=== PATIENT | male | born 1940 | race Caucasian/White ===

== ENCOUNTER 2022-11-05 11:02 | Inpatient (IN) | payer MEDICARE ==
[~2022-11-05] VITALS: Ht 170.2 cm; Wt 53.0 kg
[2022-11-05] MEDS ORDERED: LOPERAMIDE 2 MG (IMODIUM) TABLET PO PRN (11:15)
[2022-11-05] MEDS ORDERED: ONDANSETRON 4 MG (ZOFRAN) ORAL DISSOLVE TAB PO PRN (11:15)
[2022-11-05] MEDS ORDERED: ALPRAZolam 0.25 MG (XANAX) TAB PO PRN (11:15)
[2022-11-05] MEDS ORDERED: DOCUSATE SODIUM 100 MG (COLACE) CAP PO PRN (11:15)
[2022-11-05] MEDS ORDERED: diphenhydrAMINE 25 MG TAB (BENADRYL) PO PRN (11:15)
[2022-11-05] MEDS ORDERED: MELATONIN 3 MG TABLET PO PRN (11:15)
[2022-11-05] MEDS ORDERED: BISACODYL 10 MG SUPP (DULCOLAX) PR PRN (11:15)
[2022-11-05] MEDS ORDERED: FLEET ENEMA ADULT 1 EA BTL PR PRN (11:15)
[2022-11-05] MEDS ORDERED: CALCIUM CARBONATE 500 MG (TUMS) TAB.CHEW PO PRN (11:15)
[2022-11-05] MEDS ORDERED: ATOR80TA76 PO (13:34)
[2022-11-05] MEDS ORDERED: METO50TA15 PO (13:34)
[2022-11-05] MEDS ORDERED: ACET-2650 PO (13:34)
[2022-11-05] MEDS ORDERED: HYDR-3922 PO (13:34)
[2022-11-05] MEDS ORDERED: TRM50T PO (13:34)
[2022-11-05] MEDS ORDERED: METH-731 PO (13:34)
[2022-11-05] MEDS ORDERED: ASPI-1238 PO (13:34)
[2022-11-05] MEDS ORDERED: FERR324T22 PO (13:34)
[2022-11-05] MEDS ORDERED: CARV12.53 PO (13:34)
[2022-11-05] MEDS ORDERED: SENN-145 PO (13:34)
[2022-11-05] MEDS ORDERED: MULT-1136 PO (13:34)
[2022-11-05] MEDS ORDERED: VITA1TAB17 PO (13:34)
--- OUTSIDE RECORDS SUMMARY | 2022-11-05 14:57 | XMS REPORT | Encounter Summary ---
Author Author [facility] Organization [facility] Address Unknown Phone Unavailable Care Team Providers Care Human Resources Recruiter Name Role Phone Jorge Luis Cuba MD PCP Reason for Referral * Consult, Test & Treat (Discharge Pending) - New Request Diagnoses / Procedures Referred By Contact Referred To Conta ct Specialty Diagnoses Mass of right lung Procedures APPOINTMENT REQUEST: [facility] Shanelle Martinez APRN-NP [address] [facility] [address] [place] [address] [facility] Ex [address] Level [address] [place] [address] Oncology Referral ID Status Reason Start Date Expiration Visits Vi sits Date Requested Authorized [id number] New Request 11/05/2022 11/05/2023 1 1 RIBUTOR OPERATOR * Consult, Test & Treat (Discharge Pending) - Pending Review Diagnoses / Procedures Referred By Contact Referred To Conta ct Specialty Diagnoses Essential tremor Procedures APPOINTMENT REQUEST: NEUROSURGERY Madhavi Rodrigez APRN-NP [address] [facility] [address] [place] [address] [facility] 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 [place] [address] Neurosurgery Referral ID Status Reason Start Date Expiration Visits Vi sits Date Requested Authorized [id number] New Request 10/29/2022 10/29/2023 1 1 RIBUTOR OPERATOR Reason for Visit * Reason Comments Extremity Weakness All extremity weakness - tr emors - gargled speech - all symptoms x2 weeks - seen at [facility] tojules cali and told he has a subdural hematoma and possible stroke and told t o come to this ER * Auth/Cert (Routine) Diagnoses / Procedures Referred By Contact Referred To Conta ct Specialty Diagnoses SDH (subdural hematoma) Referral ID Status Reason Start Date Expiration Visits Vi sits Date Requested Authorized [id number] 1 1 Encounter Details Care Team Description Date Type Department Hunter Hernandez MD [address] [facility] [place] [address] Portillo March MD [address] [place] [address] Chioma Metzger MD [address] [facility] [place] [address] Sahil Mejia MD [address] [place], [place] [id number] Jose Manuel Montague MD [address] [place], [place] [id number] SDH (subdural hematoma) 10/24/2022 Hospital Patient Care Unit C [facility] - [facility]/05/2022 [address] [facility] 7 [place] [address] Social History Date Tobacco Use Types Packs/Day Years Used Smoking Tobacco: Every Cigarettes 0.5 Day Smokeless Tobacco: Never Comments Alcohol Use Standard Drinks/Week Not Currently 0 (1 standard drink = 0.6 o z pure alcohol) Sex Assigned at Date Recorded Not on file Date Recorded COVID-19 Exposure Response 10/24/2022 5:04 PM DISTRIBUTOR OPERATOR In the last 10 days, have you been in contact with N o / Unsure someone who was confirmed or suspected to have Coronavirus/COVID-19? documented as of this encounter Last Filed Vital Signs Reading Time Taken Comments Vital Sign 131/52 11/05/2022 7:45 AM DISTRIBUTOR OPERATOR Blood Pressure 56 11/05/2022 7:45 AM DISTRIBUTOR OPERATOR Pulse 36.8 C (98.3 F) 11/05/2022 7:45 AM DISTRIBUTOR OPERATOR Temperature - - Respiratory Rate 97% 11/05/2022 7:45 AM DISTRIBUTOR OPERATOR Oxygen Saturation - - Inhaled Oxygen Concentration 58.5 kg (129 lb) 10/25/2022 9:02 AM DISTRIBUTOR OPERATOR Weight 170.2 cm (5' 7") 10/25/2022 9:02 AM DISTRIBUTOR OPERATOR Height 20.2 10/25/2022 9:02 AM DISTRIBUTOR OPERATOR Body Mass Index documented in this encounter Functional Status Date of Assessment Functional Status Response 10/24/2022 Does the patient have a hearing impairment: No 09/27/2022 Does the patient have a visual impairment: Yes 09/27/2022 Does the patient have impaired ambulation: No 09/27/2022 Does the patient have an activity of daily living No (ADL) impairment: 09/27/2022 Does the patient have an instrumental activity of No daily living (IADL) impairment: Date of Assessment Cognitive Status Response 09/27/2022 Does the patient have a cognitive impairment: No documented as of this encounter Discharge Summaries * Amna Dent - 11/05/2022 11:32 AM CST CARBON FURNACE OPERATOR Note: Printed and placed transfer packet in the pt's wall unit per request from JAKE Alexander. Amna Dent Manager Primary For additional assistance please contact [facility] * RIBUTOR OPERATOR * Usha Arechiga LMSW - 11/05/2022 10:53 AM CST Case Management Progress Note NAME:Scot Bell :[birth year] AGE: 82 y.o. ADMISSION DATE: 10/24/2022 DAYS ADMITTED: LOS: 11 days Today's Date: 11/05/2022 PLAN: D/c to [facility] today by 12:30. Daughter to transport by POV. RN report #: Expected Discharge Date: 11/06/2022 4:00 PM Is Patient Medically Stable: Yes Are there Barriers to Discharge? no INTERVENTION/DISPOSITION: Discharge Planning [facility] has insurance auth and can accept today SW updated [facility] attending, who states that pt can d/c today Spoke with daughter who is at bedside and she states that she can transport h im today. IPR neds pt at facility before 3pm. Pt needs to leave by 12:30pm to make it o n time. SW updated [facility] admissions on plan. Tasked CARBON FURNACE OPERATOR to deliver transfer packet Transportation Will the Patient Use Family Transport?: Yes Transportation Name, Phone and Availability #1: pt's dtr Tamika [phone] Support Info or Referral Medication Needs Financial Legal Other Discharge Disposition Selected Continued Care - Admitted Since 10/24/2022 [facility] Destination Coordination complete. Service Provider Selected Services Address Phone Fax Patient Preferred [facility] Inpatient Rehabilitation [address] [place] [address] [phone] -- Usha Arechiga LMSW Available on [employer] Work RIBUTOR OPERATOR * Usha Arechiga LMSW - 10/31/2022 11:07 AM CST Case Management Progress Note NAME:Scot Bell :[birth year] AGE: 82 y.o. ADMISSION DATE: 10/24/2022 DAYS ADMITTED: LOS: 6 days Today's Date: 10/31/2022 PLAN[facility] [place] pending insurance auth and medical s tability Expected Discharge Date: 11/01/2022 12:00 PM Is Patient Medically Stable: No, Please explain: needs bronch Are there Barriers to Discharge? no INTERVENTION/DISPOSITION: Discharge Planning SW received return call from February in admissions at [facility] and they are able to accept pt for rehab. SW requests that they send to insurance for prior auth Pt still needing bronch SW called daughter and updated on approval. She remains in agreement with leonela culver Transportation Will the Patient Use Family Transport?: Yes Transportation Name, Phone and Availability #1: pt's dtr Tamika [phone] Support Info or Referral Medication Needs Financial Legal Other Discharge Disposition Selected Continued Care - Admitted Since 10/24/2022 [facility] Destination Coordination complete. Service Provider Selected Services Address Phone Fax Patient Preferred [facility] Inpatient Rehabilitation [address] [place] [phone] -- Usha Arechiga LMSW Available on [employer] Work RIBUTOR OPERATOR * Usha Arechiga LMSW - 10/30/2022 2:37 PM CST Case Management Progress Note NAME:Scot Bell :[birth year] AGE: 82 y.o. ADMISSION DATE: 10/24/2022 DAYS ADMITTED: LOS: 5 days Today's Date: 10/30/2022 PLAN: D/c to [facility] pending facility acceptance and insurance auth Expected Discharge Date: 11/01/2022 12:00 PM Is Patient Medically Stable: No, Please explain: finishing up procedures today Are there Barriers to Discharge? no INTERVENTION/DISPOSITION: Discharge Planning SW f/u with pt's daughter about dispo. Discussed differences between SNF and IPR. Dtr reports that whenever he is done at post acute facility he can live with her and she can help provide care if needed. Dtr requests referral be sent to IPR closest to [facility]. SW faxed referral to [facility] Transportation Will the Patient Use Family Transport?: Yes Transportation Name, Phone and Availability #1: pt's dtr Tamika [phone] Support Info or Referral Medication Needs Financial Legal Other Discharge Disposition Selected Continued Care - Admitted Since 10/24/2022 No services have been selected for the patient. Usha Arechiga LMSW Available on [employer] Work RIBUTOR OPERATOR * Deb Silva - 10/26/2022 10:29 AM CST CARBON FURNACE OPERATOR Note Emailed in network SNF list from pt's zip code & [place] Ricardo Per JAKE Cisneros. Ibis Silva Manager Primary For additional assistance please contact Case Management RIBUTOR OPERATOR * Chloe Pepe LMSW - 10/26/2022 9:35 AM CST .physical science technician Case Management Progress Note NAME:Scot Bell :[birth year] AGE: 82 y.o. ADMISSION DATE: 10/24/2022 DAYS ADMITTED: LOS: 1 day Today's Date: 10/26/2022 PLAN: Anticipate dc to SNF pending medical stability, facility acceptance and in surance auth. Expected Discharge Date: 10/29/2022 12:00 PM Is Patient Medically Stable: No, Please explain: ongoing medical care Are there Barriers to Discharge? no INTERVENTION/DISPOSITION: Discharge Planning JOEY asked provider to put in a rehab consult to determine appropriate level of care. SW tasked CARBON FURNACE OPERATOR for in network list of SNF list. SW talked to Tamika pt's dtr about support plan. Pt lives with his 2 sons. One works about 65 hours per week and is not home very often. the other brother has some mental health issues and can't really be depended on to assist much. She lives about 40 minutes away and works two jobs and is tongue and groove machine feeder sometimes so her i nteractions are limited as well. Sounds like pt may need SNF as he may need a lo nger time at a facility before going back home. Will bring dtr a list of facil ities to choose from to start planning. SW sent a referral to [facility] upon pt's dtr request. Case Management Admission Assessment NAME:Scot Bell : 1 AGE: 82 y.o. ADMISSION DATE: 10/24/2022 DAYS ADMITTED: LOS: 1 day Todays Date: 10/26/2022 Source of Information: Patient's dtr Tamika Plan Plan: Case Management Assessment, Psychosocial Assessment, Assist PRN with SW/NC M Services, Discharge Planning for Post-Acute Facility Plan: Case Management Assessment, Assist PRN with SW/NCM Services, Discharge Tom nning for Home with Post-Acute Care Needs ? Most recent therapy recommendations: ? PT: inpatient setting ? OT: inpatient setting ? ST: not consulted ? CM needs are not fully known, SNF NCM/SW team to continue to follow patient's plan of care via EMR and team huddle ; will assist with discharge planning needs as indicated. Assessment Notes Patient is agreeable to completing assessment at this time. ? SW provided contact information, explanation of CM roles, and general review o f Preparing for Discharge, [facility] + Preferred Provider Network ching bruner. Patient encouraged to contact case management with questions and concerns during hospitalization. ? Patient lives with his 2 adult sons The home accomodates single-level living. The home has 2 TERRELL ? Patient is typically independent in all ADLs and mobility without devices. H e has needed more help since beginning of October. He is having essential trem ors that makes eating difficult. He has a RW, w/c and shower chair for assistan ce. ? Home support is assessed to be intermittent. Pt's one son works 65+ hours a week and is not home much and other son has mental health issues that does not m mone him dependable for assistance. ? Patient's previous HH, LTACH, SNF, IPR, DME, outpatient therapy experience inc aleah: ? SNF-7 years ago, [facility] [place] ? DME RW, w/c, shower chair ? Transport plan will be pt's dtr Tamika ? Pt fills medications at [facility] in [place]. Patient Address/Phone [address] [place] [id number] (home) Emergency Contact Extended Emergency Contact Information Primary Emergency Contact: TAMIKA SAMPSON Mobile Relation: Daughter Preferred language: SYRIAC Outsole Molder needed? No Healthcare Directive Healthcare Directive: No, patient does not have a healthcare directive Would patient like to fill out a (a new) Healthcare Directive?: Yes, referral to Social Work Psych Advance Directive (Psych unit only): No, patient does not have a Psych Adv ance Directive Would like to complete a medical DPOA. Transportation Will the Patient Use Family Transport?: Yes Transportation Name, Phone and Availability #1: pt's dtr Tamika [phone] Expected Discharge Date 10/29/2022 12:00 PM Living Situation Prior to Admission Living Arrangements Type of Residence: Home, dependent on others Living Arrangements: Family members (pt lives with his two adult sons) Bathroom Shower / Tub: Tub/Shower Unit How many levels in the residence?: 1 Can patient live on one level if needed?: Yes Does residence have entry and/or side stairs?: Yes (2 TERRELL) Assistance needed prior to admit or anticipated on discharge: Yes Who provides assistance or could if needed?: pt's son works 65 hours a week and is not home much, other son has PTSD and Mental Health issues, is not able to he lp much, dtr lives 45 minutes away can provide intermittent support Are they in good health?: Yes Can support system provide 24/7 care if needed?: No Level of Function Prior level of function: Needs assist with ADLs Which ADLs require assistance?: before October was independent, but now having tremors, difficult to eat due to shaking Who assists with ADLs?: dtr preps shakes for pt to eat in a cup that won't spill ; Cognitive Abilities Cognitive Abilities: Continue to Assess (completed assessment with dtr.) Financial Resources Coverage Primary Insurance: Medicare Replacement Source of Income Source Of Income: Other senior care income Financial Assistance Needed? NA- did discuss Medicaid referral but pt owns his home and would be over assets. Psychosocial Needs Mental Health Mental Health History: No Substance Use History Substance Use History Screen: No Other NA Current/Previous Services PCP Jorge Luis Cuba, , Pharmacy [facility] [address] [facility] [address] [facility] [place], [place] - [address] [place] [address]. [address] [place] [id number] Durable Medical Equipment Durable Medical Equipment at home: Roller Walker, Wheelchair (manual), Shower Ch air Home Health Receiving home health: No Hemodialysis or Peritoneal Dialysis Undergoing hemodialysis or peritoneal dialysis: No Tube/Enteral Feeds Receive tube/enteral feeds: No Infusion Receive infusions: No Private Duty Private duty help used: No Home and Community Based Services Home and community based services: No Roberto Mejia White: N/A Hospice Hospice: No Outpatient Therapy PT: No OT: No BUILDING TRADES INSTRUCTOR: No Detention Facility/Longterm SNF: In the past When did patient receive care?: 7 years ago Name of Facility: [facility] Would patient return for future services?: Yes NH: No Inpatient Rehab IPR: No Long-Term Acute Care Hospital LTACH: No Acute Hospital Stay Acute Hospital Stay: No Chloe Pepe LMSW Social Work Case Management Available on [employer] RIBUTOR OPERATOR documented in this encounter Discharge Instructions * Attachments The following attachments cannot be sent through Care Everywhere.* IR- Arteriogram Discharge Instructions (SYRIAC) documented in this encounter Medications at Time of Discharge Start Date End Date Medication Sig Dispensed Refills acetaminophen SR Take 650 mg 0 (TYLENOL) 650 mg tablet by mouth every 8 hours as needed for Pain. 11/06/2022 aspirin EC 81 mg tablet Take one 90 tablet 0 tablet by mouth daily. Take with food. 07/29/2022 atorvastatin (LIPITOR) 80 Take 80 mg by 0 mg tablet mouth daily. 11/05/2022 carvediloL (COREG) 12.5 Take one 180 tablet 0 mg tablet tablet by mouth twice daily. Take with food. 11/07/2022 ferrous gluconate 324 mg Take one 0 (37.5 mg iron) tab tablet by mouth every 48 hours. 11/05/2022 hydrALAZINE (APRESOLINE) Take two 270 tablet 0 10 mg tablet tablets by mouth every 8 hours as needed (SBP >160). 11/05/2022 methocarbamoL (ROBAXIN) Take one 15 tablet 0 500 mg tablet tablet by mouth twice daily. 11/05/2022 senna/docusate Take one 90 tablet 0 (SENOKOT-S) 8.6/50 mg tablet by tablet mouth twice daily. 11/05/2022 traMADoL (ULTRAM) 50 mg Take one 0 tablet tablet by mouth every 6 hours as needed. vitamins, B complex tab Take 1 tablet 0 by mouth daily. vitamins, multiple cap Take 1 0 capsule by mouth daily. documented as of this encounter Ordered Prescriptions Start Date End Date Prescription Sig Dispensed Refills 11/05/2022 traMADoL (ULTRAM) 50 mg Take one 0 tablet tablet by mouth every 6 hours as needed. 11/05/2022 senna/docusate Take one 90 tablet 0 (SENOKOT-S) 8.6/50 mg tablet by tablet mouth twice daily. 11/05/2022 methocarbamoL (ROBAXIN) Take one 15 tablet 0 500 mg tablet tablet by mouth twice daily. 11/05/2022 hydrALAZINE (APRESOLINE) Take two 270 tablet 0 10 mg tablet tablets by mouth every 8 hours as needed (SBP >160). 11/07/2022 ferrous gluconate 324 mg Take one 0 (37.5 mg iron) tab tablet by mouth every 48 hours. 11/06/2022 aspirin EC 81 mg tablet Take one 90 tablet 0 tablet by mouth daily. Take with food. 11/05/2022 carvediloL (COREG) 12.5 Take one 180 tablet 0 mg tablet tablet by mouth twice daily. Take with food. documented in this encounter Discharge Disposition Code Departure Means Destination Disposition Wheelchair Home or Self Care documented in this encounter Progress Notes * Kathy Reid RN - 11/05/2022 12:18 PM CST Discharge education provided to patient and patient's daughter. All questions ad dressed and answered. Understanding verbalized. Prescriptions and handouts provi ded. Belongs identified. Peripheral IV removed. [facility] via whee lchair with belongings in hand where daughter is waiting to take him to [facility], for IPR. RIBUTOR OPERATOR * Shauna Sun, OT - 11/05/2022 10:34 AM CST OCCUPATIONAL THERAPY PROGRESS NOTE Name: Scot Bell : 1940 Age: 82 y.o. Admission Date: 10/24/2022 LOS: 11 days Date of Service: 11/05/2022 Mobility Patient Turn/Position: Chair Progressive Mobility Level: Walk in hallway Distance Walked (feet): 120 ft Level of Assistance: Assist X1 Assistive Device: Hand Held Activity Limited By: Weakness Subjective Pertinent Dx per Physician: Scot Bell is a 82 y.o. 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 Precautions: Standard;Falls Pain / Complaints: Patient agrees to participate in therapy;Patient has no c/o p ain Comments: Upon arrival, patient in bed. After session, patient in chair, alarm o n, and all needs in reach. RN notified. Objective Psychosocial Status: Willing and Cooperative to Participate Persons Present: Daughter;Family Home Living Type of Home: House Home Layout: One Level;Stairs to Enter w/o Rails Bathroom Shower / Tub: Tub/Shower Unit Bathroom Toilet: Standard Bathroom Equipment: Shower Chair Home Equipment: Cane;Walker;Wheelchair-manual Comment: 2 steps to enter Prior Function Level Of [place]: Independent with ADLs and functional transfers;Needed ass istance with homemaking Lives With: Family (two sons) Receives Help From: Family Other Function Comments: Per patient, he was ambulating independently and able t o manage ADLs. Sons help with IADLs. Patient has had tremors so typically eats f jabier food. He has tried adaptive utensils but reported they have not worked for him Vision Comments: Appears to have improved since last visit however significantly impair ed. When asked if patient can see in his central vision, patient responds "somet imes" and unable to elaborate. ADL's Where Assessed: In Bathroom Toileting Assist: Maximum Assist Toileting Deficits: Supervision/Safety;Steadying;Perineal Hygiene Comment: Requires assist with managing underwear and assist with hygiene seconda ry to BUE tremors. ADL Mobility Bed Mobility: Supine to Sit: Moderate assist Bed Mobility Comments: HOB elevated, requires assist to come to EOB secondary to tremors. Transfer Type: Sit to stand Transfer: Assistance Level: Minimal assist;From;Bed Transfer: Assistive Device: Hand hold assist Transfer: Type of Assistance: For balance;For safety considerations End of Activity Status: Up in chair;Nursing notified;Instructed patient to use c all light;Instructed patient to request assist with mobility Transfer Comments: Sit <> stands with minimal assist x1 Sitting Balance: Standby assist Standing Balance: Minimal assist;Static standing balance Gait Distance: 120 feet Gait: Assistance Level: Minimal assist Gait: Assistive Device: Hand hold assist Gait Comments: Patient ambulates with minimal assist x1 hand hold. No loss of ba gerardo, tolerates well. Activity Tolerance Endurance: 4/5 Tolerates 30+ Minutes Exercise W/O Fatigue Cognition Overall Cognitive Status: Impaired Cognition Comment: Mentation improved from last session however still impaired UE PROM R UE ROM: WFL L UE ROM: WFL R LE ROM: WFL L LE ROM: WFL ROM Comments: moderate tremors BUEs Sensory Proprioception: L UE Decreased/Impaired Assessment Assessment: Decreased ADL Status;Decreased UE ROM;Decreased UE Strength;Decrease d Safe/Judg during ADL;Decreased Cognition;Decreased Endurance;Visual Deficit;De creased Fine Motor Coordination;Decreased Self-Care Trans Prognosis: Good;w/Cont OT s/p Acute Discharge Comments: Patient presents with impaired balance, decreased motor planning, sign ificant visual deficits, cognitive deficits, and hands on assist impacting indep endence with ADLs and mobility. Will benefit from therapeutic intervention. AM-PAC 6 Clicks Daily Activity Inpatient Putting on and taking off regular lower body clothes: A Lot Bathing (Including washing, rinsing, drying): A Lot Toileting, which includes using toilet, bedpan, or urinal: A Lot Putting on and taking off regular upper body clothing: A Lot Taking care of personal grooming such as brushing teeth: A Little Eating meals: A Little Daily Activity Raw Score: 14 Standardized (T-scale) Score: 33.39 Plan OT Frequency: 5x/week OT Plan for Next Visit: Continue to assess vision/visual scanning, grooming at s ink, standing balance, endurance ADL Goals Patient Will Perform All ADL's: w/ Minimal Assist Functional Transfer Goals Pt Will Perform All Functional Transfers: Minimum Assist Vision Goals Pt Will Scan Environment: 100% of the time, w/ Minimal Cues OT Discharge Recommendations Recommendation: Inpatient setting Patient Currently Requires Physical Assist With: All mobility;All personal care ADLs;All home functioning ADLs Therapist: Shauna Sun OTR/L [id number] Date: 11/05/2022 RIBUTOR OPERATOR * Jose Manuel Montague MD - 11/04/2022 9:01 AM CST General Progress Note Name: Scot Bell Today's Date: 11/04/2022 Admission Date: 10/24/2022 LOS: 10 days Assessment/Plan: Principal Problem: SDH (subdural hematoma) Active Problems: Essential tremor PAD (peripheral artery disease) (HCC) Delirium Thrombocytopenia (HCC) Primary hypertension Coronary artery disease involving [place] coronary artery of [place] heart witho ut angina pectoris Chronic low back pain Assessment/Plan: Scot Bell is a 82 y.o. 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 Medicine consulted for management of multiple co-morbidities as well as work up of new possible lung mass Acute on chronic R subdural hemorrhage - found incidentally during outpatient evaluation for Focused US for essential t remor. Repeat CT at admission with concern for interval bleed, mixed blood produ cts on scan - S/p IR R MMA embolization on 10/28 due to anticipated need for AC > Resumed ASA and dvt ppx on 11/01 > Neurosurgery rec to keep SBP <160, per Neurosurgery's note from 10/28, they are ok with antiplatelet therapy and AC once procedures are completed. 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 US showed Atherosclerotic disease resulting in a severe, likely near occlusive luminal stenosis of the left cervi milagro vertebral origin. - stroke work up initiated by neurology - defer need for vascular intervention to neuro/neurosurgery - patient stroke actived on 10/27 for increased confusion NIHSS 6 (mainly for ac [place] confusion; inability to answer orientation questions, follow commands, unabl e to comprehend; answer appropriately, inconsistent response to visual threat. A t baseline patient has LUQ visual field deficit)-- suspect stroke mimic - 65 minute EEG abnormal >1 hour EEG is indicative of a mild to moderate encephalopathy. No epileptiform signs are seen. - ANSELMO 10/29: There was no thrombus visualized in the left atrial appendage utili zing multiple views and color flow Doppler. No interatrial shunting by color-richard w or agitated saline contrast. There was rare, late (>5 beats) agitated saline contrast seen in the left atrium which is most suggestive of a pulmonary source of shunting. Qualitatively normal LV size and systolic function, EF ~ 60-65 %. Qualitatively normal RV size and systolic function. Mildly dilated left atrium, normal size right atrium. 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 No evidence of valvular stenosis with thin leaflets with normal leaflet excursion (peak velocity = 2.6 m/s, mean gradient = 13 mmHg, AT =95 ms). There is mild to moderate paravalvular regurgitation at the 12 to 1 o'clock position. No transvalvular regurgitation. There is moderate mitral annular calcification with mild mitral stenosis (mean gradient of 4 mmHg at 63 bpm, MVA = 1.59 cm). There is mild-moderate mitral regurgitation. Mild to moderate tricuspid regurgitation. Moderate layered atheromatous plaque present in the descending aorta. No pericardial effusion. - Mental status continues to wax and wane on 10/31 > Neurology is consulted, appreciate recs. Resume ASA once able. 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 SNF on discharge. PMR rec IPR. > Delirium precautions, limit opiates and anticholinergics as able Mass-like RUL opacity, concern for primary neoplasm Mediastinal and Hilar LAD, concern for metastatic disease Tree-in-bud opacities Nicotine dependence - smokes 1/2 PPD but has 120 pack year history - Patient asymptomatic from an infectious standpoint. He has chronic cough produ ctive of clear sputum that is unchanged. He is not meeting SIRS criteria. Conc erning for underlying malignancy. He has had weight loss that was previously at tributed to his essential tremor and inability to eat but no other constitutiona l symptoms. - 10/26 CT chest with contrast 1. 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 2. Mild c ardiomegaly with interstitial thickening and groundglass opacity throughout both lungs, most likely representing CHF. 3. Moderate mediastinal and bilateral hi lar lymphadenopathy suspicious for metastatic disease. 4. Diffuse nodularity t hroughout both lungs and pleura concerning for metastatic disease. This could al so be infectious. 5. Moderate emphysema and scattered areas of scarring. 6. Trace pleural effusions. 7. Small hypodense right renal lesion is indeterminat e and may be a cyst. Ultrasound characterization is recommended. 8. Marked cor onary artery calcification. - PET Scan 10/30: Limited examination due to diffuse muscular uptake from hyperi nsulinemia and misregistration. Irregular hypermetabolic right upper lobe pulmon giovanna mass most compatible with primary neoplasm. Hypermetabolic mediastinal and b ilateral hilar lymphadenopathy suggestive of jodie metastatic disease. Consider endobronchial ultrasound and biopsy for confirmation. Innumerable tiny pulmonary nodules, opacities, and septal thickening throughout both lungs suggestive of m etastatic disease or possible superimposed infection. See recent CT chest - EBUS on 10/31, Malignant cells from station 11L. -Path pending. Prelim with concern for malignancy - CT Chest w/o 10/31 Slight decrease in size of right upper lobe pulmonary mas s again most suspicious for a primary pulmonary neoplasm. Correlate with patholo gy results. Improved peripheral predominant patchy ground glass opacities, likel y represents improving yet persistent underlying infection. Similar diffuse nodu larity throughout all 5 lobes and pleura, concerning for metastatic disease vers us diffuse infectious process. Similar mediastinal and hilar lymphadenopathy, mo st likely representing jodie metastatic disease or less likely reactive lymph no mu. Right renal lesion of indeterminate density is not well appreciated in the absence IV contrast. Correlation with ultrasound is recommended. > Pulmonary following > Oncology are consulted, appreciate recs - Will plan for medical oncology follow up at [facility]. Will follow up PET , and path results. > No antibiotics indicated at this time; afebrile, no leukocytosis, stable resp status > Continue robitussin PRN, cough drops PRN, > PRN NRT (lozenges) and encouraged smoking cessation Macrocytosis with minimal anemia Thrombocytopenia; improved Lymphopenia - mild anemia but macrocytic. Also with mild thrombocytopenia, lymphopenia. Po ssibly nutritional - Iron studies with mild iron deficiency - B12 and folate replete > Continue to monitor > PO Iron supp started Urinary retention Hematuria - noted on UA - 10/28 possible urinary retention > Bladder scan and prn straight cath > Repeat UA as an outpatient. If hematuria persists, will need urology referral Weight loss - Secondary to essential tremor versus underlying malignancy. > Balancing Machine Set Up Worker consult for nutritional assessment s/p TAVR several years ago Hx of HTN, HLD, PAD - hx of Stenting/balloon angioplasty to RLE. Has chronic claudication symptoms - CT chest with marked coronary calcifications > Continue RETIREMENT SALES CONSULTANT statin. > Change RETIREMENT SALES CONSULTANT metoprolol tartrate 50mg BID to Coreg 12.5mg BID for better BP control. May add amlodipine if BP not well controlled with change. - Has PRN Labetalol and Hydralazine PRN. > Resumed ASA as above. Chronic LBP - hx of multiple steroid injections s/p surgical intervention > Continue scheduled APAP 1000mg TID with LFT monitoring, ibuprofen 600mg Q6H PRN > Continue lidocaine patch to back > Has robaxin, tramadol as well. - daughter states oxycodone has caused confusion in the past - D/c'ed oxycodone on 10/29 > Scheduled bowel regimen is ordered, monitor for BM > Can consider interventional anesthesia if he desires intervention, but sounds as if they have not been effective for him in the past CAD with hx of PCI - Per reports had staged PCI ~ 3 years ago. Was taking full dose ASA multiple ti mes per day for pain, off since Nov due to SDH > Continue BB, statin > Resumed ASA as above Essential Tremor - plan was for focused ultrasound but work up revealed incidental SDH > Defer to outpatient neurosrugery > PT/OT consulted FEN: - No IVFs. - Replace lytes prn. - DIET REGULAR PPx: - LMWH Code: - Full Code . Dispo: - Cont inpatient admission to medicine. Will need facility placement. Jose Manuel Montague MD [facility] [id number] I spent 35 minute in patient care. > 50% of the time was spent in evaluating patient and coordinating discharge Subjective Scot Bell is a 82 y.o. male. No acute events overnight. He is alert. Able to say his name. Denied any complaint. Follows commands. No family at bedside tod ay. Ros not obtained due to patient mentation. Medications Scheduled Meds:acetaminophen (TYLENOL EXTRA STRENGTH) tablet 1,000 mg, 1,000 mg, Oral, Q8H aspirin EC tablet 81 mg, 81 mg, Oral, QDAY atorvastatin (LIPITOR) tablet 80 mg, 80 mg, Oral, QDAY carvediloL (COREG) tablet 12.5 mg, 12.5 mg, Oral, BID docusate (COLACE) capsule 100 mg, 100 mg, Oral, BID enoxaparin (LOVENOX) syringe 40 mg, 40 mg, Subcutaneous, QDAY(21) ferrous gluconate tablet 324 mg, 324 mg, Oral, Q48H* fluticasone propionate (FLONASE) nasal spray 2 spray, 2 spray, Each Nostril, QDA Y lidocaine (LIDODERM) 5 % topical patch 1 patch, 1 patch, Topical, QDAY methocarbamoL (ROBAXIN) tablet 500 mg, 500 mg, Oral, BID milk of magnesia (CONC) oral suspension 10 mL, 10 mL, Oral, QDAY polyethylene glycol 3350 (MIRALAX) packet 17 g, 1 packet, Oral, QDAY senna/docusate (SENOKOT-S) tablet 1 tablet, 1 tablet, Oral, BID Continuous Infusions: PRN and Respiratory Meds:dextromethorphan/guaiFENesin (ROBITUSSIN-DM) oral syru p Q6H PRN, eucalyptus-menthoL Q2H PRN, hydrALAZINE Q8H PRN, labetalol (NORMODYNE ; TRANDATE) injection Q15 MIN PRN, nicotine (polacrilex) Q1H PRN, ondansetron (Z OFRAN) IV Q6H PRN, sodium chloride PRN, traMADoL Q6H PRN Objective: Vital Signs: Last Filed Vital Signs: 24 [place] Range BP: 158/67 (11/04 716) Temp: 36.7 C (98 F) (11/04 716) Pulse: 65 (11/04 716) Respirations: 16 PER MINUTE (11/04 716) SpO2: 97 % (11/04 716) O2 Device: None (Room air) (11/04 716) BP: (133-158)/(47-90) Temp: [36.3 C (97.3 F)-37.1 C (98.7 F)] Pulse: [56-82] Respirations: [16 PER MINUTE-18 PER MINUTE] SpO2: [92 %-97 %] O2 Device: None (Room air) Vitals: 10/25/22901 Weight: 58.5 kg (129 lb) Intake/Output Summary: (Last 24 hours) No intake or output data in the 24 hours ending 11/04/22900 Stool Occurrence: 1 Physical Exam General: thin elderly male appears stated age, in NAD Head: Normocephalic, atraumatic Eyes: Normal conjunctiva, non-icteric sclera Neck: Trachea midline, no stridor Lungs: Clear to auscultation bilaterally, non-labored on RA Heart: Regular rate and rhythm, 2/6 ejection systolic murmur noted at the apex Ext: no peripheral edema. Abdomen: Soft, non-tender. Bowel sounds + Skin: Warm and dry Lab Review Pertinent labs reviewed. Point of Care Testing (Last 24 hours) Radiology and other Diagnostics Review: Pertinent radiology reviewed. RIBUTOR OPERATOR * Jose Manuel Montague MD - 11/03/2022 8:07 AM CST General Progress Note Name: Scot Bell Today's Date: 11/03/2022 Admission Date: 10/24/2022 LOS: 9 days Assessment/Plan: Principal Problem: SDH (subdural hematoma) Active Problems: Essential tremor PAD (peripheral artery disease) (HCC) Delirium Thrombocytopenia (HCC) Primary hypertension Coronary artery disease involving [place] coronary artery of [place] heart witho ut angina pectoris Chronic low back pain Assessment/Plan: Scot Bell is a 82 y.o. 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 Medicine consulted for management of multiple co-morbidities as well as work up of new possible lung mass Acute on chronic R subdural hemorrhage - found incidentally during outpatient evaluation for Focused US for essential t remor. Repeat CT at admission with concern for interval bleed, mixed blood produ cts on scan - S/p IR R MMA embolization on 10/28 due to anticipated need for AC > Resumed ASA and dvt ppx on 11/01 > Neurosurgery rec to keep SBP <160, per Neurosurgery's note from 10/28, they are ok with antiplatelet therapy and AC once procedures are completed. 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 US showed Atherosclerotic disease resulting in a severe, likely near occlusive luminal stenosis of the left cervi milagro vertebral origin. - stroke work up initiated by neurology - defer need for vascular intervention to neuro/neurosurgery - patient stroke actived on 10/27 for increased confusion NIHSS 6 (mainly for ac [place] confusion; inability to answer orientation questions, follow commands, unabl e to comprehend; answer appropriately, inconsistent response to visual threat. A t baseline patient has LUQ visual field deficit)-- suspect stroke mimic - 65 minute EEG abnormal >1 hour EEG is indicative of a mild to moderate encephalopathy. No epileptiform signs are seen. - ANSELMO 10/29: There was no thrombus visualized in the left atrial appendage utili zing multiple views and color flow Doppler. No interatrial shunting by color-richard w or agitated saline contrast. There was rare, late (>5 beats) agitated saline contrast seen in the left atrium which is most suggestive of a pulmonary source of shunting. Qualitatively normal LV size and systolic function, EF ~ 60-65 %. Qualitatively normal RV size and systolic function. Mildly dilated left atrium, normal size right atrium. 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 No evidence of valvular stenosis with thin leaflets with normal leaflet excursion (peak velocity = 2.6 m/s, mean gradient = 13 mmHg, AT =95 ms). There is mild to moderate paravalvular regurgitation at the 12 to 1 o'clock position. No transvalvular regurgitation. There is moderate mitral annular calcification with mild mitral stenosis (mean gradient of 4 mmHg at 63 bpm, MVA = 1.59 cm). There is mild-moderate mitral regurgitation. Mild to moderate tricuspid regurgitation. Moderate layered atheromatous plaque present in the descending aorta. No pericardial effusion. - Mental status continues to wax and wane on 10/31 > Neurology is consulted, appreciate recs. Resume ASA once able. 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 SNF on discharge. PMR rec IPR. > Delirium precautions, limit opiates and anticholinergics as able Mass-like RUL opacity, concern for primary neoplasm Mediastinal and Hilar LAD, concern for metastatic disease Tree-in-bud opacities Nicotine dependence - smokes 1/2 PPD but has 120 pack year history - Patient asymptomatic from an infectious standpoint. He has chronic cough produ ctive of clear sputum that is unchanged. He is not meeting SIRS criteria. Conc erning for underlying malignancy. He has had weight loss that was previously at tributed to his essential tremor and inability to eat but no other constitutiona l symptoms. - 10/26 CT chest with contrast 1. 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 2. Mild c ardiomegaly with interstitial thickening and groundglass opacity throughout both lungs, most likely representing CHF. 3. Moderate mediastinal and bilateral hi lar lymphadenopathy suspicious for metastatic disease. 4. Diffuse nodularity t hroughout both lungs and pleura concerning for metastatic disease. This could al so be infectious. 5. Moderate emphysema and scattered areas of scarring. 6. Trace pleural effusions. 7. Small hypodense right renal lesion is indeterminat e and may be a cyst. Ultrasound characterization is recommended. 8. Marked cor onary artery calcification. - PET Scan 10/30: Limited examination due to diffuse muscular uptake from hyperi nsulinemia and misregistration. Irregular hypermetabolic right upper lobe pulmon giovanna mass most compatible with primary neoplasm. Hypermetabolic mediastinal and b ilateral hilar lymphadenopathy suggestive of jodie metastatic disease. Consider endobronchial ultrasound and biopsy for confirmation. Innumerable tiny pulmonary nodules, opacities, and septal thickening throughout both lungs suggestive of m etastatic disease or possible superimposed infection. See recent CT chest - EBUS on 10/31, Malignant cells from station 11L. -Path pending. Prelim with concern for malignancy - CT Chest w/o 10/31 Slight decrease in size of right upper lobe pulmonary mas s again most suspicious for a primary pulmonary neoplasm. Correlate with patholo gy results. Improved peripheral predominant patchy ground glass opacities, likel y represents improving yet persistent underlying infection. Similar diffuse nodu larity throughout all 5 lobes and pleura, concerning for metastatic disease vers us diffuse infectious process. Similar mediastinal and hilar lymphadenopathy, mo st likely representing jodie metastatic disease or less likely reactive lymph no mu. Right renal lesion of indeterminate density is not well appreciated in the absence IV contrast. Correlation with ultrasound is recommended. > Pulmonary following > Oncology are consulted, appreciate recs - Will plan for medical oncology follow up at [facility]. Will follow up PET , and path results. > No antibiotics indicated at this time; afebrile, no leukocytosis, stable resp status > Continue robitussin PRN, cough drops PRN, > PRN NRT (lozenges) and encouraged smoking cessation Macrocytosis with minimal anemia Thrombocytopenia; improved Lymphopenia - mild anemia but macrocytic. Also with mild thrombocytopenia, lymphopenia. Po ssibly nutritional - Iron studies with mild iron deficiency - B12 and folate replete > Continue to monitor > PO Iron supp started Urinary retention Hematuria - noted on UA - 10/28 possible urinary retention > Bladder scan and prn straight cath > Repeat UA as an outpatient. If hematuria persists, will need urology referral Weight loss - Secondary to essential tremor versus underlying malignancy. > Balancing Machine Set Up Worker consult for nutritional assessment s/p TAVR several years ago Hx of HTN, HLD, PAD - hx of Stenting/balloon angioplasty to RLE. Has chronic claudication symptoms - CT chest with marked coronary calcifications > Continue RETIREMENT SALES CONSULTANT statin. > Change RETIREMENT SALES CONSULTANT metoprolol tartrate 50mg BID to Coreg 12.5mg BID for better BP control. May add amlodipine if BP not well controlled with change. - Has PRN Labetalol and Hydralazine PRN. > Resumed ASA as above. Chronic LBP - hx of multiple steroid injections s/p surgical intervention > Continue scheduled APAP 1000mg TID with LFT monitoring, ibuprofen 600mg Q6H PRN > Continue lidocaine patch to back > Has robaxin, tramadol as well. - daughter states oxycodone has caused confusion in the past - D/c'ed oxycodone on 10/29 > Scheduled bowel regimen is ordered, monitor for BM > Can consider interventional anesthesia if he desires intervention, but sounds as if they have not been effective for him in the past > May also consider addition of gabapentin CAD with hx of PCI - Per reports had staged PCI ~ 3 years ago. Was taking full dose ASA multiple ti mes per day for pain, off since Sep due to SDH > Continue BB, statin > Resumed ASA as above Essential Tremor - plan was for focused ultrasound but work up revealed incidental SDH > Defer to outpatient neurosrugery > PT/OT consulted FEN: - No IVFs. - Replace lytes prn. - DIET REGULAR PPx: - LMWH Code: - Full Code . Dispo: - Cont inpatient admission to medicine. Will need facility placement. Jose Manuel Montague MD [employer] [id number] Voalte is the preferred method of communication. Please use the [employer] First Call for all patient-related communications. Pe rsonal Voaltes and pagers are not answered at all hours. I spent 35 minute in patient care. > 50% of the time was spent in evaluating patient and coordinating discharge Subjective Scot Bell is a 82 y.o. male. No acute events overnight. Patient sleeping thi s am. Wakes up to voice. Per daughter he is continuing to show improvement. He w as able to have a conversation on the phone yesterday. She reports he continues to have poor appetite. He had cough this morning however otherwise doing well. Ros not obtained due to patient mentation. Medications Scheduled Meds:acetaminophen (TYLENOL EXTRA STRENGTH) tablet 1,000 mg, 1,000 mg, Oral, Q8H aspirin EC tablet 81 mg, 81 mg, Oral, QDAY atorvastatin (LIPITOR) tablet 80 mg, 80 mg, Oral, QDAY carvediloL (COREG) tablet 12.5 mg, 12.5 mg, Oral, BID docusate (COLACE) capsule 100 mg, 100 mg, Oral, BID enoxaparin (LOVENOX) syringe 40 mg, 40 mg, Subcutaneous, QDAY(21) ferrous gluconate tablet 324 mg, 324 mg, Oral, Q48H* fluticasone propionate (FLONASE) nasal spray 2 spray, 2 spray, Each Nostril, QDA Y lidocaine (LIDODERM) 5 % topical patch 1 patch, 1 patch, Topical, QDAY methocarbamoL (ROBAXIN) tablet 500 mg, 500 mg, Oral, BID milk of magnesia (CONC) oral suspension 10 mL, 10 mL, Oral, QDAY polyethylene glycol 3350 (MIRALAX) packet 17 g, 1 packet, Oral, QDAY senna/docusate (SENOKOT-S) tablet 1 tablet, 1 tablet, Oral, BID Continuous Infusions: PRN and Respiratory Meds:dextromethorphan/guaiFENesin (ROBITUSSIN-DM) oral syru p Q6H PRN, eucalyptus-menthoL Q2H PRN, hydrALAZINE Q8H PRN, labetalol (NORMODYNE ; TRANDATE) injection Q15 MIN PRN, nicotine (polacrilex) Q1H PRN, ondansetron (Z OFRAN) IV Q6H PRN, sodium chloride PRN, traMADoL Q6H PRN Objective: Vital Signs: Last Filed Vital Signs: 24 [place] Range BP: 157/91 (11/03 741) Temp: 36.6 C (97.9 F) (11/03 741) Pulse: 63 (11/03 741) Respirations: 17 PER MINUTE (11/03 741) SpO2: 94 % (11/03 741) O2 Device: None (Room air) (11/03 741) BP: (116-157)/(55-91) Temp: [36.4 C (97.5 F)-36.6 C (97.9 F)] Pulse: [55-63] Respirations: [16 PER MINUTE-17 PER MINUTE] SpO2: [94 %-99 %] O2 Device: None (Room air) Vitals: 10/25/22 0902 Weight: 58.5 kg (129 lb) Intake/Output Summary: (Last 24 hours) Intake/Output Summary (Last 24 hours) at 11/03/2022 0807 Last data filed at 11/03/2022 0555 Gross per 24 hour Intake 605 ml Output 550 ml Net 55 ml Stool Occurrence: 0 Physical Exam General: thin elderly male appears stated age, in NAD Head: Normocephalic, atraumatic Eyes: Normal conjunctiva, non-icteric sclera Neck: Trachea midline, no stridor Lungs: Clear to auscultation bilaterally, non-labored on RA Heart: Regular rate and rhythm, 2/6 ejection systolic murmur noted at the apex Ext: no peripheral edema. Abdomen: Soft, non-tender. Bowel sounds + Skin: Warm and dry Lab Review Pertinent labs reviewed. Point of Care Testing (Last 24 hours) Glucose: (!) 105 (11/03/22 0413) Radiology and other Diagnostics Review: Pertinent radiology reviewed. RIBUTOR OPERATOR * Jose Manuel Montague MD - 11/02/2022 8:55 AM CST General Progress Note Name: Scot Bell Today's Date: 11/02/2022 Admission Date: 10/24/2022 LOS: 8 days Assessment/Plan: Principal Problem: SDH (subdural hematoma) Active Problems: Essential tremor PAD (peripheral artery disease) (HCC) Delirium Thrombocytopenia (HCC) Primary hypertension Coronary artery disease involving [place] coronary artery of [place] heart witho ut angina pectoris Chronic low back pain Assessment/Plan: Scot Bell is a 82 y.o. 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 Medicine consulted for management of multiple co-morbidities as well as work up of new possible lung mass Acute on chronic R subdural hemorrhage - found incidentally during outpatient evaluation for Focused US for essential t remor. Repeat CT at admission with concern for interval bleed, mixed blood produ cts on scan - S/p IR R MMA embolization on 10/28 due to anticipated need for AC > Resumed ASA and dvt ppx on 11/01 > Neurosurgery rec to keep SBP <160, per Neurosurgery's note from 10/28, they are ok with antiplatelet therapy and AC once procedures are completed. 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 US showed Atherosclerotic disease resulting in a severe, likely near occlusive luminal stenosis of the left cervi milagro vertebral origin. - stroke work up initiated by neurology - defer need for vascular intervention to neuro/neurosurgery - patient stroke actived on 10/27 for increased confusion NIHSS 6 (mainly for ac [place] confusion; inability to answer orientation questions, follow commands, unabl e to comprehend; answer appropriately, inconsistent response to visual threat. A t baseline patient has LUQ visual field deficit)-- suspect stroke mimic - 65 minute EEG abnormal >1 hour EEG is indicative of a mild to moderate encephalopathy. No epileptiform signs are seen. - ANSELMO 10/29: There was no thrombus visualized in the left atrial appendage utili zing multiple views and color flow Doppler. No interatrial shunting by color-richard w or agitated saline contrast. There was rare, late (>5 beats) agitated saline contrast seen in the left atrium which is most suggestive of a pulmonary source of shunting. Qualitatively normal LV size and systolic function, EF ~ 60-65 %. Qualitatively normal RV size and systolic function. Mildly dilated left atrium, normal size right atrium. 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 No evidence of valvular stenosis with thin leaflets with normal leaflet excursion (peak velocity = 2.6 m/s, mean gradient = 13 mmHg, AT =95 ms). There is mild to moderate paravalvular regurgitation at the 12 to 1 o'clock position. No transvalvular regurgitation. There is moderate mitral annular calcification with mild mitral stenosis (mean gradient of 4 mmHg at 63 bpm, MVA = 1.59 cm). There is mild-moderate mitral regurgitation. Mild to moderate tricuspid regurgitation. Moderate layered atheromatous plaque present in the descending aorta. No pericardial effusion. - Mental status continues to wax and wane on 10/31 > Neurology is consulted, appreciate recs. Resume ASA once able. 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 SNF on discharge. PMR rec IPR. > Delirium precautions, limit opiates and anticholinergics as able Mass-like RUL opacity, concern for primary neoplasm Mediastinal and Hilar LAD, concern for metastatic disease Tree-in-bud opacities Nicotine dependence - smokes 1/2 PPD but has 120 pack year history - Patient asymptomatic from an infectious standpoint. He has chronic cough produ ctive of clear sputum that is unchanged. He is not meeting SIRS criteria. Conc erning for underlying malignancy. He has had weight loss that was previously at tributed to his essential tremor and inability to eat but no other constitutiona l symptoms. - 10/26 CT chest with contrast 1. 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 2. Mild c ardiomegaly with interstitial thickening and groundglass opacity throughout both lungs, most likely representing CHF. 3. Moderate mediastinal and bilateral hi lar lymphadenopathy suspicious for metastatic disease. 4. Diffuse nodularity t hroughout both lungs and pleura concerning for metastatic disease. This could al so be infectious. 5. Moderate emphysema and scattered areas of scarring. 6. Trace pleural effusions. 7. Small hypodense right renal lesion is indeterminat e and may be a cyst. Ultrasound characterization is recommended. 8. Marked cor onary artery calcification. - PET Scan 10/30: Limited examination due to diffuse muscular uptake from hyperi nsulinemia and misregistration. Irregular hypermetabolic right upper lobe pulmon giovanna mass most compatible with primary neoplasm. Hypermetabolic mediastinal and b ilateral hilar lymphadenopathy suggestive of jodie metastatic disease. Consider endobronchial ultrasound and biopsy for confirmation. Innumerable tiny pulmonary nodules, opacities, and septal thickening throughout both lungs suggestive of m etastatic disease or possible superimposed infection. See recent CT chest - EBUS on 10/31, Malignant cells from station 11L. -Path pending. Prelim with concern for malignancy - CT Chest w/o 10/31 Slight decrease in size of right upper lobe pulmonary mas s again most suspicious for a primary pulmonary neoplasm. Correlate with patholo gy results. Improved peripheral predominant patchy ground glass opacities, likel y represents improving yet persistent underlying infection. Similar diffuse nodu larity throughout all 5 lobes and pleura, concerning for metastatic disease vers us diffuse infectious process. Similar mediastinal and hilar lymphadenopathy, mo st likely representing jodie metastatic disease or less likely reactive lymph no mu. Right renal lesion of indeterminate density is not well appreciated in the absence IV contrast. Correlation with ultrasound is recommended. > Pulmonary following > Oncology are consulted, appreciate recs - Will plan for medical oncology follow up at [facility]. Will follow up PET , and path results. > No antibiotics indicated at this time; afebrile, no leukocytosis, stable resp status > Continue robitussin PRN, cough drops PRN, > PRN NRT (lozenges) and encouraged smoking cessation Macrocytosis with minimal anemia Thrombocytopenia; improved Lymphopenia - mild anemia but macrocytic. Also with mild thrombocytopenia, lymphopenia. Po ssibly nutritional - Iron studies with mild iron deficiency - B12 and folate replete > Continue to monitor > PO Iron supp started Urinary retention Hematuria - noted on UA - 10/28 possible urinary retention > Bladder scan and prn straight cath > Repeat UA as an outpatient. If hematuria persists, will need urology referral Weight loss - Secondary to essential tremor versus underlying malignancy. > Balancing Machine Set Up Worker consult for nutritional assessment s/p TAVR several years ago Hx of HTN, HLD, PAD - hx of Stenting/balloon angioplasty to RLE. Has chronic claudication symptoms - CT chest with marked coronary calcifications > Continue RETIREMENT SALES CONSULTANT statin. > Change RETIREMENT SALES CONSULTANT metoprolol tartrate 50mg BID to Coreg 12.5mg BID for better BP control. May add amlodipine if BP not well controlled with change. - Has PRN Labetalol and Hydralazine PRN. > Resumed ASA as above. Chronic LBP - hx of multiple steroid injections s/p surgical intervention > Continue scheduled APAP 1000mg TID with LFT monitoring, ibuprofen 600mg Q6H PRN > Continue lidocaine patch to back > Has robaxin, tramadol as well. - daughter states oxycodone has caused confusion in the past - D/c'ed oxycodone (has not used in >24 hours) on 10/29 > Scheduled bowel regimen is ordered, monitor for BM > Can consider interventional anesthesia if he desires intervention, but sounds as if they have not been effective for him in the past > May also consider addition of gabapentin CAD with hx of PCI - Per reports had staged PCI ~ 3 years ago. Was taking full dose ASA multiple ti mes per day for pain, off since Nov due to SDH > Continue BB, statin > Resumed ASA as above Essential Tremor - plan was for focused ultrasound but work up revealed incidental SDH > Defer to outpatient neurosrugery > PT/OT consulted FEN: - No IVFs. - Replace lytes prn. - DIET REGULAR PPx: - LMWH Code: - Full Code . Dispo: - Cont inpatient admission to medicine. Will need facility placement. Jose Manuel Montague MD [employer] [id number] Voalte is the preferred method of communication. Please use the [employer] First Call for all patient-related communications. Pe rsonal Voaltes and pagers are not answered at all hours. I spent 40 minute in patient care. > 50% of the time was spent in evaluating patient and coordinating discharge Subjective Scot Bell is a 82 y.o. male. No acute events overnight. He is alert. He is o riented to person only. Daughter at bedside and reports baseline. No major agita tion reported. 9 pt review of systems done and negative except for what is noted above. Medications Scheduled Meds:acetaminophen (TYLENOL EXTRA STRENGTH) tablet 1,000 mg, 1,000 mg, Oral, Q8H aspirin EC tablet 81 mg, 81 mg, Oral, QDAY atorvastatin (LIPITOR) tablet 80 mg, 80 mg, Oral, QDAY carvediloL (COREG) tablet 12.5 mg, 12.5 mg, Oral, BID docusate (COLACE) capsule 100 mg, 100 mg, Oral, BID enoxaparin (LOVENOX) syringe 40 mg, 40 mg, Subcutaneous, QDAY(21) ferrous gluconate tablet 324 mg, 324 mg, Oral, Q48H* fluticasone propionate (FLONASE) nasal spray 2 spray, 2 spray, Each Nostril, QDA Y lidocaine (LIDODERM) 5 % topical patch 1 patch, 1 patch, Topical, QDAY methocarbamoL (ROBAXIN) tablet 500 mg, 500 mg, Oral, BID milk of magnesia (CONC) oral suspension 10 mL, 10 mL, Oral, QDAY polyethylene glycol 3350 (MIRALAX) packet 17 g, 1 packet, Oral, QDAY senna/docusate (SENOKOT-S) tablet 1 tablet, 1 tablet, Oral, BID Continuous Infusions: lactated ringers infusion 1,000 mL (10/31/22 1500) PRN and Respiratory Meds:dextromethorphan/guaiFENesin (ROBITUSSIN-DM) oral syru p Q6H PRN, eucalyptus-menthoL Q2H PRN, hydrALAZINE Q8H PRN, ibuprofen Q6H PRN, l abetalol (NORMODYNE; TRANDATE) injection Q15 MIN PRN, nicotine (polacrilex) Q1H PRN, ondansetron (ZOFRAN) IV Q6H PRN, sodium chloride PRN, traMADoL Q6H PRN Objective: Vital Signs: Last Filed Vital Signs: 24 [place] Range BP: 116/55 (11/02 1142) Temp: 36.6 C (97.8 F) (11/02 114) Pulse: 59 (11/02 1142) Respirations: 16 PER MINUTE (11/02 114) SpO2: 97 % (11/02 1142) O2 Device: None (Room air) (11/02 1142) BP: (89-188)/(33-67) Temp: [36.5 C (97.7 F)-37.1 C (98.7 F)] Pulse: [52-101] Respirations: [16 PER MINUTE] SpO2: [92 %-98 %] O2 Device: None (Room air) Intensity Pain Scale (Self Report): 7 (11/01/22 1345) Vitals: 10/25/22 0902 Weight: 58.5 kg (129 lb) Intake/Output Summary: (Last 24 hours) Intake/Output Summary (Last 24 hours) at 11/02/2022 1155 Last data filed at 11/02/2022 0524 Gross per 24 hour Intake 625 ml Output 75 ml Net 550 ml Stool Occurrence: 1 Physical Exam General: Alert, thin elderly male appears stated age, in NAD Head: Normocephalic, atraumatic Eyes: Normal conjunctiva, non-icteric sclera Neck: Trachea midline, no stridor Lungs: Clear to auscultation bilaterally, non-labored on RA Heart: Regular rate and rhythm, 2/6 ejection systolic murmur noted at the apex Ext: no peripheral edema. Abdomen: Soft, non-tender. Bowel sounds + Skin: Warm and dry Neurologic: A&O to person, and location given multiple choice options, nonfocal. Prominent word finding difficulty, though was able to name some simple objects like shoes and pen. Following commands. Tremor worsened by action. Able to answer most questions appropriately. Exam unchanged from above Lab Review Pertinent labs reviewed. Point of Care Testing (Last 24 hours) Glucose: 93 (11/02/22 0404) Radiology and other Diagnostics Review: Pertinent radiology reviewed. RIBUTOR OPERATOR * Ramona Coates, PT - 11/01/2022 2:46 PM CST PHYSICAL THERAPY PROGRESS NOTE Name: Scot Bell : 1940 Age: 82 y.o. Admission Date: 10/24/2022 LOS: 7 days Date of Service: 11/01/2022 Mobility Patient Turn/Position: Weight shifted (Bed) Progressive Mobility Level: Walk in room Distance Walked (feet): 25 ft Level of Assistance: Assist X1 Assistive Device: Hand Held Activity Limited By: Lethargy;Mental Status Variability;Weakness Subjective Significant hospital events: 82 y.o. 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 The patient has baseline mixed tremor symptoms in the BUE. He is otherwise neurologically in tact. CT Head from OSH was reviewed which demonstrated acute on chronic R convexity SDH with 4-5 mm midline shift. S/p MMA Embo 10/28 Mental / Cognitive Status: Arousable;Lethargic;Cooperative;Follows Commands Persons Present: Daughter Pain: Patient has no complaint of pain Pain Interventions: Patient agrees to participate in therapy Ambulation Assist: Independent Mobility in Community without Device Patient Owned Equipment: Roller Walker;Manual Wheelchair;Single Point Cane Home Situation: Lives with Family (2 sons) Type of Home: House Entry Stairs: 1-2 Stairs;Rail on 1 Side (2) In-Home Stairs: Able to Live on One Level Comments: Patient reports that he was independent with mobility and most ADL, bu t has difficulty with feeding himself due to tremor Bed Mobility/Transfer Bed Mobility: Supine to Sit: Minimal Assist Bed Mobility: Sit to Supine: Moderate Assist Comments: Pt unable to sequence sit>supine, kept trying to keep performing STS. Ultimately required assist to lower onto elbow, and to lift BLEs. TotalA boost up in bed. Transfer Type: Sit to/from Stand Transfer: Assistance Level: To/From;Bed;Minimal Assist Transfer: Assistive Device: Hand Hold Assist Transfers: Type Of Assistance: For Strength Deficit;For Balance Other Transfer Type: Sit to/from Stand Other Transfer: Assistance Level: To/From;Toilet;Moderate Assist Other Transfer: Assistive Device: (grab bars) End Of Activity Status: In Bed;Nursing Notified;Instructed Patient to Request As sist with Mobility;Instructed Patient to Use Call Light (bed alarm acitvated) Gait Gait Distance: 25 feet Gait: Assistance Level: Minimal Assist Gait: Assistive Device: Hand Hold Assist Gait: Descriptors: Pace: Slow;Loss of balance;Decreased step length Education Persons Educated: Patient Patient Barriers To Learning: Decreased Alertness Interventions: Repetition of Instructions;Family Education Teaching Methods: Verbal Instruction Patient Response: Verbalized Understanding;More Instruction Required Topics: Plan/Goals of PT Interventions;Use of Assistive Device/Orthosis;Mobility Progression;Safety Awareness;Up with Assist Only;Importance of Increasing Activ ity;Recommend Continued Therapy Assessment/Progress Impaired Mobility Due To: Decreased Strength;Pain;Impaired Balance;Decreased Act ivity Tolerance;Medical Status Limitation Assessment/Progress: Should Improve w/ Continued PT Comments: Patient somewhat limited by drowsiness this date. Daughter states he h as been sleepy since his bronch yesterday. Able to arouse and simple communicati on, but not alert. Deferred farther hallway ambulation d/t decreased alertness. AM-PAC 6 Clicks Basic Mobility Inpatient Turning from your back to your side while in a flat bed without using bed rails: A Little Moving from lying on your back to sitting on the side of a flat bed without usin g bedrails : A Little Moving to and from a bed to a chair (including a wheelchair): A Little Standing up from a chair using your arms (e.g. wheelchair, or bedside chair): A Little To walk in hospital room: A Lot Climbing 3-5 steps with a railing: Total Basic Mobility Inpatient Raw Score: 15 Standardized (T-scale) Score: 36.97 Goals Goal Formulation: With Patient Time For Goal Achievement: 5 days, To, 7 days Patient Will Go Supine To/From Sit: Independently Patient Will Transfer Sit to Stand: Independently Patient Will Ambulate: Greater than 200 Feet, w/ No Device, w/ Stand By Assist Patient Will Go Up / Down Stairs: 1-2 Stairs, w/ Stand By Assist Plan Treatment Interventions: Mobility Training;Strengthening;Balance Activities;Endu marin Training;Neuromuscular Reeducation Plan Frequency: 5 Days per Week PT Plan for Next Visit: Work on safety and independence with transfers. Increase ambulation distance. PT Discharge Recommendations Recommendation: Inpatient setting;Recommend rehab medicine consult Patient Currently Requires Physical Assist With: All mobility Therapist: Ramona Coates, PT Date: 11/01/2022 RIBUTOR OPERATOR * Shauna Sun, OT - 11/01/2022 11:01 AM CST OCCUPATIONAL THERAPY PROGRESS NOTE Name: Scot Bell : 1940 Age: 82 y.o. Admission Date: 10/24/2022 LOS: 7 days Date of Service: 11/01/2022 Mobility Patient Turn/Position: Chair Progressive Mobility Level: Walk in room Distance Walked (feet): 20 ft Level of Assistance: Assist X1 Assistive Device: Hand Held Activity Limited By: Mental Status Variability;Weakness Subjective Pertinent Dx per Physician: Scot Bell is a 82 y.o. 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 Precautions: Standard;Falls Pain / Complaints: Patient agrees to participate in therapy;Patient has no c/o p ain Comments: Upon arrival, patient in bed and daughter assisting with feeding break fast. After session, patient in chair, alarm on, and all needs in reach. RN herbie owusu. Objective Psychosocial Status: Willing and Cooperative to Participate Persons Present: Daughter Home Living Type of Home: House Home Layout: One Level;Stairs to Enter w/o Rails Bathroom Shower / Tub: Tub/Shower Unit Bathroom Toilet: Standard Bathroom Equipment: Shower Chair Home Equipment: Cane;Walker;Wheelchair-manual Comment: 2 steps to enter Prior Function Level Of [place]: Independent with ADLs and functional transfers;Needed ass istance with homemaking Lives With: Family (two sons) Receives Help From: Family Other Function Comments: Per patient, he was ambulating independently and able t o manage ADLs. Sons help with IADLs. Patient has had tremors so typically eats f jabier food. He has tried adaptive utensils but reported they have not worked for him Vision Current Vision: Wears Glasses Only for Reading Ocular Range Of Motion: Restricted on the Left;Restricted Looking Up;Restricted Looking Down Tracking: Dec Smoothness of Horizontal Tracking;Dec Smoothness of Vertical Track ing Visual Concepcion: Difficulty Detecting Stimulus in Left Upper Quadrant;Difficulty D etecting Stimulus in Left Lateral Quadrant;Difficulty Detecting Stimulus in Left Lower Quadrant Comment: patient with poor scanning and ocular ROM, needing maximal cues for hea d turns. Only able to see directly in midline/in front of him, appears to have f ield cut in both right and left peripheral ADL's Where Assessed: Standing at Sink;In Bathroom Grooming Assist: Moderate Assist Grooming Deficits: Wash/Dry Hands Toileting Assist: Minimal Assist Toileting Deficits: Steadying Comment: Steadying assist for toileing; requires maximal verbal cues and hand ov er hand assist to locate soap and paper towels. ADL Mobility Bed Mobility: Supine to Sit: Minimal assist Transfer Type: Sit to stand Transfer: Assistance Level: Minimal assist;From;Bed Transfer: Assistive Device: Hand hold assist Transfer: Type of Assistance: For balance;For safety considerations End of Activity Status: Up in chair;Nursing notified;Instructed patient to use c all light;Instructed patient to request assist with mobility Sitting Balance: Standby assist Standing Balance: Minimal assist;No UE support;Static standing balance Gait Distance: 20 feet Gait: Assistance Level: Minimal assist Gait: Assistive Device: Hand hold assist Gait Comments: Patient ambulates in room with minimal assist x1 hand hold, one l oss of balance requiring moderate assist to correct. Requires cues to take large r steps; requires increased education. Tremors in UEs only, stable BLEs. Activity Tolerance Endurance: 3/5 Tolerates 25-30 Minutes Exercise w/Multiple Rests Cognition Overall Cognitive Status: Impaired Cognition Comment: Daughter reports patient just waking up this morning, thinks due to lingering anesthesia from yesterday evening procedure. Able to state name with increased time, difficulty with . UE PROM R UE ROM: WFL L UE ROM: WFL ROM Comments: moderate tremors BUEs Assessment Assessment: Decreased ADL Status;Decreased UE ROM;Decreased UE Strength;Decrease d Safe/Judg during ADL;Decreased Cognition;Decreased Endurance;Visual Deficit;De creased Fine Motor Coordination;Decreased Self-Care Trans Prognosis: w/Cont OT s/p Acute Discharge Comments: Patient presents with impaired balance, decreased motor planning, sign ificant visual deficits, cognitive deficits, and hands on assist impacting indep endence with ADLs and mobility. Will benefit from therapeutic intervention. AM-PAC 6 Clicks Daily Activity Inpatient Putting on and taking off regular lower body clothes: A Lot Bathing (Including washing, rinsing, drying): A Lot Toileting, which includes using toilet, bedpan, or urinal: A Lot Putting on and taking off regular upper body clothing: A Lot Taking care of personal grooming such as brushing teeth: A Little Eating meals: A Little Daily Activity Raw Score: 14 Standardized (T-scale) Score: 33.39 Plan OT Frequency: 5x/week OT Plan for Next Visit: L and R sided attention, visual scanning, grooming stand ing, functional mobility ADL Goals Patient Will Perform All ADL's: w/ Minimal Assist Functional Transfer Goals Pt Will Perform All Functional Transfers: Minimum Assist Vision Goals Pt Will Scan Environment: 100% of the time, w/ Minimal Cues OT Discharge Recommendations Recommendation: Inpatient setting Patient Currently Requires Physical Assist With: All mobility;All personal care ADLs;All home functioning ADLs Therapist: DEBRA Hoffmann/[place] [id number] Date: 11/01/2022 RIBUTOR OPERATOR * Ramona Urbina SRNA - 11/01/2022 8:50 AM CST Anesthesia Follow-Up Evaluation: Post-Procedure Day One Name: Scot Bell : 1940 Age: 82 y.o. Sex: male Procedure Date: 10/31/2022 Procedure: Procedure(s) with comments: ROBOT ASSISTED BRONCHOSCOPY WITH IMAGE-GUIDED NAVIGATION- FLEXIBLE - 2 HRS Physical Assessment Height: 170.2 cm (5' 7") Weight: 58.5 kg (129 lb) Vital Signs (Last Filed in 24 hours) BP: 139/52 (11/01 0750) Temp: 36.6 C (97.8 F) (11/01 0750) Pulse: 58 (11/01 0750) Respirations: 16 PER MINUTE (11/01 0750) SpO2: 96 % (11/01 0750) O2 Device: Nasal cannula (11/01 0750) O2 Liter Flow: 2 Lpm (11/01 0750) SpO2 Pulse: 55 (10/31 1730) Patient History Allergies No Known Allergies Medications Scheduled Meds:acetaminophen (TYLENOL EXTRA STRENGTH) tablet 1,000 mg, 1,000 mg, Oral, Q8H aspirin EC tablet 81 mg, 81 mg, Oral, QDAY atorvastatin (LIPITOR) tablet 80 mg, 80 mg, Oral, QDAY carvediloL (COREG) tablet 12.5 mg, 12.5 mg, Oral, BID docusate (COLACE) capsule 100 mg, 100 mg, Oral, BID enoxaparin (LOVENOX) syringe 40 mg, 40 mg, Subcutaneous, QDAY(21) ferrous gluconate tablet 324 mg, 324 mg, Oral, Q48H* fluticasone propionate (FLONASE) nasal spray 2 spray, 2 spray, Each Nostril, QDA Y lidocaine (LIDODERM) 5 % topical patch 1 patch, 1 patch, Topical, QDAY methocarbamoL (ROBAXIN) tablet 500 mg, 500 mg, Oral, BID milk of magnesia (CONC) oral suspension 10 mL, 10 mL, Oral, QDAY polyethylene glycol 3350 (MIRALAX) packet 17 g, 1 packet, Oral, QDAY senna/docusate (SENOKOT-S) tablet 1 tablet, 1 tablet, Oral, BID Continuous Infusions: lactated ringers infusion 1,000 mL (10/31/22 1500) PRN and Respiratory Meds:dextromethorphan/guaiFENesin (ROBITUSSIN-DM) oral syru p Q6H PRN, eucalyptus-menthoL Q2H PRN, hydrALAZINE Q8H PRN, ibuprofen Q6H PRN, l abetalol (NORMODYNE; TRANDATE) injection Q15 MIN PRN, nicotine (polacrilex) Q1H PRN, ondansetron (ZOFRAN) IV Q6H PRN, sodium chloride PRN, traMADoL Q6H PRN Diagnostic Tests Hematology: Lab Results Component Value Date HGB 11.8 11/01/2022 HCT 34.8 11/01/2022 PLTCT 165 11/01/2022 WBC 6.1 11/01/2022 NEUT 74 11/01/2022 ANC 4.50 11/01/2022 ALC 0.53 11/01/2022 MAGNUS 16 11/01/2022 AMC 1.00 11/01/2022 EOSA 1 11/01/2022 ABC 0.02 11/01/2022 MCV 99.2 11/01/2022 MCH 33.5 11/01/2022 MCHC 33.8 11/01/2022 MPV 8.8 11/01/2022 RDW 14.0 11/01/2022 General Chemistry: Lab Results Component Value Date NA 145 11/01/2022 K 3.6 11/01/2022 CL 109 11/01/2022 CO2 24 11/01/2022 GAP 12 11/01/2022 BUN 28 11/01/2022 CR 1.01 11/01/2022 GLU 89 11/01/2022 CA 8.7 11/01/2022 ALBUMIN 3.3 11/01/2022 MG 2.2 10/24/2022 TOTBILI 0.5 11/01/2022 Coagulation: Lab Results Component Value Date PT 13.5 10/24/2022 INR 1.2 10/24/2022 Follow-Up Assessment Patient location during evaluation: floor Anesthetic Complications: Anesthetic complications: The patient did not experience any anesthestic complic ations. Pain: Score: 0 Management:adequate Level of Consciousness: awake and alert and responsive to light touch Hydration:acceptable Airway Patency: patent Respiratory Status: acceptable and room air Cardiovascular Status:acceptable and hemodynamically stable Regional/Neuroaxial: Comments: Patient resting comfortably, awakened with touch but sleepy. Daughter states tolerating PO intake, no PONV or pain. No other anesthetic issued noted. RIBUTOR OPERATOR * Sahil Mejia MD - 11/01/2022 7:39 AM CST General Progress Note Name: Scot Bell Today's Date: 11/01/2022 Admission Date: 10/24/2022 LOS: 7 days Assessment/Plan: Principal Problem: SDH (subdural hematoma) Active Problems: Essential tremor PAD (peripheral artery disease) (HCC) Delirium Thrombocytopenia (HCC) Primary hypertension Coronary artery disease involving [place] coronary artery of [place] heart witho ut angina pectoris Chronic low back pain Assessment/Plan: Scot Bell is a 82 y.o. 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 Medicine consulted for management of multiple co-morbidities as well as work up of new possible lung mass Acute on chronic R subdural hemorrhage - found incidentally during outpatient evaluation for Focused US for essential t remor. Repeat CT at admission with concern for interval bleed, mixed blood produ cts on scan - S/p IR R MMA embolization on 10/28 due to anticipated need for AC > Resumed ASA and dvt ppx on 11/01 > Neurosurgery rec to keep SBP <160, per Neurosurgery's note from 10/28, they are ok with antiplatelet therapy and AC once procedures are completed. 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 US showed Atherosclerotic disease resulting in a severe, likely near occlusive luminal stenosis of the left cervi milagro vertebral origin. - stroke work up initiated by neurology - defer need for vascular intervention to neuro/neurosurgery - patient stroke actived on 10/27 for increased confusion NIHSS 6 (mainly for ac [place] confusion; inability to answer orientation questions, follow commands, unabl e to comprehend; answer appropriately, inconsistent response to visual threat. A t baseline patient has LUQ visual field deficit)-- suspect stroke mimic - 65 minute EEG abnormal >1 hour EEG is indicative of a mild to moderate encephalopathy. No epileptiform signs are seen. - ANSELMO 10/29: There was no thrombus visualized in the left atrial appendage utili zing multiple views and color flow Doppler. No interatrial shunting by color-richard w or agitated saline contrast. There was rare, late (>5 beats) agitated saline contrast seen in the left atrium which is most suggestive of a pulmonary source of shunting. Qualitatively normal LV size and systolic function, EF ~ 60-65 %. Qualitatively normal RV size and systolic function. Mildly dilated left atrium, normal size right atrium. 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 No evidence of valvular stenosis with thin leaflets with normal leaflet excursion (peak velocity = 2.6 m/s, mean gradient = 13 mmHg, AT =95 ms). There is mild to moderate paravalvular regurgitation at the 12 to 1 o'clock position. No transvalvular regurgitation. There is moderate mitral annular calcification with mild mitral stenosis (mean gradient of 4 mmHg at 63 bpm, MVA = 1.59 cm). There is mild-moderate mitral regurgitation. Mild to moderate tricuspid regurgitation. Moderate layered atheromatous plaque present in the descending aorta. No pericardial effusion. - Mental status continues to wax and wane on 10/31 > Neurology is consulted, appreciate recs. Resume ASA once able. 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 SNF on discharge. PMR rec IPR. > Delirium precautions, limit opiates and anticholinergics as able Mass-like RUL opacity, concern for primary neoplasm Mediastinal and Hilar LAD, concern for metastatic disease Tree-in-bud opacities Nicotine dependence - smokes 1/2 PPD but has 120 pack year history - Patient asymptomatic from an infectious standpoint. He has chronic cough produ ctive of clear sputum that is unchanged. He is not meeting SIRS criteria. Conc erning for underlying malignancy. He has had weight loss that was previously at tributed to his essential tremor and inability to eat but no other constitutiona l symptoms. - 10/26 CT chest with contrast 1. 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 2. Mild c ardiomegaly with interstitial thickening and groundglass opacity throughout both lungs, most likely representing CHF. 3. Moderate mediastinal and bilateral hi lar lymphadenopathy suspicious for metastatic disease. 4. Diffuse nodularity t hroughout both lungs and pleura concerning for metastatic disease. This could al so be infectious. 5. Moderate emphysema and scattered areas of scarring. 6. Trace pleural effusions. 7. Small hypodense right renal lesion is indeterminat e and may be a cyst. Ultrasound characterization is recommended. 8. Marked cor onary artery calcification. - PET Scan 10/30: Limited examination due to diffuse muscular uptake from hyperi nsulinemia and misregistration. Irregular hypermetabolic right upper lobe pulmon giovanna mass most compatible with primary neoplasm. Hypermetabolic mediastinal and b ilateral hilar lymphadenopathy suggestive of jodie metastatic disease. Consider endobronchial ultrasound and biopsy for confirmation. Innumerable tiny pulmonary nodules, opacities, and septal thickening throughout both lungs suggestive of m etastatic disease or possible superimposed infection. See recent CT chest - EBUS on 10/31, Malignant cells from station 11L. -Path pending - CT Chest w/o 10/31 Slight decrease in size of right upper lobe pulmonary mas s again most suspicious for a primary pulmonary neoplasm. Correlate with patholo gy results. Improved peripheral predominant patchy ground glass opacities, likel y represents improving yet persistent underlying infection. Similar diffuse nodu larity throughout all 5 lobes and pleura, concerning for metastatic disease vers us diffuse infectious process. Similar mediastinal and hilar lymphadenopathy, mo st likely representing jodie metastatic disease or less likely reactive lymph no mu. Right renal lesion of indeterminate density is not well appreciated in the absence IV contrast. Correlation with ultrasound is recommended. > Pulmonary following > Oncology are consulted, appreciate recs - Will plan for medical oncology follow up at [facility]. Will follow up PET , and path results. > No antibiotics indicated at this time; afebrile, no leukocytosis, stable resp status > Continue robitussin PRN, cough drops PRN, > PRN NRT (lozenges) and encouraged smoking cessation Macrocytosis with minimal anemia Thrombocytopenia; improved Lymphopenia - mild anemia but macrocytic. Also with mild thrombocytopenia, lymphopenia. Po ssibly nutritional - Iron studies with mild iron deficiency - B12 and folate replete > Continue to monitor > PO Iron supp started Urinary retention Hematuria - noted on UA - 10/28 possible urinary retention > Bladder scan to assess for urinary retention > Repeat UA as an outpatient. If hematuria persists, will need urology referral Weight loss - Secondary to essential tremor versus underlying malignancy. > Balancing Machine Set Up Worker consult for nutritional assessment s/p TAVR several years ago Hx of HTN, HLD, PAD - hx of Stenting/balloon angioplasty to RLE. Has chronic claudication symptoms - CT chest with marked coronary calcifications > Continue RETIREMENT SALES CONSULTANT statin. > Change RETIREMENT SALES CONSULTANT metoprolol tartrate 50mg BID to Coreg 12.5mg BID for better BP control. May add amlodipine if BP not well controlled with change. - Has PRN Labetalol and Hydralazine PRN. > Resumed ASA as above. Chronic LBP - hx of multiple steroid injections s/p surgical intervention > Continue scheduled APAP 1000mg TID with LFT monitoring, ibuprofen 600mg Q6H PRN > Continue lidocaine patch to back > Has robaxin, tramadol as well. - daughter states oxycodone has caused confusion in the past - D/c'ed oxycodone (has not used in >24 hours) on 10/29 > Scheduled bowel regimen is ordered, monitor for BM > Can consider interventional anesthesia if he desires intervention, but sounds as if they have not been effective for him in the past > May also consider addition of gabapentin CAD with hx of PCI - Per reports had staged PCI ~ 3 years ago. Was taking full dose ASA multiple ti mes per day for pain, off since Nov due to SDH > Continue BB, statin > Resumed ASA as above Essential Tremor - plan was for focused ultrasound but work up revealed incidental SDH > Defer to outpatient neurosrugery > PT/OT consulted FEN: - No IVFs. - Replace lytes prn. - DIET REGULAR PPx: - LMWH Code: - Full Code . Dispo: - Cont inpatient admission to medicine. Will need facility placement. Plan was discussed in length with the patient and his family. All questions were answered to their best satisfaction. Sahil Mejia MD Hospitalist [employer] [id number] Voalte is the preferred method of communication. Please use the [employer] First Call for all patient-related communications. Pe rsonal Voaltes and pagers are not answered at all hours. I spent a total of more than 35 minutes directly involved in pt care today with more than half of the time spent counseling and evaluating pt [id number], and on the unit/floor coordinating care (coordinating with RN, SW/CM, PT/OT, RT), a nd reviewing chart, labs/radiology, and office 365 consultant recommendations, and discussi ng with pulmonary. Subjective Scot Bell is a 82 y.o. male. Chart reviewed. Patient was seen and examined. No acute events overnight. Underwent bronchoscopy yesterday afternoon. Somewha t somnolent this morning but mental status remains at baseline. He also had tro uble sleeping overnight and was given a small dose of trazodone. Denies any acu te change in symptoms today. Discussed with his daughter at the bedside that we are still awaiting facility placement. Does not need to remain inpatient while awaiting pathology results. He will follow-up with the oncology clinic as an o utpatient. Review of Systems: No CP, SOA, cough, hemoptysis, abd pain, N/V, dysuria, hematu iain, fevers, chills or night sweats Medications Scheduled Meds:acetaminophen (TYLENOL EXTRA STRENGTH) tablet 1,000 mg, 1,000 mg, Oral, Q8H atorvastatin (LIPITOR) tablet 80 mg, 80 mg, Oral, QDAY carvediloL (COREG) tablet 12.5 mg, 12.5 mg, Oral, BID docusate (COLACE) capsule 100 mg, 100 mg, Oral, BID ferrous gluconate tablet 324 mg, 324 mg, Oral, Q48H* fluticasone propionate (FLONASE) nasal spray 2 spray, 2 spray, Each Nostril, QDA Y lidocaine (LIDODERM) 5 % topical patch 1 patch, 1 patch, Topical, QDAY methocarbamoL (ROBAXIN) tablet 500 mg, 500 mg, Oral, BID milk of magnesia (CONC) oral suspension 10 mL, 10 mL, Oral, QDAY polyethylene glycol 3350 (MIRALAX) packet 17 g, 1 packet, Oral, QDAY senna/docusate (SENOKOT-S) tablet 1 tablet, 1 tablet, Oral, BID Continuous Infusions: lactated ringers infusion 1,000 mL (10/31/22 1500) PRN and Respiratory Meds:dextromethorphan/guaiFENesin (ROBITUSSIN-DM) oral syru p Q6H PRN, eucalyptus-menthoL Q2H PRN, hydrALAZINE Q8H PRN, labetalol (NORMODYNE ; TRANDATE) injection Q15 MIN PRN, nicotine (polacrilex) Q1H PRN, ondansetron (Z OFRAN) IV Q6H PRN, sodium chloride PRN, traMADoL Q6H PRN Objective: Vital Signs: Last Filed Vital Signs: 24 [place] Range BP: 134/89 (10/31 2306) Temp: 36.8 C (98.2 F) (10/31 2306) Pulse: 60 (10/31 2306) Respirations: 17 PER MINUTE (10/31 2306) SpO2: 96 % (10/31 2306) O2 Device: Nasal cannula (10/31 2306) O2 Liter Flow: 2 Lpm (10/31 2306) SpO2 Pulse: 55 (10/31 1730) BP: (90-154)/(50-110) Temp: [36.4 C (97.5 F)-37.1 C (98.7 F)] Pulse: [55-62] Respirations: [12 PER MINUTE-22 PER MINUTE] SpO2: [94 %-100 %] O2 Device: Nasal cannula O2 Liter Flow: 2 Lpm Vitals: 10/25/22 0902 Weight: 58.5 kg (129 lb) Intake/Output Summary: (Last 24 hours) Intake/Output Summary (Last 24 hours) at 11/01/2022 0739 Last data filed at 10/31/20222101 Gross per 24 hour Intake 275 ml Output 375 ml Net -100 ml Stool Occurrence: 0 Physical Exam General: Alert, thin elderly male appears stated age, in NAD Head: Normocephalic, atraumatic Eyes: Normal conjunctiva, non-icteric sclera Neck: Trachea midline, no stridor Lungs: Clear to auscultation bilaterally, non-labored on RA Heart: Regular rate and rhythm, 2/6 ejection systolic murmur noted at the apex Ext: no peripheral edema. Abdomen: Soft, non-tender. Bowel sounds + Skin: Warm and dry Neurologic: A&O to person, and location given multiple choice options, nonfocal. Prominent word finding difficulty, though was able to name some simple objects like shoes and pen. Following commands. Tremor worsened by action. Able to answer most questions appropriately. Lab Review Pertinent labs reviewed. Point of Care Testing (Last 24 hours) Glucose: 89 (11/01/22 0402) Radiology and other Diagnostics Review: Pertinent radiology reviewed. RIBUTOR OPERATOR * Symone Shah OT - 10/31/2022 1:03 PM CST OCCUPATIONAL THERAPY PROGRESS NOTE Name: Scot Bell : 1940 Age: 82 y.o. Admission Date: 10/24/2022 LOS: 6 days Date of Service: 10/31/2022 OT completed ADL task of hair care with max A d/t tremor and AMS. OT facilitated completion donning/doffing socks with max verbal cues and mod A for completion. Daughter was present throughout session. The OT educated pt and his daughter on compensatory methods to complete ADLs when tremor increase with difficulty level of ADLs. Pt session ended due to surgery soon after end of session. Balancing Machine Set Up Worker came in upon arrival. OT/PT to continue therapy with pt at time to strengthen UE and independence with ADLs, and build endurance. Therapist: PRASHANTH Ramirez, OTR/L Date: 10/31/2022 RIBUTOR OPERATOR * Ramona Coates, PT - 10/31/2022 10:20 AM CST PHYSICAL THERAPY PROGRESS NOTE Name: Scot Bell : 1940 Age: 82 y.o. Admission Date: 10/24/2022 LOS: 6 days Date of Service: 10/31/2022 Mobility Patient Turn/Position: Weight shifted (Chair) Progressive Mobility Level: Walk in hallway Distance Walked (feet): 75 ft (x2) Level of Assistance: Assist X1 Assistive Device: Hand Held Activity Limited By: Weakness;Fatigue Subjective Significant hospital events: 82 y.o. 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 The patient has baseline mixed tremor symptoms in the BUE. He is otherwise neurologically in tact. CT Head from OSH was reviewed which demonstrated acute on chronic R convexity SDH with 4-5 mm midline shift. S/p MMA Embo 10/28 Mental / Cognitive Status: Alert;Oriented;To Person;Cooperative;Follows Commands Persons Present: Daughter Pain: Patient has no complaint of pain Pain Interventions: Patient agrees to participate in therapy Comments: L visual field cut Ambulation Assist: Independent Mobility in Community without Device Patient Owned Equipment: Roller Walker;Manual Wheelchair;Single Point Cane Home Situation: Lives with Family (2 sons) Type of Home: House Entry Stairs: 1-2 Stairs;Rail on 1 Side (2) In-Home Stairs: Able to Live on One Level Comments: Patient reports that he was independent with mobility and most ADL, bu t has difficulty with feeding himself due to tremor Bed Mobility/Transfer Transfer Type: Sit to/from Stand Transfer: Assistance Level: To/From;Bed Side Chair;Minimal Assist Transfer: Assistive Device: Hand Hold Assist Transfers: Type Of Assistance: For Balance;For Strength Deficit End Of Activity Status: Up in Chair;Nursing Notified;Instructed Patient to Reque st Assist with Mobility;Instructed Patient to Use Call Light (TABS alrm activate d) Comments: Prior to gait activity, pt performed 5 sit to stand reps from chair. C ues for hand placement. Extra assist needed during stand>sit transition, poor eccentric control. Gait Gait Distance: 75 feet (x2) Gait: Assistance Level: Moderate Assist Gait: Assistive Device: Hand Hold Assist Gait: Descriptors: Pace: Slow;Decreased step length Comments: Pt required ModA for first 75', rested in chair for 2-3 minutes. For g ait back to room, pt with improved balance, requiring close to Charity and taking l onger steps. Education Persons Educated: Patient Patient Barriers To Learning: Decreased Hearing Interventions: Repetition of Instructions;Louder Voice Required Teaching Methods: Verbal Instruction Patient Response: Verbalized Understanding;More Instruction Required Topics: Plan/Goals of PT Interventions;Use of Assistive Device/Orthosis;Mobility Progression;Safety Awareness;Up with Assist Only;Importance of Increasing Activ ity;Recommend Continued Therapy Assessment/Progress Impaired Mobility Due To: Decreased Strength;Pain;Impaired Balance;Decreased Act ivity Tolerance;Medical Status Limitation Assessment/Progress: Should Improve w/ Continued PT AM-PAC 6 Clicks Basic Mobility Inpatient Turning from your back to your side while in a flat bed without using bed rails: A Little Moving from lying on your back to sitting on the side of a flat bed without usin g bedrails : A Little Moving to and from a bed to a chair (including a wheelchair): A Little Standing up from a chair using your arms (e.g. wheelchair, or bedside chair): A Little To walk in hospital room: A Lot Climbing 3-5 steps with a railing: Total Basic Mobility Inpatient Raw Score: 15 Standardized (T-scale) Score: 36.97 Goals Goal Formulation: With Patient Time For Goal Achievement: 5 days, To, 7 days Patient Will Go Supine To/From Sit: Independently Patient Will Transfer Sit to Stand: Independently Patient Will Ambulate: Greater than 200 Feet, w/ No Device, w/ Stand By Assist Patient Will Go Up / Down Stairs: 1-2 Stairs, w/ Stand By Assist Plan Treatment Interventions: Mobility Training;Strengthening;Balance Activities;Endu marin Training;Neuromuscular Reeducation Plan Frequency: 5 Days per Week PT Plan for Next Visit: Work on safety and independence with transfers. Increase ambulation distance. PT Discharge Recommendations Recommendation: Inpatient setting;Recommend rehab medicine consult Patient Currently Requires Physical Assist With: All mobility Therapist: Ramona Coates, PT Date: 10/31/2022 RIBUTOR OPERATOR * Sahil Mejia MD - 10/31/2022 7:52 AM CST General Progress Note Name: Scot Bell Today's Date: 10/31/2022 Admission Date: 10/24/2022 LOS: 6 days Assessment/Plan: Principal Problem: SDH (subdural hematoma) Active Problems: Essential tremor PAD (peripheral artery disease) (HCC) Delirium Thrombocytopenia (HCC) Primary hypertension Coronary artery disease involving [place] coronary artery of [place] heart witho ut angina pectoris Chronic low back pain Assessment/Plan: Scot Bell is a 82 y.o. 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 Medicine consulted for management of multiple co-morbidities as well as work up of new possible lung mass Acute on chronic R subdural hemorrhage - found incidentally during outpatient evaluation for Focused US for essential t remor. Repeat CT at admission with concern for interval bleed, mixed blood produ cts on scan - S/p IR R MMA embolization on 10/28 due to anticipated need for AC > Hold AC for now with planned procedures. Will address antiplatelet therapy and DVT ppx once all procedures are complete. 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 US showed Atherosclerotic disease resulting in a severe, likely near occlusive luminal stenosis of the left cervi milagro vertebral origin. - stroke work up initiated by neurology - defer need for vascular intervention to neuro/neurosurgery - patient stroke actived on 10/27 for increased confusion NIHSS 6 (mainly for ac [place] confusion; inability to answer orientation questions, follow commands, unabl e to comprehend; answer appropriately, inconsistent response to visual threat. A t baseline patient has LUQ visual field deficit)-- suspect stroke mimic - 65 minute EEG abnormal >1 hour EEG is indicative of a mild to moderate encephalopathy. No epileptiform signs are seen. - ANSELMO 10/29: There was no thrombus visualized in the left atrial appendage utili zing multiple views and color flow Doppler. No interatrial shunting by color-richard w or agitated saline contrast. There was rare, late (>5 beats) agitated saline contrast seen in the left atrium which is most suggestive of a pulmonary source of shunting. Qualitatively normal LV size and systolic function, EF ~ 60-65 %. Qualitatively normal RV size and systolic function. Mildly dilated left atrium, normal size right atrium. 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 No evidence of valvular stenosis with thin leaflets with normal leaflet excursion (peak velocity = 2.6 m/s, mean gradient = 13 mmHg, AT =95 ms). There is mild to moderate paravalvular regurgitation at the 12 to 1 o'clock position. No transvalvular regurgitation. There is moderate mitral annular calcification with mild mitral stenosis (mean gradient of 4 mmHg at 63 bpm, MVA = 1.59 cm). There is mild-moderate mitral regurgitation. Mild to moderate tricuspid regurgitation. Moderate layered atheromatous plaque present in the descending aorta. No pericardial effusion. - Mental status continues to wax and wane on 10/31 > Neurology is consulted, appreciate recs. Resume ASA once able. > Cont RETIREMENT SALES CONSULTANT statin > Will address antiplatelet therapy and DVT ppx once all procedures are complete. - Resume daily ASA and dvt ppx following procedures. > Rehab medicine consulted, IRF vs. SNF on discharge. PMR rec IPR. > Delirium precautions, limit opiates and anticholinergics as able Mass-like RUL opacity, concern for primary neoplasm Mediastinal and Hilar LAD, concern for metastatic disease Tree-in-bud opacities Nicotine dependence - smokes 1/2 PPD but has 120 pack year history - Patient asymptomatic from an infectious standpoint. He has chronic cough produ ctive of clear sputum that is unchanged. He is not meeting SIRS criteria. Conc erning for underlying malignancy. He has had weight loss that was previously at tributed to his essential tremor and inability to eat but no other constitutiona l symptoms. - 10/26 CT chest with contrast 1. 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 2. Mild c ardiomegaly with interstitial thickening and groundglass opacity throughout both lungs, most likely representing CHF. 3. Moderate mediastinal and bilateral hi lar lymphadenopathy suspicious for metastatic disease. 4. Diffuse nodularity t hroughout both lungs and pleura concerning for metastatic disease. This could al so be infectious. 5. Moderate emphysema and scattered areas of scarring. 6. Trace pleural effusions. 7. Small hypodense right renal lesion is indeterminat e and may be a cyst. Ultrasound characterization is recommended. 8. Marked cor onary artery calcification. - PET Scan 10/30: Limited examination due to diffuse muscular uptake from hyperi nsulinemia and misregistration. Irregular hypermetabolic right upper lobe pulmon giovanna mass most compatible with primary neoplasm. Hypermetabolic mediastinal and b ilateral hilar lymphadenopathy suggestive of jodie metastatic disease. Consider endobronchial ultrasound and biopsy for confirmation. Innumerable tiny pulmonary nodules, opacities, and septal thickening throughout both lungs suggestive of m etastatic disease or possible superimposed infection. See recent CT chest > Pulmonary consulted; - EBUS and navigational bronchoscopy on 10/31. > Oncology are consulted, appreciate recs - Will plan for medical oncology follow up at [facility]. Will follow up PET , and path results. > No antibiotics indicated at this time > Continue robitussin PRN, cough drops PRN, > PRN NRT (lozenges) and encouraged smoking cessation Macrocytosis with minimal anemia Thrombocytopenia Lymphopenia - mild anemia but macrocytic. Also with mild thrombocytopenia, lymphopenia. Po ssibly nutritional - Iron studies with mild iron deficiency - B12 and folate replete > Continue to monitor > PO Iron supp started Urinary retention Hematuria - noted on UA - 10/28 possible urinary retention > Bladder scan to assess for urinary retention > Repeat UA as an outpatient. If hematuria persists, will need urology referral Weight loss - Secondary to essential tremor versus underlying malignancy. > Balancing Machine Set Up Worker consult for nutritional assessment s/p TAVR several years ago Hx of HTN, HLD, PAD - hx of Stenting/balloon angioplasty to RLE. Has chronic claudication symptoms - CT chest with marked coronary calcifications > Continue RETIREMENT SALES CONSULTANT statin. > Change RETIREMENT SALES CONSULTANT metoprolol tartrate 50mg BID to Coreg 12.5mg BID for better BP control. May add amlodipine if BP not well controlled with change. - Has PRN Labetalol and Hydralazine PRN. > Holding ASA as above. Chronic LBP - hx of multiple steroid injections s/p surgical intervention > Continue scheduled APAP 1000mg TID with LFT monitoring > Continue lidocaine patch to back > Has robaxin, tramadol, - daughter states oxycodone has caused confusion in the past - D/c'ed Ibuprofen (antiplatelet effects) and oxycodone (has not used in >24 hours) on 10/29 > Scheduled bowel regimen is ordered, monitor for BM > Can consider interventional anesthesia if he desires intervention, but sounds as if they have not been effective for him in the past > May also consider addition of gabapentin CAD with hx of PCI - Per reports had staged PCI ~ 3 years ago. Was taking full dose ASA multiple ti mes per day for pain, off since Nov due to SDH > Continue BB, statin > Holding ASA at this time Essential Tremor - plan was for focused ultrasound but work up revealed incidental SDH > Defer to outpatient neurosrugery > PT/OT consulted FEN: - No IVFs. - Replace lytes prn. - DIET NPO AT MIDNIGHT PPx: - SCDs. No chemical ppx with SDH and planned procedure. Per Neurosurgery's note from 10/28, they are ok with antiplatelet therapy and AC once procedures are com pleted.. Code: - Full Code . Dispo: - Cont inpatient admission to medicine. Will need facility placement. Plan was discussed in length with the patient and his family. All questions were answered to their best satisfaction. Sahil Mejia MD Hospitalist [employer] [id number] Voalte is the preferred method of communication. Please use the [employer] First Call for all patient-related communications. Pe rsonal Voaltes and pagers are not answered at all hours. I spent a total of more than 35 minutes directly involved in pt care today with more than half of the time spent counseling and evaluating pt [id number], and on the unit/floor coordinating care (coordinating with RN, SW/CM, PT/OT, RT), a nd reviewing chart, labs/radiology, and office 365 consultant recommendations. Subjective Scot Bell is a 82 y.o. male. Chart reviewed. Patient was seen and examined. No acute events overnight. Did not undergo bronchoscopy yesterday, it is planne d for this afternoon. He was able to eat yesterday evening. Still having some ongoing delirium and word finding difficulty. This morning he remains oriented to person, is able to state hospital when given multiple choice options regardin g location, not oriented to year or month. Is able to correctly identify a shoe when given multiple choice options. Discussed placement options inpatient rehab versus longterm, also at the mercy of his insurance for which type of p lacement they will cover. Review of Systems: No CP, SOA, cough, hemoptysis, abd pain, N/V, dysuria, hematu iain, fevers, chills or night sweats Medications Scheduled Meds:acetaminophen (TYLENOL EXTRA STRENGTH) tablet 1,000 mg, 1,000 mg, Oral, Q8H atorvastatin (LIPITOR) tablet 80 mg, 80 mg, Oral, QDAY carvediloL (COREG) tablet 12.5 mg, 12.5 mg, Oral, BID docusate (COLACE) capsule 100 mg, 100 mg, Oral, BID ferrous gluconate tablet 324 mg, 324 mg, Oral, Q48H* fluticasone propionate (FLONASE) nasal spray 2 spray, 2 spray, Each Nostril, QDA Y lidocaine (LIDODERM) 5 % topical patch 1 patch, 1 patch, Topical, QDAY methocarbamoL (ROBAXIN) tablet 500 mg, 500 mg, Oral, BID milk of magnesia (CONC) oral suspension 10 mL, 10 mL, Oral, QDAY polyethylene glycol 3350 (MIRALAX) packet 17 g, 1 packet, Oral, QDAY senna/docusate (SENOKOT-S) tablet 1 tablet, 1 tablet, Oral, BID Continuous Infusions: PRN and Respiratory Meds:dextromethorphan/guaiFENesin (ROBITUSSIN-DM) oral syru p Q6H PRN, eucalyptus-menthoL Q2H PRN, hydrALAZINE Q8H PRN, labetalol (NORMODYNE ; TRANDATE) injection Q15 MIN PRN, nicotine (polacrilex) Q1H PRN, ondansetron (Z OFRAN) IV Q6H PRN, sodium chloride PRN, traMADoL Q6H PRN Objective: Vital Signs: Last Filed Vital Signs: 24 Costa r Range BP: 157/68 (10/31 629) Temp: 36.4 C (97.5 F) (10/31 415) Pulse: 60 (10/30 2017) Respirations: 17 PER MINUTE (10/31 415) SpO2: 96 % (10/31 415) O2 Device: None (Room air) (10/31 415) BP: (125-163)/(52-86) Temp: [36.4 C (97.5 F)-36.9 C (98.4 F)] Pulse: [60-65] Respirations: [17 PER MINUTE-19 PER MINUTE] SpO2: [94 %-96 %] O2 Device: None (Room air) Intensity Pain Scale (Self Report): 0 (10/30/222147) Vitals: 10/25/22 09 Weight: 58.5 kg (129 lb) Intake/Output Summary: (Last 24 hours) Intake/Output Summary (Last 24 hours) at 10/31/2022 075 Last data filed at 10/31/2022 0416 Gross per 24 hour Intake -- Output 1150 ml Net -1150 ml Stool Occurrence: 0 Physical Exam General: Alert, thin elderly male appears stated age, in NAD Head: Normocephalic, atraumatic Eyes: Normal conjunctiva, non-icteric sclera Neck: Trachea midline, no stridor Lungs: Clear to auscultation bilaterally, non-labored on RA Heart: Regular rate and rhythm, 2/6 ejection systolic murmur noted at the apex Ext: no peripheral edema. Abdomen: Soft, non-tender. Bowel sounds + Skin: Warm and dry Neurologic: A&O to person, and location given multiple choice options, nonfocal. Prominent word finding difficulty. Following commands. Tremor worsened by action. Able to answer most questions appropriately. Lab Review Pertinent labs reviewed. Point of Care Testing (Last 24 hours) Glucose: 85 (10/31/22425) Radiology and other Diagnostics Review: Pertinent radiology reviewed. RIBUTOR OPERATOR * Case Tyler PTA - 10/30/2022 3:33 PM CST PHYSICAL THERAPY PROGRESS NOTE Name: Scot Bell : 1940 Age: 82 y.o. Admission Date: 10/24/2022 LOS: 5 days Date of Service: 10/30/2022 Mobility Progressive Mobility Level: Walk in hallway Distance Walked (feet): 180 ft Level of Assistance: Assist X2 Assistive Device: Hand Held Activity Limited By: Weakness;Fatigue;Mental Status Variability Subjective Significant hospital events: 82 y.o. 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 The patient has baseline mixed tremor symptoms in the BUE. He is otherwise neurologically in tact. CT Head from OSH was reviewed which demonstrated acute on chronic R convexity SDH with 4-5 mm midline shift. S/p MMA Embo 10/28 Mental / Cognitive Status: Alert;Oriented;Cooperative;Follows Commands (Hard of hearing) Persons Present: Family;RehabTechnician Pain: Patient has no complaint of pain Pain Interventions: Patient agrees to participate in therapy;Patient assisted in to position of comfort Comments: L visual field cut, however noted additional visual impairments on Comments: Difficulty tracking to both R and L side this date. Only able to ident leroy objects in direct midline. Ambulation Assist: Independent Mobility in Community without Device Patient Owned Equipment: Roller Walker;Manual Wheelchair;Single Point Cane Home Situation: Lives with Family (2 sons) Type of Home: House Entry Stairs: 1-2 Stairs;Rail on 1 Side (2 steps to enter) In-Home Stairs: Able to Live on One Level Comments: Patient reports that he was independent with mobility and most ADL, bu t has difficulty with feeding himself due to tremor Bed Mobility/Transfer Comments: Patient sitting up in bedside chair upon arrival and end of session. Transfer Type: Sit to/from Stand Transfer: Assistance Level: To/From;Bed Side Chair;Minimal Assist;x2 People Transfer: Assistive Device: Hand Hold Assist Transfers: Type Of Assistance: For Balance;For Strength Deficit;For Safety Consi derations End Of Activity Status: Up in Chair;Nursing Notified;Instructed Patient to Reque st Assist with Mobility;Instructed Patient to Use Call Light (alarm activated) Balance Standing Balance: Static Standing Balance;Dynamic Standing Balance;2 UE support; Minimal Assist;x2 People Gait Gait Distance: 180 feet Gait: Assistance Level: Minimal Assist;x2 People (progressed to moderate assist x1 hand held) Gait: Assistive Device: Hand Hold Assist Gait: Descriptors: Pace: Slow;No balance loss;Variable step length Comments: Patient ambulates in hallway with minimal assist x2 hand held assist i nitially. After ~50ft pt progresses to min/mod assist x1 person hand held with s tandby assist of second person. Visual scanning activity during gait. Pt able to scan to both sides with maximal cues and encouragement R>L; not consistent. Pt demonstrating improved verbalization today answering multiple questions appropriately. Activity Limited By: Complaint of Fatigue;Weakness Assessment/Progress Impaired Mobility Due To: Decreased Strength;Pain;Impaired Balance;Decreased Act ivity Tolerance;Medical Status Limitation Assessment/Progress: Should Improve w/ Continued PT AM-PAC 6 Clicks Basic Mobility Inpatient Turning from your back to your side while in a flat bed without using bed rails: A Little Moving from lying on your back to sitting on the side of a flat bed without usin g bedrails : A Little Moving to and from a bed to a chair (including a wheelchair): A Lot Standing up from a chair using your arms (e.g. wheelchair, or bedside chair): A Lot To walk in hospital room: A Lot Climbing 3-5 steps with a railing: Total Basic Mobility Inpatient Raw Score: 13 Standardized (T-scale) Score: 33.99 Goals Goal Formulation: With Patient Time For Goal Achievement: 5 days, To, 7 days Patient Will Go Supine To/From Sit: Independently Patient Will Transfer Sit to Stand: Independently Patient Will Ambulate: Greater than 200 Feet, w/ No Device, w/ Stand By Assist Patient Will Go Up / Down Stairs: 1-2 Stairs, w/ Stand By Assist Plan Treatment Interventions: Mobility Training;Strengthening;Balance Activities;Endu marin Training;Neuromuscular Reeducation Plan Frequency: 5 Days per Week PT Plan for Next Visit: Work on safety and independence with transfers. Increase ambulation distance. PT Discharge Recommendations Recommendation: Inpatient setting;Recommend rehab medicine consult Patient Currently Requires Physical Assist With: All mobility Therapist: Case Tyler, RETIREMENT SALES CONSULTANT Date: 10/30/2022 RIBUTOR OPERATOR * Cheryl Barrientos OT - 10/30/2022 1:30 PM CST OCCUPATIONAL THERAPY NOTE Name: Scot Bell : 1940 Age: 82 y.o. Admission Date: 10/24/2022 LOS: 5 days Date of Service: 10/30/2022 Transport present to take pt to PET scan at scheduled therapy time. Will continu e to attempt as able. Therapist: Cheryl Barrientos OTR/L [id number] Date: 10/30/2022 RIBUTOR OPERATOR * Sahil Mejia MD - 10/30/2022 5:37 AM CST General Progress Note Name: Scot Bell Today's Date: 10/30/2022 Admission Date: 10/24/2022 LOS: 5 days Assessment/Plan: Principal Problem: SDH (subdural hematoma) Active Problems: Essential tremor PAD (peripheral artery disease) (HCC) Delirium Thrombocytopenia (HCC) Primary hypertension Coronary artery disease involving [place] coronary artery of [place] heart witho ut angina pectoris Chronic low back pain Assessment/Plan: Scot Bell is a 82 y.o. 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 Medicine consulted for management of multiple co-morbidities as well as work up of new possible lung mass Acute on chronic R subdural hemorrhage - found incidentally during outpatient evaluation for Focused US for essential t remor. Repeat CT at admission with concern for interval bleed, mixed blood produ cts on scan - S/p IR R MMA embolization on 10/28 due to anticipated need for AC > Hold AC for now with planned procedures. Will address antiplatelet therapy and DVT ppx once all procedures are complete. 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 US showed Atherosclerotic disease resulting in a severe, likely near occlusive luminal stenosis of the left cervi milagro vertebral origin. - stroke work up initiated by neurology - defer need for vascular intervention to neuro/neurosurgery - patient stroke actived on 10/27 for increased confusion NIHSS 6 (mainly for ac [place] confusion; inability to answer orientation questions, follow commands, unabl e to comprehend; answer appropriately, inconsistent response to visual threat. A t baseline patient has LUQ visual field deficit)-- suspect stroke mimic - 65 minute EEG abnormal >1 hour EEG is indicative of a mild to moderate encephalopathy. No epileptiform signs are seen. - ANSELMO 10/29: There was no thrombus visualized in the left atrial appendage utili zing multiple views and color flow Doppler. No interatrial shunting by color-richard w or agitated saline contrast. There was rare, late (>5 beats) agitated saline contrast seen in the left atrium which is most suggestive of a pulmonary source of shunting. Qualitatively normal LV size and systolic function, EF ~ 60-65 %. Qualitatively normal RV size and systolic function. Mildly dilated left atrium, normal size right atrium. 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 No evidence of valvular stenosis with thin leaflets with normal leaflet excursion (peak velocity = 2.6 m/s, mean gradient = 13 mmHg, AT =95 ms). There is mild to moderate paravalvular regurgitation at the 12 to 1 o'clock position. No transvalvular regurgitation. There is moderate mitral annular calcification with mild mitral stenosis (mean gradient of 4 mmHg at 63 bpm, MVA = 1.59 cm). There is mild-moderate mitral regurgitation. Mild to moderate tricuspid regurgitation. Moderate layered atheromatous plaque present in the descending aorta. No pericardial effusion. > Neurology is consulted, appreciate recs. Resume ASA once able. > Cont RETIREMENT SALES CONSULTANT statin > Will address antiplatelet therapy and DVT ppx once all procedures are complete. - Resume daily ASA and dvt ppx following procedures. > Rehab medicine consulted, IRF vs. SNF on discharge. PMR rec IPR. > Delirium precautions, limit opiates and anticholinergics as able Mass-like RUL opacity, concern for primary neoplasm Mediastinal and Hilar LAD, concern for metastatic disease Tree-in-bud opacities Nicotine dependence - smokes 1/2 PPD but has 120 pack year history - Patient asymptomatic from an infectious standpoint. He has chronic cough produ ctive of clear sputum that is unchanged. He is not meeting SIRS criteria. Conc erning for underlying malignancy. He has had weight loss that was previously at tributed to his essential tremor and inability to eat but no other constitutiona l symptoms. - 10/26 CT chest with contrast 1. 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 2. Mild c ardiomegaly with interstitial thickening and groundglass opacity throughout both lungs, most likely representing CHF. 3. Moderate mediastinal and bilateral hi lar lymphadenopathy suspicious for metastatic disease. 4. Diffuse nodularity t hroughout both lungs and pleura concerning for metastatic disease. This could al so be infectious. 5. Moderate emphysema and scattered areas of scarring. 6. Trace pleural effusions. 7. Small hypodense right renal lesion is indeterminat e and may be a cyst. Ultrasound characterization is recommended. 8. Marked cor onary artery calcification. - Pulmonary and Oncology are consulted, appreciate recs > EBUS and navigational bronchoscopy tentatively 10/30. > PET scan ordered and pending. Scheduled for 10/30 > No antibiotics indicated at this time > Continue robitussin PRN, cough drops PRN, > PRN NRT (lozenges) and encouraged smoking cessation Macrocytosis with minimal anemia Thrombocytopenia Lymphopenia - mild anemia but macrocytic. Also with mild thrombocytopenia, lymphopenia. Po ssibly nutritional - Iron studies with mild iron deficiency - B12 and folate replete > Continue to monitor > PO Iron supp started Urinary retention Hematuria - noted on UA - 10/28 possible urinary retention > Bladder scan to assess for urinary retention > Repeat UA as an outpatient. If hematuria persists, will need urology referral Weight loss - Secondary to essential tremor versus underlying malignancy. > Balancing Machine Set Up Worker consult for nutritional assessment s/p TAVR several years ago Hx of HTN, HLD, PAD - hx of Stenting/balloon angioplasty to RLE. Has chronic claudication symptoms - CT chest with marked coronary calcifications > Continue RETIREMENT SALES CONSULTANT statin and BB. Has PRN Labetalol and Hydralazine PRN. > Holding ASA as above. Chronic LBP - hx of multiple steroid injections s/p surgical intervention > Continue scheduled APAP 1000mg TID with LFT monitoring > Continue lidocaine patch to back > Has robaxin, tramadol, - daughter states oxycodone has caused confusion in the past - D/c'ed Ibuprofen (antiplatelet effects) and oxycodone (has not used in >24 hours) on 10/29 > Scheduled bowel regimen is ordered, monitor for BM > Can consider interventional anesthesia if he desires intervention, but sounds as if they have not been effective for him in the past > May also consider addition of gabapentin CAD with hx of PCI - Per reports had staged PCI ~ 3 years ago. Was taking full dose ASA multiple ti mes per day for pain, off since Nov due to SDH > Continue BB, statin > Holding ASA at this time Essential Tremor - plan was for focused ultrasound but work up revealed incidental SDH > Defer to outpatient neurosrugery > PT/OT consulted FEN: - No IVFs. - Replace lytes prn. - DIET NPO AT MIDNIGHT PPx: - SCDs. No chemical ppx with SDH and planned procedure. Per Neurosurgery's note from 10/28, they are ok with antiplatelet therapy and AC once procedures are com pleted.. Code: - Full Code . Dispo: - Cont inpatient admission to medicine. Will need facility placement. Plan was discussed in length with the patient and his family. All questions were answered to their best satisfaction. Sahil Mejia MD Hospitalist [employer] [id number] Voalte is the preferred method of communication. Please use the [employer] First Call for all patient-related communications. Pe rsonal Voaltes and pagers are not answered at all hours. I spent a total of more than 35 minutes directly involved in pt care today with more than half of the time spent counseling and evaluating pt [id number], and on the unit/floor coordinating care (coordinating with RN, SW/CM, PT/OT, RT), a nd reviewing chart, labs/radiology, and office 365 consultant recommendations. Subjective Scot Bell is a 82 y.o. male. Chart reviewed. Patient was seen and examined. No acute events overnight. Doing well today. Family at the bedside. Oriented to person only today, but answers review of system questions. Denies chest pain, sh ortness of breath. Reviewed plan to proceed with bronchoscopy today. He will nee d placement on d/c. Review of Systems: No CP, SOA, cough, hemoptysis, abd pain, N/V, dysuria, hematu iain, fevers, chills or night sweats Medications Scheduled Meds:acetaminophen (TYLENOL) tablet 650 mg, 650 mg, Oral, Q6H while aw mone atorvastatin (LIPITOR) tablet 80 mg, 80 mg, Oral, QDAY docusate (COLACE) capsule 100 mg, 100 mg, Oral, BID fluticasone propionate (FLONASE) nasal spray 2 spray, 2 spray, Each Nostril, QDA Y lidocaine (LIDODERM) 5 % topical patch 1 patch, 1 patch, Topical, QDAY methocarbamoL (ROBAXIN) tablet 500 mg, 500 mg, Oral, BID metoprolol tartrate (LOPRESSOR) tablet 50 mg, 50 mg, Oral, BID milk of magnesia (CONC) oral suspension 10 mL, 10 mL, Oral, QDAY polyethylene glycol 3350 (MIRALAX) packet 17 g, 1 packet, Oral, QDAY senna/docusate (SENOKOT-S) tablet 1 tablet, 1 tablet, Oral, BID Continuous Infusions: PRN and Respiratory Meds:dextromethorphan/guaiFENesin (ROBITUSSIN-DM) oral syru p Q6H PRN, eucalyptus-menthoL Q2H PRN, hydrALAZINE Q6H PRN, ibuprofen Q6H PRN, l abetalol (NORMODYNE; TRANDATE) injection Q15 MIN PRN, nicotine (polacrilex) Q1H PRN, ondansetron (ZOFRAN) IV Q6H PRN, oxyCODONE Q4H PRN, sodium chloride PRN, tr aMADoL Q6H PRN Objective: Vital Signs: Last Filed Vital Signs: 24 Costa r Range BP: 166/68 (10/30 53) Temp: 36.3 C (97.4 F) (10/30 53) Pulse: 58 (10/30 53) Respirations: 16 PER MINUTE (10/30 53) SpO2: 93 % (10/30 53) O2 Device: None (Room air) (10/30 53) O2 Liter Flow: 2 Lpm (10/29 1530) Height: 170.2 cm (5' 7.01") (10/29 1540) BP: (128-167)/(42-75) Temp: [36.3 C (97.3 F)-36.7 C (98 F)] Pulse: [49-69] Respirations: [16 PER MINUTE-18 PER MINUTE] SpO2: [93 %-100 %] O2 Device: None (Room air) O2 Liter Flow: 2 Lpm Intensity Pain Scale (Self Report): 5 (10/29/22 1607) Vitals: 10/25/22 0902 Weight: 58.5 kg (129 lb) Intake/Output Summary: (Last 24 hours) Intake/Output Summary (Last 24 hours) at 10/30/2022 0537 Last data filed at 10/29/2022 1800 Gross per 24 hour Intake 300 ml Output 150 ml Net 150 ml Stool Occurrence: 0 Physical Exam General: Alert, thin elderly male appears stated age, in NAD Head: Normocephalic, atraumatic Eyes: Normal conjunctiva, non-icteric sclera Neck: No JVD Lungs: Clear to auscultation bilaterally, non-labored on RA Heart: Regular rate and rhythm, 2/6 ejection systolic murmur noted at the apex Ext: no peripheral edema. Abdomen: Soft, non-tender. Bowel sounds + Skin: Warm and dry Neurologic: A&O to person only on 10/30. Following commands. Speech somewhat slurred. Tremor worsened by action. Able to answer most questions appropriately. Lab Review Pertinent labs reviewed. Point of Care Testing (Last 24 hours) Radiology and other Diagnostics Review: Pertinent radiology reviewed. RIBUTOR OPERATOR * Dottie Montes RD - 10/29/2022 3:31 PM CST CLINICAL NUTRITION Clinical Nutrition Initial Assessment Name: Scot Bell : 1940 Age: 82 y.o. Admission Date: 10/24/2022 LOS: 4 days Date of Service: 10/29/2022 Recommendation: Once medically appropriate; advance diet as tolerated to Regular Encourage intake of 3 meals daily; including a protein with each meal Encourage high protein, high calorie full liquids to promote appetite and eas e work of eating: whole milk, yogurt, cream soups, oral nutrition supplements, b aked custard, etc. --Can fortify full liquids with 1-2 packets Beneprotein, sweet clear liquids (ju ice, Crystal Light) with Prosource. Comments: Scot Bell is a 82 y.o. male with PMH of HLD, HTN, PAD status post stenting, C AD status post PCI, chronic low back pain, and essential tremors. Admitted with acute on chronic right subdural hemorrhage with subacute CVA.Also noted to hav e new lung mass. Patient lethargic and oriented x2 this morning, in procedure th is afternoon. Screened to clinical nutrition for weight loss; noted 129 lbs on a dmit and 125 lbs 1 month ago. Short re-evaluation set to establish subjective hi story and to clinical mental health counselor on way to optimize nutrient intake to meet metabolic demand s. Nutrition Assessment of Patient: Admit Weight: 58.5 kg; ; BMI (Calculated): 20.2; BMI Categories Adult: Acceptable: 18.5-24.9; Pertinent Allergies/Intolerances: none to note Pertinent Labs: reviewed; nutritionally unremarkable; Pertinent Meds: lipitor, c olace, miralax, senokot; Oral Diet Order: NPO at midnight (PET Scan); Current Oral Intake: Marginally Adequate Estimated Calorie Needs: 0146-0083 (27-30 kcal/kg current weight) Estimated Protein Needs: 70-85 (1.2-1.4 g/kg current weight) Malnutrition Assessment: Does not meet criteria Nutrition Focused Physical Assessment: Edema: No; ; Pressure Injury: none to note Comment: +BM 10/28, abdomen WDL per RN Nutrition Diagnosis: Increased nutrient needs, specify: (kcal, protein) Etiology: increased metabolic demands Signs & Symptoms: SDH + new lung mass Intervention / Plan: Assessment of nutritional status, needs Reviewed ways to increased nutrient intake to meet demands Monitor intake, weight, GI function, labs, medications. Goals: Patient to consume >75% of meals Time Frame: Throughout stay Maintain present weight +/- 5% Time Frame: Throughout stay Dottie Montes, MS, RD, LD, [facility] Office: [phone] [facility] Connect RIBUTOR OPERATOR * Case Tyler PTA - 10/29/2022 1:40 PM CST PHYSICAL THERAPY NOTE Name: Scot Bell : 1940 Age: 82 y.o. Admission Date: 10/24/2022 LOS: 4 days Date of Service: 10/29/2022 Attempted to work with patient at scheduled time with director of cardiac rehabilitation. Patient was un available for physical therapy, off unit for procedure. Physical therapy will co ntinue to follow and provide intervention as indicated. Therapist: Case Tyler PTA Date: 10/29/2022 RIBUTOR OPERATOR * Chioma Metzger MD - 10/29/2022 11:49 AM CST General Progress Note Name: Scot Bell Today's Date: 10/29/2022 Admission Date: 10/24/2022 LOS: 4 days Assessment/Plan: Principal Problem: SDH (subdural hematoma) Assessment/Plan: Scot Bell is a 82 y.o. 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 Medicine consulted for management of multiple co-morbidities as well as work up of new possible lung mass Acute on chronic R subdural hemorrhage - found incidentally during outpatient evaluation for Focused US for essential t remor. Repeat CT at admission with concern for interval bleed, mixed blood produ cts on scan - S/p IR R MMA embolization on 10/28 due to anticipated need for AC > Hold AC for now with planned procedures. Will address antiplatelet therapy and DVT ppx once all procedures are complete. 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 US showed Atherosclerotic disease resulting in a severe, likely near occlusive luminal stenosis of the left cervi milagro vertebral origin. - stroke work up initiated by neurology - defer need for vascular intervention to neuro/neurosurgery - patient stroke actived on 10/27 for increased confusion NIHSS 6 (mainly for ac [place] confusion; inability to answer orientation questions, follow commands, unabl e to comprehend; answer appropriately, inconsistent response to visual threat. A t baseline patient has LUQ visual field deficit)-- suspect stroke mimic - 65 minute EEG abnormal >1 hour EEG is indicative of a mild to moderate encephalopathy. No epileptiform signs are seen. - Neurology is consulted, appreciate recs > Plan for ANSELMO today to rule out PFO, closure if PFO detected > Cont RETIREMENT SALES CONSULTANT statin > Will address antiplatelet therapy and DVT ppx once all procedures are complete. > Rehab medicine consulted, IRF vs. SNF on discharge > Delirium precautions, limit opiates and anticholinergics as able Mass-like RUL opacity, concern for primary neoplasm Mediastinal and Hilar LAD, concern for metastatic disease Tree-in-bud opacities Nicotine dependence - smokes 1/2 PPD but has 120 pack year history - Patient asymptomatic from an infectious standpoint. He has chronic cough produ ctive of clear sputum that is unchanged. He is not meeting SIRS criteria. Conc erning for underlying malignancy. He has had weight loss that was previously at tributed to his essential tremor and inability to eat but no other constitutiona l symptoms. - 10/26 CT chest with contrast 1. 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 2. Mild c ardiomegaly with interstitial thickening and groundglass opacity throughout both lungs, most likely representing CHF. 3. Moderate mediastinal and bilateral hi lar lymphadenopathy suspicious for metastatic disease. 4. Diffuse nodularity t hroughout both lungs and pleura concerning for metastatic disease. This could al so be infectious. 5. Moderate emphysema and scattered areas of scarring. 6. Trace pleural effusions. 7. Small hypodense right renal lesion is indeterminat e and may be a cyst. Ultrasound characterization is recommended. 8. Marked cor onary artery calcification. - Pulmonary and Oncology are consulted, appreciate recs > EBUS and navigational bronchoscopy tentatively tomorrow. > PET scan ordered and pending. > No antibiotics indicated at this time > Continue robitussin PRN, cough drops PRN, > PRN NRT (lozenges) and encouraged smoking cessation Macrocytosis with minimal anemia Thrombocytopenia Lymphopenia - mild anemia but macrocytic. Also with mild thrombocytopenia, lymphopenia. Po ssibly nutritional - Iron studies with mild iron deficiency - B12 and folate replete > Continue to monitor Urinary retention Hematuria - noted on UA - 10/28 possible urinary retention > Bladder scan to assess for urinary retention > Repeat UA as an outpatient. If hematuria persists, will need urology referral Weight loss - Secondary to essential tremor versus underlying malignancy. > Balancing Machine Set Up Worker consult for nutritional assessment s/p TAVR several years ago Hx of HTN, HLD, PAD - hx of Stenting/balloon angioplasty to RLE. Has chronic claudication symptoms - CT chest with marked coronary calcifications > Continue RETIREMENT SALES CONSULTANT statin and BB. Has PRN Labetalol and Hydralazine PRN. > Holding ASA as above. Chronic LBP - hx of multiple steroid injections s/p surgical intervention > Continue scheduled APAP 1000mg TID with LFT monitoring > Continue lidocaine patch to back > Has robaxin, tramadol, ibuprofen and oxycodone-- daughter states oxycodone has caused confusion in the past > Scheduled bowel regimen is ordered, monitor for BM > Can consider interventional anesthesia if he desires intervention, but sounds as if they have not been effective for him in the past > Delirium precautions CAD with hx of PCI - Per reports had staged PCI ~ 3 years ago. Was taking full dose ASA multiple ti mes per day for pain, off since Nov due to SDH > Continue BB, statin > Holding ASA at this time Essential Tremor - plan was for focused ultrasound but work up revealed incidental SDH > Defer to outpatient neurosrugery > PT/OT consulted FEN: - No IVFs. - Replace lytes prn. - DIET NPO AT MIDNIGHT DIET NPO AT MIDNIGHT PPx: - SCDs. No chemical ppx with SDH and planned procedure. Per Neurosurgery's note from 10/28, they are ok with antiplatelet therapy and AC once procedures are com pleted.. Code: - Full Code . Dispo: - Cont inpatient admission to medicine. Plan was discussed in length with the patient and his family. All questions were answered to their best satisfaction. The patient has complex medical problems requiring inpatient interventions, repr esented by the above problems. I spent more than 35 minutes evaluating the patie nt, formulating plan, reviewing medical chart, directing medication management, reviewing vitals, labs and radiology results. More than 50% of the time was spen t in [id number] contact with the patient at bedside. Chioma Metzger MD Clinical Bar [facility]ward - Internal Medicine [facility] [id number] Subjective Scot Bell is a 82 y.o. male. Patient was seen and examined. No acute events overnight. Doing well today. Family at the bedside. Had no complains. Denies any headache. No new neurologic deficits. I reviewed the care plan above with him a nd his family. Review of Systems: No CP, SOA, cough, hemoptysis, abd pain, N/V, dysuria, hematu iain, fevers, chills or night sweats Medications Scheduled Meds:acetaminophen (TYLENOL) tablet 650 mg, 650 mg, Oral, Q6H while aw mone atorvastatin (LIPITOR) tablet 80 mg, 80 mg, Oral, QDAY docusate (COLACE) capsule 100 mg, 100 mg, Oral, BID fluticasone propionate (FLONASE) nasal spray 2 spray, 2 spray, Each Nostril, QDA Y lidocaine (LIDODERM) 5 % topical patch 1 patch, 1 patch, Topical, QDAY methocarbamoL (ROBAXIN) tablet 500 mg, 500 mg, Oral, BID metoprolol tartrate (LOPRESSOR) tablet 50 mg, 50 mg, Oral, BID milk of magnesia (CONC) oral suspension 10 mL, 10 mL, Oral, QDAY polyethylene glycol 3350 (MIRALAX) packet 17 g, 1 packet, Oral, QDAY senna/docusate (SENOKOT-S) tablet 1 tablet, 1 tablet, Oral, BID Continuous Infusions: PRN and Respiratory Meds:dextromethorphan/guaiFENesin (ROBITUSSIN-DM) oral syru p Q6H PRN, eucalyptus-menthoL Q2H PRN, hydrALAZINE Q6H PRN, ibuprofen Q6H PRN, l abetalol (NORMODYNE; TRANDATE) injection Q15 MIN PRN, nicotine (polacrilex) Q1H PRN, ondansetron (ZOFRAN) IV Q6H PRN, oxyCODONE Q4H PRN, sodium chloride PRN, tr aMADoL Q6H PRN Objective: Vital Signs: Last Filed Vital Signs: 24 [place] Range BP: 128/68 (10/29 1100) Temp: 36.5 C (97.7 F) (10/29 1100) Pulse: 49 (10/29 1100) Respirations: 18 PER MINUTE (10/29 1100) SpO2: 95 % (10/29 1100) O2 Device: None (Room air) (10/29 1100) BP: (110-167)/(48-68) Temp: [36.3 C (97.3 F)-36.6 C (97.8 F)] Pulse: [49-66] Respirations: [18 PER MINUTE-19 PER MINUTE] SpO2: [93 %-97 %] O2 Device: None (Room air) Intensity Pain Scale (Self Report): 5 (10/29/22 0715) Vitals: 10/25/22 0902 Weight: 58.5 kg (129 lb) Intake/Output Summary: (Last 24 hours) Intake/Output Summary (Last 24 hours) at 10/29/2022 1149 Last data filed at 10/28/2022 2300 Gross per 24 hour Intake -- Output 700 ml Net -700 ml Stool Occurrence: 0 Physical Exam General: Alert, thin elderly male appears stated age, in NAD Head: Normocephalic, atraumatic Eyes: Normal conjunctiva, non-icteric sclera Neck: No JVD Lungs: Clear to auscultation bilaterally, non-labored on RA Heart: Regular rate and rhythm, 2/6 ejection systolic murmur noted at the apex Ext: no peripheral edema. R radial access site dressing c/d/i Abdomen: Soft, non-tender. Bowel sounds hyperactive Skin: No visible rashes or lesions Neurologic: A&O. Following commanded. Speech somewhat slurred. Facial features symmetric, Moves all extremities without difficulty. Tremor worsened by action. Follows commands and answer questions appropriately. Lab Review 24-hour labs: Results for orders placed or performed during the hospital encounter of 10/24/22 (from the past 24 hour(s)) CBC AND DIFF Collection Time: 10/29/22 3:57 AM Result Value Ref Range White Blood Cells 4.5 4.5 - 11.0 K/UL RBC 3.31 (L) 4.4 - 5.5 M/UL Hemoglobin 11.3 (L) 13.5 - 16.5 GM/DL Hematocrit 33.2 (L) 40 - 50 % MCV 100.3 (H) 80 - 100 FL MCH 34.1 (H) 26 - 34 PG MCHC 34.0 32.0 - 36.0 G/DL RDW 14.4 11 - 15 % Platelet Count 107 (L) 150 - 400 K/UL MPV 9.5 7 - 11 FL Neutrophils 71 41 - 77 % Lymphocytes 12 (L) 24 - 44 % Monocytes 16 (H) 4 - 12 % Eosinophils 0 0 - 5 % Basophils 1 0 - 2 % Absolute Neutrophil Count 3.17 1.8 - 7.0 K/UL Absolute Lymph Count 0.56 (L) 1.0 - 4.8 K/UL Absolute Monocyte Count 0.74 0 - 0.80 K/UL Absolute Eosinophil Count 0.02 0 - 0.45 K/UL Absolute Basophil Count 0.02 0 - 0.20 K/UL BASIC METABOLIC PANEL Collection Time: 10/29/22 3:57 AM Result Value Ref Range Sodium 141 137 - 147 MMOL/L Potassium 3.9 3.5 - 5.1 MMOL/L Chloride 106 98 - 110 MMOL/L CO2 24 21 - 30 MMOL/L Anion Gap 11 3 - 12 Glucose 90 70 - 100 MG/DL Blood Urea Nitrogen 26 (H) 7 - 25 MG/DL Creatinine 1.04 0.4 - 1.24 MG/DL Calcium 8.7 8.5 - 10.6 MG/DL eGFR >60 >60 mL/min Point of Care Testing (Last 24 hours) Glucose: 90 (10/29/22 0357) Radiology and other Diagnostics Review: Pertinent radiology reviewed. Chioma Metzger MD [facility] [id number] RIBUTOR OPERATOR * Elaine Monterroso, OT - 10/29/2022 11:27 AM CST OCCUPATIONAL THERAPY PROGRESS NOTE Name: Scot Bell : 1940 Age: 82 y.o. Admission Date: 10/24/2022 LOS: 4 days Date of Service: 10/29/2022 Mobility Patient Turn/Position: Chair Progressive Mobility Level: Walk in hallway Distance Walked (feet): 120 ft (60 + 60) Level of Assistance: Assist X2 Assistive Device: Hand Held Activity Limited By: Mental Status Variability;Weakness;Fatigue Subjective Pertinent Dx per Physician: Scot Bell is a 82 y.o. 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 Precautions: Standard;Falls Comments: Difficulty tracking to both R and L side this date. Only able to ident leroy objects in direct midline. Pain / Complaints: Patient agrees to participate in therapy;Patient demonstrates nonverbal signs of pain Comments: Ok to see per RN. Patient in the chair and agreeable to therapy. Sessi on ended with patient in chair with alarm on and all needs in reach. Objective Psychosocial Status: Willing and Cooperative to Participate Persons Present: Family;RehabTechnician Home Living Type of Home: House Home Layout: One Level;Stairs to Enter w/o Rails (2 TERRELL) Bathroom Shower / Tub: Tub/Shower Unit Bathroom Toilet: Standard Bathroom Equipment: Shower Chair Home Equipment: Cane;Walker;Wheelchair-manual Prior Function Level Of [place]: Independent with ADLs and functional transfers;Needed ass istance with homemaking Lives With: Family (two sons) Receives Help From: Family Other Function Comments: Per patient, he was ambulating independently and able t o manage ADLs. Sons help with IADLs. Patient has had tremors so typically eats f jabier food. He has tried adaptive utensils but reported they have not worked for him Vision Current Vision: Wears Glasses Only for Reading Ocular Range Of Motion: Restricted on the Left;Restricted Looking Up;Restricted Looking Down Tracking: Dec Smoothness of Horizontal Tracking;Dec Smoothness of Vertical Track ing Visual Concepcion: Difficulty Detecting Stimulus in Left Upper Quadrant;Difficulty D etecting Stimulus in Left Lateral Quadrant;Difficulty Detecting Stimulus in Left Lower Quadrant Comment: patient with poor scanning and ocular ROM, needing maximal cues for hea d turns. Only able to see directly in midline/in front of him, appears to have f ield cut in both right and left peripheral ADL's Comment: declined the need for ADLs this session ADL Mobility Transfer Type: Sit to stand Transfer: Assistance Level: Moderate assist;From;Bedside chair Transfer: Assistive Device: Hand hold assist Transfer: Type of Assistance: For balance;Requires extra time;For safety conside rations (vision and initiation) Other Transfer Type: Stand pivot Other Transfer: Assistance Level: From;Bedside chair;To;Wheelchair;Minimal tim t;x2 people Other Transfer: Assistive Device: Hand hold assist Other Transfer: Type of Assistance: For balance;For safety considerations;For st rength deficit End of Activity Status: Instructed patient to request assist with mobility;Instr ucted patient to use call light;Nursing notified;Up in chair Standing Balance: Static standing balance;2 UE support;Moderate assist;Minimal a ssist Gait Distance: 120 feet (60 + 60) Gait: Assistance Level: Moderate assist;of 1st person;Standby assist;of 2nd pers on;Safety considerations Gait: Assistive Device: Hand hold assist;Roller walker Gait Comments: Patient ambulated with bilateral hand held and moderate assist x 1 person and 2nd person for chair follow for safety. 2nd bout of ambulation, att empted use of RW and chair follow. Patient was able to hold onto walker but mode rate assist for balance and management of RW as he would veer towards his right side and difficulty motor planning stand pivots. Shuffled gait with/without AD. When cued to take big steps, he was able to to but unable to maintain as well as walked with narrow NADIR. Discussed with nursing to continue Hand held assist x 2 transfers Activity Tolerance Endurance: 2/5 Tolerates 10-20 Minutes Exercise w/Multiple Rests Cognition Overall Cognitive Status: Impaired Cognition Comment: patient demonstrates YUHAAVIATAM and word finding difficulties. Per darlene prather, this started on Friday and medical team aware. RN also aware and states h e has been waxing/waning with his speech. UE ROM ROM Comments: moderate tremors BUE Sensory Proprioception: L UE Decreased/Impaired UE Strength / Tone Strength Position Assessed: Seated R UE Strength: WFL (4/5) L UE Strength: WFL (4/5) R LE Strength: WFL (4/5) L LE Strength: WFL (4-/5) Strength Comments: both R and L shoulder strength the same but poor awarness and proprioception of L wrist and hand. L wrist/hand weaker than R side Education Persons Educated: Patient/Family Topics: Role of OT, Goals for Therapy;Home safety Goal Formulation: With Patient Assessment Assessment: Decreased ADL Status;Decreased UE ROM;Decreased UE Strength;Decrease d Safe/Judg during ADL;Decreased Cognition;Decreased Endurance;Visual Deficit;De creased Fine Motor Coordination;Decreased Self-Care Trans Prognosis: w/Cont OT s/p Acute Discharge Comments: Patient presents with impaired balance, decreased motor planning, sign ificant visual deficits, cognitive deficits, and hands on assist impacting indep endence with ADLs and mobility. Will benefit from therapeutic intervention. AM-PAC 6 Clicks Daily Activity Inpatient Putting on and taking off regular lower body clothes: A Lot Bathing (Including washing, rinsing, drying): A Lot Toileting, which includes using toilet, bedpan, or urinal: A Lot Putting on and taking off regular upper body clothing: A Lot Taking care of personal grooming such as brushing teeth: A Little Eating meals: A Little Daily Activity Raw Score: 14 Standardized (T-scale) Score: 33.39 Plan Progress: Progressing Toward Goals;Improving as Expected OT Frequency: 5x/week OT Plan for Next Visit: LUE strength, L and R sided attention, visual scanning, grooming standing, functional transfers, Ax1 to chair, Ax2 to progress ambulatio n ADL Goals Patient Will Perform All ADL's: w/ Minimal Assist Functional Transfer Goals Pt Will Perform All Functional Transfers: Minimum Assist Vision Goals Pt Will Scan Environment: 100% of the time, w/ Minimal Cues OT Discharge Recommendations Recommendation: Inpatient setting Patient Currently Requires Physical Assist With: All mobility;All personal care ADLs;All home functioning ADLs Therapist: DEBRA Petersen/[place] [id number] Date: 10/29/2022 RIBUTOR OPERATOR * Madhavi Rodrigez APRN-MERRICK - 10/29/2022 9:55 AM CST Neurosurgery Progress Note Admission Date: 10/24/2022 LOS: 4 days S: Seen earlier this AM, his daughter Tamika is at bedside. Reports okay night, go t some sleep. O: Vital Signs: 24 Hour Range BP: (96-167)/(48-93) Temp: [36.2 C (97.1 F)-36.6 C (97.8 F)] Pulse: [57-70] Respirations: [16 PER MINUTE-23 PER MINUTE] SpO2: [92 %-97 %] O2 Device: None (Room air) O2 Liter Flow: 1 Lpm Physical Exam: Resting in bed- awakens for conversation PERRL Engaged, but difficulty with word finding/expression; answers yes/no questions b riskly States name, able to choose last name and place with choices; unsure on year wit h choices Follows commands x 4; AROM all extremities, strength appears symmetric Dressing on right wrist intact A/P: 82 y.o. male Principal Problem: SDH (subdural hematoma) 10/28/22 embolization of the right middle meningeal artery Patient discussed with Dr. March Transferring care to Internal medicine, appreciate management and oversight Right MMA embolization completed, from our standpoint he may resume antiplatelet , and/or anticoagulation and DVT ppx once procedures are completed. Pain control PRN RETIREMENT SALES CONSULTANT ASA 81 mg held Neurology stroke completing stroke work up -requesting ANSELMO, ordered Bowel program + Void PT/OT to eval-rehab following, anticipate placement need at discharge CT chest with primary lung mass likely metastatic disease, onc consulted -EBUS/bronchoscopy changed to 10/29. -PET pending Neurosurgery will sign off at this time, please call with questions. Neurosurgery follow up requested Please page [phone] with any questions. GABRIELLA Clifford Voalte me RIBUTOR OPERATOR * Dottie Aldridge APRN-NP - 10/29/2022 9:53 AM CST Oncology Consult Progress Note Name: Scot Bell Today's Date: 10/29/2022 Admission Date: 10/24/2022 LOS: 4 days Assessment/Plan: Principal Problem: SDH (subdural hematoma) Right Subdural Hematoma - acute on chronic, CT on admission concern for interval bleed but initially fou nd incidentally on CT during work up for essential tremor - presented with increased weakness and confusion - 10/25 CT Hrad: re demonstration of a small moderately sized subacute right GENERATOR ASSEMBLER territory infarct, stable size of right subdural hematoma - 10/25 MRI head with no evidence of intracranial metastatic disease - 10/28 IR Right MMA embolization with neurosurgery Lung Mass - long standing smoking history, 120 pack year - 10/26 CT chest: small right upper lobe mass 3.1 x 2.3 cm with moderate mediast inal and bilateral hilar LAD, nodularity within the lungs and pleura - plan for bronchoscopy/EBUS on 10/30 Plan - Noted plans for possible robotic bronchoscopy on 10/30 - we will follow any pa thology - Follow up results of PET Scan - scheduled for 10/30 - Will plan for medical oncology follow up at [facility] Patient discussed with Dr. Lemus. Subjective Scot Bell is a 82 y.o. male. Patient sitting up in chair. He has no acute co mplaints. He is alert and oriented but with some expressive aphasia. Anserwing y es or no questions appropriately. Daughter and son at the bedside. Discussed tom n of care to follow pathology and results of PET Scan. Review of Systems Constitutional: Positive for malaise/fatigue. Negative for fever. Cardiovascular: Negative for chest pain, irregular heartbeat and leg swelling. Respiratory: Negative for cough, shortness of breath and sputum production. Gastrointestinal: Negative for abdominal pain and change in bowel habit. Genitourinary: Negative for dysuria and hematuria. Neurological: Positive for weakness. Negative for headaches. Psychiatric/Behavioral: Negative for altered mental status. The patient is not n ervous/anxious. Medications Scheduled Meds:acetaminophen (TYLENOL) tablet 650 mg, 650 mg, Oral, Q6H while aw mone atorvastatin (LIPITOR) tablet 80 mg, 80 mg, Oral, QDAY docusate (COLACE) capsule 100 mg, 100 mg, Oral, BID fluticasone propionate (FLONASE) nasal spray 2 spray, 2 spray, Each Nostril, QDA Y lidocaine (LIDODERM) 5 % topical patch 1 patch, 1 patch, Topical, QDAY methocarbamoL (ROBAXIN) tablet 500 mg, 500 mg, Oral, BID metoprolol tartrate (LOPRESSOR) tablet 50 mg, 50 mg, Oral, BID milk of magnesia (CONC) oral suspension 10 mL, 10 mL, Oral, QDAY polyethylene glycol 3350 (MIRALAX) packet 17 g, 1 packet, Oral, QDAY senna/docusate (SENOKOT-S) tablet 1 tablet, 1 tablet, Oral, BID Continuous Infusions: PRN and Respiratory Meds:dextromethorphan/guaiFENesin (ROBITUSSIN-DM) oral syru p Q6H PRN, eucalyptus-menthoL Q2H PRN, hydrALAZINE Q6H PRN, ibuprofen Q6H PRN, l abetalol (NORMODYNE; TRANDATE) injection Q15 MIN PRN, nicotine (polacrilex) Q1H PRN, ondansetron (ZOFRAN) IV Q6H PRN, oxyCODONE Q4H PRN, sodium chloride PRN, tr aMADoL Q6H PRN Objective Vital Signs: Last Filed Vital Signs: 24 [place] r Range BP: 167/48 (10/29 730) Temp: 36.3 C (97.3 F) (10/29 730) Pulse: 57 (10/29 730) Respirations: 18 PER MINUTE (10/29 730) SpO2: 95 % (10/29 730) O2 Device: None (Room air) (10/29 730) O2 Liter Flow: 1 Lpm (10/28 1100) SpO2 Pulse: 64 (10/28 1115) BP: (96-167)/(48-93) Temp: [36.2 C (97.1 F)-36.6 C (97.8 F)] Pulse: [57-70] Respirations: [16 PER MINUTE-23 PER MINUTE] SpO2: [92 %-97 %] O2 Device: None (Room air) O2 Liter Flow: 1 Lpm Intensity Pain Scale (Self Report): 5 (10/29/22 0715) Vitals: 10/25/22 0902 Weight: 58.5 kg (129 lb) Intake/Output Summary: (Last 24 hours) Intake/Output Summary (Last 24 hours) at 10/29/2022 0953 Last data filed at 10/28/2022 2300 Gross per 24 hour Intake 800 ml Output 700 ml Net 100 ml Stool Occurrence: 0 Physical Exam General appearance: alert, cooperative and no distress Head: Normocephalic, atraumatic Lungs: non labored on RA Chest wall: symmetrical chest rise Heart: S1S2, normal rate Abdomen: soft non tender Extremities: extremities normal, atraumatic, no cyanosis or edema Neurologic: follows commands, slightly weaker on L side Pulses: radial and pedal 2+ and symmetric Skin: no rash Psych: appropriate mood and affect Drains/Lines: PIV Lab Review Hematology: Lab Results Component Value Date HGB 11.3 10/29/2022 HCT 33.2 10/29/2022 PLTCT 107 10/29/2022 WBC 4.5 10/29/2022 NEUT 71 10/29/2022 ANC 3.17 10/29/2022 ALC 0.56 10/29/2022 MAGNUS 16 10/29/2022 AMC 0.74 10/29/2022 ABC 0.02 10/29/2022 MCV 100.3 10/29/2022 MCHC 34.0 10/29/2022 MPV 9.5 10/29/2022 RDW 14.4 10/29/2022 , General Chemistry: Lab Results Component Value Date NA 141 10/29/2022 K 3.9 10/29/2022 CL 106 10/29/2022 GAP 11 10/29/2022 BUN 26 10/29/2022 CR 1.04 10/29/2022 GLU 90 10/29/2022 CA 8.7 10/29/2022 ALBUMIN 4.0 10/24/2022 MG 2.2 10/24/2022 TOTBILI 0.4 10/24/2022 and Enzymes: Lab Results Component Value Date AST 65 10/24/2022 ALT 63 10/24/2022 ALKPHOS 105 10/24/2022 Point of Care Testing (Last 24 hours) Glucose: 90 (10/29/22 0357) Radiology and other Diagnostics Review: Pertinent radiology reviewed. CT Chest 10/26: IMPRESSION 1. 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 2. Mild cardiomegaly with interstitial thickening and groundglass opacity throughout both lungs, most likely representing CHF. 3. Moderate mediastinal and bilateral hilar lymphadenopathy suspicious for metastatic disease. 4. Diffuse nodularity throughout both lungs and pleura concerning for metastatic disease. This could also be infectious. 5. Moderate emphysema and scattered areas of scarring. 6. Trace pleural effusions. 7. Small hypodense right renal lesion is indeterminate and may be a cyst. Ultrasound characterization is recommended. 8. Marked coronary artery calcification. CTA Head and Neck 10/25: IMPRESSION CTA head: 1. Redemonstration of a small-moderately sized subacute right GENERATOR ASSEMBLER territory infarct without evidence of hemorrhagic conversion. Associated localized right cerebral mass effect with stable asymmetric enlargement of the right lateral ventricular temporal horn. 2. Additional likely recent tiny right posterolateral cerebellar and small medial right frontal-cingulate infarcts. 3. Stable size of the right cerebral convexity mixed density subdural hematoma and associated intracranial mass effect with up to 0.5 cm of leftward midline shift. 4. Stable mild patchy cerebral white matter hypodensities, consistent with nonspecific white matter disease, with tiny chronic left cerebellar infarcts. 5. Intracranial atherosclerotic vascular disease resulting in multifocal luminal stenoses, most pronounced and of severe degree at the right supraclinoid ICA and distal left intracranial vertebral artery. Additional less pronounced stenoses are described above. No evidence of large vessel occlusion. CTA neck: 1. Atherosclerotic vascular disease resulting in a severe, likely near occlusive luminal stenosis of the left cervical vertebral origin. Additional scattered, mild and moderate atherosclerotic luminal stenoses involving the great vessels are described in detail above. No hemodynamically significant ICA stenosis by NASCET criteria. 2. Emphysema with an irregular, masslike right upper lobe opacity and patchy underlying setnxgexzxb-zlsw-ci-bud opacities throughout the visualized lungs. There is also relatively diffuse pulmonary septal thickening throughout the visualized lungs. Infectious-inflammatory pneumonia and potentially a component of underlying pulmonary edema could contribute to the more diffuse pulmonary findings, though, aforementioned dominant masslike right upper lobe opacity is suspect for neoplasm. CT chest is recommended to more completely evaluate pulmonary findings. 3. Multistation mediastinal and hilar lymphadenopathy. MRI Head 10/25: IMPRESSION 1. Redemonstration of multiple scattered recent subacute appearing supratentorial and infratentorial infarcts (presumed embolic etiology) with a dominant small to moderate-sized right GENERATOR ASSEMBLER territory infarct. Unchanged associated right occipitotemporal mass effect. No evidence of hemorrhagic conversion of infarct. 2. Stable mixed signal intensity right cerebral convexity subdural hematoma measuring up to 1.2 cm in depth. 3. Persistent associated intracranial mass effect with mild leftward midline shift measuring up to 0.5 cm. 4. Mild underlying cerebral volume loss and patchy cerebral white matter FLAIR hyperintensities, likely due to chronic microvascular ischemic changes, with tiny chronic bilateral cerebellar infarcts and a small chronic area of left posterolateral temporal encephalomalacia gliosis. 5. Small geographic T1 hypointense marrow lesion involving the lower clivus, which is indeterminate though in the setting of pulmonary findings on same-day CTA head-neck could reflect an osseous metastasis. GABRIELLA Patel On Voalte Pager # [phone] Total Time Today was 25 minutes in the following activities: Preparing to see th e patient, Obtaining and/or reviewing separately obtained history, Performing a medically appropriate examination and/or evaluation, Counseling and educating th e patient/family/caregiver, Documenting clinical information in the electronic o r other health record and Care coordination (not separately reported) RIBUTOR OPERATOR * Hema Ashford MD - 10/28/2022 5:11 PM CST Pulmonary Progress Note Name: Scot Bell Admission Date: 10/24/2022 Impression: Scot Bell is a 82 y.o. male with a history of HLD, HTN, PAD status post terrell nting, CAD status post PCI, chronic low back pain, essential tremor, and tobacco misuse who was admitted with acute on chronic right subdural hemorrhage with griffin bacute CVA. As part of his neurologic work-up, a right upper lobe mass with med iastinal and hilar lymphadenopathy was discovered. Pulmonary consult for bronch oscopy. He is [id number] smoker; currently smoking 1/2 pack/day. On Imaging has Righ t upper lobe mass and mediastinal/hilar lymphadenopathy concerning for malignanc y, with emphysematous changes, and diffuse small nodules noticed on CT chest. Patient will need tissue biopsy to rule out underlying malignancy, or parenchyma l lung disease. PET scan is ordered and will be done on Friday Recommendation: Oncology consulted, appreciate recommendations Follow-up PET scan results Discussed with IP team, we will schedule patient for an EBUS with robotic assist ed bronchoscopy with biops first available. Tentatively on Friday. Check platelets, and INR daily Encouraged to stop smoking; offer nicotine replacement therapy if needed Patient seen and discussed with Dr. Garvey. Please see their attestation for an y updates to the plan. Hema Ashford MD Pulmonary & Critical Care Medicine Fellow, PGY-4 Available on Voalte _ Subjective Patient is resting in bed today after IR embolization. No new symptoms. Review of Systems: 5 point ROS negative unless otherwise mentioned in HPI. Medications Scheduled Meds:acetaminophen (TYLENOL) tablet 650 mg, 650 mg, Oral, Q6H while aw mone atorvastatin (LIPITOR) tablet 80 mg, 80 mg, Oral, QDAY docusate (COLACE) capsule 100 mg, 100 mg, Oral, BID fluticasone propionate (FLONASE) nasal spray 2 spray, 2 spray, Each Nostril, QDA Y lidocaine (LIDODERM) 5 % topical patch 1 patch, 1 patch, Topical, QDAY methocarbamoL (ROBAXIN) tablet 500 mg, 500 mg, Oral, BID metoprolol tartrate (LOPRESSOR) tablet 50 mg, 50 mg, Oral, BID milk of magnesia (CONC) oral suspension 10 mL, 10 mL, Oral, QDAY polyethylene glycol 3350 (MIRALAX) packet 17 g, 1 packet, Oral, QDAY senna/docusate (SENOKOT-S) tablet 1 tablet, 1 tablet, Oral, BID Continuous Infusions: PRN and Respiratory Meds:dextromethorphan/guaiFENesin (ROBITUSSIN-DM) oral syru p Q6H PRN, eucalyptus-menthoL Q2H PRN, hydrALAZINE Q6H PRN, ibuprofen Q6H PRN, l abetalol (NORMODYNE; TRANDATE) injection Q15 MIN PRN, nicotine (polacrilex) Q1H PRN, ondansetron (ZOFRAN) IV Q6H PRN, oxyCODONE Q4H PRN, sodium chloride PRN, tr aMADoL Q6H PRN Objective: Vital Signs: Last Filed Vital Signs: 24 [place] Range BP: 130/56 (10/28 1600) Temp: 36.6 C (97.8 F) (10/28 1600) Pulse: 59 (10/28 1600) Respirations: 18 PER MINUTE (10/28 1600) SpO2: 97 % (10/28 1600) O2 Device: None (Room air) (10/28 1600) O2 Liter Flow: 1 Lpm (10/28 1100) SpO2 Pulse: 64 (10/28 1115) BP: (96-130)/(49-93) Temp: [36.2 C (97.1 F)-36.6 C (97.9 F)] Pulse: [56-70] Respirations: [16 PER MINUTE-23 PER MINUTE] SpO2: [92 %-97 %] O2 Device: None (Room air) O2 Liter Flow: 1 Lpm Intensity Pain Scale (Self Report): 3 (10/27/22 2238) Vitals: 10/25/22 0902 Weight: 58.5 kg (129 lb) Physical Exam GENERAL: Well-developed, Alert and oriented. In no apparent distress. HEENT: Normocephalic and atraumatic. No scleral icterus. Posterior pharynx clear of any exudate or lesions. LUNGS: CTAB, no accessory muscle use, normal WOB HEART: Regular rate. Regular rhythm. No murmur. ABDOMEN: Soft. Non-tender. Non-distended. EXTREMITIES: No edema. No clubbing. No cyanosis. NEUROLOGIC: Cranial nerves II-XII are grossly intact. PSYCHIATRIC: Normal mood and affect. SKIN: No rashes observed. Lab Review Pertinent labs reviewed. Radiology and other Diagnostics Review: Pertinent radiology reviewed. RIBUTOR OPERATOR Associated attestation - Poncho Garvey MD - 10/28/2022 9:10 PM DISTRIBUTOR OPERATOR ATTESTATION I personally performed the torres portions of the E/M visit, discussed case with re sident and concur with resident documentation of history, physical exam, assessm ent, and treatment plan unless otherwise noted. Would like to attempt bronchosco pic diagnosis tomorrow, but it will require the robotic bronchoscope, and the sc hedule is full tomorrow. Will schedule for 10/30. Staff name: Poncho Garvey MD Date: 10/28/2022 * Chris Wallis MD - 10/28/2022 3:40 PM CST Neurology Brief Update Note Admission Date: 10/24/2022 LOS: 3 days Assessment/Plan: Principal Problem: SDH (subdural hematoma) Scot Bell is a 82 y.o. male with pertinent PMHx of chronic subdural hematoma , essential tremor, HTN, PAD, that presented on 10/24/[address] find ings concerning for possible stroke. Imaging/Diagnostic Studies: CT Head from outside facility (radiology report available in Media tab): "There is a right subdural hemorrhage that may be a combination of acute and chr onic bleeding. There is some associated midline shift. Areas of low density in the brain are probably regions of his recent ischemic injury. Attempts to acqu don a prior comparison study were unsuccessful. The patient reportedly has chris el to a different facility for evaluation where he has been treated previously." CT Head 10/24/22: 1. Development of a moderate-sized hypodensity within the posterior medial occipitotemporal lobe likely representing a evolving late subacute right GENERATOR ASSEMBLER infarct. 2. New hypodensities within the mixed density subdural hematoma along the right cerebral convexity, likely represent interval bleeding. The subdural hematoma is stable in size producing stable mass effect resulting in 6 mm of leftward midline shift. No descending herniation or hydrocephalus. 3. Stable mild patchy supratentorial white matter hypodensities, likely sequelae of chronic microvascular ischemic change. 4. Tiny low-density is now present along the lateral right cerebellum likely interval small lacunar type infarct. CTA head and neck 10/25/22: CTA head: 1. Redemonstration of a small-moderately sized subacute right GENERATOR ASSEMBLER territory infarct without evidence of hemorrhagic conversion. Associated localized right cerebral mass effect with stable asymmetric enlargement of the right lateral ventricular temporal horn. 2. Additional likely recent tiny right posterolateral cerebellar and small medial right frontal-cingulate infarcts. 3. Stable size of the right cerebral convexity mixed density subdural hematoma and associated intracranial mass effect with up to 0.5 cm of leftward midline shift. 4. Stable mild patchy cerebral white matter hypodensities, consistent with nonspecific white matter disease, with tiny chronic left cerebellar infarcts. 5. Intracranial atherosclerotic vascular disease resulting in multifocal luminal stenoses, most pronounced and of severe degree at the right supraclinoid ICA and distal left intracranial vertebral artery. Additional less pronounced stenoses are described above. No evidence of large vessel occlusion. CTA neck: 1. Atherosclerotic vascular disease resulting in a severe, likely near occlusive luminal stenosis of the left cervical vertebral origin. Additional scattered, mild and moderate atherosclerotic luminal stenoses involving the great vessels are described in detail above. No hemodynamically significant ICA stenosis by NASCET criteria. 2. Emphysema with an irregular, masslike right upper lobe opacity and patchy underlying wgktbndunzd-gdgh-xn-bud opacities throughout the visualized lungs. There is also relatively diffuse pulmonary septal thickening throughout the visualized lungs. Infectious-inflammatory pneumonia and potentially a component of underlying pulmonary edema could contribute to the more diffuse pulmonary findings, though, aforementioned dominant masslike right upper lobe opacity is suspect for neoplasm. CT chest is recommended to more completely evaluate pulmonary findings. 3. Multistation mediastinal and hilar lymphadenopathy. MRI head without contrast: 1. Redemonstration of multiple scattered recent subacute appearing supratentorial and infratentorial infarcts (presumed embolic etiology) with a dominant small to moderate-sized right GENERATOR ASSEMBLER territory infarct. Unchanged associated right occipitotemporal mass effect. No evidence of hemorrhagic conversion of infarct. 2. Stable mixed signal intensity right cerebral convexity subdural hematoma measuring up to 1.2 cm in depth. 3. Persistent associated intracranial mass effect with mild leftward midline shift measuring up to 0.5 cm. 4. Mild underlying cerebral volume loss and patchy cerebral white matter FLAIR hyperintensities, likely due to chronic microvascular ischemic changes, with tiny chronic bilateral cerebellar infarcts and a small chronic area of left posterolateral temporal encephalomalacia gliosis. 5. Small geographic T1 hypointense marrow lesion involving the lower clivus, which is indeterminate though in the setting of pulmonary findings on same-day CTA head-neck could reflect an osseous metastasis. TTE : EF 82%. Bioprosthetic arctic valve. Does not mention shunting or PFO EEG: This abnormal >1 hour EEG is indicative of a moderate encephalopathy. No epileptiform signs are seen. Repeat EEG on 10/27: indicative of a mild to moderate encephalopathy. No epilept iform signs are seen. Compared to EEG from 10/26/22 - no significant changes. LABS: TC 115, TG 190, HDL 25, LDL 62, A1c 5.7% Problem List: 1) Acute on chronic right subdural hemorrhage 2) Subacute Right GENERATOR ASSEMBLER/RODOLFO stroke 3) Essential tremor 4) 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 5) Mass-like RUL Opacity 6) Tree-in-bud opacities 7) Mediastinal and Hilar LAD 8)Acute encephalopathy- toxic metabolic DDx: Etiology of stroke most likely embolic of undetermined source. Probably mal ignancy related due to RUL mass, B hilar/mediastinal LAD vs cardioembolic Overnight on 10/27, patient was stroke activated for worsening confusion. Though t by night resident to be toxic metabolic due to opiates. Agree with this impres chapincito. Additionally, patient had embolization of R MMA this morning. RECOMMENDATIONS: > Recommend ANSELMO to rule out PFO. Given the history of subdural hematoma it would be difficult to weigh when AC could be resumed. If PFO is detected, would recommend closure to lower risk of further strokes. > Not a stroke intervention candidate given age indeterminate onset of symptoms (at least 2 to 3 weeks) and presence of chronic subdural hemorrhage > Telemetry to monitor for arrhythmia > Antiplatelet therapy: hold ASA for now in setting of subdural hematoma, but will recommend starting when safe from Neurosurgery standpoint > PT/OT/BUILDING TRADES INSTRUCTOR consult eval and treat > Rehab consult for assessment of post stroke care > Recommend limiting narcotics for pain relief as much as tolerable for patient. > Consider changing methocarbamol to baclofen/cyclobenzaprine Patient seen and discussed with Dr. Hayes, who will attest the acute stroke response note from overnight. Chris Wallis MD PGY-2 Neurology Resident Available on Voalte RIBUTOR OPERATOR Associated attestation - Juan J Hayes MD - 10/29/2022 11:07 PM DISTRIBUTOR OPERATOR ATTESTATION: I performed a history and physical examination of the patient and d iscussed the patient management. I reviewed Dr. Wallis's note and agree with the documented findings and plan unless otherwise noted below. * Meena Davies OT - 10/28/2022 2:08 PM CST OCCUPATIONAL THERAPY PROGRESS NOTE Name: Scot Bell : 1940 Age: 82 y.o. Admission Date: 10/24/2022 LOS: 3 days Date of Service: 10/28/2022 Mobility Patient Turn/Position: Chair;Self Progressive Mobility Level: Walk in room Distance Walked (feet): 20 ft Level of Assistance: Assist X2 Assistive Device: Hand Held Activity Limited By: Weakness Subjective Pertinent Dx per Physician: Scot Bell is a 82 y.o. 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 Precautions: Standard;Falls Pain / Complaints: Patient agrees to participate in therapy;Patient demonstrates nonverbal signs of pain Objective Psychosocial Status: Willing and Cooperative to Participate Persons Present: Physical Therapist;Son Home Living Type of Home: House Home Layout: One Level;Stairs to Enter w/o Rails (2 TERRELL) Bathroom Shower / Tub: Tub/Shower Unit Bathroom Toilet: Standard Bathroom Equipment: Shower Chair Home Equipment: Cane;Walker;Wheelchair-manual Prior Function Level Of [place]: Independent with ADLs and functional transfers;Needed ass istance with homemaking Lives With: Family (two sons) Receives Help From: Family Other Function Comments: Per patient, he was ambulating independently and able t o manage ADLs. Sons help with IADLs. Patient has had tremors so typically eats f jabier food. He has tried adaptive utensils but reported they have not worked for him Vision Current Vision: Wears Glasses Only for Reading Tracking: Dec Smoothness of Horizontal Tracking;Dec Smoothness of Vertical Track ing Comment: Poor scanning in all planes, unable to track objects ADL Toileting" Pt sat on the toilet and was able to pee: ADL Mobility Bed Mobility: Supine to Sit: Minimal assist Transfer: Assistance Level: Minimal assist;x2 people Transfer: Assistive Device: Hand hold assist Transfer: Type of Assistance: For balance;Requires extra time (vision and initia tion) Gait Distance: 20 feet Gait: Assistance Level: Minimal assist;x2 people Gait: Assistive Device: Hand hold assist Activity Tolerance Endurance: 2/5 Tolerates 10-20 Minutes Exercise w/Multiple Rests Cognition Overall Cognitive Status: Impaired Cognition Comment: answered questions and conversational, patient was fatigued a nd did some decreased awareness of his deficits UE PROM ROM Comments: Moderate tremor in both hands Sensory Proprioception: L UE Decreased/Impaired UE Strength / Tone Strength Position Assessed: Seated R UE Strength: WFL L UE Strength: WFL R LE Strength: WFL (4/5) L LE Strength: WFL (4-/5) Strength Comments: both R and L shoulder strength the same but poor awarness and proprioception of L wrist and hands. L wrist/hand weaker than R side Assessment Assessment: Decreased ADL Status;Decreased UE ROM;Decreased UE Strength;Decrease d Safe/Judg during ADL;Decreased Cognition;Decreased Endurance;Visual Deficit;De creased Fine Motor Coordination;Decreased Self-Care Trans Prognosis: w/Cont OT s/p Acute Discharge AM-PAC 6 Clicks Daily Activity Inpatient Putting on and taking off regular lower body clothes: A Lot Bathing (Including washing, rinsing, drying): A Lot Toileting, which includes using toilet, bedpan, or urinal: A Lot Putting on and taking off regular upper body clothing: A Little Taking care of personal grooming such as brushing teeth: A Little Eating meals: A Little Daily Activity Raw Score: 15 Standardized (T-scale) Score: 34.69 Plan Progress: Progressing Toward Goals;Improving as Expected OT Frequency: 5x/week OT Plan for Next Visit: LUE strength, L sided attention, grooming standing, func tional transfers, Ax1 to chair, Ax2 to progress ambulation ADL Goals Patient Will Perform All ADL's: w/ Minimal Assist Functional Transfer Goals Pt Will Perform All Functional Transfers: Minimum Assist Vision Goals Pt Will Scan Environment: 100% of the time, w/ Minimal Cues OT Discharge Recommendations Recommendation: Inpatient setting Patient Currently Requires Physical Assist With: All mobility;All personal care ADLs;All home functioning ADLs Therapist: Meena Davies OT Date: 10/28/2022 RIBUTOR OPERATOR * Shelly Ceja, PT - 10/28/2022 1:20 PM CST PHYSICAL THERAPY RE-ASSESSMENT Name: Scot Bell : 1940 Age: 82 y.o. Admission Date: 10/24/2022 LOS: 3 days Date of Service: 10/28/2022 Mobility Patient Turn/Position: Chair;Self Progressive Mobility Level: Walk in room Distance Walked (feet): 20 ft Level of Assistance: Assist X2 Assistive Device: Hand Held Activity Limited By: Weakness;Fatigue Subjective Significant hospital events: 82 y.o. 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 The patient has baseline mixed tremor symptoms in the BUE. He is otherwise neurologically in tact. CT Head from OSH was reviewed which demonstrated acute on chronic R convexity SDH with 4-5 mm midline shift. S/p MMA Embo 10/28 Mental / Cognitive Status: Alert;Oriented;Cooperative;Follows Commands (Hard of hearing) Persons Present: Occupational Therapist;Family Pain: Patient complains of pain;Patient does not rate pain Pain Location: Headache Pain Description: Aching Pain Interventions: Patient agrees to participate in therapy;Patient assisted in to position of comfort Comments: L visual field cut, however noted additional visual impairments on Comments: Difficulty tracking to both R and L side this date. Only able to ident leroy objects in direct midline. Ambulation Assist: Independent Mobility in Community without Device Patient Owned Equipment: Roller Walker;Manual Wheelchair;Single Point Cane Home Situation: Lives with Family (2 sons) Type of Home: House Entry Stairs: 1-2 Stairs;Rail on 1 Side (2 steps to enter) In-Home Stairs: Able to Live on One Level Comments: Patient reports that he was independent with mobility and most ADL, bu t has difficulty with feeding himself due to tremor ROM R LE ROM: WFL L LE ROM: WFL ROM Comments: Moderate tremor in both hands Strength Strength Position Assessed: Seated R LE Strength: WFL (4/5) L LE Strength: WFL (4-/5) R UE Strength: WFL L UE Strength: WFL Strength Comments: both R and L shoulder strength the same but poor awarness and proprioception of L wrist and hands. L wrist/hand weaker than R side Posture/Neurological Head Control: Independent Posture: Forward head;Rounded shoulders Bed Mobility/Transfer Bed Mobility: Supine to Sit: Minimal Assist;Assist with Trunk;Assist with B LE Comments: Tolerated sitting edge of bed with minimal assist, L trunk bernadette improv ed this date Transfer Type: Sit to Stand Transfer: Assistance Level: To/From;Bed;Minimal Assist;x2 People Transfer: Assistive Device: Hand Hold Assist Transfers: Type Of Assistance: Knees(s) Blocked;For Balance;For Strength Deficit ;For Safety Considerations End Of Activity Status: Up in Chair;Nursing Notified;Instructed Patient to Reque st Assist with Mobility;Instructed Patient to Use Call Light (chair alarm activa toby) Balance Sitting Balance: Static Sitting Balance;Dynamic Sitting Balance;No UE Support;Mi nimal Assist;Moderate Assist Standing Balance: Static Standing Balance;Dynamic Standing Balance;2 UE support; Minimal Assist;x2 People Gait Gait Distance: 20 feet Gait: Assistance Level: Minimal Assist;x2 People Gait: Assistive Device: Hand Hold Assist Gait: Descriptors: Pace: Slow;Variable step length;Loss of balance Comments: Patient ambulated 20 feet with minimal assist x 2. Noted occasional hy perextension of L LE. Imporved midline posture, but unable to scan to R or L jerald e during gait. Activity Limited By: Complaint of Fatigue;Weakness Activity/Exercise Sit Edge Of Bed: 5 minutes Sit Edge Of Bed Assist: Minimal Assist Stand At Bedside : 2 minutes Stand At Bedside Assist: Minimal Assist;x2 People Education Persons Educated: Patient Patient Barriers To Learning: Decreased Hearing Interventions: Repetition of Instructions;Louder Voice Required Teaching Methods: Verbal Instruction Patient Response: Verbalized Understanding;More Instruction Required Topics: Plan/Goals of PT Interventions;Use of Assistive Device/Orthosis;Mobility Progression;Safety Awareness;Up with Assist Only;Importance of Increasing Activ ity;Recommend Continued Therapy Assessment/Progress Impaired Mobility Due To: Decreased Strength;Pain;Impaired Balance;Decreased Act ivity Tolerance;Medical Status Limitation Assessment/Progress: Should Improve w/ Continued PT Comments: Noted increased word finding difficulty and both L and R visual defici ts. Rn and primary team notified. AM-PAC 6 Clicks Basic Mobility Inpatient Turning from your back to your side while in a flat bed without using bed rails: A Little Moving from lying on your back to sitting on the side of a flat bed without usin g bedrails : A Little Moving to and from a bed to a chair (including a wheelchair): A Lot Standing up from a chair using your arms (e.g. wheelchair, or bedside chair): A Lot To walk in hospital room: A Lot Climbing 3-5 steps with a railing: Total Basic Mobility Inpatient Raw Score: 13 Standardized (T-scale) Score: 33.99 Goals Goal Formulation: With Patient Time For Goal Achievement: 5 days, To, 7 days Patient Will Go Supine To/From Sit: Independently Patient Will Transfer Sit to Stand: Independently Patient Will Ambulate: Greater than 200 Feet, w/ No Device, w/ Stand By Assist Patient Will Go Up / Down Stairs: 1-2 Stairs, w/ Stand By Assist Plan Treatment Interventions: Mobility Training;Strengthening;Balance Activities;Endu marin Training;Neuromuscular Reeducation Plan Frequency: 5 Days per Week PT Plan for Next Visit: Work on safety and independence with transfers. Increase ambulation distance. PT Discharge Recommendations Recommendation: Inpatient setting;Recommend rehab medicine consult Patient Currently Requires Physical Assist With: All mobility Therapist Shelly Ceja, PT Date 10/28/2022 RIBUTOR OPERATOR * Isamar Newell, ANGELITA-MERRICK - 10/28/2022 12:26 PM CST Neurosurgery Progress Note Admission Date: 10/24/2022 LOS: 3 days S: Back from MMA embolization, went well. Experiencing some urinary retention fo llowing procedure. Family at bedside, updated that Neurosurgery is done with int ervention at this time and that the focus needs to be on his newly found lung ma ss. Family reports no bowel movement since prior to admission O: Vital Signs: 24 Hour Range BP: (96-135)/(49-93) Temp: [36.2 C (97.1 F)-37.1 C (98.7 F)] Pulse: [56-70] Respirations: [16 PER MINUTE-23 PER MINUTE] SpO2: [92 %-97 %] O2 Device: None (Room air) O2 Liter Flow: 1 Lpm Physical Exam: Sitting up Engaged in exam Follows commands Oriented to self and type of place Dressing on right wrist A/P: 82 y.o. male Principal Problem: SDH (subdural hematoma) Transferring care to Internal medicine, appreciate management and oversight Right MMA embolization completed, from our standpoint he may resume antiplatelet , and/or anticoagulation and DVT ppx once procedures are completed. NPO for procedures Regular diet resumed Oxy, Tylenol and Robaxin for back discomfort, aqua k-pad, lidoderm patches. 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 -PET pending We will follow and see again tomorrow morning to eval after MMA and check access sight. Prophylaxis: A) GI: no PPI B) Lines: No C) Urinary Catheter: No D) Antibiotic Usage: No E) VTE: Mechanical prophylaxis; Sequential compression device DVT ppx being hel d for procedures. F) Restraints: Patient assessed for need for restraints. Please page [phone] with any questions. GABRIELLA Hernandes Voalte me RIBUTOR OPERATOR * Shelly Ceja, PT - 10/28/2022 11:30 AM CST PHYSICAL THERAPY NOTE Name: Scot Bell : 1940 Age: 82 y.o. Admission Date: 10/24/2022 LOS: 3 days Date of Service: 10/28/2022 Patient was unavailable for physical and occupational therapy this AM, off unit for MMA Embo. Therapies will continue to follow and provide intervention as ind icated. Therapist: Shelly Ceja, PT Date: 10/28/2022 RIBUTOR OPERATOR * Nina Sigala RN - 10/28/2022 10:18 AM CST has signed the patient out of anesthesia. RIBUTOR OPERATOR * Chary Smith MD - 10/28/2022 10:14 AM CST General Progress Note Name: Scot Bell Today's Date: 10/28/2022 Admission Date: 10/24/2022 LOS: 3 days Assessment/Plan: Principal Problem: SDH (subdural hematoma) Recommendations: - Limit opiate pain relief as able, consider holding robaxin or changing to PRN - Serial bladder scan to rule out urinary retention follow MMA - Continue bowel regimen, close monitoring for BM - AC/DVT ppx when acceptable per NSGY, okay to resume following procedure comple tion - Accepted to medicine laura as primary Assessment/Plan: Scot Bell is a 82 y.o. 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 Medicine consulted for management of multiple co-morbidities as well as work up of new possible lung mass Acute on chronic R subdural hemorrhage - found incidentally during outpatient evaluation for Focused US for essential t remor. Repeat CT at admission with concern for interval bleed, mixed blood produ cts on scan > Neurosurgery managing, no acute surgical intervention > IR performing R MMA embolization on 10/28 due to anticipated need for AC Subacute R GENERATOR ASSEMBLER/RODOLFO stroke additional tiny infarcts in BL cerebral and cerebellar regions (likely embolic) 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 Acute toxic metabolic encephalopathy - CT head w/ late subacute right medial occipitotemporal stroke and small lacuna r type stroke in the lateral right cerebellum. US showed Atherosclerotic disease resulting in a severe, likely near occlusive luminal stenosis of the left cervi milagro vertebral origin. - stroke work up initiated by neurology - defer need for vascular intervention to neuro/neurosurgery - patient stroke actived on 10/27 for increased confusion NIHSS 6 (mainly for ac [place] confusion; inability to answer orientation questions, follow commands, unabl e to comprehend; answer appropriately, inconsistent response to visual threat. A t baseline patient has LUQ visual field deficit)-- suspect stroke mimic - 65 minute EEG abnormal >1 hour EEG is indicative of a mild to moderate encephalopathy. No epileptiform signs are seen. > Neurology is consulted, appreciate recs - ANSELMO to rule out PFO, closure if PFO detected > RETIREMENT SALES CONSULTANT statin > ASA once able from a SDH standpoint > Rehab medicine consulted, IRF vs. SNF on discharge > Delirium precautions, limit opiates and anticholinergics as able Mass-like RUL opacity, concern for primary neoplasm Mediastinal and Hilar LAD, concern for metastatic disease Tree-in-bud opacities Nicotine dependence - smokes 1/2 PPD but has 120 pack year history - Patient asymptomatic from an infectious standpoint. He has chronic cough produ ctive of clear sputum that is unchanged. He is not meeting SIRS criteria. Conc erning for underlying malignancy. He has had weight loss that was previously at tributed to his essential tremor and inability to eat but no other constitutiona l symptoms. - 10/26 CT chest with contrast 1. 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 2. Mild c ardiomegaly with interstitial thickening and groundglass opacity throughout both lungs, most likely representing CHF. 3. Moderate mediastinal and bilateral hi lar lymphadenopathy suspicious for metastatic disease. 4. Diffuse nodularity t hroughout both lungs and pleura concerning for metastatic disease. This could al so be infectious. 5. Moderate emphysema and scattered areas of scarring. 6. Trace pleural effusions. 7. Small hypodense right renal lesion is indeterminat e and may be a cyst. Ultrasound characterization is recommended. 8. Marked cor onary artery calcification. > Pulmonary consulted and following, EBUS and navigational bronchoscopy today > Oncology consulted, appreciate recs - PET scan pending > No antibiotics indicated at this time > Continue robitussin PRN, cough drops PRN, > PRN NRT (lozenges) and encouraged smoking cessation Macrocytosis with minimal anemia Thrombocytopenia Lymphopenia - mild anemia but macrocytic. Also with mild thrombocytopenia, lymphopenia. Po ssibly nutritional - Iron studies with mild iron deficiency - B12 and folate replete > Continue to monitor Urinary retention Hematuria - noted on UA - 10/28 possible urinary retention > Bladder scan to assess for urinary retention > Repeat UA as an outpatient. If hematuria persists, will need urology referral Weight loss - Secondary to essential tremor versus underlying malignancy. > Balancing Machine Set Up Worker consult for nutritional assessment s/p TAVR several years ago Hx of HTN, HLD, PAD - hx of Stenting/balloon angioplasty to RLE. Has chronic claudication symptoms - CT chest with marked coronary calcifications > Continue RETIREMENT SALES CONSULTANT statin and BB > Holding ASA at this time Chronic LBP - hx of multiple steroid injections s/p surgical intervention > Continue scheduled APAP 1000mg TID with LFT monitoring > Continue lidocaine patch to back > Has robaxin, tramadol, ibuprofen and oxycodone per primary-- daughter states oxycodone has caused confusion in the past > Scheduled bowel regimen is ordered, monitor for BM > Can consider interventional anesthesia if he desires intervention, but sounds as if they have not been effective for him in the past > Delirium precautions CAD with hx of PCI - Per reports had staged PCI ~ 3 years ago. Was taking full dose ASA multiple ti mes per day for pain, off since Nov due to SDH > Continue BB, statin > Holding ASA at this time Essential Tremor - plan was for focused ultrasound but work up revealed incidental SDH > Defer to outpatient neurosrugery > PT/OT consulted Chary Smith MD Thank you for the consult, we will continue to follow. Please direct initial questions to primary team Medicine Consult team can be reached at pager [phone] Subjective Scot Bell is a 82 y.o. male. Patient seen at bedside following MMA embolizat ion with daughter in post op. He is having back pain. tesha states mental sta tus has not recovered since decompensation last night. He struggles to name her, gives his name instead when asked who she is. She states he had had this trouble with oxycodone in the past. He had been having so much back pain. He received several doses yesterday and last dose at 639 am. He reports the sensation of nee ding to urinate but was not able to given command and urinal in post op. He has been coughing a little. No BM charted to date. Daughter does not think he's had one. Review of Systems: Unable to obtain full ROS due to patient condition + needs to urinate, was unable to when given urinal Medications Scheduled Meds:[JAN Hold] acetaminophen (TYLENOL) tablet 650 mg, 650 mg, Oral, Q 6H while awake [JAN Hold] atorvastatin (LIPITOR) tablet 80 mg, 80 mg, Oral, QDAY [MAR Hold] docusate (COLACE) capsule 100 mg, 100 mg, Oral, BID [JAN Hold] fluticasone propionate (FLONASE) nasal spray 2 spray, 2 spray, Each N ostril, QDAY lidocaine (LIDODERM) 5 % topical patch 1 patch, 1 patch, Topical, ONCE [JAN Hold] lidocaine (LIDODERM) 5 % topical patch 1 patch, 1 patch, Topical, QDA Y [JAN Hold] methocarbamoL (ROBAXIN) tablet 500 mg, 500 mg, Oral, BID metoprolol tartrate (LOPRESSOR) tablet 50 mg, 50 mg, Oral, BID [MAR Hold] milk of magnesia (CONC) oral suspension 10 mL, 10 mL, Oral, QDAY [MAR Hold] senna/docusate (SENOKOT-S) tablet 1 tablet, 1 tablet, Oral, BID Continuous Infusions: PRN and Respiratory Meds:[JAN Hold] dextromethorphan/guaiFENesin (ROBITUSSIN-DM ) oral syrup Q6H PRN, [JAN Hold] eucalyptus-menthoL Q2H PRN, hydrALAZINE Q6H PRN , [JAN Hold] ibuprofen Q6H PRN, labetalol (NORMODYNE; TRANDATE) injection Q15 PR N PRN, [JAN Hold] nicotine (polacrilex) Q1H PRN, [JAN Hold] ondansetron (ZOFRAN) IV Q6H PRN, [MAR Hold] oxyCODONE Q4H PRN, [JAN Hold] sodium chloride PRN, [JAN Hold] traMADoL Q6H PRN Objective: Vital Signs: Last Filed Vital Signs: 24 [place] Range BP: 101/77 (10/28 1000) Temp: 36.2 C (97.1 F) (10/28 1000) Pulse: 70 (10/28 1000) Respirations: 20 PER MINUTE (10/28 1000) SpO2: 97 % (10/28 1000) O2 Device: None (Room air) (10/28 1000) O2 Liter Flow: 6 Lpm (10/28 0958) SpO2 Pulse: 71 (10/28 1000) BP: (100-135)/(50-81) Temp: [36.2 C (97.1 F)-37.1 C (98.7 F)] Pulse: [56-70] Respirations: [16 PER MINUTE-21 PER MINUTE] SpO2: [93 %-97 %] O2 Device: None (Room air) O2 Liter Flow: 6 Lpm Intensity Pain Scale (Self Report): 3 (10/27/22 2238) Vitals: 10/25/22 0902 Weight: 58.5 kg (129 lb) Intake/Output Summary: (Last 24 hours) Intake/Output Summary (Last 24 hours) at 10/28/2022 1014 Last data filed at 10/28/2022 0954 Gross per 24 hour Intake 1140 ml Output 440 ml Net 700 ml Stool Occurrence: 0 Physical Exam General: Alert, thin elderly male appears stated age, in NAD; daughter at bedsid e. Head: Normocephalic, without obvious abnormality, atraumatic Eyes: Does not follow commands for EOM testing, pupils are equal. Normal conjunc tiva, non-icteric sclera Oral mucosa is very dry Neck: No JVD Lungs: Clear to auscultation bilaterally, non-labored on RA Heart: Regular rate and rhythm, no murmur, no peripheral edema. R radial access site dressing c/d/i Abdomen: Soft, non-tender. Bowel sounds hyperactive Skin: No visible rashes or lesions Neurologic: A&Ox self, daughter with prompting. Cannot name pen or stethoscope. Squeezes hands on command, moves feet on command. Cannot repeat no ifs/ands/buts. Underproductive of speech. Facial features symmetric, facial sensation intact. Hearing intact. Moves all extremities without difficulty. Tremor worsened by action. Psych: Unable to assess Lab Review 24-hour labs: Results for orders placed or performed during the hospital encounter of 10/24/22 (from the past 24 hour(s)) CBC Collection Time: 10/27/22 7:58 PM Result Value Ref Range White Blood Cells 5.8 4.5 - 11.0 K/UL RBC 3.81 (L) 4.4 - 5.5 M/UL Hemoglobin 12.8 (L) 13.5 - 16.5 GM/DL Hematocrit 38.1 (L) 40 - 50 % MCV 100.0 80 - 100 FL MCH 33.7 26 - 34 PG MCHC 33.7 32.0 - 36.0 G/DL RDW 14.3 11 - 15 % Platelet Count 97 (L) 150 - 400 K/UL MPV 9.3 7 - 11 FL BASIC METABOLIC PANEL Collection Time: 10/27/22 8:55 PM Result Value Ref Range Sodium 139 137 - 147 MMOL/L Potassium 3.9 3.5 - 5.1 MMOL/L Chloride 102 98 - 110 MMOL/L CO2 26 21 - 30 MMOL/L Anion Gap 11 3 - 12 Glucose 115 (H) 70 - 100 MG/DL Blood Urea Nitrogen 26 (H) 7 - 25 MG/DL Creatinine 1.11 0.4 - 1.24 MG/DL Calcium 8.7 8.5 - 10.6 MG/DL eGFR >60 >60 mL/min CBC Collection Time: 10/27/22 8:55 PM Result Value Ref Range White Blood Cells 5.9 4.5 - 11.0 K/UL RBC 3.76 (L) 4.4 - 5.5 M/UL Hemoglobin 12.7 (L) 13.5 - 16.5 GM/DL Hematocrit 37.0 (L) 40 - 50 % MCV 98.5 80 - 100 FL MCH 33.8 26 - 34 PG MCHC 34.3 32.0 - 36.0 G/DL RDW 14.4 11 - 15 % Platelet Count 100 (L) 150 - 400 K/UL MPV 9.1 7 - 11 FL Point of Care Testing (Last 24 hours) Glucose: (!) 115 (10/27/222054) Radiology and other Diagnostics Review: Pertinent radiology reviewed. Chary Smith MD RIBUTOR OPERATOR * Cheryl Douglass, ARMANDO - 10/28/2022 8:06 AM CST Anesthesia staff present to monitor patient airway, vital signs, and medications . See anesthesia docflow. This RN will assist as needed. RIBUTOR OPERATOR * Eliceo Rivera - 10/27/2022 11:28 PM CST EEG completed without complications. RIBUTOR OPERATOR * Nehemias Blanchard MD - 10/27/2022 7:48 PM CST Brief Neurosurgery update note: Neurosurgery notified that the patient appeared more confused. He was stroke act ivated. Neurology and Neurosurgery evaluated the patient. On my examination, patient is following x4 with symmetric greater than antigravity strength without drift. He is oriented to person and year, place with prompting. CT Head and labs obtained. CT Head stable without new hemorrhage or worsening ma ss effect. Continue to monitor at this time. Nehemias Blanchard MD RIBUTOR OPERATOR * Anna Abbott MD - 10/27/2022 7:46 AM CST Neurosurgery Progress Note Admission Date: 10/24/2022 LOS: 2 days S: Some persistent back pain still. Family aware of plans for bronchoscopy and M Stuart tomorrow. O: Vital Signs: 24 Hour Range BP: (92-155)/(41-73) Temp: [36.7 C (98 F)-38.1 C (100.6 F)] Pulse: [58-94] Respirations: [16 PER MINUTE-18 PER MINUTE] SpO2: [93 %-98 %] O2 Device: None (Room air) Physical Exam: Awake laying in bed, oriented x3 STUART, follows commands grossly symmetrically A/P: 82 y.o. male Principal Problem: SDH (subdural hematoma) Regular diet added Oxy, Tylenol and Robaxin for back discomfort, aqua k-pad. Will try lidocaine pat ch. ASA 81 mg held Neurology stroke completing stroke work up -requesting ANSELMO, ordered PT/OT to nhan Dickson stopped in light of grossly stable CT head Plan for R MMAe 10/28 CT chest with primary lung mass likely metastatic disease, onc consulted -bronchoscopy 10/28 -PET IM consult placed for medical oversight of his chronic conditions, may need opti mization of medications, await input. Prophylaxis: A) GI: no PPI B) Lines: No C) Urinary Catheter: No D) Antibiotic Usage: No E) VTE: Mechanical prophylaxis; Sequential compression device F) Restraints: Patient assessed for need for restraints. Please page [phone] with any questions. Anna Abbott MD Voalte me RIBUTOR OPERATOR Associated attestation - Jose Gallo MD - 10/27/2022 10:22 AM DISTRIBUTOR OPERATOR Attending Note Patient and imaging reviewed with resident/ REAL ESTATE SUBAGENT. Patient seen and examined. I ag ree with the history, examination findings and assessment/ plan unless otherwise noted below. * Jo Christy MD - 10/26/2022 7:56 PM CST Neurology Progress Note Admission Date: 10/24/2022 LOS: 1 day Assessment/Plan: Principal Problem: SDH (subdural hematoma) Scot Bell is a 82 y.o. male with pertinent PMHx of chronic subdural hematoma , essential tremor, HTN, PAD, that presented on 10/24/[address] find ings concerning for possible stroke. Neuro exam reveals LUQ visual field deficit, poor balance on standing and with g ait, bilateral postural and kinetic tremor, otherwise intact cranial nerves, no focal motor deficits, and only mild vibration sensory decrease in bilateral feet Imaging/Diagnostic Studies: CT Head from outside facility (radiology report available in Media tab): "There is a right subdural hemorrhage that may be a combination of acute and chr onic bleeding. There is some associated midline shift. Areas of low density in the brain are probably regions of his recent ischemic injury. Attempts to acqu don a prior comparison study were unsuccessful. The patient reportedly has chris el to a different facility for evaluation where he has been treated previously." CT Head 10/24/22: 1. Development of a moderate-sized hypodensity within the posterior medial occipitotemporal lobe likely representing a evolving late subacute right GENERATOR ASSEMBLER infarct. 2. New hypodensities within the mixed density subdural hematoma along the right cerebral convexity, likely represent interval bleeding. The subdural hematoma is stable in size producing stable mass effect resulting in 6 mm of leftward midline shift. No descending herniation or hydrocephalus. 3. Stable mild patchy supratentorial white matter hypodensities, likely sequelae of chronic microvascular ischemic change. 4. Tiny low-density is now present along the lateral right cerebellum likely interval small lacunar type infarct. CTA head and neck 10/25/22: CTA head: 1. Redemonstration of a small-moderately sized subacute right GENERATOR ASSEMBLER territory infarct without evidence of hemorrhagic conversion. Associated localized right cerebral mass effect with stable asymmetric enlargement of the right lateral ventricular temporal horn. 2. Additional likely recent tiny right posterolateral cerebellar and small medial right frontal-cingulate infarcts. 3. Stable size of the right cerebral convexity mixed density subdural hematoma and associated intracranial mass effect with up to 0.5 cm of leftward midline shift. 4. Stable mild patchy cerebral white matter hypodensities, consistent with nonspecific white matter disease, with tiny chronic left cerebellar infarcts. 5. Intracranial atherosclerotic vascular disease resulting in multifocal luminal stenoses, most pronounced and of severe degree at the right supraclinoid ICA and distal left intracranial vertebral artery. Additional less pronounced stenoses are described above. No evidence of large vessel occlusion. CTA neck: 1. Atherosclerotic vascular disease resulting in a severe, likely near occlusive luminal stenosis of the left cervical vertebral origin. Additional scattered, mild and moderate atherosclerotic luminal stenoses involving the great vessels are described in detail above. No hemodynamically significant ICA stenosis by NASCET criteria. 2. Emphysema with an irregular, masslike right upper lobe opacity and patchy underlying [id number]-fy-bud opacities throughout the visualized lungs. There is also relatively diffuse pulmonary septal thickening throughout the visualized lungs. Infectious-inflammatory pneumonia and potentially a component of underlying pulmonary edema could contribute to the more diffuse pulmonary findings, though, aforementioned dominant masslike right upper lobe opacity is suspect for neoplasm. CT chest is recommended to more completely evaluate pulmonary findings. 3. Multistation mediastinal and hilar lymphadenopathy. TTE : EF 82%. Bioprosthetic arctic valve. Does not mention shunting or PFO EEG: This abnormal >1 hour EEG is indicative of a moderate encephalopathy. No epileptiform signs are seen. LABS: TC 115, TG 190, HDL 25, LDL 62, A1c 5.7% Problem List: 1) Acute on chronic right subdural hemorrhage 2) Subacute Right GENERATOR ASSEMBLER/RODOLFO stroke 3) Essential tremor 4) 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 5) Mass-like RUL Opacity 6) Tree-in-bud opacities 7) Mediastinal and Hilar LAD DDx: Etiology of stroke most likely embolic of undetermined source. Probably mal ignancy related due to RUL mass, B hilar/mediastinal LAD vs cardioembolic RECOMMENDATIONS: > Recommend ANSELMO to rule out PFO. Given the history of subdural hematoma it would be difficult to weigh when AC could be resumed. If PFO is detected, would recommend closure to lower risk of further strokes. > Not a stroke intervention candidate given age indeterminate onset of symptoms (at least 2 to 3 weeks) and presence of chronic subdural hemorrhage >Telemetry to monitor for arrhythmia > Antiplatelet therapy: hold ASA for now in setting of subdural hematoma, but will recommend starting when safe from Neurosurgery standpoint > PT/OT/BUILDING TRADES INSTRUCTOR consult eval and treat > Rehab consult for assessment of post stroke care Patient seen and discussed with Dr. Dean, who will attest the original c onsult note Jo Waddell MD Neurology PGY-4 Subjective patient is accompanied by daughter. No abnormal movements noted in l eft leg. Some fasciculations are seen during assessment. Patient has been rest less.. Medications Scheduled Meds:acetaminophen (TYLENOL) tablet 650 mg, 650 mg, Oral, Q6H while aw mone atorvastatin (LIPITOR) tablet 80 mg, 80 mg, Oral, QDAY docusate (COLACE) capsule 100 mg, 100 mg, Oral, BID fluticasone propionate (FLONASE) nasal spray 2 spray, 2 spray, Each Nostril, QDA Y lidocaine (LIDODERM) 5 % topical patch 1 patch, 1 patch, Topical, QDAY methocarbamoL (ROBAXIN) tablet 500 mg, 500 mg, Oral, BID metoprolol tartrate (LOPRESSOR) tablet 50 mg, 50 mg, Oral, BID milk of magnesia (CONC) oral suspension 10 mL, 10 mL, Oral, QDAY senna/docusate (SENOKOT-S) tablet 1 tablet, 1 tablet, Oral, BID Continuous Infusions: PRN and Respiratory Meds:dextromethorphan/guaiFENesin (ROBITUSSIN-DM) oral syru p Q6H PRN, eucalyptus-menthoL Q2H PRN, hydrALAZINE Q6H PRN, labetalol (NORMODYNE ; TRANDATE) injection Q15 MIN PRN, nicotine (polacrilex) Q1H PRN, ondansetron (Z OFRAN) IV Q6H PRN, oxyCODONE Q4H PRN, sodium chloride PRN Objective Vital Signs: Last Filed Vital Signs: 24 [place] r Range BP: 102/42 (10/26 1758) Temp: 37.3 C (99.2 F) (10/26 1758) Pulse: 71 (10/26 1758) Respirations: 18 PER MINUTE (10/26 1758) SpO2: 93 % (10/26 1758) O2 Device: None (Room air) (10/26 1758) SpO2 Pulse: 84 (10/26 08) BP: (92-143)/(41-73) Temp: [36.7 C (98 F)-37.9 C (100.2 F)] Pulse: [64-94] Respirations: [18 PER MINUTE] SpO2: [93 %-98 %] O2 Device: None (Room air) Intensity Pain Scale (Self Report): 5 (10/26/22 0940) Vitals: 10/25/22 0902 Weight: 58.5 kg (129 lb) Intake/Output Summary: (Last 24 hours) Intake/Output Summary (Last 24 hours) at 10/26/20221955 Last data filed at 10/26/2022 0900 Gross per 24 hour Intake 150 ml Output 525 ml Net -375 ml Stool Occurrence: 0 Physical Exam Physical Exam: General: Resting comfortably Respiratory: No respiratory distress Neuro Exam: Mental status: Alert and oriented to person Speech: Fluent, intact comprehension and articulation CN: EOMIB, PERRL, facial sensation intact, facial movement symmetric, hearing gr ossly intact, tongue protrudes midline Motor: Generalized weakness,4/5 through, no obvious focality seen Sensation: intact to light touch throughout Gait: Not assessed Lab Review CBC w/Diff Lab Results Component Value Date/Time WBC 7.4 10/26/2022 09:59 AM RBC 3.50 (L) 10/26/2022 09:59 AM HGB 11.7 (L) 10/26/2022 09:59 AM HCT 34.9 (L) 10/26/2022 09:59 AM MCV 99.7 10/26/2022 09:59 AM MCH 33.5 10/26/2022 09:59 AM MCHC 33.6 10/26/2022 09:59 AM RDW 13.8 10/26/2022 09:59 AM PLTCT 98 (L) 10/26/2022 09:59 AM MPV 9.1 10/26/2022 09:59 AM Lab Results Component Value Date/Time NEUT 81 (H) 10/26/2022 09:59 AM ANC 6.06 10/26/2022 09:59 AM LYMA 4 (L) 10/26/2022 09:59 AM ALC 0.28 (L) 10/26/2022 09:59 AM MAGNUS 13 (H) 10/26/2022 09:59 AM AMC 0.97 (H) 10/26/2022 09:59 AM EOSA 1 10/26/2022 09:59 AM AEC 0.06 10/26/2022 09:59 AM BASA 1 10/26/2022 09:59 AM ABC 0.05 10/26/2022 09:59 AM Comprehensive Metabolic Profile Lab Results Component Value Date/Time NA 138 10/26/2022 09:59 AM K 3.6 10/26/2022 09:59 AM CL 106 10/26/2022 09:59 AM CO2 21 10/26/2022 09:59 AM GAP 11 10/26/2022 09:59 AM BUN 19 10/26/2022 09:59 AM CR 1.01 10/26/2022 09:59 AM GLU 136 (H) 10/26/2022 09:59 AM Lab Results Component Value Date/Time CA 9.0 10/26/2022 09:59 AM ALBUMIN 4.0 10/24/2022 09:38 PM TOTPROT 7.1 10/24/2022 09:38 PM ALKPHOS 105 10/24/2022 09:38 PM AST 65 (H) 10/24/2022 09:38 PM ALT 63 (H) 10/24/2022 09:38 PM TOTBILI 0.4 10/24/2022 09:38 PM Point of Care Testing (Last 24 hours) Glucose: (!) 136 POC Glucose (Download): 98 Jo Whittaker MD RIBUTOR OPERATOR Associated attestation - Judith Dean MD - 10/29/2022 9:57 PM DISTRIBUTOR OPERATOR ATTESTATION (LATE ENTRY) I personally performed the torres portions of the E/M visit, discussed case with re sident and concur with resident documentation of history, physical exam, assessm ent, and treatment plan unless otherwise noted. I saw and examined the patient today on rounds with Dr. Waddell. The richelle ent's daughter was present at the bedside with the patient's encouragement and p ermission. All questions were answered. The patient's daughter voiced appreciati on for his care. Laboratory results were reviewed. WBC 7.4. RBC 3.50. Hgb 11.7. MCV 99.7. RDW 13. 8. Platelets 98k. 81% neutrophils. 4% lymphocytes. 13% monocytes. ANC 6,060. ALC 280. AMC 970. Serum folate > 22.3. Vitamin B12 1,331. Iron 28. 8% saturation. TIBC 359. Ferritin 38. Sodium 138. Potassium 3.6. Chloride 106. CO2 21. Anion gap 11. BUN 19. Cr 1.01. eGFR > 60. Glucose 136. Calcium 9.0. Independent review of his 12-lead electrocardiogram (ECG) tracing from October 24, 2022 shows evidence of sinus rhythm, minimal voltage criteria for left ventr icular hypertrophy (LVH), which might be a normal variant and an age-indetermina te anterior infarction. Review of his chest CT with contrast from today, October 26, 2022 describes: Ax illa, Mediastinum and Dahlia: There is no axillary lymphadenopathy. There is moder ate mediastinal and bilateral hilar lymphadenopathy. A farm loan representative left lower paratracheal conglomerate measures 3.7 x 2.8 cm. Heart and Great Vessels: The h eart size is mildly enlarged There is no pericardial effusion. Marked coronary a rtery calcification. 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 Lungs and Pleura: Moderate emphysema and scattered areas of scarring. Right up per lobe mass is stable in size and configuration measuring 3.1 x 2.3 cm. Tiny n odules are seen throughout both lungs and bilateral pleural surfaces. Interstiti al thickening is seen bilaterally with mild groundglass opacity in both lungs. T race pleural effusions. Chest Wall and Osseous Structures: No destructive osseou s lesions. Upper Abdomen: A small indeterminate hypodense lesion is seen in the lower lateral right kidney. Hypodensity is seen throughout the anterior upper sp peewee consistent with [infarction]. Vascular calcifications are noted. I reviewed Dr. Waddell's impression and summarize my own impression as fo llows: - Multiple vascular territory arterial ischemic strokes, subacute. His serial head CT scans confirmed interval development of cerebral ischemic str sherrell between October 12, 2022 and October 24, 2022 and this was also supported b y evidence of subacute restricted diffusion patterns on his brain MRI. The most conspicuous stroke is of at least moderate size in the right posterior cerebral arterial (GENERATOR ASSEMBLER) territory. The tiny right lateral cerebellar stroke is likely also within the vertebrobasil ar (posterior circulation) distribution. The small medial right frontal-cingulate stroke is likely supplied by pericallos al arteries branching from the right anterior cerebral artery (RODOLFO). The involvement of bilateral as well as anterior and posterior circulations is m ost suggestive of a cardioembolic source. This would also include al the atherom atous aortic plaque described on his CT angiography. Given the presence of extensive lymphadenopathy, I am concerned about a hypercoa gulable state. The presence of mild left atrial enlargement could also be associated with a gre ater risk of paroxysmal atrial fibrillation but so far he has been in sinus rhyt hm. Because of his chronic subdural hematoma, use of even a single antiplatelet agen t let alone dual antiplatelet therapy (DAPT) or anticoagulation would be problem atic and fraught with severe risk of worsening hemorrhage. - Chronic subdural hematoma. This was incidentally noted as mixed density (implying different times of hemorr romario) on head CT. He had a history of falling back in August 2015 where there was a concern about fractured ribs. He denied falling recently when he was seen on September 10, 2022 . But more recently, there was a neurosurgery nursing note from October 09 with several questions including mention of a recent fall but it was not known whether he had hit his head and he had been on aspirin 81 mg daily. Even if he did not fall, spontaneous bleeding can certainly occur but is much le ss likely in the setting of only mild thrombocytopenia. Small cortical arteries that bleed can rarely result in what appears to be a spontaneous subdural hemato ma [Noe Castillo et al. J Neurosurg Sci (2009);53(4):157-159. PMID: 13611141]. - Chronic cerebral ischemia, moderate. This was reported as mild but the presence of clusters of (rather than scattered ) white matter disease is more consistent with a moderate degree both on his hea d CTs and brain MRI. - Intracranial arterial stenosis. He has known peripheral arterial disease (PAD) and now has identified narrowing of intracranial portions of both the anterior and posterior circulations. He also has cervical carotid and vertebral stenosis due to extensive atheroscler otic disease. - Vertebrobasilar dolichoectasia. This arteriopathy can cause cerebral ischemia through multiple mechanisms includ ing potentially abnormal thrombus/embolism formation or by stretching and/or oc clusion of arising small penetrating arteries [SHAHNAZ Israelo et al. Stroke (2020 );52(7):5482-2805. PMID: 19030956]. - Familial essential tremor. The patient was seen about six weeks ago in our [facility] and was planning for focused ultrasound thalamotomy when the subdural hematoma was i ncidentally noted. Both his father and sister developed tremor confirming an autosomal dominant pat tern of inheritance. - Decreased vibratory sense. This is certainly more common with increasing age. He does not have diabetes mellitus, excessive alcohol use (although he reportedl y described some improvement in his tremor with alcohol), vitamin B12 deficiency , or a globulin gap (to suggest an M paraproteinemia). If he did fall, he could have easily compressed some of his lumbosacral nerve ro ots and there was mention in the neurosurgery nursing note about "worsening neur opathy" in the last several weeks including worsening mobility. - Gait disturbance. I agree with Dr. Waddell's recommendations. Neurology will continue to be available but please call with any questions. Judith Dean MD Date: October 26, 2022 Neurology/Movement Disorders Attending Pager [phone] or Voalte * Chris Robesron RN - 10/26/2022 6:43 PM CST 10/26/22 0758 10/26/22 0833 10/26/22 1123 Vitals Temp 36.7 C (98 F) 37.9 C (100.2 F) 37.3 C (99.2 F) Temperature Source Oral Oral -- Pulse 94 -- -- Respirations 18 PER MINUTE -- -- SpO2 Pulse -- 84 -- SpO2 96 % 97 % -- SpO2 Location -- Left;Finger, Second (Index) -- O2 Device None (Room air) None (Room air) -- BP 123/73 122/58 -- Mean NBP (Calculated) 90 MM HG 79 MM HG -- BP Source Arm, Right Upper Arm, Left Upper -- BP Method -- Automatic -- BP Patient Position Head of bed (Comment degree) Head of bed (Comment degree) - - 10/26/22 1607 10/26/22 1758 Vitals Temp 37.9 C (100.2 F) 37.3 C (99.2 F) Temperature Source Oral Oral Pulse 81 71 Respirations 18 PER MINUTE 18 PER MINUTE SpO2 Pulse -- -- SpO2 98 % 93 % SpO2 Location -- -- O2 Device None (Room air) None (Room air) BP 92/41 102/42 Mean NBP (Calculated) 58 MM HG 62 MM HG BP Source Arm, Right Upper Arm, Right Upper BP Method -- -- BP Patient Position Lying, left side Lying, left side Approx. 1630: RN notified Anna Abbott MD, of concerning trends in patient vitals signs, with blood pressure trending down, pulse trending up, persistent t emperature in the 37.3 to 37.9 range, and increase in deterioration index of 6 p oints within one hour. Vital signs remain within limits. Patient is alert and or iented with pupils equal and reactive. Patient has sufficient oral intake. in structed RN to continue to monitor and notify if temperature exceeds 38 C or if blood pressure continues to drop. 1758: Pt. Vital signs remain within ranges. Continue to monitor. RIBUTOR OPERATOR * Cayden Sewell - 10/26/2022 1:01 PM CST Extended 65 minute EEG completed at bedside. Impedances below 5,000 Ohms. Photic stimulation, QA, and eye open/close performed. Patient highly restive, though o riented. RIBUTOR OPERATOR * Anna Abbott MD - 10/26/2022 6:48 AM CST Neurosurgery Progress Note Admission Date: 10/24/2022 LOS: 1 day S: Family at bedside, updated. Coughing overnight that was persistent. Some mild confusion overnight but remained oriented, possible mild delirium. O: Vital Signs: 24 Hour Range BP: (114-143)/(51-74) Temp: [36.4 C (97.5 F)-37.2 C (99 F)] Pulse: [56-79] Respirations: [18 PER MINUTE-20 PER MINUTE] SpO2: [93 %-100 %] O2 Device: None (Room air) Physical Exam: Awake laying in bed, oriented x3 STUART, follows commands grossly symmetrically A/P: 82 y.o. male Principal Problem: SDH (subdural hematoma) Regular diet added Oxy, Tylenol and Robaxin for back discomfort, aqua k-pad ASA 81 mg held Neurology stroke completing stroke work up PT/OT to nhan Dickson stopped in light of grossly stable CT head Plan for R MMAe 10/28 CT chest pending for newly found lung mass, potential involvement of onc/rad onc after imaging IM consult placed for medical oversight of his chronic conditions, may need opti mization of medications, await input. Prophylaxis: A) GI: no PPI B) Lines: No C) Urinary Catheter: No D) Antibiotic Usage: No E) VTE: Mechanical prophylaxis; Sequential compression device F) Restraints: Patient assessed for need for restraints. Please page [phone] with any questions. Anna Abbott MD Voalte me RIBUTOR OPERATOR Associated attestation - Jose Gallo MD - 10/27/2022 10:12 AM DISTRIBUTOR OPERATOR Attending Note Patient and imaging reviewed with resident/ REAL ESTATE SUBAGENT. Patient seen and examined. I ag ree with the history, examination findings and assessment/ plan unless otherwise noted below. * Elaine Monterroso, OT - 10/25/2022 2:34 PM CST OCCUPATIONAL THERAPY ASSESSMENT NOTE Name: Scot Bell : 1940 Age: 82 y.o. Admission Date: 10/24/2022 LOS: 0 days Date of Service: 10/25/2022 Mobility Patient Turn/Position: Chair Progressive Mobility Level: Walk in room Distance Walked (feet): 15 ft Level of Assistance: Assist X2 Assistive Device: Hand Held Activity Limited By: Weakness;Fatigue Subjective Pertinent Dx per Physician: Scot Bell is a 82 y.o. 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 Precautions: Standard;Falls Pain / Complaints: Patient agrees to participate in therapy;Patient demonstrates nonverbal signs of pain Comments: Ok to see per RN. Patient in bed and agreeable to therapy. Session end ed with patient in chair with alarm on and all needs in reach. Objective Psychosocial Status: Willing and Cooperative to Participate Persons Present: Physical Therapist;Daughter Home Living Type of Home: House Home Layout: One Level;Stairs to Enter w/o Rails (2 TERRELL) Bathroom Shower / Tub: Tub/Shower Unit Bathroom Toilet: Standard Bathroom Equipment: Shower Chair Home Equipment: Cane;Walker;Wheelchair-manual Prior Function Level Of [place]: Independent with ADLs and functional transfers;Needed ass istance with homemaking Lives With: Family (two sons) Receives Help From: Family Other Function Comments: Per patient, he was ambulating independently and able t o manage ADLs. Sons help with IADLs. Patient has had tremors so typically eats f jabier food. He has tried adaptive utensils but reported they have not worked for him Vision Current Vision: Wears Glasses Only for Reading Ocular Range Of Motion: Restricted on the Left;Restricted Looking Up;Restricted Looking Down Visual Concepcion: Difficulty Detecting Stimulus in Left Upper Quadrant;Difficulty D etecting Stimulus in Left Lateral Quadrant;Difficulty Detecting Stimulus in Left Lower Quadrant Comment: Patient with left neglect and left sided field cut ADL's Comment: declined the need for ADLs this session ADL Mobility Bed Mobility: Supine to Sit: Minimal assist Bed Mobility Comments: HOB elevated Transfer Type: Sit to stand Transfer: Assistance Level: Minimal assist;x2 people;From;Bed Transfer: Assistive Device: Hand hold assist Transfer: Type of Assistance: For balance;For safety considerations;For strength deficit Other Transfer Type: Stand pivot Other Transfer: Assistance Level: From;Bed;To;Bedside chair;Moderate assist;x2 p eople Other Transfer: Assistive Device: Hand hold assist Other Transfer: Type of Assistance: For balance;For safety considerations;For st rength deficit End of Activity Status: Instructed patient to request assist with mobility;Instr ucted patient to use call light;Nursing notified;Up in chair Sitting Balance: Static sitting balance;Dynamic sitting balance;Minimal assist;M oderate assist Gait Distance: 15 feet Gait: Assistance Level: Moderate assist;x2 people Gait: Assistive Device: Hand hold assist Gait Comments: Left neglect and leaning towards the left side. Short, shuffled s teps Activity Tolerance Endurance: 2/5 Tolerates 10-20 Minutes Exercise w/Multiple Rests Cognition Overall Cognitive Status: Impaired Cognition Comment: answered questions and conversational, patient was fatigued a nd did some decreased awareness of his deficits UE ROM R UE ROM: WFL L UE ROM: WFL R LE ROM: WFL L LE ROM: WFL Coordination: Severe Delay ROM Comments: tremors in bilateral hands UE Strength / Tone Strength Position Assessed: Seated R UE Strength: WFL L UE Strength: WFL R LE Strength: WFL (4/5) L LE Strength: WFL (4-/5) Strength Comments: both R and L shoulder strength the same but poor awarness and proprioception of L wrist and hand. L wrist/hand weaker than R side Education Persons Educated: Patient/Family Topics: Role of OT, Goals for Therapy;Home safety Goal Formulation: With Patient Assessment Assessment: Decreased ADL Status;Decreased UE ROM;Decreased UE Strength;Decrease d Safe/Judg during ADL;Decreased Cognition;Decreased Endurance;Visual Deficit;De creased Fine Motor Coordination;Decreased Self-Care Trans Prognosis: w/Cont OT s/p Acute Discharge AM-PAC 6 Clicks Daily Activity Inpatient Putting on and taking off regular lower body clothes: A Lot Bathing (Including washing, rinsing, drying): A Lot Toileting, which includes using toilet, bedpan, or urinal: A Lot Putting on and taking off regular upper body clothing: A Little Taking care of personal grooming such as brushing teeth: A Little Eating meals: A Little Daily Activity Raw Score: 15 Standardized (T-scale) Score: 34.69 Plan OT Frequency: 5x/week OT Plan for Next Visit: LUE strength, L sided attention, grooming standing, func tional transfers ADL Goals Patient Will Perform All ADL's: w/ Minimal Assist Functional Transfer Goals Pt Will Perform All Functional Transfers: Minimum Assist Vision Goals Pt Will Scan Environment: 100% of the time, w/ Minimal Cues OT Discharge Recommendations Recommendation: Inpatient setting;Recommend rehab medicine consult Patient Currently Requires Physical Assist With: All mobility;All personal care ADLs;All home functioning ADLs Therapist: DEBRA Petersen/[place] [id number] Date: 10/25/2022 RIBUTOR OPERATOR * Shelly Ceja, PT - 10/25/2022 2:04 PM CST PHYSICAL THERAPY ASSESSMENT Name: Scot Bell : 1940 Age: 82 y.o. Admission Date: 10/24/2022 LOS: 0 days Date of Service: 10/25/2022 Mobility Patient Turn/Position: Chair Progressive Mobility Level: Walk in room Distance Walked (feet): 15 ft Level of Assistance: Assist X2 Assistive Device: Hand Held Activity Limited By: Weakness;Fatigue Subjective Significant hospital events: 82 y.o. 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 The patient has baseline mixed tremor symptoms in the BUE. He is otherwise neurologically in tact. CT Head from OSH was reviewed which demonstrated acute on chronic R convexity SDH with 4-5 mm midline shift. Mental / Cognitive Status: Alert;Oriented;Cooperative;Follows Commands (Hard of hearing) Persons Present: Physical Therapist;Daughter Pain: Patient complains of pain;Patient does not rate pain Pain Location: Headache Pain Description: Aching Pain Interventions: Patient agrees to participate in therapy;Patient assisted in to position of comfort Comments: L visual field cut Ambulation Assist: Independent Mobility in Community without Device Patient Owned Equipment: Roller Walker;Manual Wheelchair;Single Point Cane Home Situation: Lives with Family (2 sons) Type of Home: House Entry Stairs: 1-2 Stairs;Rail on 1 Side (2 steps to enter) In-Home Stairs: Able to Live on One Level Comments: Patient reports that he was independent with mobility and most ADL, bu t has difficulty with feeding himself due to tremor ROM R UE ROM: WFL L UE ROM: WFL R LE ROM: WFL L LE ROM: WFL ROM Comments: tremors in bilateral hands Strength Strength Position Assessed: Seated R LE Strength: WFL (4/5) L LE Strength: WFL (4-/5) R UE Strength: WFL L UE Strength: WFL Strength Comments: both R and L shoulder strength the same but poor awarness and proprioception of L wrist and hands. L wrist/hand weaker than R side Posture/Neurological Head Control: Independent Posture: Forward head;Rounded shoulders Bed Mobility/Transfer Bed Mobility: Supine to Sit: Minimal Assist;Assist with Trunk;Assist with B LE Comments: Tolerated sitting edge of bed with minimal assist. Heavy L lateral jonny nk lean noted. Transfer Type: Sit to Stand Transfer: Assistance Level: To/From;Bed;Minimal Assist;x2 People Transfer: Assistive Device: Hand Hold Assist Transfers: Type Of Assistance: Knees(s) Blocked;For Balance;For Strength Deficit ;For Safety Considerations End Of Activity Status: Up in Chair;Nursing Notified;Instructed Patient to Reque st Assist with Mobility;Instructed Patient to Use Call Light (chair alarm activa toby) Balance Sitting Balance: Static Sitting Balance;Dynamic Sitting Balance;No UE Support;Mi nimal Assist;Moderate Assist Standing Balance: Static Standing Balance;Dynamic Standing Balance;2 UE support; Minimal Assist;x2 People Gait Gait Distance: 15 feet Gait: Assistance Level: Moderate Assist;x2 People Gait: Assistive Device: Hand Hold Assist Gait: Descriptors: Pace: Slow;Variable step length;Loss of balance Comments: Verbal and tactile cues to L to left to accommodate for visual field c ut. L lateral trunk lean and required cues for upright posture. Activity Limited By: Complaint of Fatigue;Weakness Activity/Exercise Sit Edge Of Bed: 8 minutes Sit Edge Of Bed Assist: Minimal Assist;Moderate Assist Stand At Bedside : 2 minutes Stand At Bedside Assist: Minimal Assist;x2 People Education Persons Educated: Patient Patient Barriers To Learning: Decreased Hearing Interventions: Repetition of Instructions;Louder Voice Required Teaching Methods: Verbal Instruction Patient Response: Verbalized Understanding;More Instruction Required Topics: Plan/Goals of PT Interventions;Use of Assistive Device/Orthosis;Mobility Progression;Safety Awareness;Up with Assist Only;Importance of Increasing Activ ity;Recommend Continued Therapy Assessment/Progress Impaired Mobility Due To: Decreased Strength;Pain;Impaired Balance;Decreased Act ivity Tolerance;Medical Status Limitation Assessment/Progress: Should Improve w/ Continued PT AM-PAC 6 Clicks Basic Mobility Inpatient Turning from your back to your side while in a flat bed without using bed rails: A Little Moving from lying on your back to sitting on the side of a flat bed without usin g bedrails : A Little Moving to and from a bed to a chair (including a wheelchair): A Lot Standing up from a chair using your arms (e.g. wheelchair, or bedside chair): A Lot To walk in hospital room: A Lot Climbing 3-5 steps with a railing: Total Basic Mobility Inpatient Raw Score: 13 Standardized (T-scale) Score: 33.99 Goals Goal Formulation: With Patient Time For Goal Achievement: 5 days, To, 7 days Patient Will Go Supine To/From Sit: Independently Patient Will Transfer Sit to Stand: Independently Patient Will Ambulate: Greater than 200 Feet, w/ No Device, w/ Stand By Assist Patient Will Go Up / Down Stairs: 1-2 Stairs, w/ Stand By Assist Plan Treatment Interventions: Mobility Training;Strengthening;Balance Activities;Endu marin Training;Neuromuscular Reeducation Plan Frequency: 5-7 Days per Week PT Plan for Next Visit: Work on attention to left with gait and transfers. Sitti ng balance. Increase ambulation distance. PT Discharge Recommendations Recommendation: Inpatient setting;Recommend rehab medicine consult Patient Currently Requires Physical Assist With: All mobility Therapist Shelly Ceja, PT Date 10/25/2022 RIBUTOR OPERATOR * Chris Wallis MD - 10/25/2022 10:03 AM CST Neurology Brief Update Note Name: Scot Bell Today's Date: 10/25/2022 Admission Date: 10/24/2022 LOS: 0 days ASSESSMENT: Principal Problem: SDH (subdural hematoma) Scot Bell is a 82 y.o. male with pertinent PMHx of chronic subdural hematoma , essential tremor, HTN, PAD, that presented on 10/24/[address] find ings concerning for possible stroke. Neuro exam reveals LUQ visual field deficit, poor balance on standing and with g ait, bilateral postural and kinetic tremor, otherwise intact cranial nerves, no focal motor deficits, and only mild vibration sensory decrease in bilateral feet Imaging/Diagnostic Studies: CT Head from outside facility (radiology report available in Media tab): "There is a right subdural hemorrhage that may be a combination of acute and chr onic bleeding. There is some associated midline shift. Areas of low density in the brain are probably regions of his recent ischemic injury. Attempts to acqu don a prior comparison study were unsuccessful. The patient reportedly has chris el to a different facility for evaluation where he has been treated previously." CT Head 10/24/22: 1. Development of a moderate-sized hypodensity within the posterior medial occipitotemporal lobe likely representing a evolving late subacute right GENERATOR ASSEMBLER infarct. 2. New hypodensities within the mixed density subdural hematoma along the right cerebral convexity, likely represent interval bleeding. The subdural hematoma is stable in size producing stable mass effect resulting in 6 mm of leftward midline shift. No descending herniation or hydrocephalus. 3. Stable mild patchy supratentorial white matter hypodensities, likely sequelae of chronic microvascular ischemic change. 4. Tiny low-density is now present along the lateral right cerebellum likely interval small lacunar type infarct. CTA head and neck 10/25/22: CTA head: 1. Redemonstration of a small-moderately sized subacute right GENERATOR ASSEMBLER territory infarct without evidence of hemorrhagic conversion. Associated localized right cerebral mass effect with stable asymmetric enlargement of the right lateral ventricular temporal horn. 2. Additional likely recent tiny right posterolateral cerebellar and small medial right frontal-cingulate infarcts. 3. Stable size of the right cerebral convexity mixed density subdural hematoma and associated intracranial mass effect with up to 0.5 cm of leftward midline shift. 4. Stable mild patchy cerebral white matter hypodensities, consistent with nonspecific white matter disease, with tiny chronic left cerebellar infarcts. 5. Intracranial atherosclerotic vascular disease resulting in multifocal luminal stenoses, most pronounced and of severe degree at the right supraclinoid ICA and distal left intracranial vertebral artery. Additional less pronounced stenoses are described above. No evidence of large vessel occlusion. CTA neck: 1. Atherosclerotic vascular disease resulting in a severe, likely near occlusive luminal stenosis of the left cervical vertebral origin. Additional scattered, mild and moderate atherosclerotic luminal stenoses involving the great vessels are described in detail above. No hemodynamically significant ICA stenosis by NASCET criteria. 2. Emphysema with an irregular, masslike right upper lobe opacity and patchy underlying ojvwbwodron-cwae-fy-bud opacities throughout the visualized lungs. There is also relatively diffuse pulmonary septal thickening throughout the visualized lungs. Infectious-inflammatory pneumonia and potentially a component of underlying pulmonary edema could contribute to the more diffuse pulmonary findings, though, aforementioned dominant masslike right upper lobe opacity is suspect for neoplasm. CT chest is recommended to more completely evaluate pulmonary findings. 3. Multistation mediastinal and hilar lymphadenopathy. LABS: TC 115, TG 190, HDL 25, LDL 62, A1c 5.7% Problem List: 1) Acute on chronic right subdural hemorrhage 2) Subacute Right GENERATOR ASSEMBLER stroke 3) Essential tremor Impression: Patient presents with increasing bilateral L> R weakness and sensation of numbness over the last 2-[address] head obtained showed late subacute right medial occipitotemporal stroke, along with a small lacunar type stroke in the lateral right cerebellum. His chronic subdural hematoma was relatively stable in size but now with mixed interval bleeding. Patient's daughter was also concerned for jerking movements of the LLE, however none were witnessed during interview or exam today, but could possibly represent focal m otor seizure in setting of his chronic subdural hematoma. Patient's exam did no t reveal any focal left-sided weakness or sensory deficit (mild decrease bilater al vibratory sensation). As patient's symptoms have been on clear onset, howeve r at least 2 to 3 weeks ago, and presence of subdural hemorrhage, he is not a ca ndidate for acute stroke intervention at this time. However, would still recomm end pursuing additional stroke risk factor work-up as detailed below. RECOMMENDATIONS: > 65 min EEG > Not a stroke intervention candidate given age indeterminate onset of symptoms (at least 2 to 3 weeks) and presence of chronic subdural hemorrhage > MRI head WO (pending) > Stroke risk factor assessment: Echocardiogram (pending) Telemetry to monitor for arrhythmia Antiplatelet therapy: hold ASA for now in setting of subdural hematoma, but will recommend starting when safe from Neurosurgery standpoint > PT/OT/BUILDING TRADES INSTRUCTOR consult eval and treat > Rehab consult for assessment of post stroke care > Order NUR55 "RN Stroke Dysphagia screening (swallow eval)" > Please call NEP chief unit forester [phone] for non-ICU patient and NEI chief unit forester [phone]) to perform the NIHSS and dysphagia screen. > Strict NPO until swallow evaluation completed > SCDs for DVT prevention Patient seen and discussed with Dr. Dean, who will attest the original c onsult note Chris Wallis MD PGY-2 Neurology Resident Available on Voalte RIBUTOR OPERATOR Associated attestation - Judith Dean MD - 10/29/2022 8:37 PM DISTRIBUTOR OPERATOR ATTESTATION (LATE ENTRY) I saw and examined this patient on rounds with Dr. Wallis. I discussed this richelle ent's care with Dr. Almonte overnight and with Dr. Wallis during team rounds toda y and I concur with the content written. Please see my full attestation in the i nitial consultation note written by Dr. Almonte. Judith Dean MD Date: October 25, 2022 Neurology/Movement Disorders Attending Pager [phone] * Isamar Newell, [employer] - 10/25/2022 7:35 AM CST Neurosurgery Progress Note Admission Date: 10/24/2022 LOS: 0 days S: Family at bedside, updated to imaging planned today. Patient reports he is law ving back pain, baseline arthritis pain and can't get comfortable in the bed. Di scussed adding robaxin and aqua heat pad. O: Vital Signs: 24 Hour Range BP: (145-154)/(59-76) Temp: [36.6 C (97.9 F)-37.2 C (99 F)] Pulse: [61-62] Respirations: [18 PER MINUTE] SpO2: [96 %-98 %] O2 Device: None (Room air) Physical Exam: Brightly awake, engaged in exam and conversation YUHAAVIATAM Oriented x 3 STUART, follows commands A/P: 82 y.o. male Principal Problem: SDH (subdural hematoma) Regular diet added Oxy, Tylenol and Robaxin for back discomfort, aqua k-pad ASA 81 mg held Neurology stroke completing stroke work up, awaiting CTA head/neck, MRI head, an d ECHO PT/OT to nhan Dickson stopped in light of grossly stable CT head Patient with R SDH we have been working on best intervention, CT head 12/15 with some mixed density otherwise stable, awaiting final recs from Neurology Stroke in terms of anti-platelet, etc. Anticipate may be more of a candidate for [facility] th an sherley holes. Addendum: Right upper lobe lung mass seen on CTA neck, patient and dtr updated will plan f or CT chest 10/26. CTA head and neck reviewed, significant intracranial and neck atherosclerotic va scular disease. Intracranially this is resulting in multifocal luminal stenoses- severe degree at right supraclinoid ICA and distal left intracranial vert artery . MRI head pending. IM consult placed for medical oversight of his chronic conditions, may need opti mization of medications, await input. Back discomfort with some improvement upon second visit this AM after med change s and aqua K pad. Prophylaxis: A) GI: no PPI B) Lines: No C) Urinary Catheter: No D) Antibiotic Usage: No E) VTE: Mechanical prophylaxis; Sequential compression device F) Restraints: Patient assessed for need for restraints. Please page [phone] with any questions. GABRIELLA Hernandes Voalte me RIBUTOR OPERATOR documented in this encounter H&P Notes * Carlos Hernandez MD - 10/31/2022 3:16 PM CST History and Physical Update Note No changes to HPI from 10/27/22 and progress note from 10/28/[address] [facility] pulmonary service. PET CT performed since that time was limited but demonstra toby hypermetabolic activity of the dominant R lesion and hilar/mediastinal lymph nodes. Discussed with patient and daughter, will proceed with robotic guided T BBx of R lesion with EBUS lymph node station biopsies for staging. Carlos Hernandez MD Pager : Voalte RIBUTOR OPERATOR Source Note - Esequiel Suarez III, MD - 10/27/2022 11:38 AM DISTRIBUTOR OPERATOR Pulmonary and Critical Care Medicine Consult Admission Date: 10/24/2022 LOS: 2 days Reason for Pulmonary Consult: "bronchsocopy" Principal Problem: SDH (subdural hematoma) Impression: Scot Bell is a 82 y.o. male with a history of HLD, HTN, PAD status post terrell nting, CAD status post PCI, chronic low back pain, essential tremor, and tobacco misuse who was admitted with acute on chronic right subdural hemorrhage with griffin bacute CVA. As part of his neurologic work-up, a right upper lobe mass with med iastinal and hilar lymphadenopathy was discovered. Pulmonary consult for bronch oscopy. 1. [id number] smoker; currently smoking 1/2 pack/day 2. Right upper lobe mass and mediastinal/hilar lymphadenopathy concerning for m alignancy 3. Emphysematous changes noticed on CT chest 4. Platelets 92K, INR 1.2 Recommendation: Oncology consulted regarding new lung mass; PET scan has been ordered. We will follow-up when results available Please make n.p.o. after midnight We will try to arrange for EBUS and navigational bronchoscopy for Sunday 10/28. If this cannot be accomplished on Friday, will reschedule for later in the week and alert the patient that he can eat. Needs to stop smoking; offer nicotine replacement therapy if needed Discussed with patient and family present at the bedside. All questions answere d. History of Present Illness: Scot Bell is a 82 y.o. 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 As part of his neurologic work-up, a CTA neck wa s obtained. This demonstrated a right upper lobe mass. This prompted a CTA of the chest which demonstrated a right upper lobe mass concerning for malignancy, bilateral mediastinal and hilar lymphadenopathy, and emphysematous changes. Pul monary consulted for bronchoscopy. He is unaware of any prior pulmonary issues. He has never been hospitalized for any respiratory issues. It sounds as though he has had pulmonary function test ing in the past, results unknown. He does not use inhalers. He has a [id number]-ayst smoking history; currently smoking 1/2 pack/day. Review of Systems: Constitutional: No fever or chills, No weight loss HEENT: No sinus tenderness or drainage. No headaches CV: no chest pain, palpitations, or LE swelling RESP: Chronic cough. No purulence. No hemoptysis. ABD: No diarrhea, constipation or pain Skin: no rash/sores MSK: no joint arthralgias or joint swelling Heme: no bleeding or unilateral leg or arm swelling : no dysuria or hematuria Neuro: Chronic tremor Lymph: No Lymphadenopathy Psych: Mood is stable Past Medical History: Medical History: Diagnosis Date Arthritis Bleeding disorder (HCC) Hypertension PAD (peripheral artery disease) (HCC) Tremor Past Surgical History: Surgical History: Procedure Laterality Date BACK SURGERY 2016 SURGERY 2017 Iliac stents HEART VALVE SURGERY 2018 HERNIA REPAIR Double Social History: Social History Socioeconomic History Marital status: Single Tobacco Use Smoking status: Every Day Packs/day: 0.50 Types: Cigarettes Smokeless tobacco: Never Vaping Use Vaping Use: Never used Substance and Sexual Activity Alcohol use: Not Currently Drug use: Not Currently Family History: Family History Problem Relation Age of Onset Tremor Father Cancer Brother Cancer Son Allergies: Patient has no known allergies. Medications Prior to Admission Medication Sig Dispense Refill Last Dose aspirin EC 81 mg tablet Take 81 mg by mouth daily. Plus one extra prn atorvastatin (LIPITOR) 80 mg tablet Take 80 mg by mouth daily. metoprolol tartrate (LOPRESSOR) 50 mg tablet Take 50 mg by mouth twice daily . MULTIVITAMIN PO Take 1 capsule by mouth daily. Medications: Scheduled Meds:acetaminophen (TYLENOL) tablet 650 mg, 650 mg, Oral, Q6H while aw mone atorvastatin (LIPITOR) tablet 80 mg, 80 mg, Oral, QDAY docusate (COLACE) capsule 100 mg, 100 mg, Oral, BID fluticasone propionate (FLONASE) nasal spray 2 spray, 2 spray, Each Nostril, QDA Y lidocaine (LIDODERM) 5 % topical patch 1 patch, 1 patch, Topical, QDAY methocarbamoL (ROBAXIN) tablet 500 mg, 500 mg, Oral, BID metoprolol tartrate (LOPRESSOR) tablet 50 mg, 50 mg, Oral, BID milk of magnesia (CONC) oral suspension 10 mL, 10 mL, Oral, QDAY senna/docusate (SENOKOT-S) tablet 1 tablet, 1 tablet, Oral, BID Continuous Infusions: PRN and Respiratory Meds:dextromethorphan/guaiFENesin (ROBITUSSIN-DM) oral syru p Q6H PRN, eucalyptus-menthoL Q2H PRN, hydrALAZINE Q6H PRN, labetalol (NORMODYNE ; TRANDATE) injection Q15 MIN PRN, nicotine (polacrilex) Q1H PRN, ondansetron (Z OFRAN) IV Q6H PRN, oxyCODONE Q4H PRN, sodium chloride PRN Vital Signs: Last Filed in 24 hours Vital Signs: 24 hour Range BP: 145/54 (10/27 806) Temp: 37.6 C (99.7 F) (10/27 806) Pulse: 73 (10/27 0353) Respirations: 16 PER MINUTE (10/27 806) SpO2: 95 % (10/27 806) O2 Device: None (Room air) (10/27 806) SpO2 Pulse: 72 (10/27 806) BP: (92-155)/(41-72) Temp: [36.8 C (98.2 F)-38.1 C (100.6 F)] Pulse: [58-93] Respirations: [16 PER MINUTE-18 PER MINUTE] SpO2: [93 %-98 %] O2 Device: None (Room air) Physical Exam: Gen: AAOx3, NAD HEENT: NCAT, EOMI, PERRL, No oral lesions RESP: CTAB, equal expansion BL, No use of accessory muscles, normal wob CVS: RRR, No RGM, No JVD, ABD: Soft, NT, ND, BS+, no HSM Ext: No Rashes, No Edema, no clubbing Neuro: No gross defecits, strength 5/5, non-focal Psych: Mood stable Skin: no rashes on exposed skin Lab: Recent Labs 10/24/22213710/26/2259 10/27/226 NA 141 138 140 K 3.9 3.6 3.8 CL 105 106 106 CO2 26 21 24 BUN 27* 19 18 CR 1.01 1.01 0.97 GLU 95 136* 96 GAP 10 11 10 MG 2.2 -- -- CA 9.3 9.0 8.7 Recent Labs 10/24/222137 ALKPHOS 105 AST 65* ALT 63* TOTPROT 7.1 TOTBILI 0.4 ALBUMIN 4.0 Recent Labs 10/24/22213710/26/2259 10/27/226 HGB 12.5* 11.7* 11.9* HCT 37.4* 34.9* 35.1* WBC 7.5 7.4 6.3 PLTCT 116* 98* 92* INR 1.2 -- -- No results for input(s): PHART, PCO2A, PO2ART, HCO3A, [id number] in the last 72 h ours. Radiology and other diagnostic tests: CT Chest 10/26/22: no prior imaging for comparison 1. 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 2. Mild cardiomegaly with interstitial thickening and groundglass opacity throughout both lungs, most likely representing CHF. 3. Moderate mediastinal and bilateral hilar lymphadenopathy suspicious for metastatic disease. 4. Diffuse nodularity throughout both lungs and pleura concerning for metastatic disease. This could also be infectious. 5. Moderate emphysema and scattered areas of scarring. 6. Trace pleural effusions. 7. Small hypodense right renal lesion is indeterminate and may be a cyst. Ultrasound characterization is recommended. 8. Marked coronary artery calcification. Esequiel Suarez III, MD Pager [phone] RIBUTOR OPERATOR documented in this encounter Procedure Notes * Portillo March MD - 10/28/2022 9:57 AM CST Immediate Post Procedure Note 10/28/22 Attending Physician: Portillo March MD Management Associate(s): none Procedure(s): diagnostic cerebral angiogram - particle embolization of the right middle meningeal artery Indications: Right subdural hematoma with hypercoagulable state related to recen t stroke and lung mass likely requiring future anticoagulation. Findings: successful embolization of the right middle meningeal artery Anesthesia: GETA Sedation/Medication Plan: per anesthesia Time out performed: Consent obtained, correct patient verified, correct procedur e verified, correct site verified, patient marked as necessary. Estimated Blood Loss: None/Negligible Specimen(s) Removed/Disposition: None Complications: None Comments: TR band removal, Continue work-up and care per neurology and oncology team - ok for coagulation as needed. Portillo March MD [id number] - US access rt Ulnar [id number] - Embosphere embolization of right middle meningeal artery 21583 - right internal carotid artery selection 25064 - right middle meningeal artery selection 57343 - embolization 24031 - post embo angiogram RIBUTOR OPERATOR * Hermann Shah MD - 10/27/2022 11:45 PM CST Images from the original note were not included. INPATIENT >1 HOUR EEG REPORT Scot Bell [id number] Date of service: 10/27/22 History: This is a 82 y.o. male presenting with R. SDH, R GENERATOR ASSEMBLER stroke, and enceph alopathy Pertinent medications: Scheduled Meds:acetaminophen (TYLENOL) tablet 650 mg, 650 mg, Oral, Q6H while awake atorvastatin (LIPITOR) tablet 80 mg, 80 mg, Oral, QDAY docusate (COLACE) capsule 100 mg, 100 mg, Oral, BID fluticasone propionate (FLONASE) nasal spray 2 spray, 2 spray, Each Nostril, QDA Y lidocaine (LIDODERM) 5 % topical patch 1 patch, 1 patch, Topical, ONCE lidocaine (LIDODERM) 5 % topical patch 1 patch, 1 patch, Topical, QDAY methocarbamoL (ROBAXIN) tablet 500 mg, 500 mg, Oral, BID metoprolol tartrate (LOPRESSOR) tablet 50 mg, 50 mg, Oral, BID milk of magnesia (CONC) oral suspension 10 mL, 10 mL, Oral, QDAY senna/docusate (SENOKOT-S) tablet 1 tablet, 1 tablet, Oral, BID Continuous Infusions: PRN and Respiratory Meds:dextromethorphan/guaiFENesin (ROBITUSSIN-DM) oral syru p Q6H PRN, eucalyptus-menthoL Q2H PRN, hydrALAZINE Q6H PRN, ibuprofen Q6H PRN, l abetalol (NORMODYNE; TRANDATE) injection Q15 MIN PRN, nicotine (polacrilex) Q1H PRN, ondansetron (ZOFRAN) IV Q6H PRN, oxyCODONE Q4H PRN, sodium chloride PRN, tr aMADoL Q6H PRN Introduction: This study was performed using digital electroencephalographic recording equipme nt. International 10-20 electrode placement was used along with FT9 and FT10 ashtyn ctrodes. The record was obtained with the patient in the awake and drowsy states . Photic stimulation is performed. Hyperventilation is not performed. The shiva dy is performed from 2202 to 230 on 10/27/22 . Description: In the most stimulated or awake state the background consists of continuous gene ralized polymorphic arrhythmic delta > theta activity. Posterior dominant rhythm is not visualized. Movement related artifacts are noticed during the recording. Stage II of sleep is not seen. Technical interpretation: This EEG is abnormal due to continuous generalized delta > theta slowing Clinical correlation: This abnormal >1 hour EEG is indicative of a mild to moderate encephalopathy. No epileptiform signs are seen. Compared to EEG from 10/26/22 - no significant changes. Hermann Shah MD RIBUTOR OPERATOR * Hermann Shah MD - 10/26/2022 6:21 PM CST Images from the original note were not included. INPATIENT >1 HOUR EEG REPORT Scot Bell 1940 [id number] Date of service: 10/26/22 History: This is a 82 y.o. male presenting with R. SDH, R GENERATOR ASSEMBLER stroke, and enceph alopathy Pertinent medications: Scheduled Meds:acetaminophen (TYLENOL) tablet 650 mg, 650 mg, Oral, Q6H while awake atorvastatin (LIPITOR) tablet 80 mg, 80 mg, Oral, QDAY docusate (COLACE) capsule 100 mg, 100 mg, Oral, BID fluticasone propionate (FLONASE) nasal spray 2 spray, 2 spray, Each Nostril, QDA Y lidocaine (LIDODERM) 5 % topical patch 1 patch, 1 patch, Topical, QDAY methocarbamoL (ROBAXIN) tablet 500 mg, 500 mg, Oral, BID metoprolol tartrate (LOPRESSOR) tablet 50 mg, 50 mg, Oral, BID milk of magnesia (CONC) oral suspension 10 mL, 10 mL, Oral, QDAY senna/docusate (SENOKOT-S) tablet 1 tablet, 1 tablet, Oral, BID Continuous Infusions: PRN and Respiratory Meds:dextromethorphan/guaiFENesin (ROBITUSSIN-DM) oral syru p Q6H PRN, eucalyptus-menthoL Q2H PRN, hydrALAZINE Q6H PRN, labetalol (NORMODYNE ; TRANDATE) injection Q15 MIN PRN, nicotine (polacrilex) Q1H PRN, ondansetron (Z OFRAN) IV Q6H PRN, oxyCODONE Q4H PRN, sodium chloride PRN Introduction: This study was performed using digital electroencephalographic recording equipme nt. International 10-20 electrode placement was used along with FT9 and FT10 ashtyn ctrodes. The record was obtained with the patient in the awake and drowsy states . Photic stimulation is performed. Hyperventilation is not performed. The shiva dy is performed from 1100 to 1206 on 10/26/22 . Description: In the most stimulated or awake state the background consists of continuous gene ralized polymorphic arrhythmic delta > theta activity. Drowsiness results in attenuation of the background and increased delta activity . Stage II of sleep is not seen. Technical interpretation: This EEG is abnormal due to continuous generalized delta > theta slowing Clinical correlation: This abnormal >1 hour EEG is indicative of a mild to moderate encephalopathy. No epileptiform signs are seen. Dora Mcnally MD Clinical Epilepsy Fellow I personally reviewed this study and the fellow's report and formulated the abov e mentioned opinions and interpretations in this study. Hermann Shah MD RIBUTOR OPERATOR documented in this encounter Consult Notes * Esequiel Suarez III, MD - 10/27/2022 11:38 AM CSTAssociated Order(s): CONSULT PULMONARY/CRITICAL CARE PHYSICIAN Pulmonary and Critical Care Medicine Consult Admission Date: 10/24/2022 LOS: 2 days Reason for Pulmonary Consult: "bronchsocopy" Principal Problem: SDH (subdural hematoma) Impression: Scot Bell is a 82 y.o. male with a history of HLD, HTN, PAD status post terrell nting, CAD status post PCI, chronic low back pain, essential tremor, and tobacco misuse who was admitted with acute on chronic right subdural hemorrhage with griffin bacute CVA. As part of his neurologic work-up, a right upper lobe mass with med iastinal and hilar lymphadenopathy was discovered. Pulmonary consult for bronch oscopy. 1. [id number] smoker; currently smoking 1/2 pack/day 2. Right upper lobe mass and mediastinal/hilar lymphadenopathy concerning for m alignancy 3. Emphysematous changes noticed on CT chest 4. Platelets 92K, INR 1.2 Recommendation: Oncology consulted regarding new lung mass; PET scan has been ordered. We will follow-up when results available Please make n.p.o. after midnight We will try to arrange for EBUS and navigational bronchoscopy for Sunday 10/28. If this cannot be accomplished on Friday, will reschedule for later in the week and alert the patient that he can eat. Needs to stop smoking; offer nicotine replacement therapy if needed Discussed with patient and family present at the bedside. All questions answere d. History of Present Illness: Scot Bell is a 82 y.o. 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 As part of his neurologic work-up, a CTA neck wa s obtained. This demonstrated a right upper lobe mass. This prompted a CTA of the chest which demonstrated a right upper lobe mass concerning for malignancy, bilateral mediastinal and hilar lymphadenopathy, and emphysematous changes. Pul monary consulted for bronchoscopy. He is unaware of any prior pulmonary issues. He has never been hospitalized for any respiratory issues. It sounds as though he has had pulmonary function test ing in the past, results unknown. He does not use inhalers. He has a [id number] smoking history; currently smoking 1/2 pack/day. Review of Systems: Constitutional: No fever or chills, No weight loss HEENT: No sinus tenderness or drainage. No headaches CV: no chest pain, palpitations, or LE swelling RESP: Chronic cough. No purulence. No hemoptysis. ABD: No diarrhea, constipation or pain Skin: no rash/sores MSK: no joint arthralgias or joint swelling Heme: no bleeding or unilateral leg or arm swelling : no dysuria or hematuria Neuro: Chronic tremor Lymph: No Lymphadenopathy Psych: Mood is stable Past Medical History: Medical History: Diagnosis Date Arthritis Bleeding disorder (HCC) Hypertension PAD (peripheral artery disease) (HCC) Tremor Past Surgical History: Surgical History: Procedure Laterality Date BACK SURGERY 2016 SURGERY 2017 Iliac stents HEART VALVE SURGERY 2018 HERNIA REPAIR Double Social History: Social History Socioeconomic History Marital status: Single Tobacco Use Smoking status: Every Day Packs/day: 0.50 Types: Cigarettes Smokeless tobacco: Never Vaping Use Vaping Use: Never used Substance and Sexual Activity Alcohol use: Not Currently Drug use: Not Currently Family History: Family History Problem Relation Age of Onset Tremor Father Cancer Brother Cancer Son Allergies: Patient has no known allergies. Medications Prior to Admission Medication Sig Dispense Refill Last Dose aspirin EC 81 mg tablet Take 81 mg by mouth daily. Plus one extra prn atorvastatin (LIPITOR) 80 mg tablet Take 80 mg by mouth daily. metoprolol tartrate (LOPRESSOR) 50 mg tablet Take 50 mg by mouth twice daily . MULTIVITAMIN PO Take 1 capsule by mouth daily. Medications: Scheduled Meds:acetaminophen (TYLENOL) tablet 650 mg, 650 mg, Oral, Q6H while aw mone atorvastatin (LIPITOR) tablet 80 mg, 80 mg, Oral, QDAY docusate (COLACE) capsule 100 mg, 100 mg, Oral, BID fluticasone propionate (FLONASE) nasal spray 2 spray, 2 spray, Each Nostril, QDA Y lidocaine (LIDODERM) 5 % topical patch 1 patch, 1 patch, Topical, QDAY methocarbamoL (ROBAXIN) tablet 500 mg, 500 mg, Oral, BID metoprolol tartrate (LOPRESSOR) tablet 50 mg, 50 mg, Oral, BID milk of magnesia (CONC) oral suspension 10 mL, 10 mL, Oral, QDAY senna/docusate (SENOKOT-S) tablet 1 tablet, 1 tablet, Oral, BID Continuous Infusions: PRN and Respiratory Meds:dextromethorphan/guaiFENesin (ROBITUSSIN-DM) oral syru p Q6H PRN, eucalyptus-menthoL Q2H PRN, hydrALAZINE Q6H PRN, labetalol (NORMODYNE ; TRANDATE) injection Q15 MIN PRN, nicotine (polacrilex) Q1H PRN, ondansetron (Z OFRAN) IV Q6H PRN, oxyCODONE Q4H PRN, sodium chloride PRN Vital Signs: Last Filed in 24 hours Vital Signs: 24 hour Range BP: 145/54 (10/27 806) Temp: 37.6 C (99.7 F) (10/27 806) Pulse: 73 (10/27 0353) Respirations: 16 PER MINUTE (10/27 806) SpO2: 95 % (10/27 806) O2 Device: None (Room air) (10/27 806) SpO2 Pulse: 72 (10/27 806) BP: (92-155)/(41-72) Temp: [36.8 C (98.2 F)-38.1 C (100.6 F)] Pulse: [58-93] Respirations: [16 PER MINUTE-18 PER MINUTE] SpO2: [93 %-98 %] O2 Device: None (Room air) Physical Exam: Gen: AAOx3, NAD HEENT: NCAT, EOMI, PERRL, No oral lesions RESP: CTAB, equal expansion BL, No use of accessory muscles, normal wob CVS: RRR, No RGM, No JVD, ABD: Soft, NT, ND, BS+, no HSM Ext: No Rashes, No Edema, no clubbing Neuro: No gross defecits, strength 5/5, non-focal Psych: Mood stable Skin: no rashes on exposed skin Lab: Recent Labs 10/24/22213710/26/22 0959 10/27/22 0416 NA 141 138 140 K 3.9 3.6 3.8 CL 105 106 106 CO2 26 21 24 BUN 27* 19 18 CR 1.01 1.01 0.97 GLU 95 136* 96 GAP 10 11 10 MG 2.2 -- -- CA 9.3 9.0 8.7 Recent Labs 10/24/222137 ALKPHOS 105 AST 65* ALT 63* TOTPROT 7.1 TOTBILI 0.4 ALBUMIN 4.0 Recent Labs 10/24/22213710/26/22 0959 10/27/22 0416 HGB 12.5* 11.7* 11.9* HCT 37.4* 34.9* 35.1* WBC 7.5 7.4 6.3 PLTCT 116* 98* 92* INR 1.2 -- -- No results for input(s): PHART, PCO2A, PO2ART, HCO3A, I7OTIVNEV in the last 72 h ours. Radiology and other diagnostic tests: CT Chest 10/26/22: no prior imaging for comparison 1. 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 2. Mild cardiomegaly with interstitial thickening and groundglass opacity throughout both lungs, most likely representing CHF. 3. Moderate mediastinal and bilateral hilar lymphadenopathy suspicious for metastatic disease. 4. Diffuse nodularity throughout both lungs and pleura concerning for metastatic disease. This could also be infectious. 5. Moderate emphysema and scattered areas of scarring. 6. Trace pleural effusions. 7. Small hypodense right renal lesion is indeterminate and may be a cyst. Ultrasound characterization is recommended. 8. Marked coronary artery calcification. Esequiel Suarez III, MD Pager [phone] RIBUTOR OPERATOR * Linda Johnson APRN-NP - 10/27/2022 11:29 AM CSTAssociated Order(s): CONSULT INTERVENTIONAL RADIOLOGY PHYSICIAN Interventional Radiology Consult Note with Pre-procedural History and Physical Admission Date: 10/24/2022 LOS: 2 days Principal Problem: SDH (subdural hematoma) Reason for consult: Eval for MMA embolization Assessment: - Admitted with acute on chronic SDH and subacute stroke -CT head 10/28 significant for stable mixed signal intensity right cerebral conv exity subdural hematoma measuring up to 1.2 cm in depth. Persistent associated i ntracranial mass effect with mild leftward midline shift measuring up to 0.5 cm. - Labs, medications, and allergies meet procedural protocol. - Pt is not on a therapeutic blood thinner currently - Platelet Count Date Value Ref Range Status 10/27/2022 92 (L) 150 - 400 K/UL Final ; INR Date Value Ref Range Status 10/24/2022 1.2 0.8 - 1.2 Final Plan: - This case has been reviewed and added onto the IR schedule for 10/28. - For sedation purposes, please keep NPO prior to procedure. May take PO medicat ions with sips of water. We appreciate being able to participate in this patient's care. Please page with any questions or concerns. GABRIELLA Raymond Pgr [phone] IR Team Pager [phone] (After-hours and Weekends) Procedure: R MMA embolization IR Pre Procedure Notes: Consent signed from patient and daughter tubed to IR pr e Chief Complaint: SDH Previous Anesthetic/Sedation History: Reviewed. Code Status: Full Code History of present illness: Scot Bell is a 82 y.o. male patient with hx of HTN, tremor, current smoker 25 pk-yr, CAD and stenting IR consulted for MMA embolization. See ROS below for cu rrent symptoms Review of Systems Constitutional: negative Respiratory: negative Gastrointestinal: negative Medications Scheduled Meds:acetaminophen (TYLENOL) tablet 650 mg, 650 mg, Oral, Q6H while aw mone atorvastatin (LIPITOR) tablet 80 mg, 80 mg, Oral, QDAY docusate (COLACE) capsule 100 mg, 100 mg, Oral, BID fluticasone propionate (FLONASE) nasal spray 2 spray, 2 spray, Each Nostril, QDA Y lidocaine (LIDODERM) 5 % topical patch 1 patch, 1 patch, Topical, QDAY methocarbamoL (ROBAXIN) tablet 500 mg, 500 mg, Oral, BID metoprolol tartrate (LOPRESSOR) tablet 50 mg, 50 mg, Oral, BID milk of magnesia (CONC) oral suspension 10 mL, 10 mL, Oral, QDAY senna/docusate (SENOKOT-S) tablet 1 tablet, 1 tablet, Oral, BID Continuous Infusions: PRN and Respiratory Meds:dextromethorphan/guaiFENesin (ROBITUSSIN-DM) oral syru p Q6H PRN, eucalyptus-menthoL Q2H PRN, hydrALAZINE Q6H PRN, labetalol (NORMODYNE ; TRANDATE) injection Q15 MIN PRN, nicotine (polacrilex) Q1H PRN, ondansetron (Z OFRAN) IV Q6H PRN, oxyCODONE Q4H PRN, sodium chloride PRN Objective Vital Signs: Last Filed Vital Signs: 24 [place] r Range BP: 145/54 (10/27 806) Temp: 37.6 C (99.7 F) (10/27 806) Pulse: 73 (10/27 0353) Respirations: 16 PER MINUTE (10/27 806) SpO2: 95 % (10/27 806) O2 Device: None (Room air) (10/27 806) SpO2 Pulse: 72 (10/27 806) BP: (92-155)/(41-72) Temp: [36.8 C (98.2 F)-38.1 C (100.6 F)] Pulse: [58-93] Respirations: [16 PER MINUTE-18 PER MINUTE] SpO2: [93 %-98 %] O2 Device: None (Room air) Intensity Pain Scale (Self Report): 5 (10/27/22 0923) Vitals: 10/25/22 0902 Weight: 58.5 kg (129 lb) Intake/Output Summary: (Last 24 hours) Intake/Output Summary (Last 24 hours) at 10/27/2022 1129 Last data filed at 10/27/2022 0354 Gross per 24 hour Intake 0 ml Output -- Net 0 ml Stool Occurrence: 0 Physical Exam General appearance: alert and no distress, sitting up in chair Neurologic: A/ox4, tremors with movement in b/l UEs, LE, delayed responses Lungs: Nonlabored with normal effort Abdomen: soft, non-tender. Extremities: extremities normal, atraumatic, no cyanosis or edema Pre-procedure anxiolysis plan: Per Anesthesia Sedation/Medication Plan: Per Anesthesia Personal history of sedation complications: Per Anesthesia Family history of sedation complications: Per Anesthesia Medications for Reversal: Per Anesthesia Discussion/Reviews: Physician has discussed risks and alternatives of this type of sedation and above planned procedures with patient and daughter/DPOA NPO Status: Acceptable Airway: Per Anesthesia Head and Neck: Per Anesthesia Mouth: Per Anesthesia Anesthesia Classification: Per Anesthesia Status: N/A Lab/Radiology/Other Diagnostic Tests: Labs: 24-hour labs: Results for orders placed or performed during the hospital encounter of 10/24/22 (from the past 24 hour(s)) BASIC METABOLIC PANEL Collection Time: 10/27/22 4:16 AM Result Value Ref Range Sodium 140 137 - 147 MMOL/L Potassium 3.8 3.5 - 5.1 MMOL/L Chloride 106 98 - 110 MMOL/L CO2 24 21 - 30 MMOL/L Anion Gap 10 3 - 12 Glucose 96 70 - 100 MG/DL Blood Urea Nitrogen 18 7 - 25 MG/DL Creatinine 0.97 0.4 - 1.24 MG/DL Calcium 8.7 8.5 - 10.6 MG/DL eGFR >60 >60 mL/min CBC AND DIFF Collection Time: 10/27/22 4:16 AM Result Value Ref Range White Blood Cells 6.3 4.5 - 11.0 K/UL RBC 3.52 (L) 4.4 - 5.5 M/UL Hemoglobin 11.9 (L) 13.5 - 16.5 GM/DL Hematocrit 35.1 (L) 40 - 50 % MCV 99.7 80 - 100 FL MCH 33.8 26 - 34 PG MCHC 33.9 32.0 - 36.0 G/DL RDW 14.2 11 - 15 % Platelet Count 92 (L) 150 - 400 K/UL MPV 9.0 7 - 11 FL Neutrophils 77 41 - 77 % Lymphocytes 6 (L) 24 - 44 % Monocytes 15 (H) 4 - 12 % Eosinophils 1 0 - 5 % Basophils 1 0 - 2 % Absolute Neutrophil Count 4.87 1.8 - 7.0 K/UL Absolute Lymph Count 0.39 (L) 1.0 - 4.8 K/UL Absolute Monocyte Count 0.97 (H) 0 - 0.80 K/UL Absolute Eosinophil Count 0.05 0 - 0.45 K/UL Absolute Basophil Count 0.04 0 - 0.20 K/UL Radiology: Reviewed. RIBUTOR OPERATOR * Case Wood MD - 10/27/2022 7:16 AM CSTAssociated Order(s): CONSULT REHABILITATION MEDICINE PHYSICIAN ATTESTATION I personally performed the torres portions of the E/M visit, discussed case with re sident and concur with resident documentation of history, physical exam, assessm ent, and treatment plan unless otherwise noted. Staff name: Case Wood MD Date: 10/27/2022 Physical Medicine & Rehabilitation Consult Service Name: Scot Bell : 1940 Age: 82 y. o. Admission Date: 10/24/2022 LOS: 2 Date of Service: 10/27/22 Financial Class: Payor: Payor: [employer] MEDICARE / Plan: [employer] MEDICARE PPO / Produ ct Type: Medicare / Referring Physician: Portillo March MD Reason for Consult: evaluate for Post-Acute Rehab/Placement Precautions: Fall, Weight Bearing Precautions: WBAT Active Problems Patient Active Problem List Diagnosis Date Noted SDH (subdural hematoma) 10/25/2022 Essential tremor 09/10/2022 Cognitive change 09/10/2022 Gait abnormality 10/27/22 Impaired mobility/ADLs 10/27/22 Impaired transfers 10/27/22 Cognitive deficits 10/27/22 Assessment & Plan Scot Bell is a 82 y.o. male admitted to [facility] on 10/24/2022 with the following issues: subdural hemorrhage Recommendations: Post-acute care rehabilitation needs: acute inpatient rehabilitation Patient s medical complexity warrants daily physician oversight and functional goals con sistent with intensive rehabilitation in acute inpatient rehabilitation. Patien t and family voicing interest in some form of inpatient rehab following discharg e from acute hospital. Daughter at bedside today and wondering about placement closer to home ([facility]). Education provided on options of both IRF and SNF. Discussed that patient is potentially a very good IRF candidate but that, should he and family feel like he needs to work at a slower pace and needs more time to work with therapies, SNF could also be a good option for him. Prior to the inpatient rehabilitation admission complete the following: *Endurance The patient will need to be clearly able to or reasonably expected to be able to endure 3 hours of constructive therapy per day. This will need to be determined prior to considering admission to acute inpatient rehabilitation. *IV Meds: The patient will need to be transitioned off any/all IV medications an d have good pain, nausea and BP control with oral agents prior to transfer to [facility] inpatient rehabilitation. Thank you for this consultation. Rehabilitation Medicine will continue to karri prince Impairments: cognitive impairments, loss of coordination, neurogenic bladder, ne urogenic bowel, pain, poor activity tolerance and weakness Activity Limitations: grooming, bathing, dressing - upper, dressing - lower, to ileting, transfers, ambulation, stairs and memory Participation Restrictions: unable to return home safely Family / Patient Dispositional Goals: return home with family assistance Overall Functional Goals Gait and mobility SBA Transfers SBA ADLs SBA Cognition / Communication Speech therapy will evaluate and treat cognition and c ommunication deficits and assess for safe swallow Barriers/Facilitators: Barriers: Caregiver apprehension, Equipment availibilty, High burden of care, Me dical complexity and Poor strength/endurance Facilitators: good family / social support and patient motivation Rehabilitation Prognosis: Fair to good Tolerance for three hours of therapy a day: Fair The patient and plan was discussed with attending physician, Dr. Wood. Marguerite Aparicio MD PM&R Resident, PGY-4 Voalte Me History of Present Illness Chief complaint: weakness Hospital Course: Scot Bell is a 82 y.o. male who has a past medical history of Arthritis, Ble eding disorder (HCC), Hypertension, PAD (peripheral artery disease) ([facility]), and T remor. Admitted to [facility] on 10/24/2022 as a transfer from OSH with CT head findi ngs including right subdural hemorrhage (acute and chronic) with some associated midline shift as well as areas of low density in the brain concerning for recent ischemic injury. Patient admitted to neurosurgery service with neurology foll owing for stroke work-up (ANSELMO pending at this time). Additionally, CT chest fou nd new lung mass and oncology was additionally consulted; planned work-up at [facility] includes bronc, PET. EEG on 10/26/2022 without epileptiform signs but w ith findings indicative of mild to moderate encephalopathy. Acute hospital stay has been complicated by impaired cognition, fatigue, weakness, and impaired ADLs and mobility. Pt is working with PT and OT to address functional and mobility deficits, and re hab medicine is now consulted for post-acute rehab/placement recommendations. Prior to admission, he lived with his 2 sons and was independent with ADLs and m obility; sons helped with IADLs. Patient states that he would have help from raciel cantor on discharge. Daughter present at bedside today and provides additional info rmation and history. Patient may have had a previous stay at IRF vs. SNF follow ing back surgery (?). While she felt that this was beneficial to him she though t he needed more days at the facility than he was given. Medical History: Diagnosis Date Arthritis Bleeding disorder (HCC) Hypertension PAD (peripheral artery disease) (HCC) Tremor Surgical History: Procedure Laterality Date BACK SURGERY 2016 SURGERY 2017 Iliac stents HEART VALVE SURGERY 2018 HERNIA REPAIR Double Social History Socioeconomic History Marital status: Single Tobacco Use Smoking status: Every Day Packs/day: 0.50 Types: Cigarettes Smokeless tobacco: Never Vaping Use Vaping Use: Never used Substance and Sexual Activity Alcohol use: Not Currently Drug use: Not Currently Family History Problem Relation Age of Onset Tremor Father Cancer Brother Cancer Son Family history: reviewed and noncontributory to current condition Scheduled Meds:acetaminophen (TYLENOL) tablet 650 mg, 650 mg, Oral, Q6H while aw mone atorvastatin (LIPITOR) tablet 80 mg, 80 mg, Oral, QDAY docusate (COLACE) capsule 100 mg, 100 mg, Oral, BID fluticasone propionate (FLONASE) nasal spray 2 spray, 2 spray, Each Nostril, QDA Y lidocaine (LIDODERM) 5 % topical patch 1 patch, 1 patch, Topical, QDAY methocarbamoL (ROBAXIN) tablet 500 mg, 500 mg, Oral, BID metoprolol tartrate (LOPRESSOR) tablet 50 mg, 50 mg, Oral, BID milk of magnesia (CONC) oral suspension 10 mL, 10 mL, Oral, QDAY senna/docusate (SENOKOT-S) tablet 1 tablet, 1 tablet, Oral, BID Continuous Infusions: PRN and Respiratory Meds:dextromethorphan/guaiFENesin (ROBITUSSIN-DM) oral syru p Q6H PRN, eucalyptus-menthoL Q2H PRN, hydrALAZINE Q6H PRN, labetalol (NORMODYNE ; TRANDATE) injection Q15 MIN PRN, nicotine (polacrilex) Q1H PRN, ondansetron (Z OFRAN) IV Q6H PRN, oxyCODONE Q4H PRN, sodium chloride PRN No Known Allergies Prior Level of Function Self-Care/ADLs: Independent Mobility: independent at community level without assistive device Home Environment: Home Situation: Lives with Family (2 sons) (10/25/2022 2:00 PM) Patient Owned Equipment: Roller Walker; Manual Wheelchair; Single Point Cane ( 2:00 PM) Type of Home: House (10/25/2022 2:35 PM) Entry Stairs: 1-2 Stairs; Rail on 1 Side (2 steps to enter) (10/25/2022 2:00 PM ) In-Home Stairs: Able to Live on One Level (10/25/2022 2:00 PM) Comments: Patient reports that he was independent with mobility and most ADL, bu t has difficulty with feeding himself due to tremor (10/25/2022 2:00 PM) Bathroom Equipment: Shower Chair (10/25/2022 2:35 PM) Current Level Of Function: PT Gait Distance: 15 feet Gait: Assistance Level: Moderate Assist, x2 People Gai t: Assistive Device: Hand Hold Assist Bed Mobility/Transfers Bed Mobility: Supine to Sit: Minimal Assist, Assist with Trunk, Assist with B LE Comments: Tolerated sitting edge of bed with minimal assist. Heavy L lateral jonny nk lean noted. Transfer Type: Sit to Stand Transfer: Assistance Level: To/From, Bed, Minimal Assist, x2 People Transfer: Assistive Device: Hand Hold Assist Transfers: Type Of Assistance: Knees(s) Blocked, For Balance, For Strength Defic it, For Safety Considerations End Of Activity Status: Up in Chair, Nursing Notified, Instructed Patient to Req uest Assist with Mobility, Instructed Patient to Use Call Light (chair alarm act ivated) OT ADL's Comment: declined the need for ADLs this session BUILDING TRADES INSTRUCTOR COGNITIVE EVALUATION SUMMARY PRAGMATICS: BEHAVIOR: AUDITORY COMPREHENSION: ORIENTATION: AUDITORY ATTENTION/WORKING MEMORY: AUDITORY MEMORY/SUSTAINED ATTENTION: NEW LEARNING: SEQUENCING/ORGANIZATION: PROBLEM SOLVING: REASONING: MATH/MONEY SKILLS: VISUAL PERCEPTUAL: SWALLOW EVALUATION SUMMARY Review of Systems A 14 point review of systems was negative except for: that noted in the HPI Physical Exam BP: 140/63 (10/27 0353) Temp: 36.8 C (98.2 F) (10/27 353) Pulse: 73 (10/27 0353) Respirations: 16 PER MINUTE (10/27 0353) SpO2: 95 % (10/27 0353) O2 Device: None (Room air) (10/27 353) SpO2 Pulse: 84 (10/26 0833) Body mass index is 20.2 kg/m. Gen: awake, alert, NAD, thin HEENT: NCAT, EOMI, MMM Neck: Supple and symmetric Heart: Extremities are well perfused Lungs: mild dyspnea with ambulation from bathroom to bed Abdomen: Soft, non-distended Psych: appropriate affect Ext: No c/c/e appreciated MS: at least antigravity strength in all exremities Neuro: Cranial Nerves Cranial Nerves 2-12 are grossly intact Diego Negative bilaterally Finger to Nose Pronounced tremor bilaterally; tremor not present at rest Upper Extremity Sensation Intact to light touch bilaterally Lower Extremity Sensation Intact to light touch bilaterally Memory/Concentration Oriented x4, tracking in conversation Intake/Output Summary (Last 24 hours) at 10/27/2022 0716 Last data filed at 10/27/2022 0354 Gross per 24 hour Intake 0 ml Output 100 ml Net -100 ml Hematology: Lab Results Component Value Date HGB 11.9 10/27/2022 HCT 35.1 10/27/2022 PLTCT 92 10/27/2022 WBC 6.3 10/27/2022 NEUT 77 10/27/2022 ANC 4.87 10/27/2022 ALC 0.39 10/27/2022 MAGNUS 15 10/27/2022 AMC 0.97 10/27/2022 ABC 0.04 10/27/2022 MCV 99.7 10/27/2022 MCHC 33.9 10/27/2022 MPV 9.0 10/27/2022 RDW 14.2 10/27/2022 , Coagulation: Lab Results Component Value Date PT 13.5 10/24/2022 INR 1.2 10/24/2022 General Chemistry: Lab Results Component Value Date NA 140 10/27/2022 K 3.8 10/27/2022 CL 106 10/27/2022 GAP 10 10/27/2022 BUN 18 10/27/2022 CR 0.97 10/27/2022 GLU 96 10/27/2022 CA 8.7 10/27/2022 ALBUMIN 4.0 10/24/2022 MG 2.2 10/24/2022 TOTBILI 0.4 10/24/2022 Radiology: CT CHEST W CONTRAST Final Result Abnormal 1. 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 2. Mild cardiomegaly with interstitial thickening and groundglass opacity throu ghout both lungs, most likely representing CHF. 3. Moderate mediastinal and bilateral hilar lymphadenopathy suspicious for meta static disease. 4. Diffuse nodularity throughout both lungs and pleura concerning for metastati c disease. This could also be infectious. 5. Moderate emphysema and scattered areas of scarring. 6. Trace pleural effusions. 7. Small hypodense right renal lesion is indeterminate and may be a cyst. Ultra sound characterization is recommended. 8. Marked coronary artery calcification. #FOLLOW Finalized by Johnny Gillespie M.D. on 10/26/2022 8:35 AM. Dictated by Narda Tucker on 10/26/2022 8:23 AM. MRI HEAD WO CONTRAST Final Result 1. Redemonstration of multiple scattered recent subacute appearing supratentori al and infratentorial infarcts (presumed embolic etiology) with a dominant small to moderate-sized right GENERATOR ASSEMBLER territory infarct. Unchanged associated right occip itotemporal mass effect. No evidence of hemorrhagic conversion of infarct. 2. Stable mixed signal intensity right cerebral convexity subdural hematoma otilia suring up to 1.2 cm in depth. 3. Persistent associated intracranial mass effect with mild leftward midline sh ift measuring up to 0.5 cm. 4. Mild underlying cerebral volume loss and patchy cerebral white matter FLAIR hyperintensities, likely due to chronic microvascular ischemic changes, with tin y chronic bilateral cerebellar infarcts and a small chronic area of left postero lateral temporal encephalomalacia gliosis. 5. Small geographic T1 hypointense marrow lesion involving the lower clivus, wh ich is indeterminate though in the setting of pulmonary findings on same-day CTA head-neck could reflect an osseous metastasis. Finalized by Hunter Martinez DO on 10/25/2022 1:00 PM. Dictated by Hunter Martinez DO on 10/25/2022 12:46 PM. 2D + DOPPLER ECHO Final Result CTA HEAD WO/W CONT Final Result CTA head: 1. Redemonstration of a small-moderately sized subacute right GENERATOR ASSEMBLER territory inf arct without evidence of hemorrhagic conversion. Associated localized right cere bral mass effect with stable asymmetric enlargement of the right lateral ventric ular temporal horn. 2. Additional likely recent tiny right posterolateral cerebellar and small medi al right frontal-cingulate infarcts. 3. Stable size of the right cerebral convexity mixed density subdural hematoma and associated intracranial mass effect with up to 0.5 cm of leftward midline sh ift. 4. Stable mild patchy cerebral white matter hypodensities, consistent with nons pecific white matter disease, with tiny chronic left cerebellar infarcts. 5. Intracranial atherosclerotic vascular disease resulting in multifocal lumina l stenoses, most pronounced and of severe degree at the right supraclinoid ICA a nd distal left intracranial vertebral artery. Additional less pronounced stenose s are described above. No evidence of large vessel occlusion. CTA neck: 1. Atherosclerotic vascular disease resulting in a severe, likely near occlusiv e luminal stenosis of the left cervical vertebral origin. Additional scattered, mild and moderate atherosclerotic luminal stenoses involving the great vessels a re described in detail above. No hemodynamically significant ICA stenosis by LISA CET criteria. 2. Emphysema with an irregular, masslike right upper lobe opacity and patchy un derlying fkrlecrlhsf-gquk-yg-bud opacities throughout the visualized lungs. Ther e is also relatively diffuse pulmonary septal thickening throughout the visualiz ed lungs. Infectious-inflammatory pneumonia and potentially a component of under lying pulmonary edema could contribute to the more diffuse pulmonary findings, t rebecca, aforementioned dominant masslike right upper lobe opacity is suspect for neoplasm. CT chest is recommended to more completely evaluate pulmonary findings . 3. Multistation mediastinal and hilar lymphadenopathy. Discussed with Isamar Newell APRN by myself via telephone at 9:49 AM on 2021 Finalized by Hunter Martinez DO on 10/25/2022 9:49 AM. Dictated by Hunter Martinez DO on 10/25/2022 9:05 AM. CTA NECK WO/W CONT Final Result CTA head: 1. Redemonstration of a small-moderately sized subacute right GENERATOR ASSEMBLER territory inf arct without evidence of hemorrhagic conversion. Associated localized right cere bral mass effect with stable asymmetric enlargement of the right lateral ventric ular temporal horn. 2. Additional likely recent tiny right posterolateral cerebellar and small medi al right frontal-cingulate infarcts. 3. Stable size of the right cerebral convexity mixed density subdural hematoma and associated intracranial mass effect with up to 0.5 cm of leftward midline sh ift. 4. Stable mild patchy cerebral white matter hypodensities, consistent with nons pecific white matter disease, with tiny chronic left cerebellar infarcts. 5. Intracranial atherosclerotic vascular disease resulting in multifocal lumina l stenoses, most pronounced and of severe degree at the right supraclinoid ICA a nd distal left intracranial vertebral artery. Additional less pronounced stenose s are described above. No evidence of large vessel occlusion. CTA neck: 1. Atherosclerotic vascular disease resulting in a severe, likely near occlusiv e luminal stenosis of the left cervical vertebral origin. Additional scattered, mild and moderate atherosclerotic luminal stenoses involving the great vessels a re described in detail above. No hemodynamically significant ICA stenosis by LISA CET criteria. 2. Emphysema with an irregular, masslike right upper lobe opacity and patchy un derlying pwmydcfbbyt-dabb-cy-bud opacities throughout the visualized lungs. Ther e is also relatively diffuse pulmonary septal thickening throughout the visualiz ed lungs. Infectious-inflammatory pneumonia and potentially a component of under lying pulmonary edema could contribute to the more diffuse pulmonary findings, t rebecca, aforementioned dominant masslike right upper lobe opacity is suspect for neoplasm. CT chest is recommended to more completely evaluate pulmonary findings . 3. Multistation mediastinal and hilar lymphadenopathy. Discussed with Isamar Newell APRN by myself via telephone at 9:49 AM on 2021 Finalized by Hunter Martinez DO on 10/25/2022 9:49 AM. Dictated by Hunter Martinez DO on 10/25/2022 9:[address] HEAD WO CONTRAST Final Result Addendum (preliminary) Finalized by Gee Page MD, PhD on 10/24/2022 11:16 PM. Dictated by Cayden Cardona MD on 10/24/2022 11:02 PM.Addendum: Dr. Cardona discussed these findings with Dr. Rocha by telephone at 11:18 PM on 10/24/2022. Approved by Cayden Cardona MD on 10/24/2022 11:18 PM By my electronic signature, I attest that I have personally reviewed the images for this examination and formulated the interpretations and opinions expressed in this report Finalized by Gee Page MD, PhD on 10/24/2022 11:18 PM. Dictated by Cayden aCrdona MD on 10/24/2022 11:17 PM. Final 1. Development of a moderate-sized hypodensity within the posterior medial occi pitotemporal lobe likely representing a evolving late subacute right GENERATOR ASSEMBLER infarct . 2. New hypodensities within the mixed density subdural hematoma along the right cerebral convexity, likely represent interval bleeding. The subdural hematoma is stable in size producing stable mass effect resulting in 6 mm of leftward midl ine shift. No descending herniation or hydrocephalus. 3. Stable mild patchy supratentorial white matter hypodensities, likely sequela e of chronic microvascular ischemic change. 4. Tiny low-density is now present along the lateral right cerebellum likely in terval small lacunar type infarct. By my electronic signature, I attest that I have personally reviewed the images for this examination and formulated the interpretations and opinions expressed i n this report CHEST SINGLE VIEW Final Result Patchy groundglass opacity scattered throughout both lungs concerning for diffus e infectious etiology versus pulmonary edema. Finalized by Gee Page MD, PhD on 10/24/2022 10:18 PM. Dictated by Yaron Page MD, PhD on 10/24/2022 10:16 PM. IR CEREBRAL ANEURYSM EMBOLIZATION (Results Pending) NM PET SCAN TORSO (SKULL-THIGHS) (Results Pending) Marguerite Aparicio MD RIBUTOR OPERATOR * Rafal Amaya MD - 10/26/2022 1:51 PM CSTAssociated Order(s): CONSULT ONCOLOGY PHYSICIAN Hematology/Oncology History and Physical Name: Scot Bell [address]: [address] [place] [id number] Date seen: 10/26/22 Setting: Inpt Admit date: 10/24/2022 CC: concerning lung mass HPI: 82 y.o. year old male with concerning RUL lung mass, B hilar nodes and even a questionable clival met, in a longtime smoker. Imaging done because he has be en hospitalized with acute on chronic subdural hematoma but also strokes, so won dering why he may be hypercoagulable. Medical History: Diagnosis Date Arthritis Bleeding disorder (HCC) Hypertension PAD (peripheral artery disease) (HCC) Tremor Surgical History: Procedure Laterality Date BACK SURGERY 2016 SURGERY 2017 Iliac stents HEART VALVE SURGERY 2018 HERNIA REPAIR Double No Known Allergies Current Facility-Administered Medications: acetaminophen (TYLENOL) tablet 650 mg, 650 mg, Oral, Q6H while awake, Connie Baltazar MD, 650 mg at 10/26/22 0939 atorvastatin (LIPITOR) tablet 80 mg, 80 mg, Oral, QDAY, Nehemias Blanchard MD , 80 mg at 10/26/22 0939 dextromethorphan/guaiFENesin (ROBITUSSIN-DM) oral syrup 10 mL, 10 mL, Oral, Q6H PRN, Anna Abbott MD docusate (COLACE) capsule 100 mg, 100 mg, Oral, BID, Nehemias Blanchard MD, 1 00 mg at 10/26/22 0939 eucalyptus-menthoL (HALLS) lozenge 1 lozenge, 1 lozenge, Oral, Q2H PRN, Leoncio Lawson MD, 1 lozenge at 10/26/22 0214 fluticasone propionate (FLONASE) nasal spray 2 spray, 2 spray, Each Nostril , QDAY, Isamar Newell, WINDOW ASSEMBLER-REAL ESTATE SUBAGENT, 2 spray at 10/26/22 0941 hydrALAZINE (APRESOLINE) injection 10 mg, 10 mg, Intravenous, Q6H PRN, Nehemias Pryor MD, 10 mg at 10/25/22 0554 labetaloL (NORMODYNE) injection 10 mg, 10 mg, Intravenous, Q15 MIN PRN, Nehemias Ernandez MD lidocaine (LIDODERM) 5 % topical patch 1 patch, 1 patch, Topical, QDAY, Connie Sterling MD, 1 patch at 10/26/22 0940 methocarbamoL (ROBAXIN) tablet 500 mg, 500 mg, Oral, BID, Isamar Newell APRN-REAL ESTATE SUBAGENT, 500 mg at 10/26/22 0940 metoprolol tartrate (LOPRESSOR) tablet 50 mg, 50 mg, Oral, BID, Alem Blanchard nd, MD, 50 mg at 10/26/22 0940 milk of magnesia (CONC) oral suspension 10 mL, 10 mL, Oral, QDAY, Alannah Blanchard MD, 10 mL at 10/26/22 0940 nicotine (polacrilex) (COMMIT) lozenge 2 mg, 2 mg, Oral, Q1H PRN, Patricia Dahl MD ondansetron (ZOFRAN) injection 4 mg, 4 mg, Intravenous, Q6H PRN, Sang Blanchard MD oxyCODONE (ROXICODONE) tablet 2.5-5 mg, 2.5-5 mg, Oral, Q4H PRN, Anna Abbott MD, 2.5 mg at 10/26/22 1238 senna/docusate (SENOKOT-S) tablet 1 tablet, 1 tablet, Oral, BID, Sang Blanchard MD, 1 tablet at 10/26/22 0939 sodium chloride (SEA MIST) 0.65 % nasal spray 2 spray, 2 spray, Each Nostri SHANTEL bowen, Leoncio Grimm MD, 2 spray at 10/25/22 7780 Social History Tobacco Use Smoking status: Every Day Packs/day: 0.50 Types: Cigarettes Smokeless tobacco: Never Vaping Use Vaping Use: Never used Substance Use Topics Alcohol use: Not Currently Drug use: Not Currently Lives with two sons in [facility] Family History Problem Relation Age of Onset Tremor Father Cancer Brother Cancer Son On review of systems, GEN: no fevers, chills or night sweats, no change in weight, no fatigue, longtim e smoker HEENT: + sinus congestion, + headaches, no visual deficit, EOMI, no dysphagia or odynophagia. Pulmonary: persistent nagging cough, no mucus production, no dyspnea , no pleuri tic chest pain. CV: no palpitation, no angina symptom, no orthopnea. GI: no nausea or vomiting, normal appetite and normal bowel habits. No melena or diarrhea. : no change in frequency, no change in color. Extremities: no weakness, no edema, no numbness. Neurologic: no numbness or tingling, Endocrine: no cold or heat intolerance Hematologic: no bleeding problems, easy bruising, or history of clots Physical Exam: Blood pressure 122/58, pulse 94, temperature 37.3 C (99.2 F), height 170.2 c m (5' 7"), weight 58.5 kg (129 lb), SpO2 97 %. Pain Ratin Pain Addressed: Current regimen working to control pain. ECOG performance status is 3, Capable of only limited selfcare, confined to bed or chair more than 50% of waking hours. Gen: nad, comfortable, conversant, nagging dry cough HEENT: anicteric, perrl, eomi, conjunctiva without pallor Neck: no lad, no bruits, no thyromegaly or nodules palpated Lungs: CTA B CV: rrr, no m/r/g Ab: normoactive BS, no hepatomegaly, no splenomegaly, no masses or bruits, no TT P Ext: no c/c/e Neuro: essential tremor noted Lymph: no axillary, supraclavicular, periumbilical or inguinal nodes appreciated Psych: appropriate Upon reviewing the labwork.pertinent results include: CBC w diff Lab Results Component Value Date/Time WBC 7.4 10/26/2022 09:59 AM RBC 3.50 (L) 10/26/2022 09:59 AM HGB 11.7 (L) 10/26/2022 09:59 AM HCT 34.9 (L) 10/26/2022 09:59 AM MCV 99.7 10/26/2022 09:59 AM MCH 33.5 10/26/2022 09:59 AM MCHC 33.6 10/26/2022 09:59 AM RDW 13.8 10/26/2022 09:59 AM PLTCT 98 (L) 10/26/2022 09:59 AM MPV 9.1 10/26/2022 09:59 AM Lab Results Component Value Date/Time NEUT 81 (H) 10/26/2022 09:59 AM ANC 6.06 10/26/2022 09:59 AM LYMA 4 (L) 10/26/2022 09:59 AM ALC 0.28 (L) 10/26/2022 09:59 AM MAGNUS 13 (H) 10/26/2022 09:59 AM AMC 0.97 (H) 10/26/2022 09:59 AM EOSA 1 10/26/2022 09:59 AM AEC 0.06 10/26/2022 09:59 AM BASA 1 10/26/2022 09:59 AM ABC 0.05 10/26/2022 09:59 AM Comprehensive Metabolic Profile Lab Results Component Value Date/Time NA 138 10/26/2022 09:59 AM K 3.6 10/26/2022 09:59 AM CL 106 10/26/2022 09:59 AM CO2 21 10/26/2022 09:59 AM GAP 11 10/26/2022 09:59 AM BUN 19 10/26/2022 09:59 AM CR 1.01 10/26/2022 09:59 AM GLU 136 (H) 10/26/2022 09:59 AM Lab Results Component Value Date/Time CA 9.0 10/26/2022 09:59 AM ALBUMIN 4.0 10/24/2022 09:38 PM TOTPROT 7.1 10/24/2022 09:38 PM ALKPHOS 105 10/24/2022 09:38 PM AST 65 (H) 10/24/2022 09:38 PM ALT 63 (H) 10/24/2022 09:38 PM TOTBILI 0.4 10/24/2022 09:38 PM Upon reviewing the pathology reports, pertinent results include: No diagnosis of cancer yet Upon reviewing imaging, pertinent results include: MRI head 10/25/22: 1. Redemonstration of multiple scattered recent subacute appearing supratentorial and infratentorial infarcts (presumed embolic etiology) with a dominant small to moderate-sized right GENERATOR ASSEMBLER territory infarct. Unchanged associated right occipitotemporal mass effect. No evidence of hemorrhagic conversion of infarct. 2. Stable mixed signal intensity right cerebral convexity subdural hematoma measuring up to 1.2 cm in depth. 3. Persistent associated intracranial mass effect with mild leftward midline shift measuring up to 0.5 cm. 4. Mild underlying cerebral volume loss and patchy cerebral white matter FLAIR hyperintensities, likely due to chronic microvascular ischemic changes, with tiny chronic bilateral cerebellar infarcts and a small chronic area of left posterolateral temporal encephalomalacia gliosis. 5. Small geographic T1 hypointense marrow lesion involving the lower clivus, which is indeterminate though in the setting of pulmonary findings on same-day CTA head-neck could reflect an osseous metastasis. CT chest 10/26/22 1. 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 2. Mild cardiomegaly with interstitial thickening and groundglass opacity throughout both lungs, most likely representing CHF. 3. Moderate mediastinal and bilateral hilar lymphadenopathy suspicious for metastatic disease. 4. Diffuse nodularity throughout both lungs and pleura concerning for metastatic disease. This could also be infectious. 5. Moderate emphysema and scattered areas of scarring. 6. Trace pleural effusions. 7. Small hypodense right renal lesion is indeterminate and may be a cyst. Ultrasound characterization is recommended. 8. Marked coronary artery calcification. Assessment/Plan: 82 y.o. y.o. male with RUL mass, B hilar/mediastinal LAD, ronen rning clival bone mass, in face of bleeding and clotting issues in brain. Longti me active smoker. Advanced lung cancer until proven otherwise? He needs bronch for lymph node eval and diagnosis. PET skull-thighs for staging. NPO at midnight on early Friday morning for potential bronch on Friday Time spent on consult: 75 mins reviewing records, discussing case, and examining him and discussing things with him and his daughter at bedside Thank you for including us in the care of Scot Bell Rafal Amaya MD Division of Hematology/Oncology [facility] RIBUTOR OPERATOR * Connie Dahl MD - 10/25/2022 10:43 AM CSTAssociated Order(s): CONSULT INTERNAL MEDICINE PHYSICIAN Consult History and Physical Name: Scot Bell Admission Date: 10/24/2022 Recommendations: -Scheduled APAP, lidocine patch for back pain (ordered) -prn nicotine lozenges for NRT (ordered) -Iron, folate, B12, peripheral smear for work-up of cytopenias (ordered) -We will follow CT chest results -If concern for mass on CT chest would recommend CT-guided lung biopsy with IR o n Friday, n.p.o. Friday night Medicine will follow peripherally over the weekend. We will chart check for rev iew of CT chest. We will plan to see the patient again 10/28. Please do not he sitate to call with any questions arise over the weekend. Assessment/Plan: Scot Bell is a 82 y.o. 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 Medicine consulted for management of multiple co-morbidities as well as work up of new possible lung mass #Acute on Chronic R subdural Hemorrhage - found incidentally during outpatient e valuation for Focused US for essential tremor. Repeat CT at admission with ronen rn for interval bleed, mixed blood products on Scan - neurosurgery managing - no acute surgical intervention #Subacute R GENERATOR ASSEMBLER stroke #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 - CT head w/ late subac [place] right medial occipitotemporal stroke and small lacunar type stroke in the la teral right cerebellum. US showed Atherosclerotic disease resulting in a severe, likely near occlusive luminal stenosis of the left cervical vertebral origin. - stroke work up initiated by neurology - defer need for vascular intervention to neuro/neurosurgery - RETIREMENT SALES CONSULTANT statin - ASA once able from a SDH standpoint #Mass-like RUL Opacity #Tree-in-bud opacities #Mediastinal and Hilar LAD - pt asymptomatic from an infectious standpoint. He h as chronic cough productive of clear sputum that is unchanged. He is not meetin g SIRS criteria. Concerning for underlying malignancy. He has had weight loss that was previously attributed to his essential tremor and inability to eat but no other constitutional symptoms. -Dedicated CT chest with contrast -If concern for malignancy persists based on imaging would recommend IR for CT-g uided lung biopsy on Friday -No antibiotics indicated at this time #Macrocytic anemia #Thrombocytopenia #Lymphopenia -mild anemia but macrocytic. Also with mild thrombocytopenia, lymp hopenia. Possible that it saw nutrition based -Please check iron, B12, folate -Peripheral smear #Mild elevation in Transaminases - very mild. -repeat LFTs in am #Hematuria - noted on UA. -repeat as an outpatient. If persistent, will need urology referral #Emphysema - as seen on CTs. -outpatient PFTs -prn albuterol for any dyspnea #Weight loss-secondary to essential tremor versus underlying malignancy. -Would recommend nutrition consult #HTN - RETIREMENT SALES CONSULTANT metoprolol #HLD - RETIREMENT SALES CONSULTANT statin #PAD - hx of Stenting/balloon angioplasty to RLE. Has chronic claudication sympt oms. -RETIREMENT SALES CONSULTANT statin, holding ASA # - s/p TAVR several years ago. #Chronic LBP - hx of multiple steroid injections s/p surgical intervention - scheduled APAP 1000mg TID - lidocaine patch to back - can consider interventional anesthesia if he desires intervention, but sounds as if they have not been effective for him in the past. #CAD with hx of PCI - per reports had staged PCI ~ 3 years ago. Was taking full dose ASA multiple times per day for pain, off since Nov due to SDH - BB, statin -holding ASA #Essential Tremor - plan was for focused ultrasound but work up revealed inciden margoth SDH. - defer to outpatient neurosrugery #Nicotine Dependence - smokes 1/2 PPD. He has no cravings at this time. - offer prn NRT (lozenges) Connie Dahl MD Thank you for the consult, we will continue to follow. Please direct initial questions to primary team Medicine Consult team can be reached at pager [phone] Total floor/unit time (reviewing and writing notes, examining the patient, revie wing test results etc) spent was 70 minutes of which > 50% was spent in care coordination and bedside counseling. __ Primary Care Physician: Jorge Luis Cuba Chief Complaint: Nasal congestion History of Present Illness: Scot Bell is a 82 y.o. male here with multiple ac [place] medical problems with a chief complaint of nasal congestion. He tells me th at his nose has been congested since last night and this is the most bothersome symptom at this time. Otherwise his symptoms are stable and unchanged. He tell s me he has a chronic cough that is productive of clear sputum that is unchanged . Most of the history is obtained from his daughter who is bedside. She tells me that they have been concerned because he has had approximately 10 pound weigh t loss down about 125 pounds since the spring. She feels that he is unable to e at and care for himself because of the essential tremor for which she was going outpatient work-up. He currently lives with 2 sons. 1 is away most of the day and the other tries to help him at home. He has chronic back pain. He previously had intervention that supplied signific ant relief but he notes over the past couple of months his back pain has been wo rse. He previously had multiple interventions including epidural steroid inject ions that he did not feel were beneficial for him. He had been taking aspirin m ultiple times per day at home prior to the SDH being found. He has been off asp irin since September. He has a history of CAD and underwent staged PCI. He is also status post TAVR a nd peripheral vascular intervention with stents and balloon angioplasty to the r ight leg per report. He has chronic claudication symptoms. Medical History: Diagnosis Date Arthritis Bleeding disorder (HCC) Hypertension PAD (peripheral artery disease) (HCC) Tremor Surgical History: Procedure Laterality Date BACK SURGERY 2016 SURGERY 2017 Iliac stents HEART VALVE SURGERY 2018 HERNIA REPAIR Double Family History Problem Relation Age of Onset Tremor Father Cancer Brother Cancer Son Social History Social History Tobacco Use Smoking status: Every Day Packs/day: 0.50 Types: Cigarettes Smokeless tobacco: Never Substance Use Topics Alcohol use: Not Currently Drug use: Not Currently Allergies: Patient has no known allergies. Medications: Medications Prior to Admission Medication Sig aspirin EC 81 mg tablet Take 81 mg by mouth daily. Plus one extra prn atorvastatin (LIPITOR) 80 mg tablet Take 80 mg by mouth daily. metoprolol tartrate (LOPRESSOR) 50 mg tablet Take 50 mg by mouth twice daily . MULTIVITAMIN PO Take 1 capsule by mouth daily. Review of Systems: A comprehensive 14-point ROS was performed and was negative except for noted in HPI Physical Exam: Vital Signs: Last Filed In 24 Hours Vital Signs: 24 Hour Range BP: 114/60 (10/25 902) Temp: 36.6 C (97.9 F) (10/25 902) Pulse: 60 (10/25 902) Respirations: 18 PER MINUTE (10/25 902) SpO2: 100 % (10/25 902) O2 Device: None (Room air) (10/25 902) SpO2 Pulse: 74 (10/25 0050) BP: (114-154)/(59-76) Temp: [36.6 C (97.9 F)-37.2 C (99 F)] Pulse: [60-62] Respirations: [18 PER MINUTE] SpO2: [96 %-100 %] O2 Device: None (Room air) General appearance: alert, poor nutritional state and cooperative. thin Eyes: PERRL EOMI Lungs: clear to auscultation bilaterally Heart: regular rate and rhythm, S1, S2 normal, holosystolic murmur heard through out Abdomen: soft, non-tender. Bowel sounds normal. Extremities: extremities normal, atraumatic, no cyanosis or edema Musculoskeletal: Moves all extremities equally Neurologic: Grossly normal, Alert and oriented, normal strength and tone. Normal coordination Skin: warm, dry, no wounds Lab/Radiology/Other Diagnostic Tests: 24-hour labs: Results for orders placed or performed during the hospital encounter of 10/24/22 (from the past 24 hour(s)) CBC AND DIFF Collection Time: 10/24/22 9:38 PM Result Value Ref Range White Blood Cells 7.5 4.5 - 11.0 K/UL RBC 3.71 (L) 4.4 - 5.5 M/UL Hemoglobin 12.5 (L) 13.5 - 16.5 GM/DL Hematocrit 37.4 (L) 40 - 50 % MCV 101.0 (H) 80 - 100 FL MCH 33.6 26 - 34 PG MCHC 33.3 32.0 - 36.0 G/DL RDW 14.4 11 - 15 % Platelet Count 116 (L) 150 - 400 K/UL MPV 9.2 7 - 11 FL Neutrophils 73 41 - 77 % Lymphocytes 12 (L) 24 - 44 % Monocytes 11 4 - 12 % Eosinophils 3 0 - 5 % Basophils 1 0 - 2 % Absolute Neutrophil Count 5.48 1.8 - 7.0 K/UL Absolute Lymph Count 0.89 (L) 1.0 - 4.8 K/UL Absolute Monocyte Count 0.85 (H) 0 - 0.80 K/UL Absolute Eosinophil Count 0.24 0 - 0.45 K/UL Absolute Basophil Count 0.06 0 - 0.20 K/UL MDW (Monocyte Distribution Width) 20.2 <20.7 COMPREHENSIVE METABOLIC PANEL Collection Time: 10/24/22 9:38 PM Result Value Ref Range Sodium 141 137 - 147 MMOL/L Potassium 3.9 3.5 - 5.1 MMOL/L Chloride 105 98 - 110 MMOL/L Glucose 95 70 - 100 MG/DL Blood Urea Nitrogen 27 (H) 7 - 25 MG/DL Creatinine 1.01 0.4 - 1.24 MG/DL Calcium 9.3 8.5 - 10.6 MG/DL Total Protein 7.1 6.0 - 8.0 G/DL Total Bilirubin 0.4 0.3 - 1.2 MG/DL Albumin 4.0 3.5 - 5.0 G/DL Alk Phosphatase 105 25 - 110 U/L AST (SGOT) 65 (H) 7 - 40 U/L CO2 26 21 - 30 MMOL/L ALT (SGPT) 63 (H) 7 - 56 U/L Anion Gap 10 3 - 12 eGFR >60 >60 mL/min PROTIME INR (PT) Collection Time: 10/24/22 9:38 PM Result Value Ref Range Protime 13.5 9.5 - 14.2 SEC INR 1.2 0.8 - 1.2 MAGNESIUM Collection Time: 10/24/22 9:38 PM Result Value Ref Range Magnesium 2.2 1.6 - 2.6 mg/dL URINALYSIS DIPSTICK REFLEX TO CULTURE Collection Time: 10/24/22 9:38 PM Specimen: Urine Result Value Ref Range Color,UA YELLOW Turbidity,UA CLEAR CLEAR-CLEAR Specific [place]-Urine 1.028 1.005 - 1.030 pH,UA 5.0 5.0 - 8.0 Protein,UA 2+ (A) NEG-NEG Glucose,UA NEG NEG-NEG Ketones,UA NEG NEG-NEG Bilirubin,UA NEG NEG-NEG Blood,UA 3+ (A) NEG-NEG Urobilinogen,UA NORMAL NORM-NORMAL Nitrite,UA NEG NEG-NEG Leukocytes,UA NEG NEG-NEG Urine Ascorbic Acid, UA NEG NEG-NEG URINALYSIS MICROSCOPIC REFLEX TO CULTURE Collection Time: 10/24/22 9:38 PM Specimen: Urine Result Value Ref Range WBCs,UA 0-2 0 - 2 /HPF RBCs,UA PACKED 0 - 3 /HPF Comment,UA Criteria for reflex to culture are WBC>10, Positive Nitrite, and/or >=+1 leukocytes. If quantity is not sufficient, an addendum will follow. Squamous Epithelial Cells 0-2 0 - 5 TSH WITH FREE T4 REFLEX Collection Time: 10/24/22 9:38 PM Result Value Ref Range TSH 1.43 0.35 - 5.00 MCU/ML POC GLUCOSE Collection Time: 10/24/22 9:40 PM Result Value Ref Range Glucose, POC 98 70 - 100 MG/DL LIPID PROFILE Collection Time: 10/25/22 7:12 AM Result Value Ref Range Cholesterol 115 <200 MG/DL Triglycerides 190 (H) <150 MG/DL HDL 25 (L) >40 MG/DL LDL 62 <100 mg/dL VLDL 38 MG/DL Non HDL Cholesterol 90 MG/DL Glucose: 95 (10/24/222137) POC Glucose (Download): 98 (10/24/222139) Reviewed the following pertinent radiology image(s): CT head, CTA head/neck I have reviewed chart. Connie Dahl MD Pager: [phone] Voalte: Connie Dahl RIBUTOR OPERATOR * Nehemias Blanchard MD - 10/24/2022 10:57 PM CSTAssociated Order(s): CONSULT NEUROSURGERY PHYSICIAN Neurosurgery Consult History and Physical Examination Scot Bell Admission Date: 10/24/2022 Assessment/Plan: Scot Bell is a 82 y.o. male with PMH of HTN, tremor, current smoker 25 pk-yr, CAD and stenting, on RETIREMENT SALES CONSULTANT ASA81, who neurosurgery was consulted for right acute on chronic SDH. The patient has baseline mixed tremor symptoms in the BUE. He is otherwise neuro logically in tact. CT Head from OSH was reviewed which demonstrated acute on chr onic R convexity SDH with 4-5 mm midline shift. - No acute neurosurgical intervention - recommend neurology consultation for stroke workup - Hold all anticoagulation - SBP < 140 - CT head on admission for stability scan - INR goal < 1.6 and Plt goal > 80 - Keppra 500 BID x 7 days - Q4h and tele status - HOB 30 degrees - Please call with any change in neuro exam - Patient and plan discussed with neurosurgery neurosurgery attending Dr. Cheema on - Please call [phone] with any changes in neurologic exam, questions, or concerns. Nehemias Blanchard MD Voalte Sd Chief Complaint: R SDH History of Present Illness: Scot Bell is a 82 y.o. male with PMH of HTN, tremor, current smoker 25 pk-yr, CAD and stenting, on RETIREMENT SALES CONSULTANT ASA81, who neurosurgery was consulted for right acute on chronic SDH. The patient is followed by Dr. Rogers and Dr. March. The patient was to under go focused ultrasound thalmatomy with Dr. Rogers, however the patient was noted to have a R SDH on workup imaging. He was referred to Dr. March for MMA embol ization. He was discussed to be entered in a clinical trial looking at medical m anagement and observation vs. MMA embolization for treatment. Last clinic evalua tion was 10/15/2022 with plans for return appointment after evaluation of placeme nt into the trial. The patient's daughter, Tamika, called the clinic phone today from [facility] the patient had been confused today and has had intermittent confusion w ith intermittent numbness/weakness in the lower extremities. He was reporting he adache. CT was obtained at [facility] which was reviewed by Dr. March. He was advised to present to [facility] for stroke workup. On bedside evaluation, the patient reports mild headaches and trouble with his w alking. He otherwise denies vision changes, nausea, vomiting, motor or sensory c hanges, bowel or bladder incontinence. Past Medical History: Medical History: Diagnosis Date Arthritis Bleeding disorder (HCC) Hypertension PAD (peripheral artery disease) (HCC) Tremor Past Surgical History: Surgical History: Procedure Laterality Date BACK SURGERY 2016 SURGERY 2017 Iliac stents HEART VALVE SURGERY 2018 HERNIA REPAIR Double Social History: Social History Tobacco Use Smoking status: Every Day Packs/day: 0.50 Types: Cigarettes Smokeless tobacco: Never Substance Use Topics Alcohol use: Not Currently Drug use: Not Currently Family History: Family History Problem Relation Age of Onset Tremor Father Cancer Brother Cancer Son Allergies: Patient has no known allergies. Medications: Not on RETIREMENT SALES CONSULTANT AC per patient, ASA81 noted in chart Review of Systems: Full 10 point review of systems negative except for HPI Physical Exam: Vital Signs: Last Filed In 24 Hours Vital Signs: 24 Hour Range BP: 150/75 (10/24 2138) Temp: 37.2 C (99 F) (10/24 1704) Pulse: 61 (10/24 1704) Respirations: 18 PER MINUTE (10/24 170) SpO2: 97 % (10/248) O2 Device: None (Room air) (10/24 1704) SpO2 Pulse: 60 (10/24 2138) BP: (145-150)/(75-76) Temp: [37.2 C (99 F)] Pulse: [61] Respirations: [18 PER MINUTE] SpO2: [97 %-98 %] O2 Device: None (Room air) General appearance: No acute distress Lungs: symmetric chest rise, non labored breathing Heart: Regular rate and rhythm Gastrointestinal: Soft, non-distended Musculoskeletal: Atraumatic, no significant edema Skin: No obvious skin lesion or rash Psychiatric: Normal affect Neurologic Exam: Mental Status: Awake, alert and oriented x 4, fluent speech, normal cognition Pupils: Pupils equal round and reactive to light Cranial Nerves: CN II-XII individually tested and found to be intact, gag not te sted Vision: within normal to confrontation Motor: Mixed tremor AA EF EE WF WE FF FE FA G HF KF KE DF PF EHL Left 5 5 5 5 5 5 5 5 5 5 5 5 5 5 5 Right 5 5 5 5 5 5 5 5 5 5 5 5 5 5 5 Normal muscle bulk and tone No pronator drift Sensation: Sensation intact to light touch throughout Plantar responses toes downgoing bilaterally No clonus bilaterally No diego bilaterally Gait: deferred Cerebellar: bilateral intention tremor Lab Tests: Hematology: Lab Results Component Value Date HGB 12.5 10/24/2022 HCT 37.4 10/24/2022 PLTCT 116 10/24/2022 WBC 7.5 10/24/2022 NEUT 73 10/24/2022 ANC 5.48 10/24/2022 ALC 0.89 10/24/2022 MAGNUS 11 10/24/2022 AMC 0.85 10/24/2022 ABC 0.06 10/24/2022 MCV 101.0 10/24/2022 MCHC 33.3 10/24/2022 MPV 9.2 10/24/2022 RDW 14.4 10/24/2022 General Chemistry: Lab Results Component Value Date NA 141 10/24/2022 K 3.9 10/24/2022 CL 105 10/24/2022 CO2 26 10/24/2022 BUN 27 10/24/2022 CR 1.01 10/24/2022 GLU 95 10/24/2022 CA 9.3 10/24/2022 MG 2.2 10/24/2022 General Chemistry: Lab Results Component Value Date GAP 10 10/24/2022 ALBUMIN 4.0 10/24/2022 TOTBILI 0.4 10/24/2022 TOTPROT 7.1 10/24/2022 AST 65 10/24/2022 ALT 63 10/24/2022 ALKPHOS 105 10/24/2022 Radiology and other Diagnostics Review: Pertinent imaging reviewed. CT from OSH reviewed which shows 8 mm right acute on chronic SDH with minimal 3-4 mm midline shift. RIBUTOR OPERATOR Associated attestation - Portillo March MD - 10/31/2022 6:42 AM DISTRIBUTOR OPERATOR ATTESTATION I personally performed the torres portions of the E/M visit, discussed case with re sident and concur with resident documentation of history, physical exam, assessm ent, and treatment plan unless otherwise noted. Patient was evaluated on 10/25/2022. At this point we will continue evaluation for his right chronic subdural hematom a and discussion about potential for embolization. However, would like stroke n eurology to perform a significant evaluation for any hypercoagulable state given that he has presented with a subacute right posterior cerebral artery stroke. Staff name: Portillo March MD Date: 10/31/2022 * Petr Almonte, - 10/24/2022 10:27 PM CSTAssociated Order(s): CONSULT NEUROLOGY PHYSICIAN Neurology Consultation Name: Scot Bell Admission Date: 10/24/2022 LOS: 0 days ED31/31 ASSESSMENT: Active Problems: * No active hospital problems. * Consult type: Opinion with orders Reason for consult: Subacute stroke seen on imaging Scot Bell is a 82 y.o. male with pertinent PMHx of chronic subdural hematoma , essential tremor, HTN, PAD, that presented on 10/24/[address] find ings concerning for possible stroke. Neuro exam reveals LUQ visual field deficit, poor balance on standing and with g ait, bilateral postural and kinetic tremor, otherwise intact cranial nerves, no focal motor deficits, and only mild vibration sensory decrease in bilateral feet Imaging/Diagnostic Studies: CT Head from outside facility (radiology report available in Media tab): "There is a right subdural hemorrhage that may be a combination of acute and chr onic bleeding. There is some associated midline shift. Areas of low density in the brain are probably regions of his recent ischemic injury. Attempts to acqu don a prior comparison study were unsuccessful. The patient reportedly has chris el to a different facility for evaluation where he has been treated previously." CT Head 10/24/22: 1. Development of a moderate-sized hypodensity within the posterior medial occipitotemporal lobe likely representing a evolving late subacute right GENERATOR ASSEMBLER infarct. 2. New hypodensities within the mixed density subdural hematoma along the right cerebral convexity, likely represent interval bleeding. The subdural hematoma is stable in size producing stable mass effect resulting in 6 mm of leftward midline shift. No descending herniation or hydrocephalus. 3. Stable mild patchy supratentorial white matter hypodensities, likely sequelae of chronic microvascular ischemic change. 4. Tiny low-density is now present along the lateral right cerebellum likely interval small lacunar type infarct. Problem List: 1) Acute on chronic right subdural hemorrhage 2) Subacute Right GENERATOR ASSEMBLER stroke 3) Essential tremor Impression: Patient presents with increasing bilateral L> R weakness and sensation of numbness over the last 2-[address] head obtained showed late subacute right medial occipitotemporal stroke, along with a small lacunar type stroke in the lateral right cerebellum. His chronic subdural hematoma was relatively stable in size but now with mixed interval bleeding. Patient's daughter was also concerned for jerking movements of the LLE, however none were witnessed during interview or exam today, but could possibly represent focal m otor seizure in setting of his chronic subdural hematoma. Patient's exam did no t reveal any focal left-sided weakness or sensory deficit (mild decrease bilater al vibratory sensation). As patient's symptoms have been on clear onset, howeve r at least 2 to 3 weeks ago, and presence of subdural hemorrhage, he is not a ca ndidate for acute stroke intervention at this time. However, would still recomm end pursuing additional stroke risk factor work-up as detailed below. RECOMMENDATIONS: > Not a stroke intervention candidate given age indeterminate onset of symptoms (at least 2 to 3 weeks) and presence of chronic subdural hemorrhage > MRI head WO > Stroke risk factor assessment: Labs to include FLP, A1c Echocardiogram Vascular Imaging: CTA Head/Neck Telemetry to monitor for arrhythmia Evaluation of smoking history and smoking cessation consult if tobaccoism prese nt Antiplatelet therapy: hold ASA for now in setting of subdural hematoma, but tian l recommend starting when safe from Neurosurgery standpoint > CBC, BMP routine > PT/OT/BUILDING TRADES INSTRUCTOR consult eval and treat > Rehab consult for assessment of post stroke care > Order [id number] "RN Stroke Dysphagia screening (swallow eval)" > Please call NEP chief unit forester ([phone]) for non-ICU patient and NEI chief unit forester [phone]) to perform the NIHSS and dysphagia screen. > Strict NPO until swallow evaluation completed > SCDs for DVT prevention > If concern remains for focal motor seizures of LLE, consider starting Keppra Thank you for allowing us to participate in the care of this patient. Please pag e neurology tongue and groove machine feeder with any further questions or concerns. Patient plan of care discussed with Dr. Dean and communicated to primary team. Petr Almonte, DO Neurology, PGY-2 Available on Voalte Consult pager [phone] __ History of Present Illness: Scot Bell is a 82 y.o. male with PMHx of chronic subdural hemorrhage, essential tremor, HTN, PAD s/p stent and ballooning, CAD s /p stent, heart valve replacements, arthritis of the low back, that presented on 10/24/[address] findings concerning for possible stroke. Patient also recently presented to hospital with brief episodes of bilateral LE "numbness". He describes brief episodes of loss of sensation and feeling like h is legs were giving out. History obtained from patient and his daughter. They report that the patient has had 2-3 weeks of intermittent bilateral L> R LE numbness and weakness, causing difficulty walking. Previously had been occurring multiple times daily, with normal periods in between. However today, the symptoms have been constant. He reported that his legs felt heavy and could not lift them up as much. His daughter also notes that with his gait he was leaning a little to the left and keeping his left arm dangling as well. He was having difficulty getting his left leg to move forward. He denies any of the same heaviness or numbness in his arms. His daughter also notes that he has been having some muscle spasms uncontrollable in his left leg, and even occurred while sitting in the hospital room. She describes it is an arhythmic jerk-ing like movment with his left leg that looked like it was coming from below the knee. His daughter also notes a couple of instances today where he had very brief situ ational episodes of confusion like turning down the wrong hallway, or forgetting why he walked into a room. Due to these concerns, the patient called Neurosurgery clinic who recommended CT Head at outside hospital which showed his right subdural hemorrhage and areas of possible recent ischemic injury, and came to [facility] for further workup/management. He denies any visual disturbances, slurred speech, difficulty word finding, faci al droop, difficulty swallowing. He reports a dull headache all day, but no complaints of fever, chills, chest pa in, dyspnea, nausea, vomiting. Of note, patient has a history of essential tremor, and has recently been seen i n movement disorder clinic in September 2022. He also has a history of chronic s ubdural hematoma for which she follows with neurosurgery. Medical History: Diagnosis Date Arthritis Bleeding disorder (HCC) Hypertension PAD (peripheral artery disease) (HCC) Tremor Surgical History: Procedure Laterality Date BACK SURGERY 2016 SURGERY 2017 Iliac stents HEART VALVE SURGERY 2018 HERNIA REPAIR Double Social History Socioeconomic History Marital status: Single Tobacco Use Smoking status: Every Day Packs/day: 0.50 Types: Cigarettes Smokeless tobacco: Never Substance and Sexual Activity Alcohol use: Not Currently Drug use: Not Currently Family History Problem Relation Age of Onset Tremor Father Cancer Brother Cancer Son Immunizations (includes history and patient reported): There is no immunization history on file for this patient. Allergies: Patient has no known allergies. Medications: Current Facility-Administered Medications Medication acetaminophen (TYLENOL) tablet 650 mg atorvastatin (LIPITOR) tablet 80 mg docusate (COLACE) capsule 100 mg hydrALAZINE (APRESOLINE) injection 10 mg labetaloL (NORMODYNE) injection 10 mg levETIRAcetam (KEPPRA) tablet 500 mg metoprolol tartrate (LOPRESSOR) tablet 50 mg milk of magnesia (CONC) oral suspension 10 mL ondansetron (ZOFRAN) injection 4 mg oxyCODONE (ROXICODONE) tablet 5-10 mg senna/docusate (SENOKOT-S) tablet 1 tablet Current Outpatient Medications Medication Sig aspirin EC 81 mg tablet Take 81 mg by mouth daily. Plus one extra prn atorvastatin (LIPITOR) 80 mg tablet Take 80 mg by mouth daily. metoprolol tartrate (LOPRESSOR) 50 mg tablet Take 50 mg by mouth twice daily . MULTIVITAMIN PO Take 1 capsule by mouth daily. No current facility-administered medications on file prior to encounter. Current Outpatient Medications on File Prior to Encounter Medication Sig Dispense Refill aspirin EC 81 mg tablet Take 81 mg by mouth daily. Plus one extra prn atorvastatin (LIPITOR) 80 mg tablet Take 80 mg by mouth daily. metoprolol tartrate (LOPRESSOR) 50 mg tablet Take 50 mg by mouth twice daily . MULTIVITAMIN PO Take 1 capsule by mouth daily. Review of Systems: All other systems were negative except as noted above in the HPI. Physical Exam: Vital Signs: Last Filed In 24 Hours Vital Signs: 24 Hour Range BP: 150/75 (10/24 2138) Temp: 37.2 C (99 F) (10/24 1704) Pulse: 61 (10/24 1704) Respirations: 18 PER MINUTE (10/24 1704) SpO2: 97 % (10/24 2138) O2 Device: None (Room air) (10/24 1704) SpO2 Pulse: 60 (10/24 2138) BP: (145-150)/(75-76) Temp: [37.2 C (99 F)] Pulse: [61] Respirations: [18 PER MINUTE] SpO2: [97 %-98 %] O2 Device: None (Room air) HEENT: normocephalic, eyes open with no discharge Chest: normal configuration, non labored breathing, chest rise equal b/l Skin: no rashes or lesions Psych: normal Neuro: Mental status: Oriented to person/place/time/situation Memory: Recent and remote memory intact Attention: Good span, follows conversation. Fund of knowledge: Appropriate Level of consciousness: Alert Speech: Fluency: Normal Comprehension: Normal Articulation: Normal Repetition: Normal Naming: Normal CN II-XII: LUQ visual field deficit , PERRL, EOMI, facial sensation intact. Symm etrical facial movement. 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 Strong cough, elevates palate b/l, uvula midline. Strong shoulder shrug. Tongue midline. Motor: Normal tone and bulk. No resting tremor, positive bilateral postural and kinetic tremor. R L R L Neck flexors Hip flexors 5 5 Neck extensors Hip abductors Shoulder Abductors 5 5 Hip extensors Elbow flexors 5 5 Hip adductors Elbow extensors 5 5 Knee flexors 5 5 Wrist flexors 5 5 Knee extensors 5 5 Wrist extensors 5 5 Ankle dorsiflexors 5 5 Finger flexors 5 5 Ankle plantar flexors 5 5 Finger abductors Ankle inversion Ankle eversion Toe flexors Toe extensors Sensory: Light touch: intact, without sensory level Pin prick: intact Vibration (tuning fork 128 Hz): dec 5s bilateral big toes Romberg sign: absent Reflexes: No clonus, rinku, cross adductor. Babinski absent. Right Left Triceps 2 2 Biceps 2 2 Brachioradialis 2 2 Patella 2 2 Ankle 2 2 Cerebellar Function/fine movement: FTN with difficulty due to patient's kinetic tremor (baseline per patient and family), heel to wesley normal Gait: Difficult rise from seated position; decreased stride length and difficult y with balance, very unsteady with tandem stance, unable to toe walk, heel walk or tandem walk Lab/Radiology/Other Diagnostic Tests: 24-hour labs: Results for orders placed or performed during the hospital encounter of 10/24/22 (from the past 24 hour(s)) CBC AND DIFF Collection Time: 10/24/22 9:38 PM Result Value Ref Range White Blood Cells 7.5 4.5 - 11.0 K/UL RBC 3.71 (L) 4.4 - 5.5 M/UL Hemoglobin 12.5 (L) 13.5 - 16.5 GM/DL Hematocrit 37.4 (L) 40 - 50 % MCV 101.0 (H) 80 - 100 FL MCH 33.6 26 - 34 PG MCHC 33.3 32.0 - 36.0 G/DL RDW 14.4 11 - 15 % Platelet Count 116 (L) 150 - 400 K/UL MPV 9.2 7 - 11 FL Neutrophils 73 41 - 77 % Lymphocytes 12 (L) 24 - 44 % Monocytes 11 4 - 12 % Eosinophils 3 0 - 5 % Basophils 1 0 - 2 % Absolute Neutrophil Count 5.48 1.8 - 7.0 K/UL Absolute Lymph Count 0.89 (L) 1.0 - 4.8 K/UL Absolute Monocyte Count 0.85 (H) 0 - 0.80 K/UL Absolute Eosinophil Count 0.24 0 - 0.45 K/UL Absolute Basophil Count 0.06 0 - 0.20 K/UL MDW (Monocyte Distribution Width) 20.2 <20.7 COMPREHENSIVE METABOLIC PANEL Collection Time: 10/24/22 9:38 PM Result Value Ref Range Sodium 141 137 - 147 MMOL/L Potassium 3.9 3.5 - 5.1 MMOL/L Chloride 105 98 - 110 MMOL/L Glucose 95 70 - 100 MG/DL Blood Urea Nitrogen 27 (H) 7 - 25 MG/DL Creatinine 1.01 0.4 - 1.24 MG/DL Calcium 9.3 8.5 - 10.6 MG/DL Total Protein 7.1 6.0 - 8.0 G/DL Total Bilirubin 0.4 0.3 - 1.2 MG/DL Albumin 4.0 3.5 - 5.0 G/DL Alk Phosphatase 105 25 - 110 U/L AST (SGOT) 65 (H) 7 - 40 U/L CO2 26 21 - 30 MMOL/L ALT (SGPT) 63 (H) 7 - 56 U/L Anion Gap 10 3 - 12 eGFR >60 >60 mL/min PROTIME INR (PT) Collection Time: 10/24/22 9:38 PM Result Value Ref Range Protime 13.5 9.5 - 14.2 SEC INR 1.2 0.8 - 1.2 MAGNESIUM Collection Time: 10/24/22 9:38 PM Result Value Ref Range Magnesium 2.2 1.6 - 2.6 mg/dL URINALYSIS DIPSTICK REFLEX TO CULTURE Collection Time: 10/24/22 9:38 PM Specimen: Urine Result Value Ref Range Color,UA YELLOW Turbidity,UA CLEAR CLEAR-CLEAR Specific [place]-Urine 1.028 1.005 - 1.030 pH,UA 5.0 5.0 - 8.0 Protein,UA 2+ (A) NEG-NEG Glucose,UA NEG NEG-NEG Ketones,UA NEG NEG-NEG Bilirubin,UA NEG NEG-NEG Blood,UA 3+ (A) NEG-NEG Urobilinogen,UA NORMAL NORM-NORMAL Nitrite,UA NEG NEG-NEG Leukocytes,UA NEG NEG-NEG Urine Ascorbic Acid, UA NEG NEG-NEG URINALYSIS MICROSCOPIC REFLEX TO CULTURE Collection Time: 10/24/22 9:38 PM Specimen: Urine Result Value Ref Range WBCs,UA 0-2 0 - 2 /HPF RBCs,UA PACKED 0 - 3 /HPF Comment,UA Criteria for reflex to culture are WBC>10, Positive Nitrite, and/or >=+1 leukocytes. If quantity is not sufficient, an addendum will follow. Squamous Epithelial Cells 0-2 0 - 5 TSH WITH FREE T4 REFLEX Collection Time: 10/24/22 9:38 PM Result Value Ref Range TSH 1.43 0.35 - 5.00 MCU/ML POC GLUCOSE Collection Time: 10/24/22 9:40 PM Result Value Ref Range Glucose, POC 98 70 - 100 MG/DL Glucose: 95 (10/24/222137) POC Glucose (Download): 98 (10/24/222139) Pertinent radiology reviewed. Petr Almonte DO Neurology Resident Consult pager [phone] RIBUTOR OPERATOR Associated attestation - Judith Dean MD - 10/29/2022 8:36 PM DISTRIBUTOR OPERATOR ATTESTATION (LATE ENTRY) I personally performed the torres portions of the E/M visit, discussed case with re sident and concur with resident documentation of history, physical exam, assessm ent, and treatment plan unless otherwise noted. I saw and examined the patient today on rounds with Dr. Wallis. The patient was undergoing an echocardiogram when I came by to see him so we did not get to disc uss his situation at length. Laboratory results were reviewed. WBC 7.5. RBC 3.71. Hgb 12.5. MCV 101.0. RDW 14 .4. Platelets 116k. 12% lymphocytes. 11% monocytes. ALC 890. AMC 850. Protime 13 .5. INR 1.2. Sodium 141. Potassium 3.9. Chloride 105. CO2 26. Anion gap 10. BUN 27. Cr 1.01. eGFR > 60. Glucose 95. Calcium 9.3. Albumin 4.0. Total protein 7.1. Total bilirubin 0.4. Magnesium 2.2. AST 65. ALT 63. Alk phos 105. TSH 1.43. UA: yellow, clear, specific gravity 1.028, pH 5.0, negative glucose, negative ketones, negative bilirubin, 2+ protein, normal urobilinogen, 3+ heme, negative nitrite, negative leukocyte esterase, negative urine ascorbic acid, 0-2 WBCs, and packed RBCs. Independent review of his head CT without contrast from yesterday, October 24, 2022 shows evidence of: Right cerebral convex to the mixed density subdural vanessa mihaela with increase in conspicuity of hyperdense components. Subdural hematoma is similar in size measuring 0.9 cm, previously 0.9 cm when measured similarly. Th ere is similar mass effect on the right cerebral hemisphere producing 6 mm of le ftward midline shift. The right lateral ventricle remains partially effaced. The left lateral ventricle is nondilated. No descending herniation. Development of a moderate-sized area of hypodensity within the posteromedial occipitotemporal l obe. Tiny low-density is now present along the right lateral cerebellum. The singh tricles and subarachnoid spaces are otherwise normal in size and configuration. Stable mild patchy supratentorial white matter hypodensities. Dilated perivascul ar spaces along the inferior lentiform nuclei. The estrada-white matter interfaces are otherwise maintained. The basal cisterns are patent. The mastoid air cells a nd visualized paranasal sinuses are well-aerated. Bilateral lens replacements. Review of his head CT angiogram with and without contrast from today, October 102021 by report describes: Redemonstration of a small to moderately sized suba cute right basal and mesial occipitotemporal [posterior cerebral arterial] GENERATOR ASSEMBLER t erritory [ischemic stroke] and a tiny recent right posterolateral cerebellar [is chemic stroke]. Retrospectively stable additional small cortical [ischemic strok e] along the right mid cingulate sulcus, new since CT head 10/12/2022. There is p ersistent associated right occipitotemporal mass effect with effacement of the r ight lateral ventricular temporal horn and likely associated minor entrapment an teriorly, given asymmetric enlargement and increased in size since head CT 2021. There is no evidence of hemorrhagic conversion of [ischemic stroke]. There has been no significant interval change in size of the lateral right cerebral c onvexity mixed attenuating subdural hematoma, currently measuring up to 1.2 cm i n depth. There is persistent associated intracranial mass effect with up to 0.5 cm of leftward midline shift. No descending herniation. Prominent perivascular s paces are present within the inferior basal ganglia. There are mild underlying p atchy cerebral white matter hypodensities, consistent with nonspecific white mat ter disease. Tiny chronic left cerebellar [ischemic stroke]. Densely calcified a therosclerotic plaque throughout the carotid siphons resulting in multifocal ath erosclerotic luminal stenoses, most pronounced and of mild to moderate degree in volving the right cavernous segment. Hypoplastic-atretic right A1 segment. The r ight anterior cerebral artery (RODOLFO) is supplied via a patent left A1 segment and anterior communicating artery. Calcified atherosclerotic plaque involving the s upracallosal left RODOLFO likely with at least moderate associated luminal narrowing . The distal anterior cerebral arteries remain patent. Multifocal luminal irregu larity of the bilateral middle cerebral arteries with a short segment of severe right supraclinoid ICA luminal stenosis. The distal cervical vertebral arteries are patent, including the [non-dominant] left vertebral artery which terminates predominantly in [posterior inferior cerebellar arterial] (PICA). There is multi focal calcified atherosclerotic plaque involving the intracranial vertebral mar bhavin, more pronounced in the left, resulting in multifocal left vertebral lumina l stenoses, of severe degree just beyond the PICA origin. Diminutive caliber of the left distal V4 segment. The basilar artery is tortuous and widely patent. Th e bilateral posterior cerebral arteries are patent. No aneurysm or arteriovenous malformation (AVM) is identified. Review of his neck CT angiogram with and without contrast from today, October 102021 describes: There is mixed density, calcified and noncalcified atheroscle rotic plaque involving the aortic arch and great vessel origins. Multifocal mild to moderate atherosclerotic luminal stenoses involving the visualized subclavian arteries, most notable involving the proximal left subclavian artery and origin. Mixed density, though, predominantly noncalcified plaque at the vertebral artery origins resulting in a severe left vertebral origin stenosis. Additional mul tifocal luminal irregularity and at least moderate luminal stenosis throughout t he course of the small caliber left cervical vertebral artery. Scattered atheros clerotic plaque and mild spondylitic narrowing along the course of the right cer vical vertebral artery. Mixed density atherosclerotic plaque involving the bilat eral common carotid arteries resulting in up to moderate stenosis of the left mi d common carotid artery. Mixed density, though, predominantly calcified atherosc lerotic plaque at the left carotid bifurcation and proximal cervical ICA resulti ng in less than 40% luminal stenosis of the left ICA origin. Mixed density ather osclerotic plaque involving the proximal left cervical internal carotid artery w ithout hemodynamically significant associated luminal stenosis by NASCET criteri a. No aneurysm, AVM, or dissection is identified. The cervical soft tissues are unremarkable. Scattered calcified parotid sialoliths. The paranasal sinus and ma stoid air cells are clear. Mild cervical spondylosis. There is centrilobular emp hysema and mild diffuse pulmonary septal thickening. There is an irregular, foca l [mass-like] opacity in the right upper lobe with additional underlying patchy areas of tree-in-bud and groundglass pulmonary opacities throughout the visualiz ed upper lungs. Multi-station mediastinal and hilar lymphadenopathy, with a few scattered calcified mediastinal and hilar granulomas. I reviewed Dr. Almonte's impression and summarize my own impression as follows: - Multiple vascular territory arterial ischemic strokes, subacute. Due to serial head CT scans (September 27, 2022 then October 10, 2022 then [facility] 2021 and now October 24, 2022), it is clear that the development of these new hypodensities has occurred over the past 13 days (between October 12 and ), which is consistent with a subacute timeline. Otherwise, age determi nation purely from a head CT can be challenging and variable. The most conspicuous stroke is of at least moderate size in the right posterior cerebral arterial (GENERATOR ASSEMBLER) territory. The tiny right lateral cerebellar stroke is likely also within the vertebrobasil ar (posterior circulation) distribution. The small medial right frontal mid-cingulate stroke (not described on initial he ad CT 10/24 10:51 p.m. but noted on head CT angiogram 10/25 9:49 a.m.) is likely supplied by pericallosal arteries branching from the right anterior cerebral ar choco (RODOLFO). So now with the new right frontal stroke, the involvement of bilateral cerebrova scular territories as well as both the anterior and posterior circulations is mo st suggestive of a cardioembolic source. Because of his chronic subdural hematoma, use of even a single antiplatelet agen t let alone dual antiplatelet therapy (DAPT) or anticoagulation would be problem atic and fraught with severe risk of worsening hemorrhage. - Chronic subdural hematoma. This was incidentally noted as mixed density (implying different times of hemorr romario) on head CT and there have been no reports of falls. Spontaneous bleeding can certainly occur but is much less likely in the setting of only mild thrombocytopenia. - Chronic cerebral ischemia, moderate. This was reported as mild but the presence of clusters of (rather than scattered ) white matter disease is more consistent with a moderate degree. - Intracranial arterial stenosis. He has known peripheral arterial disease (PAD) and now has identified narrowing of intracranial portions of both the anterior and posterior circulations. He also has cervical carotid and vertebral stenosis due to extensive atheroscler otic disease. - Vertebrobasilar dolichoectasia. This arteriopathy can cause cerebral ischemia through multiple mechanisms includ ing potentially abnormal thrombus/embolism formation or by stretching and/or oc clusion of arising small penetrating arteries [SHAHNAZ Villatoro et al. Stroke (2020 );52(7):3198-8787. PMID: [id number]]. - Familial essential tremor. The patient was seen about six weeks ago in our [facility] and was planning for focused ultrasound thalamotomy when the subdural hematoma was i ncidentally noted. Both his father and sister developed tremor confirming an autosomal dominant pat tern of inheritance. - Decreased vibratory sense. This is certainly more common with increasing age. He does not have diabetes mellitus, excessive alcohol use (although he reportedl y described some improvement in his tremor with alcohol), vitamin B12 deficiency , or a globulin gap (to suggest an M paraproteinemia). I agree with Dr. Almonte's recommendations from overnight. Please also see the pr ogress note written by Dr. Wallis today, October 25, 2022 after rounds for jennifer tional details. Thank you for requesting a neurology consultation. Neurology will continue to fo llow closely but please call with any questions. Judith Dean MD Date: October 25, 2022 Neurology/Movement Disorders Attending Pager [phone] or Voalte documented in this encounter Nursing Notes * Hermann Shah MD - 10/27/2022 11:25 PM CST Reviewed 1 hr stat EEG - Continuous generalized delta theta slowing with reactivity. No epileptiform activity or seizures. Full report to follow. Hermann Shah MD RIBUTOR OPERATOR documented in this encounter ED Notes * Hunter Hernandez MD - 10/25/2022 10:03 AM CST Images from the original note were not included. Scot Bell is a 82 y.o. male. Chief Complaint: Chief Complaint Patient presents with Extremity Weakness All extremity weakness - tremors - gargled speech - all symptoms x2 weeks - se en at [facility] today and told he has a subdural hematoma and possible stroke and told to come to this ER History of Present Illness: Patient is an 82-year-old male with history of hypertension, type PAD, chronic s ubdural hematoma, tremors who presents to the emergency department for worsening bilateral lower extremity weakness. He is accompanied by his daughter who prov ides additional history. She noticed acutely today his worsening leg weakness, leaning to the left side with ambulating, new left lower extremity tremor and wo rsened confusion. Patient also endorses a generalized headache and intermittent bilateral foot numbness that is chronic. He is currently alert and oriented x4, states these symptoms have likely been present intermittently since yesterday however is unsure. Patient follows with neurology and neurosurgery, his daug hter contacted Dr. March with neurosurgery today who ordered a head CT at a [facility] facility in [place], [place] head done around noon today - was reportedly abnorm al and was prompted by Dr. March to report to ED for stroke work-up however d etails are unknown. Is not on blood thinners. Denies recent falls. Patient miguel es with another family member. Denies vision changes, chest pain, shortness of breath, nausea/vomiting, diarrhea, abdominal pain, dysuria, fevers or chills, li ghtheadedness or dizziness. Review of Systems: Review of Systems Constitutional: Negative. Negative for activity change, chills, diaphoresis and fever. HENT: Negative. Negative for congestion, ear pain and sore throat. Eyes: Negative. Negative for pain and visual disturbance. Respiratory: Negative. Negative for cough and shortness of breath. Cardiovascular: Negative. Negative for chest pain. Gastrointestinal: Negative. Negative for abdominal pain, diarrhea, nausea and v omiting. Endocrine: Negative. Genitourinary: Negative. Negative for dysuria and flank pain. Musculoskeletal: Positive for gait problem. Negative for back pain, myalgias and neck pain. Skin: Negative. Negative for rash and wound. Neurological: Positive for weakness, numbness and headaches. Negative for dizzin ess, speech difficulty and light-headedness. Hematological: Negative. Does not bruise/bleed easily. Psychiatric/Behavioral: Positive for confusion. All other systems reviewed and are negative. Allergies: Patient has no known allergies. Past Medical History: Medical History: Diagnosis Date Arthritis Bleeding disorder (HCC) Hypertension PAD (peripheral artery disease) (HCC) Tremor Past Surgical History: Surgical History: Procedure Laterality Date BACK SURGERY 2016 SURGERY 2017 Iliac stents HEART VALVE SURGERY 2018 HERNIA REPAIR Double Medical History: Diagnosis Date Arthritis Bleeding disorder (HCC) Hypertension PAD (peripheral artery disease) (HCC) Tremor Surgical History: Procedure Laterality Date BACK SURGERY 2016 SURGERY 2017 Iliac stents HEART VALVE SURGERY 2018 HERNIA REPAIR Double Social History: Social History Tobacco Use Smoking status: Every Day Packs/day: 0.50 Types: Cigarettes Smokeless tobacco: Never Vaping Use Vaping Use: Never used Substance Use Topics Alcohol use: Not Currently Drug use: Not Currently Social History Substance and Sexual Activity Drug Use Not Currently Family History: Family History Problem Relation Age of Onset Tremor Father Cancer Brother Cancer Son Vitals: ED Vitals Date and Time T BP P RR SPO2P SPO2 User 10/25/22 0050 -- -- -- -- 74 97 % 10/25/22 0049 -- -- -- -- 85 96 % 10/25/22 0000 -- 145/59 -- -- 62 -- 10/24/22 2138 -- 150/75 -- -- 60 97 % SF 10/24/22 1704 37.2 C (99 F) 145/76 61 18 PER MINUTE 61 98 % YOMI Physical Exam: Physical Exam Vitals and nursing note reviewed. Constitutional: General: He is not in acute distress. Appearance: Normal appearance. He is well-developed and normal weight. He is not diaphoretic. HENT: Head: Normocephalic and atraumatic. Right Ear: External ear normal. Left Ear: External ear normal. Nose: Nose normal. Mouth/Throat: Mouth: Mucous membranes are moist. Pharynx: Oropharynx is clear. Eyes: General: Right eye: No discharge. Left eye: No discharge. Extraocular Movements: Extraocular movements intact. Conjunctiva/sclera: Conjunctivae normal. Pupils: Pupils are equal, round, and reactive to light. Neck: Trachea: No tracheal deviation. Cardiovascular: Rate and Rhythm: Normal rate and regular rhythm. Heart sounds: Normal heart sounds. No murmur heard. No friction rub. No gallop. Pulmonary: Effort: Pulmonary effort is normal. Breath sounds: Normal breath sounds. No wheezing or rales. Abdominal: General: There is no distension. Palpations: Abdomen is soft. Tenderness: There is no abdominal tenderness. There is no right CVA tendernes s, left CVA tenderness or guarding. Musculoskeletal: General: Normal range of motion. Cervical back: Normal range of motion and neck supple. No rigidity or tendern ess. Right lower leg: No edema. Left lower leg: No edema. Skin: General: Skin is warm and dry. Neurological: General: No focal deficit present. Mental Status: He is alert and oriented to person, place, and time. Mental st atus is at baseline. Cranial Nerves: No cranial nerve deficit. Sensory: No sensory deficit. Motor: No weakness. Coordination: Coordination normal. Comments: Gait not assessed due to concern of fall risk Psychiatric: Mood and Affect: Mood normal. Behavior: Behavior normal. Thought Content: Thought content normal. Laboratory Results: Labs Reviewed CBC AND DIFF - Abnormal Result Value Ref Range Status White Blood Cells 7.5 4.5 - 11.0 K/UL Final RBC 3.71 (*) 4.4 - 5.5 M/UL Final Hemoglobin 12.5 (*) 13.5 - 16.5 GM/DL Final Hematocrit 37.4 (*) 40 - 50 % Final MCV 101.0 (*) 80 - 100 FL Final MCH 33.6 26 - 34 PG Final MCHC 33.3 32.0 - 36.0 G/DL Final RDW 14.4 11 - 15 % Final Platelet Count 116 (*) 150 - 400 K/UL Final MPV 9.2 7 - 11 FL Final Neutrophils 73 41 - 77 % Final Lymphocytes 12 (*) 24 - 44 % Final Monocytes 11 4 - 12 % Final Eosinophils 3 0 - 5 % Final Basophils 1 0 - 2 % Final Absolute Neutrophil Count 5.48 1.8 - 7.0 K/UL Final Absolute Lymph Count 0.89 (*) 1.0 - 4.8 K/UL Final Absolute Monocyte Count 0.85 (*) 0 - 0.80 K/UL Final Absolute Eosinophil Count 0.24 0 - 0.45 K/UL Final Absolute Basophil Count 0.06 0 - 0.20 K/UL Final MDW (Monocyte Distribution Width) 20.2 <20.7 Final COMPREHENSIVE METABOLIC PANEL - Abnormal Sodium 141 137 - 147 MMOL/L Final Potassium 3.9 3.5 - 5.1 MMOL/L Final Chloride 105 98 - 110 MMOL/L Final Glucose 95 70 - 100 MG/DL Final Blood Urea Nitrogen 27 (*) 7 - 25 MG/DL Final Creatinine 1.01 0.4 - 1.24 MG/DL Final Calcium 9.3 8.5 - 10.6 MG/DL Final Total Protein 7.1 6.0 - 8.0 G/DL Final Total Bilirubin 0.4 0.3 - 1.2 MG/DL Final Albumin 4.0 3.5 - 5.0 G/DL Final Alk Phosphatase 105 25 - 110 U/L Final AST (SGOT) 65 (*) 7 - 40 U/L Final CO2 26 21 - 30 MMOL/L Final ALT (SGPT) 63 (*) 7 - 56 U/L Final Anion Gap 10 3 - 12 Final eGFR >60 >60 mL/min Final URINALYSIS DIPSTICK REFLEX TO CULTURE - Abnormal Color,UA YELLOW Final Turbidity,UA CLEAR CLEAR-CLEAR Final Specific [place]-Urine 1.028 1.005 - 1.030 Final pH,UA 5.0 5.0 - 8.0 Final Protein,UA 2+ (*) NEG-NEG Final Glucose,UA NEG NEG-NEG Final Ketones,UA NEG NEG-NEG Final Bilirubin,UA NEG NEG-NEG Final Blood,UA 3+ (*) NEG-NEG Final Urobilinogen,UA NORMAL NORM-NORMAL Final Nitrite,UA NEG NEG-NEG Final Leukocytes,UA NEG NEG-NEG Final Urine Ascorbic Acid, UA NEG NEG-NEG Final PROTIME INR (PT) Protime 13.5 9.5 - 14.2 SEC Final INR 1.2 0.8 - 1.2 Final MAGNESIUM Magnesium 2.2 1.6 - 2.6 mg/dL Final URINALYSIS MICROSCOPIC REFLEX TO CULTURE WBCs,UA 0-2 0 - 2 /HPF Final RBCs,UA PACKED 0 - 3 /HPF Final Comment,UA Final Value: Criteria for reflex to culture are WBC>10, Positive Nitrite, and/or >=+1 leukocytes. If quantity is not sufficient, an addendum will follow. Squamous Epithelial Cells 0-2 0 - 5 Final TSH WITH FREE T4 REFLEX TSH 1.43 0.35 - 5.00 MCU/ML Final POC GLUCOSE Glucose, POC 98 70 - 100 MG/DL Final BASIC METABOLIC PANEL CBC AND DIFF POC GLUCOSE POC Glucose (Download): 98 Radiology Interpretation: CT HEAD WO CONTRAST Final Result 1. No acute intracranial hemorrhage. 2. Redemonstration of a moderate sized subacute right GENERATOR ASSEMBLER territory infarct wit hout evidence of significant hemorrhagic conversion. Associated localized right cerebral mass effect with stable asymmetric enlargement of the right lateral singh tricular temporal horn. 3. Unchanged additional likely recent tiny right posterolateral cerebellar and small medial right frontal-cingulate infarcts. Several additional small recent b ilateral cerebral and cerebellar infarcts are better seen on recent MRI from 2 d ays earlier. 4. Stable size of the right cerebral convexity mixed density subdural hematoma and associated intracranial mass effect with up to to 0.6 cm of leftward midline shift. 5. Stable mild patchy cerebral white matter hypodensities, consistent with nons pecific white matter disease, with tiny chronic mild cerebellar infarcts. 6. 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 Dr. Luong discussed these findings with Dr. Rob by telephone at 7:48 PM on 10/27/2022. By my electronic signature, I attest that I have personally reviewed the images for this examination and formulated the interpretations and opinions expressed i n this report Finalized by Eric Nava M.D. on 10/27/2022 8:05 PM. Dictated by Fernando Luong M.D. on 10/27/2022 7:[address] CHEST W CONTRAST Final Result Abnormal 1. 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 2. Mild cardiomegaly with interstitial thickening and groundglass opacity throu ghout both lungs, most likely representing CHF. 3. Moderate mediastinal and bilateral hilar lymphadenopathy suspicious for meta static disease. 4. Diffuse nodularity throughout both lungs and pleura concerning for metastati c disease. This could also be infectious. 5. Moderate emphysema and scattered areas of scarring. 6. Trace pleural effusions. 7. Small hypodense right renal lesion is indeterminate and may be a cyst. Ultra sound characterization is recommended. 8. Marked coronary artery calcification. #FOLLOW Finalized by Johnny Gillespie M.D. on 10/26/2022 8:35 AM. Dictated by Narda Tucker on 10/26/2022 8:23 AM. MRI HEAD WO CONTRAST Final Result 1. Redemonstration of multiple scattered recent subacute appearing supratentori al and infratentorial infarcts (presumed embolic etiology) with a dominant small to moderate-sized right GENERATOR ASSEMBLER territory infarct. Unchanged associated right occip itotemporal mass effect. No evidence of hemorrhagic conversion of infarct. 2. Stable mixed signal intensity right cerebral convexity subdural hematoma otilia suring up to 1.2 cm in depth. 3. Persistent associated intracranial mass effect with mild leftward midline sh ift measuring up to 0.5 cm. 4. Mild underlying cerebral volume loss and patchy cerebral white matter FLAIR hyperintensities, likely due to chronic microvascular ischemic changes, with tin y chronic bilateral cerebellar infarcts and a small chronic area of left postero lateral temporal encephalomalacia gliosis. 5. Small geographic T1 hypointense marrow lesion involving the lower clivus, wh ich is indeterminate though in the setting of pulmonary findings on same-day CTA head-neck could reflect an osseous metastasis. Finalized by Hunter Martinez DO on 10/25/2022 1:00 PM. Dictated by Hunter Martinez DO on 10/25/2022 12:46 PM. 2D + DOPPLER ECHO Final Result CTA HEAD WO/W CONT Final Result CTA head: 1. Redemonstration of a small-moderately sized subacute right GENERATOR ASSEMBLER territory inf arct without evidence of hemorrhagic conversion. Associated localized right cere bral mass effect with stable asymmetric enlargement of the right lateral ventric ular temporal horn. 2. Additional likely recent tiny right posterolateral cerebellar and small medi al right frontal-cingulate infarcts. 3. Stable size of the right cerebral convexity mixed density subdural hematoma and associated intracranial mass effect with up to 0.5 cm of leftward midline sh ift. 4. Stable mild patchy cerebral white matter hypodensities, consistent with nons pecific white matter disease, with tiny chronic left cerebellar infarcts. 5. Intracranial atherosclerotic vascular disease resulting in multifocal lumina l stenoses, most pronounced and of severe degree at the right supraclinoid ICA a nd distal left intracranial vertebral artery. Additional less pronounced stenose s are described above. No evidence of large vessel occlusion. CTA neck: 1. Atherosclerotic vascular disease resulting in a severe, likely near occlusiv e luminal stenosis of the left cervical vertebral origin. Additional scattered, mild and moderate atherosclerotic luminal stenoses involving the great vessels a re described in detail above. No hemodynamically significant ICA stenosis by LISA CET criteria. 2. Emphysema with an irregular, masslike right upper lobe opacity and patchy un derlying hvfhkstlmpe-khho-cb-bud opacities throughout the visualized lungs. Ther e is also relatively diffuse pulmonary septal thickening throughout the visualiz ed lungs. Infectious-inflammatory pneumonia and potentially a component of under lying pulmonary edema could contribute to the more diffuse pulmonary findings, t rebecca, aforementioned dominant masslike right upper lobe opacity is suspect for neoplasm. CT chest is recommended to more completely evaluate pulmonary findings . 3. Multistation mediastinal and hilar lymphadenopathy. Discussed with Isamar Newell APRN by myself via telephone at 9:49 AM on 2021 Finalized by Hunter Martinez DO on 10/25/2022 9:49 AM. Dictated by Hunter Martinez DO on 10/25/2022 9:05 AM. CTA NECK WO/W CONT Final Result CTA head: 1. Redemonstration of a small-moderately sized subacute right GENERATOR ASSEMBLER territory inf arct without evidence of hemorrhagic conversion. Associated localized right cere bral mass effect with stable asymmetric enlargement of the right lateral ventric ular temporal horn. 2. Additional likely recent tiny right posterolateral cerebellar and small medi al right frontal-cingulate infarcts. 3. Stable size of the right cerebral convexity mixed density subdural hematoma and associated intracranial mass effect with up to 0.5 cm of leftward midline sh ift. 4. Stable mild patchy cerebral white matter hypodensities, consistent with nons pecific white matter disease, with tiny chronic left cerebellar infarcts. 5. Intracranial atherosclerotic vascular disease resulting in multifocal lumina l stenoses, most pronounced and of severe degree at the right supraclinoid ICA a nd distal left intracranial vertebral artery. Additional less pronounced stenose s are described above. No evidence of large vessel occlusion. CTA neck: 1. Atherosclerotic vascular disease resulting in a severe, likely near occlusiv e luminal stenosis of the left cervical vertebral origin. Additional scattered, mild and moderate atherosclerotic luminal stenoses involving the great vessels a re described in detail above. No hemodynamically significant ICA stenosis by LISA CET criteria. 2. Emphysema with an irregular, masslike right upper lobe opacity and patchy un derlying xgguzbsqctr-sfag-at-bud opacities throughout the visualized lungs. Ther e is also relatively diffuse pulmonary septal thickening throughout the visualiz ed lungs. Infectious-inflammatory pneumonia and potentially a component of under lying pulmonary edema could contribute to the more diffuse pulmonary findings, t rebecca, aforementioned dominant masslike right upper lobe opacity is suspect for neoplasm. CT chest is recommended to more completely evaluate pulmonary findings . 3. Multistation mediastinal and hilar lymphadenopathy. Discussed with Isamar Newell APRN by myself via telephone at 9:49 AM on 2021 Finalized by Hunter Martinez DO on 10/25/2022 9:49 AM. Dictated by Hunter Martinez DO on 10/25/2022 9:[address] HEAD WO CONTRAST Final Result Addendum (preliminary) 1 of Finalized by Gee Page MD, PhD on 10/24/2022 11:16 PM. Dictated by Cayden Cardona MD on 10/24/2022 11:02 PM.Addendum: Dr. Cardona discussed these findings with Dr. Rocha by telephone at 11:18 PM on 10/24/2022. Approved by Cayden Cardona MD on 10/24/2022 11:18 PM By my electronic signature, I attest that I have personally reviewed the images for this examination and formulated the interpretations and opinions expressed in this report Finalized by Gee Page MD, PhD on 10/24/2022 11:18 PM. Dictated by Cayden Cardona MD on 10/24/2022 11:17 PM. Final 1. Development of a moderate-sized hypodensity within the posterior medial occi pitotemporal lobe likely representing a evolving late subacute right GENERATOR [employer]ER infarct . 2. New hypodensities within the mixed density subdural hematoma along the right cerebral convexity, likely represent interval bleeding. The subdural hematoma is stable in size producing stable mass effect resulting in 6 mm of leftward midl ine shift. No descending herniation or hydrocephalus. 3. Stable mild patchy supratentorial white matter hypodensities, likely sequela e of chronic microvascular ischemic change. 4. Tiny low-density is now present along the lateral right cerebellum likely in terval small lacunar type infarct. By my electronic signature, I attest that I have personally reviewed the images for this examination and formulated the interpretations and opinions expressed i n this report CHEST SINGLE VIEW Final Result Patchy groundglass opacity scattered throughout both lungs concerning for diffus e infectious etiology versus pulmonary edema. Finalized by Gee Page MD, PhD on 10/24/2022 10:18 PM. Dictated by Yaron Page MD, PhD on 10/24/2022 10:[address] HEAD EXTERNAL IMAGING Final Result IR CEREBRAL ANEURYSM EMBOLIZATION (Results Pending) NM PET SCAN TORSO (SKULL-THIGHS) (Results Pending) TRANSESOPHAGEAL ECHO (Results Pending) EKG: ECG Results ECG 12-LEAD (Final result) Collection Time Result Time VT RATE P-R Interval QRS DURATION Q-T Interval QTC Calc Bazett 10/24/22 22:25:58 10/27/22 19:25:58 67 182 104 434 458 Collection Time Result Time P Marshall R Marshall T Marshall 10/24/22 22:25:58 10/27/22 19:25:58 72 -21 78 Final result Impression: Normal sinus rhythm Minimal voltage criteria for LVH, may be normal variant ( [place] product ) Anterior infarct , age undetermined Abnormal ECG When compared with ECG of 12-OCT-2022 18:47, Anterior infarct is now present ST no longer depressed in Lateral leads Confirmed by Ricardo Sparrow ([id number]) on 10/27/2022 7:25:55 PM Medical Decision Making: Scot Bell is a 82 y.o. male who presents with chief complaint as listed above . Based on the history and presentation, the following differential was consider ed: Acute on chronic subdural hematoma, stroke, electrolyte derangement, dehydra tion. ED Course 82 y.o. male presented to the ED for lower extremity weakness. - Patient was evaluated by resident and attending physicians. - Vitals revealed initial BP 145/76. Afebrile. - Initial concern was for acute on chronic subdural hematoma, stroke, electrolyt e derangement, dehydration. -Neurology contacted as today's documentation stated Dr. March had received i rose and requested ED evaluation, however no imaging or report are readily deborah ilable for ED review. Neurosurgery reviewed images available to them and found a report concerning for acute on chronic subdural hematoma and new ischemic flores ges. Agreed to a neurosurgery consult, recommended new head CT without contrast and recommended neurology evaluation for stroke work-up. - Labs and imaging obtained and reviewed, as noted above, pertinent findings inc lude -mild anemia. Mild transaminitis. UA demonstrated 2+ protein and 3+ blood with packed RBCs, suspicious for catheterization however UA retrieval method un known at this time, otherwise noninfectious. -CT head without contrast demonstrated development of moderate exhibited tempora l stroke likely representing evolving late subacute right [employer]ER infarct and concer ns of internal bleeding in subdural hematoma and right cerebral convexity with s table mass-effect and stable leftward midline shift. -Neurology did not recommend admission to their team at this time and recommend normal inpatient stroke work-up. Did not have recommendations when prompted for BP parameters. -Neurosurgery agreed to admit to their team. Loaded with 1 g of Keppra for seiz ure prophylaxis. 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 Additional data reviewed: History was obtained from an independent historian: Family Prior non-ED notes reviewed: Outside ED record Independent interpretation of diagnostic tests was performed by me: No Patient presentation/management was discussed with the following qualified [facility] care associate and/or other relevant professionals: None Risk evaluation: Diagnosis or treatment of patient condition impacted by social determinant o f health: None Tests Considered but not performed due to clinical scoring (if not mentioned in ED course, aside from what is implied by clinical scores listed): n/a Rationale regarding whether admission or escalation of care considered if no t performed (if not mentioned in ED course, aside from what is implied by clinic al scores listed): n/a ED Scoring: Total Stroke Scale Score: 4 Total Score [facility] Reviewed: nursing note and vitals Interpretation: labs, ECG, x-ray and CT scan Consults: Admitting Provider Facility Administered Meds: Medications atorvastatin (LIPITOR) tablet 80 mg (has no administration in time range) metoprolol tartrate (LOPRESSOR) tablet 50 mg (has no administration in time rang e) docusate (COLACE) capsule 100 mg (has no administration in time range) senna/docusate (SENOKOT-S) tablet 1 tablet (has no administration in time range) milk of magnesia (CONC) oral suspension 10 mL (has no administration in time ran ge) hydrALAZINE (APRESOLINE) injection 10 mg (has no administration in time range) labetaloL (NORMODYNE) injection 10 mg (has no administration in time range) ondansetron (ZOFRAN) injection 4 mg (has no administration in time range) levETIRAcetam (KEPPRA) IV push 1,000 mg (1,000 mg Intravenous Given 10/25/22 005 2) Clinical Impression: Clinical Impression 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 Medications: Current Discharge Medication List Procedure Notes: Procedures Siomara Rocha, DO Siomara Rocha, Emergency Medicine, PGY-3 Pager #[phone], also available on Voalte [phone] Attestation / Supervision Note concerning Scot Bell: I personally performed t he torres portions of the E/M visit, discussed case with resident and concur with r esident documentation of history, physical exam, assessment, and treatment plan unless otherwise noted. Hunter Hernandez MD FACEP Attestation / Supervision Note concerning Scot Bell: I personally performed t he torres portions of the E/M visit, discussed case with resident and concur with r esident documentation of history, physical exam, assessment, and treatment plan unless otherwise noted. Hunter Hernandez MD FACEP RIBUTOR OPERATOR * Lexie Ch RN - 10/25/2022 1:41 AM CST Report from ARMANDO Jha RIBUTOR OPERATOR * Yudelka Cheng RN - 10/24/2022 8:08 PM CST Patient came into the ED today due to extremity weakness and change in CT result s. Patients daughter reports 'he got a CT done last week and today he started to have a lot of weakness, confusion and trouble with his speech so they told us to get another CT done. While we were there they told us he had some changes on his scan and a possible stroke that happened so they told us to come here'. Patient is A/Ox4, even unlabored breathing. Patient states 'I am just really tired'. Patient denies chest pain, SOB. Patient reports LAW that is constant and rates hi s pain 5 out of 10. Bed is in lowest locked position, call light and belongings are within reach. ;hx Medical History: Diagnosis Date Arthritis Bleeding disorder (HCC) Hypertension PAD (peripheral artery disease) (HCC) Tremor \\ RIBUTOR OPERATOR documented in this encounter Miscellaneous Notes * Care Plan - Kathy Reid RN - 11/05/2022 11:47 AM CST Problem: Discharge Planning Goal: Participation in plan of care Outcome: Goal Achieved Goal: Knowledge regarding plan of care Outcome: Goal Achieved Goal: Prepared for discharge Outcome: Goal Achieved Problem: High Fall Risk Goal: High Fall Risk Outcome: Goal Achieved Problem: Tobacco Use Goal: Knowledge of tobacco-use cessation methods Outcome: Goal Achieved Problem: Pain Goal: Management of pain 11/05/2022 1147 by Kathy Reid RN Outcome: Goal Achieved 11/05/2022 1147 by Kathy Reid RN Outcome: Goal Ongoing Goal: Knowledge of pain management 11/05/2022 1147 by Kathy Reid RN Outcome: Goal Achieved 11/05/2022 1147 by Kathy Reid RN Outcome: Goal Ongoing Goal: Progress Toward Pain Management Goals 11/05/2022 1147 by Kathy Reid RN Outcome: Goal Achieved 11/05/2022 1147 by Kathy Reid RN Outcome: Goal Ongoing Problem: VTE, Risk of Goal: Absence of venous thrombosis 11/05/2022 1147 by Kathy Reid RN Outcome: Goal Achieved 11/05/2022 1147 by Kathy Reid RN Outcome: Goal Ongoing Goal: Knowledge of warfarin regimen 11/05/2022 1147 by Kathy Reid RN Outcome: Goal Achieved 11/05/2022 1147 by Kathy Reid RN Outcome: Goal Ongoing Problem: Mobility/Activity Intolerance Goal: Maximize functional ADL's and mobility outcomes 11/05/2022 1147 by Kahty Reid RN Outcome: Goal Achieved 11/05/2022 1147 by Kathy Reid RN Outcome: Goal Ongoing Problem: Self-Care Deficit Goal: Maximize ADL functioning 11/05/2022 1147 by Kathy Reid RN Outcome: Goal Achieved 11/05/2022 1147 by Kathy Reid RN Outcome: Goal Ongoing Problem: Nutrition Deficit Goal: Adequate nutritional intake 11/05/2022 1147 by Kathy Reid RN Outcome: Goal Achieved 11/05/2022 1147 by Kathy Reid RN Outcome: Goal Ongoing Problem: Neurological Status, Impaired/Altered Goal: Progress toward maximizing functional outcomes 11/05/2022 1147 by Kathy Reid RN Outcome: Goal Achieved 11/05/2022 1147 by Kathy Reid RN Outcome: Goal Ongoing Goal: Cognitive status restored to baseline 11/05/2022 1147 by Kathy Reid RN Outcome: Goal Achieved 11/05/2022 1147 by Kathy Reid RN Outcome: Goal Ongoing Problem: Communication, Impaired Goal: Maximize functional communication 11/05/2022 1147 by Kathy Reid RN Outcome: Goal Achieved 11/05/2022 1147 by Kathy Reid RN Outcome: Goal Ongoing RIBUTOR OPERATOR * Care Plan - Chris Roberson RN - 11/04/2022 10:30 AM CST Problem: Discharge Planning Goal: Participation in plan of care Outcome: Goal Ongoing Goal: Knowledge regarding plan of care Outcome: Goal Ongoing Goal: Prepared for discharge Outcome: Goal Ongoing Problem: High Fall Risk Goal: High Fall Risk Outcome: Goal Ongoing Problem: Tobacco Use Goal: Knowledge of tobacco-use cessation methods Outcome: Goal Ongoing Problem: Pain Goal: Management of pain Outcome: Goal Ongoing Goal: Knowledge of pain management Outcome: Goal Ongoing Goal: Progress Toward Pain Management Goals Outcome: Goal Ongoing Problem: VTE, Risk of Goal: Absence of venous thrombosis Outcome: Goal Ongoing Goal: Knowledge of warfarin regimen Outcome: Goal Ongoing Problem: Mobility/Activity Intolerance Goal: Maximize functional ADL's and mobility outcomes Outcome: Goal Ongoing Problem: Self-Care Deficit Goal: Maximize ADL functioning Outcome: Goal Ongoing Problem: Nutrition Deficit Goal: Adequate nutritional intake Outcome: Goal Ongoing Problem: Neurological Status, Impaired/Altered Goal: Progress toward maximizing functional outcomes Outcome: Goal Ongoing Goal: Cognitive status restored to baseline Outcome: Goal Ongoing Problem: Communication, Impaired Goal: Maximize functional communication Outcome: Goal Ongoing RIBUTOR OPERATOR * Care Plan - Chris Roberson RN - 11/03/2022 4:24 PM CST Problem: Discharge Planning Goal: Participation in plan of care Outcome: Goal Ongoing Goal: Knowledge regarding plan of care Outcome: Goal Ongoing Goal: Prepared for discharge Outcome: Goal Ongoing Problem: High Fall Risk Goal: High Fall Risk Outcome: Goal Ongoing Problem: Tobacco Use Goal: Knowledge of tobacco-use cessation methods Outcome: Goal Ongoing Problem: Pain Goal: Management of pain Outcome: Goal Ongoing Goal: Knowledge of pain management Outcome: Goal Ongoing Goal: Progress Toward Pain Management Goals Outcome: Goal Ongoing Problem: VTE, Risk of Goal: Absence of venous thrombosis Outcome: Goal Ongoing Goal: Knowledge of warfarin regimen Outcome: Goal Ongoing Problem: Mobility/Activity Intolerance Goal: Maximize functional ADL's and mobility outcomes Outcome: Goal Ongoing Problem: Self-Care Deficit Goal: Maximize ADL functioning Outcome: Goal Ongoing Problem: Nutrition Deficit Goal: Adequate nutritional intake Outcome: Goal Ongoing Problem: Neurological Status, Impaired/Altered Goal: Progress toward maximizing functional outcomes Outcome: Goal Ongoing Goal: Cognitive status restored to baseline Outcome: Goal Ongoing Problem: Communication, Impaired Goal: Maximize functional communication Outcome: Goal Ongoing RIBUTOR OPERATOR * Care Plan - Chris Roberson RN - 11/02/2022 4:14 PM CST Problem: Discharge Planning Goal: Participation in plan of care Outcome: Goal Ongoing Goal: Knowledge regarding plan of care Outcome: Goal Ongoing Goal: Prepared for discharge Outcome: Goal Ongoing Problem: High Fall Risk Goal: High Fall Risk Outcome: Goal Ongoing Problem: Tobacco Use Goal: Knowledge of tobacco-use cessation methods Outcome: Goal Ongoing Problem: Pain Goal: Management of pain Outcome: Goal Ongoing Goal: Knowledge of pain management Outcome: Goal Ongoing Goal: Progress Toward Pain Management Goals Outcome: Goal Ongoing Problem: VTE, Risk of Goal: Absence of venous thrombosis Outcome: Goal Ongoing Goal: Knowledge of warfarin regimen Outcome: Goal Ongoing Problem: Mobility/Activity Intolerance Goal: Maximize functional ADL's and mobility outcomes Outcome: Goal Ongoing Problem: Self-Care Deficit Goal: Maximize ADL functioning Outcome: Goal Ongoing Problem: Nutrition Deficit Goal: Adequate nutritional intake Outcome: Goal Ongoing Problem: Neurological Status, Impaired/Altered Goal: Progress toward maximizing functional outcomes Outcome: Goal Ongoing Goal: Cognitive status restored to baseline Outcome: Goal Ongoing Problem: Communication, Impaired Goal: Maximize functional communication Outcome: Goal Ongoing RIBUTOR OPERATOR * Care Plan - Chris Roberson RN - 10/31/2022 6:26 PM CST Problem: Discharge Planning Goal: Participation in plan of care Outcome: Goal Ongoing Goal: Knowledge regarding plan of care Outcome: Goal Ongoing Goal: Prepared for discharge Outcome: Goal Ongoing Problem: High Fall Risk Goal: High Fall Risk Outcome: Goal Ongoing Problem: Tobacco Use Goal: Knowledge of tobacco-use cessation methods Outcome: Goal Ongoing Problem: Pain Goal: Management of pain Outcome: Goal Ongoing Goal: Knowledge of pain management Outcome: Goal Ongoing Goal: Progress Toward Pain Management Goals Outcome: Goal Ongoing Problem: VTE, Risk of Goal: Absence of venous thrombosis Outcome: Goal Ongoing Goal: Knowledge of warfarin regimen Outcome: Goal Ongoing Problem: Mobility/Activity Intolerance Goal: Maximize functional ADL's and mobility outcomes Outcome: Goal Ongoing Problem: Self-Care Deficit Goal: Maximize ADL functioning Outcome: Goal Ongoing Problem: Nutrition Deficit Goal: Adequate nutritional intake Outcome: Goal Ongoing Problem: Neurological Status, Impaired/Altered Goal: Progress toward maximizing functional outcomes Outcome: Goal Ongoing Goal: Cognitive status restored to baseline Outcome: Goal Ongoing Problem: Communication, Impaired Goal: Maximize functional communication Outcome: Goal Ongoing RIBUTOR OPERATOR * Care Plan - Dottie Montes RD - 10/31/2022 3:45 PM CST Problem: Nutrition Deficit Goal: Adequate nutritional intake Outcome: Goal Ongoing Flowsheets (Taken 10/31/2022 1545) Adequate nutritional intake: Promote oral intake Assess nutritional status Clinical Nutrition is following for increased metabolic demands. JASMIN met with pat osiris and family at bedside this afternoon. NPO for bronchoscopy this afternoon. He has been NPO for procedures intermittently during admission. Of note, prior t o admission, patient had good appetite and ate consistent meals. For example; bu rritos (handheld foods are easier with tremors), dry cereal as a snack, Equate n utrition shakes, casseroles. He has good family support to help prepare items. D iscussed ways to increase calorie intake to help meet demands; choosing "Plus" v arieties of nutrition supplements over the original versions, adding 1 tbsp of h eavy whipping cream to nutrition shakes, adding guacamole to burritos, etc. Richelle ent was open to this. Body habitus is thin with +temporal/intercostal wasting. Estimated Calorie Needs: 6703-7849 (27-30 kcal/kg current weight) Estimated Protein Needs: 70-85 (1.2-1.4 g/kg current weight) Recommendation: Once medically appropriate; advance diet as tolerated to Regular Encourage intake of 3 meals daily; including a protein with each meal Boost Plus, PRN To optimize nutrient intake to meet metabolic demands; encourage adding high milagro orie ingredients meals/snacks: guacamole, half and half, sour cream, butter, oil , peanut butter, etc. Dottie Montes MS, RD, LD, [facility] Office: [phone] [facility] RIBUTOR OPERATOR * Care Plan - Chris Roberson RN - 10/30/2022 5:25 PM CST Problem: Discharge Planning Goal: Participation in plan of care Outcome: Goal Ongoing Goal: Knowledge regarding plan of care Outcome: Goal Ongoing Goal: Prepared for discharge Outcome: Goal Ongoing Problem: High Fall Risk Goal: High Fall Risk Outcome: Goal Ongoing Problem: Tobacco Use Goal: Knowledge of tobacco-use cessation methods Outcome: Goal Ongoing Problem: Pain Goal: Management of pain Outcome: Goal Ongoing Goal: Knowledge of pain management Outcome: Goal Ongoing Goal: Progress Toward Pain Management Goals Outcome: Goal Ongoing Problem: VTE, Risk of Goal: Absence of venous thrombosis Outcome: Goal Ongoing Goal: Knowledge of warfarin regimen Outcome: Goal Ongoing Problem: Mobility/Activity Intolerance Goal: Maximize functional ADL's and mobility outcomes Outcome: Goal Ongoing Problem: Self-Care Deficit Goal: Maximize ADL functioning Outcome: Goal Ongoing Problem: Nutrition Deficit Goal: Adequate nutritional intake Outcome: Goal Ongoing Problem: Neurological Status, Impaired/Altered Goal: Progress toward maximizing functional outcomes Outcome: Goal Ongoing Goal: Cognitive status restored to baseline Outcome: Goal Ongoing Problem: Communication, Impaired Goal: Maximize functional communication Outcome: Goal Ongoing RIBUTOR OPERATOR * Acute Stroke Response - Shanelle Dudley RN - 10/27/2022 7:19 PM DISTRIBUTOR OPERATOR RN Stroke Activation Summary Date of Service: 10/27/2022 Scot Bell is a 82 y.o. male. : [id number] Allergies: Patient has no known allergies. Patient Arrival: (Pt already inpatient on ca7) ASRT Arrival: 1918 Location of Response : [facility] 7101 Page Received: 1915 Clinical Presentation: Visual changes, Decreased LOC Total Stroke Scale Score: 9 Signs & Symptoms: Onset of Symptoms Onset of Symptoms - Date: 10/27/22 Onset of Symptoms - Time: 1899 Dysphagia screen: Patient intubated?: No Did Patient Pass The Swallow Screen Part I?: Yes Did Patient Pass The Swallow Screen Part II: Yes Did Patient Pass The Swallow Screen: Yes Plan: Summary: Patient not a candidate for acute stroke intervention at this time. Cait harris see Acute Stroke Response Provider Note for further information. Radiology/Interventional Delay Decision to IR: No Delays: No N/A IV Thrombolytic in the Scanner: No Plan: Neurosurgery notified and will review imaging. RN handoff: ARMANDO Schmidt RN RIBUTOR OPERATOR * Care Plan - Chris Roberson RN - 10/26/2022 4:20 PM CST Problem: Discharge Planning Goal: Participation in plan of care Outcome: Goal Ongoing Goal: Knowledge regarding plan of care Outcome: Goal Ongoing Goal: Prepared for discharge Outcome: Goal Ongoing Problem: High Fall Risk Goal: High Fall Risk Outcome: Goal Ongoing Problem: Tobacco Use Goal: Knowledge of tobacco-use cessation methods Outcome: Goal Ongoing Problem: Pain Goal: Management of pain Outcome: Goal Ongoing Goal: Knowledge of pain management Outcome: Goal Ongoing Goal: Progress Toward Pain Management Goals Outcome: Goal Ongoing Problem: VTE, Risk of Goal: Absence of venous thrombosis Outcome: Goal Ongoing Goal: Knowledge of warfarin regimen Outcome: Goal Ongoing Problem: Mobility/Activity Intolerance Goal: Maximize functional ADL's and mobility outcomes Outcome: Goal Ongoing Problem: Self-Care Deficit Goal: Maximize ADL functioning Outcome: Goal Ongoing RIBUTOR OPERATOR documented in this encounter Plan of Treatment Date/Time Name Type Priority Associated Diag noses 10/31/2022 4:15 PM DISTRIBUTOR OPERATOR CYTOLOGY FNA LYMPH NODE Pathology Routine Order Schedule Name Type Priority Associated Diag noses ONE TIME for 1 Occurrences starting 10/11 until 10/31/2022 CYTOLOGY FNA LYMPH NODE Pathology Routine documented as of this encounter Goals Goal Patient Associated Recent Progress Patient-Stat Aut hor Goal Type Problems ed? Recover from illness Hospital On track (10/25/2022 Yes Pina Flores, 4:08 PM DISTRIBUTOR OPERATOR) RN Note: "To get better and go home" documented as of this encounter Procedures Comments Procedure Name Priority Date/Time Associated Diag nosis CBC Routine 11/05/2022 4:04 AM DISTRIBUTOR OPERATOR COMPREHENSIVE METABOLIC Routine 11/05/2022 PANEL 4:04 AM DISTRIBUTOR OPERATOR CONSULT VASCULAR ACCESS Routine 11/04/2022 TEAM 1:05 AM DISTRIBUTOR OPERATOR HC CBC W/ AUTOMATED DIFF Routine 11/03/2022 4:13 AM DISTRIBUTOR OPERATOR HC COMPREHENSIVE Routine 11/03/2022 METABOLIC PANEL 4:13 AM DISTRIBUTOR OPERATOR CONSULT VASCULAR ACCESS Routine 11/02/2022 TEAM 5:48 PM DISTRIBUTOR OPERATOR HC CBC W/ AUTOMATED DIFF Routine 11/02/2022 4:04 AM DISTRIBUTOR OPERATOR HC COMPREHENSIVE Routine 11/02/2022 METABOLIC PANEL 4:04 AM DISTRIBUTOR OPERATOR HC CBC W/ AUTOMATED DIFF Routine 11/01/2022 4:02 AM DISTRIBUTOR OPERATOR HC COMPREHENSIVE Routine 11/01/2022 METABOLIC PANEL 4:02 AM DISTRIBUTOR OPERATOR ROBOT ASSISTED 10/31/2022 Lung mass BRONCHOSCOPY WITH 3:29 PM DISTRIBUTOR OPERATOR IMAGE-GUIDED NAVIGATION- FLEXIBLE CT CHEST WO CONTRAST STAT 10/31/2022 2:41 PM DISTRIBUTOR OPERATOR BRONCHOSCOPY 10/31/2022 2:34 PM DISTRIBUTOR OPERATOR HC CBC W/ AUTOMATED DIFF Routine 10/31/2022 4:26 AM DISTRIBUTOR OPERATOR HC COMPREHENSIVE Routine 10/31/2022 METABOLIC PANEL 4:26 AM DISTRIBUTOR OPERATOR NM PET SCAN TORSO BLAYNE 10/30/2022 (SKULL-THIGHS) 2:16 PM DISTRIBUTOR OPERATOR HC CBC W/ AUTOMATED DIFF Routine 10/30/2022 4:21 AM DISTRIBUTOR OPERATOR HC BASIC METABOLIC PANEL Routine 10/30/2022 4:21 AM DISTRIBUTOR OPERATOR ANSELMO W/O CONTRAST Routine 10/29/2022 3:47 PM DISTRIBUTOR OPERATOR HC CBC W/ AUTOMATED DIFF Routine 10/29/2022 3:57 AM DISTRIBUTOR OPERATOR HC BASIC METABOLIC PANEL Routine 10/29/2022 3:57 AM DISTRIBUTOR OPERATOR IR CEREBRAL ANEURYSM Routine 10/28/2022 EMBOLIZATION 9:46 AM DISTRIBUTOR OPERATOR TELEMETRY STRIPS-SCAN 10/28/2022 12:00 AM DISTRIBUTOR OPERATOR TELEMETRY STRIPS-SCAN 10/28/2022 12:00 AM DISTRIBUTOR OPERATOR TELEMETRY STRIPS-SCAN 10/28/2022 12:00 AM DISTRIBUTOR OPERATOR TELEMETRY STRIPS-SCAN 10/28/2022 12:00 AM DISTRIBUTOR OPERATOR TELEMETRY STRIPS-SCAN 10/28/2022 12:00 AM DISTRIBUTOR OPERATOR TELEMETRY STRIPS-SCAN 10/28/2022 12:00 AM DISTRIBUTOR OPERATOR TELEMETRY STRIPS-SCAN 10/28/2022 12:00 AM DISTRIBUTOR OPERATOR TELEMETRY STRIPS-SCAN 10/28/2022 12:00 AM DISTRIBUTOR OPERATOR TELEMETRY STRIPS-SCAN 10/28/2022 12:00 AM DISTRIBUTOR OPERATOR TELEMETRY STRIPS-SCAN 10/28/2022 12:00 AM DISTRIBUTOR OPERATOR TELEMETRY STRIPS-SCAN 10/28/2022 12:00 AM DISTRIBUTOR OPERATOR TELEMETRY STRIPS-SCAN 10/28/2022 12:00 AM DISTRIBUTOR OPERATOR TELEMETRY STRIPS-SCAN 10/28/2022 12:00 AM DISTRIBUTOR OPERATOR TELEMETRY STRIPS-SCAN 10/28/2022 12:00 AM DISTRIBUTOR OPERATOR TELEMETRY STRIPS-SCAN 10/28/2022 12:00 AM DISTRIBUTOR OPERATOR TELEMETRY STRIPS-SCAN 10/28/2022 12:00 AM DISTRIBUTOR OPERATOR TELEMETRY STRIPS-SCAN 10/28/2022 12:00 AM DISTRIBUTOR OPERATOR TELEMETRY STRIPS-SCAN 10/28/2022 12:00 AM DISTRIBUTOR OPERATOR TELEMETRY STRIPS-SCAN 10/28/2022 12:00 AM DISTRIBUTOR OPERATOR TELEMETRY STRIPS-SCAN 10/28/2022 12:00 AM DISTRIBUTOR OPERATOR TELEMETRY STRIPS-SCAN 10/28/2022 12:00 AM DISTRIBUTOR OPERATOR TELEMETRY STRIPS-SCAN 10/28/2022 12:00 AM DISTRIBUTOR OPERATOR TELEMETRY STRIPS-SCAN 10/28/2022 12:00 AM DISTRIBUTOR OPERATOR TELEMETRY STRIPS-SCAN 10/28/2022 12:00 AM DISTRIBUTOR OPERATOR EEG DEPARTMENT ORDER STAT 10/27/2022 9:21 PM DISTRIBUTOR OPERATOR CBC 10/27/2022 8:55 PM DISTRIBUTOR OPERATOR BASIC METABOLIC PANEL 10/27/2022 8:55 PM DISTRIBUTOR OPERATOR CONSULT VASCULAR ACCESS Routine 10/27/2022 TEAM 8:22 PM DISTRIBUTOR OPERATOR HC CBC,AUTOMATED 91 STAT 10/27/2022 7:[address] HEAD WO CONTRAST STAT 10/27/2022 7:46 PM DISTRIBUTOR OPERATOR HC CBC W/ AUTOMATED DIFF Routine 10/27/2022 4:16 AM DISTRIBUTOR OPERATOR HC BASIC METABOLIC PANEL Routine 10/27/2022 4:16 AM DISTRIBUTOR OPERATOR HC IRON BINDING CAPACITY Routine 10/26/2022 + %SAT 9:59 AM DISTRIBUTOR OPERATOR UT BLOOD SMEAR PERIPHERAL Routine 10/26/2022 INTERP PHYS W/WRIT REPORT 9:59 AM DISTRIBUTOR OPERATOR HC CBC W/ AUTOMATED DIFF Routine 10/26/2022 9:59 AM DISTRIBUTOR OPERATOR HC FOLATE, SERUM Routine 10/26/2022 9:59 AM DISTRIBUTOR OPERATOR HC VITAMIN B12 Routine 10/26/2022 9:59 AM DISTRIBUTOR OPERATOR HC BASIC METABOLIC PANEL Routine 10/26/2022 9:59 AM DISTRIBUTOR OPERATOR EEG DEPARTMENT ORDER Routine 10/26/2022 8:[address] CHEST W CONTRAST Routine 10/26/2022 4:20 AM DISTRIBUTOR OPERATOR MRI HEAD WO CONTRAST Routine 10/25/2022 12:30 PM DISTRIBUTOR OPERATOR 2D + DOPPLER ECHO W/ Routine 10/25/2022 CONTRAST 12:04 PM DISTRIBUTOR OPERATOR CTA NECK WO/W CONT Routine 10/25/2022 8:45 AM DISTRIBUTOR OPERATOR CTA HEAD WO/W CONT Routine 10/25/2022 8:45 AM DISTRIBUTOR OPERATOR HC HEMOGLOBIN A1C Routine 10/25/2022 7:12 AM DISTRIBUTOR OPERATOR HC Routine 10/25/2022 LIPID-5:CHOL/TRG/HDL/LDL+ 7:12 AM DISTRIBUTOR OPERATOR VLDL CT HEAD WO CONTRAST STAT 10/24/2022 10:57 PM DISTRIBUTOR OPERATOR ECG 12-LEAD STAT 10/24/2022 10:25 PM DISTRIBUTOR OPERATOR CHEST SINGLE VIEW STAT 10/24/2022 9:50 PM DISTRIBUTOR OPERATOR POC GLUCOSE 10/24/2022 9:40 PM DISTRIBUTOR OPERATOR CLEAR TOP EXTRA URINE STAT 10/24/2022 TUBE 9:38 PM DISTRIBUTOR OPERATOR UA LEOS TOP TUBE STAT 10/24/2022 9:38 PM DISTRIBUTOR OPERATOR URINALYSIS MICROSCOPIC STAT 10/24/2022 REFLEX TO CULTURE 9:38 PM DISTRIBUTOR OPERATOR HC URINALYSIS UAR STAT 10/24/2022 9:38 PM DISTRIBUTOR OPERATOR HC TSH SCREEN STAT 10/24/2022 9:38 PM DISTRIBUTOR OPERATOR HC PT(INR) STAT 10/24/2022 9:38 PM DISTRIBUTOR OPERATOR HC CBC W/ AUTOMATED DIFF STAT 10/24/2022 9:38 PM DISTRIBUTOR OPERATOR HC MAGNESIUM STAT 10/24/2022 9:38 PM DISTRIBUTOR OPERATOR HC COMPREHENSIVE STAT 10/24/2022 METABOLIC PANEL 9:[address] HEAD EXTERNAL IMAGING Routine 10/24/2022 12:00 AM DISTRIBUTOR OPERATOR TELEMETRY STRIPS-SCAN 10/24/2022 12:00 AM DISTRIBUTOR OPERATOR TELEMETRY STRIPS-SCAN 10/24/2022 12:00 AM DISTRIBUTOR OPERATOR TELEMETRY STRIPS-SCAN 10/24/2022 12:00 AM DISTRIBUTOR OPERATOR TELEMETRY STRIPS-SCAN 10/24/2022 12:00 AM DISTRIBUTOR OPERATOR TELEMETRY STRIPS-SCAN 10/24/2022 12:00 AM DISTRIBUTOR OPERATOR TELEMETRY STRIPS-SCAN 10/24/2022 12:00 AM DISTRIBUTOR OPERATOR TELEMETRY STRIPS-SCAN 10/24/2022 12:00 AM DISTRIBUTOR OPERATOR TELEMETRY STRIPS-SCAN 10/24/2022 12:00 AM DISTRIBUTOR OPERATOR TELEMETRY STRIPS-SCAN 10/24/2022 12:00 AM DISTRIBUTOR OPERATOR TELEMETRY STRIPS-SCAN 10/24/2022 12:00 AM DISTRIBUTOR OPERATOR TELEMETRY STRIPS-SCAN 10/24/2022 12:00 AM DISTRIBUTOR OPERATOR documented in this encounter Results * (ABNORMAL) COMPREHENSIVE METABOLIC PANEL (11/05/2022 4:04 AM DISTRIBUTOR OPERATOR) Pathologist Signature Component Value Ref Test Method Analysis Performed A t Range Time Sodium 141 137 - 11/05/2022 [facility] DEPT PAT H AND 147 5:19 AM LAB MEDICINE MMOL/L DISTRIBUTOR OPERATOR Potassium 3.5 3.5 - 11/05/2022 [facility] DEPT PAT H AND 5.1 5:19 AM LAB MEDICINE MMOL/L DISTRIBUTOR OPERATOR Chloride 105 98 - 110 11/05/2022 [facility] DEPT PAT H AND MMOL/L 5:19 AM LAB MEDICINE DISTRIBUTOR OPERATOR Glucose 95 70 - 100 11/05/2022 [facility] DEPT PAT H AND MG/DL 5:19 AM LAB MEDICINE DISTRIBUTOR OPERATOR Blood Urea Nitrogen 21 7 - 25 11/05/2022 [facility] DEPT PATH AND MG/DL 5:19 AM LAB MEDICINE DISTRIBUTOR OPERATOR Creatinine 0.77 0.4 - 11/05/2022 [facility] DEPT PAT H AND 1.24 5:19 AM LAB MEDICINE MG/DL DISTRIBUTOR OPERATOR Calcium 8.9 8.5 - 11/05/2022 [facility] DEPT PAT H AND 10.6 5:19 AM LAB MEDICINE MG/DL DISTRIBUTOR OPERATOR Total Protein 6.8 6.0 - 11/05/2022 [facility] DEPT P ATH AND 8.0 G/DL 5:19 AM LAB MEDICINE DISTRIBUTOR OPERATOR Total Bilirubin 0.5 0.3 - 11/05/2022 [facility] DEPT PATH AND 1.2 5:19 AM LAB MEDICINE MG/DL DISTRIBUTOR OPERATOR Albumin 3.4 (L) 3.5 - 11/05/2022 [facility] DEPT PAT H AND 5.0 G/DL 5:19 AM LAB MEDICINE DISTRIBUTOR OPERATOR Alk Phosphatase 105 25 - 110 11/05/2022 [facility] DEPT PATH AND U/L 5:19 AM LAB MEDICINE DISTRIBUTOR OPERATOR AST (SGOT) 62 (H) 7 - 40 11/05/2022 [facility] DEPT PAT H AND U/L 5:19 AM LAB MEDICINE DISTRIBUTOR OPERATOR CO2 22 21 - 30 11/05/2022 [facility] DEPT PAT H AND MMOL/L 5:19 AM LAB MEDICINE DISTRIBUTOR OPERATOR ALT (SGPT) 54 7 - 56 11/05/2022 [facility] DEPT PAT H AND U/L 5:19 AM LAB MEDICINE DISTRIBUTOR OPERATOR Anion Gap 14 (H) 3 - 12 11/05/2022 [facility] DEPT PAT H AND 5:19 AM LAB MEDICINE DISTRIBUTOR OPERATOR eGFR >60 >60 11/05/2022 [facility] DEPT PAT H AND mL/min 5:19 AM LAB MEDICINE DISTRIBUTOR OPERATOR Comment: eGFR calculated using the CKD-EPIcr_R equation Anatomical Location / Laterality Collection Method / Volume Eva ection Time Received Time Specimen (Source) BLOOD / Unknown 11/05/2022 4:04 AM DISTRIBUTOR OPERATOR 11/05/20 4:05 AM DISTRIBUTOR OPERATOR Jose Manuel Montague MD LABORATORY ORDERABLES City/State/ZIP Code Phone Number Performing [place] [address] [facility] DEPT PATH AND [address] [facility] LAB MEDICINE * (ABNORMAL) CBC (11/05/2022 4:04 AM DISTRIBUTOR OPERATOR) Pathologist Signature Component Value Ref Test Method Analysis Performed A t Range Time White Blood Cells 8.3 4.5 - 11/05/2022 [facility] DE PT PATH AND 11.0 4:58 AM LAB MEDICINE K/UL DISTRIBUTOR OPERATOR RBC 3.63 (L) 4.4 - 11/05/2022 [facility] DEPT PAT H AND 5.5 M/UL 4:58 AM LAB MEDICINE DISTRIBUTOR OPERATOR Hemoglobin 12.0 (L) 13.5 - 11/05/2022 [facility] DEPT PAT H AND 16.5 4:58 AM LAB MEDICINE GM/DL DISTRIBUTOR OPERATOR Hematocrit 35.7 (L) 40 - 50 11/05/2022 [facility] DEPT PAT H AND % 4:58 AM LAB MEDICINE DISTRIBUTOR OPERATOR MCV 98.3 80 - 100 11/05/2022 [facility] DEPT PAT H AND FL 4:58 AM LAB MEDICINE DISTRIBUTOR OPERATOR MCH 32.9 26 - 34 11/05/2022 [facility] DEPT PAT H AND PG 4:58 AM LAB MEDICINE DISTRIBUTOR OPERATOR MCHC 33.5 32.0 - 11/05/2022 [facility] DEPT PAT H AND 36.0 4:58 AM LAB MEDICINE G/DL DISTRIBUTOR OPERATOR RDW 13.8 11 - 15 11/05/2022 [facility] DEPT PAT H AND % 4:58 AM LAB MEDICINE DISTRIBUTOR OPERATOR Platelet Count 333 150 - 11/05/2022 [facility] DEPT PATH AND 400 K/UL 4:58 AM LAB MEDICINE DISTRIBUTOR OPERATOR MPV 8.9 7 - 11 11/05/2022 [facility] DEPT PAT H AND FL 4:58 AM LAB MEDICINE DISTRIBUTOR OPERATOR Anatomical Location / Laterality Collection Method / Volume Eva ection Time Received Time Specimen (Source) BLOOD / Unknown 11/05/2022 4:04 AM DISTRIBUTOR OPERATOR 11/05/20 4:05 AM DISTRIBUTOR OPERATOR Jose Manuel Montague MD LABORATORY ORDERABLES City/State/ZIP Code Phone Number Performing [place] [address] [facility] DEPT PATH AND [address] [facility] LAB MEDICINE * (ABNORMAL) CBC AND DIFF (11/03/2022 4:13 AM DISTRIBUTOR OPERATOR) Pathologist Signature Component Value Ref Test Method Analysis Performed A t Range Time White Blood Cells 9.0 4.5 - 11/03/2022 [facility] DE PT PATH AND 11.0 5:08 AM LAB MEDICINE K/UL DISTRIBUTOR OPERATOR RBC 3.59 (L) 4.4 - 11/03/2022 [facility] DEPT PAT H AND 5.5 M/UL 5:08 AM LAB MEDICINE DISTRIBUTOR OPERATOR Hemoglobin 11.9 (L) 13.5 - 11/03/2022 [facility] DEPT PAT H AND 16.5 5:08 AM LAB MEDICINE GM/DL DISTRIBUTOR OPERATOR Hematocrit 35.3 (L) 40 - 50 11/03/2022 [facility] DEPT PAT H AND % 5:08 AM LAB MEDICINE DISTRIBUTOR OPERATOR MCV 98.3 80 - 100 11/03/2022 [facility] DEPT PAT H AND FL 5:08 AM LAB MEDICINE DISTRIBUTOR OPERATOR MCH 33.1 26 - 34 11/03/2022 [facility] DEPT PAT H AND PG 5:08 AM LAB MEDICINE DISTRIBUTOR OPERATOR MCHC 33.7 32.0 - 11/03/2022 [facility] DEPT PAT H AND 36.0 5:08 AM LAB MEDICINE G/DL DISTRIBUTOR OPERATOR RDW 14.1 11 - 15 11/03/2022 [facility] DEPT PAT H AND % 5:08 AM LAB MEDICINE DISTRIBUTOR OPERATOR Platelet Count 247 150 - 11/03/2022 [facility] DEPT PATH AND 400 K/UL 5:08 AM LAB MEDICINE DISTRIBUTOR OPERATOR MPV 9.3 7 - 11 11/03/2022 [facility] DEPT PAT H AND FL 5:08 AM LAB MEDICINE DISTRIBUTOR OPERATOR Neutrophils 79 (H) 41 - 77 11/03/2022 [facility] DEPT PAT H AND % 5:08 AM LAB MEDICINE DISTRIBUTOR OPERATOR Lymphocytes 7 (L) 24 - 44 11/03/2022 [facility] DEPT PAT H AND % 5:08 AM LAB MEDICINE DISTRIBUTOR OPERATOR Monocytes 12 4 - 12 % 11/03/2022 [facility] DEPT PAT H AND 5:08 AM LAB MEDICINE DISTRIBUTOR OPERATOR Eosinophils 2 0 - 5 % 11/03/2022 [facility] DEPT PAT H AND 5:08 AM LAB MEDICINE DISTRIBUTOR OPERATOR Basophils 0 0 - 2 % 11/03/2022 [facility] DEPT PAT H AND 5:08 AM LAB MEDICINE DISTRIBUTOR OPERATOR Absolute Neutrophil 7.11 (H) 1.8 - 11/03/2022 [facility] DEPT PATH AND Count 7.0 K/UL 5:08 AM LAB MEDICINE DISTRIBUTOR OPERATOR Absolute Lymph Count 0.60 (L) 1.0 - 11/03/2022 [facility] DEPT PATH AND 4.8 K/UL 5:08 AM LAB MEDICINE DISTRIBUTOR OPERATOR Absolute Monocyte 1.12 (H) 0 - 0.80 11/03/2022 [facility] DE PT PATH AND Count K/UL 5:08 AM LAB MEDICINE DISTRIBUTOR OPERATOR Absolute Eosinophil 0.19 0 - 0.45 11/03/2022 [facility] DEPT PATH AND Count K/UL 5:08 AM LAB MEDICINE DISTRIBUTOR OPERATOR Absolute Basophil 0.02 0 - 0.20 11/03/2022 [facility] DE PT PATH AND Count K/UL 5:08 AM LAB MEDICINE DISTRIBUTOR OPERATOR Anatomical Location / Laterality Collection Method / Volume Eva ection Time Received Time Specimen (Source) BLOOD / Unknown 11/03/2022 4:13 AM DISTRIBUTOR OPERATOR 11/03/20 4:14 AM DISTRIBUTOR OPERATOR Sahil Mejia MD LABORATORY ORDERABLES City/State/ZIP Code Phone Number Performing [place] [address] [facility] DEPT PATH AND [address] [facility] LAB MEDICINE * (ABNORMAL) COMPREHENSIVE METABOLIC PANEL (11/03/2022 4:13 AM DISTRIBUTOR OPERATOR) Pathologist Signature Component Value Ref Test Method Analysis Performed A t Range Time Sodium 141 137 - 11/03/2022 [facility] DEPT PAT H AND 147 5:35 AM LAB MEDICINE MMOL/L DISTRIBUTOR OPERATOR Potassium 3.6 3.5 - 11/03/2022 [facility] DEPT PAT H AND 5.1 5:35 AM LAB MEDICINE MMOL/L DISTRIBUTOR OPERATOR Chloride 105 98 - 110 11/03/2022 [facility] DEPT PAT H AND MMOL/L 5:35 AM LAB MEDICINE DISTRIBUTOR OPERATOR Glucose 105 (H) 70 - 100 11/03/2022 [facility] DEPT PAT H AND MG/DL 5:35 AM LAB MEDICINE DISTRIBUTOR OPERATOR Blood Urea Nitrogen 25 7 - 25 11/03/2022 [facility] DEPT PATH AND MG/DL 5:35 AM LAB MEDICINE DISTRIBUTOR OPERATOR Creatinine 0.84 0.4 - 11/03/2022 [facility] DEPT PAT H AND 1.24 5:35 AM LAB MEDICINE MG/DL DISTRIBUTOR OPERATOR Calcium 8.6 8.5 - 11/03/2022 [facility] DEPT PAT H AND 10.6 5:35 AM LAB MEDICINE MG/DL DISTRIBUTOR OPERATOR Total Protein 6.4 6.0 - 11/03/2022 [facility] DEPT P ATH AND 8.0 G/DL 5:35 AM LAB MEDICINE DISTRIBUTOR OPERATOR Total Bilirubin 0.5 0.3 - 11/03/2022 [facility] DEPT PATH AND 1.2 5:35 AM LAB MEDICINE MG/DL DISTRIBUTOR OPERATOR Albumin 3.5 3.5 - 11/03/2022 [facility] DEPT PAT H AND 5.0 G/DL 5:35 AM LAB MEDICINE DISTRIBUTOR OPERATOR Alk Phosphatase 88 25 - 110 11/03/2022 [facility] DEPT PATH AND U/L 5:35 AM LAB MEDICINE DISTRIBUTOR OPERATOR AST (SGOT) 43 (H) 7 - 40 11/03/2022 [facility] DEPT PAT H AND U/L 5:35 AM LAB MEDICINE DISTRIBUTOR OPERATOR CO2 26 21 - 30 11/03/2022 [facility] DEPT PAT H AND MMOL/L 5:35 AM LAB MEDICINE DISTRIBUTOR OPERATOR ALT (SGPT) 35 7 - 56 11/03/2022 [facility] DEPT PAT H AND U/L 5:35 AM LAB MEDICINE DISTRIBUTOR OPERATOR Anion Gap 10 3 - 12 11/03/2022 [facility] DEPT PAT H AND 5:35 AM LAB MEDICINE DISTRIBUTOR OPERATOR eGFR >60 >60 11/03/2022 [facility] DEPT PAT H AND mL/min 5:35 AM LAB MEDICINE DISTRIBUTOR OPERATOR Comment: eGFR calculated using the CKD-EPIcr_R equation Anatomical Location / Laterality Collection Method / Volume Eva ection Time Received Time Specimen (Source) BLOOD / Unknown 11/03/2022 4:13 AM DISTRIBUTOR OPERATOR 11/03/20 4:14 AM DISTRIBUTOR OPERATOR Sahil Mejia MD LABORATORY ORDERABLES City/State/ZIP Code Phone Number Performing [place] [address] [facility] DEPT PATH AND [address] [facility] LAB MEDICINE * (ABNORMAL) CBC AND DIFF (11/02/2022 4:04 AM DISTRIBUTOR OPERATOR) Pathologist Signature Component Value Ref Test Method Analysis Performed A t Range Time White Blood Cells 7.9 4.5 - 11/02/2022 [facility] DE PT PATH AND 11.0 4:54 AM LAB MEDICINE K/UL DISTRIBUTOR OPERATOR RBC 3.48 (L) 4.4 - 11/02/2022 [facility] DEPT PAT H AND 5.5 M/UL 4:54 AM LAB MEDICINE DISTRIBUTOR OPERATOR Hemoglobin 11.5 (L) 13.5 - 11/02/2022 [facility] DEPT PAT H AND 16.5 4:54 AM LAB MEDICINE GM/DL DISTRIBUTOR OPERATOR Hematocrit 34.5 (L) 40 - 50 11/02/2022 [facility] DEPT PAT H AND % 4:54 AM LAB MEDICINE DISTRIBUTOR OPERATOR MCV 99.3 80 - 100 11/02/2022 [facility] DEPT PAT H AND FL 4:54 AM LAB MEDICINE DISTRIBUTOR OPERATOR MCH 33.1 26 - 34 11/02/2022 [facility] DEPT PAT H AND PG 4:54 AM LAB MEDICINE DISTRIBUTOR OPERATOR MCHC 33.3 32.0 - 11/02/2022 [facility] DEPT PAT H AND 36.0 4:54 AM LAB MEDICINE G/DL DISTRIBUTOR OPERATOR RDW 14.2 11 - 15 11/02/2022 [facility] DEPT PAT H AND % 4:54 AM LAB MEDICINE DISTRIBUTOR OPERATOR Platelet Count 197 150 - 11/02/2022 [facility] DEPT PATH AND 400 K/UL 4:54 AM LAB MEDICINE DISTRIBUTOR OPERATOR MPV 9.3 7 - 11 11/02/2022 [facility] DEPT PAT H AND FL 4:54 AM LAB MEDICINE DISTRIBUTOR OPERATOR Neutrophils 76 41 - 77 11/02/2022 [facility] DEPT PAT H AND % 4:54 AM LAB MEDICINE DISTRIBUTOR OPERATOR Lymphocytes 9 (L) 24 - 44 11/02/2022 [facility] DEPT PAT H AND % 4:54 AM LAB MEDICINE DISTRIBUTOR OPERATOR Monocytes 13 (H) 4 - 12 % 11/02/2022 [facility] DEPT PAT H AND 4:54 AM LAB MEDICINE DISTRIBUTOR OPERATOR Eosinophils 2 0 - 5 % 11/02/2022 [facility] DEPT PAT H AND 4:54 AM LAB MEDICINE DISTRIBUTOR OPERATOR Basophils 0 0 - 2 % 11/02/2022 [facility] DEPT PAT H AND 4:54 AM LAB MEDICINE DISTRIBUTOR OPERATOR Absolute Neutrophil 6.02 1.8 - 11/02/2022 [facility] DEPT PATH AND Count 7.0 K/UL 4:54 AM LAB MEDICINE DISTRIBUTOR OPERATOR Absolute Lymph Count 0.70 (L) 1.0 - 11/02/2022 [facility] DEPT PATH AND 4.8 K/UL 4:54 AM LAB MEDICINE DISTRIBUTOR OPERATOR Absolute Monocyte 1.03 (H) 0 - 0.80 11/02/2022 [facility] DE PT PATH AND Count K/UL 4:54 AM LAB MEDICINE DISTRIBUTOR OPERATOR Absolute Eosinophil 0.16 0 - 0.45 11/02/2022 [facility] DEPT PATH AND Count K/UL 4:54 AM LAB MEDICINE DISTRIBUTOR OPERATOR Absolute Basophil 0.03 0 - 0.20 11/02/2022 [facility] DE PT PATH AND Count K/UL 4:54 AM LAB MEDICINE DISTRIBUTOR OPERATOR Anatomical Location / Laterality Collection Method / Volume Eva ection Time Received Time Specimen (Source) BLOOD / Unknown 11/02/2022 4:04 AM DISTRIBUTOR OPERATOR 11/02/20 4:05 AM DISTRIBUTOR OPERATOR Sahil Mejia MD LABORATORY ORDERABLES City/State/ZIP Code Phone Number Performing [place] [address] [facility] DEPT PATH AND [address] [facility] LAB MEDICINE * (ABNORMAL) COMPREHENSIVE METABOLIC PANEL (11/02/2022 4:04 AM DISTRIBUTOR OPERATOR) Pathologist Signature Component Value Ref Test Method Analysis Performed A t Range Time Sodium 140 137 - 11/02/2022 [facility] DEPT PAT H AND 147 5:20 AM LAB MEDICINE MMOL/L DISTRIBUTOR OPERATOR Potassium 3.8 3.5 - 11/02/2022 [facility] DEPT PAT H AND 5.1 5:20 AM LAB MEDICINE MMOL/L DISTRIBUTOR OPERATOR Chloride 104 98 - 110 11/02/2022 [facility] DEPT PAT H AND MMOL/L 5:20 AM LAB MEDICINE DISTRIBUTOR OPERATOR Glucose 93 70 - 100 11/02/2022 [facility] DEPT PAT H AND MG/DL 5:20 AM LAB MEDICINE DISTRIBUTOR OPERATOR Blood Urea Nitrogen 35 (H) 7 - 25 11/02/2022 [facility] DEPT PATH AND MG/DL 5:20 AM LAB MEDICINE DISTRIBUTOR OPERATOR Creatinine 1.03 0.4 - 11/02/2022 [facility] DEPT PAT H AND 1.24 5:20 AM LAB MEDICINE MG/DL DISTRIBUTOR OPERATOR Calcium 8.6 8.5 - 11/02/2022 [facility] DEPT PAT H AND 10.6 5:20 AM LAB MEDICINE MG/DL DISTRIBUTOR OPERATOR Total Protein 6.1 6.0 - 11/02/2022 [facility] DEPT P ATH AND 8.0 G/DL 5:20 AM LAB MEDICINE DISTRIBUTOR OPERATOR Total Bilirubin 0.5 0.3 - 11/02/2022 [facility] DEPT PATH AND 1.2 5:20 AM LAB MEDICINE MG/DL DISTRIBUTOR OPERATOR Albumin 3.4 (L) 3.5 - 11/02/2022 [facility] DEPT PAT H AND 5.0 G/DL 5:20 AM LAB MEDICINE DISTRIBUTOR OPERATOR Alk Phosphatase 81 25 - 110 11/02/2022 [facility] DEPT PATH AND U/L 5:20 AM LAB MEDICINE DISTRIBUTOR OPERATOR AST (SGOT) 49 (H) 7 - 40 11/02/2022 [facility] DEPT PAT H AND U/L 5:20 AM LAB MEDICINE DISTRIBUTOR OPERATOR CO2 28 21 - 30 11/02/2022 [facility] DEPT PAT H AND MMOL/L 5:20 AM LAB MEDICINE DISTRIBUTOR OPERATOR ALT (SGPT) 38 7 - 56 11/02/2022 [facility] DEPT PAT H AND U/L 5:20 AM LAB MEDICINE DISTRIBUTOR OPERATOR Anion Gap 8 3 - 12 11/02/2022 [facility] DEPT PAT H AND 5:20 AM LAB MEDICINE DISTRIBUTOR OPERATOR eGFR >60 >60 11/02/2022 [facility] DEPT PAT H AND mL/min 5:20 AM LAB MEDICINE DISTRIBUTOR OPERATOR Comment: eGFR calculated using the CKD-EPIcr_R equation Anatomical Location / Laterality Collection Method / Volume Eva ection Time Received Time Specimen (Source) BLOOD / Unknown 11/02/2022 4:04 AM DISTRIBUTOR OPERATOR 11/02/20 4:05 AM DISTRIBUTOR OPERATOR Sahil Mejia MD LABORATORY ORDERABLES City/State/ZIP Code Phone Number Performing [place] [address] [facility] DEPT PATH AND [address] [facility]. LAB MEDICINE * (ABNORMAL) CBC AND DIFF (11/01/2022 4:02 AM DISTRIBUTOR OPERATOR) Pathologist Signature Component Value Ref Test Method Analysis Performed A t Range Time White Blood Cells 6.1 4.5 - 11/01/2022 [facility] DE PT PATH AND 11.0 4:30 AM LAB MEDICINE K/UL DISTRIBUTOR OPERATOR RBC 3.51 (L) 4.4 - 11/01/2022 [facility] DEPT PAT H AND 5.5 M/UL 4:30 AM LAB MEDICINE DISTRIBUTOR OPERATOR Hemoglobin 11.8 (L) 13.5 - 11/01/2022 [facility] DEPT PAT H AND 16.5 4:30 AM LAB MEDICINE GM/DL DISTRIBUTOR OPERATOR Hematocrit 34.8 (L) 40 - 50 11/01/2022 [facility] DEPT PAT H AND % 4:30 AM LAB MEDICINE DISTRIBUTOR OPERATOR MCV 99.2 80 - 100 11/01/2022 [facility] DEPT PAT H AND FL 4:30 AM LAB MEDICINE DISTRIBUTOR OPERATOR MCH 33.5 26 - 34 11/01/2022 [facility] DEPT PAT H AND PG 4:30 AM LAB MEDICINE DISTRIBUTOR OPERATOR MCHC 33.8 32.0 - 11/01/2022 [facility] DEPT PAT H AND 36.0 4:30 AM LAB MEDICINE G/DL DISTRIBUTOR OPERATOR RDW 14.0 11 - 15 11/01/2022 [facility] DEPT PAT H AND % 4:30 AM LAB MEDICINE DISTRIBUTOR OPERATOR Platelet Count 165 150 - 11/01/2022 [facility] DEPT PATH AND 400 K/UL 4:30 AM LAB MEDICINE DISTRIBUTOR OPERATOR MPV 8.8 7 - 11 11/01/2022 [facility] DEPT PAT H AND FL 4:30 AM LAB MEDICINE DISTRIBUTOR OPERATOR Neutrophils 74 41 - 77 11/01/2022 [facility] DEPT PAT H AND % 4:30 AM LAB MEDICINE DISTRIBUTOR OPERATOR Lymphocytes 9 (L) 24 - 44 11/01/2022 [facility] DEPT PAT H AND % 4:30 AM LAB MEDICINE DISTRIBUTOR OPERATOR Monocytes 16 (H) 4 - 12 % 11/01/2022 [facility] DEPT PAT H AND 4:30 AM LAB MEDICINE DISTRIBUTOR OPERATOR Eosinophils 1 0 - 5 % 11/01/2022 [facility] DEPT PAT H AND 4:30 AM LAB MEDICINE DISTRIBUTOR OPERATOR Basophils 0 0 - 2 % 11/01/2022 [facility] DEPT PAT H AND 4:30 AM LAB MEDICINE DISTRIBUTOR OPERATOR Absolute Neutrophil 4.50 1.8 - 11/01/2022 [facility] DEPT PATH AND Count 7.0 K/UL 4:30 AM LAB MEDICINE DISTRIBUTOR OPERATOR Absolute Lymph Count 0.53 (L) 1.0 - 11/01/2022 [facility] DEPT PATH AND 4.8 K/UL 4:30 AM LAB MEDICINE DISTRIBUTOR OPERATOR Absolute Monocyte 1.00 (H) 0 - 0.80 11/01/2022 [facility] DE PT PATH AND Count K/UL 4:30 AM LAB MEDICINE DISTRIBUTOR OPERATOR Absolute Eosinophil 0.06 0 - 0.45 11/01/2022 [facility] DEPT PATH AND Count K/UL 4:30 AM LAB MEDICINE DISTRIBUTOR OPERATOR Absolute Basophil 0.02 0 - 0.20 11/01/2022 [facility] DE PT PATH AND Count K/UL 4:30 AM LAB MEDICINE DISTRIBUTOR OPERATOR Anatomical Location / Laterality Collection Method / Volume Eva ection Time Received Time Specimen (Source) BLOOD / Unknown 11/01/2022 4:02 AM DISTRIBUTOR OPERATOR 11/01/20 4:03 AM DISTRIBUTOR OPERATOR Sahil Mejia MD LABORATORY ORDERABLES City/State/ZIP Code Phone Number Performing [place] [address] [facility] DE[facility] PATH AND [address] [facility] LAB MEDICINE * (ABNORMAL) COMPREHENSIVE METABOLIC PANEL (11/01/2022 4:02 AM DISTRIBUTOR OPERATOR) Pathologist Signature Component Value Ref Test Method Analysis Performed A t Range Time Sodium 145 137 - 11/01/2022 [facility] DEPT PAT H AND 147 4:56 AM LAB MEDICINE MMOL/L DISTRIBUTOR OPERATOR Potassium 3.6 3.5 - 11/01/2022 [facility] DEPT PAT H AND 5.1 4:56 AM LAB MEDICINE MMOL/L DISTRIBUTOR OPERATOR Chloride 109 98 - 110 11/01/2022 [facility] DEPT PAT H AND MMOL/L 4:56 AM LAB MEDICINE DISTRIBUTOR OPERATOR Glucose 89 70 - 100 11/01/2022 [facility] DEPT PAT H AND MG/DL 4:56 AM LAB MEDICINE DISTRIBUTOR OPERATOR Blood Urea Nitrogen 28 (H) 7 - 25 11/01/2022 [facility] DEPT PATH AND MG/DL 4:56 AM LAB MEDICINE DISTRIBUTOR OPERATOR Creatinine 1.01 0.4 - 11/01/2022 [facility] DEPT PAT H AND 1.24 4:56 AM LAB MEDICINE MG/DL DISTRIBUTOR OPERATOR Calcium 8.7 8.5 - 11/01/2022 [facility] DEPT PAT H AND 10.6 4:56 AM LAB MEDICINE MG/DL DISTRIBUTOR OPERATOR Total Protein 6.1 6.0 - 11/01/2022 [facility] DEPT P ATH AND 8.0 G/DL 4:56 AM LAB MEDICINE DISTRIBUTOR OPERATOR Total Bilirubin 0.5 0.3 - 11/01/2022 [facility] DEPT PATH AND 1.2 4:56 AM LAB MEDICINE MG/DL DISTRIBUTOR OPERATOR Albumin 3.3 (L) 3.5 - 11/01/2022 [facility] DEPT PAT H AND 5.0 G/DL 4:56 AM LAB MEDICINE DISTRIBUTOR OPERATOR Alk Phosphatase 83 25 - 110 11/01/2022 [facility] DEPT PATH AND U/L 4:56 AM LAB MEDICINE DISTRIBUTOR OPERATOR AST (SGOT) 63 (H) 7 - 40 11/01/2022 [facility] DEPT PAT H AND U/L 4:56 AM LAB MEDICINE DISTRIBUTOR OPERATOR CO2 24 21 - 30 11/01/2022 [facility] DEPT PAT H AND MMOL/L 4:56 AM LAB MEDICINE DISTRIBUTOR OPERATOR ALT (SGPT) 40 7 - 56 11/01/2022 [facility] DEPT PAT H AND U/L 4:56 AM LAB MEDICINE DISTRIBUTOR OPERATOR Anion Gap 12 3 - 12 11/01/2022 [facility] DEPT PAT H AND 4:56 AM LAB MEDICINE DISTRIBUTOR OPERATOR eGFR >60 >60 11/01/2022 [facility] DEPT PAT H AND mL/min 4:56 AM LAB MEDICINE DISTRIBUTOR OPERATOR Comment: eGFR calculated using the CKD-EPIcr_R equation Anatomical Location / Laterality Collection Method / Volume Eva ection Time Received Time Specimen (Source) BLOOD / Unknown 11/01/2022 4:02 AM DISTRIBUTOR OPERATOR 11/01/20 4:03 AM DISTRIBUTOR OPERATOR Sahil Mejia MD LABORATORY ORDERABLES City/State/ZIP Code Phone Number Performing [place] [address] [facility] DEPT PATH AND [address] [facility] LAB MEDICINE * CT CHEST WO CONTRAST (10/31/2022 2:41 PM DISTRIBUTOR OPERATOR) Modality Anatomical Region Laterality Computed Tomography CHEST Anatomical Location / Laterality Collection Method / Volume Eva ection Time Received Time Specimen (Source) 10/31/2022 2:54 PM DISTRIBUTOR OPERATOR Impressions 10/31/2022 3:29 PM DISTRIBUTOR OPERATOR 1. Slight decrease in size of right up per lobe pulmonary mass again most suspicious for a primary pulmonary neoplasm. Correlate with pathology results. 2. Improved peripheral predominant pat joseph ground glass opacities, likely represents improving yet persistent underlying infection. 3. Similar diffuse nodularity througho ut all 5 lobes and pleura, concerning for metastatic disease versus diffuse infectious process. 4. Similar mediastinal and hilar lymph adenopathy, most likely representing jodie metastatic disease or less likely reactive lymph nodes. 5. Right renal lesion of indeterminate density is not well appreciated in the absence IV contrast. Correlation with ultrasound is recommended. By my electronic signature, I attest that I have personally reviewed the images for this examination and formulated the interpretations and opinions expressed in this report Finalized by Yamil Ferris MD on 10/31/2022 3:29 PM. Dictated by Cayden Cardona MD on 10/31/2022 2:54 PM. Narrative 10/31/2022 3:[address] CHEST Clinical Indication: navigational bronchoscopic biopsy of a right upper lobe lesion. Technique: Multiple contiguous axial CT images were obtained through the chest without IV contrast.Post processing coronal and sagittal reconstruction images were made from the axial images. IV contrast: None. Comparison: PET/CT 10/30/2022, CT chest 10/26/2022. FINDINGS: Evaluation of the mediastinum and dahlia, including the vasculature and for lymphadenopathy, is limited without the use of IV contrast. Lower Neck: Unremarkable Axilla, Mediastinum and Dahlia: Mediastinal and hilar granulomas. Similar mediastinal and hilar lymphadenopathy with a farm loan representative right paratracheal node measuring 1.6 cm short axis. Previously measured left paratracheal conglomerate is ill-defined and difficult to compare in the absence of IV contrast. Heart and Great Vessels: Heart is mildly enlarged. No pericardial effusion. Severe coronary artery calcifications. Prior aortic root repair. Moderate mitral annular calcifications. The aorta and main pulmonary artery are normal in caliber. Airway, Lungs and Pleura: Retained secretions within the trachea. Moderate emphysema and scattered areas of scarring. Biapical pleural parenchymal scarring with pleural calcifications noted which can be seen in asbestos related pleural disease. Spiculated right upper lobe nodule measures 2.3 x 1.5 cm (series 5 image 192), previously 3.2 x 1.8 cm when measured similarly. Interval decrease in conspicuity of diffuse groundglass and patchy opacities. Similar appearance of innumerable pulmonary nodules with a slight peripheral predominance. Additional multiple pulmonary nodules are again noted, for example in the medial right lower lobe (series 5 image 463), and the left upper lobe (series 5 image 130). No pleural effusion or pneumothorax. Mild interlobular septal thickening and fissural nodularity, greatest at the lung bases. Upper Abdomen: Vascular calcifications. Layering hyperdensity in the gallbladder may represent sludge. Previously noted hypodense renal lesion is not well appreciated in the absence of IV contrast. Wedge-shaped hypodensity in the anterior aspect of the spleen, compatible with known infarct. Chest Wall and Osseous Structures: No aggressive osseous lesions. Mild thoracic spondylosis. Procedure Note Yamil Ferris MD - 10/31/2022 CT CHEST Clinical Indication: navigational bronchoscopic biopsy of a right upper lobe lesion. Technique: Multiple contiguous axial CT images were obtained through the chest without IV contrast.Post processing coronal and sagittal reconstruction images were made from the axial images. IV contrast: None. Comparison: PET/CT 10/30/2022, CT chest 10/26/2022. FINDINGS: Evaluation of the mediastinum and dahlia, including the vasculature and for lymphadenopathy, is limited without the use of IV contrast. Lower Neck: Unremarkable Axilla, Mediastinum and Dahlia: Mediastinal and hilar granulomas. Similar mediastinal and hilar lymphadenopathy with a farm loan representative right paratracheal node measuring 1.6 cm short axis. Previously measured left paratracheal conglomerate is ill-defined and difficult to compare in the absence of IV contrast. Heart and Great Vessels: Heart is mildly enlarged. No pericardial effusion. Severe coronary artery calcifications. Prior aortic root repair. Moderate mitral annular calcifications. The aorta and main pulmonary artery are normal in caliber. Airway, Lungs and Pleura: Retained secretions within the trachea. Moderate emphysema and scattered areas of scarring. Biapical pleural parenchymal scarring with pleural calcifications noted which can be seen in asbestos related pleural disease. Spiculated right upper lobe nodule measures 2.3 x 1.5 cm (series 5 image 192), previously 3.2 x 1.8 cm when measured similarly. Interval decrease in conspicuity of diffuse groundglass and patchy opacities. Similar appearance of innumerable pulmonary nodules with a slight peripheral predominance. Additional multiple pulmonary nodules are again noted, for example in the medial right lower lobe (series 5 image 463), and the left upper lobe (series 5 image 130). No pleural effusion or pneumothorax. Mild interlobular septal thickening and fissural nodularity, greatest at the lung bases. Upper Abdomen: Vascular calcifications. Layering hyperdensity in the gallbladder may represent sludge. Previously noted hypodense renal lesion is not well appreciated in the absence of IV contrast. Wedge-shaped hypodensity in the anterior aspect of the spleen, compatible with known infarct. Chest Wall and Osseous Structures: No aggressive osseous lesions. Mild thoracic spondylosis. IMPRESSION 1. Slight decrease in size of right upp er lobe pulmonary mass again most suspicious for a primary pulmonary neoplasm. Correlate with pathology results. 2. Improved peripheral predominant patc hy ground glass opacities, likely represents improving yet persistent underlying infection. 3. Similar diffuse nodularity throughou t all 5 lobes and pleura, concerning for metastatic disease versus diffuse infectious process. 4. Similar mediastinal and hilar lympha denopathy, most likely representing jodie metastatic disease or less likely reactive lymph nodes. 5. Right renal lesion of indeterminate density is not well appreciated in the absence IV contrast. Correlation with ultrasound is recommended. By my electronic signature, I attest that I have personally reviewed the images for this examination and formulated the interpretations and opinions expressed in this report Finalized by Yamil Ferris MD on 10/31/2022 3:29 PM. Dictated by Cayden Cardona MD on 10/31/2022 2:54 PM. Delano Sawant MD CT ORDERABLES * BRONCHOSCOPY (10/31/2022 2:34 PM DISTRIBUTOR OPERATOR) Pathologist Signature Component Value Ref Test Method Analysis Performed A t Range Time Provation Report Patient [facility] OTHER RESULTS Name: Scot Bell Procedure Date: 10/31/2022 2:34 PM [facility]: [id number] Date of : 1940 Gender: Male Attending Physician: Delano Sawant , , [id number] Procedure: Bronchoscopy Indications: Right upper lobe mass Providers: Delano Sawant (Doctor), Carlos Hernandez (Fellow), Elisabeth Cordero (Nurse), Danuta Pearson (Internal Controls Specialist) Referring Physician: Referral Self Medications: Tetricaine 0.25%/Epinep hrine 0.003% 10 mL nebulizer, Tetricaine 0.25%/Epinep hrine 0.003% topically on airway mucosa 10 mL, General Anesthesia Complication s: No immediate complication s Findings: The p190 bronchoscpe was introduced and the bilateral bronchial tree was inpsected to the segmental level. The yenni was sharp and the airways patent to the level of the segmental bronchi. No significant mucosal or endobronchia l lesions were noted. Mild mucoid secretions bilaterally that were easily aspirated. An endobronchia l ultrasound endoscope was utilized in order to assist with fine needle aspiration and/or characteriza tion of lymph node stations. Station 11L was first assessed for highest staging yield and measured 7 mm in diameter. A total of 8 FNA samples were obtained using an [employer]us [employer] 21 gauge needle in the left interlobar region (level 11L) and sent for routine cytology. Preliminary cytology was suggestive of atypical cells (final results are pending). Hemostasis was confirmed and the bronchoscope was withdrawn. Impression: - Right upper lobe mass - Lymph node sizing and sampling was performed. - Rapid On-Site Evaluation (NADEGE): Preliminary cytology: - 11L (interlobar) : suggestive of atypical cells. (Final results are pending). Estimated Blood Loss: Estimated blood loss: none. Recommendati on: - Await cytology results. Attending Participatio n: I was present and participated during the entire procedure, including non-torres portions. MD Delano Watkins, 10/31/2022 5:33:42 PM The attending physician has electronical ly signed and finalized this document. Carlos Hernandez, Number of Addenda: 0 Note Initiated On: 10/31/2022 2:34 PM Anatomical Location / Laterality Collection Method / Volume Eva ection Time Received Time Specimen (Source) 10/31/2022 2:34 PM DISTRIBUTOR OPERATOR Referral Self GI BRONCHOSCOPY ORDERABLES City/State/ZIP Code Phone Number Performing Address Organization [facility] OTHER RESULTS * (ABNORMAL) COMPREHENSIVE METABOLIC PANEL (10/31/2022 4:26 AM DISTRIBUTOR OPERATOR) Pathologist Signature Component Value Ref Test Method Analysis Performed A t Range Time Sodium 139 137 - 10/31/2022 [facility] DEPT PAT H AND 147 6:26 AM LAB MEDICINE MMOL/L DISTRIBUTOR OPERATOR Potassium 3.7 3.5 - 10/31/2022 [facility] DEPT PAT H AND 5.1 6:26 AM LAB MEDICINE MMOL/L DISTRIBUTOR OPERATOR Chloride 103 98 - 110 10/31/2022 [facility] DEPT PAT H AND MMOL/L 6:26 AM LAB MEDICINE DISTRIBUTOR OPERATOR Glucose 85 70 - 100 10/31/2022 [facility] DEPT PAT H AND MG/DL 6:26 AM LAB MEDICINE DISTRIBUTOR OPERATOR Blood Urea Nitrogen 21 7 - 25 10/31/2022 [facility] DEPT PATH AND MG/DL 6:26 AM LAB MEDICINE DISTRIBUTOR OPERATOR Creatinine 0.84 0.4 - 10/31/2022 [facility] DEPT PAT H AND 1.24 6:26 AM LAB MEDICINE MG/DL DISTRIBUTOR OPERATOR Calcium 8.8 8.5 - 10/31/2022 [facility] DEPT PAT H AND 10.6 6:26 AM LAB MEDICINE MG/DL DISTRIBUTOR OPERATOR Total Protein 6.6 6.0 - 10/31/2022 [facility] DE[facility] P ATH AND 8.0 G/DL 6:26 AM LAB MEDICINE DISTRIBUTOR OPERATOR Total Bilirubin 0.7 0.3 - 10/31/2022 [facility] DEPT PATH AND 1.2 6:26 AM LAB MEDICINE MG/DL DISTRIBUTOR OPERATOR Albumin 3.7 3.5 - 10/31/2022 [facility] DEPT PAT H AND 5.0 G/DL 6:26 AM LAB MEDICINE DISTRIBUTOR OPERATOR Alk Phosphatase 92 25 - 110 10/31/2022 [facility] DE[facility] PATH AND U/L 6:26 AM LAB MEDICINE DISTRIBUTOR OPERATOR AST (SGOT) 107 (H) 7 - 40 10/31/2022 [facility] DEPT PAT H AND U/L 6:26 AM LAB MEDICINE DISTRIBUTOR OPERATOR CO2 22 21 - 30 10/31/2022 [facility] DEPT PAT H AND MMOL/L 6:26 AM LAB MEDICINE DISTRIBUTOR OPERATOR ALT (SGPT) 50 7 - 56 10/31/2022 [facility] DEPT PAT H AND U/L 6:26 AM LAB MEDICINE DISTRIBUTOR OPERATOR Anion Gap 14 (H) 3 - 12 10/31/2022 [facility] DEPT PAT H AND 6:26 AM LAB MEDICINE DISTRIBUTOR OPERATOR eGFR >60 >60 10/31/2022 [facility] DEPT PAT H AND mL/min 6:26 AM LAB MEDICINE DISTRIBUTOR OPERATOR Comment: eGFR calculated using the CKD-EPIcr_R equation Anatomical Location / Laterality Collection Method / Volume Eva ection Time Received Time Specimen (Source) BLOOD / Unknown 10/31/2022 4:26 AM DISTRIBUTOR OPERATOR 10/31/20 4:27 AM DISTRIBUTOR OPERATOR Sahil Mejia MD LABORATORY ORDERABLES City/State/ZIP Code Phone Number Performing [place] [address] [facility] DEPT PATH AND [address] [facility] LAB MEDICINE * (ABNORMAL) CBC AND DIFF (10/31/2022 4:26 AM DISTRIBUTOR OPERATOR) Pathologist Signature Component Value Ref Test Method Analysis Performed A t Range Time White Blood Cells 7.5 4.5 - 10/31/2022 [facility] DE PT PATH AND 11.0 6:00 AM LAB MEDICINE K/UL DISTRIBUTOR OPERATOR RBC 3.77 (L) 4.4 - 10/31/2022 [facility] DEPT PAT H AND 5.5 M/UL 6:00 AM LAB MEDICINE DISTRIBUTOR OPERATOR Hemoglobin 12.8 (L) 13.5 - 10/31/2022 [facility] DEPT PAT H AND 16.5 6:00 AM LAB MEDICINE GM/DL DISTRIBUTOR OPERATOR Hematocrit 37.7 (L) 40 - 50 10/31/2022 [facility] DEPT PAT H AND % 6:00 AM LAB MEDICINE DISTRIBUTOR OPERATOR MCV 99.8 80 - 100 10/31/2022 [facility] DEPT PAT H AND FL 6:00 AM LAB MEDICINE DISTRIBUTOR OPERATOR MCH 33.8 26 - 34 10/31/2022 [facility] DEPT PAT H AND PG 6:00 AM LAB MEDICINE DISTRIBUTOR OPERATOR MCHC 33.9 32.0 - 10/31/2022 [facility] DEPT PAT H AND 36.0 6:00 AM LAB MEDICINE G/DL DISTRIBUTOR OPERATOR RDW 14.5 11 - 15 10/31/2022 [facility] DEPT PAT H AND % 6:00 AM LAB MEDICINE DISTRIBUTOR OPERATOR Platelet Count 157 150 - 10/31/2022 [facility] DEPT PATH AND 400 K/UL 6:00 AM LAB MEDICINE DISTRIBUTOR OPERATOR MPV 9.1 7 - 11 10/31/2022 [facility] DEPT PAT H AND FL 6:00 AM LAB MEDICINE DISTRIBUTOR OPERATOR Neutrophils 78 (H) 41 - 77 10/31/2022 [facility] DEPT PAT H AND % 6:00 AM LAB MEDICINE DISTRIBUTOR OPERATOR Lymphocytes 7 (L) 24 - 44 10/31/2022 [facility] DEPT PAT H AND % 6:00 AM LAB MEDICINE DISTRIBUTOR OPERATOR Monocytes 13 (H) 4 - 12 % 10/31/2022 [facility] DEPT PAT H AND 6:00 AM LAB MEDICINE DISTRIBUTOR OPERATOR Eosinophils 1 0 - 5 % 10/31/2022 [facility] DEPT PAT H AND 6:00 AM LAB MEDICINE DISTRIBUTOR OPERATOR Basophils 1 0 - 2 % 10/31/2022 [facility] DEPT PAT H AND 6:00 AM LAB MEDICINE DISTRIBUTOR OPERATOR Absolute Neutrophil 5.91 1.8 - 10/31/2022 [facility] DEPT PATH AND Count 7.0 K/UL 6:00 AM LAB MEDICINE DISTRIBUTOR OPERATOR Absolute Lymph Count 0.55 (L) 1.0 - 10/31/2022 [facility] DEPT PATH AND 4.8 K/UL 6:00 AM LAB MEDICINE DISTRIBUTOR OPERATOR Absolute Monocyte 1.01 (H) 0 - 0.80 10/31/2022 [facility] DE PT PATH AND Count K/UL 6:00 AM LAB MEDICINE DISTRIBUTOR OPERATOR Absolute Eosinophil 0.04 0 - 0.45 10/31/2022 [facility] DEPT PATH AND Count K/UL 6:00 AM LAB MEDICINE DISTRIBUTOR OPERATOR Absolute Basophil 0.04 0 - 0.20 10/31/2022 [facility] DE PT PATH AND Count K/UL 6:00 AM LAB MEDICINE DISTRIBUTOR OPERATOR Anatomical Location / Laterality Collection Method / Volume Eva ection Time Received Time Specimen (Source) BLOOD / Unknown 10/31/2022 4:26 AM DISTRIBUTOR OPERATOR 10/31/20 4:27 AM DISTRIBUTOR OPERATOR Chary Smith MD LABORATORY ORDERABLES City/State/ZIP Code Phone Number Performing [place] [address] [facility] DEPT PATH AND [address] [facility]. LAB MEDICINE * NM PET SCAN TORSO (SKULL-THIGHS) (10/30/2022 2:16 PM DISTRIBUTOR OPERATOR) Modality Anatomical Region Laterality Nuclear Medicine BODY/CAP Anatomical Location / Laterality Collection Method / Volume Eva ection Time Received Time Specimen (Source) 10/30/2022 5:37 PM DISTRIBUTOR OPERATOR Impressions 10/31/2022 9:33 AM DISTRIBUTOR OPERATOR Limited examination due to diffuse muscular uptake from hyperinsulinemia and misregistration. 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 Hypermetabolic mediastinal and bilateral hilar lymphadenopathy suggestive of jodie metastatic disease. Consider endobronchial ultrasound and biopsy for confirmation. Innumerable tiny pulmonary nodules, opacities, and septal thickening throughout both lungs suggestive of metastatic disease or possible superimposed infection. See recent CT chest. Finalized by Ji Cardenas M.D. on 10/31/2022 9:33 AM. Dictated by Ji Cardenas M.D. on 10/30/2022 5:37 PM. Narrative 10/31/2022 9:33 AM DISTRIBUTOR OPERATOR NM PET SCAN TORSO (SKULL-THIGHS) Radiopharmaceutical: 11.9 mCi F-18 Fluorodeoxyglucose (FDG) IV. Clinical Indication: Right upper lobe lung mass. Technique: PET imaging was performed from the skull to thighs 113 minutes after tracer administration. Low dose non-contrast CT imaging was performed for attenuation correction and localization purposes. Current mean hepatic SUV (reported for quality control checker purposes) is 1.4. Blood glucose level (at the time of radiopharmaceutical administration): 67 mg/dL Comparison: CT chest from October 26, 2022. FINDINGS: Head/Neck: No suspicious hypermetabolic lesion(s). Multiple photopenic infarcts. Chest: Hypermetabolic right upper lobe pulmonary mass with maximum SUV of 4.3. Hypermetabolic mediastinal and bilateral hilar lymph nodes. Mild to relatively low-grade uptake involving innumerable bilateral pulmonary nodules and opacities, greatest within the posterior left lower lobe. Abdomen/Pelvis: No suspicious hypermetabolic lesion(s). Osseous Structures: No suspicious hypermetabolic lesion(s). Additional CT Findings: See recent CT examinations. Calcific atherosclerosis. Bilateral iliac stents. Colonic diverticulosis. Procedure Note Ji Cardenas II, MD - 10/31/2022 NM PET SCAN TORSO (SKULL-THIGHS) Radiopharmaceutical: 11.9 mCi F-18 Fluorodeoxyglucose (FDG) IV. Clinical Indication: Right upper lobe lung mass. Technique: PET imaging was performed from the skull to thighs 113 minutes after tracer administration. Low dose non-contrast CT imaging was performed for attenuation correction and localization purposes. Current mean hepatic SUV (reported for quality control checker purposes) is 1.4. Blood glucose level (at the time of radiopharmaceutical administration): 67 mg/dL Comparison: CT chest from October 26, 2022. FINDINGS: Head/Neck: No suspicious hypermetabolic lesion(s). Multiple photopenic infarcts. Chest: Hypermetabolic right upper lobe pulmonary mass with maximum SUV of 4.3. Hypermetabolic mediastinal and bilateral hilar lymph nodes. Mild to relatively low-grade uptake involving innumerable bilateral pulmonary nodules and opacities, greatest within the posterior left lower lobe. Abdomen/Pelvis: No suspicious hypermetabolic lesion(s). Osseous Structures: No suspicious hypermetabolic lesion(s). Additional CT Findings: See recent CT examinations. Calcific atherosclerosis. Bilateral iliac stents. Colonic diverticulosis. IMPRESSION Limited examination due to diffuse muscular uptake from hyperinsulinemia and misregistration. 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 Hypermetabolic mediastinal and bilateral hilar lymphadenopathy suggestive of jodie metastatic disease. Consider endobronchial ultrasound and biopsy for confirmation. Innumerable tiny pulmonary nodules, opacities, and septal thickening throughout both lungs suggestive of metastatic disease or possible superimposed infection. See recent CT chest. Finalized by Ji Cardenas M.D. on 10/31/2022 9:33 AM. Dictated by Ji Cardenas M.D. on 10/30/2022 5:37 PM. Rafal Amaya MD [facility] [place] ORDERABLES * (ABNORMAL) BASIC METABOLIC PANEL (10/30/2022 4:21 AM DISTRIBUTOR OPERATOR) Pathologist Signature Component Value Ref Test Method Analysis Performed A t Range Time Sodium 141 137 - 10/30/2022 [facility] DEPT PAT H AND 147 6:07 AM LAB MEDICINE MMOL/L DISTRIBUTOR OPERATOR Potassium 4.2 3.5 - 10/30/2022 [facility] DEPT PAT H AND 5.1 6:07 AM LAB MEDICINE MMOL/L DISTRIBUTOR OPERATOR Chloride 110 98 - 110 10/30/2022 [facility] DEPT PAT H AND MMOL/L 6:07 AM LAB MEDICINE DISTRIBUTOR OPERATOR CO2 16 (L) 21 - 30 10/30/2022 [facility] DEPT PAT H AND MMOL/L 6:07 AM LAB MEDICINE DISTRIBUTOR OPERATOR Anion Gap 15 (H) 3 - 12 10/30/2022 [facility] DEPT PAT H AND 6:07 AM LAB MEDICINE DISTRIBUTOR OPERATOR Glucose 67 (L) 70 - 100 10/30/2022 [facility] DEPT PAT H AND MG/DL 6:07 AM LAB MEDICINE DISTRIBUTOR OPERATOR Blood Urea Nitrogen 26 (H) 7 - 25 10/30/2022 [facility] DEPT PATH AND MG/DL 6:07 AM LAB MEDICINE DISTRIBUTOR OPERATOR Creatinine 0.97 0.4 - 10/30/2022 [facility] DEPT PAT H AND 1.24 6:07 AM LAB MEDICINE MG/DL DISTRIBUTOR OPERATOR Calcium 8.5 8.5 - 10/30/2022 [facility] DEPT PAT H AND 10.6 6:07 AM LAB MEDICINE MG/DL DISTRIBUTOR OPERATOR eGFR >60 >60 10/30/2022 [facility] DEPT PAT H AND mL/min 6:07 AM LAB MEDICINE DISTRIBUTOR OPERATOR Comment: eGFR calculated using the CKD-EPIcr_R equation Anatomical Location / Laterality Collection Method / Volume Eva ection Time Received Time Specimen (Source) BLOOD / Unknown 10/30/2022 4:21 AM DISTRIBUTOR OPERATOR 10/30/20 4:22 AM DISTRIBUTOR OPERATOR Chary Smith MD LABORATORY ORDERABLES City/State/ZIP Code Phone Number Performing [place] [address] [facility] DEPT PATH AND [address] [facility] LAB MEDICINE * (ABNORMAL) CBC AND DIFF (10/30/2022 4:21 AM DISTRIBUTOR OPERATOR) Pathologist Signature Component Value Ref Test Method Analysis Performed A t Range Time White Blood Cells 7.5 4.5 - 10/30/2022 [facility] PT PATH AND 11.0 5:42 AM LAB MEDICINE K/UL DISTRIBUTOR OPERATOR RBC 3.71 (L) 4.4 - 10/30/2022 [facility] DEPT PAT H AND 5.5 M/UL 5:42 AM LAB MEDICINE DISTRIBUTOR OPERATOR Hemoglobin 12.6 (L) 13.5 - 10/30/2022 [facility] DEPT PAT H AND 16.5 5:42 AM LAB MEDICINE GM/DL DISTRIBUTOR OPERATOR Hematocrit 38.0 (L) 40 - 50 10/30/2022 [facility] PAT H AND % 5:42 AM LAB MEDICINE DISTRIBUTOR OPERATOR MCV 102.3 (H) 80 - 100 10/30/2022 [facility] DEPT PAT H AND FL 5:42 AM LAB MEDICINE DISTRIBUTOR OPERATOR MCH 34.0 26 - 34 10/30/2022 [facility] DEPT PAT H AND PG 5:42 AM LAB MEDICINE DISTRIBUTOR OPERATOR MCHC 33.2 32.0 - 10/30/2022 [facility] DEPT PAT H AND 36.0 5:42 AM LAB MEDICINE G/DL DISTRIBUTOR OPERATOR RDW 14.8 11 - 15 10/30/2022 [facility] DEPT PAT H AND % 5:42 AM LAB MEDICINE DISTRIBUTOR OPERATOR Platelet Count 138 (L) 150 - 10/30/2022 [facility] DEPT PATH AND 400 K/UL 5:42 AM LAB MEDICINE DISTRIBUTOR OPERATOR MPV 9.6 7 - 11 10/30/2022 [facility] DEPT PAT H AND FL 5:42 AM LAB MEDICINE DISTRIBUTOR OPERATOR Neutrophils 85 (H) 41 - 77 10/30/2022 [facility] DEPT PAT H AND % 5:42 AM LAB MEDICINE DISTRIBUTOR OPERATOR Lymphocytes 5 (L) 24 - 44 10/30/2022 [facility] DEPT PAT H AND % 5:42 AM LAB MEDICINE DISTRIBUTOR OPERATOR Monocytes 7 4 - 12 % 10/30/2022 [facility] DEPT PAT H AND 5:42 AM LAB MEDICINE DISTRIBUTOR OPERATOR Eosinophils 2 0 - 5 % 10/30/2022 [facility] DEPT PAT H AND 5:42 AM LAB MEDICINE DISTRIBUTOR OPERATOR Basophils 1 0 - 2 % 10/30/2022 [facility] DEPT PAT H AND 5:42 AM LAB MEDICINE DISTRIBUTOR OPERATOR Absolute Neutrophil 6.40 1.8 - 10/30/2022 [facility] DEPT PATH AND Count 7.0 K/UL 5:42 AM LAB MEDICINE DISTRIBUTOR OPERATOR Absolute Lymph Count 0.40 (L) 1.0 - 10/30/2022 [facility] DEPT PATH AND 4.8 K/UL 5:42 AM LAB MEDICINE DISTRIBUTOR OPERATOR Absolute Monocyte 0.60 0 - 0.80 10/30/2022 [facility] DE PT PATH AND Count K/UL 5:42 AM LAB MEDICINE DISTRIBUTOR OPERATOR Absolute Eosinophil 0.10 0 - 0.45 10/30/2022 [facility] DEPT PATH AND Count K/UL 5:42 AM LAB MEDICINE DISTRIBUTOR OPERATOR Absolute Basophil 0.10 0 - 0.20 10/30/2022 [facility] DE PT PATH AND Count K/UL 5:42 AM LAB MEDICINE DISTRIBUTOR OPERATOR Anatomical Location / Laterality Collection Method / Volume Eva ection Time Received Time Specimen (Source) BLOOD / Unknown 10/30/2022 4:21 AM DISTRIBUTOR OPERATOR 10/30/20 4:22 AM DISTRIBUTOR OPERATOR Chary Smith MD LABORATORY ORDERABLES City/State/ZIP Code Phone Number Performing [place] [address] [facility] DEPT PATH AND [address] [facility] MEDICINE * ANSELMO W/O CONTRAST (10/29/2022 3:47 PM DISTRIBUTOR OPERATOR) Pathologist Signature Component Value Ref Test Method Analysis Performed A t Range Time AV regurgitation 590 ms OTHER OUTSIDE LAB pressure 1/2 time LVOT peak VTI 41.90 cm OTHER OUTSIDE L AB MV mean gradient 4.00 mmHg OTHER OUTSIDE LAB MV VTI 48.30 cm OTHER OUTSIDE L AB BSA 1.66 m2 OTHER OUTSIDE L AB Cardiology Mason Epiq OTHER OUTSIDE LAB Ultrasound Machine CV ECHO PV SUPPORT ARMANDO Zimmerman OTHER OUTSIDE LAB STAFF ECHO EF 65 % OTHER OUTSIDE L AB MV valve area P1/2 1.59 cm2 OTHER OUTSI DE LAB , with a mean 13 mmHg OTHER OUTSIDE L AB gradient of AV peak velocity 2.6 m/s OTHER OUTSIDE LAB Ao VTI 59.0 cm OTHER OUTSIDE L AB and a peak gradient 28 mmHg OTHER OUTS [facility] LAB of MV stenosis pressure 138 ms OTHER OUT SIDE LAB 1/2 time Aorta AT 95.00 ms OTHER OUTSIDE L AB Modality Anatomical Region Laterality Ultrasound Anatomical Location / Laterality Collection Method / Volume Eva ection Time Received Time Specimen (Source) Narrative 10/29/2022 5:34 PM DISTRIBUTOR OPERATOR ANSELMO: 1. There was no thrombus visualized in t he left atrial appendage utilizing multiple views and color flow Doppler 2. No interatrial shunting by color-flow or agitated saline contrast. There was rare, late (>5 beats) agitated saline contrast seen in the left atrium which is most suggestive of a pulmonary source of shunting. 3. Qualitatively normal LV size and syst olic function, EF ~ 60-65 % 4. Qualitatively normal RV size and syst olic function 5. Mildly dilated left atrium, normal si ze right atrium. 6. 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 No evidence of valvular stenosis with thin leaflets with normal leaflet excursion (peak velocity = 2.6 m/s, mean gradient = 13 mmHg, AT =95 ms). There is mild to moderate paravalvular regurgitation at the 12 to 1 o'clock position. No transvalvular regurgitation. 7. There is moderate mitral annular calc ification with mild mitral stenosis (mean gradient of 4 mmHg at 63 bpm, MVA = 1.59 cm). There is mild-moderate mitral regurgitation 8. Mild to moderate tricuspid regurgitat ion. 9. Moderate layered atheromatous plaque present in the descending aorta 10. No pericardial effusion. Compared with the prior surface echo on 10-25-2022, there has been no significant interval changes when accounting for the differences in imaging technique and Doppler angles. The mitral and aortic valves are better interrogated on today's exam. Left Ventricle The left ventricular size is normal. The left ventricular systolic function is normal. The visually estimated ejection fraction is 65%. There are no segmental wall motion abnormalities. Right Ventricle The right ventricle is probably normal in size. The right ventricular systolic function is probably normal. Left Atrium Mildly dilated. There is no interatrial shunting by color flow Doppler and saline contrast studies. There were rare late (>5 beats) agitated saline contrast bubble seen in the left atrium which is more suggestive of a pulmonary source of shunting. No thrombus present. Normal left superior, left inferior, right superior and right inferior pulmonary vein connections. Normal pulmonary vein flow. Right Atrium Normal size. IVC/SVC Normal cavoatrial connections. Mitral Valve Non-specific thickening. Mild stenosis. Mean gradient across the valve 4 mmHg at 63 bpm. Mild to moderate regurgitation. There is moderate mitral annular calcification. Tricuspid Valve Normal valve structure. No stenosis. Mild to moderate regurgitation. Aortic Valve There is a well seated bioprosthetic aortic valve. 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 The prosthetic valve is abnormal. The prosthetic valve has the following abnormalities: paravalvular leak. There is mild to moderate paravalvular leak at the 12 to 1 o'clock position. No stenosis. PRADIP leaflets appear thin with no restriction of motion. Peak velocity = 2.6 m/s, mean gradient = 13 mmHg, AT = 95 ms. Mild to moderate regurgitation. PHT = 590 ms. Pericardium No pericardial effusion. Pulmonary Normal valve structure. No stenosis. Mild regurgitation. Aorta Plaque present in the descending aorta. The plaque is moderate size and layered. Portillo March MD ECHO ORDERABLES * (ABNORMAL) BASIC METABOLIC PANEL (10/29/2022 3:57 AM DISTRIBUTOR OPERATOR) Pathologist Signature Component Value Ref Test Method Analysis Performed A t Range Time Sodium 141 137 - 10/29/2022 [facility] DEPT PAT H AND 147 5:15 AM LAB MEDICINE MMOL/L DISTRIBUTOR OPERATOR Potassium 3.9 3.5 - 10/29/2022 [facility] DEPT PAT H AND 5.1 5:15 AM LAB MEDICINE MMOL/L DISTRIBUTOR OPERATOR Chloride 106 98 - 110 10/29/2022 [facility] DEPT PAT H AND MMOL/L 5:15 AM LAB MEDICINE DISTRIBUTOR OPERATOR CO2 24 21 - 30 10/29/2022 [facility] DEPT PAT H AND MMOL/L 5:15 AM LAB MEDICINE DISTRIBUTOR OPERATOR Anion Gap 11 3 - 12 10/29/2022 [facility] DEPT PAT H AND 5:15 AM LAB MEDICINE DISTRIBUTOR OPERATOR Glucose 90 70 - 100 10/29/2022 [facility] DEPT PAT H AND MG/DL 5:15 AM LAB MEDICINE DISTRIBUTOR OPERATOR Blood Urea Nitrogen 26 (H) 7 - 25 10/29/2022 [facility] DEPT PATH AND MG/DL 5:15 AM LAB MEDICINE DISTRIBUTOR OPERATOR Creatinine 1.04 0.4 - 10/29/2022 [facility] DEPT PAT H AND 1.24 5:15 AM LAB MEDICINE MG/DL DISTRIBUTOR OPERATOR Calcium 8.7 8.5 - 10/29/2022 [facility] DEPT PAT H AND 10.6 5:15 AM LAB MEDICINE MG/DL DISTRIBUTOR OPERATOR eGFR >60 >60 10/29/2022 [facility] DEPT PAT H AND mL/min 5:15 AM LAB MEDICINE DISTRIBUTOR OPERATOR Comment: eGFR calculated using the [id number] equation Anatomical Location / Laterality Collection Method / Volume Eva ection Time Received Time Specimen (Source) BLOOD / Unknown 10/29/2022 3:57 AM DISTRIBUTOR OPERATOR 10/29/20 3:58 AM DISTRIBUTOR OPERATOR Chary Smith MD LABORATORY ORDERABLES City/State/ZIP Code Phone Number Performing [place] [address] [facility] DEPT PATH AND [address] [facility] LAB MEDICINE * (ABNORMAL) CBC AND DIFF (10/29/2022 3:57 AM DISTRIBUTOR OPERATOR) Pathologist Signature Component Value Ref Test Method Analysis Performed A t Range Time White Blood Cells 4.5 4.5 - 10/29/2022 [facility] PT PATH AND 11.0 4:51 AM LAB MEDICINE K/UL DISTRIBUTOR OPERATOR RBC 3.31 (L) 4.4 - 10/29/2022 [facility] DEPT PAT H AND 5.5 M/UL 4:51 AM LAB MEDICINE DISTRIBUTOR OPERATOR Hemoglobin 11.3 (L) 13.5 - 10/29/2022 [facility] DEPT PAT H AND 16.5 4:51 AM LAB MEDICINE GM/DL DISTRIBUTOR OPERATOR Hematocrit 33.2 (L) 40 - 50 10/29/2022 [facility] DEPT PAT H AND % 4:51 AM LAB MEDICINE DISTRIBUTOR OPERATOR MCV 100.3 (H) 80 - 100 10/29/2022 [facility] DEPT PAT H AND FL 4:51 AM LAB MEDICINE DISTRIBUTOR OPERATOR MCH 34.1 (H) 26 - 34 10/29/2022 [facility] DEPT PAT H AND PG 4:51 AM LAB MEDICINE DISTRIBUTOR OPERATOR MCHC 34.0 32.0 - 10/29/2022 [facility] DEPT PAT H AND 36.0 4:51 AM LAB MEDICINE G/DL DISTRIBUTOR OPERATOR RDW 14.4 11 - 15 10/29/2022 [facility] DEPT PAT H AND % 4:51 AM LAB MEDICINE DISTRIBUTOR OPERATOR Platelet Count 107 (L) 150 - 10/29/2022 [facility] DEPT PATH AND 400 K/UL 4:51 AM LAB MEDICINE DISTRIBUTOR OPERATOR MPV 9.5 7 - 11 10/29/2022 [facility] DEPT PAT H AND FL 4:51 AM LAB MEDICINE DISTRIBUTOR OPERATOR Neutrophils 71 41 - 77 10/29/2022 [facility] DEPT PAT H AND % 4:51 AM LAB MEDICINE DISTRIBUTOR OPERATOR Lymphocytes 12 (L) 24 - 44 10/29/2022 [facility] DEPT PAT H AND % 4:51 AM LAB MEDICINE DISTRIBUTOR OPERATOR Monocytes 16 (H) 4 - 12 % 10/29/2022 [facility] DEPT PAT H AND 4:51 AM LAB MEDICINE DISTRIBUTOR OPERATOR Eosinophils 0 0 - 5 % 10/29/2022 [facility] DEPT PAT H AND 4:51 AM LAB MEDICINE DISTRIBUTOR OPERATOR Basophils 1 0 - 2 % 10/29/2022 [facility] DEPT PAT H AND 4:51 AM LAB MEDICINE DISTRIBUTOR OPERATOR Absolute Neutrophil 3.17 1.8 - 10/29/2022 [facility] DEPT PATH AND Count 7.0 K/UL 4:51 AM LAB MEDICINE DISTRIBUTOR OPERATOR Absolute Lymph Count 0.56 (L) 1.0 - 10/29/2022 [facility] DEPT PATH AND 4.8 K/UL 4:51 AM LAB MEDICINE DISTRIBUTOR OPERATOR Absolute Monocyte 0.74 0 - 0.80 10/29/2022 [facility] DE PT PATH AND Count K/UL 4:51 AM LAB MEDICINE DISTRIBUTOR OPERATOR Absolute Eosinophil 0.02 0 - 0.45 10/29/2022 [facility] DEPT PATH AND Count K/UL 4:51 AM LAB MEDICINE DISTRIBUTOR OPERATOR Absolute Basophil 0.02 0 - 0.20 10/29/2022 [facility] PT PATH AND Count K/UL 4:51 AM LAB MEDICINE DISTRIBUTOR OPERATOR Anatomical Location / Laterality Collection Method / Volume Eva ection Time Received Time Specimen (Source) BLOOD / Unknown 10/29/2022 3:57 AM DISTRIBUTOR OPERATOR 10/29/20 3:58 AM DISTRIBUTOR OPERATOR Chary Smith MD LABORATORY ORDERABLES City/State/ZIP Code Phone Number Performing [place] [address] [facility] DEPT PATH AND [address] LAB MEDICINE * IR CEREBRAL ANEURYSM EMBOLIZATION (10/28/2022 9:46 AM DISTRIBUTOR OPERATOR) Modality Anatomical Region Laterality X-Ray Angiography Anatomical Location / Laterality Collection Method / Volume Eva ection Time Received Time Specimen (Source) 10/29/2022 7:22 PM DISTRIBUTOR OPERATOR Narrative 10/29/2022 7:37 PM DISTRIBUTOR OPERATOR Date of Service: 10/28/2022 Surgeon: Portillo March MD Principal Product Manager: None Preoperative Diagnosis: 1. 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 Successful right middle meningeal art courtney embolization with embosphere particles Operation: 1. Ulnar access Cervical/Cerebral Angiog juan 2. Right Middle meningeal artery emboliz ation 3. Ultrasound guided access of the right ulnar artery Anesthesia: General Complications: None Estimated Blood Loss: Less than 15 mL Total Contrast: 60 cc of Omnipaque-300 Radiation Dose: 1808 mGy Indications: SCOT BELL is a 82 years Male who presents with a complicated history where he was initially being evaluated for focused ultrasound for a chronic tremor and was undergoing evaluation for this and found to have an incidental right subdural hematoma. He was actively being evaluated and screened for a middle meningeal artery embolization study. 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 This lead to further evaluation which then led to the diagnosis of a new right upper quadrant lobe mass. Given these changes and the likely need for anticoagulation in the course of his treatment and some evidence of some acute component to the chronic subdural we discussed performing a middle meningeal artery embolization as to potentially increased the likelihood of resolution of the subdural collection or at least decrease the chance for any worsening of acute bleeding within this area while the patient was placed on anticoagulation earlier. This was all discussed with the patient and his daughter and there are in agreement with the procedure. Selected Vessels: 1. Right ulnar artery 2. Right common carotid artery 3. Right internal carotid artery 4. Right external carotid artery 5. Right middle meningeal artery Access Site Description: Potential access sites are evaluated with ultrasound. The patency of the selected access site is documented. Realtime ultrasound of the needle placement. With a permanent image of the needle placement. Procedure: Following explanation of the benefits, risks and alternatives for the procedure, informed consent was obtained from the patient and daughter. The risks including but not limited to stroke, intracranial hemorrhage, vascular injury to the cervical or femoral vessels and groin hematoma were discussed with the patient and daughter. The patient was brought to the angiogram suite and positioned supine on the angio table. A time-out was performed. ?Both groins and right radial sites were prepped in the usual sterile fashion using Chloroprep, and sterilely draped. The right arm was positioned in modest supination, support along the patient's right side, with the wrist in mild extension to optimize access to the radial artery. The access site for the right ulnar artery was located by palpation. Ultrasound of the ulnar artery was performed. Under ultrasound guidance, the ulnar artery was entered with a single wall puncture. A microwire was placed under direct fluoroscopic visualization. The Seldinger technique was used to place a Terumo 6 B[place]udian slender sheath in the vessel. All bubbles were meticulously withdrawn and the sheath was carefully flushed and attached to continuous heparinized saline flush system. Antispasmodic agents verapamil 2.5 mg and nitroglycerin 200 mcg were combined in a 10 cc syringe. Blood was withdrawn into the syringe and the mixture was infused through the sheath slowly over 1 minute. 3000 units of heparin were given IV. A 5 B[place]udian Lundy 2 select diagnostic catheter was introduced. The system was advanced into the right upper extremity to the subclavian artery where it was meticulously flushed. Throughout the remainder of the study continuous attention was paid to the catheter system to ensure and air free connection throughout the course of the procedure. The Lundy catheter was taken and reformed into the Lundy shape within the aortic arch. Utilizing a combination of roadmap, guidewire, and direct catheter access techniques, the Lundy catheter was used to perform the remainder of the diagnostic angiography of the above-named vessels. Under roadmap guidance the external carotid artery was selected with the Glidewire and diagnostic catheter. This allowed advancement of the 5 B[place]udian diagnostic catheter into the distal external carotid artery at the bifurcation of the internal maxillary and superficial temporal arteries. After obtaining working projections and roadmap imaging of the ECA, a Headway 17 microcatheter and 014 Andrew microwire were coaxially advanced within the diagnostic catheter and used to selectively catheterize the middle meningeal artery, selecting a proximal portion of the frontal branch. Once at an appropriately distal location, the microwire was removed. At this time, 100-300 embosphere's were prepped with 50% contrast and injected under blanked roadmap into the frontal branch of the middle meningeal artery. After good penetration the catheter was removed. Whole head post intervention arteriograms were obtained from the ECA and ICA. The TR radial arm band was applied and inflated in the sheath withdrawn. Patent hemostasis was then achieved by standard technique. The patient tolerated the procedure well and was transported from the angiography suite to the recovery area in unchanged neurologic condition. FINDINGS: RIGHT ULNAR ARTERY The right ulnar artery is large in caliber with normal filling of the brachial artery. 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 RIGHT COMMON CAROTID ARTERY The origins of the right internal and external carotid arteries are widely patent without evidence of ulceration or stenosis. RIGHT INTERNAL CAROTID ARTERY There is normal filling of the distal cervical, petrous, cavernous, supraclinoid segments of the internal carotid artery. There is a small posterior communicating artery. There is essentially isolated circulation of the right middle cerebral artery territory without any filling into a right A1 segment. There is evidence of compression on the convexity of the middle meningeal artery branches. There is otherwise normal filling into the middle cerebral artery territory. There is no evidence of aneurysms, vascular malformations, arteriovenous shunting, stenosis or vasospasm. No significant abnormalities are seen in the capillary and venous phases. The venous phase demonstrates patent transverse and sigmoid sinuses. There is no evidence of anastomotic connections from the ophthalmic to middle meningeal artery proper. There is a fall seen branch arising from the blood pool progressively ophthalmic without evidence of a significant communication to the remainder of the middle meningeal artery. Following embolization the post intervention angiogram shows evidence of continued filling into the right middle cerebral artery territory without changes in filling pattern. RIGHT EXTERNAL CAROTID ARTERY The visualized portions of the external carotid artery and its branches are normal without evidence of ulceration or stenosis. There is no evidence of arteriovenous shunting. The venous phase is normal. RIGHT MIDDLE MENINGEAL ARTERY Appropriate opacification of the middle meningeal artery and its branches. No evidence of arteriovenous shunting. The posterior branch of the middle meningeal artery is diminutive in size. There was good penetration of the embosphere particles into the frontal branch of the middle meningeal artery with minimal filling of that branch following embolization.. INTERPRETATION: 1. 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 2. No immediate technical or clinical complications. Finalized by Portillo March M.D. on 10/29/2022 7:37 PM. Dictated by Potrillo March M.D. on 10/29/2022 7:22 PM. Procedure Note Portillo March MD - 10/29/2022 Date of Service: 10/28/2022 Surgeon: Portillo March MD Principal Product Manager: None Preoperative Diagnosis: 1. 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 Successful right middle meningeal art courtney embolization with embosphere particles Operation: 1. Ulnar access Cervical/Cerebral Angiog juan 2. Right Middle meningeal artery emboliz ation 3. Ultrasound guided access of the right ulnar artery Anesthesia: General Complications: None Estimated Blood Loss: Less than 15 mL Total Contrast: 60 cc of Omnipaque-300 Radiation Dose: 1808 mGy Indications: SCOT BELL is a 82 years Male who presents with a complicated history where he was initially being evaluated for focused ultrasound for a chronic tremor and was undergoing evaluation for this and found to have an incidental right subdural hematoma. He was actively being evaluated and screened for a middle meningeal artery embolization study. 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 This lead to further evaluation which then led to the diagnosis of a new right upper quadrant lobe mass. Given these changes and the likely need for anticoagulation in the course of his treatment and some evidence of some acute component to the chronic subdural we discussed performing a middle meningeal artery embolization as to potentially increased the likelihood of resolution of the subdural collection or at least decrease the chance for any worsening of acute bleeding within this area while the patient was placed on anticoagulation earlier. This was all discussed with the patient and his daughter and there are in agreement with the procedure. Selected Vessels: 1. Right ulnar artery 2. Right common carotid artery 3. Right internal carotid artery 4. Right external carotid artery 5. Right middle meningeal artery Access Site Description: Potential access sites are evaluated with ultrasound. The patency of the selected access site is documented. Realtime ultrasound of the needle placement. With a permanent image of the needle placement. Procedure: Following explanation of the benefits, risks and alternatives for the procedure, informed consent was obtained from the patient and daughter. The risks including but not limited to stroke, intracranial hemorrhage, vascular injury to the cervical or femoral vessels and groin hematoma were discussed with the patient and daughter. The patient was brought to the angiogram suite and positioned supine on the angio table. A time-out was performed. ?Both groins and right radial sites were prepped in the usual sterile fashion using Chloroprep, and sterilely draped. The right arm was positioned in modest supination, support along the patient's right side, with the wrist in mild extension to optimize access to the radial artery. The access site for the right ulnar artery was located by palpation. Ultrasound of the ulnar artery was performed. Under ultrasound guidance, the ulnar artery was entered with a single wall puncture. A microwire was placed under direct fluoroscopic visualization. The Seldinger technique was used to place a Terumo 6 B[place]udian slender sheath in the vessel. All bubbles were meticulously withdrawn and the sheath was carefully flushed and attached to continuous heparinized saline flush system. Antispasmodic agents verapamil 2.5 mg and nitroglycerin 200 mcg were combined in a 10 cc syringe. Blood was withdrawn into the syringe and the mixture was infused through the sheath slowly over 1 minute. 3000 units of heparin were given IV. A 5 B[place] Caspida 2 select diagnostic catheter was introduced. The system was advanced into the right upper extremity to the subclavian artery where it was meticulously flushed. Throughout the remainder of the study continuous attention was paid to the catheter system to ensure and air free connection throughout the course of the procedure. The Lundy catheter was taken and reformed into the Lundy shape within the aortic arch. Utilizing a combination of roadmap, guidewire, and direct catheter access techniques, the Lundy catheter was used to perform the remainder of the diagnostic angiography of the above-named vess els. Under roadmap guidance the external carotid artery was selected with the Glidewire and diagnostic catheter. This allowed advancement of the 5 Bermudian diagnostic catheter into the distal external carotid artery at the bifurcation of the internal maxillary and superficial temporal arteries. After obtaining working projections and roadmap imaging of the ECA, a Headway 17 microcatheter and 014 Andrew microwire were coaxially advanced within the diagnostic catheter and used to selectively catheterize the middle meningeal artery, selecting a proximal portion of the frontal branch. Once at an appropriately distal location, the microwire was removed. At this time, 100-300 embosphere's were prepped with 50% contrast and injected under blanked roadmap into the frontal branch of the middle meningeal artery. After good penetration the catheter was removed. Whole head post intervention arteriograms were obtained from the ECA and ICA. The TR radial arm band was applied and inflated in the sheath withdrawn. Patent hemostasis was then achieved by standard technique. The patient tolerated the procedure well and was transported from the angiography suite to the recovery area in unchanged neurologic condition. FINDINGS: RIGHT ULNAR ARTERY The right ulnar artery is large in caliber with normal filling of the brachial artery. 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 RIGHT COMMON CAROTID ARTERY The origins of the right internal and external carotid arteries are widely patent without evidence of ulceration or stenosis. RIGHT INTERNAL CAROTID ARTERY There is normal filling of the distal cervical, petrous, cavernous, supraclinoid segments of the internal carotid artery. There is a small posterior communicating artery. There is essentially isolated circulation of the right middle cerebral artery territory without any filling into a right A1 segment. There is evidence of compression on the convexity of the middle meningeal artery branches. There is otherwise normal filling into the middle cerebral artery territory. There is no evidence of aneurysms, vascular malformations, arteriovenous shunting, stenosis or vasospasm. No significant abnormalities are seen in the capillary and venous phases. The venous phase demonstrates patent transverse and sigmoid sinuses. There is no evidence of anastomotic connections from the ophthalmic to middle meningeal artery proper. There is a fall seen branch arising from the blood pool progressively ophthalmic without evidence of a significant communication to the remainder of the middle meningeal artery. Following embolization the post intervention angiogram shows evidence of continued filling into the right middle cerebral artery territory without changes in filling pattern. RIGHT EXTERNAL CAROTID ARTERY The visualized portions of the external carotid artery and its branches are normal without evidence of ulceration or stenosis. There is no evidence of arteriovenous shunting. The venous phase is normal. RIGHT MIDDLE MENINGEAL ARTERY Appropriate opacification of the middle meningeal artery and its branches. No evidence of arteriovenous shunting. The posterior branch of the middle meningeal artery is diminutive in size. There was good penetration of the embosphere particles into the frontal branch of the middle meningeal artery with minimal filling of that branch following embolization.. INTERPRETATION: 1. 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 2. No immediate technical or clinical c omplications. Finalized by Portillo March M.D. on 10/29/2022 7:37 PM. Dictated by Portillo March M.D. on 10/29/2022 7:22 PM. Isamar Newell IR ORDERABLES WINDOW ASSEMBLER-REAL ESTATE SUBAGENT * TELEMETRY STRIPS-SCAN (10/28/2022 12:00 AM DISTRIBUTOR OPERATOR) Narrative 10/28/2022 12:00 AM DISTRIBUTOR OPERATOR Ordered by an unspecified provider. Scanned Document PROCEDURE DUMMY ORDERS * TELEMETRY STRIPS-SCAN (10/28/2022 12:00 AM DISTRIBUTOR OPERATOR) Narrative 10/28/2022 12:00 AM DISTRIBUTOR OPERATOR Ordered by an unspecified provider. Scanned Document PROCEDURE DUMMY ORDERS * TELEMETRY STRIPS-SCAN (10/28/2022 12:00 AM DISTRIBUTOR OPERATOR) Narrative 10/28/2022 12:00 AM DISTRIBUTOR OPERATOR Ordered by an unspecified provider. Scanned Document PROCEDURE DUMMY ORDERS * TELEMETRY STRIPS-SCAN (10/28/2022 12:00 AM DISTRIBUTOR OPERATOR) Narrative 10/28/2022 12:00 AM DISTRIBUTOR OPERATOR Ordered by an unspecified provider. Scanned Document PROCEDURE DUMMY ORDERS * TELEMETRY STRIPS-SCAN (10/28/2022 12:00 AM DISTRIBUTOR OPERATOR) Narrative 10/28/2022 12:00 AM DISTRIBUTOR OPERATOR Ordered by an unspecified provider. Scanned Document PROCEDURE DUMMY ORDERS * TELEMETRY STRIPS-SCAN (10/28/2022 12:00 AM DISTRIBUTOR OPERATOR) Narrative 10/28/2022 12:00 AM DISTRIBUTOR OPERATOR Ordered by an unspecified provider. Scanned Document PROCEDURE DUMMY ORDERS * TELEMETRY STRIPS-SCAN (10/28/2022 12:00 AM DISTRIBUTOR OPERATOR) Narrative 10/28/2022 12:00 AM DISTRIBUTOR OPERATOR Ordered by an unspecified provider. Scanned Document PROCEDURE DUMMY ORDERS * TELEMETRY STRIPS-SCAN (10/28/2022 12:00 AM DISTRIBUTOR OPERATOR) Narrative 10/28/2022 12:00 AM DISTRIBUTOR OPERATOR Ordered by an unspecified provider. Scanned Document PROCEDURE DUMMY ORDERS * TELEMETRY STRIPS-SCAN (10/28/2022 12:00 AM DISTRIBUTOR OPERATOR) Narrative 10/28/2022 12:00 AM DISTRIBUTOR OPERATOR Ordered by an unspecified provider. Scanned Document PROCEDURE DUMMY ORDERS * TELEMETRY STRIPS-SCAN (10/28/2022 12:00 AM DISTRIBUTOR OPERATOR) Narrative 10/28/2022 12:00 AM DISTRIBUTOR OPERATOR Ordered by an unspecified provider. Scanned Document PROCEDURE DUMMY ORDERS * TELEMETRY STRIPS-SCAN (10/28/2022 12:00 AM DISTRIBUTOR OPERATOR) Narrative 10/28/2022 12:00 AM DISTRIBUTOR OPERATOR Ordered by an unspecified provider. Scanned Document PROCEDURE DUMMY ORDERS * TELEMETRY STRIPS-SCAN (10/28/2022 12:00 AM DISTRIBUTOR OPERATOR) Narrative 10/28/2022 12:00 AM DISTRIBUTOR OPERATOR Ordered by an unspecified provider. Scanned Document PROCEDURE DUMMY ORDERS * TELEMETRY STRIPS-SCAN (10/28/2022 12:00 AM DISTRIBUTOR OPERATOR) Narrative 10/28/2022 12:00 AM DISTRIBUTOR OPERATOR Ordered by an unspecified provider. Scanned Document PROCEDURE DUMMY ORDERS * TELEMETRY STRIPS-SCAN (10/28/2022 12:00 AM DISTRIBUTOR OPERATOR) Narrative 10/28/2022 12:00 AM DISTRIBUTOR OPERATOR Ordered by an unspecified provider. Scanned Document PROCEDURE DUMMY ORDERS * TELEMETRY STRIPS-SCAN (10/28/2022 12:00 AM DISTRIBUTOR OPERATOR) Narrative 10/28/2022 12:00 AM DISTRIBUTOR OPERATOR Ordered by an unspecified provider. Scanned Document PROCEDURE DUMMY ORDERS * TELEMETRY STRIPS-SCAN (10/28/2022 12:00 AM DISTRIBUTOR OPERATOR) Narrative 10/28/2022 12:00 AM DISTRIBUTOR OPERATOR Ordered by an unspecified provider. Scanned Document PROCEDURE DUMMY ORDERS * TELEMETRY STRIPS-SCAN (10/28/2022 12:00 AM DISTRIBUTOR OPERATOR) Narrative 10/28/2022 12:00 AM DISTRIBUTOR OPERATOR Ordered by an unspecified provider. Scanned Document PROCEDURE DUMMY ORDERS * TELEMETRY STRIPS-SCAN (10/28/2022 12:00 AM DISTRIBUTOR OPERATOR) Narrative 10/28/2022 12:00 AM DISTRIBUTOR OPERATOR Ordered by an unspecified provider. Scanned Document PROCEDURE DUMMY ORDERS * TELEMETRY STRIPS-SCAN (10/28/2022 12:00 AM DISTRIBUTOR OPERATOR) Narrative 10/28/2022 12:00 AM DISTRIBUTOR OPERATOR Ordered by an unspecified provider. Scanned Document PROCEDURE DUMMY ORDERS * TELEMETRY STRIPS-SCAN (10/28/2022 12:00 AM DISTRIBUTOR OPERATOR) Narrative 10/28/2022 12:00 AM DISTRIBUTOR OPERATOR Ordered by an unspecified provider. Scanned Document PROCEDURE DUMMY ORDERS * TELEMETRY STRIPS-SCAN (10/28/2022 12:00 AM DISTRIBUTOR OPERATOR) Narrative 10/28/2022 12:00 AM DISTRIBUTOR OPERATOR Ordered by an unspecified provider. Scanned Document PROCEDURE DUMMY ORDERS * TELEMETRY STRIPS-SCAN (10/28/2022 12:00 AM DISTRIBUTOR OPERATOR) Narrative 10/28/2022 12:00 AM DISTRIBUTOR OPERATOR Ordered by an unspecified provider. Scanned Document PROCEDURE DUMMY ORDERS * TELEMETRY STRIPS-SCAN (10/28/2022 12:00 AM DISTRIBUTOR OPERATOR) Narrative 10/28/2022 12:00 AM DISTRIBUTOR OPERATOR Ordered by an unspecified provider. Scanned Document PROCEDURE DUMMY ORDERS * TELEMETRY STRIPS-SCAN (10/28/2022 12:00 AM DISTRIBUTOR OPERATOR) Narrative 10/28/2022 12:00 AM DISTRIBUTOR OPERATOR Ordered by an unspecified provider. Scanned Document PROCEDURE DUMMY ORDERS * (ABNORMAL) CBC (10/27/2022 8:55 PM DISTRIBUTOR OPERATOR) Pathologist Signature Component Value Ref Test Method Analysis Performed A t Range Time White Blood Cells 5.9 4.5 - 10/27/2022 [facility] DE PT PATH AND 11.0 9:28 PM LAB MEDICINE K/UL DISTRIBUTOR OPERATOR RBC 3.76 (L) 4.4 - 10/27/2022 [facility] DEPT PAT H AND 5.5 M/UL 9:28 PM LAB MEDICINE DISTRIBUTOR OPERATOR Hemoglobin 12.7 (L) 13.5 - 10/27/2022 [facility] DEPT PAT H AND 16.5 9:28 PM LAB MEDICINE GM/DL DISTRIBUTOR OPERATOR Hematocrit 37.0 (L) 40 - 50 10/27/2022 [facility] DEPT PAT H AND % 9:28 PM LAB MEDICINE DISTRIBUTOR OPERATOR MCV 98.5 80 - 100 10/27/2022 [facility] DEPT PAT H AND FL 9:28 PM LAB MEDICINE DISTRIBUTOR OPERATOR MCH 33.8 26 - 34 10/27/2022 [facility] DEPT PAT H AND PG 9:28 PM LAB MEDICINE DISTRIBUTOR OPERATOR MCHC 34.3 32.0 - 10/27/2022 [facility] DEPT PAT H AND 36.0 9:28 PM LAB MEDICINE G/DL DISTRIBUTOR OPERATOR RDW 14.4 11 - 15 10/27/2022 [facility] DEPT PAT H AND % 9:28 PM LAB MEDICINE DISTRIBUTOR OPERATOR Platelet Count 100 (L) 150 - 10/27/2022 [facility] DEPT PATH AND 400 K/UL 9:28 PM LAB MEDICINE DISTRIBUTOR OPERATOR MPV 9.1 7 - 11 10/27/2022 [facility] DEPT PAT H AND FL 9:28 PM LAB MEDICINE DISTRIBUTOR OPERATOR Anatomical Location / Laterality Collection Method / Volume Eva ection Time Received Time Specimen (Source) 10/27/2022 8:55 PM DISTRIBUTOR OPERATOR 10/27/20 9:05 PM DISTRIBUTOR OPERATOR Nehemias Blanchard MD LABORATORY ORDERABLES City/State/ZIP Code Phone Number Performing [place] [address] [facility] DEPT PATH AND [address] [facility] LAB MEDICINE * (ABNORMAL) BASIC METABOLIC PANEL (10/27/2022 8:55 PM DISTRIBUTOR OPERATOR) Pathologist Signature Component Value Ref Test Method Analysis Performed A t Range Time Sodium 139 137 - 10/27/2022 [facility] DEPT PAT H AND 147 9:51 PM LAB MEDICINE MMOL/L DISTRIBUTOR OPERATOR Potassium 3.9 3.5 - 10/27/2022 [facility] DEPT PAT H AND 5.1 9:51 PM LAB MEDICINE MMOL/L DISTRIBUTOR OPERATOR Chloride 102 98 - 110 10/27/2022 [facility] DEPT PAT H AND MMOL/L 9:51 PM LAB MEDICINE DISTRIBUTOR OPERATOR CO2 26 21 - 30 10/27/2022 [facility] DEPT PAT H AND MMOL/L 9:51 PM LAB MEDICINE DISTRIBUTOR OPERATOR Anion Gap 11 3 - 12 10/27/2022 [facility] DEPT PAT H AND 9:51 PM LAB MEDICINE DISTRIBUTOR OPERATOR Glucose 115 (H) 70 - 100 10/27/2022 [facility] DEPT PAT H AND MG/DL 9:51 PM LAB MEDICINE DISTRIBUTOR OPERATOR Blood Urea Nitrogen 26 (H) 7 - 25 10/27/2022 [facility] DEPT PATH AND MG/DL 9:51 PM LAB MEDICINE DISTRIBUTOR OPERATOR Creatinine 1.11 0.4 - 10/27/2022 [facility] DEPT PAT H AND 1.24 9:51 PM LAB MEDICINE MG/DL DISTRIBUTOR OPERATOR Calcium 8.7 8.5 - 10/27/2022 [facility] DEPT PAT H AND 10.6 9:51 PM LAB MEDICINE MG/DL DISTRIBUTOR OPERATOR eGFR >60 >60 10/27/2022 [facility] DEPT PAT H AND mL/min 9:51 PM LAB MEDICINE DISTRIBUTOR OPERATOR Comment: eGFR calculated using the CKD-EPIcr_R equation Anatomical Location / Laterality Collection Method / Volume Eva ection Time Received Time Specimen (Source) 10/27/2022 8:55 PM DISTRIBUTOR OPERATOR 10/27/20 22 9:05 PM DISTRIBUTOR OPERATOR Nehemias Blanchard MD LABORATORY ORDERABLES City/State/ZIP Code Phone Number Performing [place] [address] [facility] DEPT PATH AND [address] [facility]. LAB MEDICINE * (ABNORMAL) CBC (10/27/2022 7:58 PM DISTRIBUTOR OPERATOR) Pathologist Signature Component Value Ref Test Method Analysis Performed A t Range Time White Blood Cells 5.8 4.5 - 10/27/2022 [facility] DE PT PATH AND 11.0 9:03 PM LAB MEDICINE K/UL DISTRIBUTOR OPERATOR RBC 3.81 (L) 4.4 - 10/27/2022 [facility] DEPT PAT H AND 5.5 M/UL 9:03 PM LAB MEDICINE DISTRIBUTOR OPERATOR Hemoglobin 12.8 (L) 13.5 - 10/27/2022 [facility] DEPT PAT H AND 16.5 9:03 PM LAB MEDICINE GM/DL DISTRIBUTOR OPERATOR Hematocrit 38.1 (L) 40 - 50 10/27/2022 [facility] DEPT PAT H AND % 9:03 PM LAB MEDICINE DISTRIBUTOR OPERATOR MCV 100.0 80 - 100 10/27/2022 [facility] DEPT PAT H AND FL 9:03 PM LAB MEDICINE DISTRIBUTOR OPERATOR MCH 33.7 26 - 34 10/27/2022 [facility] DEPT PAT H AND PG 9:03 PM LAB MEDICINE DISTRIBUTOR OPERATOR MCHC 33.7 32.0 - 10/27/2022 [facility] DEPT PAT H AND 36.0 9:03 PM LAB MEDICINE G/DL DISTRIBUTOR OPERATOR RDW 14.3 11 - 15 10/27/2022 [facility] DEPT PAT H AND % 9:03 PM LAB MEDICINE DISTRIBUTOR OPERATOR Platelet Count 97 (L) 150 - 10/27/2022 [facility] DEPT PATH AND 400 K/UL 9:03 PM LAB MEDICINE DISTRIBUTOR OPERATOR MPV 9.3 7 - 11 10/27/2022 [facility] DEPT PAT H AND FL 9:03 PM LAB MEDICINE DISTRIBUTOR OPERATOR Anatomical Location / Laterality Collection Method / Volume Eva ection Time Received Time Specimen (Source) BLOOD / Unknown 10/27/2022 7:58 PM DISTRIBUTOR OPERATOR 12/18/20 22 8:50 PM DISTRIBUTOR OPERATOR Portillo March MD LABORATORY ORDERABLES City/State/ZIP Code Phone Number Performing [place] [address] [facility] PATH AND [address] [facility] MEDICINE * CT HEAD WO CONTRAST (10/27/2022 7:46 PM DISTRIBUTOR OPERATOR) Modality Anatomical Region Laterality Computed Tomography Head Anatomical Location / Laterality Collection Method / Volume Eva ection Time Received Time Specimen (Source) 10/27/2022 7:38 PM DISTRIBUTOR OPERATOR Impressions 10/27/2022 8:05 PM DISTRIBUTOR OPERATOR 1. No acute intracranial hemorrhage. 2. Redemonstration of a moderate sized subacute right GENERATOR ASSEMBLER territory infarct without evidence of significant hemorrhagic conversion. Associated localized right cerebral mass effect with stable asymmetric enlargement of the right lateral ventricular temporal horn. 3. Unchanged additional likely recent tiny right posterolateral cerebellar and small medial right frontal-cingulate infarcts. Several additional small recent bilateral cerebral and cerebellar infarcts are better seen on recent MRI from 2 days earlier. 4. Stable size of the right cerebral c onvexity mixed density subdural hematoma and associated intracranial mass effect with up to to 0.6 cm of leftward midline shift. 5. Stable mild patchy cerebral white m atter hypodensities, consistent with nonspecific white matter disease, with tiny chronic mild cerebellar infarcts. 6. 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 Dr. Luong discussed these findings with Dr. Rob by telephone at 7:48 PM on 10/27/2022. By my electronic signature, I attest that I have personally reviewed the images for this examination and formulated the interpretations and opinions expressed in this report Finalized by Eric Nava M.D. on 10/27/2022 8:05 PM. Dictated by Fernando Luong M.D. on 10/27/2022 7:38 PM. Narrative 10/27/2022 8:05 PM DISTRIBUTOR OPERATOR EXAM: CT HEAD HISTORY: Decreased consciousness. Stroke activation. TECHNIQUE: Multiple contiguous axial images were obtained of the brain without intravenous contrast. COMPARISON: CT and MRI head 10/25/2022. FINDINGS: Redemonstration of a moderate-sized, subacute right basal and mesial occipitotemporal GENERATOR ASSEMBLER territory infarct and a tiny recent right posterolateral cerebellar infarct, with additional tiny recent bilateral cerebellar infarcts better seen on prior MRI. There is stable associated right occipitotemporal mass effect with effacement of the right lateral ventricular temporal horn and likely associated minor entrapment anteriorly. There is no evidence of significant hemorrhagic conversion of infarct. Additional tiny recent left lateral periatrial infarct on MRI is not well seen by CT. Stable additional small, recent cortical infarct along the right mid cingulate sulcus. Additional tiny right precuneus parietal and bilateral occipital infarcts are better demonstrated on recent MRI. There has been no significant interval change in size of the lateral right cerebral convexity mixed attenuating subdural hematoma, currently measuring up to 1.2 cm in depth (coronal image 32). There is persistent associated intracranial mass effect with up to 0.6 cm of leftward midline shift and mild right cerebral sulcal effacement. No descending herniation. Prominent perivascular spaces are present within the inferior basal ganglia. There are mild underlying patchy cerebral white matter hypodensities, consistent with nonspecific white matter disease. Tiny chronic cerebellar infarcts, also better seen on prior MRI. Prior ocular was replacements. Paranasal sinuses and mastoid air cells are well-aerated. Calcified plaque in the carotid siphons and intracranial vertebral arteries bilaterally. Small geographic marrow lesion at the clivus is better seen on MRI. Procedure Note Eric Nava MD - 10/27/2022 EXAM: CT HEAD HISTORY: Decreased consciousness. Stroke activation. TECHNIQUE: Multiple contiguous axial images were obtained of the brain without intravenous contrast. COMPARISON: CT and MRI head 10/25/2022. FINDINGS: Redemonstration of a moderate-sized, subacute right basal and mesial occipitotemporal GENERATOR ASSEMBLER territory infarct and a tiny recent right posterolateral cerebellar infarct, with additional tiny recent bilateral cerebellar infarcts better seen on prior MRI. There is stable associated right occipitotemporal mass effect with effacement of the right lateral ventricular temporal horn and likely associated minor entrapment anteriorly. There is no evidence of significant hemorrhagic conversion of infarct. Additional tiny recent left lateral periatrial infarct on MRI is not well seen by CT. Stable additional small, recent cortical infarct along the right mid cingulate sulcus. Additional tiny right precuneus parietal and bilateral occipital infarcts are better demonstrated on recent MRI. There has been no significant interval change in size of the lateral right cerebral convexity mixed attenuating subdural hematoma, currently measuring up to 1.2 cm in depth (coronal image 32). There is persistent associated intracranial mass effect with up to 0.6 cm of leftward midline shift and mild right cerebral sulcal effacement. No descending herniation. Prominent perivascular spaces are present within the inferior basal ganglia. There are mild underlying patchy cerebral white matter hypodensities, consistent with nonspecific white matter disease. Tiny chronic cerebellar infarcts, also better seen on prior MRI. Prior ocular was replacements. Paranasal sinuses and mastoid air cells are well-aerated. Calcified plaque in the carotid siphons and intracranial vertebral arteries bilaterally. Small geographic marrow lesion at the clivus is better seen on MRI. IMPRESSION 1. No acute intracranial hemorrhage. 2. Redemonstration of a moderate sized subacute right GENERATOR ASSEMBLER territory infarct without evidence of significant hemorrhagic conversion. Associated localized right cerebral mass effect with stable asymmetric enlargement of the right lateral ventricular temporal horn. 3. Unchanged additional likely recent t iny right posterolateral cerebellar and small medial right frontal-cingulate infarcts. Several additional small recent bilateral cerebral and cerebellar infarcts are better seen on recent MRI from 2 days earlier. 4. Stable size of the right cerebral co nvexity mixed density subdural hematoma and associated intracranial mass effect with up to to 0.6 cm of leftward midline shift. 5. Stable mild patchy cerebral white ma tter hypodensities, consistent with nonspecific white matter disease, with tiny chronic mild cerebellar infarcts. 6. 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 Dr. Luong discussed these findings with Dr. Rob by telephone at 7:48 PM on 10/27/2022. By my electronic signature, I attest that I have personally reviewed the images for this examination and formulated the interpretations and opinions expressed in this report Finalized by Eric Nava M.D. on 10/27/2022 8:05 PM. Dictated by Fernando Luong M.D. on 10/27/2022 7:38 PM. Portillo March MD CT ORDERABLES * (ABNORMAL) CBC AND DIFF (10/27/2022 4:16 AM DISTRIBUTOR OPERATOR) Pathologist Signature Component Value Ref Test Method Analysis Performed A t Range Time White Blood Cells 6.3 4.5 - 10/27/2022 [facility] DE PT PATH AND 11.0 4:53 AM LAB MEDICINE K/UL DISTRIBUTOR OPERATOR RBC 3.52 (L) 4.4 - 10/27/2022 [facility] DEPT PAT H AND 5.5 M/UL 4:53 AM LAB MEDICINE DISTRIBUTOR OPERATOR Hemoglobin 11.9 (L) 13.5 - 10/27/2022 [facility] DEPT PAT H AND 16.5 4:53 AM LAB MEDICINE GM/DL DISTRIBUTOR OPERATOR Hematocrit 35.1 (L) 40 - 50 10/27/2022 [facility] DEPT PAT H AND % 4:53 AM LAB MEDICINE DISTRIBUTOR OPERATOR MCV 99.7 80 - 100 10/27/2022 [facility] DEPT PAT H AND FL 4:53 AM LAB MEDICINE DISTRIBUTOR OPERATOR MCH 33.8 26 - 34 10/27/2022 [facility] DEPT PAT H AND PG 4:53 AM LAB MEDICINE DISTRIBUTOR OPERATOR MCHC 33.9 32.0 - 10/27/2022 [facility] DEPT PAT H AND 36.0 4:53 AM LAB MEDICINE G/DL DISTRIBUTOR OPERATOR RDW 14.2 11 - 15 10/27/2022 [facility] DEPT PAT H AND % 4:53 AM LAB MEDICINE DISTRIBUTOR OPERATOR Platelet Count 92 (L) 150 - 10/27/2022 [facility] DEPT PATH AND 400 K/UL 4:53 AM LAB MEDICINE DISTRIBUTOR OPERATOR MPV 9.0 7 - 11 10/27/2022 [facility] DEPT PAT H AND FL 4:53 AM LAB MEDICINE DISTRIBUTOR OPERATOR Neutrophils 77 41 - 77 10/27/2022 [facility] DEPT PAT H AND % 4:53 AM LAB MEDICINE DISTRIBUTOR OPERATOR Lymphocytes 6 (L) 24 - 44 10/27/2022 [facility] DEPT PAT H AND % 4:53 AM LAB MEDICINE DISTRIBUTOR OPERATOR Monocytes 15 (H) 4 - 12 % 10/27/2022 [facility] DEPT PAT H AND 4:53 AM LAB MEDICINE DISTRIBUTOR OPERATOR Eosinophils 1 0 - 5 % 10/27/2022 [facility] DEPT PAT H AND 4:53 AM LAB MEDICINE DISTRIBUTOR OPERATOR Basophils 1 0 - 2 % 10/27/2022 [facility] DEPT PAT H AND 4:53 AM LAB MEDICINE DISTRIBUTOR OPERATOR Absolute Neutrophil 4.87 1.8 - 10/27/2022 [facility] DEPT PATH AND Count 7.0 K/UL 4:53 AM LAB MEDICINE DISTRIBUTOR OPERATOR Absolute Lymph Count 0.39 (L) 1.0 - 10/27/2022 [facility] DEPT PATH AND 4.8 K/UL 4:53 AM LAB MEDICINE DISTRIBUTOR OPERATOR Absolute Monocyte 0.97 (H) 0 - 0.80 10/27/2022 [facility] DE PT PATH AND Count K/UL 4:53 AM LAB MEDICINE DISTRIBUTOR OPERATOR Absolute Eosinophil 0.05 0 - 0.45 10/27/2022 [facility] DEPT PATH AND Count K/UL 4:53 AM LAB MEDICINE DISTRIBUTOR OPERATOR Absolute Basophil 0.04 0 - 0.20 10/27/2022 [facility] DE PT PATH AND Count K/UL 4:53 AM LAB MEDICINE DISTRIBUTOR OPERATOR Anatomical Location / Laterality Collection Method / Volume Eva ection Time Received Time Specimen (Source) BLOOD / Unknown 10/27/2022 4:16 AM DISTRIBUTOR OPERATOR 10/27/20 4:17 AM DISTRIBUTOR OPERATOR Portillo March MD LABORATORY ORDERABLES City/State/ZIP Code Phone Number Performing [place] [address] [facility] DEPT PATH AND [address] [facility] LAB MEDICINE * BASIC METABOLIC PANEL (10/27/2022 4:16 AM DISTRIBUTOR OPERATOR) Pathologist Signature Component Value Ref Test Method Analysis Performed A t Range Time Sodium 140 137 - 10/27/2022 [facility] DEPT PAT H AND 147 5:17 AM LAB MEDICINE MMOL/L DISTRIBUTOR OPERATOR Potassium 3.8 3.5 - 10/27/2022 [facility] DEPT PAT H AND 5.1 5:17 AM LAB MEDICINE MMOL/L DISTRIBUTOR OPERATOR Chloride 106 98 - 110 10/27/2022 [facility] DEPT PAT H AND MMOL/L 5:17 AM LAB MEDICINE DISTRIBUTOR OPERATOR CO2 24 21 - 30 10/27/2022 [facility] DEPT PAT H AND MMOL/L 5:17 AM LAB MEDICINE DISTRIBUTOR OPERATOR Anion Gap 10 3 - 12 10/27/2022 [facility] DEPT PAT H AND 5:17 AM LAB MEDICINE DISTRIBUTOR OPERATOR Glucose 96 70 - 100 10/27/2022 [facility] DEPT PAT H AND MG/DL 5:17 AM LAB MEDICINE DISTRIBUTOR OPERATOR Blood Urea Nitrogen 18 7 - 25 10/27/2022 [facility] DEPT PATH AND MG/DL 5:17 AM LAB MEDICINE DISTRIBUTOR OPERATOR Creatinine 0.97 0.4 - 10/27/2022 [facility] DEPT PAT H AND 1.24 5:17 AM LAB MEDICINE MG/DL DISTRIBUTOR OPERATOR Calcium 8.7 8.5 - 10/27/2022 [facility] DEPT PAT H AND 10.6 5:17 AM LAB MEDICINE MG/DL DISTRIBUTOR OPERATOR eGFR >60 >60 10/27/2022 [facility] DEPT PAT H AND mL/min 5:17 AM LAB MEDICINE DISTRIBUTOR OPERATOR Comment: eGFR calculated using the CKD-EPIcr_R equation Anatomical Location / Laterality Collection Method / Volume Eva ection Time Received Time Specimen (Source) BLOOD / Unknown 10/27/2022 4:16 AM DISTRIBUTOR OPERATOR 10/27/20 4:17 AM DISTRIBUTOR OPERATOR Portillo March MD LABORATORY ORDERABLES City/State/ZIP Code Phone Number Performing [place] [address] [facility] DEPT PATH AND [address] [facility] LAB MEDICINE * (ABNORMAL) CBC AND DIFF (10/26/2022 9:59 AM DISTRIBUTOR OPERATOR) Pathologist Signature Component Value Ref Test Method Analysis Performed A t Range Time White Blood Cells 7.4 4.5 - 10/26/2022 [facility] DE PT PATH AND 11.0 10:41 AM LAB MEDICINE K/UL DISTRIBUTOR OPERATOR RBC 3.50 (L) 4.4 - 10/26/2022 [facility] DEPT PAT H AND 5.5 M/UL 10:41 AM LAB MEDICINE DISTRIBUTOR OPERATOR Hemoglobin 11.7 (L) 13.5 - 10/26/2022 [facility] DEPT PAT H AND 16.5 10:41 AM LAB MEDICINE GM/DL DISTRIBUTOR OPERATOR Hematocrit 34.9 (L) 40 - 50 10/26/2022 [facility] DEPT PAT H AND % 10:41 AM LAB MEDICINE DISTRIBUTOR OPERATOR MCV 99.7 80 - 100 10/26/2022 [facility] DEPT PAT H AND FL 10:41 AM LAB MEDICINE DISTRIBUTOR OPERATOR MCH 33.5 26 - 34 10/26/2022 [facility] DEPT PAT H AND PG 10:41 AM LAB MEDICINE DISTRIBUTOR OPERATOR MCHC 33.6 32.0 - 10/26/2022 [facility] DEPT PAT H AND 36.0 10:41 AM LAB MEDICINE G/DL DISTRIBUTOR OPERATOR RDW 13.8 11 - 15 10/26/2022 [facility] DEPT PAT H AND % 10:41 AM LAB MEDICINE DISTRIBUTOR OPERATOR Platelet Count 98 (L) 150 - 10/26/2022 [facility] DEPT PATH AND 400 K/UL 10:41 AM LAB MEDICINE DISTRIBUTOR OPERATOR MPV 9.1 7 - 11 10/26/2022 [facility] DEPT PAT H AND FL 10:41 AM LAB MEDICINE DISTRIBUTOR OPERATOR Neutrophils 81 (H) 41 - 77 10/26/2022 [facility] DEPT PAT H AND % 10:41 AM LAB MEDICINE DISTRIBUTOR OPERATOR Lymphocytes 4 (L) 24 - 44 10/26/2022 [facility] DEPT PAT H AND % 10:41 AM LAB MEDICINE DISTRIBUTOR OPERATOR Monocytes 13 (H) 4 - 12 % 10/26/2022 [facility] DEPT PAT H AND 10:41 AM LAB MEDICINE DISTRIBUTOR OPERATOR Eosinophils 1 0 - 5 % 10/26/2022 [facility] DEPT PAT H AND 10:41 AM LAB MEDICINE DISTRIBUTOR OPERATOR Basophils 1 0 - 2 % 10/26/2022 [facility] DEPT PAT H AND 10:41 AM LAB MEDICINE DISTRIBUTOR OPERATOR Absolute Neutrophil 6.06 1.8 - 10/26/2022 [facility] DEPT PATH AND Count 7.0 K/UL 10:41 AM LAB MEDICINE DISTRIBUTOR OPERATOR Absolute Lymph Count 0.28 (L) 1.0 - 10/26/2022 [facility] DEPT PATH AND 4.8 K/UL 10:41 AM LAB MEDICINE DISTRIBUTOR OPERATOR Absolute Monocyte 0.97 (H) 0 - 0.80 10/26/2022 [facility] DE PT PATH AND Count K/UL 10:41 AM LAB MEDICINE DISTRIBUTOR OPERATOR Absolute Eosinophil 0.06 0 - 0.45 10/26/2022 [facility] DEPT PATH AND Count K/UL 10:41 AM LAB MEDICINE DISTRIBUTOR OPERATOR Absolute Basophil 0.05 0 - 0.20 10/26/2022 [facility] DE PT PATH AND Count K/UL 10:41 AM LAB MEDICINE DISTRIBUTOR OPERATOR Anatomical Location / Laterality Collection Method / Volume Eva ection Time Received Time Specimen (Source) BLOOD / Unknown 10/26/2022 9:59 AM DISTRIBUTOR OPERATOR 10/26/20 10:00 AM DISTRIBUTOR OPERATOR Portillo March MD LABORATORY ORDERABLES City/State/ZIP Code Phone Number Performing [place] [address] [facility] DEPT PATH AND [address] [facility] LAB MEDICINE * (ABNORMAL) BASIC METABOLIC PANEL (10/26/2022 9:59 AM DISTRIBUTOR OPERATOR) Pathologist Signature Component Value Ref Test Method Analysis Performed A t Range Time Sodium 138 137 - 10/26/2022 [facility] DEPT PAT H AND 147 10:53 AM LAB MEDICINE MMOL/L DISTRIBUTOR OPERATOR Potassium 3.6 3.5 - 10/26/2022 [facility] DEPT PAT H AND 5.1 10:53 AM LAB MEDICINE MMOL/L DISTRIBUTOR OPERATOR Chloride 106 98 - 110 10/26/2022 [facility] DEPT PAT H AND MMOL/L 10:53 AM LAB MEDICINE DISTRIBUTOR OPERATOR CO2 21 21 - 30 10/26/2022 [facility] DEPT PAT H AND MMOL/L 10:53 AM LAB MEDICINE DISTRIBUTOR OPERATOR Anion Gap 11 3 - 12 10/26/2022 [facility] DEPT PAT H AND 10:53 AM LAB MEDICINE DISTRIBUTOR OPERATOR Glucose 136 (H) 70 - 100 10/26/2022 [facility] DEPT PAT H AND MG/DL 10:53 AM LAB MEDICINE DISTRIBUTOR OPERATOR Blood Urea Nitrogen 19 7 - 25 10/26/2022 [facility] DEPT PATH AND MG/DL 10:53 AM LAB MEDICINE DISTRIBUTOR OPERATOR Creatinine 1.01 0.4 - 10/26/2022 [facility] DEPT PAT H AND 1.24 10:53 AM LAB MEDICINE MG/DL DISTRIBUTOR OPERATOR Calcium 9.0 8.5 - 10/26/2022 [facility] DEPT PAT H AND 10.6 10:53 AM LAB MEDICINE MG/DL DISTRIBUTOR OPERATOR eGFR >60 >60 10/26/2022 [facility] DEPT PAT H AND mL/min 10:53 AM LAB MEDICINE DISTRIBUTOR OPERATOR Comment: eGFR calculated using the [id number] equation Anatomical Location / Laterality Collection Method / Volume Eva ection Time Received Time Specimen (Source) BLOOD / Unknown 10/26/2022 9:59 AM DISTRIBUTOR OPERATOR 10/26/20 10:00 AM DISTRIBUTOR OPERATOR Portillo March MD LABORATORY ORDERABLES City/State/ZIP Code Phone Number Performing [place] [address] [facility] DE[facility] PATH AND [address] [facility] LAB MEDICINE * PERIPHERAL SMEAR (10/26/2022 9:59 AM DISTRIBUTOR OPERATOR) Pathologist Signature Component Value Ref Test Method Analysis Performed A t Range Time Peripheral Smear WHITE BLOOD 10/28/2022 [facility] DEPT PA TH AND CELLS APPEAR 9:59 PM LAB MEDICINE NORMAL, WITH DISTRIBUTOR OPERATOR MILD LYMPHOPENIA AND MILD INCREASE IN MATURE MONOCYTES. SEVERE NORMOCHROMIC ANEMIA AND MILD THROMBOCYTOP ENIA ARE PRESENT, WITHOUT SCHISTOCYTES OR MORPHOLOGIC FEATURES OF A HEMOLYTIC PROCESS. Pathologist INTERPRETED 10/28/2022 [facility] DE[facility] PATH AND Signature BY GENEVA 9:59 PM LAB MEDICINE FRITZ DISTRIBUTOR OPERATOR M.D. By the PATH SIGNATURE ABOVE, I attest that I have personally formulated the final interpretati on expressed in this report and that the above diagnosis is based upon my examination of the slides and/or other material indicated in this report. Anatomical Location / Laterality Collection Method / Volume Eva ection Time Received Time Specimen (Source) BLOOD / Unknown 10/26/2022 9:59 AM DISTRIBUTOR OPERATOR 10/26/20 10:00 AM DISTRIBUTOR OPERATOR Connie Dahl MD LABORATORY ORDERABLES [facility]/ZIP Code Phone Number Performing [place] [address] [facility] DEPT PATH AND [address] [facility] LAB MEDICINE * FOLATE, SERUM (10/26/2022 9:59 AM DISTRIBUTOR OPERATOR) Pathologist Signature Component Value Ref Test Method Analysis Performed A t Range Time Serum Folate >22.3 >3.9 10/26/2022 [facility] PA TH AND NG/ML 11:21 AM LAB MEDICINE DISTRIBUTOR OPERATOR Anatomical Location / Laterality Collection Method / Volume Eva ection Time Received Time Specimen (Source) BLOOD / Unknown 10/26/2022 9:59 AM DISTRIBUTOR OPERATOR 10/26/20 10:00 AM DISTRIBUTOR OPERATOR Connie Dahl MD LABORATORY ORDERABLES [facility]/ZIP Code Phone Number Performing [place] [address] [facility] DEPT PATH AND [address] [facility] LAB MEDICINE * (ABNORMAL) VITAMIN B12 (10/26/2022 9:59 AM DISTRIBUTOR OPERATOR) Pathologist Signature Component Value Ref Test Method Analysis Performed A t Range Time Vitamin B12 1,331 (H) 180 - 10/26/2022 [facility] PAT H AND 914 11:21 AM LAB MEDICINE PG/ML DISTRIBUTOR OPERATOR Anatomical Location / Laterality Collection Method / Volume Eva ection Time Received Time Specimen (Source) BLOOD / Unknown 10/26/2022 9:59 AM DISTRIBUTOR OPERATOR 10/26/20 10:00 AM DISTRIBUTOR OPERATOR Connie Dahl MD LABORATORY ORDERABLES [facility]/ZIP Code Phone Number Performing [place] [address] [facility] DEPT PATH AND [address] [facility] LAB MEDICINE * (ABNORMAL) IRON + BINDING CAPACITY + %SAT+ FERRITIN (10/26/2022 9:59 AM DISTRIBUTOR OPERATOR) Pathologist Signature Component Value Ref Test Method Analysis Performed A t Range Time Iron 28 (L) 50 - 185 10/26/2022 [facility] DEPT PAT H AND MCG/DL 10:53 AM LAB MEDICINE DISTRIBUTOR OPERATOR Iron Binding-TIBC 359 270 - 10/26/2022 [facility] PT PATH AND 380 10:53 AM LAB MEDICINE MCG/DL DISTRIBUTOR OPERATOR % Saturation 8 (L) 28 - 42 [facility] % 10:53 AM LAB MEDICINE DISTRIBUTOR OPERATOR Ferritin 38 30 - 300 10/26/2022 [facility] DEPT PAT H AND NG/ML 11:09 AM LAB MEDICINE DISTRIBUTOR OPERATOR Anatomical Location / Laterality Collection Method / Volume Eva ection Time Received Time Specimen (Source) BLOOD / Unknown 10/26/2022 9:59 AM DISTRIBUTOR OPERATOR 10/26/20 10:00 AM DISTRIBUTOR OPERATOR Connie Dahl MD LABORATORY ORDERABLES City/State/ZIP Code Phone Number Performing [place] [address] [facility] [address] [facility] LAB MEDICINE * (ABNORMAL) CT CHEST W CONTRAST (10/26/2022 4:20 AM DISTRIBUTOR OPERATOR) Modality Anatomical Region Laterality Computed Tomography CHEST Anatomical Location / Laterality Collection Method / Volume Eva ection Time Received Time Specimen (Source) 10/26/2022 8:23 AM DISTRIBUTOR OPERATOR Impressions 10/26/2022 8:35 AM DISTRIBUTOR OPERATOR 1. Small right upper lobe mass is stab le in size and configuration, most likely representing primary lung neoplasm. 2. Mild cardiomegaly with interstitial thickening and groundglass opacity throughout both lungs, most likely representing CHF. 3. Moderate mediastinal and bilateral hilar lymphadenopathy suspicious for metastatic disease. 4. Diffuse nodularity throughout both lungs and pleura concerning for metastatic disease. This could also be infectious. 5. Moderate emphysema and scattered ar eas of scarring. 6. Trace pleural effusions. 7. Small hypodense right renal lesion is indeterminate and may be a cyst. Ultrasound characterization is recommended. 8. Marked coronary artery calcificatio n. #FOLLOW Finalized by Johnny Gillespie M.D. on 10/26/2022 8:35 AM. Dictated by Johnny Gillespie M.D. on 10/26/2022 8:23 AM. Narrative 10/26/2022 8:[address] Chest Clinical Indication: Right upper lobe mass seen on CT neck of 1216. Technique: Multiple contiguous axial CT images were obtained through the chest and abdomen with IV contrast. Post processing coronal and sagittal reconstruction images were made from the axial images. Comparison: Partial comparison is made to images of CTA neck dated 10/25/2022. No comparison chest CTs available. Findings: Axilla, Mediastinum and Dahlia: There is no axillary lymphadenopathy. There is moderate mediastinal and bilateral hilar lymphadenopathy. A farm loan representative left lower paratracheal conglomerate measures 3.7 x 2.8 cm on series 301, image 49. Heart and Great Vessels: The heart size is mildly enlarged There is no pericardial effusion. Marked coronary artery calcification. 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 Lungs and Pleura: Moderate emphysema and scattered areas of scarring. Right upper lobe mass is stable in size and configuration measuring 3.1 x 2.3 cm on series 301, image 38. Tiny nodules are seen throughout both lungs and bilateral pleural surfaces. Interstitial thickening is seen bilaterally with mild groundglass opacity in both lungs. Trace pleural effusions. Chest Wall and Osseous Structures: No destructive osseous lesions. Upper Abdomen: A small indeterminate hypodense lesion is seen in the lower lateral right kidney on series 301, image 142. Hypodensity is seen throughout the anterior upper spleen consistent with infarct. Vascular calcifications are noted. Procedure Note Johnny Gillespie MD - 10/26/2022 CT Chest Clinical Indication: Right upper lobe mass seen on CT neck of 1216. Technique: Multiple contiguous axial CT images were obtained through the chest and abdomen with IV contrast. Post processing coronal and sagittal reconstruction images were made from the axial images. Comparison: Partial comparison is made to images of CTA neck dated 10/25/2022. No comparison chest CTs available. Findings: Axilla, Mediastinum and Dahlia: There is no axillary lymphadenopathy. There is moderate mediastinal and bilateral hilar lymphadenopathy. A farm loan representative left lower paratracheal conglomerate measures 3.7 x 2.8 cm on series 301, image 49. Heart and Great Vessels: The heart size is mildly enlarged There is no pericardial effusion. Marked coronary artery calcification. 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 Lungs and Pleura: Moderate emphysema and scattered areas of scarring. Right upper lobe mass is stable in size and configuration measuring 3.1 x 2.3 cm on series 301, image 38. Tiny nodules are seen throughout both lungs and bilateral pleural surfaces. Interstitial thickening is seen bilaterally with mild groundglass opacity in both lungs. Trace pleural effusions. Chest Wall and Osseous Structures: No destructive osseous lesions. Upper Abdomen: A small indeterminate hypodense lesion is seen in the lower lateral right kidney on series 301, image 142. Hypodensity is seen throughout the anterior upper spleen consistent with infarct. Vascular calcifications are noted. IMPRESSION 1. Small right upper lobe mass is stabl e in size and configuration, most likely representing primary lung neoplasm. 2. Mild cardiomegaly with interstitial thickening and groundglass opacity throughout both lungs, most likely representing CHF. 3. Moderate mediastinal and bilateral h ilar lymphadenopathy suspicious for metastatic disease. 4. Diffuse nodularity throughout both l ungs and pleura concerning for metastatic disease. This could also be infectious. 5. Moderate emphysema and scattered are as of scarring. 6. Trace pleural effusions. 7. Small hypodense right renal lesion i s indeterminate and may be a cyst. Ultrasound characterization is recommended. 8. Marked coronary artery calcification . #FOLLOW Finalized by Johnny Gillespie M.D. on 10/26/2022 8:35 AM. Dictated by Johnny Gillespie M.D. on 10/26/2022 8:[address] ORDERABLES WINDOW ASSEMBLER-[employer]ENT * MRI HEAD WO CONTRAST (10/25/2022 12:30 PM DISTRIBUTOR OPERATOR) Modality Anatomical Region Laterality Magnetic Resonance Head Anatomical Location / Laterality Collection Method / Volume Eva ection Time Received Time Specimen (Source) 10/25/2022 12:46 PM DISTRIBUTOR OPERATOR Impressions 10/25/2022 1:00 PM DISTRIBUTOR OPERATOR 1. Redemonstration of multiple scatter ed recent subacute appearing supratentorial and infratentorial infarcts (presumed embolic etiology) with a dominant small to moderate-sized right GENERATOR ASSEMBLER territory infarct. Unchanged associated right occipitotemporal mass effect. No evidence of hemorrhagic conversion of infarct. 2. Stable mixed signal intensity right cerebral convexity subdural hematoma measuring up to 1.2 cm in depth. 3. Persistent associated intracranial mass effect with mild leftward midline shift measuring up to 0.5 cm. 4. Mild underlying cerebral volume los s and patchy cerebral white matter FLAIR hyperintensities, likely due to chronic microvascular ischemic changes, with tiny chronic bilateral cerebellar infarcts and a small chronic area of left posterolateral temporal encephalomalacia gliosis. 5. Small geographic T1 hypointense mar row lesion involving the lower clivus, which is indeterminate though in the setting of pulmonary findings on same-day CTA head-neck could reflect an osseous metastasis. Finalized by Hunter Martinez DO on 10/25/2022 1:00 PM. Dictated by Hunter Martienz DO on 10/25/2022 12:46 PM. Narrative 10/25/2022 1:00 PM DISTRIBUTOR OPERATOR EXAM: MRI BRAIN HISTORY: Right posterior cerebral artery infarct. TECHNIQUE: Multiplanar and multisequence MR imaging of the head was performed. COMPARISON: Same day CTA head-neck. CT head 10/24/2022. FINDINGS: Multiple sequences are degraded and limited secondary to repetitive patient motion. Redemonstration of multifocal recent, subacute appearing supratentorial and infratentorial infarcts, including a dominant small to moderately sized right basal and mesial occipitotemporal infarct, tiny bilateral cerebellar infarcts, and multiple scattered small medial right frontal-cingulate, right precuneus parietal, and bilateral occipital infarcts. There is no evidence of hemorrhagic conversion of infarct. There is a small chronic area of encephalomalacia and gliosis in the left posterolateral temporal lobe and multiple tiny chronic right thalamic and bilateral cerebellar infarcts. Persistent associated right occipitotemporal mass effect and mild asymmetric prominence of the right lateral ventricular temporal horn. There has been no significant interval change in size of the right cerebral convexity mixed signal intensity subdural hematoma, measuring up to 1.2 cm in depth on series 9, image 18. No significant change in associated intracranial mass effect with mild leftward midline shift measuring up to 0.5 cm. No descending herniation. Mild underlying cerebral volume loss and patchy cerebral white matter FLAIR hyperintensities, consistent with nonspecific white matter disease. Trapped fluid in the left petrous apex. Previous ocular lens replacements are noted. There is a small geographic T1 hypointense lower clival marrow lesion (series 5, image 13). Procedure Note Hunter Martinez DO - 10/25/2022 EXAM: MRI BRAIN HISTORY: Right posterior cerebral artery infarct. TECHNIQUE: Multiplanar and multisequence MR imaging of the head was performed. COMPARISON: Same day CTA head-neck. CT head 10/24/2022. FINDINGS: Multiple sequences are degraded and limited secondary to repetitive patient motion. Redemonstration of multifocal recent, subacute appearing supratentorial and infratentorial infarcts, including a dominant small to moderately sized right basal and mesial occipitotemporal infarct, tiny bilateral cerebellar infarcts, and multiple scattered small medial right frontal-cingulate, right precuneus parietal, and bilateral occipital infarcts. There is no evidence of hemorrhagic conversion of infarct. There is a small chronic area of encephalomalacia and gliosis in the left posterolateral temporal lobe and multiple tiny chronic right thalamic and bilateral cerebellar infarcts. Persistent associated right occipitotemporal mass effect and mild asymmetric prominence of the right lateral ventricular temporal horn. There has been no significant interval change in size of the right cerebral convexity mixed signal intensity subdural hematoma, measuring up to 1.2 cm in depth on series 9, image 18. No significant change in associated intracranial mass effect with mild leftward midline shift measuring up to 0.5 cm. No descending herniation. Mild underlying cerebral volume loss and patchy cerebral white matter FLAIR hyperintensities, consistent with nonspecific white matter disease. Trapped fluid in the left petrous apex. Previous ocular lens replacements are noted. There is a small geographic T1 hypointense lower clival marrow lesion (series 5, image 13). IMPRESSION 1. Redemonstration of multiple scattere d recent subacute appearing supratentorial and infratentorial infarcts (presumed embolic etiology) with a dominant small to moderate-sized right GENERATOR ASSEMBLER territory infarct. Unchanged associated right occipitotemporal mass effect. No evidence of hemorrhagic conversion of infarct. 2. Stable mixed signal intensity right cerebral convexity subdural hematoma measuring up to 1.2 cm in depth. 3. Persistent associated intracranial m ass effect with mild leftward midline shift measuring up to 0.5 cm. 4. Mild underlying cerebral volume loss and patchy cerebral white matter FLAIR hyperintensities, likely due to chronic microvascular ischemic changes, with tiny chronic bilateral cerebellar infarcts and a small chronic area of left posterolateral temporal encephalomalacia gliosis. 5. Small geographic T1 hypointense keith ow lesion involving the lower clivus, which is indeterminate though in the setting of pulmonary findings on same-day CTA head-neck could reflect an osseous metastasis. Finalized by Hunter Martinez DO on 10/25/2022 1:00 PM. Dictated by Hunter Martinez DO on 10/25/2022 12:46 PM. Portillo March MD MR ORDERABLES * 2D + DOPPLER ECHO W/ CONTRAST (10/25/2022 12:04 PM DISTRIBUTOR OPERATOR) Pathologist Signature Component Value Ref Test Method Analysis Performed A t Range Time Left Ventricle 138.00 62 - 150 OTHER OUTSIDE L AB Diastolic Volume mL Left Ventricle 25.00 21 - 61 OTHER OUTSIDE L AB Systolic Volume mL IVS 1.22 0.6 - OTHER OUTSIDE L AB 1.0 cm LVIDD 4.56 4.2 - OTHER OUTSIDE L AB 5.8 cm LVIDS 2.62 2.5 - OTHER OUTSIDE L AB 4.0 cm LVOT diameter 2.10 cm OTHER OUTSIDE L AB PW 0.86 0.6 - OTHER OUTSIDE L AB 1.0 cm TDI lateral e' 0.08 m/s OTHER OUTSIDE L AB TDI Medial e' 0.06 m/s OTHER OUTSIDE L AB LA volume 62.20 18 - 58 OTHER OUTSIDE L AB mL LA size 3.69 3.0 - OTHER OUTSIDE L AB 4.0 cm , with a mean 43 mmHg OTHER OUTSIDE L AB gradient of Ao VTI 107.00 cm OTHER OUTSIDE L AB Sinus 2.87 2.8 - OTHER OUTSIDE L AB 4.0 cm Mr max elma 6.42 m/s OTHER OUTSIDE L AB MV Peak A Elma 1.56 m/s OTHER OUTSIDE L AB MV Peak E Elma PW 1.13 m/s OTHER OUTSIDE LAB MV mean gradient 4.00 mmHg OTHER OUTSIDE LAB MV VTI 61.90 cm OTHER OUTSIDE L AB Proximal aorta 2.75 2.6 - OTHER OUTSIDE L AB 3.8 cm Right Heart Systolic 2.30 >1.7 cm OTHER OUT SIDE LAB Mmode TAPSE Right Ventricular 2.11 1.9 - OTHER OUTSID E LAB Mid Diameter 3.5 cm Right Ventricular 2.50 2.5 - OTHER OUTSID E LAB Basal Diameter 4.1 cm Right Atrial Area 12.40 <18 cm2 OTHER OUTSID E LAB Right Heart Systolic 0.17 m/s OTHER OUT SIDE LAB TDI S' BSA 1.66 m2 OTHER OUTSIDE L AB CV ECHO PV SUPPORT Floor RN, OTHER OUTSIDE LAB STAFF bubbles FS 42.54 28 - 44 OTHER OUTSIDE L AB % Teichholtz 72.32 % OTHER OUTSIDE L AB LV mass 165 88 - 224 OTHER OUTSIDE L AB g RWT 0.38 <=0.42 OTHER OUTSIDE L AB E/A ratio 0.72 OTHER OUTSIDE LAB LVOT area 3.46 cm2 OTHER OUTSIDE L AB Lateral E/E' ratio 14.13 OTHER OUTSIDE LAB Left Atrium Index 37.47 16 - 34 OTHER OUTSID E LAB mL/m2 Cardiology Mason Epiq OTHER OUTSIDE LAB Ultrasound Machine Left Ventricle Mass 100 49 - 115 OTHER OUTS L[facility] LAB Index g/m2 Left Ventricle 83 34 - 74 OTHER OUTSIDE L AB Diastolic Volume mL/m2 Index Left Ventricle 15 11 - 31 OTHER OUTSIDE L AB Systolic Volume mL/m2 Index Medial E/E' ratio 18.83 OTHER OUTSIDE LAB RA PRESSURE 3 OTHER OUTSIDE LAB AV peak velocity 5.0 m/s OTHER OUTSIDE LAB and a peak gradient 99 mmHg OTHER OUTS LYNDSA[facility] LAB of TV rest pulmonary 28 mmHg OTHER OUTSID E LAB artery pressure TR PEAK VELOCITY 2.5 m/s OTHER OUTSIDE LAB RV SYSTOLIC PRESSURE 25 OTHER OUTSIDE LAB GARVEY'S BIPLANE EF 82 % OTHER OUT SIDE LAB Modality Anatomical Region Laterality Ultrasound Anatomical Location / Laterality Collection Method / Volume Eva ection Time Received Time Specimen (Source) Narrative 10/25/2022 12:46 PM DISTRIBUTOR OPERATOR 1. Normal LV size and hyperdynamic systolic function. LVEF 82% 2. Mild LVH with grade 2 moderate left v entricular diastolic dysfunction. 3. Normal RV size and systolic function. 4. 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 Gradients measured across the aortic valve were elevated with mean gradient of 43 mmHg and peak velocity of 5 m/s. However, there is eccentric mitral regurgitation jet that may be contaminating these tracings. The flow across the bioprosthetic aortic valve does not appear to be significantly turbulent. LVOT VTI was elevated and aliasing due to the hyperdynamic LV function of 82%. Therefore it was not possible to obtain DVI or valve area. Recommend ANSELMO to better evaluate aortic valve function if clinically indicated. There is mild eccentric aortic valve regurgitation 5. Moderate eccentric mitral valve regur gitation. 6. Mild to moderate tricuspid valve regu rgitation 7. Estimated peak systolic PA pressure o f 28 mmHg No previous echo for comparison. Left Ventricle The left ventricular size is normal. Concentric hypertrophy. The left ventricular systolic function is hyperdynamic. The ejection fraction by Garvey's biplane method is 82%. Grade II (moderate) left ventricular diastolic dysfunction. Elevated left atrial pressure. Right Ventricle The right ventricular size is normal. The right ventricular systolic function is hyperdynamic. Left Atrium Mildly dilated. There is no interatrial shunting by color flow Doppler and saline contrast studies. Right Atrium Normal size. IVC/SVC Normal central venous pressure (0-5 mm Hg). Mitral Valve Non-specific thickening. No stenosis. Moderate regurgitation. There is severe mitral annular calcification. Tricuspid Valve Normal valve structure. No stenosis. Mild to moderate regurgitation. Aortic Valve There is a bioprosthetic valve present. Mild to moderate regurgitation. Pericardium No pericardial effusion. Pulmonary The pulmonic valve was not seen well but no Doppler evidence of stenosis. No regurgitation. Aorta The aortic root and ascending aorta are normal in size. Wall Scoring Resting Score Index: 1.000 Percent Normal: 0.0% The left ventricular wall motion is globally hyperkinetic. Portillo March MD ECHO ORDERABLES * CTA NECK WO/W CONT (10/25/2022 8:45 AM DISTRIBUTOR OPERATOR) Modality Anatomical Region Laterality Computed Tomography HEAD/NECK Anatomical Location / Laterality Collection Method / Volume Eva ection Time Received Time Specimen (Source) 10/25/2022 9:05 AM DISTRIBUTOR OPERATOR Impressions 10/25/2022 9:49 AM DISTRIBUTOR OPERATOR CTA head: 1. Redemonstration of a small-moderate ly sized subacute right GENERATOR ASSEMBLER territory infarct without evidence of hemorrhagic conversion. Associated localized right cerebral mass effect with stable asymmetric enlargement of the right lateral ventricular temporal horn. 2. Additional likely recent tiny right posterolateral cerebellar and small medial right frontal-cingulate infarcts. 3. Stable size of the right cerebral c onvexity mixed density subdural hematoma and associated intracranial mass effect with up to 0.5 cm of leftward midline shift. 4. Stable mild patchy cerebral white m atter hypodensities, consistent with nonspecific white matter disease, with tiny chronic left cerebellar infarcts. 5. 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 Additional less pronounced stenoses are described above. No evidence of large vessel occlusion. CTA neck: 1. Atherosclerotic vascular disease re sulting in a severe, likely near occlusive luminal stenosis of the left cervical vertebral origin. Additional scattered, mild and moderate atherosclerotic luminal stenoses involving the great vessels are described in detail above. No hemodynamically significant ICA stenosis by NASCET criteria. 2. Emphysema with an irregular, massli ke right upper lobe opacity and patchy underlying vwxgbzrtyjt-soss-kl-bud opacities throughout the visualized lungs. There is also relatively diffuse pulmonary septal thickening throughout the visualized lungs. Infectious-inflammatory pneumonia and potentially a component of underlying pulmonary edema could contribute to the more diffuse pulmonary findings, though, aforementioned dominant masslike right upper lobe opacity is suspect for neoplasm. CT chest is recommended to more completely evaluate pulmonary findings. 3. Multistation mediastinal and hilar lymphadenopathy. Discussed with Isamar Newell APRN by myself via telephone at 9:49 AM on 10/25/2022 Finalized by Hunter Martinez DO on 10/25/2022 9:49 AM. Dictated by Hunter Martinez DO on 10/25/2022 9:05 AM. Narrative 10/25/2022 9:49 AM DISTRIBUTOR OPERATOR EXAM: CTA HEAD AND NECK HISTORY: Stroke workup. TECHNIQUE: Multiple contiguous axial images were obtained of the brain and neck following the administration of IV contrast. Precontrast axial images were also obtained of the brain. CTA maximum density projection images were obtained of the brain and neck with image post processing. Comparison: CT head 10/24/2022 at 10:51 PM. FINDINGS: CTA head: Redemonstration of a small to moderately sized subacute right basal and mesial occipitotemporal [employer] territory infarct and a tiny recent right posterolateral cerebellar infarct. Retrospectively stable additional small cortical infarct along the right mid cingulate sulcus, new since CT head 10/12/2022 (series 601, image 63). There is persistent associated right occipitotemporal mass effect with effacement of the right lateral ventricular temporal horn and likely associated minor entrapment anteriorly, given asymmetric enlargement and increased in size since head CT 10/12/2022. There is no evidence of hemorrhagic conversion of infarct. There has been no significant interval change in size of the lateral right cerebral convexity mixed attenuating subdural hematoma, currently measuring up to 1.2 cm in depth on coronal image 38. There is persistent associated intracranial mass effect with up to 0.5 cm of leftward midline shift. No descending herniation. Prominent perivascular spaces are present within the inferior basal ganglia. There are mild underlying patchy cerebral white matter hypodensities, consistent with nonspecific white matter disease. Tiny chronic left cerebellar infarct. Densely calcified atherosclerotic plaque throughout the carotid siphons resulting in multifocal atherosclerotic luminal stenoses, most pronounced and of mild to moderate degree involving the right cavernous segment. Hypoplastic- atretic right A1 segment. The right anterior cerebral artery is supplied via a patent left A1 segment and anterior communicating artery. Calcified atherosclerotic plaque involving the supracallosal left RODOLFO likely with at least moderate associated luminal narrowing. The distal anterior cerebral arteries remain patent. Multifocal luminal irregularity of the bilateral middle cerebral arteries with a short segment of severe right supraclinoid ICA luminal stenosis (series 3, image 475). The distal cervical vertebral arteries are patent, including the nondominant left vertebral artery which terminates predominantly in PICA. There is multifocal calcified atherosclerotic plaque involving the intracranial vertebral arteries, more pronounced in the left, resulting in multifocal left vertebral luminal stenoses, of severe degree just beyond the PICA origin. Diminutive caliber of the left distal V4 segment. The basilar artery is tortuous and widely patent. The bilateral posterior cerebral arteries are patent. No aneurysm or arteriovenous malformation is identified. CTA neck: There is mixed density, calcified and noncalcified atherosclerotic plaque involving the aortic arch and great vessel origins. Multifocal mild to moderate atherosclerotic luminal stenoses involving the visualized subclavian arteries, most notable involving the proximal left subclavian artery and origin. Mixed density, though, predominantly noncalcified plaque at the vertebral artery origins resulting in a severe left vertebral origin stenosis. Additional multifocal luminal irregularity and at least moderate luminal stenosis throughout the course of the small caliber left cervical vertebral artery. Sc attered atherosclerotic plaque and mild spondylitic narrowing along the course of the right cervical vertebral artery. Mixed density atherosclerotic plaque involving the bilateral common carotid arteries resulting in up to moderate stenosis of the left mid common carotid artery. Mixed density, though, predominantly calcified atherosclerotic plaque at the left carotid bifurcation and proximal cervical ICA resulting in less than 40% luminal stenosis of the left ICA origin. Mixed density atherosclerotic plaque involving the proximal left cervical internal carotid artery without hemodynamically significant associated luminal stenosis by NASCET criteria. No aneurysm, AVM, or dissection is identified. The cervical soft tissues are unremarkable. Scattered calcified parotid sialoliths. The paranasal sinus and mastoid air cells are clear. Mild cervical spondylosis. There is centrilobular emphysema and mild diffuse pulmonary septal thickening. There is an irregular, focal masslike opacity in the right upper lobe with additional underlying patchy areas of tree-in-bud and groundglass pulmonary opacities throughout the visualized upper lungs. Multistation mediastinal and hilar lymphadenopathy, with a few scattered calcified mediastinal and hilar granulomas. Procedure Note Hunter Martinez, DO - 10/25/2022 EXAM: CTA HEAD AND NECK HISTORY: Stroke workup. TECHNIQUE: Multiple contiguous axial images were obtained of the brain and neck following the administration of IV contrast. Precontrast axial images were also obtained of the brain. CTA maximum density projection images were obtained of the brain and neck with image post processing. Comparison: CT head 10/24/2022 at 10:51 PM. FINDINGS: CTA head: Redemonstration of a small to moderately sized subacute right basal and mesial occipitotemporal [employer] territory infarct and a tiny recent right posterolateral cerebellar infarct. Retrospectively stable additional small cortical infarct along the right mid cingulate sulcus, new since CT head 10/12/2022 (series 601, image 63). There is persistent associated right occipitotemporal mass effect with effacement of the right lateral ventricular temporal horn and likely associated minor entrapment anteriorly, given asymmetric enlargement and increased in size since head CT 10/12/2022. There is no evidence of hemorrhagic conversion of infarct. There has been no significant interval change in size of the lateral right cerebral convexity mixed attenuating subdural hematoma, currently measuring up to 1.2 cm in depth on coronal image 38. There is persistent associated intracranial mass effect with up to 0.5 cm of leftward midline shift. No descending herniation. Prominent perivascular spaces are present within the inferior basal ganglia. There are mild underlying patchy cerebral white matter hypodensities, consistent with nonspecific white matter disease. Tiny chronic left cerebellar infarct. Densely calcified atherosclerotic plaque throughout the carotid siphons resulting in multifocal atherosclerotic luminal stenoses, most pronounced and of mild to moderate degree involving the right cavernous segment. Hypoplastic- atretic right A1 segment. The right anterior cerebral artery is supplied via a patent left A1 segment and anterior communicating artery. Calcified atherosclerotic plaque involving the supracallosal left RODOLFO likely with at least moderate associated luminal narrowing. The distal anterior cerebral arteries remain patent. Multifocal luminal irregularity of the bilateral middle cerebral arteries with a short segment of severe right supraclinoid ICA luminal stenosis (series 3, image 475). The distal cervical vertebral arteries are patent, including the nondominant left vertebral artery which terminates predominantly in PICA. There is multifocal calcified atherosclerotic plaque involving the intracranial vertebral arteries, more pronounced in the left, resulting in multifocal left vertebral luminal stenoses, of severe degree just beyond the PICA origin. Diminutive caliber of the left distal V4 segment. The basilar artery is tortuous and widely patent. The bilateral posterior cerebral arteries are patent. No aneurysm or arteriovenous malformation is identified. CTA neck: There is mixed density, calcified and noncalcified atherosclerotic plaque involving the aortic arch and great vessel origins. Multifocal mild to moderate atherosclerotic luminal stenoses involving the visualized subclavian arteries, most notable involving the proximal left subclavian artery and origin. Mixed density, though, predominantly noncalcified plaque at the vertebral artery origins resulting in a severe left vertebral origin stenosis. Additional multifocal luminal irregularity and at least moderate luminal stenosis throughout the course of the small caliber left cervical vertebral artery. Scattered atherosclerotic plaque and mild spondylitic narrowing along the course of the right cervical vertebral artery. Mixed density atherosclerotic plaque involving the bilateral common carotid arteries resulting in up to moderate stenosis of the left mid common carotid artery. Mixed density, though, predominantly calcified atherosclerotic plaque at the left carotid bifurcation and proximal cervical ICA resulting in less than 40% luminal stenosis of the left ICA origin. Mixed density atherosclerotic plaque involving the proximal left cervical internal carotid artery without hemodynamically significant associated luminal stenosis by NASCET criteria. No aneurysm, AVM, or dissection is identified. The cervical soft tissues are unremarkable. Scattered calcified parotid sialoliths. The paranasal sinus and mastoid air cells are clear. Mild cervical spondylosis. There is centrilobular emphysema and mild diffuse pulmonary septal thickening. There is an irregular, focal masslike opacity in the right upper lobe with additional underlying patchy areas of tree-in-bud and groundglass pulmonary opacities throughout the visualized upper lungs. Multistation mediastinal and hilar lymphadenopathy, with a few scattered calcified mediastinal and hilar granulomas. IMPRESSION CTA head: 1. 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 Associated localized right cerebral mass effect with stable asymmetric enlargement of the right lateral ventricular temporal horn. 2. Additional likely recent tiny right posterolateral cerebellar and small medial right frontal-cingulate infarcts. 3. Stable size of the right cerebral co nvexity mixed density subdural hematoma and associated intracranial mass effect with up to 0.5 cm of leftward midline shift. 4. Stable mild patchy cerebral white ma tter hypodensities, consistent with nonspecific white matter disease, with tiny chronic left cerebellar infarcts. 5. 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 Additional less pronounced stenoses are described above. No evidence of large vessel occlusion. CTA neck: 1. Atherosclerotic vascular disease res ulting in a severe, likely near occlusive luminal stenosis of the left cervical vertebral origin. Additional scattered, mild and moderate atherosclerotic luminal stenoses involving the great vessels are described in detail above. No hemodynamically significant ICA stenosis by NASCET criteria. 2. Emphysema with an irregular, masslik e right upper lobe opacity and patchy underlying pynwxcdmvjq-yogz-vo-bud opacities throughout the visualized lungs. There is also relatively diffuse pulmonary septal thickening throughout the visualized lungs. Infectious-inflammatory pneumonia and potentially a component of underlying pulmonary edema could contribute to the more diffuse pulmonary findings, though, aforementioned dominant masslike right upper lobe opacity is suspect for neoplasm. CT chest is recommended to more completely evaluate pulmonary findings. 3. Multistation mediastinal and hilar l ymphadenopathy. Discussed with Isamar Newell APRN by myself via telephone at 9:49 AM on 10/25/2022 Finalized by Hunter Martinez DO on 10/25/2022 9:49 AM. Dictated by Hunter Martinez DO on 10/25/2022 9:05 AM. Portillo March MD CT ORDERABLES * CTA HEAD WO/W CONT (10/25/2022 8:45 AM DISTRIBUTOR OPERATOR) Modality Anatomical Region Laterality Computed Tomography Head Anatomical Location / Laterality Collection Method / Volume Eva ection Time Received Time Specimen (Source) 10/25/2022 9:05 AM DISTRIBUTOR OPERATOR Impressions 10/25/2022 9:49 AM DISTRIBUTOR OPERATOR CTA head: 1. Redemonstration of a small-moderate ly sized subacute right [employer] territory infarct without evidence of hemorrhagic conversion. Associated localized right cerebral mass effect with stable asymmetric enlargement of the right lateral ventricular temporal horn. 2. Additional likely recent tiny right posterolateral cerebellar and small medial right frontal-cingulate infarcts. 3. Stable size of the right cerebral c onvexity mixed density subdural hematoma and associated intracranial mass effect with up to 0.5 cm of leftward midline shift. 4. Stable mild patchy cerebral white m atter hypodensities, consistent with nonspecific white matter disease, with tiny chronic left cerebellar infarcts. 5. 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 Additional less pronounced stenoses are described above. No evidence of large vessel occlusion. CTA neck: 1. Atherosclerotic vascular disease re sulting in a severe, likely near occlusive luminal stenosis of the left cervical vertebral origin. Additional scattered, mild and moderate atherosclerotic luminal stenoses involving the great vessels are described in detail above. No hemodynamically significant ICA stenosis by NASCET criteria. 2. Emphysema with an irregular, massli ke right upper lobe opacity and patchy underlying bapfpmizken-wwoa-ao-bud opacities throughout the visualized lungs. There is also relatively diffuse pulmonary septal thickening throughout the visualized lungs. Infectious-inflammatory pneumonia and potentially a component of underlying pulmonary edema could contribute to the more diffuse pulmonary findings, though, aforementioned dominant masslike right upper lobe opacity is suspect for neoplasm. CT chest is recommended to more completely evaluate pulmonary findings. 3. Multistation mediastinal and hilar lymphadenopathy. Discussed with Isamar Newell APRN by myself via telephone at 9:49 AM on 10/25/2022 Finalized by Hunter Martinez DO on 10/25/2022 9:49 AM. Dictated by Hunter Martinez DO on 10/25/2022 9:05 AM. Narrative 10/25/2022 9:49 AM DISTRIBUTOR OPERATOR EXAM: CTA HEAD AND NECK HISTORY: Stroke workup. TECHNIQUE: Multiple contiguous axial images were obtained of the brain and neck following the administration of IV contrast. Precontrast axial images were also obtained of the brain. CTA maximum density projection images were obtained of the brain and neck with image post processing. Comparison: CT head 10/24/2022 at 10:51 PM. FINDINGS: CTA head: Redemonstration of a small to moderately sized subacute right basal and mesial occipitotemporal [employer] territory infarct and a tiny recent right posterolateral cerebellar infarct. Retrospectively stable additional small cortical infarct along the right mid cingulate sulcus, new since CT head 10/12/2022 (series 601, image 63). There is persistent associated right occipitotemporal mass effect with effacement of the right lateral ventricular temporal horn and likely associated minor entrapment anteriorly, given asymmetric enlargement and increased in size since head CT 10/12/2022. There is no evidence of hemorrhagic conversion of infarct. There has been no significant interval change in size of the lateral right cerebral convexity mixed attenuating subdural hematoma, currently measuring up to 1.2 cm in depth on coronal image 38. There is persistent associated intracranial mass effect with up to 0.5 cm of leftward midline shift. No descending herniation. Prominent perivascular spaces are present within the inferior basal ganglia. There are mild underlying patchy cerebral white matter hypodensities, consistent with nonspecific white matter disease. Tiny chronic left cerebellar infarct. Densely calcified atherosclerotic plaque throughout the carotid siphons resulting in multifocal atherosclerotic luminal stenoses, most pronounced and of mild to moderate degree involving the right cavernous segment. Hypoplastic- atretic right A1 segment. The right anterior cerebral artery is supplied via a patent left A1 segment and anterior communicating artery. Calcified atherosclerotic plaque involving the supracallosal left RODOLFO likely with at least moderate associated luminal narrowing. The distal anterior cerebral arteries remain patent. Multifocal luminal irregularity of the bilateral middle cerebral arteries with a short segment of severe right supraclinoid ICA luminal stenosis (series 3, image 475). The distal cervical vertebral arteries are patent, including the nondominant left vertebral artery which terminates predominantly in PICA. There is multifocal calcified atherosclerotic plaque involving the intracranial vertebral arteries, more pronounced in the left, resulting in multifocal left vertebral luminal stenoses, of severe degree just beyond the PICA origin. Diminutive caliber of the left distal V4 segment. The basilar artery is tortuous and widely patent. The bilateral posterior cerebral arteries are patent. No aneurysm or arteriovenous malformation is identified. CTA neck: There is mixed density, calcified and noncalcified atherosclerotic plaque involving the aortic arch and great vessel origins. Multifocal mild to moderate atherosclerotic luminal stenoses involving the visualized subclavian arteries, most notable involving the proximal left subclavian artery and origin. Mixed density, though, predominantly noncalcified plaque at the vertebral artery origins resulting in a severe left vertebral origin stenosis. Additional multifocal luminal irregularity and at least moderate luminal stenosis throughout the course of the small caliber left cervical vertebral artery. Sc attered atherosclerotic plaque and mild spondylitic narrowing along the course of the right cervical vertebral artery. Mixed density atherosclerotic plaque involving the bilateral common carotid arteries resulting in up to moderate stenosis of the left mid common carotid artery. Mixed density, though, predominantly calcified atherosclerotic plaque at the left carotid bifurcation and proximal cervical ICA resulting in less than 40% luminal stenosis of the left ICA origin. Mixed density atherosclerotic plaque involving the proximal left cervical internal carotid artery without hemodynamically significant associated luminal stenosis by NASCET criteria. No aneurysm, AVM, or dissection is identified. The cervical soft tissues are unremarkable. Scattered calcified parotid sialoliths. The paranasal sinus and mastoid air cells are clear. Mild cervical spondylosis. There is centrilobular emphysema and mild diffuse pulmonary septal thickening. There is an irregular, focal masslike opacity in the right upper lobe with additional underlying patchy areas of tree-in-bud and groundglass pulmonary opacities throughout the visualized upper lungs. Multistation mediastinal and hilar lymphadenopathy, with a few scattered calcified mediastinal and hilar granulomas. Procedure Note Hunter Martinez, DO - 10/25/2022 EXAM: CTA HEAD AND NECK HISTORY: Stroke workup. TECHNIQUE: Multiple contiguous axial images were obtained of the brain and neck following the administration of IV contrast. Precontrast axial images were also obtained of the brain. CTA maximum density projection images were obtained of the brain and neck with image post processing. Comparison: CT head 10/24/2022 at 10:51 PM. FINDINGS: CTA head: Redemonstration of a small to moderately sized subacute right basal and mesial occipitotemporal [employer] territory infarct and a tiny recent right posterolateral cerebellar infarct. Retrospectively stable additional small cortical infarct along the right mid cingulate sulcus, new since CT head 10/12/2022 (series 601, image 63). There is persistent associated right occipitotemporal mass effect with effacement of the right lateral ventricular temporal horn and likely associated minor entrapment anteriorly, given asymmetric enlargement and increased in size since head CT 10/12/2022. There is no evidence of hemorrhagic conversion of infarct. There has been no significant interval change in size of the lateral right cerebral convexity mixed attenuating subdural hematoma, currently measuring up to 1.2 cm in depth on coronal image 38. There is persistent associated intracranial mass effect with up to 0.5 cm of leftward midline shift. No descending herniation. Prominent perivascular spaces are present within the inferior basal ganglia. There are mild underlying patchy cerebral white matter hypodensities, consistent with nonspecific white matter disease. Tiny chronic left cerebellar infarct. Densely calcified atherosclerotic plaque throughout the carotid siphons resulting in multifocal atherosclerotic luminal stenoses, most pronounced and of mild to moderate degree involving the right cavernous segment. Hypoplastic- atretic right A1 segment. The right anterior cerebral artery is supplied via a patent left A1 segment and anterior communicating artery. Calcified atherosclerotic plaque involving the supracallosal left RODOLFO likely with at least moderate associated luminal narrowing. The distal anterior cerebral arteries remain patent. Multifocal luminal irregularity of the bilateral middle cerebral arteries with a short segment of severe right supraclinoid ICA luminal stenosis (series 3, image 475). The distal cervical vertebral arteries are patent, including the nondominant left vertebral artery which terminates predominantly in PICA. There is multifocal calcified atherosclerotic plaque involving the intracranial vertebral arteries, more pronounced in the left, resulting in multifocal left vertebral luminal stenoses, of severe degree just beyond the PICA origin. Diminutive caliber of the left distal V4 segment. The basilar artery is tortuous and widely patent. The bilateral posterior cerebral arteries are patent. No aneurysm or arteriovenous malformation is identified. CTA neck: There is mixed density, calcified and noncalcified atherosclerotic plaque involving the aortic arch and great vessel origins. Multifocal mild to moderate atherosclerotic luminal stenoses involving the visualized subclavian arteries, most notable involving the proximal left subclavian artery and origin. Mixed density, though, predominantly noncalcified plaque at the vertebral artery origins resulting in a severe left vertebral origin stenosis. Additional multifocal luminal irregularity and at least moderate luminal stenosis throughout the course of the small caliber left cervical vertebral artery. Scattered atherosclerotic plaque and mild spondylitic narrowing along the course of the right cervical vertebral artery. Mixed density atherosclerotic plaque involving the bilateral common carotid arteries resulting in up to moderate stenosis of the left mid common carotid artery. Mixed density, though, predominantly calcified atherosclerotic plaque at the left carotid bifurcation and proximal cervical ICA resulting in less than 40% luminal stenosis of the left ICA origin. Mixed density atherosclerotic plaque involving the proximal left cervical internal carotid artery without hemodynamically significant associated luminal stenosis by NASCET criteria. No aneurysm, AVM, or dissection is identified. The cervical soft tissues are unremarkable. Scattered calcified parotid sialoliths. The paranasal sinus and mastoid air cells are clear. Mild cervical spondylosis. There is centrilobular emphysema and mild diffuse pulmonary septal thickening. There is an irregular, focal masslike opacity in the right upper lobe with additional underlying patchy areas of tree-in-bud and groundglass pulmonary opacities throughout the visualized upper lungs. Multistation mediastinal and hilar lymphadenopathy, with a few scattered calcified mediastinal and hilar granulomas. IMPRESSION CTA head: 1. 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 Associated localized right cerebral mass effect with stable asymmetric enlargement of the right lateral ventricular temporal horn. 2. Additional likely recent tiny right posterolateral cerebellar and small medial right frontal-cingulate infarcts. 3. Stable size of the right cerebral co nvexity mixed density subdural hematoma and associated intracranial mass effect with up to 0.5 cm of leftward midline shift. 4. Stable mild patchy cerebral white ma tter hypodensities, consistent with nonspecific white matter disease, with tiny chronic left cerebellar infarcts. 5. 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 Additional less pronounced stenoses are described above. No evidence of large vessel occlusion. CTA neck: 1. Atherosclerotic vascular disease res ulting in a severe, likely near occlusive luminal stenosis of the left cervical vertebral origin. Additional scattered, mild and moderate atherosclerotic luminal stenoses involving the great vessels are described in detail above. No hemodynamically significant ICA stenosis by NASCET criteria. 2. Emphysema with an irregular, masslik e right upper lobe opacity and patchy underlying jxrzqjfqtjw-kbxv-kq-bud opacities throughout the visualized lungs. There is also relatively diffuse pulmonary septal thickening throughout the visualized lungs. Infectious-inflammatory pneumonia and potentially a component of underlying pulmonary edema could contribute to the more diffuse pulmonary findings, though, aforementioned dominant masslike right upper lobe opacity is suspect for neoplasm. CT chest is recommended to more completely evaluate pulmonary findings. 3. Multistation mediastinal and hilar l ymphadenopathy. Discussed with Isamar Newell APRN by myself via telephone at 9:49 AM on 10/25/2022 Finalized by Hunter Martinez DO on 10/25/2022 9:49 AM. Dictated by Hunter Martinez DO on 10/25/2022 9:05 AM. Portillo March MD CT ORDERABLES * HEMOGLOBIN A1C (10/25/2022 7:12 AM DISTRIBUTOR OPERATOR) Pathologist Signature Component Value Ref Test Method Analysis Performed A t Range Time Hemoglobin A1C 5.7 4.0 - 10/25/2022 [facility] DEPT PATH AND 6.0 % 11:09 AM LAB MEDICINE DISTRIBUTOR OPERATOR Comment: The ADA recommends that most patients with type 1 and type 2 diabetes maintain an A1c level <7%. Anatomical Location / Laterality Collection Method / Volume Eva ection Time Received Time Specimen (Source) BLOOD / Unknown 10/25/2022 7:12 AM DISTRIBUTOR OPERATOR 10/25/20 7:13 AM DISTRIBUTOR OPERATOR Portillo Mrach MD LABORATORY ORDERABLES [facility]/State/ZIP Code Phone Number Performing [place] [address] [facility] PATH AND [address] [facility] LAB MEDICINE * (ABNORMAL) LIPID PROFILE (10/25/2022 7:12 AM DISTRIBUTOR OPERATOR) Pathologist Signature Component Value Ref Test Method Analysis Performed A t Range Time Cholesterol 115 <200 10/25/2022 [facility] DEPT PAT H AND MG/DL 8:05 AM LAB MEDICINE DISTRIBUTOR OPERATOR Triglycerides 190 (H) <150 10/25/2022 [facility] DEPT P ATH AND MG/DL 8:05 AM LAB MEDICINE DISTRIBUTOR OPERATOR HDL 25 (L) >40 10/25/2022 [facility] DEPT PAT H AND MG/DL 8:05 AM LAB MEDICINE DISTRIBUTOR OPERATOR LDL 62 <100 10/25/2022 [facility] DEPT PAT H AND mg/dL 8:05 AM LAB MEDICINE DISTRIBUTOR OPERATOR VLDL 38 MG/DL 10/25/2022 [facility] DEPT PAT H AND 8:05 AM LAB MEDICINE DISTRIBUTOR OPERATOR Non HDL Cholesterol 90 MG/DL 10/25/2022 [facility] DEPT PATH AND 8:05 AM LAB MEDICINE DISTRIBUTOR OPERATOR Comment: Calculated non-HDL Cholesterol (non-HDL-C) indirectly measures LDL-C, Lp(a), IDL-C, and VLDL-C. It is a surrogate marker for Apoprotein B. Goal should be less than 130 mg/dL. Anatomical Location / Laterality Collection Method / Volume Eva ection Time Received Time Specimen (Source) BLOOD / Unknown 10/25/2022 7:12 AM DISTRIBUTOR OPERATOR 10/25/20 7:13 AM DISTRIBUTOR OPERATOR Portillo March MD LABORATORY ORDERABLES [facility]/State/ZIP Code Phone Number Performing [place] [address] [facility] [facility] AND [address] [facility] LAB MEDICINE * CT HEAD WO CONTRAST (10/24/2022 10:57 PM DISTRIBUTOR OPERATOR) Modality Anatomical Region Laterality Computed Tomography Head Anatomical Location / Laterality Collection Method / Volume Eva ection Time Received Time Specimen (Source) 10/24/2022 11:02 PM DISTRIBUTOR OPERATOR Addenda Addendum by Gee Page MD on 10/24/2022 11:22 PM DISTRIBUTOR OPERATOR Finalized by Gee Page MD, PhD on 10/24/2022 11:16 PM. Dictated by Cayden Cardona MD on 10/24/2022 11:02 PM.Addendum: Dr. Cardona discussed these findings with Dr. Rocha by telephone at 11:18 PM on 10/24/2022. Approved by Cayden Cardona MD on 10/24/2022 11:18 PM By my electronic signature, I attest that I have personally reviewed the images for this examination and formulated the interpretations and opinions expressed in this report Finalized by Gee Page MD, PhD on 10/24/2022 11:18 PM. Dictated by Cayden Cardona MD on 10/24/2022 11:17 PM. Impressions 10/24/2022 11:16 PM DISTRIBUTOR OPERATOR 1. Development of a moderate-sized hyp odensity within the posterior medial occipitotemporal lobe likely representing a evolving late subacute right GENERATOR ASSEMBLER infarct. 2. New hypodensities within the mixed density subdural hematoma along the right cerebral convexity, likely represent interval bleeding. The subdural hematoma is stable in size producing stable mass effect resulting in 6 mm of leftward midline shift. No descending herniation or hydrocephalus. 3. Stable mild patchy supratentorial w carlita matter hypodensities, likely sequelae of chronic microvascular ischemic change. 4. Tiny low-density is now present etta ng the lateral right cerebellum likely interval small lacunar type infarct. 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 TECHNIQUE: Multiple contiguous axial images were obtained of the brain without intravenous contrast. COMPARISON: CT head 10/12/2022. FINDINGS: Gee Page MD, PhD has personally reviewed these images and formulated the interpretations and opinions expressed in this report. Right cerebral convex to the mixed density subdural hematoma with increase in conspicuity of hyperdense components, for example on coronal image 49. Subdural hematoma is similar in size measuring 0.9 cm on coronal image 35, previously 0.9 cm when measured similarly. There is similar mass effect on the right cerebral hemisphere producing 6 mm of leftward midline shift. The right lateral ventricle remains partially effaced. The left lateral ventricle is nondilated. No descending herniation. Development of a moderate-sized area of hypodensity within the posteromedial occipitotemporal lobe (series 303 image 28). Tiny low-density is now present along the right lateral cerebellum. The ventricles and subarachnoid spaces are otherwise normal in size and configuration. Stable mild patchy supratentorial white matter hypodensities. Dilated perivascular spaces along the inferior lentiform nuclei. The estrada white matter interfaces are otherwise maintained. The basal cisterns are patent. The mastoid air cells and visualized paranasal sinuses are well-aerated. Bilateral lens replacements. 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 TECHNIQUE: Multiple contiguous axial images were obtained of the brain without intravenous contrast. COMPARISON: CT head 10/12/2022. FINDINGS: Gee Page MD, PhD has personally reviewed these images and formulated the interpretations and opinions expressed in this report. Right cerebral convex to the mixed density subdural hematoma with increase in conspicuity of hyperdense components, for example on coronal image 49. Subdural hematoma is similar in size measuring 0.9 cm on coronal image 35, previously 0.9 cm when measured similarly. There is similar mass effect on the right cerebral hemisphere producing 6 mm of leftward midline shift. The right lateral ventricle remains partially effaced. The left lateral ventricle is nondilated. No descending herniation. Development of a moderate-sized area of hypodensity within the posteromedial occipitotemporal lobe (series 303 image 28). Tiny low-density is now present along the right lateral cerebellum. The ventricles and subarachnoid spaces are otherwise normal in size and configuration. Stable mild patchy supratentorial white matter hypodensities. Dilated perivascular spaces along the inferior lentiform nuclei. The estrada white matter interfaces are otherwise maintained. The basal cisterns are patent. The mastoid air cells and visualized paranasal sinuses are well-aerated. Bilateral lens replacements. IMPRESSION 1. Development of a moderate-sized hypo density within the posterior medial occipitotemporal lobe likely representing a evolving late subacute right GENERATOR ASSEMBLER infarct. 2. New hypodensities within the mixed d ensity subdural hematoma along the right cerebral convexity, likely represent interval bleeding. The subdural hematoma is stable in size producing stable mass effect resulting in 6 mm of leftward midline shift. No descending herniation or hydrocephalus. 3. Stable mild patchy supratentorial wh ite matter hypodensities, likely sequelae of chronic microvascular ischemic change. 4. Tiny low-density is now present tarik g the lateral right cerebellum likely interval small lacunar type infarct. By my electronic signature, I attest that I have personally reviewed the images for this examination and formulated the interpretations and opinions expressed in this report Rigoberto Gomez CT ORDERABLES [facility] * ECG 12-LEAD (10/24/2022 10:25 PM DISTRIBUTOR OPERATOR) Pathologist Signature Component Value Ref Test Method Analysis Performed A t Range Time VENTRICULAR RATE 67 BPM GE MUSE P-R INTERVAL 182 ms GE MUSE QRS DURATION 104 ms GE MUSE Q-T INTERVAL 434 ms GE MUSE QTC CALCULATION 458 ms GE MUSE (BAZETT) P AXIS 72 degrees GE MUSE R AXIS -21 degrees GE MUSE T AXIS 78 degrees GE MUSE Anatomical Location / Laterality Collection Method / Volume Eva ection Time Received Time Specimen (Source) 10/24/2022 10:25 PM DISTRIBUTOR OPERATOR 10/27/20 7:25 PM DISTRIBUTOR OPERATOR Impressions GE MUSE - 10/27/2022 7:25 PM DISTRIBUTOR OPERATOR Normal sinus rhythm Minimal voltage criteria for LVH, may be normal variant ( Juan product ) Anterior infarct , age undetermined Abnormal ECG When compared with ECG of 12-OCT-2022 18:47, Anterior infarct is now present ST no longer depressed in Lateral leads Confirmed by Ricardo Sparrow ([id number]) on 10/27/2022 7:25:55 PM Narrative Procedure Note Ricardo Sparrow MD - 10/27/2022 IMPRESSION Normal sinus rhythm Minimal voltage criteria for LVH, may be normal variant ( Juan product ) Anterior infarct , age undetermined Abnormal ECG When compared with ECG of 12-OCT-2022 18:47, Anterior infarct is now present ST no longer depressed in Lateral leads Confirmed by Ricardo Sparrow ([id number]) on 10/27/2022 7:25:55 PM Rigoberto Gomez ECG ORDERABLES [facility] City/State/ZIP Code Phone Number Performing Address Organization [facility] * CHEST SINGLE VIEW (10/24/2022 9:50 PM DISTRIBUTOR OPERATOR) Modality Anatomical Region Laterality Computed Radiography CHEST Anatomical Location / Laterality Collection Method / Volume Eva ection Time Received Time Specimen (Source) 10/24/2022 10:16 PM DISTRIBUTOR OPERATOR Impressions 10/24/2022 10:18 PM DISTRIBUTOR OPERATOR Patchy groundglass opacity scattered throughout both lungs concerning for diffuse infectious etiology versus pulmonary edema. Finalized by Gee Page MD, PhD on 10/24/2022 10:18 PM. Dictated by Gee Page MD, PhD on 10/24/2022 10:16 PM. Narrative 10/24/2022 10:18 PM DISTRIBUTOR OPERATOR CHEST SINGLE VIEW Clinical indication: concern for infection. Prior studies: None Findings: The heart size normal. Ill-defined ground glass opacities are present scattered throughout both lungs. No lobar consolidation or pleural effusion. Streaky opacities noted in the lateral right midlung. No acute osseous abnormality. Procedure Note Gee Page MD - 10/24/2022 CHEST SINGLE VIEW Clinical indication: concern for infection. Prior studies: None Findings: The heart size normal. Ill-defined ground glass opacities are present scattered throughout both lungs. No lobar consolidation or pleural effusion. Streaky opacities noted in the lateral right midlung. No acute osseous abnormality. IMPRESSION Patchy groundglass opacity scattered throughout both lungs concerning for diffuse infectious etiology versus pulmonary edema. Finalized by Gee Page MD, PhD on 10/24/2022 10:18 PM. Dictated by Gee Page MD, PhD on 10/24/2022 10:16 PM. Rigoberto N DIAGNOSTIC IMAGING ORDERABL CRISTIAN Grajeda MD * POC GLUCOSE (10/24/2022 9:40 PM DISTRIBUTOR OPERATOR) Pathologist Signature Component Value Ref Test Method Analysis Performed A t Range Time Glucose, POC 98 70 - 100 10/24/2022 [facility] DE[facility] PA TH AND MG/DL 9:42 PM LAB MEDICINE POC DISTRIBUTOR OPERATOR Anatomical Location / Laterality Collection Method / Volume Eva ection Time Received Time Specimen (Source) 10/24/2022 9:40 PM DISTRIBUTOR OPERATOR 10/24/20 9:42 PM DISTRIBUTOR OPERATOR Unknown Md Unknown OTHER LABORATORY City/State/ZIP Code Phone Number Performing Address Organization [place], [place] [id number] [place], [place] [id number] PATH AND [address] [facility] LAB MEDICINE POC * TSH WITH FREE T4 REFLEX (10/24/2022 9:38 PM DISTRIBUTOR OPERATOR) Pathologist Signature Component Value Ref Test Method Analysis Performed A t Range Time TSH 1.43 0.35 - [facility] 5.00 10:32 PM LAB MEDICINE MCU/ML DISTRIBUTOR OPERATOR Anatomical Location / Laterality Collection Method / Volume Eva ection Time Received Time Specimen (Source) BLOOD / Unknown 10/24/2022 9:38 PM DISTRIBUTOR OPERATOR 10/24/20 9:47 PM DISTRIBUTOR OPERATOR Rigoberto N LABORATORY ORDERABLES [facility] City/State/ZIP Code Phone Number Performing Address Organization [place], [place] [id number] [place], [place] [id number] PATH AND [address] [facility] LAB MEDICINE * CLEAR TOP EXTRA URINE TUBE (10/24/2022 9:38 PM DISTRIBUTOR OPERATOR) Anatomical Location / Laterality Collection Method / Volume Eva ection Time Received Time Specimen (Source) URINE SPECIMEN / Unknown 10/24/2022 9:38 PM DISTRIBUTOR OPERATOR 10/24/2022 9:50 PM DISTRIBUTOR OPERATOR Rigoberto N URINE ORDERABLES [facility]/State/ZIP Code Phone Number Performing Address Organization [place], [place] [id number] [place], [place] [id number] PATH AND [address] [facility] LAB MEDICINE * UA LEOS TOP TUBE (10/24/2022 9:38 PM DISTRIBUTOR OPERATOR) Pathologist Signature Component Value Ref Test Method Analysis Performed A t Range Time UA Reflex Culture Criteria for [facility] AND reflex to 11:34 AM LAB MEDICINE culture are DISTRIBUTOR OPERATOR WBC>10, Positive Nitrite, and/or >=+1 leukocytes. If quantity is not sufficient, an addendum will follow. Anatomical Location / Laterality Collection Method / Volume Eva ection Time Received Time Specimen (Source) URINE SPECIMEN / Unknown 10/24/2022 9:38 PM DISTRIBUTOR OPERATOR 10/24/2022 9:50 PM DISTRIBUTOR OPERATOR Rigoberto N URINE ORDERABLES [facility]/State/ZIP Code Phone Number Performing [place] [address] [facility] DEPT PATH AND [address] [facility] LAB MEDICINE * URINALYSIS MICROSCOPIC REFLEX TO CULTURE (10/24/2022 9:38 PM DISTRIBUTOR OPERATOR) Pathologist Signature Component Value Ref Test Method Analysis Performed A t Range Time WBCs,UA 0-2 0 - 2 10/24/2022 [facility] DEPT PAT H AND /HPF 10:20 PM LAB MEDICINE DISTRIBUTOR OPERATOR RBCs,UA PACKED 0 - 3 10/24/2022 [facility] DEPT PAT H AND /HPF 10:20 PM LAB MEDICINE DISTRIBUTOR OPERATOR Comment,UA Criteria for 10/24/2022 [facility] DEPT PATH AND reflex to 10:20 PM LAB MEDICINE culture are DISTRIBUTOR OPERATOR WBC>10, Positive Nitrite, and/or >=+1 leukocytes. If quantity is not sufficient, an addendum will follow. Squamous Epithelial 0-2 0 - 5 10/24/2022 [facility] DEPT PATH AND Cells 10:20 PM LAB MEDICINE DISTRIBUTOR OPERATOR Anatomical Location / Laterality Collection Method / Volume Eva ection Time Received Time Specimen (Source) URINE SPECIMEN / Unknown 10/24/2022 9:38 PM DISTRIBUTOR OPERATOR 10/24/2022 9:50 PM DISTRIBUTOR OPERATOR Rigoberto N URINE ORDERABLES [facility] City/State/ZIP Code Phone Number Performing [place] [address] [facility] DEPT PATH AND [address] [facility] LAB [facility] * (ABNORMAL) URINALYSIS DIPSTICK REFLEX TO CULTURE (10/24/2022 9:38 PM DISTRIBUTOR OPERATOR) Pathologist Signature Component Value Ref Test Method Analysis Performed A t Range Time Color,UA YELLOW 10/24/2022 [facility] DEPT PATH AND 10:20 PM LAB MEDICINE DISTRIBUTOR OPERATOR Turbidity,UA CLEAR CLEAR-CL 10/24/2022 [facility] DEPT PA TH AND EAR 10:20 PM LAB MEDICINE DISTRIBUTOR OPERATOR Specific 1.028 1.005 - 10/24/2022 [facility] DEPT PAT H AND [place]-Urine 1.030 10:20 PM LAB MEDICINE DISTRIBUTOR OPERATOR Comment: NOTE NEW REFERENCE RANGES pH,UA 5.0 5.0 - 10/24/2022 [facility] DEPT PAT H AND 8.0 10:20 PM LAB MEDICINE DISTRIBUTOR OPERATOR Protein,UA 2+ (A) NEG-NEG 10/24/2022 [facility] DEPT PAT H AND 10:20 PM LAB MEDICINE DISTRIBUTOR OPERATOR Glucose,UA NEG NEG-NEG 10/24/2022 [facility] DEPT PAT H AND 10:20 PM LAB MEDICINE DISTRIBUTOR OPERATOR Ketones,UA NEG NEG-NEG 10/24/2022 [facility] DEPT PAT H AND 10:20 PM LAB MEDICINE DISTRIBUTOR OPERATOR Bilirubin,UA NEG NEG-NEG 10/24/2022 [facility] DEPT PA TH AND 10:20 PM LAB MEDICINE DISTRIBUTOR OPERATOR Blood,UA 3+ (A) NEG-NEG 10/24/2022 [facility] DEPT PAT H AND 10:20 PM LAB MEDICINE DISTRIBUTOR OPERATOR Urobilinogen,UA NORMAL NORM-NOR 10/24/2022 [facility] DEPT PATH AND MAL 10:20 PM LAB MEDICINE DISTRIBUTOR OPERATOR Nitrite,UA NEG NEG-NEG 10/24/2022 [facility] DEPT PAT H AND 10:20 PM LAB MEDICINE DISTRIBUTOR OPERATOR Leukocytes,UA NEG NEG-NEG 10/24/2022 [facility] DEPT P ATH AND 10:20 PM LAB MEDICINE DISTRIBUTOR OPERATOR Urine Ascorbic Acid, NEG NEG-NEG 10/24/2022 [facility] DEPT PATH AND UA 10:20 PM LAB MEDICINE DISTRIBUTOR OPERATOR Anatomical Location / Laterality Collection Method / Volume Eva ection Time Received Time Specimen (Source) URINE SPECIMEN / Unknown 10/24/2022 9:38 PM DISTRIBUTOR OPERATOR 10/24/2022 9:50 PM DISTRIBUTOR OPERATOR Rigoberto N URINE ORDERABLES [facility]/State/ZIP Code Phone Number Performing [place] [address] [facility] PATH AND [address] LAB MEDICINE * MAGNESIUM (10/24/2022 9:38 PM DISTRIBUTOR OPERATOR) Pathologist Signature Component Value Ref Test Method Analysis Performed A t Range Time Magnesium 2.2 1.6 - 10/24/2022 [facility] DEPT PAT H AND 2.6 10:20 PM LAB MEDICINE mg/dL DISTRIBUTOR OPERATOR Anatomical Location / Laterality Collection Method / Volume Eva ection Time Received Time Specimen (Source) BLOOD / Unknown 10/24/2022 9:38 PM DISTRIBUTOR OPERATOR 10/24/20 9:47 PM DISTRIBUTOR OPERATOR Rigoberto Gomez LABORATORY ORDERABLES [facility]/State/ZIP Code Phone Number Performing [place] [address] [facility] PATH AND [address] LAB MEDICINE * PROTIME INR (PT) (10/24/2022 9:38 PM DISTRIBUTOR OPERATOR) Pathologist Signature Component Value Ref Test Method Analysis Performed A t Range Time Protime 13.5 9.5 - 10/24/2022 [facility] DEPT PAT H AND 14.2 SEC 10:11 PM LAB MEDICINE DISTRIBUTOR OPERATOR INR 1.2 0.8 - 10/24/2022 [facility] DEPT PAT H AND 1.2 10:11 PM LAB MEDICINE DISTRIBUTOR OPERATOR Anatomical Location / Laterality Collection Method / Volume Eva ection Time Received Time Specimen (Source) BLOOD / Unknown 10/24/2022 9:38 PM DISTRIBUTOR OPERATOR 10/24/20 9:47 PM DISTRIBUTOR OPERATOR Rigoberto Gomez LABORATORY ORDERABLES [facility] City/State/ZIP Code Phone Number Performing [place] [address] [facility] DEPT PATH AND [address] [facility] LAB MEDICINE * (ABNORMAL) COMPREHENSIVE METABOLIC PANEL (10/24/2022 9:38 PM DISTRIBUTOR OPERATOR) Pathologist Signature Component Value Ref Test Method Analysis Performed A t Range Time Sodium 141 137 - 10/24/2022 [facility] DEPT PAT H AND 147 10:20 PM LAB MEDICINE MMOL/L DISTRIBUTOR OPERATOR Potassium 3.9 3.5 - 10/24/2022 [facility] DEPT PAT H AND 5.1 10:20 PM LAB MEDICINE MMOL/L DISTRIBUTOR OPERATOR Chloride 105 98 - 110 10/24/2022 [facility] DEPT PAT H AND MMOL/L 10:20 PM LAB MEDICINE DISTRIBUTOR OPERATOR Glucose 95 70 - 100 10/24/2022 [facility] DEPT PAT H AND MG/DL 10:20 PM LAB MEDICINE DISTRIBUTOR OPERATOR Blood Urea Nitrogen 27 (H) 7 - 25 10/24/2022 [facility] DEPT PATH AND MG/DL 10:20 PM LAB MEDICINE DISTRIBUTOR OPERATOR Creatinine 1.01 0.4 - 10/24/2022 [facility] DEPT PAT H AND 1.24 10:20 PM LAB MEDICINE MG/DL DISTRIBUTOR OPERATOR Calcium 9.3 8.5 - 10/24/2022 [facility] DEPT PAT H AND 10.6 10:20 PM LAB MEDICINE MG/DL DISTRIBUTOR OPERATOR Total Protein 7.1 6.0 - 10/24/2022 [facility] DEPT P ATH AND 8.0 G/DL 10:20 PM LAB MEDICINE DISTRIBUTOR OPERATOR Total Bilirubin 0.4 0.3 - 10/24/2022 [facility] DEPT PATH AND 1.2 10:20 PM LAB MEDICINE MG/DL DISTRIBUTOR OPERATOR Albumin 4.0 3.5 - 10/24/2022 [facility] DEPT PAT H AND 5.0 G/DL 10:20 PM LAB MEDICINE DISTRIBUTOR OPERATOR Alk Phosphatase 105 25 - 110 10/24/2022 [facility] DEPT PATH AND U/L 10:20 PM LAB MEDICINE DISTRIBUTOR OPERATOR AST (SGOT) 65 (H) 7 - 40 10/24/2022 [facility] DEPT PAT H AND U/L 10:20 PM LAB MEDICINE DISTRIBUTOR OPERATOR CO2 26 21 - 30 10/24/2022 [facility] DEPT PAT H AND MMOL/L 10:20 PM LAB MEDICINE DISTRIBUTOR OPERATOR ALT (SGPT) 63 (H) 7 - 56 10/24/2022 [facility] DEPT PAT H AND U/L 10:20 PM LAB MEDICINE DISTRIBUTOR OPERATOR Anion Gap 10 3 - 12 10/24/2022 [facility] DEPT PAT H AND 10:20 PM LAB MEDICINE DISTRIBUTOR OPERATOR eGFR >60 >60 10/24/2022 [facility] DEPT PAT H AND mL/min 10:20 PM LAB MEDICINE DISTRIBUTOR OPERATOR Comment: eGFR calculated using the CKD-EPIcr_R equation Anatomical Location / Laterality Collection Method / Volume Eva ection Time Received Time Specimen (Source) BLOOD / Unknown 10/24/2022 9:38 PM DISTRIBUTOR OPERATOR 10/24/20 9:47 PM DISTRIBUTOR OPERATOR Rigoberto Gomez LABORATORY ORDERABLES [place] City/State/ZIP Code Phone Number Performing [place] [address] [facility] DEPT PATH AND [address] [facility] LAB MEDICINE * (ABNORMAL) CBC AND DIFF (10/24/2022 9:38 PM DISTRIBUTOR OPERATOR) Pathologist Signature Component Value Ref Test Method Analysis Performed A t Range Time White Blood Cells 7.5 4.5 - 10/24/2022 [facility] DE PT PATH AND 11.0 9:56 PM LAB MEDICINE K/UL DISTRIBUTOR OPERATOR RBC 3.71 (L) 4.4 - 10/24/2022 [facility] DEPT PAT H AND 5.5 M/UL 9:56 PM LAB MEDICINE DISTRIBUTOR OPERATOR Hemoglobin 12.5 (L) 13.5 - 10/24/2022 [facility] DEPT PAT H AND 16.5 9:56 PM LAB MEDICINE GM/DL DISTRIBUTOR OPERATOR Hematocrit 37.4 (L) 40 - 50 10/24/2022 [facility] DEPT PAT H AND % 9:56 PM LAB MEDICINE DISTRIBUTOR OPERATOR MCV 101.0 (H) 80 - 100 10/24/2022 [facility] DEPT PAT H AND FL 9:56 PM LAB MEDICINE DISTRIBUTOR OPERATOR MCH 33.6 26 - 34 10/24/2022 [facility] DEPT PAT H AND PG 9:56 PM LAB MEDICINE DISTRIBUTOR OPERATOR MCHC 33.3 32.0 - 10/24/2022 [facility] DEPT PAT H AND 36.0 9:56 PM LAB MEDICINE G/DL DISTRIBUTOR OPERATOR RDW 14.4 11 - 15 10/24/2022 [facility] DEPT PAT H AND % 9:56 PM LAB MEDICINE DISTRIBUTOR OPERATOR Platelet Count 116 (L) 150 - 10/24/2022 [facility] DEPT PATH AND 400 K/UL 9:56 PM LAB MEDICINE DISTRIBUTOR OPERATOR MPV 9.2 7 - 11 10/24/2022 [facility] DEPT PAT H AND FL 9:56 PM LAB MEDICINE DISTRIBUTOR OPERATOR Neutrophils 73 41 - 77 10/24/2022 [facility] DEPT PAT H AND % 9:56 PM LAB MEDICINE DISTRIBUTOR OPERATOR Lymphocytes 12 (L) 24 - 44 10/24/2022 [facility] DEPT PAT H AND % 9:56 PM LAB MEDICINE DISTRIBUTOR OPERATOR Monocytes 11 4 - 12 % 10/24/2022 [facility] DEPT PAT H AND 9:56 PM LAB MEDICINE DISTRIBUTOR OPERATOR Eosinophils 3 0 - 5 % 10/24/2022 [facility] DEPT PAT H AND 9:56 PM LAB MEDICINE DISTRIBUTOR OPERATOR Basophils 1 0 - 2 % 10/24/2022 [facility] DEPT PAT H AND 9:56 PM LAB MEDICINE DISTRIBUTOR OPERATOR Absolute Neutrophil 5.48 1.8 - 10/24/2022 [facility] DEPT PATH AND Count 7.0 K/UL 9:56 PM LAB MEDICINE DISTRIBUTOR OPERATOR Absolute Lymph Count 0.89 (L) 1.0 - 10/24/2022 [facility] DEPT PATH AND 4.8 K/UL 9:56 PM LAB MEDICINE DISTRIBUTOR OPERATOR Absolute Monocyte 0.85 (H) 0 - 0.80 10/24/2022 [facility] DE PT PATH AND Count K/UL 9:56 PM LAB MEDICINE DISTRIBUTOR OPERATOR Absolute Eosinophil 0.24 0 - 0.45 10/24/2022 [facility] DEPT PATH AND Count K/UL 9:56 PM LAB MEDICINE DISTRIBUTOR OPERATOR Absolute Basophil 0.06 0 - 0.20 10/24/2022 [facility] DE PT PATH AND Count K/UL 9:56 PM LAB MEDICINE DISTRIBUTOR OPERATOR MDW (Monocyte 20.2 <20.7 10/24/2022 [facility] DEPT P ATH AND Distribution Width) 9:56 PM LAB MEDICINE DISTRIBUTOR OPERATOR Comment: MDW greater than 20.0, together with other laboratory and clinical information, aids in the diagnosis of sepsis or increased risk of sepsis within the first 12 hours of presenting to the emergency department. MDW should not be used as a sole test to determine the absence of sepsis. Clinical performance of the MDW has not been determined in patients receiving immune stimulants, patients with alcoholism, or patients with hematologic abnormalities such as blast cells. Anatomical Location / Laterality Collection Method / Volume Eva ection Time Received Time Specimen (Source) BLOOD / Unknown 10/24/2022 9:38 PM DISTRIBUTOR OPERATOR 10/24/20 9:47 PM DISTRIBUTOR OPERATOR Rigoberto Gomez LABORATORY ORDERABLES [place] City/State/ZIP Code Phone Number Performing [place] [address] [facility] DEPT PATH AND [address] [facility] LAB MEDICINE * CT HEAD EXTERNAL IMAGING (10/24/2022 12:00 AM DISTRIBUTOR OPERATOR) Anatomical Location / Laterality Collection Method / Volume Eva ection Time Received Time Specimen (Source) Narrative Scheduling, Silent - 10/28/2022 8:29 AM DISTRIBUTOR OPERATOR This order has been auto finalized and does not contain a result. Radiologist RADIOLOGY EXTERNAL ORDERABL ES Outpatient * TELEMETRY STRIPS-SCAN (10/24/2022 12:00 AM DISTRIBUTOR OPERATOR) Narrative 10/24/2022 12:00 AM DISTRIBUTOR OPERATOR Ordered by an unspecified provider. Scanned Document PROCEDURE DUMMY ORDERS * TELEMETRY STRIPS-SCAN (10/24/2022 12:00 AM DISTRIBUTOR OPERATOR) Narrative 10/24/2022 12:00 AM DISTRIBUTOR OPERATOR Ordered by an unspecified provider. Scanned Document PROCEDURE DUMMY ORDERS * TELEMETRY STRIPS-SCAN (10/24/2022 12:00 AM DISTRIBUTOR OPERATOR) Narrative 10/24/2022 12:00 AM DISTRIBUTOR OPERATOR Ordered by an unspecified provider. Scanned Document PROCEDURE DUMMY ORDERS * TELEMETRY STRIPS-SCAN (10/24/2022 12:00 AM DISTRIBUTOR OPERATOR) Narrative 10/24/2022 12:00 AM DISTRIBUTOR OPERATOR Ordered by an unspecified provider. Scanned Document PROCEDURE DUMMY ORDERS * TELEMETRY STRIPS-SCAN (10/24/2022 12:00 AM DISTRIBUTOR OPERATOR) Narrative 10/24/2022 12:00 AM DISTRIBUTOR OPERATOR Ordered by an unspecified provider. Scanned Document PROCEDURE DUMMY ORDERS * TELEMETRY STRIPS-SCAN (10/24/2022 12:00 AM DISTRIBUTOR OPERATOR) Narrative 10/24/2022 12:00 AM DISTRIBUTOR OPERATOR Ordered by an unspecified provider. Scanned Document PROCEDURE DUMMY ORDERS * TELEMETRY STRIPS-SCAN (10/24/2022 12:00 AM DISTRIBUTOR OPERATOR) Narrative 10/24/2022 12:00 AM DISTRIBUTOR OPERATOR Ordered by an unspecified provider. Scanned Document PROCEDURE DUMMY ORDERS * TELEMETRY STRIPS-SCAN (10/24/2022 12:00 AM DISTRIBUTOR OPERATOR) Narrative 10/24/2022 12:00 AM DISTRIBUTOR OPERATOR Ordered by an unspecified provider. Scanned Document PROCEDURE DUMMY ORDERS * TELEMETRY STRIPS-SCAN (10/24/2022 12:00 AM DISTRIBUTOR OPERATOR) Narrative 10/24/2022 12:00 AM DISTRIBUTOR OPERATOR Ordered by an unspecified provider. Scanned Document PROCEDURE DUMMY ORDERS * TELEMETRY STRIPS-SCAN (10/24/2022 12:00 AM DISTRIBUTOR OPERATOR) Narrative 10/24/2022 12:00 AM DISTRIBUTOR OPERATOR Ordered by an unspecified provider. Scanned Document PROCEDURE DUMMY ORDERS * TELEMETRY STRIPS-SCAN (10/24/2022 12:00 AM DISTRIBUTOR OPERATOR) Narrative 10/24/2022 12:00 AM DISTRIBUTOR OPERATOR Ordered by an unspecified provider. 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) Cerebrovascular accident (CVA), unspeci fied mechanism (HCC) Transaminitis Nonspecific elevation of levels of saldivar saminase or lactic acid dehydrogenase (LDH) Mass of right lung Lung mass Swelling, mass, or lump in chest SDH (subdural hematoma) Subdural hemorrhage Essential tremor Essential and other specified forms of tremor Acute arterial ischemic stroke, multifo milagro, multiple vascular territories (HCC) Unspecified cerebral artery occlusion w ith cerebral infarction Chronic subdural hematoma (HCC) Subdural hemorrhage Chronic cerebral ischemia Other generalized ischemic cerebrovascu lar disease Intracranial vascular stenosis Cerebrovascular disease, unspecified 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 cerebral 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 tremor Decreased vibratory sense Disturbance of skin sensation Essential tremor Essential and other specified forms of tremor PAD (peripheral artery disease) (HCC) Peripheral vascular disease, unspecifie d Delirium Other alteration of consciousness Thrombocytopenia (HCC) Thrombocytopenia, unspecified Primary hypertension Unspecified essential hypertension 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 Chronic low back pain Lumbago documented in this encounter Admitting Diagnoses Diagnosis SDH (subdural hematoma) Subdural hemorrhage documented in this encounter Administered Medications Action Date Dose Rate Site Medication Order MAR Action 11/05/2022 7:01 AM DISTRIBUTOR OPERATOR 1,000 mg acetaminophen (TYLENOL EXTRA STRENGTH) Given tablet 1,000 mg 1,000 mg, Oral, EVERY 8 HOURS, First dose (after last modification) on Fri10/30/22 at 0600, Until Discontinued, TOTAL ACETAMINOPHEN DOSE NOT TO EXCEED 4GM DAILY, Admission/Obs/Extended Recovery 1,000 mg Given 11/04/2022 9:21 PM DISTRIBUTOR OPERATOR 1,000 mg Given 11/03/2022 8:31 PM DISTRIBUTOR OPERATOR 1,000 mg Given 11/03/2022 2:32 PM DISTRIBUTOR OPERATOR 1,000 mg Given 11/02/2022 8:43 PM DISTRIBUTOR OPERATOR 1,000 mg Given 11/02/2022 2:22 PM DISTRIBUTOR OPERATOR 1,000 mg Given 11/02/2022 5:21 AM DISTRIBUTOR OPERATOR 1,000 mg Given 11/01/2022 9:06 PM DISTRIBUTOR OPERATOR 1,000 mg Given 10/31/2022 9:02 PM DISTRIBUTOR OPERATOR 1,000 mg Given 10/31/2022 2:03 PM DISTRIBUTOR OPERATOR 1,000 mg Given 10/31/2022 5:53 AM DISTRIBUTOR OPERATOR 1,000 mg Given 10/30/2022 9:48 PM DISTRIBUTOR OPERATOR 1,000 mg Given 10/30/2022 2:35 PM DISTRIBUTOR OPERATOR 10/25/2022 1:14 PM DISTRIBUTOR OPERATOR 650 mg acetaminophen (TYLENOL) tablet 650 mg Given 650 mg, Oral, EVERY 4 HOURS PRN, Starting on Fri10/25/22 at 0055, Until Fri10/25/22 at 1440, Temp > ..., 38.3 C, TOTAL ACETAMINOPHEN DOSE NOT TO EXCEED 4GM DAILY, Admission/Obs/Extende d Recovery 650 mg Given 10/25/2022 7:41 AM DISTRIBUTOR OPERATOR 650 mg Given 10/25/2022 1:54 AM DISTRIBUTOR OPERATOR 10/29/2022 8:42 PM DISTRIBUTOR OPERATOR 650 mg acetaminophen (TYLENOL) tablet 650 mg Given 650 mg, Oral, EVERY 6 HOURS WHILE AWAKE, First dose (after last modification) on Fri10/25/22 at 2100, Until Discontinued, TOTAL ACETAMINOPHEN DOSE NOT TO EXCEED 4GM DAILY, Admission/Obs/Extended Recovery 650 mg Given 10/29/2022 4:07 PM DISTRIBUTOR OPERATOR 650 mg Given 10/29/2022 8:42 AM DISTRIBUTOR OPERATOR 650 mg Given 10/28/2022 8:11 PM DISTRIBUTOR OPERATOR 650 mg Given 10/28/2022 2:18 PM DISTRIBUTOR OPERATOR 650 mg Given 10/27/2022 9:44 PM DISTRIBUTOR OPERATOR 650 mg Given 10/27/2022 2:14 PM DISTRIBUTOR OPERATOR 650 mg Given 10/27/2022 8:03 AM DISTRIBUTOR OPERATOR 650 mg Given 10/26/2022 8:22 PM DISTRIBUTOR OPERATOR 650 mg Given 10/26/2022 3:39 PM DISTRIBUTOR OPERATOR 650 mg Given 10/26/2022 9:39 AM DISTRIBUTOR OPERATOR 650 mg Given 10/25/2022 8:26 PM DISTRIBUTOR OPERATOR 11/05/2022 9:13 AM DISTRIBUTOR OPERATOR 81 mg aspirin EC tablet 81 mg Given 81 mg, Oral, DAILY, First dose on Fri11/01/22 at 0900, Until Discontinued 81 mg Given 11/04/2022 9:28 AM DISTRIBUTOR OPERATOR 81 mg Given 11/03/2022 8:57 AM DISTRIBUTOR OPERATOR 81 mg Given 11/02/2022 9:17 AM DISTRIBUTOR OPERATOR 81 mg Given 11/01/2022 10:33 AM DISTRIBUTOR OPERATOR 11/05/2022 9:13 AM DISTRIBUTOR OPERATOR 80 mg atorvastatin (LIPITOR) tablet 80 mg Given 80 mg, Oral, DAILY, First dose on Fri10/25/22 at 0900, Until Discontinued, Admission/Obs/Extended Recovery 80 mg Given 11/04/2022 9:28 AM DISTRIBUTOR OPERATOR 80 mg Given 11/03/2022 8:57 AM DISTRIBUTOR OPERATOR 80 mg Given 11/02/2022 9:17 AM DISTRIBUTOR OPERATOR 80 mg Given 11/01/2022 10:33 AM DISTRIBUTOR OPERATOR 80 mg Given 10/31/2022 8:55 AM DISTRIBUTOR OPERATOR 80 mg Given 10/30/2022 8:13 AM DISTRIBUTOR OPERATOR 80 mg Given 10/29/2022 8:42 AM DISTRIBUTOR OPERATOR 80 mg Given 10/28/2022 2:18 PM DISTRIBUTOR OPERATOR 80 mg Given 10/27/2022 8:04 AM DISTRIBUTOR OPERATOR 80 mg Given 10/26/2022 9:39 AM DISTRIBUTOR OPERATOR 80 mg Given 10/25/2022 9:19 AM DISTRIBUTOR OPERATOR 10/28/2022 2:18 PM DISTRIBUTOR OPERATOR 10 mg bisacodyL (DULCOLAX) rectal suppository Given 10 mg 10 mg, Rectal, ONCE, 1 dose, On 10/28/22 at 1345, Hold for loose stools 11/04/2022 9:28 AM DISTRIBUTOR OPERATOR 12.5 mg carvediloL (COREG) tablet 12.5 mg Given 12.5 mg, Oral, TWICE DAILY, First dose on Martine 10/31/22 at 0900, Until Discontinued, Hold for heart rate < 60 bpm or systolic BP < 100 12.5 mg Given 11/03/2022 8:57 AM DISTRIBUTOR OPERATOR 12.5 mg Given 11/02/2022 8:43 PM DISTRIBUTOR OPERATOR 12.5 mg Given 11/02/2022 9:17 AM DISTRIBUTOR OPERATOR 12.5 mg Given 11/01/2022 9:06 PM DISTRIBUTOR OPERATOR 12.5 mg Given 11/01/2022 10:33 AM DISTRIBUTOR OPERATOR 12.5 mg Given 10/31/2022 9:01 PM DISTRIBUTOR OPERATOR 12.5 mg Given 10/31/2022 8:55 AM DISTRIBUTOR OPERATOR 11/02/2022 8:43 PM DISTRIBUTOR OPERATOR 10 mL dextromethorphan/guaiFENesin Given (ROBITUSSIN-DM) oral syrup 10 mL 10 mL, Oral, EVERY 6 HOURS PRN, Starting on 10/26/22 at 0652, Until 11/05/22 at 1437, Cough, Delivers Guaifenesin 100mg and Dextromethorphan 10mg per 5ml 10 mL Given 10/27/2022 11:17 AM DISTRIBUTOR OPERATOR 10 mL Given 10/26/2022 11:31 PM DISTRIBUTOR OPERATOR 10 mL Given 10/26/2022 5:32 PM DISTRIBUTOR OPERATOR 11/05/2022 9:13 AM DISTRIBUTOR OPERATOR 100 mg docusate (COLACE) capsule 100 mg Given 100 mg, Oral, TWICE DAILY, First dose o n Fri10/25/22 at 0100, Until Discontinued, Hold for loose stools, Admission/Obs/Extended Recovery 100 mg Given 11/03/2022 8:32 PM DISTRIBUTOR OPERATOR 100 mg Given 11/03/2022 8:57 AM DISTRIBUTOR OPERATOR 100 mg Given 11/02/2022 8:43 PM DISTRIBUTOR OPERATOR 100 mg Given 11/02/2022 9:17 AM DISTRIBUTOR OPERATOR 100 mg Given 11/01/2022 9:06 PM DISTRIBUTOR OPERATOR 100 mg Given 10/31/2022 8:55 AM DISTRIBUTOR OPERATOR 100 mg Given 10/30/2022 9:48 PM DISTRIBUTOR OPERATOR 100 mg Given 10/30/2022 8:13 AM DISTRIBUTOR OPERATOR 100 mg Given 10/29/2022 8:42 PM DISTRIBUTOR OPERATOR 100 mg Given 10/29/2022 8:42 AM DISTRIBUTOR OPERATOR 100 mg Given 10/28/2022 8:11 PM DISTRIBUTOR OPERATOR 100 mg Given 10/28/2022 2:19 PM DISTRIBUTOR OPERATOR 100 mg Given 10/27/2022 9:45 PM DISTRIBUTOR OPERATOR 100 mg Given 10/27/2022 8:03 AM DISTRIBUTOR OPERATOR 100 mg Given 10/26/2022 8:22 PM DISTRIBUTOR OPERATOR 100 mg Given 10/26/2022 9:39 AM DISTRIBUTOR OPERATOR 100 mg Given 10/25/2022 8:27 PM DISTRIBUTOR OPERATOR 100 mg Given 10/25/2022 9:19 AM DISTRIBUTOR OPERATOR 100 mg Given 10/25/2022 2:45 AM DISTRIBUTOR OPERATOR 11/04/2022 9:21 PM DISTRIBUTOR OPERATOR 40 mg Abdomina l Tissue enoxaparin (LOVENOX) syringe 40 mg Given 40 mg, Subcutaneous, DAILY, First dose on Fri11/01/22 at 0845, Until Discontinued, For patients undergoing surgery: Consult physician in advance - - enoxaparin is an anticoagulant and may need to be held for 12hr prior to surgery or invasive procedures. NOTE: This is a HIGH ALERT Medication. 40 mg Abdominal Tissue Given 11/03/2022 8:32 PM DISTRIBUTOR OPERATOR 40 mg Abdomen:LLQ Given 11/02/2022 8:43 PM DISTRIBUTOR OPERATOR 40 mg Abdomen:LLQ Given 11/01/2022 9:06 PM DISTRIBUTOR OPERATOR 40 mg Abdominal Tissue Given 11/01/2022 10:34 AM DISTRIBUTOR OPERATOR 10/26/2022 2:14 AM DISTRIBUTOR OPERATOR 1 lozenge eucalyptus-menthoL (HALLS) lozenge 1 Given lozenge 1 lozenge, Oral, EVERY 2 HOURS PRN, Starting on Fri10/25/22 at 2130, Until Fri11/05/22 at 1437, Mouth/Throat Pain 1 lozenge Given 10/26/2022 12:24 AM DISTRIBUTOR OPERATOR 11/05/2022 9:13 AM DISTRIBUTOR OPERATOR 324 mg ferrous gluconate tablet 324 mg Given 324 mg, Oral, EVERY 48 HOURS, First dos e on Fri10/30/22 at 0900, Until Discontinued, Each 324mg ferrous gluconate delivers 37.5mg elemental iron. 324 mg Given 11/03/2022 8:58 AM DISTRIBUTOR OPERATOR 324 mg Given 11/01/2022 10:36 AM DISTRIBUTOR OPERATOR 324 mg Given 10/30/2022 8:16 AM DISTRIBUTOR OPERATOR 11/05/2022 9:14 AM DISTRIBUTOR OPERATOR 2 sprays fluticasone propionate (FLONASE) nasal Given spray 2 spray 2 spray, Each Nostril, DAILY, First dos e on Fri10/25/22 at 1400, Until Discontinued 2 sprays Given 11/04/2022 9:28 AM DISTRIBUTOR OPERATOR 2 sprays Given 11/03/2022 8:59 AM DISTRIBUTOR OPERATOR 2 sprays Given 11/02/2022 9:18 AM DISTRIBUTOR OPERATOR 2 sprays Given 11/01/2022 10:35 AM DISTRIBUTOR OPERATOR 2 sprays Given 10/31/2022 8:56 AM DISTRIBUTOR OPERATOR 2 sprays Given 10/30/2022 8:14 AM DISTRIBUTOR OPERATOR 2 sprays Given 10/29/2022 8:42 AM DISTRIBUTOR OPERATOR 2 sprays Given 10/28/2022 2:19 PM DISTRIBUTOR OPERATOR 2 sprays Given 10/27/2022 8:05 AM DISTRIBUTOR OPERATOR 2 sprays Given 10/26/2022 9:41 AM DISTRIBUTOR OPERATOR 2 sprays Given 10/25/2022 4:21 PM DISTRIBUTOR OPERATOR 10/30/2022 9:57 AM DISTRIBUTOR OPERATOR 10 mg hydrALAZINE (APRESOLINE) injection 10 mg Given 10 mg, Intravenous, EVERY 6 HOURS PRN, Starting on Fri10/25/22 at 0055, Until Fri10/30/22 at 1153, Systolic Blood Pressure..., >140 mmHg or MAP >110 mmHg , Admission/Obs/Extended Recovery 10 mg Given 10/25/2022 5:54 AM DISTRIBUTOR OPERATOR 11/05/2022 4:02 AM DISTRIBUTOR OPERATOR 20 mg hydrALAZINE (APRESOLINE) tablet 20 mg Given 20 mg, Oral, EVERY 8 HOURS PRN, Starting on Martine 10/31/22 at 0751, Until Tu11/05/22 at 1437, Systolic Blood Pressure..., SBP >160 10/29/2022 7:49 PM DISTRIBUTOR OPERATOR 600 mg ibuprofen (MOTRIN) tablet 600 mg Given 600 mg, Oral, EVERY 6 HOURS PRN, Starting on 10/27/22 at 2345, Until Fri10/30/22 at 0541, Pain non-opioid: may be used alone or in combination wit h opioid analgesia, TOTAL IBUPROFEN DOSE NOT TO EXCEED 3.2GM PER DAY 600 mg Given 10/29/2022 12:45 PM DISTRIBUTOR OPERATOR 600 mg Given 10/29/2022 7:15 AM DISTRIBUTOR OPERATOR 600 mg Given 10/28/2022 9:13 PM DISTRIBUTOR OPERATOR 600 mg Given 10/28/2022 4:15 AM DISTRIBUTOR OPERATOR 600 mg Given 10/27/2022 11:54 PM DISTRIBUTOR OPERATOR 11/01/2022 9:06 PM DISTRIBUTOR OPERATOR 600 mg ibuprofen (MOTRIN) tablet 600 mg Given 600 mg, Oral, EVERY 6 HOURS PRN, Starting on Fri11/01/22 at 0744, Until 11/02/22 at 1204, Pain non-opioid: may be used alone or in combination wit h opioid analgesia, TOTAL IBUPROFEN DOSE NOT TO EXCEED 3.2GM PER DAY 10/28/2022 9:47 AM DISTRIBUTOR OPERATOR 60 mL iohexoL (OMNIPAQUE-300) 300 mg/mL Given injection 60 mL 60 mL, Intra-arterial, ONCE, 1 dose, On 10/28/22 at 1000, NOTE: This is a HIGH ALERT Medication. 10/25/2022 8:46 AM DISTRIBUTOR OPERATOR 60 mL iohexoL (OMNIPAQUE-350) 350 mg/mL Given injection 60 mL 60 mL, Intravenous, ONCE, 1 dose, On Fr i 10/25/22 at 0900, NOTE: This is a HIGH ALERT Medication. 10/26/2022 4:22 AM DISTRIBUTOR OPERATOR 70 mL iohexoL (OMNIPAQUE-350) 350 mg/mL Given injection 70 mL 70 mL, Intravenous, ONCE, 1 dose, On Sa t 10/26/22 at 0430, NOTE: This is a HIGH ALERT Medication. 10/30/2022 10:47 AM DISTRIBUTOR OPERATOR 10 mg labetaloL (NORMODYNE) injection 10 mg Given 10 mg, Intravenous, EVERY 15 MIN PRN, Starting on Fri10/25/22 at 0055, Until Fri10/30/22 at 1153, Other..., For SBP > 140 mmHg or MAP > 110 mmHg, Hold for HR < 60/min and/or MAP < 110 mmHg or SB P < 140 mmHg., Admission/Obs/Extended Recovery 10 mg Given 10/30/2022 8:13 AM DISTRIBUTOR OPERATOR 10/31/2022 6:00 AM DISTRIBUTOR OPERATOR 10 mg labetaloL (NORMODYNE) injection 10 mg Given 10 mg, Intravenous, EVERY 15 MIN PRN, Starting on Fri10/30/22 at 1150, Until Fri11/05/22 at 1437, Systolic Blood Pressure..., >160 10/31/2022 4:32 PM DISTRIBUTOR OPERATOR lactated ringers infusion Infusion 1,000 mL, 1,000 mL, Intravenous, at 20 Restarted mL/hr, CONTINUOUS, Starting on Martine 10/31/22 at 1330, Until 11/02/22 at 1329, Pre-Op 1,000 mL 20 mL/hr Given - New Bag 10/31/2022 3:00 PM DISTRIBUTOR OPERATOR 10/25/2022 12:52 AM DISTRIBUTOR OPERATOR 1,000 mg levETIRAcetam (KEPPRA) IV push 1,000 mg Given 1,000 mg, Intravenous, 10 mL, ONCE, 1 dose, On Fri10/25/22 at 0130, IV Push should be administered over 1 minute fo r every 500mg. 11/04/2022 9:29 AM DISTRIBUTOR OPERATOR 1 patch Back lidocaine (LIDODERM) 5 % topical patch 1 Patch/Topic a patch l Applied 1 patch, Topical, Administer over 12 Hours, DAILY, First dose on Fri 2 at 1530, Until Discontinued, NURSING PLEASE NOTE: Apply patch ONCE DAILY to back and REMOVE after designated duration. Apply only to intact skin. Patch may be cut to fit affected area. 1 patch Back Patch/Topical Applied 11/03/2022 8:58 AM DISTRIBUTOR OPERATOR 1 patch Back Patch/Topical Applied 11/02/2022 9:17 AM DISTRIBUTOR OPERATOR 1 patch Abdominal Tissue Patch/Topical Applied 11/01/2022 10:33 AM DISTRIBUTOR OPERATOR 1 patch Back Patch/Topical Applied 10/31/2022 8:55 AM DISTRIBUTOR OPERATOR 1 patch Back Patch/Topical Applied 10/30/2022 8:12 AM DISTRIBUTOR OPERATOR 1 patch Back Patch/Topical Applied 10/29/2022 8:42 AM DISTRIBUTOR OPERATOR 1 patch Back Patch/Topical Applied 10/28/2022 2:19 PM DISTRIBUTOR OPERATOR 1 patch Back Patch/Topical Applied 10/27/2022 8:04 AM DISTRIBUTOR OPERATOR 1 patch Back Patch/Topical Applied 10/26/2022 9:40 AM DISTRIBUTOR OPERATOR 10/28/2022 12:03 AM DISTRIBUTOR OPERATOR 1 patch Back lidocaine (LIDODERM) 5 % topical patch 1 Patch/Topic a patch l Applied 1 patch, Topical, Administer over 12 Hours, ONCE, 1 dose, On Fri10/28/22 at 0100, NURSING PLEASE NOTE: Apply patch ONCE DAILY to lower back and REMOVE after designated duration. Apply only to intact skin. Patch may be cut to fi t affected area. 10/30/2022 12:17 PM DISTRIBUTOR OPERATOR 0.25 mg LORazepam (ATIVAN) tablet 0.25 mg Given 0.25 mg, Oral, ONCE, 1 dose, On Fri10/30/22 at 1245 11/05/2022 9:13 AM DISTRIBUTOR OPERATOR 500 mg methocarbamoL (ROBAXIN) tablet 500 mg Given 500 mg, Oral, TWICE DAILY, First dose o n Fri10/25/22 at 0730, Until Discontinue d 500 mg Given 11/04/2022 9:21 PM DISTRIBUTOR OPERATOR 500 mg Given 11/04/2022 9:28 AM DISTRIBUTOR OPERATOR 500 mg Given 11/03/2022 8:31 PM DISTRIBUTOR OPERATOR 500 mg Given 11/03/2022 8:57 AM DISTRIBUTOR OPERATOR 500 mg Given 11/02/2022 8:43 PM DISTRIBUTOR OPERATOR 500 mg Given 11/02/2022 9:17 AM DISTRIBUTOR OPERATOR 500 mg Given 11/01/2022 9:06 PM DISTRIBUTOR OPERATOR 500 mg Given 11/01/2022 10:33 AM DISTRIBUTOR OPERATOR 500 mg Given 10/31/2022 9:01 PM DISTRIBUTOR OPERATOR 500 mg Given 10/31/2022 8:55 AM DISTRIBUTOR OPERATOR 500 mg Given 10/30/2022 9:48 PM DISTRIBUTOR OPERATOR 500 mg Given 10/30/2022 8:13 AM DISTRIBUTOR OPERATOR 500 mg Given 10/29/2022 8:42 PM DISTRIBUTOR OPERATOR 500 mg Given 10/29/2022 8:42 AM DISTRIBUTOR OPERATOR 500 mg Given 10/28/2022 8:11 PM DISTRIBUTOR OPERATOR 500 mg Given 10/27/2022 9:44 PM DISTRIBUTOR OPERATOR 500 mg Given 10/27/2022 8:05 AM DISTRIBUTOR OPERATOR 500 mg Given 10/26/2022 8:22 PM DISTRIBUTOR OPERATOR 500 mg Given 10/26/2022 9:40 AM DISTRIBUTOR OPERATOR 500 mg Given 10/25/2022 8:27 PM DISTRIBUTOR OPERATOR 500 mg Given 10/25/2022 7:41 AM DISTRIBUTOR OPERATOR 10/30/2022 9:48 PM DISTRIBUTOR OPERATOR 50 mg metoprolol tartrate (LOPRESSOR) tablet Given 50 mg 50 mg, Oral, TWICE DAILY, First dose on Fri10/25/22 at 0230, Until Discontinued, Hold for heart rate < 50 bpm or systolic BP < 90, Admission/Obs/Extended Recovery 50 mg Given 10/30/2022 8:13 AM DISTRIBUTOR OPERATOR 50 mg Given 10/29/2022 8:42 AM DISTRIBUTOR OPERATOR 50 mg Given 10/28/2022 8:11 PM DISTRIBUTOR OPERATOR 50 mg Given 10/27/2022 9:44 PM DISTRIBUTOR OPERATOR 50 mg Given 10/27/2022 8:04 AM DISTRIBUTOR OPERATOR 50 mg Given 10/26/2022 8:31 PM DISTRIBUTOR OPERATOR 50 mg Given 10/26/2022 9:40 AM DISTRIBUTOR OPERATOR 50 mg Given 10/25/2022 8:27 PM DISTRIBUTOR OPERATOR 50 mg Given 10/25/2022 9:19 AM DISTRIBUTOR OPERATOR 50 mg Given 10/25/2022 2:45 AM DISTRIBUTOR OPERATOR 11/03/2022 8:58 AM DISTRIBUTOR OPERATOR 10 mL milk of magnesia (CONC) oral suspension Given 10 mL 10 mL, Oral, DAILY, First dose on Fri10/25/22 at 0900, Until Discontinued, May hold if BM within 24 hours of dose. 10 mL CONC = 30 mL MOM, Admission/Obs/Extended Recovery 10 mL Given 11/02/2022 9:17 AM DISTRIBUTOR OPERATOR 10 mL Given 10/31/2022 8:55 AM DISTRIBUTOR OPERATOR 10 mL Given 10/26/2022 9:40 AM DISTRIBUTOR OPERATOR 10 mL Given 10/25/2022 9:19 AM DISTRIBUTOR OPERATOR nicotine (polacrilex) (COMMIT) lozenge 2 mg 2 mg, Oral, EVERY 1 HOUR PRN, Starting on Fri10/25/22 at 1421, Until Fri11/05/22 at 1437, Cravings, Do not use more than one lozenge at a time. Max 5 lozenges every 6 hours, 20 lozenges/day 10/28/2022 9:22 AM DISTRIBUTOR OPERATOR 50 mcg nitroglycerin(#) injection Given INTRA-PROCEDURE MED, Starting on 10/28/22 at 0842, Until 10/28/22 at 0922, Intra-op 200 mcg Given 10/28/2022 8:42 AM DISTRIBUTOR OPERATOR 10/28/2022 6:39 AM DISTRIBUTOR OPERATOR 5 mg oxyCODONE (ROXICODONE) tablet 2.5-5 mg Given 2.5-5 mg, Oral, EVERY 4 HOURS PRN, Starting on 10/26/22 at 0652, Until Fri10/30/22 at 0541, Pain PO, Other... , Moderate/Severe Pain, Give if patient tolerating PO if [place] not effective., Admission/Obs/Extended Recovery 5 mg Given 10/27/2022 6:03 PM DISTRIBUTOR OPERATOR 5 mg Given 10/27/2022 2:14 PM DISTRIBUTOR OPERATOR 2.5 mg Given 10/27/2022 9:23 AM DISTRIBUTOR OPERATOR 5 mg Given 10/27/2022 8:04 AM DISTRIBUTOR OPERATOR 2.5 mg Given 10/26/2022 11:26 PM DISTRIBUTOR OPERATOR 2.5 mg Given 10/26/2022 6:59 PM DISTRIBUTOR OPERATOR 2.5 mg Given 10/26/2022 12:38 PM DISTRIBUTOR OPERATOR 10/26/2022 5:04 AM DISTRIBUTOR OPERATOR 5 mg oxyCODONE (ROXICODONE) tablet 5-10 mg Given 5-10 mg, Oral, EVERY 4 HOURS PRN, Starting on Fri10/25/22 at 0055, Until 10/26/22 at 0652, Pain PO, Other... , Moderate/Severe Pain, Give if patient tolerating PO if [place] not effective., Admission/Obs/Extended Recovery 10 mg Given 10/25/2022 6:30 PM DISTRIBUTOR OPERATOR 10 mg Given 10/25/2022 1:14 PM DISTRIBUTOR OPERATOR 10 mg Given 10/25/2022 6:47 AM DISTRIBUTOR OPERATOR 10 mg Given 10/25/2022 1:53 AM DISTRIBUTOR OPERATOR 10/25/2022 12:05 PM DISTRIBUTOR OPERATOR 2 Diluted mL perflutren lipid microspheres (DEFINITY) Given injection 1-10 Diluted mL 1-10 Diluted mL, Intravenous, ONCE PRN, 1 dose, Starting on Fri10/25/22 at 0921, Until Fri10/25/22 at 1205, For Procedure, A embedded hardware engineer may only administer Definity through a saline lock. If IV is in use or a port, PICC, or central line is being used a nurse must administer. NOTE: This is a HIGH ALERT Medication., MAC Procedure Area Only - Medications 11/03/2022 8:58 AM DISTRIBUTOR OPERATOR 17 g polyethylene glycol 3350 (MIRALAX) Given packet 17 g 17 g (1 packet), Oral, DAILY, First dos e on Fri10/28/22 at 1400, Until Discontinued, 8.5 GRAMS = 0.5 PACKET 17 GRAMS = 1 PACKET 34 GRAMS = 2 PACKETS 17 g Given 11/02/2022 9:18 AM DISTRIBUTOR OPERATOR 17 g Given 11/01/2022 10:34 AM DISTRIBUTOR OPERATOR 17 g Given 10/28/2022 2:18 PM DISTRIBUTOR OPERATOR 10/30/2022 11:04 AM DISTRIBUTOR OPERATOR 11.9 millicuries RP DX F-18 FDG injection 10 millicurie Given 10 millicurie, Intravenous, ONCE, 1 dose, On Fri10/30/22 at 1100 11/03/2022 8:31 PM DISTRIBUTOR OPERATOR 1 tablet senna/docusate (SENOKOT-S) tablet 1 Given tablet 1 tablet, Oral, TWICE DAILY, First dose on Fri10/25/22 at 0100, Until Discontinued, Hold for loose stools. If patient unable to take tablet, give 10 mL of senna/docusate (SENOKOT-S) solution. Send in[place]iet message to pharmacy., If patient unable to take tablet, give 10 mL of senna/docusate (SENOKOT-S) solution., Admission/Obs/Extended Recovery 1 tablet Given 11/03/2022 8:57 AM DISTRIBUTOR OPERATOR 1 tablet Given 11/02/2022 8:43 PM DISTRIBUTOR OPERATOR 1 tablet Given 11/02/2022 9:17 AM DISTRIBUTOR OPERATOR 1 tablet Given 11/01/2022 9:06 PM DISTRIBUTOR OPERATOR 1 tablet Given 10/31/2022 8:55 AM DISTRIBUTOR OPERATOR 1 tablet Given 10/30/2022 9:48 PM DISTRIBUTOR OPERATOR 1 tablet Given 10/30/2022 8:13 AM DISTRIBUTOR OPERATOR 1 tablet Given 10/29/2022 8:42 AM DISTRIBUTOR OPERATOR 1 tablet Given 10/28/2022 8:11 PM DISTRIBUTOR OPERATOR 1 tablet Given 10/28/2022 2:18 PM DISTRIBUTOR OPERATOR 1 tablet Given 10/27/2022 9:44 PM DISTRIBUTOR OPERATOR 1 tablet Given 10/26/2022 8:22 PM DISTRIBUTOR OPERATOR 1 tablet Given 10/26/2022 9:39 AM DISTRIBUTOR OPERATOR 1 tablet Given 10/25/2022 8:27 PM DISTRIBUTOR OPERATOR 1 tablet Given 10/25/2022 9:19 AM DISTRIBUTOR OPERATOR 1 tablet Given 10/25/2022 2:45 AM DISTRIBUTOR OPERATOR 10/25/2022 11:50 PM DISTRIBUTOR OPERATOR 2 sprays sodium chloride (SEA MIST) 0.65 % nasal Given spray 2 spray 2 spray, Each Nostril, NEEDED, Starting on Fri10/25/22 at 2231, Until Fri11/05/22 at 1437, Congestion 10/25/2022 8:46 AM DISTRIBUTOR OPERATOR 50 mL sodium chloride PF 0.9% injection 50 mL Given 50 mL, Intravenous, ONCE, 1 dose, On Fr i 10/25/22 at 0900, DO NOT SEND this medication unless it is requested. This med is usually available in floor stock., Intra-procedure (IR) 10/26/2022 4:22 AM DISTRIBUTOR OPERATOR 50 mL sodium chloride PF 0.9% injection 50 mL Given 50 mL, Intravenous, ONCE, 1 dose, On Sa t 10/26/22 at 0430, DO NOT SEND this medication unless it is requested. This med is usually available in floor stock., Intra-procedure (IR) 11/03/2022 8:57 AM DISTRIBUTOR OPERATOR 50 mg traMADoL (ULTRAM) tablet 50 mg Given 50 mg, Oral, EVERY 6 HOURS PRN, Starting on Fri10/28/22 at 0516, Until Fri11/05/22 at 1437, Pain PO 50 mg Given 11/02/2022 4:01 PM DISTRIBUTOR OPERATOR 50 mg Given 11/01/2022 1:43 PM DISTRIBUTOR OPERATOR 50 mg Given 10/31/2022 11:07 PM DISTRIBUTOR OPERATOR 50 mg Given 10/30/2022 10:32 PM DISTRIBUTOR OPERATOR 50 mg Given 10/30/2022 2:36 PM DISTRIBUTOR OPERATOR 50 mg Given 10/30/2022 6:08 AM DISTRIBUTOR OPERATOR 50 mg Given 10/29/2022 5:57 PM DISTRIBUTOR OPERATOR 50 mg Given 10/28/2022 5:30 AM DISTRIBUTOR OPERATOR 10/31/2022 11:07 PM DISTRIBUTOR OPERATOR 25 mg traZODone (DESYREL) tablet 25 mg Given 25 mg, Oral, ONCE, 1 dose, On Martine 10/31/22 at 2345 10/28/2022 8:42 AM DISTRIBUTOR OPERATOR 2.5 mg verapamiL (ISOPTIN) injection Given INTRA-PROCEDURE MED, Starting on Fri10/28/22 at 0842, Until Fri10/28/22 at 0842, Intra-op documented in this encounter Discontinued Medications Start Date End Date Medication Sig Discontinue Reason 10/27/2022 aspirin 325 mg tablet Take 81 mg Removed from by mouth RETIREMENT SALES CONSULTANT Med List daily. Plus one extra prn 07/29/2022 11/05/2022 metoprolol tartrate Take 50 mg (LOPRESSOR) 50 mg tablet by mouth twice daily. documented as of this encounter Historical Medications * This list may reflect changes made after this encounter. Start Date End Date Medication Sig Dispensed Refills acetaminophen SR Take 650 mg 0 (TYLENOL) 650 mg tablet by mouth every 8 hours as needed for Pain. vitamins, B complex tab Take 1 tablet 0 by mouth daily. added in this encounter Active and Recently Administered Medications Times are shown in DISTRIBUTOR OPERATOR. 11/04/2022 11/05/2022 Medication Order 11/03/2022 0541 (Med Not Given - Provider: Delicia warren RN - Reason: Patient sleeping)183 (Med Not Given - Provider: Karina Mendoza RN - Reason: Other (Comment))2120 (Given - Provider: Yelena Oviedo RN) 07 (Given - Provider: Yelena Oviedo RN) acetaminophen (TYLENOL EXTRA STRENGTH) 0604 (Med Not Given tablet 1,000 mg - Provider: Lexie 1,000 mg, Oral, EVERY 8 HOURS, First ARMANDO Zapata - dose (after last modification) on Fri Reason: Patien t 10/30/22 at 0600, Until Discontinued, sleeping)143 (Given TOTAL ACETAMINOPHEN DOSE NOT TO EXCEED - Provider: Alannah smith 4GM DAILY, Admission/Obs/Extended ARMANDO Roberson)2030 (Giv en Recovery - Provider: Delicia Braden RN)2116 (Canceled Entry - Provider: Delicia Braden RN) 927 (Given - Provider: Chris Roberson RN) 912 (Given - Provider: Kathy Reid RN ) aspirin EC tablet 81 mg 0857 (Given - 81 mg, Oral, DAILY, First dose on Fri Provider: Anil mobley 11/01/22 at 0900, Until Discontinued ARMANDO Roberson) 927 (Given - Provider: Chris Roberson RN) 912 (Given - Provider: Kathy Reid RN ) atorvastatin (LIPITOR) tablet 80 mg 0857 (Given - 80 mg, Oral, DAILY, First dose on Fri Provider: Anil 10/25/22 at 0900, Until Discontinued, ARMANDO Roberson) Admission/Obs/Extended Recovery 927 (Given - Provider: Chris Roberson RN) 2120 (Med Not Given - Provider: Yelena Oviedo RN - Reason: Order parameters not met) 912 (Med Not Given - Provider: Kathy espinoza RN - Reason: Order parameters not met) carvediloL (COREG) tablet 12.5 mg 0857 (Given - 12.5 mg, Oral, TWICE DAILY, First dose Provider: Tobi emanuel on Fri10/31/22 at 0900, Until ARMANDO Roberson)2030 (Med Discontinued, Hold for heart rate < 60 Not Given - bpm or systolic BP < 100 Provider: Delicia Braden RN - Reason: Order parameters not met) 922 (Med Not Given - Provider: Chris duran RN - Reason: Loose stools)2128 (Med Not Given - Provider: Yelena Oviedo RN - Reason: Loose stools) 912 (Given - Provider: Kathy Reid RN ) docusate (COLACE) capsule 100 mg 0857 (Given - 100 mg, Oral, TWICE DAILY, First dose on Provider: Alannah ndrew Fri10/25/22 at 0100, Until ARMANDO Roberson)2031 (Given Discontinued, Hold for loose stools, - Provider: Franco rene Admission/Obs/Extended Recovery ARMANDO Braden) 2120 (Given - Provider: Yelena Oviedo RN) enoxaparin (LOVENOX) syringe 40 mg 2031 (Given - 40 mg, Subcutaneous, DAILY, First dose Provider: Franco rene on Fri11/01/22 at 0845, Until ARMANDO Braden) Discontinued, For patients undergoing surgery: Consult physician in advance - - enoxaparin is an anticoagulant and may need to be held for 12hr prior to surgery or invasive procedures. NOTE: This is a HIGH ALERT Medication. 912 (Given - Provider: Kathy Reid RN ) ferrous gluconate tablet 324 mg 0858 (Given - 324 mg, Oral, EVERY 48 HOURS, First dose Provider: Alannah ndrew on Fri10/30/22 at 0900, Until ARMANDO Roberson) Discontinued, Each 324mg ferrous gluconate delivers 37.5mg elemental iron. 927 (Given - Provider: Chris Roberson RN) 913 (Given - Provider: Kathy Reid RN ) fluticasone propionate (FLONASE) nasal 0859 (Given - spray 2 spray Provider: Chris 2 spray, Each Nostril, DAILY, First dose ARMANDO Roberson) on Fri10/25/22 at 1400, Until Discontinued 928 (Patch/Topical Applied - Provider: Chris Roberson RN)2128 (Patch/Topical Removed - Provider: Yelena Oviedo RN) 913 (Med Not Given - Provider: Kathy espinoza RN - Reason: Patient Refused) lidocaine (LIDODERM) 5 % topical patch 1 857 (Patch /Topical patch Applied - Provider: 1 patch, Topical, Administer over 12 Chris Roberson RN )2032 Hours, DAILY, First dose on Fri10/25/22 (Patch/Topi milagro at 1530, Until Discontinued, NURSING Removed - Provi phani: PLEASE NOTE: Apply patch ONCE DAILY to Delicia Braden RN) back and REMOVE after designated duration. Apply only to intact skin. Patch may be cut to fit affected area. 927 (Given - Provider: Chris Roberson RN) 2120 (Given - Provider: Yelena Oviedo RN) 912 (Given - Provider: Kathy Reid RN ) methocarbamoL (ROBAXIN) tablet 500 mg 0857 (Given - 500 mg, Oral, TWICE DAILY, First dose on Provider: Alannah smith Fri10/25/22 at 0730, Until Discontinued ARMANDO Roberson)20 (Given - Provider: Delicia Braden RN) 922 (Med Not Given - Provider: Chris duran RN - Reason: Loose stools) 913 (Med Not Given - Provider: Kathy espinoza RN - Reason: Patient Refused) milk of magnesia (CONC) oral suspension 0858 (Given - 10 mL Provider: Chris 10 mL, Oral, DAILY, First dose on Fri ARMANDO Roberson) 10/25/22 at 0900, Until Discontinued, May hold if BM within 24 hours of dose. 10 mL CONC = 30 mL MOM, Admission/Obs/Extended Recovery 922 (Med Not Given - Provider: Chris duran RN - Reason: Loose stools) 0915 (Med Not Given - Provider: Kathy espinoza RN - Reason: Patient Refused) polyethylene glycol 3350 (MIRALAX) 0858 (Given - packet 17 g Provider: Chris 17 g (1 packet), Oral, DAILY, First dose ARMANDO Roberson) on Fri10/28/22 at 1400, Until Discontinued, 8.5 GRAMS = 0.5 PACKET 17 GRAMS = 1 PACKET 34 GRAMS = 2 PACKETS 0924 (Med Not Given - Provider: Chris duran RN - Reason: Loose stools)2129 (Med Not Given - Provider: Yelena Oviedo RN - Reason: Loose stools) 0915 (Med Not Given - Provider: Kathy espinoza RN - Reason: Patient Refused) senna/docusate (SENOKOT-S) tablet 1 0857 (Given - tablet Provider: Chris 1 tablet, Oral, TWICE DAILY, First dose ARMANDO Roberson)203 1 (Given on Fri10/25/22 at 0100, Until - Provider: Delicia Zamarripa, Hold for loose stools. If ARMANDO Braden) patient unable to take tablet, give 10 mL of senna/docusate (SENOKOT-S) solution. Send inConnequity message to pharmacy., If patient unable to take tablet, give 10 mL of senna/docusate (SENOKOT-S) solution., Admission/Obs/Extended Recovery 11/04/2022 11/05/2022 Medication Order 11/03/2022 dextromethorphan/guaiFENesin (ROBITUSSIN-DM) oral syrup 10 mL 10 mL, Oral, EVERY 6 HOURS PRN, Starting on Fri10/26/22 at 0652, Until Fri11/05/22 at 1437, Cough, Delivers Guaifenesin 100mg and Dextromethorphan 10mg per 5ml eucalyptus-menthoL (HALLS) lozenge 1 lozenge 1 lozenge, Oral, EVERY 2 HOURS PRN, Starting on Fri10/25/22 at 2130, Until Fri11/05/22 at 1437, Mouth/Throat Pain 0402 (Given - Provider: Yelena Oviedo RN - Comment: Bp: 176/65) hydrALAZINE (APRESOLINE) tablet 20 mg 20 mg, Oral, EVERY 8 HOURS PRN, Starting on Martine 10/31/22 at 0751, Until Fri11/05/22 at 1437, Systolic Blood Pressure..., SBP >160 labetaloL (NORMODYNE) injection 10 mg 10 mg, Intravenous, EVERY 15 MIN PRN, Starting on Fri10/30/22 at 1150, Until Fri11/05/22 at 1437, Systolic Blood Pressure..., >160 nicotine (polacrilex) (COMMIT) lozenge 2 mg 2 mg, Oral, EVERY 1 HOUR PRN, Starting on Fri10/25/22 at 1421, Until Fri11/05/22 at 1437, Cravings, Do not use more than one lozenge at a time. Max 5 lozenges every 6 hours, 20 lozenges/day ondansetron (ZOFRAN) injection 4 mg 4 mg, Intravenous, EVERY 6 HOURS PRN, Starting on Fri10/25/22 at 0055, Until Fri11/05/22 at 1437, Nausea/Vomiting Injectable, Admission/Obs/Extended Recovery sodium chloride (SEA MIST) 0.65 % nasal spray 2 spray 2 spray, Each Nostril, NEEDED, Starting on Fri10/25/22 at 2231, Until Fri11/05/22 at 1437, Congestion traMADoL (ULTRAM) tablet 50 mg 0857 (Given - 50 mg, Oral, EVERY 6 HOURS PRN, Provider: Chris Starting on Fri10/28/22 at 0516, Until ARMANDO Roberson) Fri11/05/22 at 1437, Pain PO documented in this encounter Orders First Ordered Date Medications Ordered That Might Not Have Count Last Ordered Date Been Administered acetaminophen (TYLENOL EXTRA STRENGTH) 1 10/31/2022 tablet 1,000 mg diphenhydrAMINE HCL (BENADRYL) injection 1 10/31/2022 25 mg fentaNYL citrate PF (SUBLIMAZE) 1 2021 injection 25-50 mcg haloperidol lactate (HALDOL) injection 1 1 10/31/2022 mg oxyCODONE (ROXICODONE) tablet 5-10 mg 1 10/31/2022 hydrALAZINE (APRESOLINE) injection 10 mg 1 10/30/2022 diphenhydrAMINE HCL (BENADRYL) 50 mg in 1 10/27/2022 dextrose 5% (D5W) 50 mL IVPB diphenhydrAMINE HCL (BENADRYL) capsule 1 10/27/2022 50 mg magnesium sulfate 1 g/D5W 100 mL IVPB 1 10/27/2022 prochlorperazine (COMPAZINE) injection 1 10/27/2022 10 mg sodium chloride 0.9 % infusion 1 10/26 levETIRAcetam (KEPPRA) tablet 500 mg 2 1 12/26/2021 nicotine (polacrilex) (COMMIT) lozenge 2 1 10/25/2022 mg ondansetron (ZOFRAN) injection 4 mg 1 First Ordered Date Procedures Count Last Ordered Date 10/27/2022 CONSULT VASCULAR ACCESS TEAM 3 First Ordered Date Diet Count Last Ordered Date DISCHARGE DIET REGULAR 1 11/05/2022 First Ordered Date Nursing Count Last Ordered Date DISCHARGE ACTIVITY NORMAL 1 11/05/2022 DISCHARGE CONTACT 1 11/05/2022 DISCHARGE SIGNS/SYMPTOMS 1 11/05/2022 STRAIGHT CATH 1 10/28/2022 NPO PRIOR TO PROCEDURE 1 10/27/2022 First Ordered Date Consult Count Last Ordered Date CONSULT PULMONARY/CRITICAL CARE 1 2021 PHYSICIAN CONSULT ONCOLOGY PHYSICIAN 1 10/26/2022 CONSULT REHABILITATION MEDICINE 1 2021 PHYSICIAN CONSULT INTERNAL MEDICINE PHYSICIAN 1 CONSULT INTERVENTIONAL RADIOLOGY 1 10/25 PHYSICIAN CONSULT NEUROLOGY PHYSICIAN 1 10/24/2022 CONSULT NEUROSURGERY PHYSICIAN 1 022 First Ordered Date OT Count Last Ordered Date OT CONSULT OCCUPATIONAL THERAPY 1 2021 First Ordered Date PT Count Last Ordered Date PT CONSULT PHYSICAL THERAPY 1 10/25/2022 First Ordered Date Neurology Count Last Ordered Date 10/26/2022 EEG DEPARTMENT ORDER 2 10/27/2022 First Ordered Date Admission Count Last Ordered Date ADMIT TO INPATIENT 1 10/25/2022 First Ordered Date Transfer Count Last Ordered Date TRANSFER PATIENT (BED REQUEST) 1 022 First Ordered Date Discharge Count Last Ordered Date DISCHARGE PATIENT NOW 1 11/05/2022 First Ordered Date Equipment Count Last Ordered Date PUMP IV CONTROL UNIT W/MODULES [address] [facility] BED AIRFLOW PUMP 1 10/27/20 22 HEATING, MACHINE AK WITH PAD 1 2 First Ordered Date Activity Count Last Ordered Date MOBILITY 1 10/25/2022 First Ordered Date Discharge Contingent Count Last Ordered Date DISCHARGE PATIENT CONTINGENT 1 2 First Ordered Date SPECIALITY EQUIPMENT Count Last Ordered Date COMMODE STANDARD 300LBS MAX 1 10/28/2022 FAN 1 10/26/2022 First Ordered Date RT One-Time Procedures Count Last Ordered Da te RESPIRATORY THERAPY EVALUATION 1 022 First Ordered Date Order Set Communication Count Last Ordered D ate PATIENT HAS: 1 10/27/2022 ADD AGITATE SALINE BUBBLE STUDY TO ECHO 1 10/25/2022 VTE DRUG PROPHYLAXIS CONTRAINDICATED 1 1 12/26/2021 First Ordered Date Appointment Request Count Last Ordered Date [facility]POINTMENT RE[facility] 11/05/2022 ([place]) APPOINTMENT REQUEST: NEUROSURGERY 2 10/[address] & Maintain Count Last Ordered Date PLACE AND MAINTAIN SCD 1 10/25/2022 First Ordered Date Case Request Count Last Ordered Date CASE REQUEST 1 10/29/2022 First Ordered Date ADT Patient Update Count Last Ordered Date CHANGE SERVICE / LEVEL OF CARE (NO BED 1 10/28/2022 REQUEST) documented in this encounter Additional Health Concerns Noted Time Assessment 11/05/2022 9:00 AM DISTRIBUTOR OPERATOR A fall risk assessment has been complet ed for the patient 09/27/2022 8:15 AM DISTRIBUTOR OPERATOR PHQ-2 Depression Total Score: 0 documented as of this encounter Care Teams Start Date End Date Human Resources Recruiter Relationship Specialty 09/10/22 Jorge Luis Cuba MD PCP - [address] [id number] documented as of this encounter
--- OUTSIDE RECORDS SUMMARY | 2022-11-05 14:57 | XMS REPORT | Clinical Summary ---
Author Author [facility] Organization [facility] Address Unknown Phone Unavailable Care Team Providers Care Ingot Weigher Name Role Phone Jorge Luis Cuba MD PCP Source Comments Some departments are not documenting in the electronic medical record. If you d o not see the information that you expected, contact Release of Information in [facility] [employer] Information Management department at [phone] for further assistan ce in locating additional records.[facility] Allergies No known active allergies Medications End Date Status Medication Sig Dispensed Refills Start Date Active atorvastatin (LIPITOR) 80 Take 80 mg by 0 07/11 mg tablet mouth daily. 2 Active vitamins, multiple cap Take 1 0 capsule by mouth daily. Active vitamins, B complex tab Take 1 tablet 0 by mouth daily. Active acetaminophen SR Take 650 mg 0 (TYLENOL) 650 mg tablet by mouth every 8 hours as needed for Pain. Active carvediloL (COREG) 12.5 Take one 180 tablet 0 mg tablet tablet by 2 mouth twice daily. Take with food. Active aspirin EC 81 mg tablet Take one 90 tablet 0 tablet by 2 mouth daily. Take with food. Active ferrous gluconate 324 mg Take one 0 11/07 (37.5 mg iron) tab tablet by 2 mouth every 48 hours. Active hydrALAZINE (APRESOLINE) Take two 270 tablet 0 1 10 mg tablet tablets by 2 mouth every 8 hours as needed (SBP >160). Active methocarbamoL (ROBAXIN) Take one 15 tablet 0 500 mg tablet tablet by 2 mouth twice daily. Active senna/docusate Take one 90 tablet 0 (SENOKOT-S) 8.6/50 mg tablet by 2 tablet mouth twice daily. Active traMADoL (ULTRAM) 50 mg Take one 0 tablet tablet by 2 mouth every 6 hours as needed. 11/05/2022 Discontinued metoprolol tartrate Take 50 mg by 0 (LOPRESSOR) 50 mg tablet mouth twice 2 daily. 10/27/2022 Discontinued (Removed from P TA Med List) aspirin 325 mg tablet Take 81 mg by 0 mouth daily. Plus one extra prn Active Problems Problem Noted Date SDH (subdural hematoma) 10/25/2022 Essential tremor 09/10/2022 Overview: Symptoms began in as teenager, initial symptoms was right hand tremor. Diagnosed with Essential tremor in 1971 . Tremor improves with alcohol. There is family history of tremor. 09/10/2022 ETRS Total Score: 74 Quest Pe rcent: Total Score (%): 32 % PDQ Total Percent: 19.23 % Last Assessment & Plan: Formatting of t his note might be different from the original. Patient is a 82 y.o. year old male who presents with Essential tremor and on examination has postural and kinetic tremor on both sides along with a family history of tremors and his tremo rs improve with alcohol. My assessment is that the patient most lik tom has Essential tremor and we discussed the diagnosis and prognosis i n detail. He has medication resistant disabling tremor and is a kelsi sonable candidate for focused ultrasound (FUS) of the thalamic nucleu s. The risks and benefits of surgery including the chance of 60-80% improvem ent in the targeted limb was discussed with the patient. In addition the risks of surgery including intracranial bleed, stroke, weakness, n umbness, worsening of cognition, post operative confusion and, behavior changes were discussed. Cognitive change 09/10/2022 Overview: 09/10/2022 MOCA Score (out of 30): 22 Last Assessment & Plan: Formatting of t his note might be different from the original. Patient denies any cognitive issues and we will monitor. 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 Chronic low back pain Encounters Care Team Description Date Type Specialty Jose Manuel Montague MD 11/04/2022 Hospital Encounter Jose Manuel Montague MD 11/02/2022 Hospital Encounter Lorrie Austin MD Bachamp, Kyle, MD 10/31/2022 Anesthesia Event Delano Sawant MD ROBOT ASSISTED BRONCHOSCOPY WITH IMAGE-G UIDED NAVIGATION- FLEXIBLE 10/31/2022 Surgery de Tyler Steward, Elizabeth Davison, ADVERTISING COLUMNIST 10/29/2022 Anesthesia Cardiology Event Portillo March MD 10/29/2022 Hospital Cardiology Encounter Elsie Pisano RN 10/29/2022 Telephone Cardiology Mila Ceballos MD Dempsey, Paige M, ADVERTISING COLUMNIST 10/28/2022 Anesthesia Radiology Event 10/27/2022 Hospital Encounter Portillo March MD 10/27/2022 Hospital Encounter Hunter Hernandez MD Peterson, Jeremy C, MD Albakour, Ayman, MD Ryan, Jamison M, MD Zelalem, Peniel T, MD SDH (subdural hematoma) 10/24/2022 Hospital - Encounter 11/05/2022 10/24/2022 Hospital Radiology Encounter 10/24/2022 Portillo Lanier MD 10/24/2022 Nurse Triage Neurosurgery Portillo March MD Subdural hematoma (Primary Dx) 10/24/2022 Orders Only Neurosurgery Portillo March MD Research 10/23/2022 Telephone Neurosurgery Portillo March MD General Question 10/22/2022 Telephone Neurosurgery Cecilia Ramirez MD 10/15/2022 Nurse Only Neurosurgery 10/15/2022 Ezio Brewer MD 10/12/2022 Emergency Emergency Medicine Clyde Rogers MD Essential tremor (Primary Dx) 10/10/2022 Office Visit Neurosurgery Clyde Rogers MD 10/10/2022 Hospital Radiology Encounter Portillo March MD Provider Discussion About Patient (Here to discuss a possible trial for treatment of subdural hematomas that we are participating in at .) 10/10/2022 Documentation Neurosurgery 10/10/2022 Clyde Page MD ERRONEOUS ENCOUNTER--DISREGARD (Primary Dx) 10/10/2022 Orders Only Neurosurgery Clyde Rogers MD Imaging 10/10/2022 Telephone Neurosurgery Clyde Rogers MD Other 10/09/2022 Telephone Neurosurgery Clyde Rogers MD 10/01/2022 Documentation Neurosurgery Clyde Rogers MD 09/30/2022 Documentation Neurosurgery Clyde Rogers MD 09/27/2022 Hospital Radiology Encounter Clyde Rogers MD Essential tremor (Primary Dx) 09/27/2022 Office Visit Neurosurgery Clyde Rogers MD Other 09/27/2022 Telephone Neurosurgery 09/27/2022 Travel Clyde Rogers MD Other 09/12/2022 Telephone Neurosurgery Francisco Michel MD Essential tremor (Primary Dx); Cognitive change 09/10/2022 Office Visit Neurology 09/10/2022 Travel Francisco Michel MD Other (Pre Charting) 09/09/2022 Telephone Neurology Francisco Michel MD General Question 09/09/2022 Telephone Neurology from Last 3 Months Surgical History Surgery Date Site/Laterality Comments HERNIA REPAIR Double SURGERY 11/10/2016 - Iliac stents 11/09/2017 BACK SURGERY 11/10/2015 - 11/09/2016 HEART VALVE SURGERY 11/10/2017 - 11/09/2018 BRONCHOSCOPY 10/31/2022 Bronchus/N/A ROBOT ASSISTED BRONCHOSCOPY WITH IMAGE-GUIDED NAVIGATION- FLEXIBLE performed by Delano Sawant MD at [facility] OR Medical History Medical History Date Comments Tremor PAD (peripheral artery disease) (HCC) Arthritis Bleeding disorder (HCC) Hypertension Family History Medical History Relation Name Comments Cancer Brother Tremor Father Cancer Son Relation Name Status Comments Brother Father Son Social History Date Tobacco Use Types Packs/Day Years Used Smoking Tobacco: Every Cigarettes 0.5 Day Smokeless Tobacco: Never Tobacco Cessation: Ready to Quit: Not As ked; Counseling Given: Not Answered Comments Alcohol Use Standard Drinks/Week Not Currently 0 (1 standard drink = 0.6 o z pure alcohol) Sex Assigned at Date Recorded Not on file Date Recorded COVID-19 Exposure Response 10/24/2022 5:04 PM TELECOMMUNICATIONS MANAGER In the last 10 days, have you been in contact with N o / Unsure someone who was confirmed or suspected to have Coronavirus/COVID-19? Obstetrics History Last Filed Vital Signs Reading Time Taken Comments Vital Sign 131/52 11/05/2022 7:45 AM TELECOMMUNICATIONS MANAGER Blood Pressure 56 11/05/2022 7:45 AM TELECOMMUNICATIONS MANAGER Pulse 36.8 C (98.3 F) 11/05/2022 7:45 AM TELECOMMUNICATIONS MANAGER Temperature - - Respiratory Rate 97% 11/05/2022 7:45 AM TELECOMMUNICATIONS MANAGER Oxygen Saturation - - Inhaled Oxygen Concentration 58.5 kg (129 lb) 10/29/2022 3:40 PM TELECOMMUNICATIONS MANAGER Weight 170.2 cm (5' 7.01") 10/29/2022 3:40 PM TELECOMMUNICATIONS MANAGER Height 20.2 10/29/2022 3:40 PM TELECOMMUNICATIONS MANAGER Body Mass Index Plan of Treatment Health Maintenance Due Date Last Done Comments MEDICARE ANNUAL WELLNESS 1940 VISIT PHYSICAL (COMPREHENSIVE) 1959 EXAM SHINGLES RECOMBINANT 1991 VACCINE (1 of 2) DTAP/TDAP VACCINES (1 - 05/21/2007 05/20/2007 Tdap) ADVANCED CARE PLANNING 11/10/2021 DISCUSSION AND DOCUMENTATION INFLUENZA VACCINE (#1) 2022 08/11/2020, 07/31/2018 COVID-19 VACCINE (5 - 06/14/2022 04/19/2022, Booster for Moderna 09/07/2021, series) 01/31/2021, Additional history exists PNEUMOCOCCAL VACCINE Completed 08/28/2017, 08/16/2009, 08/10/2009 DEPRESSION SCREENING Completed 09/27/2022 Goals Goal Patient Associated Recent Progress Patient-Stat Aut hor Goal Type Problems ed? Recover from illness Hospital On track (10/25/2022 Yes Pina Flores, 4:08 PM TELECOMMUNICATIONS MANAGER) RN Note: "To get better and go home" Medical Devices Device Identifier Shelf Expiration Date Model / Serial / L ot Implanted Type Area Manufactur er [id number] 03/08/2025 S220 / . / [id number] Sphere Embolization Yellow Right: Arterial MERIT Embosphere 100-300um Microsphere - MEDICAL S. SYSTEMS Implanted: Qty: 1 on 10/28/2022 by Portillo Diggs MD at [facility] Procedures Comments Procedure Name Priority Date/Time Associated Diag nosis COMPREHENSIVE METABOLIC Routine 11/05/2022 PANEL 4:04 AM TELECOMMUNICATIONS MANAGER CBC Routine 11/05/2022 4:04 AM TELECOMMUNICATIONS MANAGER CONSULT VASCULAR ACCESS Routine 11/04/2022 TEAM 1:05 AM TELECOMMUNICATIONS MANAGER HC CBC W/ AUTOMATED DIFF Routine 11/03/2022 4:13 AM TELECOMMUNICATIONS MANAGER HC COMPREHENSIVE Routine 11/03/2022 METABOLIC PANEL 4:13 AM TELECOMMUNICATIONS MANAGER CONSULT VASCULAR ACCESS Routine 11/02/2022 TEAM 5:48 PM TELECOMMUNICATIONS MANAGER HC CBC W/ AUTOMATED DIFF Routine 11/02/2022 4:04 AM TELECOMMUNICATIONS MANAGER HC COMPREHENSIVE Routine 11/02/2022 METABOLIC PANEL 4:04 AM TELECOMMUNICATIONS MANAGER HC CBC W/ AUTOMATED DIFF Routine 11/01/2022 4:02 AM TELECOMMUNICATIONS MANAGER HC COMPREHENSIVE Routine 11/01/2022 METABOLIC PANEL 4:02 AM TELECOMMUNICATIONS MANAGER ROBOT ASSISTED 10/31/2022 Lung mass BRONCHOSCOPY WITH 3:29 PM TELECOMMUNICATIONS MANAGER IMAGE-GUIDED NAVIGATION- FLEXIBLE CT CHEST WO CONTRAST STAT 10/31/2022 2:41 PM TELECOMMUNICATIONS MANAGER BRONCHOSCOPY 10/31/2022 2:34 PM TELECOMMUNICATIONS MANAGER HC COMPREHENSIVE Routine 10/31/2022 METABOLIC PANEL 4:26 AM TELECOMMUNICATIONS MANAGER HC CBC W/ AUTOMATED DIFF Routine 10/31/2022 4:26 AM TELECOMMUNICATIONS MANAGER NM PET SCAN TORSO BLAYNE 10/30/2022 (SKULL-THIGHS) 2:16 PM TELECOMMUNICATIONS MANAGER HC BASIC METABOLIC PANEL Routine 10/30/2022 4:21 AM TELECOMMUNICATIONS MANAGER HC CBC W/ AUTOMATED DIFF Routine 10/30/2022 4:21 AM TELECOMMUNICATIONS MANAGER ANSELMO W/O CONTRAST Routine 10/29/2022 3:47 PM TELECOMMUNICATIONS MANAGER HC BASIC METABOLIC PANEL Routine 10/29/2022 3:57 AM TELECOMMUNICATIONS MANAGER HC CBC W/ AUTOMATED DIFF Routine 10/29/2022 3:57 AM TELECOMMUNICATIONS MANAGER IR CEREBRAL ANEURYSM Routine 10/28/2022 EMBOLIZATION 9:46 AM TELECOMMUNICATIONS MANAGER TELEMETRY STRIPS-SCAN 10/28/2022 12:00 AM TELECOMMUNICATIONS MANAGER TELEMETRY STRIPS-SCAN 10/28/2022 12:00 AM TELECOMMUNICATIONS MANAGER TELEMETRY STRIPS-SCAN 10/28/2022 12:00 AM TELECOMMUNICATIONS MANAGER TELEMETRY STRIPS-SCAN 10/28/2022 12:00 AM TELECOMMUNICATIONS MANAGER TELEMETRY STRIPS-SCAN 10/28/2022 12:00 AM TELECOMMUNICATIONS MANAGER TELEMETRY STRIPS-SCAN 10/28/2022 12:00 AM TELECOMMUNICATIONS MANAGER TELEMETRY STRIPS-SCAN 10/28/2022 12:00 AM TELECOMMUNICATIONS MANAGER TELEMETRY STRIPS-SCAN 10/28/2022 12:00 AM TELECOMMUNICATIONS MANAGER TELEMETRY STRIPS-SCAN 10/28/2022 12:00 AM TELECOMMUNICATIONS MANAGER TELEMETRY STRIPS-SCAN 10/28/2022 12:00 AM TELECOMMUNICATIONS MANAGER TELEMETRY STRIPS-SCAN 10/28/2022 12:00 AM TELECOMMUNICATIONS MANAGER TELEMETRY STRIPS-SCAN 10/28/2022 12:00 AM TELECOMMUNICATIONS MANAGER TELEMETRY STRIPS-SCAN 10/28/2022 12:00 AM TELECOMMUNICATIONS MANAGER TELEMETRY STRIPS-SCAN 10/28/2022 12:00 AM TELECOMMUNICATIONS MANAGER TELEMETRY STRIPS-SCAN 10/28/2022 12:00 AM TELECOMMUNICATIONS MANAGER TELEMETRY STRIPS-SCAN 10/28/2022 12:00 AM TELECOMMUNICATIONS MANAGER TELEMETRY STRIPS-SCAN 10/28/2022 12:00 AM TELECOMMUNICATIONS MANAGER TELEMETRY STRIPS-SCAN 10/28/2022 12:00 AM TELECOMMUNICATIONS MANAGER TELEMETRY STRIPS-SCAN 10/28/2022 12:00 AM TELECOMMUNICATIONS MANAGER TELEMETRY STRIPS-SCAN 10/28/2022 12:00 AM TELECOMMUNICATIONS MANAGER TELEMETRY STRIPS-SCAN 10/28/2022 12:00 AM TELECOMMUNICATIONS MANAGER TELEMETRY STRIPS-SCAN 10/28/2022 12:00 AM TELECOMMUNICATIONS MANAGER TELEMETRY STRIPS-SCAN 10/28/2022 12:00 AM TELECOMMUNICATIONS MANAGER TELEMETRY STRIPS-SCAN 10/28/2022 12:00 AM TELECOMMUNICATIONS MANAGER EEG DEPARTMENT ORDER STAT 10/27/2022 9:21 PM TELECOMMUNICATIONS MANAGER CBC 10/27/2022 8:55 PM TELECOMMUNICATIONS MANAGER BASIC METABOLIC PANEL 10/27/2022 8:55 PM TELECOMMUNICATIONS MANAGER CONSULT VASCULAR ACCESS Routine 10/27/2022 TEAM 8:22 PM TELECOMMUNICATIONS MANAGER HC CBC,AUTOMATED 91 STAT 10/27/2022 7:[address] HEAD WO CONTRAST STAT 10/27/2022 7:46 PM TELECOMMUNICATIONS MANAGER HC CBC W/ AUTOMATED DIFF Routine 10/27/2022 4:16 AM TELECOMMUNICATIONS MANAGER HC BASIC METABOLIC PANEL Routine 10/27/2022 4:16 AM TELECOMMUNICATIONS MANAGER W[place] BLOOD SMEAR PERIPHERAL Routine 10/26/2022 INTERP PHYS W/WRIT REPORT 9:59 AM TELECOMMUNICATIONS MANAGER HC FOLATE, SERUM Routine 10/26/2022 9:59 AM TELECOMMUNICATIONS MANAGER HC VITAMIN B12 Routine 10/26/2022 9:59 AM TELECOMMUNICATIONS MANAGER HC IRON BINDING CAPACITY Routine 10/26/2022 + %SAT 9:59 AM TELECOMMUNICATIONS MANAGER HC CBC W/ AUTOMATED DIFF Routine 10/26/2022 9:59 AM TELECOMMUNICATIONS MANAGER HC BASIC METABOLIC PANEL Routine 10/26/2022 9:59 AM TELECOMMUNICATIONS MANAGER EEG DEPARTMENT ORDER Routine 10/26/2022 8:[address] CHEST W CONTRAST Routine 10/26/2022 4:20 AM TELECOMMUNICATIONS MANAGER MRI HEAD WO CONTRAST Routine 10/25/2022 12:30 PM TELECOMMUNICATIONS MANAGER 2D + DOPPLER ECHO W/ Routine 10/25/2022 CONTRAST 12:04 PM TELECOMMUNICATIONS MANAGER CTA NECK WO/W CONT Routine 10/25/2022 8:45 AM TELECOMMUNICATIONS MANAGER CTA HEAD WO/W CONT Routine 10/25/2022 8:45 AM TELECOMMUNICATIONS MANAGER HC HEMOGLOBIN A1C Routine 10/25/2022 7:12 AM TELECOMMUNICATIONS MANAGER HC Routine 10/25/2022 LIPID-5:CHOL/TRG/HDL/LDL+ 7:12 AM TELECOMMUNICATIONS MANAGER VLDL CT HEAD WO CONTRAST STAT 10/24/2022 10:57 PM TELECOMMUNICATIONS MANAGER ECG 12-LEAD STAT 10/24/2022 10:25 PM TELECOMMUNICATIONS MANAGER CHEST SINGLE VIEW STAT 10/24/2022 9:50 PM TELECOMMUNICATIONS MANAGER POC GLUCOSE 10/24/2022 9:40 PM TELECOMMUNICATIONS MANAGER HC TSH SCREEN STAT 10/24/2022 9:38 PM TELECOMMUNICATIONS MANAGER CLEAR TOP EXTRA URINE STAT 10/24/2022 TUBE 9:38 PM TELECOMMUNICATIONS MANAGER UA LEOS TOP TUBE STAT 10/24/2022 9:38 PM TELECOMMUNICATIONS MANAGER URINALYSIS MICROSCOPIC STAT 10/24/2022 REFLEX TO CULTURE 9:38 PM TELECOMMUNICATIONS MANAGER HC URINALYSIS UAR STAT 10/24/2022 9:38 PM TELECOMMUNICATIONS MANAGER HC MAGNESIUM STAT 10/24/2022 9:38 PM TELECOMMUNICATIONS MANAGER HC PT(INR) STAT 10/24/2022 9:38 PM TELECOMMUNICATIONS MANAGER HC COMPREHENSIVE STAT 10/24/2022 METABOLIC PANEL 9:38 PM TELECOMMUNICATIONS MANAGER HC CBC W/ AUTOMATED DIFF STAT 10/24/2022 9:[address] HEAD EXTERNAL IMAGING Routine 10/24/2022 12:00 AM TELECOMMUNICATIONS MANAGER TELEMETRY STRIPS-SCAN 10/24/2022 12:00 AM TELECOMMUNICATIONS MANAGER TELEMETRY STRIPS-SCAN 10/24/2022 12:00 AM TELECOMMUNICATIONS MANAGER TELEMETRY STRIPS-SCAN 10/24/2022 12:00 AM TELECOMMUNICATIONS MANAGER TELEMETRY STRIPS-SCAN 10/24/2022 12:00 AM TELECOMMUNICATIONS MANAGER TELEMETRY STRIPS-SCAN 10/24/2022 12:00 AM TELECOMMUNICATIONS MANAGER TELEMETRY STRIPS-SCAN 10/24/2022 12:00 AM TELECOMMUNICATIONS MANAGER TELEMETRY STRIPS-SCAN 10/24/2022 12:00 AM TELECOMMUNICATIONS MANAGER TELEMETRY STRIPS-SCAN 10/24/2022 12:00 AM TELECOMMUNICATIONS MANAGER TELEMETRY STRIPS-SCAN 10/24/2022 12:00 AM TELECOMMUNICATIONS MANAGER TELEMETRY STRIPS-SCAN 10/24/2022 12:00 AM TELECOMMUNICATIONS MANAGER TELEMETRY STRIPS-SCAN 10/24/2022 12:[address] HEAD WO CONTRAST STAT 10/12/2022 8:36 PM TELECOMMUNICATIONS MANAGER CLEAR TOP EXTRA URINE STAT 10/12/2022 TUBE 8:08 PM TELECOMMUNICATIONS MANAGER UA LEOS TOP TUBE STAT 10/12/2022 8:08 PM TELECOMMUNICATIONS MANAGER URINALYSIS MICROSCOPIC STAT 10/12/2022 REFLEX TO CULTURE 8:08 PM TELECOMMUNICATIONS MANAGER HC URINALYSIS UAR STAT 10/12/2022 8:08 PM TELECOMMUNICATIONS MANAGER HC COMPREHENSIVE STAT 10/12/2022 METABOLIC PANEL 8:08 PM TELECOMMUNICATIONS MANAGER HC CBC W/ AUTOMATED DIFF STAT 10/12/2022 8:08 PM TELECOMMUNICATIONS MANAGER ECG 12-LEAD STAT 10/12/2022 6:[address] HEAD WO CONTRAST Routine 10/10/2022 Essential tremor 3:[address] HEAD WO CONTRAST Routine 09/27/2022 Essential tremor 9:57 AM TELECOMMUNICATIONS MANAGER from Last 3 Months Results * (ABNORMAL) CBC (11/05/2022 4:04 AM TELECOMMUNICATIONS MANAGER) Only the most recent of 3 results within the time period is included. Pathologist Signature Component Value Ref Test Method Analysis Performed A t Range Time White Blood Cells 8.3 4.5 - 11/05/2022 [facility] DE PT PATH AND 11.0 4:58 AM LAB MEDICINE K/UL TELECOMMUNICATIONS MANAGER RBC 3.63 (L) 4.4 - 11/05/2022 [facility] DEPT PAT H AND 5.5 M/UL 4:58 AM LAB MEDICINE TELECOMMUNICATIONS MANAGER Hemoglobin 12.0 (L) 13.5 - 11/05/2022 [facility] DEPT PAT H AND 16.5 4:58 AM LAB MEDICINE GM/DL TELECOMMUNICATIONS MANAGER Hematocrit 35.7 (L) 40 - 50 11/05/2022 [facility] DEPT PAT H AND % 4:58 AM LAB MEDICINE TELECOMMUNICATIONS MANAGER MCV 98.3 80 - 100 11/05/2022 [facility] DEPT PAT H AND FL 4:58 AM LAB MEDICINE TELECOMMUNICATIONS MANAGER MCH 32.9 26 - 34 11/05/2022 [facility] DEPT PAT H AND PG 4:58 AM LAB MEDICINE TELECOMMUNICATIONS MANAGER MCHC 33.5 32.0 - 11/05/2022 [facility] DEPT PAT H AND 36.0 4:58 AM LAB MEDICINE G/DL TELECOMMUNICATIONS MANAGER RDW 13.8 11 - 15 11/05/2022 [facility] DEPT PAT H AND % 4:58 AM LAB MEDICINE TELECOMMUNICATIONS MANAGER Platelet Count 333 150 - 11/05/2022 [facility] DEPT PATH AND 400 K/UL 4:58 AM LAB MEDICINE TELECOMMUNICATIONS MANAGER MPV 8.9 7 - 11 11/05/2022 [facility] DEPT PAT H AND FL 4:58 AM LAB MEDICINE TELECOMMUNICATIONS MANAGER Anatomical Location / Laterality Collection Method / Volume Eva ection Time Received Time Specimen (Source) BLOOD / Unknown 11/05/2022 4:04 AM TELECOMMUNICATIONS MANAGER 11/05/20 4:05 AM TELECOMMUNICATIONS MANAGER Jose Manuel Montague MD LABORATORY ORDERABLES City/State/ZIP Code Phone Number Performing [place] [address] [facility] DEPT PATH AND [address] LAB MEDICINE * (ABNORMAL) COMPREHENSIVE METABOLIC PANEL (11/05/2022 4:04 AM TELECOMMUNICATIONS MANAGER) Only the most recent of 7 results within the time period is included. Pathologist Signature Component Value Ref Test Method Analysis Performed A t Range Time Sodium 141 137 - 11/05/2022 [facility] DEPT PAT H AND 147 5:19 AM LAB MEDICINE MMOL/L TELECOMMUNICATIONS MANAGER Potassium 3.5 3.5 - 11/05/2022 [facility] DEPT PAT H AND 5.1 5:19 AM LAB MEDICINE MMOL/L TELECOMMUNICATIONS MANAGER Chloride 105 98 - 110 11/05/2022 [facility] DEPT PAT H AND MMOL/L 5:19 AM LAB MEDICINE TELECOMMUNICATIONS MANAGER Glucose 95 70 - 100 11/05/2022 [facility] DEPT PAT H AND MG/DL 5:19 AM LAB MEDICINE TELECOMMUNICATIONS MANAGER Blood Urea Nitrogen 21 7 - 25 11/05/2022 [facility] DEPT PATH AND MG/DL 5:19 AM LAB MEDICINE TELECOMMUNICATIONS MANAGER Creatinine 0.77 0.4 - 11/05/2022 [facility] DEPT PAT H AND 1.24 5:19 AM LAB MEDICINE MG/DL TELECOMMUNICATIONS MANAGER Calcium 8.9 8.5 - 11/05/2022 [facility] DEPT PAT H AND 10.6 5:19 AM LAB MEDICINE MG/DL TELECOMMUNICATIONS MANAGER Total Protein 6.8 6.0 - 11/05/2022 [facility] DEPT P ATH AND 8.0 G/DL 5:19 AM LAB MEDICINE TELECOMMUNICATIONS MANAGER Total Bilirubin 0.5 0.3 - 11/05/2022 [facility] DEPT PATH AND 1.2 5:19 AM LAB MEDICINE MG/DL TELECOMMUNICATIONS MANAGER Albumin 3.4 (L) 3.5 - 11/05/2022 [facility] DEPT PAT H AND 5.0 G/DL 5:19 AM LAB MEDICINE TELECOMMUNICATIONS MANAGER Alk Phosphatase 105 25 - 110 11/05/2022 [facility] DEPT PATH AND U/L 5:19 AM LAB MEDICINE TELECOMMUNICATIONS MANAGER AST (SGOT) 62 (H) 7 - 40 11/05/2022 [facility] DEPT PAT H AND U/L 5:19 AM LAB MEDICINE TELECOMMUNICATIONS MANAGER CO2 22 21 - 30 11/05/2022 [facility] DEPT PAT H AND MMOL/L 5:19 AM LAB MEDICINE TELECOMMUNICATIONS MANAGER ALT (SGPT) 54 7 - 56 11/05/2022 [facility] DEPT PAT H AND U/L 5:19 AM LAB MEDICINE TELECOMMUNICATIONS MANAGER Anion Gap 14 (H) 3 - 12 11/05/2022 [facility] DEPT PAT H AND 5:19 AM LAB MEDICINE TELECOMMUNICATIONS MANAGER eGFR >60 >60 11/05/2022 [facility] DEPT PAT H AND mL/min 5:19 AM LAB MEDICINE TELECOMMUNICATIONS MANAGER Comment: eGFR calculated using the CKD-EPIcr_R equation Anatomical Location / Laterality Collection Method / Volume Eva ection Time Received Time Specimen (Source) BLOOD / Unknown 11/05/2022 4:04 AM TELECOMMUNICATIONS MANAGER 11/05/20 4:05 AM TELECOMMUNICATIONS MANAGER Jose Manuel Montague MD LABORATORY ORDERABLES City/State/ZIP Code Phone Number Per[place] [address] [facility] DEPT PATH AND [address] [facility] LAB MEDICINE * (ABNORMAL) CBC AND DIFF (11/03/2022 4:13 AM TELECOMMUNICATIONS MANAGER) Only the most recent of 10 results within the time period is included. Pathologist Signature Component Value Ref Test Method Analysis Performed A t Range Time White Blood Cells 9.0 4.5 - 11/03/2022 [facility] DE PT PATH AND 11.0 5:08 AM LAB MEDICINE K/UL TELECOMMUNICATIONS MANAGER RBC 3.59 (L) 4.4 - 11/03/2022 [facility] DEPT PAT H AND 5.5 M/UL 5:08 AM LAB MEDICINE TELECOMMUNICATIONS MANAGER Hemoglobin 11.9 (L) 13.5 - 11/03/2022 [facility] DEPT PAT H AND 16.5 5:08 AM LAB MEDICINE GM/DL TELECOMMUNICATIONS MANAGER Hematocrit 35.3 (L) 40 - 50 11/03/2022 [facility] DEPT PAT H AND % 5:08 AM LAB MEDICINE TELECOMMUNICATIONS MANAGER MCV 98.3 80 - 100 11/03/2022 [facility] DEPT PAT H AND FL 5:08 AM LAB MEDICINE TELECOMMUNICATIONS MANAGER MCH 33.1 26 - 34 11/03/2022 [facility] DEPT PAT H AND PG 5:08 AM LAB MEDICINE TELECOMMUNICATIONS MANAGER MCHC 33.7 32.0 - 11/03/2022 [facility] DEPT PAT H AND 36.0 5:08 AM LAB MEDICINE G/DL TELECOMMUNICATIONS MANAGER RDW 14.1 11 - 15 11/03/2022 [facility] DEPT PAT H AND % 5:08 AM LAB MEDICINE TELECOMMUNICATIONS MANAGER Platelet Count 247 150 - 11/03/2022 [facility] DEPT PATH AND 400 K/UL 5:08 AM LAB MEDICINE TELECOMMUNICATIONS MANAGER MPV 9.3 7 - 11 11/03/2022 [facility] DEPT PAT H AND FL 5:08 AM LAB MEDICINE TELECOMMUNICATIONS MANAGER Neutrophils 79 (H) 41 - 77 11/03/2022 [facility] DEPT PAT H AND % 5:08 AM LAB MEDICINE TELECOMMUNICATIONS MANAGER Lymphocytes 7 (L) 24 - 44 11/03/2022 [facility] DEPT PAT H AND % 5:08 AM LAB MEDICINE TELECOMMUNICATIONS MANAGER Monocytes 12 4 - 12 % 11/03/2022 [facility] DEPT PAT H AND 5:08 AM LAB MEDICINE TELECOMMUNICATIONS MANAGER Eosinophils 2 0 - 5 % 11/03/2022 [facility] DEPT PAT H AND 5:08 AM LAB MEDICINE TELECOMMUNICATIONS MANAGER Basophils 0 0 - 2 % 11/03/2022 [facility] DEPT PAT H AND 5:08 AM LAB MEDICINE TELECOMMUNICATIONS MANAGER Absolute Neutrophil 7.11 (H) 1.8 - 11/03/2022 [facility] DEPT PATH AND Count 7.0 K/UL 5:08 AM LAB MEDICINE TELECOMMUNICATIONS MANAGER Absolute Lymph Count 0.60 (L) 1.0 - 11/03/2022 [facility] DEPT PATH AND 4.8 K/UL 5:08 AM LAB MEDICINE TELECOMMUNICATIONS MANAGER Absolute Monocyte 1.12 (H) 0 - 0.80 11/03/2022 [facility] DE PT PATH AND Count K/UL 5:08 AM LAB MEDICINE TELECOMMUNICATIONS MANAGER Absolute Eosinophil 0.19 0 - 0.45 11/03/2022 [facility] DEPT PATH AND Count K/UL 5:08 AM LAB MEDICINE TELECOMMUNICATIONS MANAGER Absolute Basophil 0.02 0 - 0.20 11/03/2022 [facility] DE PT PATH AND Count K/UL 5:08 AM LAB MEDICINE TELECOMMUNICATIONS MANAGER Anatomical Location / Laterality Collection Method / Volume Eva ection Time Received Time Specimen (Source) BLOOD / Unknown 11/03/2022 4:13 AM TELECOMMUNICATIONS MANAGER 11/03/20 4:14 AM TELECOMMUNICATIONS MANAGER Sahil Mejia MD LABORATORY ORDERABLES City/State/ZIP Code Phone Number Performing [place] [address] [facility] [address] [facility] MEDICINE * CT CHEST WO CONTRAST (10/31/2022 2:41 PM TELECOMMUNICATIONS MANAGER) Modality Anatomical Region Laterality Computed Tomography CHEST Anatomical Location / Laterality Collection Method / Volume Eva ection Time Received Time Specimen (Source) 10/31/2022 2:54 PM TELECOMMUNICATIONS MANAGER Impressions 10/31/2022 3:29 PM TELECOMMUNICATIONS MANAGER 1. Slight decrease in size of right [...] 10/31/2022 2:54 PM. Narrative 10/31/2022 3:[address] CHEST Clinical Indication: navigational bronchoscopic biopsy [...] Similar mediastinal and hilar lymphadenopathy with a digital sales representative right paratracheal node measuring 1.6 cm [...] Similar mediastinal and hilar lymphadenopathy with a digital sales representative right paratracheal node measuring 1.6 cm [...] CT ORDERABLES * BRONCHOSCOPY (10/31/2022 2:34 PM TELECOMMUNICATIONS MANAGER) Pathologist Signature Component Value Ref Test Method Analysis Performed A t Range Time Provation Report Patient [facility] OTHER RESULTS Name: Scot Joe Procedure Date: 10/31/2022 2:34 PM CSN: [id number] Date of : 1940 Gender: Male Attending Physician: Delano Sawant , , [id number] Procedure: Bronchoscopy Indications: Right upper lobe mass Providers: Delano Sawant (Doctor), Carlos Hernandez (Fellow), Elisabeth Cordero (Nurse), Danuta Pearson (Brass Cutter) Referring Physician: Referral Self Medications: Tetricaine 0.25%/Epinep [...] FNA samples were obtained using an Olympus ViziShot 21 gauge needle in the left interlobar [...] Received Time Specimen (Source) 10/31/2022 2:34 PM TELECOMMUNICATIONS MANAGER Referral Self GI BRONCHOSCOPY ORDERABLES City/State/ZIP Code Phone Number Performing Address Organization [facility] OTHER RESULTS * NM PET SCAN TORSO (SKULL-THIGHS) (10/30/2022 2:16 PM TELECOMMUNICATIONS MANAGER) Modality Anatomical Region Laterality Nuclear Medicine BODY/CAP Anatomical Location / Laterality Collection Method / Volume Eva ection Time Received Time Specimen (Source) 10/30/2022 5:37 PM TELECOMMUNICATIONS MANAGER Impressions 10/31/2022 9:33 AM TELECOMMUNICATIONS MANAGER Limited examination due to diffuse muscular uptake [...] 10/30/2022 5:37 PM. Narrative 10/31/2022 9:33 AM TELECOMMUNICATIONS MANAGER NM PET SCAN TORSO (SKULL-THIGHS) Radiopharmaceutical: 11.9 mCi F-18 Fluorodeoxyglucose (FDG) IV. Clinical Indication: Right upper lobe lung mass. Technique: PET imaging was performed from the skull to thighs 113 minutes after tracer administration. Low dose non-contrast CT imaging was performed for attenuation correction and localization purposes. Current mean hepatic SUV (reported for quality control coordinator purposes) is 1.4. Blood glucose level (at [...] mean hepatic SUV (reported for quality control coordinator purposes) is 1.4. Blood glucose level (at [...] on 10/30/2022 5:37 PM. Rafal Amaya MD NUC MED ORDERABLES * (ABNORMAL) BASIC METABOLIC PANEL (10/30/2022 4:21 AM TELECOMMUNICATIONS MANAGER) Only the most recent of 5 results within the time period is included. Pathologist Signature Component Value Ref Test Method Analysis Performed A t Range Time Sodium 141 137 - 10/30/2022 [facility] DEPT PAT H AND 147 6:07 AM LAB MEDICINE MMOL/L TELECOMMUNICATIONS MANAGER Potassium 4.2 3.5 - 10/30/2022 [facility] DEPT PAT H AND 5.1 6:07 AM LAB MEDICINE MMOL/L TELECOMMUNICATIONS MANAGER Chloride 110 98 - 110 10/30/2022 [facility] DEPT PAT H AND MMOL/L 6:07 AM LAB MEDICINE TELECOMMUNICATIONS MANAGER CO2 16 (L) 21 - 30 10/30/2022 [facility] DEPT PAT H AND MMOL/L 6:07 AM LAB MEDICINE TELECOMMUNICATIONS MANAGER Anion Gap 15 (H) 3 - 12 10/30/2022 [facility] DEPT PAT H AND 6:07 AM LAB MEDICINE TELECOMMUNICATIONS MANAGER Glucose 67 (L) 70 - 100 10/30/2022 [facility] DEPT PAT H AND MG/DL 6:07 AM LAB MEDICINE TELECOMMUNICATIONS MANAGER Blood Urea Nitrogen 26 (H) 7 - 25 10/30/2022 [facility] DEPT PATH AND MG/DL 6:07 AM LAB MEDICINE TELECOMMUNICATIONS MANAGER Creatinine 0.97 0.4 - 10/30/2022 [facility] DEPT PAT H AND 1.24 6:07 AM LAB MEDICINE MG/DL TELECOMMUNICATIONS MANAGER Calcium 8.5 8.5 - 10/30/2022 [facility] DEPT PAT H AND 10.6 6:07 AM LAB MEDICINE MG/DL TELECOMMUNICATIONS MANAGER eGFR >60 >60 10/30/2022 [facility] DEPT PAT H AND mL/min 6:07 AM LAB MEDICINE TELECOMMUNICATIONS MANAGER Comment: eGFR calculated using the CKD-EPIcr_R equation Anatomical Location / Laterality Collection Method / Volume Eva ection Time Received Time Specimen (Source) BLOOD / Unknown 10/30/2022 4:21 AM TELECOMMUNICATIONS MANAGER 10/30/20 4:22 AM TELECOMMUNICATIONS MANAGER Chary Smith MD LABORATORY ORDERABLES City/State/ZIP Code Phone Number Performing [place] [address] [facility] DEPT PATH AND 4000 [a][employer] [facility] LAB MEDICINE * ANSELMO W/O CONTRAST (10/29/2022 3:47 PM TELECOMMUNICATIONS MANAGER) Pathologist Signature Component Value Ref Test Method [...] Time Specimen (Source) Narrative 10/29/2022 5:34 PM TELECOMMUNICATIONS MANAGER ANSELMO: 1. There was no thrombus visualized [...] layered. Portillo March MD ECHO ORDERABLES * IR CEREBRAL ANEURYSM EMBOLIZATION (10/28/2022 9:46 AM TELECOMMUNICATIONS MANAGER) Modality Anatomical Region Laterality X-Ray Angiography Anatomical Location / Laterality Collection Method / Volume Eva ection Time Received Time Specimen (Source) 10/29/2022 7:22 PM TELECOMMUNICATIONS MANAGER Narrative 10/29/2022 7:37 PM TELECOMMUNICATIONS MANAGER Date of Service: 10/28/2022 Surgeon: Portillo March MD Dairy Husbandry Teacher: None Preoperative Diagnosis: 1. Right acute on [...] Omnipaque-300 Radiation Dose: 1808 mGy Indications: SCOT JOE is a 82 years Male who presents [...] was used to place a Terumo 6 Citizen [place] slender sheath in the vessel. All bubbles [...] of heparin were given IV. A 5 Citizen [place] Lundy 2 select diagnostic catheter was introduced. [...] catheter. This allowed advancement of the 5 Citizen [place] diagnostic catheter into the distal external carotid [...] Portillo March M.D. on 10/29/2022 7:22 PM. Procedure Note Portillo March MD - 10/29/2022 Date of Service: 10/28/2022 Surgeon: Portillo March MD Dairy Husbandry Teacher: None Preoperative Diagnosis: 1. Right acute on [...] Omnipaque-300 Radiation Dose: 1808 mGy Indications: SCOT JOE is a 82 years Male who presents [...] was used to place a Terumo 6 Citizen [place] slender sheath in the vessel. All bubbles [...] of heparin were given IV. A 5 Citizen [place] Lundy 2 select diagnostic catheter was introduced. [...] catheter. This allowed advancement of the 5 Citizen [place] diagnostic catheter into the distal external carotid [...] March M.D. on 10/29/2022 7:22 PM. Isamar K Manter IR ORDERABLES PROGRAM CHECKER-BILINGUAL ELEMENTARY SCHOOL TEACHER * TELEMETRY STRIPS-SCAN (10/28/2022 12:00 AM TELECOMMUNICATIONS MANAGER) Narrative 10/28/2022 12:00 AM TELECOMMUNICATIONS MANAGER Ordered by an unspecified provider. Scanned Document PROCEDURE DUMMY ORDERS * TELEMETRY STRIPS-SCAN (10/28/2022 12:00 AM TELECOMMUNICATIONS MANAGER) Narrative 10/28/2022 12:00 AM TELECOMMUNICATIONS MANAGER Ordered by an unspecified provider. Scanned Document PROCEDURE DUMMY ORDERS * TELEMETRY STRIPS-SCAN (10/28/2022 12:00 AM TELECOMMUNICATIONS MANAGER) Narrative 10/28/2022 12:00 AM TELECOMMUNICATIONS MANAGER Ordered by an unspecified provider. Scanned Document PROCEDURE DUMMY ORDERS * TELEMETRY STRIPS-SCAN (10/28/2022 12:00 AM TELECOMMUNICATIONS MANAGER) Narrative 10/28/2022 12:00 AM TELECOMMUNICATIONS MANAGER Ordered by an unspecified provider. Scanned Document PROCEDURE DUMMY ORDERS * TELEMETRY STRIPS-SCAN (10/28/2022 12:00 AM TELECOMMUNICATIONS MANAGER) Narrative 10/28/2022 12:00 AM TELECOMMUNICATIONS MANAGER Ordered by an unspecified provider. Scanned Document PROCEDURE DUMMY ORDERS * TELEMETRY STRIPS-SCAN (10/28/2022 12:00 AM TELECOMMUNICATIONS MANAGER) Narrative 10/28/2022 12:00 AM TELECOMMUNICATIONS MANAGER Ordered by an unspecified provider. Scanned Document PROCEDURE DUMMY ORDERS * TELEMETRY STRIPS-SCAN (10/28/2022 12:00 AM TELECOMMUNICATIONS MANAGER) Narrative 10/28/2022 12:00 AM TELECOMMUNICATIONS MANAGER Ordered by an unspecified provider. Scanned Document PROCEDURE DUMMY ORDERS * TELEMETRY STRIPS-SCAN (10/28/2022 12:00 AM TELECOMMUNICATIONS MANAGER) Narrative 10/28/2022 12:00 AM TELECOMMUNICATIONS MANAGER Ordered by an unspecified provider. Scanned Document PROCEDURE DUMMY ORDERS * TELEMETRY STRIPS-SCAN (10/28/2022 12:00 AM TELECOMMUNICATIONS MANAGER) Narrative 10/28/2022 12:00 AM TELECOMMUNICATIONS MANAGER Ordered by an unspecified provider. Scanned Document PROCEDURE DUMMY ORDERS * TELEMETRY STRIPS-SCAN (10/28/2022 12:00 AM TELECOMMUNICATIONS MANAGER) Narrative 10/28/2022 12:00 AM TELECOMMUNICATIONS MANAGER Ordered by an unspecified provider. Scanned Document PROCEDURE DUMMY ORDERS * TELEMETRY STRIPS-SCAN (10/28/2022 12:00 AM TELECOMMUNICATIONS MANAGER) Narrative 10/28/2022 12:00 AM TELECOMMUNICATIONS MANAGER Ordered by an unspecified provider. Scanned Document PROCEDURE DUMMY ORDERS * TELEMETRY STRIPS-SCAN (10/28/2022 12:00 AM TELECOMMUNICATIONS MANAGER) Narrative 10/28/2022 12:00 AM TELECOMMUNICATIONS MANAGER Ordered by an unspecified provider. Scanned Document PROCEDURE DUMMY ORDERS * TELEMETRY STRIPS-SCAN (10/28/2022 12:00 AM TELECOMMUNICATIONS MANAGER) Narrative 10/28/2022 12:00 AM TELECOMMUNICATIONS MANAGER Ordered by an unspecified provider. Scanned Document PROCEDURE DUMMY ORDERS * TELEMETRY STRIPS-SCAN (10/28/2022 12:00 AM TELECOMMUNICATIONS MANAGER) Narrative 10/28/2022 12:00 AM TELECOMMUNICATIONS MANAGER Ordered by an unspecified provider. Scanned Document PROCEDURE DUMMY ORDERS * TELEMETRY STRIPS-SCAN (10/28/2022 12:00 AM TELECOMMUNICATIONS MANAGER) Narrative 10/28/2022 12:00 AM TELECOMMUNICATIONS MANAGER Ordered by an unspecified provider. Scanned Document PROCEDURE DUMMY ORDERS * TELEMETRY STRIPS-SCAN (10/28/2022 12:00 AM TELECOMMUNICATIONS MANAGER) Narrative 10/28/2022 12:00 AM TELECOMMUNICATIONS MANAGER Ordered by an unspecified provider. Scanned Document PROCEDURE DUMMY ORDERS * TELEMETRY STRIPS-SCAN (10/28/2022 12:00 AM TELECOMMUNICATIONS MANAGER) Narrative 10/28/2022 12:00 AM TELECOMMUNICATIONS MANAGER Ordered by an unspecified provider. Scanned Document PROCEDURE DUMMY ORDERS * TELEMETRY STRIPS-SCAN (10/28/2022 12:00 AM TELECOMMUNICATIONS MANAGER) Narrative 10/28/2022 12:00 AM TELECOMMUNICATIONS MANAGER Ordered by an unspecified provider. Scanned Document PROCEDURE DUMMY ORDERS * TELEMETRY STRIPS-SCAN (10/28/2022 12:00 AM TELECOMMUNICATIONS MANAGER) Narrative 10/28/2022 12:00 AM TELECOMMUNICATIONS MANAGER Ordered by an unspecified provider. Scanned Document PROCEDURE DUMMY ORDERS * TELEMETRY STRIPS-SCAN (10/28/2022 12:00 AM TELECOMMUNICATIONS MANAGER) Narrative 10/28/2022 12:00 AM TELECOMMUNICATIONS MANAGER Ordered by an unspecified provider. Scanned Document PROCEDURE DUMMY ORDERS * TELEMETRY STRIPS-SCAN (10/28/2022 12:00 AM TELECOMMUNICATIONS MANAGER) Narrative 10/28/2022 12:00 AM TELECOMMUNICATIONS MANAGER Ordered by an unspecified provider. Scanned Document PROCEDURE DUMMY ORDERS * TELEMETRY STRIPS-SCAN (10/28/2022 12:00 AM TELECOMMUNICATIONS MANAGER) Narrative 10/28/2022 12:00 AM TELECOMMUNICATIONS MANAGER Ordered by an unspecified provider. Scanned Document PROCEDURE DUMMY ORDERS * TELEMETRY STRIPS-SCAN (10/28/2022 12:00 AM TELECOMMUNICATIONS MANAGER) Narrative 10/28/2022 12:00 AM TELECOMMUNICATIONS MANAGER Ordered by an unspecified provider. Scanned Document PROCEDURE DUMMY ORDERS * TELEMETRY STRIPS-SCAN (10/28/2022 12:00 AM TELECOMMUNICATIONS MANAGER) Narrative 10/28/2022 12:00 AM TELECOMMUNICATIONS MANAGER Ordered by an unspecified provider. Scanned Document PROCEDURE DUMMY ORDERS * CT HEAD WO CONTRAST (10/27/2022 7:46 PM TELECOMMUNICATIONS MANAGER) Only the most recent of 5 results within the time period is included. Modality Anatomical Region Laterality Computed Tomography Head Anatomical Location / Laterality Collection Method / Volume Eva ection Time Received Time Specimen (Source) 10/27/2022 7:38 PM TELECOMMUNICATIONS MANAGER Impressions 10/27/2022 8:05 PM TELECOMMUNICATIONS MANAGER 1. No acute intracranial hemorrhage. 2. 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 Luong discussed these findings with Dr. Rbo by telephone at 7:48 PM on 10/27/2022. By my electronic signature, I attest that I have personally reviewed the images for this examination and formulated the interpretations and opinions expressed in this report Finalized by Eric Nava M.D. on 10/27/2022 8:05 PM. Dictated by Fernando Luong M.D. on 10/27/2022 7:38 PM. Narrative 10/27/2022 8:05 PM TELECOMMUNICATIONS MANAGER EXAM: CT HEAD HISTORY: Decreased consciousness. Stroke activation. TECHNIQUE: Multiple contiguous axial images were obtained of the brain without intravenous contrast. COMPARISON: CT and MRI head 10/25/2022. 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 without evidence of significant hemorrhagic [...] Portillo March MD CT ORDERABLES * (ABNORMAL) IRON + BINDING CAPACITY + %SAT+ FERRITIN (10/26/2022 9:59 AM TELECOMMUNICATIONS MANAGER) Pathologist Signature Component Value Ref Test Method Analysis Performed A t Range Time Iron 28 (L) 50 - 185 10/26/2022 [facility] DEPT PAT H AND MCG/DL 10:53 AM LAB MEDICINE TELECOMMUNICATIONS MANAGER Iron Binding-TIBC 359 270 - 10/26/2022 [facility] DE PT PATH AND 380 10:53 AM LAB MEDICINE MCG/DL TELECOMMUNICATIONS MANAGER % Saturation 8 (L) 28 - 42 10/26/2022 [facility] DEPT PA TH AND % 10:53 AM LAB MEDICINE TELECOMMUNICATIONS MANAGER Ferritin 38 30 - 300 10/26/2022 [facility] DEPT PAT H AND NG/ML 11:09 AM LAB MEDICINE TELECOMMUNICATIONS MANAGER Anatomical Location / Laterality Collection Method / Volume Eva ection Time Received Time Specimen (Source) BLOOD / Unknown 10/26/2022 9:59 AM TELECOMMUNICATIONS MANAGER 10/26/20 10:00 AM TELECOMMUNICATIONS MANAGER Connie Dahl MD LABORATORY ORDERABLES City/State/ZIP Code Phone Number Performing [place] [address] [facility] DEPT PATH AND [address] [facility] LAB MEDICINE * PERIPHERAL SMEAR (10/26/2022 9:59 AM TELECOMMUNICATIONS MANAGER) Pathologist Signature Component Value Ref Test Method Analysis Performed A t Range Time Peripheral Smear WHITE BLOOD 10/28/2022 [facility] DEPT PA TH AND CELLS APPEAR 9:59 PM LAB MEDICINE NORMAL, WITH TELECOMMUNICATIONS MANAGER MILD LYMPHOPENIA AND MILD INCREASE IN MATURE MONOCYTES. SEVERE NORMOCHROMIC ANEMIA AND MILD THROMBOCYTOP ENIA ARE PRESENT, WITHOUT SCHISTOCYTES OR MORPHOLOGIC FEATURES OF A HEMOLYTIC PROCESS. Pathologist INTERPRETED 10/28/2022 [facility] DEPT PATH AND Signature BY GENEVA 9:59 PM LAB MEDICINE [facility] TELECOMMUNICATIONS MANAGER M.D. By the PATH SIGNATURE ABOVE, I attest that I have personally formulated the final interpretati on expressed in this report and that the above diagnosis is based upon my examination of the slides and/or other material indicated in this report. Anatomical Location / Laterality Collection Method / Volume Eva ection Time Received Time Specimen (Source) BLOOD / Unknown 10/26/2022 9:59 AM TELECOMMUNICATIONS MANAGER 10/26/20 10:00 AM TELECOMMUNICATIONS MANAGER Connie Dahl MD LABORATORY ORDERABLES City/State/ZIP Code Phone Number Performing [place] [address] [facility] [address] [facility] LAB MEDICINE * FOLATE, SERUM (10/26/2022 9:59 AM TELECOMMUNICATIONS MANAGER) Pathologist Signature Component Value Ref Test Method Analysis Performed A t Range Time Serum Folate >22.3 >3.9 10/26/2022 [facility] DEPT PA TH AND NG/ML 11:21 AM LAB MEDICINE TELECOMMUNICATIONS MANAGER Anatomical Location / Laterality Collection Method / Volume Eva ection Time Received Time Specimen (Source) BLOOD / Unknown 10/26/2022 9:59 AM TELECOMMUNICATIONS MANAGER 10/26/20 22 10:00 AM TELECOMMUNICATIONS MANAGER Connie Dahl MD LABORATORY ORDERABLES City/State/ZIP Code Phone Number Per[place] [address] [facility] AND [address] [facility] LAB MEDICINE * (ABNORMAL) VITAMIN B12 (10/26/2022 9:59 AM TELECOMMUNICATIONS MANAGER) Pathologist Signature Component Value Ref Test Method Analysis Performed A t Range Time Vitamin B12 1,331 (H) 180 - 10/26/2022 [facility] DEPT PAT H AND 914 11:21 AM LAB MEDICINE PG/ML TELECOMMUNICATIONS MANAGER Anatomical Location / Laterality Collection Method / Volume Eva ection Time Received Time Specimen (Source) BLOOD / Unknown 10/26/2022 9:59 AM TELECOMMUNICATIONS MANAGER 10/26/20 10:00 AM TELECOMMUNICATIONS MANAGER Connie Dahl MD LABORATORY ORDERABLES City/State/ZIP Code Phone Number Performing [place] [address] [facility] AND [address] [facility] LAB MEDICINE * (ABNORMAL) CT CHEST W CONTRAST (10/26/2022 4:20 AM TELECOMMUNICATIONS MANAGER) Modality Anatomical Region Laterality Computed Tomography CHEST Anatomical Location / Laterality Collection Method / Volume Eva ection Time Received Time Specimen (Source) 10/26/2022 8:23 AM TELECOMMUNICATIONS MANAGER Impressions 10/26/2022 8:35 AM TELECOMMUNICATIONS MANAGER 1. Small right upper lobe mass is [...] 10/26/2022 8:23 AM. Narrative 10/26/2022 8:[address] Chest Clinical Indication: Right upper lobe [...] moderate mediastinal and bilateral hilar lymphadenopathy. A digital sales representative left lower paratracheal conglomerate measures 3.7 [...] moderate mediastinal and bilateral hilar lymphadenopathy. A digital sales representative left lower paratracheal conglomerate measures 3.7 [...] 10/26/2022 8:[address] ORDERABLES PROGRAM CHECKER-BILINGUAL ELEMENTARY SCHOOL TEACHER * MRI HEAD WO CONTRAST (10/25/2022 12:30 PM TELECOMMUNICATIONS MANAGER) Modality Anatomical Region Laterality Magnetic Resonance Head Anatomical Location / Laterality Collection Method / Volume Eva ection Time Received Time Specimen (Source) 10/25/2022 12:46 PM TELECOMMUNICATIONS MANAGER Impressions 10/25/2022 1:00 PM TELECOMMUNICATIONS MANAGER 1. 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 Unchanged associated right occipitotemporal mass [...] Hunter Martinez DO on 10/25/2022 12:46 PM. Narrative 10/25/2022 1:00 PM TELECOMMUNICATIONS MANAGER EXAM: MRI BRAIN HISTORY: Right posterior cerebral [...] with a dominant small to moderate-sized right WOOD AND HARDWARE OUTFITTER territory infarct. Unchanged associated right occipitotemporal mass [...] DO on 10/25/2022 1:00 PM. Dictated by Hutner Martinez DO on 10/25/2022 12:46 PM. Portillo March MD MR ORDERABLES * 2D + DOPPLER ECHO W/ CONTRAST (10/25/2022 12:04 PM TELECOMMUNICATIONS MANAGER) Pathologist Signature Component Value Ref Test Method [...] OUTSIDE L AB 4.0 cm Mr max shaq 6.42 m/s OTHER OUTSIDE L AB MV Peak A Shaq 1.56 m/s OTHER OUTSIDE L AB MV Peak E Shaq PW 1.13 m/s OTHER OUTSIDE LAB MV [...] RV SYSTOLIC PRESSURE 25 OTHER OUTSIDE LAB HAILE'S BIPLANE EF 82 % OTHER OUT SIDE LAB Modality Anatomical Region Laterality Ultrasound Anatomical Location / Laterality Collection Method / Volume Eva ection Time Received Time Specimen (Source) Narrative 10/25/2022 12:46 PM TELECOMMUNICATIONS MANAGER 1. Normal LV size and hyperdynamic systolic [...] function is hyperdynamic. The ejection fraction by Haile's biplane method is 82%. Grade II (moderate) [...] CTA NECK WO/W CONT (10/25/2022 8:45 AM TELECOMMUNICATIONS MANAGER) Modality Anatomical Region Laterality Computed Tomography HEAD/NECK Anatomical Location / Laterality Collection Method / Volume Eva ection Time Received Time Specimen (Source) 10/25/2022 9:05 AM TELECOMMUNICATIONS MANAGER Impressions 10/25/2022 9:49 AM TELECOMMUNICATIONS MANAGER CTA head: 1. Redemonstration of a small-moderate ly sized subacute right WOOD AND HARDWARE OUTFITTER territory infarct without evidence of hemorrhagic conversion. [...] right upper lobe opacity and patchy underlying wmwygwawhqf-mwwx-yz-bud opacities throughout the visualized lungs. There is [...] 10/25/2022 9:05 AM. Narrative 10/25/2022 9:49 AM TELECOMMUNICATIONS MANAGER EXAM: CTA HEAD AND NECK HISTORY: Stroke [...] sized subacute right basal and mesial occipitotemporal WOOD AND HARDWARE OUTFITTER territory infarct and a tiny recent right [...] mediastinal and hilar granulomas. Procedure Note Hunter Martinez DO - 10/25/2022 EXAM: CTA HEAD AND [...] sized subacute right basal and mesial occipitotemporal WOOD AND HARDWARE OUTFITTER territory infarct and a tiny recent right [...] of a small-moderatel y sized subacute right WOOD AND HARDWARE OUTFITTER territory infarct without evidence of hemorrhagic conversion. [...] right upper lobe opacity and patchy underlying ycasmzqnaru-zuxs-wi-bud opacities throughout the visualized lungs. There is [...] CTA HEAD WO/W CONT (10/25/2022 8:45 AM TELECOMMUNICATIONS MANAGER) Modality Anatomical Region Laterality Computed Tomography Head Anatomical Location / Laterality Collection Method / Volume Eva ection Time Received Time Specimen (Source) 10/25/2022 9:05 AM TELECOMMUNICATIONS MANAGER Impressions 10/25/2022 9:49 AM TELECOMMUNICATIONS MANAGER CTA head: 1. Redemonstration of a small-moderate ly sized subacute right WOOD AND HARDWARE OUTFITTER territory infarct without evidence of hemorrhagic conversion. [...] right upper lobe opacity and patchy underlying paggmwgpuum-pbjo-fd-bud opacities throughout the visualized lungs. There is [...] 10/25/2022 9:05 AM. Narrative 10/25/2022 9:49 AM TELECOMMUNICATIONS MANAGER EXAM: CTA HEAD AND NECK HISTORY: Stroke [...] sized subacute right basal and mesial occipitotemporal WOOD AND HARDWARE OUTFITTER territory infarct and a tiny recent right [...] sized subacute right basal and mesial occipitotemporal WOOD AND HARDWARE OUTFITTER territory infarct and a tiny recent right [...] of a small-moderatel y sized subacute right WOOD AND HARDWARE OUTFITTER territory infarct without evidence of hemorrhagic conversion. [...] right upper lobe opacity and patchy underlying mowmbhzqamz-pjmz-ew-bud opacities throughout the visualized lungs. There is [...] ORDERABLES * HEMOGLOBIN A1C (10/25/2022 7:12 AM TELECOMMUNICATIONS MANAGER) Pathologist Signature Component Value Ref Test Method Analysis Performed A t Range Time Hemoglobin A1C 5.7 4.0 - 10/25/2022 [facility] DEPT PATH AND 6.0 % 11:09 AM LAB MEDICINE TELECOMMUNICATIONS MANAGER Comment: The ADA recommends that most patients with type 1 and type 2 diabetes maintain an A1c level <7%. Anatomical Location / Laterality Collection Method / Volume Eva ection Time Received Time Specimen (Source) BLOOD / Unknown 10/25/2022 7:12 AM TELECOMMUNICATIONS MANAGER 10/25/20 7:13 AM TELECOMMUNICATIONS MANAGER Portillo March MD LABORATORY ORDERABLES City/State/ZIP Code Phone Number Performing [place] [address] [facility] DEPT PATH AND [address] [facility] LAB MEDICINE * (ABNORMAL) LIPID PROFILE (10/25/2022 7:12 AM TELECOMMUNICATIONS MANAGER) Pathologist Signature Component Value Ref Test Method Analysis Performed A t Range Time Cholesterol 115 <200 10/25/2022 [facility] DEPT PAT H AND MG/DL 8:05 AM LAB MEDICINE TELECOMMUNICATIONS MANAGER Triglycerides 190 (H) <150 10/25/2022 [facility] DEPT P ATH AND MG/DL 8:05 AM LAB MEDICINE TELECOMMUNICATIONS MANAGER HDL 25 (L) >40 10/25/2022 [facility] DEPT PAT H AND MG/DL 8:05 AM LAB MEDICINE TELECOMMUNICATIONS MANAGER LDL 62 <100 10/25/2022 [facility] DEPT PAT H AND mg/dL 8:05 AM LAB MEDICINE TELECOMMUNICATIONS MANAGER VLDL 38 MG/DL 10/25/2022 [facility] DEPT PAT H AND 8:05 AM LAB MEDICINE TELECOMMUNICATIONS MANAGER Non HDL Cholesterol 90 MG/DL 10/25/2022 [facility] DEPT PATH AND 8:05 AM LAB MEDICINE TELECOMMUNICATIONS MANAGER Comment: Calculated non-HDL Cholesterol (non-HDL-C) indirectly measures LDL-C, Lp(a), IDL-C, and VLDL-C. It is a surrogate marker for Apoprotein B. Goal should be less than 130 mg/dL. Anatomical Location / Laterality Collection Method / Volume Eav ection Time Received Time Specimen (Source) BLOOD / Unknown 10/25/2022 7:12 AM TELECOMMUNICATIONS MANAGER 10/25/20 7:13 AM TELECOMMUNICATIONS MANAGER Portillo March MD LABORATORY ORDERABLES City/State/ZIP Code Phone Number Performing [place] [address] [facility] AND [address] [facility] LAB MEDICINE * ECG 12-LEAD (10/24/2022 10:25 PM TELECOMMUNICATIONS MANAGER) Pathologist Signature Component Value Ref Test Method [...] Received Time Specimen (Source) 10/24/2022 10:25 PM TELECOMMUNICATIONS MANAGER 10/27/20 7:25 PM TELECOMMUNICATIONS MANAGER Impressions [facility] - 10/27/2022 7:25 PM TELECOMMUNICATIONS MANAGER Normal sinus rhythm Minimal voltage criteria for LVH, may be normal variant ( Juan product ) Anterior infarct , age undetermined Abnormal ECG When compared with ECG of 12-OCT-2022 18:47, Anterior infarct is now present ST no longer depressed in Lateral leads Confirmed by Ricardo Sparrow ([id number]) on 10/27/2022 7:25:55 PM Narrative Procedure Note Ricardo Sparrow MD - 10/27/2022 IMPRESSION Normal sinus rhythm Minimal voltage criteria for LVH, may be normal variant ( Juan product ) Anterior infarct , age undetermined Abnormal ECG When compared with ECG of 12-OCT-2022 18:47, Anterior infarct is now present ST no longer depressed in Lateral leads Confirmed by Ricardo Sparrow ([id number]) on 10/27/2022 7:25:55 PM Rigoberto N ECG ORDERABLES Taras MT[facility] City/State/ZIP Code Phone Number Performing Address Organization [facility] * CHEST SINGLE VIEW (10/24/2022 9:50 PM TELECOMMUNICATIONS MANAGER) Modality Anatomical Region Laterality Computed Radiography CHEST Anatomical Location / Laterality Collection Method / Volume Eva ection Time Received Time Specimen (Source) 10/24/2022 10:16 PM TELECOMMUNICATIONS MANAGER Impressions 10/24/2022 10:18 PM TELECOMMUNICATIONS MANAGER Patchy groundglass opacity scattered throughout both lungs concerning for diffuse infectious etiology versus pulmonary edema. Finalized by Gee Page MD, PhD on 10/24/2022 10:18 PM. Dictated by Gee Page MD, PhD on 10/24/2022 10:16 PM. Narrative 10/24/2022 10:18 PM TELECOMMUNICATIONS MANAGER CHEST SINGLE VIEW Clinical indication: concern for [...] 10:16 PM. Rigoberto N DIAGNOSTIC IMAGING ORDERABL ES [facility] * POC GLUCOSE (10/24/2022 9:40 PM TELECOMMUNICATIONS MANAGER) Pathologist Signature Component Value Ref Test Method Analysis Performed A t Range Time Glucose, POC 98 70 - 100 10/24/2022 [facility] DEPT PA TH AND MG/DL 9:42 PM LAB MEDICINE POC TELECOMMUNICATIONS MANAGER Anatomical Location / Laterality Collection Method / Volume Eva ection Time Received Time Specimen (Source) 10/24/2022 9:40 PM TELECOMMUNICATIONS MANAGER 10/24/20 9:42 PM TELECOMMUNICATIONS MANAGER Unknown Md Unknown OTHER LABORATORY City/State/ZIP Code Phone Number Performing Address Organization [address] [facility] LAB MEDICINE POC * CLEAR TOP EXTRA URINE TUBE (10/24/2022 9:38 PM TELECOMMUNICATIONS MANAGER) Only the most recent of 2 results within the time period is included. Anatomical Location / Laterality Collection Method / Volume Eva ection Time Received Time Specimen (Source) URINE SPECIMEN / Unknown 10/24/2022 9:38 PM TELECOMMUNICATIONS MANAGER 10/24/2022 9:50 PM TELECOMMUNICATIONS MANAGER Rigoberto Gomez URINE ORDERABLES Taras MT[facility] City/State/ZIP Code Phone Number Performing Address Organization [address] [facility]. LAB MEDICINE * UA LEOS TOP TUBE (10/24/2022 9:38 PM TELECOMMUNICATIONS MANAGER) Only the most recent of 2 results within the time period is included. Pathologist Signature Component Value Ref Test Method Analysis Performed A t Range Time UA Reflex Culture Criteria for 10/28/2022 [facility] DEPT P ATH AND reflex to 11:34 AM LAB MEDICINE culture are TELECOMMUNICATIONS MANAGER WBC>10, Positive Nitrite, and/or >=+1 leukocytes. If quantity is not sufficient, an addendum will follow. Anatomical Location / Laterality Collection Method / Volume Eva ection Time Received Time Specimen (Source) URINE SPECIMEN / Unknown 10/24/2022 9:38 PM TELECOMMUNICATIONS MANAGER 10/24/2022 9:50 PM TELECOMMUNICATIONS MANAGER Rigoberto N URINE ORDERABLES Taras MTZ [facility]/ZIP Code Phone Number Performing [place] [address] [facility] DEPT PATH AND [address] [facility] LAB MEDICINE * URINALYSIS MICROSCOPIC REFLEX TO CULTURE (10/24/2022 9:38 PM TELECOMMUNICATIONS MANAGER) Only the most recent of 2 results within the time period is included. Pathologist Signature Component Value Ref Test Method Analysis Performed A t Range Time WBCs,UA 0-2 0 - 2 10/24/2022 [facility] DEPT PAT H AND /HPF 10:20 PM LAB MEDICINE TELECOMMUNICATIONS MANAGER RBCs,UA PACKED 0 - 3 10/24/2022 [facility] DEPT PAT H AND /HPF 10:20 PM LAB MEDICINE TELECOMMUNICATIONS MANAGER Comment,UA Criteria for 10/24/2022 [facility] DEPT PATH AND reflex to 10:20 PM LAB MEDICINE culture are TELECOMMUNICATIONS MANAGER WBC>10, Positive Nitrite, and/or >=+1 leukocytes. If quantity is not sufficient, an addendum will follow. Squamous Epithelial 0-2 0 - 5 10/24/2022 [facility] DEPT PATH AND Cells 10:20 PM LAB MEDICINE TELECOMMUNICATIONS MANAGER Anatomical Location / Laterality Collection Method / Volume Eva ection Time Received Time Specimen (Source) URINE SPECIMEN / Unknown 10/24/2022 9:38 PM TELECOMMUNICATIONS MANAGER 10/24/2022 9:50 PM TELECOMMUNICATIONS MANAGER Rigoberto N URINE ORDERABLES Taras MTZ [facility]/ZIP Code Phone Number [place] [address] [facility] AND [address] [facility] LAB MEDICINE * (ABNORMAL) URINALYSIS DIPSTICK REFLEX TO CULTURE (10/24/2022 9:38 PM TELECOMMUNICATIONS MANAGER) Only the most recent of 2 results within the time period is included. Pathologist Signature Component Value Ref Test Method Analysis Performed A t Range Time Color,UA YELLOW 10/24/2022 [facility] DEPT PATH AND 10:20 PM LAB MEDICINE TELECOMMUNICATIONS MANAGER Turbidity,UA CLEAR CLEAR-CL 10/24/2022 [facility] DEPT PA TH AND EAR 10:20 PM LAB MEDICINE TELECOMMUNICATIONS MANAGER Specific 1.028 1.005 - 10/24/2022 [facility] DEPT PAT H AND [place]-Urine 1.030 10:20 PM LAB MEDICINE TELECOMMUNICATIONS MANAGER Comment: NOTE NEW REFERENCE RANGES pH,UA 5.0 5.0 - 10/24/2022 [facility] DEPT PAT H AND 8.0 10:20 PM LAB MEDICINE TELECOMMUNICATIONS MANAGER Protein,UA 2+ (A) NEG-NEG 10/24/2022 [facility] DEPT PAT H AND 10:20 PM LAB MEDICINE TELECOMMUNICATIONS MANAGER Glucose,UA NEG NEG-NEG 10/24/2022 [facility] DEPT PAT H AND 10:20 PM LAB MEDICINE TELECOMMUNICATIONS MANAGER Ketones,UA NEG NEG-NEG 10/24/2022 [facility] DEPT PAT H AND 10:20 PM LAB MEDICINE TELECOMMUNICATIONS MANAGER Bilirubin,UA NEG NEG-NEG 10/24/2022 [facility] DEPT PA TH AND 10:20 PM LAB MEDICINE TELECOMMUNICATIONS MANAGER Blood,UA 3+ (A) NEG-NEG 10/24/2022 [facility] DEPT PAT H AND 10:20 PM LAB MEDICINE TELECOMMUNICATIONS MANAGER Urobilinogen,UA NORMAL NORM-NOR 10/24/2022 [facility] DEPT PATH AND MAL 10:20 PM LAB MEDICINE TELECOMMUNICATIONS MANAGER Nitrite,UA NEG NEG-NEG 10/24/2022 [facility] DEPT PAT H AND 10:20 PM LAB MEDICINE TELECOMMUNICATIONS MANAGER Leukocytes,UA NEG NEG-NEG 10/24/2022 [facility] DEPT P ATH AND 10:20 PM LAB MEDICINE TELECOMMUNICATIONS MANAGER Urine Ascorbic Acid, NEG NEG-NEG 10/24/2022 [facility] DEPT PATH AND UA 10:20 PM LAB MEDICINE TELECOMMUNICATIONS MANAGER Anatomical Location / Laterality Collection Method / Volume Eva ection Time Received Time Specimen (Source) URINE SPECIMEN / Unknown 10/24/2022 9:38 PM TELECOMMUNICATIONS MANAGER 10/24/2022 9:50 PM TELECOMMUNICATIONS MANAGER Rigoberto N URINE ORDERABLES [facility] MT[facility] City/State/ZIP Code Phone Number [place] [address] [facility] DEPT PATH AND [address] [facility] LAB MEDICINE * TSH WITH FREE T4 REFLEX (10/24/2022 9:38 PM TELECOMMUNICATIONS MANAGER) Pathologist Signature Component Value Ref Test Method Analysis Performed A t Range Time TSH 1.43 0.35 - 10/24/2022 [facility] DEPT PAT H AND 5.00 10:32 PM LAB MEDICINE MCU/ML TELECOMMUNICATIONS MANAGER Anatomical Location / Laterality Collection Method / Volume Eva ection Time Received Time Specimen (Source) BLOOD / Unknown 10/24/2022 9:38 PM TELECOMMUNICATIONS MANAGER 10/24/20 9:47 PM TELECOMMUNICATIONS MANAGER Rigoberto Gomez LABORATORY ORDERABLES Taras MT[facility]/ZIP Code Phone Number Performing Address Organization [place], [place] [id number] [place] [address] AND [address] [facility] * PROTIME INR (PT) (10/24/2022 9:38 PM TELECOMMUNICATIONS MANAGER) Pathologist Signature Component Value Ref Test Method Analysis Performed A t Range Time Protime 13.5 9.5 - 10/24/2022 [facility] DEPT PAT H AND 14.2 SEC 10:11 PM LAB MEDICINE TELECOMMUNICATIONS MANAGER INR 1.2 0.8 - 10/24/2022 [facility] DEPT PAT H AND 1.2 10:11 PM LAB MEDICINE TELECOMMUNICATIONS MANAGER Anatomical Location / Laterality Collection Method / Volume Eva ection Time Received Time Specimen (Source) BLOOD / Unknown 10/24/2022 9:38 PM TELECOMMUNICATIONS MANAGER 10/24/20 9:47 PM TELECOMMUNICATIONS MANAGER Rigoberto Gomez LABORATORY ORDERABLES Taras MT[facility]/ZIP Code Phone Number Performing Address Organization [place] [id number] [place] [address] PATH AND [address] [facility] * MAGNESIUM (10/24/2022 9:38 PM TELECOMMUNICATIONS MANAGER) Pathologist Signature Component Value Ref Test Method Analysis Performed A t Range Time Magnesium 2.2 1.6 - 10/24/2022 [facility] DEPT PAT H AND 2.6 10:20 PM LAB MEDICINE mg/dL TELECOMMUNICATIONS MANAGER Anatomical Location / Laterality Collection Method / Volume Eva ection Time Received Time Specimen (Source) BLOOD / Unknown 10/24/2022 9:38 PM TELECOMMUNICATIONS MANAGER 10/24/20 9:47 PM TELECOMMUNICATIONS MANAGER Rigoberto Gomez LABORATORY ORDERABLES Taras MTZ [facility]/ZIP Code Phone Number Performing Address Organization [place], [place] [phone] [place] [address] AND [address] [facility] * CT HEAD EXTERNAL IMAGING (10/24/2022 12:00 AM TELECOMMUNICATIONS MANAGER) Anatomical Location / Laterality Collection Method / Volume Eva ection Time Received Time Specimen (Source) Narrative Scheduling, Silent - 10/28/2022 8:29 AM TELECOMMUNICATIONS MANAGER This order has been auto finalized and does not contain a result. Radiologist RADIOLOGY EXTERNAL ORDERABL ES Outpatient * TELEMETRY STRIPS-SCAN (10/24/2022 12:00 AM TELECOMMUNICATIONS MANAGER) Narrative 10/24/2022 12:00 AM TELECOMMUNICATIONS MANAGER Ordered by an unspecified provider. Scanned Document PROCEDURE DUMMY ORDERS * TELEMETRY STRIPS-SCAN (10/24/2022 12:00 AM TELECOMMUNICATIONS MANAGER) Narrative 10/24/2022 12:00 AM TELECOMMUNICATIONS MANAGER Ordered by an unspecified provider. Scanned Document PROCEDURE DUMMY ORDERS * TELEMETRY STRIPS-SCAN (10/24/2022 12:00 AM TELECOMMUNICATIONS MANAGER) Narrative 10/24/2022 12:00 AM TELECOMMUNICATIONS MANAGER Ordered by an unspecified provider. Scanned Document PROCEDURE DUMMY ORDERS * TELEMETRY STRIPS-SCAN (10/24/2022 12:00 AM TELECOMMUNICATIONS MANAGER) Narrative 10/24/2022 12:00 AM TELECOMMUNICATIONS MANAGER Ordered by an unspecified provider. Scanned Document PROCEDURE DUMMY ORDERS * TELEMETRY STRIPS-SCAN (10/24/2022 12:00 AM TELECOMMUNICATIONS MANAGER) Narrative 10/24/2022 12:00 AM TELECOMMUNICATIONS MANAGER Ordered by an unspecified provider. Scanned Document PROCEDURE DUMMY ORDERS * TELEMETRY STRIPS-SCAN (10/24/2022 12:00 AM TELECOMMUNICATIONS MANAGER) Narrative 10/24/2022 12:00 AM TELECOMMUNICATIONS MANAGER Ordered by an unspecified provider. Scanned Document PROCEDURE DUMMY ORDERS * TELEMETRY STRIPS-SCAN (10/24/2022 12:00 AM TELECOMMUNICATIONS MANAGER) Narrative 10/24/2022 12:00 AM TELECOMMUNICATIONS MANAGER Ordered by an unspecified provider. Scanned Document PROCEDURE DUMMY ORDERS * TELEMETRY STRIPS-SCAN (10/24/2022 12:00 AM TELECOMMUNICATIONS MANAGER) Narrative 10/24/2022 12:00 AM TELECOMMUNICATIONS MANAGER Ordered by an unspecified provider. Scanned Document PROCEDURE DUMMY ORDERS * TELEMETRY STRIPS-SCAN (10/24/2022 12:00 AM TELECOMMUNICATIONS MANAGER) Narrative 10/24/2022 12:00 AM TELECOMMUNICATIONS MANAGER Ordered by an unspecified provider. Scanned Document PROCEDURE DUMMY ORDERS * TELEMETRY STRIPS-SCAN (10/24/2022 12:00 AM TELECOMMUNICATIONS MANAGER) Narrative 10/24/2022 12:00 AM TELECOMMUNICATIONS MANAGER Ordered by an unspecified provider. Scanned Document PROCEDURE DUMMY ORDERS * TELEMETRY STRIPS-SCAN (10/24/2022 12:00 AM TELECOMMUNICATIONS MANAGER) Narrative 10/24/2022 12:00 AM TELECOMMUNICATIONS MANAGER Ordered by an unspecified provider. Scanned Document PROCEDURE DUMMY ORDERS * ECG 12-LEAD (10/12/2022 6:47 PM TELECOMMUNICATIONS MANAGER) Pathologist Signature Component Value Ref Test Method Analysis Performed A t Range Time VENTRICULAR RATE 62 BPM [facility] P-R INTERVAL 204 ms GE [facility] QRS DURATION 104 ms [facility] Q-T INTERVAL 442 ms [facility] QTC CALCULATION 448 ms [facility] (BAZETT) P AXIS 75 degrees GE [facility] R AXIS 7 degrees GE [facility] T AXIS 50 degrees GE [facility]USE Anatomical Location / Laterality Collection Method / Volume Eva ection Time Received Time Specimen (Source) 10/12/2022 6:47 PM TELECOMMUNICATIONS MANAGER 10/12/20 11:18 PM TELECOMMUNICATIONS MANAGER Impressions [facility] - 10/12/2022 11:18 PM TELECOMMUNICATIONS MANAGER Normal sinus rhythm No acute ST or T wave changes No previous ECGs available in MUSE Confirmed by Ezio Webb ([id number]) on 10/12/2022 11:18:33 PM Narrative Procedure Note Ezio Webb MD - 10/12/2022 IMPRESSION Normal sinus rhythm No acute ST or T wave changes No previous ECGs available in MUSE Confirmed by Ezio Webb ([id number]) on 10/12/2022 11:18:33 PM Bo Mckeon MD ECG ORDERABLES City/State/ZIP Code Phone Number Performing Address Organization [facility] from Last 3 Months Insurance Type Payer Benefit Subscriber ID Effective Phone Address Plan / Dates Group Medicare AETNA MEDICARE AETNA [id number] 2021- [phone] [address] MED[address] Present [id number] [place] [address] Advance Directives Date Inactivated Comments Code Status Date Activated 11/05/2022 2:42 PM Full Code 10/25/2022 12:55 AM Provider has discussed Code Status Yes w/Patient or Family? Care Teams Start Date End Date Ingot Weigher Relationship Specialty 09/10/22 Jorge Luis Cuba MD PCP - General [place] [address] [place] [id number]
--- OUTSIDE RECORDS SUMMARY | 2022-11-05 14:58 | XMS REPORT | Encounter Summary ---
Author Author [facility] Organization [facility] Address Unknown Phone Unavailable Care Team Providers Care Production Staff Worker Name Role Phone Jorge Luis Cuba MD PCP Reason for Visit * Auth/Cert (Routine) Diagnoses / Procedures Referred By Contact Referred To Conta ct Specialty Diagnoses SDH (subdural hematoma) Referral ID Status Reason Start Date Expiration Visits Vi sits Date Requested Authorized [id number] 1 1 Encounter Details Care Team Description Date Type Department Jose Manuel Montague MD [address] [place] [address] 11/04/2022 Hospital Vascular Access Tea m: Encounter Main [place], [facility] [address] [facility] [address], [address] [place] [address] Social History Date Tobacco Use Types Packs/Day Years Used Smoking Tobacco: Every Cigarettes 0.5 Day Smokeless Tobacco: Never Comments Alcohol Use Standard Drinks/Week Not Currently 0 (1 standard drink = 0.6 o z pure alcohol) Sex Assigned at Date Recorded Not on file Date Recorded COVID-19 Exposure Response 10/24/2022 5:04 PM OFFICE MANAGER In the last 10 days, have you been in contact with N o / Unsure someone who was confirmed or suspected to have Coronavirus/COVID-19? documented as of this encounter Functional Status Date of Assessment [...] impairment: No documented as of this encounter Plan of Treatment Not on filedocumented as of this encounter Goals Goal Patient Associated Recent Progress Patient-Stat Aut hor Goal Type Problems ed? Recover from illness Hospital On track (10/25/2022 Yes Pina Flores, 4:08 PM OFFICE MANAGER) RN Note: "To get better and go home" documented as of this encounter Procedures Comments Procedure Name Priority Date/Time Associated Diag nosis CONSULT VASCULAR ACCESS Routine 11/04/2022 TEAM 1:05 AM OFFICE MANAGER documented in this encounter Visit Diagnoses Not on filedocumented in this encounter Orders First Ordered Date Procedures Count Last Ordered Date CONSULT VASCULAR ACCESS TEAM 1 2 documented in this encounter Additional Health Concerns Noted Time Assessment 11/04/2022 9:09 PM OFFICE MANAGER A fall risk assessment has been complet ed for the patient 09/27/2022 8:15 AM OFFICE MANAGER PHQ-2 Depression Total Score: 0 documented as of this encounter Care Teams Start Date End Date Production Staff Worker Relationship Specialty 09/10/22 Jorge Luis Cuba MD PCP - General Family [facility] [address] [place] [id number] documented as of this encounter
--- OUTSIDE RECORDS SUMMARY | 2022-11-05 14:58 | XMS REPORT | Encounter Summary ---
Author Author [facility] Organization [facility] Address Unknown Phone Unavailable Care Team Providers Care Athletic Equipment Manager Name Role Phone Jorge Luis Cuba MD PCP Encounter Details Care Team Description Date Type Department Elsie Pisano RN 10/29/2022 Telephone Cardiology: [facility] [address] [facility] [address] [place] [address] Social History Date Tobacco Use Types Packs/Day Years Used Smoking Tobacco: Every Cigarettes 0.5 Day Smokeless Tobacco: Never Comments Alcohol Use Standard Drinks/Week Not Currently 0 (1 standard drink = 0.6 o z pure alcohol) Sex Assigned at Date Recorded Not on file Date Recorded COVID-19 Exposure Response 10/24/2022 5:04 PM ROLL EDGE MACHINE OPERATOR In the last 10 days, have [...] impairment: No documented as of this encounter Miscellaneous Notes * Patient Instructions - Elsie Pisano RN - 10/29/2022 4:13 PM CST EDGE MACHINE OPERATOR documented in this encounter Plan of Treatment Not on filedocumented as of this encounter Goals Goal Patient Associated Recent Progress Patient-Stat Aut hor Goal Type Problems ed? Recover from illness Hospital On track (10/25/2022 Yes Pina Flores, 4:08 PM ROLL EDGE MACHINE OPERATOR) RN Note: "To get better and go home" documented as of this encounter Visit Diagnoses Not on filedocumented in this encounter Additional Health Concerns Noted Time Assessment 10/29/2022 7:15 AM ROLL EDGE MACHINE OPERATOR A fall risk assessment has been complet ed for the patient 09/27/2022 8:15 AM ROLL EDGE MACHINE OPERATOR PHQ-2 Depression Total Score: 0 documented as of this encounter Care Teams Start Date End Date Athletic Equipment Manager Relationship Specialty 09/10/22 Jorge Luis Cuba MD PCP - General [place] [address] [place] [address] documented as of this encounter
--- OUTSIDE RECORDS SUMMARY | 2022-11-05 14:58 | XMS REPORT | Encounter Summary ---
Author Author [facility] Organization [facility] Address Unknown Phone Unavailable Care Team Providers Care Environmental Health Specialist Name Role Phone Jorge Luis Cuba MD PCP Reason for Visit * Auth/Cert (Routine) Diagnoses / Procedures Referred By Contact Referred To Conta ct Specialty Diagnoses SDH (subdural hematoma) Referral ID Status Reason Start Date Expiration Visits Vi sits Date Requested Authorized [id number] 1 1 Encounter Details Care Team Description Date Type Department Jose Manuel Montague MD [address] [place] [address] 11/02/2022 Hospital Vascular Access Tea m: Encounter Main [place], [facility] [address] [facility] [address], [address] [place] [address] Social History Date Tobacco Use Types Packs/Day Years Used Smoking Tobacco: Every Cigarettes 0.5 Day Smokeless Tobacco: Never Comments Alcohol Use Standard Drinks/Week Not Currently 0 (1 standard drink = 0.6 o z pure alcohol) Sex Assigned at Date Recorded Not on file Date Recorded COVID-19 Exposure Response 10/24/2022 5:04 PM PATTERN CHANGER In the last 10 days, have you [...] track (10/25/2022 Yes Pina Flores, 4:08 PM PATTERN CHANGER) RN Note: "To get better and go home" documented as of this encounter Procedures Comments Procedure Name Priority Date/Time Associated Diag nosis CONSULT VASCULAR ACCESS Routine 11/02/2022 TEAM 5:48 PM PATTERN CHANGER documented in this encounter Visit Diagnoses Not on filedocumented in this encounter Orders First Ordered Date Procedures Count Last Ordered Date CONSULT VASCULAR ACCESS TEAM 1 2 documented in this encounter Additional Health Concerns Noted Time Assessment 11/02/2022 8:00 PM PATTERN CHANGER A fall risk assessment has been complet ed for the patient 09/27/2022 8:15 AM PATTERN CHANGER PHQ-2 Depression Total Score: 0 documented as of this encounter Care Teams Start Date End Date Environmental Health Specialist Relationship Specialty 09/10/22 Jorge Luis Cuba MD PCP - General Family [facility] [address] [place] [id number] documented as of this encounter
--- OUTSIDE RECORDS SUMMARY | 2022-11-05 14:58 | XMS REPORT | Encounter Summary ---
Author Author [facility] Organization [facility] Address Unknown Phone Unavailable Care Team Providers Care Consulting Property Manager Name Role Phone Jorge Luis Cuba MD PCP Reason for Visit * Auth/Cert (Routine) Diagnoses / Procedures Referred By Contact Referred To Conta ct Specialty Diagnoses SDH (subdural hematoma) Referral ID Status Reason Start Date Expiration Visits Vi sits Date Requested Authorized [id number] 1 1 Encounter Details Care Team Description Date Type Department Lorrie Austin MD [address] [place], [place] [id number] Hunter Armendariz MD [address] [place] [address] 10/31/2022 Anesthesia Operating Room: [facility] [address] [facility] Level [address] [place] [id number] Anesthesia Record Responsible Anesthesiologist Anesthesia Start Time Anesthesi a Stop Time Procedure Name Lorrie Austin MD 10/31/22 1528 10/31/22 1635 ROBOT ASSISTED BRONCHOSCOPY WITH IMAGE-GUIDED NAVIGATION- FLEXIBLE (Bronchus) Date Time Event Comment 1527 Anes Start 2021 1529 In Room 1531 An Start Data 1536 An Induction The patient was ree valuated immediately before moderate or deep sedation use and before anesthesia induction. 1539 An Intubation 1541 Anesthesia Ready 1546 Proc Start 1630 An Extubation 1632 an stop data 1635 An Stop I completed my SBAR handoff to the receiving nurse. Meds Name Total fentaNYL PF (SUBLIMAZE) injection 100 mcg lidocaine PF 2% 100mg/5mL vial 80 mg propofol (DIPRIVAN) 200 mg/ 20 mL 100 mg injection (VIAL) rocuronium (ZEMURON) injection 50 mg ondansetron (ZOFRAN) injection 4 mg artificial tears (GENTEAL TEARS; BION 2 drop TEARS) single dose solution propofoL (DIPRIVAN) infusion 259.16 mg phenylephrine (SYLVIA-SYNEPHRINE) 1mg/10 mL 1,000 mcg (100 mcg/mL) inj syringe sugammadex (BRIDION) 250 mg lactated ringers infusion 200 mL * Name O2 N2O Inspired N2O * No blood administrations on file. Removal Type Details Placement 11/02/22 1703 by Chris Roberson RN Peripheral 10/24/22; 2013; RN; R; Antecubital; 20 10/24/222013 by TESS Cheng G; No; 1; 11/02/22; 1703 ARMANDO Jha 11/02/22 1703 by Chris Roberson RN Peripheral 10/28/22; 0817; Provider; L; Hand; 18 G ; 10/28/22 0817 by TESS Harkins No; 1; 11/02/22; 1703 Elizabeth Segundo, WEBBING TACKER 11/05/22 1237 by Rashawn, Utility Locate Technician Puncture 10/28/22; 0843; Right; (ulnar); 10/28 0843 by Douglass, Wound 11/05/22; 1237 ARMANDO Luna (Sheath) 10/31/22 1630 by Hunter Armendariz MD ETT 10/31/22; 1539; Ventilated by mask (1); 10/31/22 1539 by Marcello, Direct laryngoscopy, Stylet; MD Hunter Single-Lumen, Cuffed; ETT Size: 8mm; Mac; Blade Size: 3; Oral; 1-Full view o f the glottis; 1 insertion attempt; Auscultation, ETCO2 Detector; Taped at Gums: 22 centimeters; Atraumatic. Dentition and mucosa unchanged.; 10/31/22; 1630 documented in this encounter Social History Date Tobacco Use Types Packs/Day Years Used Smoking Tobacco: Every Cigarettes 0.5 Day Smokeless Tobacco: Never Comments Alcohol Use Standard Drinks/Week Not Currently 0 (1 standard drink = 0.6 o z pure alcohol) Sex Assigned at Date Recorded Not on file Date Recorded COVID-19 Exposure Response 10/24/2022 5:04 PM ENGRAVER [employer]WARE In the last 10 days, have you [...] impairment: No documented as of this encounter OR Notes * Anesthesia Postprocedure Evaluation - Mishel Neff MD - 10/31/2022 5:32 PM [employer]RA[employer] Post-Anesthesia Evaluation Name: Scot Bell : 1940 Age: 82 y.o. Sex : male Procedure Information Anesthesia Start Date/Time: 10/31/221527 Procedure: ROBOT ASSISTED BRONCHOSCOPY WITH IMAGE-GUIDED NAVIGATION- FLEXIBLE ( Bronchus) - 2 HRS Location: PULM ROOM / Main OR/Periop Surgeons: Delano Sawant MD Post-Anesthesia Vitals BP: 118/102 (10/31 1715) Temp: 36.4 C (97.6 F) (10/31 1635) Pulse: 58 (10/31 1715) Respirations: 12 PER MINUTE (10/31 1715) SpO2: 95 % (10/31 1715) SpO2 Pulse: 60 (10/31 1715) O2 Device: Nasal cannula (10/31 1715) Vitals Value Taken Time BP 118/102 10/31/221714 Temp 36.4 C (97.6 F) 10/31/22 1635 Pulse 58 10/31/22 1715 Respirations 12 PER MINUTE 10/31/22 171 SpO2 95 % 10/31/22 171 O2 Device Nasal cannula 10/31/22 171 ABP ART BP Post Anesthesia Evaluation Note Evaluation location: Pre/Post Patient participation: recovered; patient participated in evaluation (At [facility]) Level of consciousness: alert Pain score: 0 Pain management: adequate Hydration: normovolemia Temperature: 36.0C - 38.4C Airway patency: adequate Perioperative Events Post-op nausea and vomiting: no PONV Postoperative Status Cardiovascular status: hemodynamically stable Respiratory status: spontaneous ventilation and supplemental oxygen (2L) Perioperative Events Encounter Notable Events Notable Event Outcome Phase Comment Hypotension Intraprocedure AVER FLATWARE Associated attestation - Ramone Swenson MD - 10/31/2022 6:01 PM ENGRAVER [employer]WARE ATTESTATION Post-Anesthesia Evaluation Attestation: I reviewed and agree the indicated post- anesthesia care was provided. I have reviewed torres portions of the indicated post anesthesia care. I have examined the patient's vitals, physical status, and com plications and agree with what is documented. Staff name: Ramone Swenson MD Date: 10/31/2022 * Anesthesia Preprocedure Evaluation - Hunter Armendariz MD - 10/30/2022 7:08 PM CST Anesthesia Pre-Procedure Evaluation Name: Scot Bell : 1940 Age: 82 y.o. Sex : male Procedure Info: Procedure Information Date/Time: 10/31/22 1345 Procedure: ROBOT ASSISTED BRONCHOSCOPY WITH IMAGE-GUIDED NAVIGATION- FLEXIBLE ( Bronchus) - 2 HRS Location: PULM ROOM / Main OR/Periop Surgeons: Delano Sawant MD HPI Scot Stroud a 82 y.o.malewith PMH of HLD, HTN, PAD status post stenting , CAD status post PCI, chronic low back pain, essential tremor who was admitted with acute on chronic right subdural hemorrhage with subacute CVA noted on imagi ng with additional tiny infarcts in BL cerebral and cerebellar regions (likely e mbolic) Physical Assessment Vital Signs (last filed in past 24 hours): BP: 154/82 (10/31 1500) Temp: 36.4 C (97.5 F) (10/31 1457) Pulse: 59 (10/31 1457) Respirations: 18 PER MINUTE (10/31 145) SpO2: 95 % (10/31 145) O2 Device: None (Room air) (10/31 1457) Patient History No Known Allergies Current Medications Medication Directions acetaminophen SR (TYLENOL) 650 mg tablet Take 650 mg by mouth every 8 hours as n eeded for Pain. atorvastatin (LIPITOR) 80 mg tablet Take 80 mg by mouth daily. metoprolol tartrate (LOPRESSOR) 50 mg tablet Take 50 mg by mouth twice daily. vitamins, B complex tab Take 1 tablet by mouth daily. vitamins, multiple cap Take 1 capsule by mouth daily. Review of Systems/Medical History Unable to obtain/perform ROS/medical history: mental acuity Patient summary reviewed Nursing notes reviewed Pertinent labs reviewed PONV Screening: Postoperative opioids No history of anesthetic complications No family history of anesthetic complications Airway - negative Pulmonary Current smoker ( 1/2 ppd x60 years); patient did not smoke on day of surgery tobacco use No indications/hx of asthma no COPD No Obstructive Sleep Apnea recent dx of lung mass - scheduled for bronch and PET scan Cardiovascular Beta Candis therapy: Yes Beta blockers within 24 hours: Yes Hypertension, well controlled Valvular problems/murmurs ( s/p TAVR) Coronary artery disease PTCA ( 2018) PVD (s/p RLE stenting) Hyperlipidemia 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 GI/Hepatic/Renal No liver disease: No renal disease: Neuro/Psych CVA ( left sided weakness), residual symptoms Neuropathy ( bilat feet) Essential tremor Acute on chronic R subdural hemorrhage Subacute R [employer]/RODOLFO stroke additional tiny infarcts in BL cerebral and cerebellar regions Musculoskeletal Back pain Arthritis: Endocrine/Other No diabetes No hypothyroidism Anemia Constitution - negative Physical Exam Airway Findings Mallampati: II TM distance: >3 FB Neck ROM: full Mouth opening: good Airway patency: adequate Dental Findings: Lower dentures and upper dentures Cardiovascular Findings: Negative Rhythm: regular Rate: normal Abdominal Findings: Abdominal exam deferred Neurological Findings: Altered mental status Constitutional findings: Negative No acute distress Diagnostic Tests Hematology: Lab Results Component Value Date HGB 12.8 10/31/2022 HCT 37.7 10/31/2022 PLTCT 157 10/31/2022 WBC 7.5 10/31/2022 NEUT 78 10/31/2022 ANC 5.91 10/31/2022 ALC 0.55 10/31/2022 MANGUS 13 10/31/2022 AMC 1.01 10/31/2022 EOSA 1 10/31/2022 ABC 0.04 10/31/2022 MCV 99.8 10/31/2022 MCH 33.8 10/31/2022 MCHC 33.9 10/31/2022 MPV 9.1 10/31/2022 RDW 14.5 10/31/2022 General Chemistry: Lab Results Component Value Date NA 139 10/31/2022 K 3.7 10/31/2022 CL 103 10/31/2022 CO2 22 10/31/2022 GAP 14 10/31/2022 BUN 21 10/31/2022 CR 0.84 10/31/2022 GLU 85 10/31/2022 CA 8.8 10/31/2022 ALBUMIN 3.7 10/31/2022 MG 2.2 10/24/2022 TOTBILI 0.7 10/31/2022 Coagulation: Lab Results Component Value Date PT 13.5 10/24/2022 INR 1.2 10/24/2022 ANSELMO 10/29/22: 1. There was no thrombus visualized in the left atrial appendage utilizing multi ple views and color flow Doppler 2. No interatrial shunting by color-flow or agitated saline contrast. There was rare, late (>5 beats) agitated saline contrast seen in the left atrium which is most suggestive of a pulmonary source of shunting. 3. Qualitatively normal LV size and systolic function, EF ~ 60-65 % 4. Qualitatively normal RV size and systolic function 5. Mildly dilated left atrium, normal size right atrium. 6. 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 No evidence of valvular stenosis with thin leaflets with normal leaflet excursion (peak elma ocity = 2.6 m/s, mean gradient = 13 mmHg, AT =95 ms). There is mild to moderate paravalvular regurgitation at the 12 to 1 o'clock position. No transvalvular r egurgitation. 7. There is moderate mitral annular calcification with mild mitral stenosis (otilia n gradient of 4 mmHg at 63 bpm, MVA = 1.59 cm). There is mild-moderate mitral regurgitation 8. Mild to moderate tricuspid regurgitation. 9. Moderate layered atheromatous plaque present in the descending aorta 10. No pericardial effusion. Compared with the prior surface echo on 10-25-2022, there has been no significan t interval changes when accounting for the differences in imaging technique and Doppler angles. The mitral and aortic valves are better interrogated on today's exam. Anesthesia Plan ASA score: 3 Plan: general Induction method: intravenous NPO status: acceptable Informed Consent Anesthetic plan and risks discussed with patient (daughter). Use of blood products discussed with patient (daughter) Blood Consent: consented Plan discussed with: anesthesiologist and resident. [employer]ER FLATWARE documented in this encounter Plan of Treatment Not on filedocumented as of this encounter Goals Goal Patient Associated Recent Progress Patient-Stat Aut hor Goal Type Problems ed? Recover from illness Hospital On track (10/25/2022 Yes Pina Flores, 4:08 PM ENGRAVER FLATWARE) RN Note: "To get better and go home" documented as of this encounter Visit Diagnoses Not on filedocumented in this encounter Administered Medications Action Date Dose Rate Site Medication Order MAR Action 10/31/2022 3:40 PM ENGRAVER FLATWARE 2 drops artificial tears (PF) single dose Given ophthalmic solution Both Eyes, INTRA-PROCEDURE MED, Startin g on Martine 10/31/22 at 1540, Until Martine 10/31/22 at 1647, Anesthesia Intra-op 10/31/2022 3:36 PM ENGRAVER FLATWARE 100 mcg fentaNYL citrate PF (SUBLIMAZE) Given injection Intravenous, INTRA-PROCEDURE MED, Starting on Martine 10/31/22 at 1536, Until Martine 10/31/22 at 1647, Anesthesia Intra-op 10/31/2022 4:32 PM ENGRAVER FLATWARE lactated ringers infusion Infusion 1,000 mL, 1,000 mL, Intravenous, at 20 Restarted mL/hr, CONTINUOUS, Starting on Martine 10/31/22 at 1330, Until 11/02/22 at 1329, Pre-Op 1,000 mL 20 mL/hr Given - New Bag 10/31/2022 3:00 PM ENGRAVER FLATWARE 10/31/2022 3:36 PM ENGRAVER [employer]WARE 80 mg lidocaine PF 20 mg/mL (2 %) injection Given Intravenous, INTRA-PROCEDURE MED, Starting on Martine 10/31/22 at 1536, Until Martine 10/31/22 at 1647, Anesthesia Intra-op 10/31/2022 4:14 PM ENGRAVER FLATWARE 4 mg ondansetron (ZOFRAN) injection Given Intravenous, INTRA-PROCEDURE MED, Starting on Martine 10/31/22 at 1614, Until Martine 10/31/22 at 1647, Anesthesia Intra-op 10/31/2022 4:14 PM ENGRAVER FLATWARE 300 mcg phenylephrine (SYLVIA-SYNEPHRINE) injection Given syringe Intravenous, INTRA-PROCEDURE MED, Starting on Martine 10/31/22 at 1544, Until Martine 10/31/22 at 1647, Anesthesia Intra-op 200 mcg Given 10/31/2022 4:09 PM ENGRAVER FLATWARE 200 mcg Given 10/31/2022 4:01 PM ENGRAVER FLATWARE 200 mcg Given 10/31/2022 3:52 PM ENGRAVER FLATWARE 100 mcg Given 10/31/2022 3:44 PM ENGRAVER FLATWARE 10/31/2022 4:10 PM ENGRAVER FLATWARE 80 mcg/kg/min 28.08 mL/hr propofoL (DIPRIVAN) infusion Dose/Rate 100 mL, Intravenous, INTRA-PROCEDURE Change MED(CONT), Starting on Martine 10/31/22 at 1536, Until Martine 10/31/22 at 1647, Anesthesia Intra-op 110 mcg/kg/min 38.61 mL/hr Dose/Rate Change 10/31/2022 4:06 PM ENGRAVER FLATWARE 125 mcg/kg/min 43.875 mL/hr Given - New Bag 10/31/2022 3:36 PM ENGRAVER FLATWARE 10/31/2022 3:36 PM ENGRAVER FLATWARE 100 mg propofol (DIPRIVAN) injection Given Intravenous, INTRA-PROCEDURE MED, Starting on Martine 10/31/22 at 1536, Until Martine 10/31/22 at 1647, Anesthesia Intra-op 10/31/2022 3:36 PM ENGRAVER FLATWARE 50 mg rocuronium injection Given Intravenous, INTRA-PROCEDURE MED, Starting on Martine 10/31/22 at 1536, Until Martine 10/31/22 at 1647, Anesthesia Intra-op 10/31/2022 4:14 PM ENGRAVER FLATWARE 250 mg sugammadex (BRIDION) injection Given Intravenous, INTRA-PROCEDURE MED, Starting on Martine 10/31/22 at 1614, Until Martine 10/31/22 at 1647, Anesthesia Intra-op documented in this encounter Additional Health Concerns Noted Time Assessment 10/31/2022 9:02 PM ENGRAVER FLATWARE A fall risk assessment has been complet ed for the patient 09/27/2022 8:15 AM ENGRAVER FLATWARE PHQ-2 Depression Total Score: 0 documented as of this encounter Care Teams Start Date End Date Consulting Property Manager Relationship Specialty 09/10/22 Jorge Luis Cuba MD PCP - [address] [id number] documented as of this encounter
--- OUTSIDE RECORDS SUMMARY | 2022-11-05 14:58 | XMS REPORT | Encounter Summary ---
Author Author [facility] Organization [facility] Address Unknown Phone Unavailable Care Team Providers Care Speedboat Operator Name Role Phone Jorge Luis Cuba MD PCP Reason for Visit * Reason Comments Extremity Weakness All extremity weakness - tr emors - gargled speech - all symptoms x2 weeks - seen at [facility] tod ay and told he has a subdural hematoma and possible stroke and told t o come to this ER * Auth/Cert (Routine) Diagnoses / Procedures Referred By Contact Referred To Conta ct Specialty Diagnoses SDH (subdural hematoma) Referral ID Status Reason Start Date Expiration Visits Vi sits Date Requested Authorized [id number] 1 1 Encounter Details Care Team Description Date Type Department Delano Sawant MD [address] [place] [address] ROBOT ASSISTED BRONCHOSCOPY WITH IMAGE-G UIDED NAVIGATION- FLEXIBLE 10/31/2022 Surgery Operating Room: [facility] [address] [facility] [address] [place] [address] Surgery Details Patient Class Case Class Case Type Trauma Case? Date/Time Status Location OR Service Inpatient Elective - Treating conditio ns that are not life or limb threatening 10/31/22 Posted [facility] OR PULM ROOM Pulmonary 1:45 PM Medicine Comments Panel 1 Procedure LRB Anes Op Region Wound Cl ass 2 HRS ROBOT ASSISTED N/A Defer to Bronchus NA BRONCHOSCOPY WITH Anesthesia IMAGE-GUIDED NAVIGATION- FLEXIBLE Surgeon Role Service Panel Surgeon Primary Pulmonary Medicine 1 Delano Sawant MD Fellow Pulmonary Medicine 1 Carlos Hernandez MD documented in this encounter Social History Date Tobacco Use Types Packs/Day Years Used Smoking Tobacco: Every Cigarettes 0.5 Day Smokeless Tobacco: Never Comments Alcohol Use Standard Drinks/Week Not Currently 0 (1 standard drink = 0.6 o z pure alcohol) Sex Assigned at Date Recorded Not on file Date Recorded COVID-19 Exposure Response 10/24/2022 5:04 PM SPLITTER OPERATOR In the last 10 days, have you been in contact with N o / Unsure someone who was confirmed or suspected to have Coronavirus/COVID-19? documented as of this encounter Last Filed Vital Signs Reading Time Taken Comments Vital Sign 154/82 10/31/2022 3:00 PM SPLITTER OPERATOR Blood Pressure 59 10/31/2022 2:57 PM SPLITTER OPERATOR Pulse 36.4 C (97.5 F) 10/31/2022 2:57 PM SPLITTER OPERATOR Temperature - - Respiratory Rate 95% 10/31/2022 2:57 PM SPLITTER OPERATOR Oxygen Saturation - - Inhaled Oxygen Concentration 58.5 kg (129 lb) 10/25/2022 9:02 AM SPLITTER OPERATOR Weight 170.2 cm (5' 7") 10/25/2022 9:02 AM SPLITTER OPERATOR Height 20.2 10/25/2022 9:02 AM SPLITTER OPERATOR Body Mass Index documented in this [...] Amna Dent - 11/05/2022 11:32 AM CST REPAIRER KILN CAR Note: Printed and placed transfer packet in the pt's wall unit per request from JAKE Alexanedr. Amna Dent Manager Operating For additional assistance please contact JAKE * TTER OPERATOR * Usha Arechiga LMSW - 11/05/2022 10:53 AM CST Case Management Progress Note NAME:Scot Bell :[birth year] AGE: 82 y.o. ADMISSION DATE: 10/24/2022 DAYS ADMITTED: LOS: 11 days Today's Date: 11/05/2022 PLAN: D/c to [facility] today by 12:30. Daughter to transport by POV. RN report #: Expected Discharge Date: 11/06/2022 4:00 PM Is Patient Medically Stable: Yes Are there Barriers to Discharge? no INTERVENTION/DISPOSITION: Discharge Planning [facility] [place] has insurance auth and can accept today SW updated MPU attending, who states that pt can d/c today Spoke with daughter who is at bedside and she states that she can transport h im today. IPR neds pt at facility before 3pm. Pt needs to leave by 12:30pm to make it o n time. SW updated [facility] admissions on plan. Tasked REPAIRER KILN CAR to deliver transfer packet Transportation Will the Patient Use Family Transport?: Yes Transportation Name, Phone and Availability #1: pt's dtr Tamika [phone] Support Info or Referral Medication Needs Financial Legal Other Discharge Disposition Selected Continued Care - Admitted Since 10/24/2022 [facility] Destination Coordination complete. Service Provider Selected Services Address Phone Fax Patient Preferred [facility] Inpatient Rehabilitation [address] [facility] [address] -- Usha Arechiga LMSW Available on [employer] Work TTER OPERATOR * Usha Arechiga LMSW - 10/31/2022 11:07 AM CST Case Management Progress Note NAME:Scot Bell :[birth year] AGE: 82 y.o. ADMISSION DATE: 10/24/2022 DAYS ADMITTED: LOS: 6 days Today's Date: 10/31/2022 PLAN: D/c to [facility] in [place] pending insurance auth and medical s tability Expected Discharge Date: 11/01/2022 12:00 PM Is Patient Medically Stable: No, Please explain: needs bronch Are there Barriers to Discharge? no INTERVENTION/DISPOSITION: Discharge Planning SW received return call from February in admissions at [facility] and they are able to accept pt for rehab. SW requests that they send to insurance for prior auth Pt still needing bronch SW called daughter and updated on approval. She remains in agreement with leonela culver Transportation Will the Patient Use Family Transport?: Yes Transportation Name, Phone and Availability #1: pt's dtr Tamika [phone] Support Info or Referral Medication Needs Financial Legal Other Discharge Disposition Selected Continued Care - Admitted Since 10/24/2022 [facility] Destination Coordination complete. Service Provider Selected Services Address Phone Fax Patient Preferred [facility] Inpatient Rehabilitation [address] [facility] [address] [phone] -- Usha Arechiga LMSW Available on [employer] Work TTER OPERATOR * Usha Arechiga LMSW - 10/30/2022 2:37 PM CST Case Management Progress Note NAME:Scot Bell :[birth year] AGE: 82 y.o. ADMISSION DATE: 10/24/2022 DAYS ADMITTED: LOS: 5 days Today's Date: 10/30/2022 PLAN: D/c to IPR pending facility acceptance and insurance auth Expected [...] referral be sent to IPR closest to [place]. SW faxed referral to [facility] Transportation Will the Patient Use Family Transport?: Yes Transportation Name, Phone and Availability #1: pt's dtr Tamika [phone] Support Info or Referral Medication Needs Financial Legal Other Discharge Disposition Selected Continued Care - Admitted Since 10/24/2022 No services have been selected for the patient. Usha Arechiga LMSW Available on [employer] Work TTER OPERATOR * Deb Silva - 10/26/2022 10:29 AM CST REPAIRER KILN CAR Note Emailed in network SNF list from pt's zip code & [place] Per JAKE Cisneros. Ibis Silva Manager Operating For additional assistance please contact Case Management TTER OPERATOR * Chloe Pepe LMSW - 10/26/2022 9:35 AM CST .ship's officer Case Management Progress Note NAME:Scot Bell :[birth year] AGE: 82 y.o. ADMISSION DATE: 10/24/2022 DAYS ADMITTED: LOS: 1 day Today's Date: 10/26/2022 PLAN: Anticipate dc to SNF pending medical stability, facility acceptance and in surance auth. Expected Discharge Date: 10/29/2022 12:00 PM Is Patient Medically Stable: No, Please explain: ongoing medical care Are there Barriers to Discharge? no INTERVENTION/DISPOSITION: Discharge Planning SW asked provider to put in a rehab consult to determine appropriate level of care. SW tasked REPAIRER KILN CAR for in network list of SNF list. JOEY talked to tung Hsieh's dtr about support plan. Pt lives with his 2 sons. One works about 65 hours per week and is not home very often. the other brother has some mental health issues and can't really be depended on to assist much. She lives about 40 minutes away and works two jobs and is automatic centrifugal station operator sometimes so her i nteractions are limited as well. Sounds like pt may need SNF as he may need a lo nger time at a facility before going back home. Will bring dtr a list of facil ities to choose from to start planning. JOEY sent a referral to [facility] upon [...] in all ADLs and mobility without devices. Afshan barba has needed more help since beginning of [...] SNF, IPR, DME, outpatient therapy experience inc ludes: ? SNF-7 years ago, [facility] [place] ? DME RW, w/c, shower chair ? Transport plan will be pt's dtheidi Hsieh ? Pt [facility] in [place]. Patient Address/Phone [address] [address] (home) Emergency Contact Extended Emergency Contact Information Primary Emergency Contact: TAMIKA SAMPSON Mobile Relation: Daughter Preferred language: SYRIAN Project Intern needed? No Healthcare Directive Healthcare Directive: No, [...] Phone and Availability #1: pt's dtr Tamika [phone] Expected Discharge Date 10/29/2022 12:00 PM Living [...] Source of Income Source Of Income: Other prison income Financial Assistance Needed? NA- did discuss Medicaid referral but pt owns his home and would be over assets. Psychosocial Needs Mental Health Mental Health History: No Substance Use History Substance Use History Screen: No Other NA Current/Previous Services PCP Jorge Luis Cuba, , Pharmacy [facility] [address] [facility] [address] [place], [place] - [address] [facility]. [address] [place] [id number] Durable Medical Equipment Durable Medical Equipment at home: Roller Walker, Wheelchair (manual), Shower Ch air Home Health Receiving home health: No Hemodialysis or Peritoneal Dialysis Undergoing hemodialysis or peritoneal dialysis: No Tube/Enteral Feeds Receive tube/enteral feeds: No Infusion Receive infusions: No Private Duty Private duty help used: No Home and Community Based Services Home and community based services: No Roberto White Roberto White: N/A Hospice Hospice: No Outpatient Therapy PT: No OT: No COMPLAINT COORDINATOR: No Half-Way Facility/[facility] SNF: In the past When did patient receive care?: 7 years ago Name of Facility: [facility] Would patient return for future services?: Yes NH: No Inpatient Rehab IPR: No [facility] Hospital LTACH: No Acute Hospital Stay Acute Hospital Stay: No Chloe Pepe LMSW Social Work Case Management Available on Exec TTER OPERATOR documented in this encounter Discharge Instructions * Attachments The following attachments cannot be sent through Care Everywhere.* IR- Arteriogram Discharge Instructions (SYRIAN) documented in this encounter Medications at Time [...] identified. Peripheral IV removed. Pt [facility] via whee lchair with belongings in hand where [place] is [place]. TTER OPERATOR * Shauna Sun OT - 11/05/2022 10:34 AM CST OCCUPATIONAL [...] smoker 25 pk-yr, CAD and stenting, on CAR HEAD LINER INSTALLER ASA81, who neurosurgery wa s consulted for [...] steps to enter Prior Function Level Of [place]: Independent with ADLs and functional transfers;Needed ass [...] ADLs;All home functioning ADLs Therapist: DEBRA Hoffmann/[place] [id number] Date: 11/05/2022 TTER OPERATOR * Jose Manuel Montague MD - 11/04/2022 9:01 AM CST General Progress Note Name: Scot Bell Today's Date: 11/04/2022 Admission Date: 10/24/2022 LOS: 10 days Assessment/Plan: Principal Problem: SDH (subdural hematoma) Active Problems: Essential tremor PAD (peripheral artery disease) (HCC) Delirium Thrombocytopenia (HCC) Primary hypertension 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 Subacute R SPOUT LINER/RODOLFO stroke additional tiny infarcts in BL cerebral [...] increased confusion NIHSS 6 (mainly for ac [place] confusion; inability to answer orientation questions, follow [...] recs. Resume ASA once able. > Cont CAR HEAD LINER INSTALLER statin > Resumed ASA on 11/01 > [...] plan for medical oncology follow up at [facility]. Will follow up PET , and path [...] to essential tremor versus underlying malignancy. > Excel Expert consult for nutritional assessment s/p TAVR several years ago Hx of HTN, HLD, PAD - hx of Stenting/balloon angioplasty to RLE. Has chronic claudication symptoms - CT chest with marked coronary calcifications > Continue CAR HEAD LINER INSTALLER statin. > Change CAR HEAD LINER INSTALLER metoprolol tartrate 50mg BID to Coreg 12.5mg [...] need facility placement. Jose Manuel Montague MD [facility] [id number] I spent 35 minute in patient care. [...] output data in the 24 hours ending 11/04/22 0901 Stool Occurrence: 1 Physical Exam General: thin [...] and other Diagnostics Review: Pertinent radiology reviewed. 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 Subacute R SPOUT LINER/RODOLFO stroke additional tiny infarcts in BL cerebral [...] increased confusion NIHSS 6 (mainly for ac [place] confusion; inability to answer orientation questions, follow [...] recs. Resume ASA once able. > Cont CAR HEAD LINER INSTALLER statin > Resumed ASA on 11/01 > [...] plan for medical oncology follow up at [facility]. Will follow up PET , and path [...] to essential tremor versus underlying malignancy. > Excel Expert consult for nutritional assessment s/p TAVR several years ago Hx of HTN, HLD, PAD - hx of Stenting/balloon angioplasty to RLE. Has chronic claudication symptoms - CT chest with marked coronary calcifications > Continue CAR HEAD LINER INSTALLER statin. > Change CAR HEAD LINER INSTALLER metoprolol tartrate 50mg BID to Coreg 12.5mg [...] need facility placement. Jose Manuel Montague MD [employer] [id number] Voalte is the preferred method of communication. Please use the [employer] First Call for all patient-related communications. Pe [...] (Last 24 hours) Glucose: (!) 105 (11/03/22 9803) Radiology and other Diagnostics Review: Pertinent radiology reviewed. 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 Subacute R SPOUT LINER/RODOLFO stroke additional tiny infarcts in BL cerebral [...] increased confusion NIHSS 6 (mainly for ac [place] confusion; inability to answer orientation questions, follow [...] recs. Resume ASA once able. > Cont CAR HEAD LINER INSTALLER statin > Resumed ASA on 11/01 > [...] plan for medical oncology follow up at [facility]. Will follow up PET , and path [...] to essential tremor versus underlying malignancy. > Excel Expert consult for nutritional assessment s/p TAVR several years ago Hx of HTN, HLD, PAD - hx of Stenting/balloon angioplasty to RLE. Has chronic claudication symptoms - CT chest with marked coronary calcifications > Continue CAR HEAD LINER INSTALLER statin. > Change CAR HEAD LINER INSTALLER metoprolol tartrate 50mg BID to Coreg 12.5mg [...] need facility placement. Jose Manuel Montague MD [employer] [id number] Voalte is the preferred method of communication. Please use the [employer] First Call for all patient-related communications. Pe [...] MINUTE (11/02 114) SpO2: 97 % (11/02 114) O2 Device: None (Room air) (11/02 114) BP: (89-188)/(33-67) Temp: [36.5 C (97.7 F)-37.1 [...] and other Diagnostics Review: Pertinent radiology reviewed. TTER OPERATOR * Ramona Coates, PT - 11/01/2022 [...] r 25 pk-yr, CAD and stenting, on CAR HEAD LINER INSTALLER ASA81, who neurosurgery was consulted for r [...] mobility Therapist: Ramona Coates, PT Date: 11/01/2022 TTER OPERATOR * Shauna Sun, OT - 11/01/2022 [...] smoker 25 pk-yr, CAD and stenting, on CAR HEAD LINER INSTALLER ASA81, who neurosurgery wa s consulted for [...] steps to enter Prior Function Level Of [place]: Independent with ADLs and functional transfers;Needed ass [...] ADLs;All home functioning ADLs Therapist: DEBRA Hoffmann/[place] [id number] Date: 11/01/2022 TTER OPERATOR * Ramona Urbina SRNA - 11/01/2022 [...] (11/01 0750) O2 Device: Nasal cannula (11/01 750) O2 Liter Flow: 2 Lpm (11/01 0750) [...] or pain. No other anesthetic issued noted. 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 Subacute R SPOUT LINER/RODOLFO stroke additional tiny infarcts in BL cerebral [...] increased confusion NIHSS 6 (mainly for ac [place] confusion; inability to answer orientation questions, follow [...] recs. Resume ASA once able. > Cont CAR HEAD LINER INSTALLER statin > Resumed ASA on 11/01 > [...] plan for medical oncology follow up at [facility]. Will follow up PET , and path [...] to essential tremor versus underlying malignancy. > Excel Expert consult for nutritional assessment s/p TAVR several years ago Hx of HTN, HLD, PAD - hx of Stenting/balloon angioplasty to RLE. Has chronic claudication symptoms - CT chest with marked coronary calcifications > Continue CAR HEAD LINER INSTALLER statin. > Change CAR HEAD LINER INSTALLER metoprolol tartrate 50mg BID to Coreg 12.5mg [...] their best satisfaction. Sahil Mejia MD Hospitalist [employer] [phone] Voalte is the preferred method of communication. Please use the [employer] First Call for all patient-related communications. Pe rsonal Voaltes and pagers are not answered at all hours. I spent a total of more than 35 minutes directly involved in pt care today with more than half of the time spent counseling and evaluating pt [id number], and on the unit/floor coordinating care (coordinating with RN, SW/CM, PT/OT, RT), a nd reviewing chart, labs/radiology, and retail sales vitamin consultant recommendations, and discussi ng with pulmonary. [...] at 11/01/2022 0739 Last data filed at 10/31/2022 2102 Gross per 24 hour Intake 275 ml [...] and other Diagnostics Review: Pertinent radiology reviewed. TTER OPERATOR * Symone Shah OT - 10/31/2022 [...] to surgery soon after end of session. Excel Expert came in upon arrival. OT/PT to continue therapy with pt at time to strengthen UE and independence with ADLs, and build endurance. Therapist: PRASHANTH Ramirez, OTR/L Date: 10/31/2022 TTER OPERATOR * Ramona Coates, PT - 10/31/2022 [...] r 25 pk-yr, CAD and stenting, on CAR HEAD LINER INSTALLER ASA81, who neurosurgery was consulted for r [...] mobility Therapist: Ramona Coates, PT Date: 10/31/2022 TTER OPERATOR * Sahil Mejia MD - 10/31/2022 7:52 AM CST General Progress Note Name: Scot Bell Today's Date: 10/31/2022 Admission Date: 10/24/2022 LOS: 6 days Assessment/Plan: Principal Problem: SDH (subdural hematoma) Active Problems: Essential tremor PAD (peripheral artery disease) (HCC) Delirium Thrombocytopenia (HCC) Primary hypertension 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 Resume ASA once able. > Cont CAR HEAD LINER INSTALLER statin > Will address antiplatelet therapy and [...] plan for medical oncology follow up at [facility]. Will follow up PET , and path [...] to essential tremor versus underlying malignancy. > Excel Expert consult for nutritional assessment s/p TAVR several years ago Hx of HTN, HLD, PAD - hx of Stenting/balloon angioplasty to RLE. Has chronic claudication symptoms - CT chest with marked coronary calcifications > Continue CAR HEAD LINER INSTALLER statin. > Change CAR HEAD LINER INSTALLER metoprolol tartrate 50mg BID to Coreg 12.5mg [...] their best satisfaction. Sahil Mejia MD Hospitalist [employer] [phone] Voalte is the preferred method of communication. Please use the [employer] First Call for all patient-related communications. Pe rsonal Voaltes and pagers are not answered at all hours. I spent a total of more than 35 minutes directly involved in pt care today with more than half of the time spent counseling and evaluating pt [id number], and on the unit/floor coordinating care (coordinating with RN, SW/CM, PT/OT, RT), a nd reviewing chart, labs/radiology, and retail sales vitamin consultant recommendations. Subjective Scot Bell is a [...] options. Discussed placement options inpatient rehab versus half-way, also at the mercy of his insurance [...] air) Intensity Pain Scale (Self Report): 0 (12/21/22 2148) Vitals: 10/25/22 0902 Weight: 58.5 kg (129 lb) Intake/Output Summary: (Last 24 hours) Intake/Output Summary (Last 24 hours) at 10/31/2022 0752 Last data filed at 10/31/2022 0416 Gross [...] Care Testing (Last 24 hours) Glucose: 85 (10/31/22 0426) Radiology and other Diagnostics Review: Pertinent radiology reviewed. TTER OPERATOR * Case Tyler, CAR HEAD LINER INSTALLER - 10/30/2022 3:33 PM CST PHYSICAL THERAPY [...] r 25 pk-yr, CAD and stenting, on CAR HEAD LINER INSTALLER ASA81, who neurosurgery was consulted for r [...] Physical Assist With: All mobility Therapist: Case Tyler PTA Date: 10/30/2022 TTER OPERATOR * Cheryl Barrientos OT - 10/30/2022 1:30 PM CST OCCUPATIONAL THERAPY NOTE Name: Scot Bell : 1940 Age: 82 y.o. Admission Date: 10/24/2022 LOS: 5 days Date of Service: 10/30/2022 Transport present to take pt to PET scan at scheduled therapy time. Will continu e to attempt as able. 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 Subacute R SPOUT LINER/RODOLFO stroke additional tiny infarcts in BL cerebral [...] increased confusion NIHSS 6 (mainly for ac [place] confusion; inability to answer orientation questions, follow [...] recs. Resume ASA once able. > Cont CAR HEAD LINER INSTALLER statin > Will address antiplatelet therapy and [...] to essential tremor versus underlying malignancy. > Excel Expert consult for nutritional assessment s/p TAVR several years ago Hx of HTN, HLD, PAD - hx of Stenting/balloon angioplasty to RLE. Has chronic claudication symptoms - CT chest with marked coronary calcifications > Continue CAR HEAD LINER INSTALLER statin and BB. Has PRN Labetalol and [...] their best satisfaction. Sahil Mejia MD Hospitalist [employer] [phone] Voalte is the preferred method of communication. Please use the [employer] First Call for all patient-related communications. Pe rsonal Voaltes and pagers are not answered at all hours. I spent a total of more than 35 minutes directly involved in pt care today with more than half of the time spent counseling and evaluating pt [id number], and on the unit/floor coordinating care (coordinating with RN, SW/CM, PT/OT, RT), a nd reviewing chart, labs/radiology, and retail sales vitamin consultant recommendations. Subjective Scot Bell is a [...] and other Diagnostics Review: Pertinent radiology reviewed. TTER OPERATOR * Dottie Montes RD - 10/29/2022 [...] to establish subjective hi story and to behavioral school counselors on way to optimize nutrient intake to meet metabolic demand s. Nutrition Assessment of Patient: Admit Weight: 58.5 kg; ; BMI (Calculated): 20.2; BMI Categories Adult: Acceptable: 18.5-24.9; Pertinent Allergies/Intolerances: none to note Pertinent Labs: reviewed; nutritionally unremarkable; Pertinent Meds: lipitor, c olace, miralax, senokot; Oral Diet Order: NPO at midnight (PET Scan); Current Oral Intake: Marginally Adequate Estimated Calorie Needs: 2386-8520 (27-30 kcal/kg current weight) Estimated Protein Needs: [...] +/- 5% Time Frame: Throughout stay Dottie Montes MS, RD, LD, [facility] Office: [phone] [facility] TTER OPERATOR * Case Tyler PTA - 10/29/2022 1:40 PM CST PHYSICAL THERAPY NOTE Name: Scot Bell : 1940 Age: 82 y.o. Admission Date: 10/24/2022 LOS: 4 days Date of Service: 10/29/2022 Attempted to work with patient at scheduled time with rehabilitation aide/scheduler. Patient was un available for physical therapy, off unit for procedure. Physical therapy will co ntinue to follow and provide intervention as indicated. Therapist: Case Tyler PTA Date: 10/29/2022 TTER OPERATOR * Chioma Metzger MD - 10/29/2022 [...] once all procedures are complete. Subacute R SPOUT LINER/RODOLFO stroke additional tiny infarcts in BL cerebral [...] increased confusion NIHSS 6 (mainly for ac [place] confusion; inability to answer orientation questions, follow [...] PFO, closure if PFO detected > Cont CAR HEAD LINER INSTALLER statin > Will address antiplatelet therapy and [...] to essential tremor versus underlying malignancy. > Excel Expert consult for nutritional assessment s/p TAVR several years ago Hx of HTN, HLD, PAD - hx of Stenting/balloon angioplasty to RLE. Has chronic claudication symptoms - CT chest with marked coronary calcifications > Continue CAR HEAD LINER INSTALLER statin and BB. Has PRN Labetalol and [...] of the time was spen t in setn-wm-ngts contact with the patient at bedside. Chioma Metzger MD Clinical Clerical Adviser - Internal Medicine Dept [facility] [phone] Subjective Scot Bell is a 82 y.o. [...] Review: Pertinent radiology reviewed. Chioma Metzger MD [facility] [phone] TTER OPERATOR * Elaine Monterroso, OT - 10/29/2022 [...] smoker 25 pk-yr, CAD and stenting, on CAR HEAD LINER INSTALLER ASA81, who neurosurgery wa s consulted for [...] Home Equipment: Cane;Walker;Wheelchair-manual Prior Function Level Of [place]: Independent with ADLs and functional transfers;Needed ass [...] pivot Other Transfer: Assistance Level: From;Bedside chair;To;Wheelchair;Minimal tmi t;x2 people Other Transfer: Assistive Device: Hand [...] Cognitive Status: Impaired Cognition Comment: patient demonstrates HAVASUPAI and word finding difficulties. Per darlene prather, [...] ADLs;All home functioning ADLs Therapist: DEBRA Petersen/[place] [id number] Date: 10/29/2022 TTER OPERATOR * Madhavi Rodrigez, ANGELITA-TUBE TESTER - 10/29/2022 9:55 AM CST Neurosurgery Progress [...] once procedures are completed. Pain control PRN CAR HEAD LINER INSTALLER ASA 81 mg held Neurology stroke completing stroke work up -requesting ANSELMO, ordered Bowel program + Void PT/OT to eval-rehab following, anticipate placement need at discharge CT chest with primary lung mass likely metastatic disease, onc consulted -EBUS/bronchoscopy changed to 10/29. -PET pending Neurosurgery will sign off at this time, please call with questions. Neurosurgery follow up requested Please page [phone] with any questions. GABRIELLA Clifford Voalte me TTER OPERATOR * Dottie Aldridge APRN-NP - 10/29/2022 [...] of a small moderately sized subacute right SPOUT LINER territory infarct, stable size of right subdural [...] plan for medical oncology follow up at [facility] Patient discussed with Dr. Lemus. Subjective Scot [...] Redemonstration of a small-moderately sized subacute right SPOUT LINER territory infarct without evidence of hemorrhagic conversion. [...] right upper lobe opacity and patchy underlying yomoiaikiii-uiuc-rc-bud opacities throughout the visualized lungs. There is [...] with a dominant small to moderate-sized right SPOUT LINER territory infarct. Unchanged associated right occipitotemporal mass [...] CTA head-neck could reflect an osseous metastasis. SOFIA PatelTUBE TESTER On Voalte Pager # [phone] Total Time Today was 25 minutes in the following activities: Preparing to see th e patient, Obtaining and/or reviewing separately obtained history, Performing a medically appropriate examination and/or evaluation, Counseling and educating th e patient/family/caregiver, Documenting clinical information in the electronic o r other health record and Care coordination (not separately reported) TTER OPERATOR * Hema Ashford MD - 10/28/2022 [...] Pulmonary consult for bronch oscopy. He is 895-njux-cngi smoker; currently smoking 1/2 pack/day. On Imaging [...] 59 (10/28 1600) Respirations: 18 PER MINUTE (12/19 1600) SpO2: 97 % (10/28 1600) O2 [...] and other Diagnostics Review: Pertinent radiology reviewed. TTER OPERATOR Associated attestation - Poncho Garvey MD - 10/28/2022 9:10 PM SPLITTER OPERATOR ATTESTATION I personally performed the torres [...] likely representing a evolving late subacute right SPOUT LINER infarct. 2. New hypodensities within the mixed [...] Redemonstration of a small-moderately sized subacute right SPOUT LINER territory infarct without evidence of hemorrhagic conversion. [...] right upper lobe opacity and patchy underlying gwzqeylziam-fvzc-js-bud opacities throughout the visualized lungs. There is [...] with a dominant small to moderate-sized right SPOUT LINER territory infarct. Unchanged associated right occipitotemporal mass [...] chronic right subdural hemorrhage 2) Subacute Right SPOUT LINER/RODOLFO stroke 3) Essential tremor 4) Left Cervical [...] starting when safe from Neurosurgery standpoint > PT/OT/COMPLAINT COORDINATOR consult eval and treat > Rehab consult for assessment of post stroke care > Recommend limiting narcotics for pain relief as much as tolerable for patient. > Consider changing methocarbamol to baclofen/cyclobenzaprine Patient seen and discussed with Dr. Hayes, who will attest the acute stroke response note from overnight. Chris Wallis MD PGY-2 Neurology Resident Available on Voalte TTER OPERATOR Associated attestation - Juan J Hayes MD - 10/29/2022 11:07 PM SPLITTER OPERATOR ATTESTATION: I performed a history and [...] smoker 25 pk-yr, CAD and stenting, on CAR HEAD LINER INSTALLER ASA81, who neurosurgery wa s consulted for [...] Home Equipment: Cane;Walker;Wheelchair-manual Prior Function Level Of [place]: Independent with ADLs and functional transfers;Needed ass [...] ADLs Therapist: Meena Davies OT Date: 10/28/2022 TTER OPERATOR * Shelyl Ceja, PT - 10/28/2022 1:20 PM CST [...] r 25 pk-yr, CAD and stenting, on CAR HEAD LINER INSTALLER ASA81, who neurosurgery was consulted for r [...] assist, L trunk bernadette improv ed this Transfer Type: Sit to Stand Transfer: Assistance [...] mobility Therapist Shelly Ceja, PT Date 10/28/2022 TTER OPERATOR * Isamar Newell APRN-TUBE TESTER - 10/28/2022 12:26 PM CST Neurosurgery Progress [...] for back discomfort, aqua k-pad, lidoderm patches. CAR HEAD LINER INSTALLER ASA 81 mg held Neurology stroke completing [...] assessed for need for restraints. Please page [phone] with any questions. GABRIELLA Hernandes Voalte nd TTER OPERATOR * Shelly Ceja, PT - 10/28/2022 11:30 AM CST PHYSICAL THERAPY NOTE Name: Scot Bell : 1940 Age: 82 y.o. Admission Date: 10/24/2022 LOS: 3 days Date of Service: 10/28/2022 Patient was unavailable for physical and occupational therapy this AM, off unit for MMA Embo. Therapies will continue to follow and provide intervention as ind icated. Therapist: Shelly Ceja, PT Date: 10/28/2022 TTER OPERATOR * Nina Sigala RN - 10/28/2022 10:18 AM CST has signed the patient out of anesthesia. TTER OPERATOR * Chary Smith MD - 10/28/2022 [...] to anticipated need for AC Subacute R SPOUT LINER/RODOLFO stroke additional tiny infarcts in BL cerebral [...] increased confusion NIHSS 6 (mainly for ac [place] confusion; inability to answer orientation questions, follow [...] out PFO, closure if PFO detected > CAR HEAD LINER INSTALLER statin > ASA once able from a [...] to essential tremor versus underlying malignancy. > Excel Expert consult for nutritional assessment s/p TAVR several years ago Hx of HTN, HLD, PAD - hx of Stenting/balloon angioplasty to RLE. Has chronic claudication symptoms - CT chest with marked coronary calcifications > Continue CAR HEAD LINER INSTALLER statin and BB > Holding ASA at [...] Consult team can be reached at pager [phone] Subjective Scot Bell is a 82 y.o. male. Patient seen at bedside following MMA embolizat ion with daughter in post op. He is having back pain. breannehter states mental sta tus has not recovered [...] tablet 50 mg, 50 mg, Oral, BID [JAN Hold] milk of magnesia (CONC) oral suspension 10 mL, 10 mL, Oral, QDAY [JAN Hold] senna/docusate (SENOKOT-S) tablet 1 tablet, 1 tablet, Oral, BID Continuous Infusions: PRN and Respiratory Meds:[JAN Hold] dextromethorphan/guaiFENesin (ROBITUSSIN-DM ) oral syrup Q6H PRN, [JAN Hold] eucalyptus-menthoL Q2H PRN, hydrALAZINE Q6H PRN , [JAN Hold] ibuprofen Q6H PRN, labetalol (NORMODYNE; TRANDATE) injection Q15 IN N PRN, [JAN Hold] nicotine (polacrilex) Q1H PRN, [JAN Hold] ondansetron (ZOFRAN) IV Q6H PRN, [JAN Hold] oxyCODONE Q4H PRN, [JAN Hold] sodium [...] Lpm Intensity Pain Scale (Self Report): 3 (10/27/228) Vitals: 10/25/22 0902 Weight: 58.5 kg (129 [...] Review: Pertinent radiology reviewed. Chary Smith MD TTER OPERATOR * Cheryl Douglass RN - 10/28/2022 8:06 AM CST Anesthesia staff present to monitor patient airway, vital signs, and medications . See anesthesia docflow. This RN will assist as needed. TTER OPERATOR * Eliceo Rivera - 10/27/2022 11:28 PM CST EEG completed without complications. TTER OPERATOR * Nehemias Blanchard MD - 10/27/2022 [...] monitor at this time. Nehemias Blanchard MD TTER OPERATOR * Anna Abbott MD - 10/27/2022 [...] assessed for need for restraints. Please page [phone] with any questions. Anna Abbott MD Voalte me TTER OPERATOR Associated attestation - Jose Gallo MD - 10/27/2022 10:22 AM SPLITTER OPERATOR Attending Note Patient and imaging reviewed with resident/ TUBE TESTER. Patient seen and examined. I ag ree [...] likely representing a evolving late subacute right SPOUT LINER infarct. 2. New hypodensities within the mixed [...] Redemonstration of a small-moderately sized subacute right SPOUT LINER territory infarct without evidence of hemorrhagic conversion. [...] right upper lobe opacity and patchy underlying rxsumajzyur-sqrd-mu-bud opacities throughout the visualized lungs. There is [...] chronic right subdural hemorrhage 2) Subacute Right SPOUT LINER/RODOLFO stroke 3) Essential tremor 4) Left Cervical [...] starting when safe from Neurosurgery standpoint > PT/OT/COMPLAINT COORDINATOR consult eval and treat > Rehab consult [...] air) (10/26 1758) SpO2 Pulse: 84 (10/26 0833) BP: (92-143)/(41-73) Temp: [36.7 C (98 F)-37.9 [...] POC Glucose (Download): 98 Jo Whittaker MD TTER OPERATOR Associated attestation - Judith Dean MD - 10/29/2022 9:57 PM SPLITTER OPERATOR ATTESTATION (LATE ENTRY) I personally performed [...] ate mediastinal and bilateral hilar lymphadenopathy. A escrow representative left lower paratracheal conglomerate measures 3.7 [...] and summarize my own impression as fo del: - Multiple vascular territory arterial ischemic strokes, subacute. His serial head CT scans confirmed interval development of cerebral ischemic str sherrell between October 12, 2022 and October 24, 2022 and this was also supported b y evidence of subacute restricted diffusion patterns on his brain MRI. The most conspicuous stroke is of at least moderate size in the right posterior cerebral arterial (SPOUT LINER) territory. The tiny right lateral cerebellar stroke [...] et al. J Neurosurg Sci (2009);53(4):157-159. PMID: 78843829]. - Chronic cerebral ischemia, moderate. This was [...] arteries [SHAHNAZ Israelo et al. Stroke (2020 );52(7):8304-2266. PMID: 24679007]. - Familial essential tremor. The patient was [...] October 26, 2022 Neurology/Movement Disorders Attending Pager [phone] or Voalte * Chris Roberson RN - 10/26/2022 6:43 PM CST 10/26/22 [...] signs remain within ranges. Continue to monitor. TTER OPERATOR * Cayden Sewell - 10/26/2022 1:01 PM CST Extended 65 minute EEG completed at bedside. Impedances below 5,000 Ohms. Photic stimulation, QA, and eye open/close performed. Patient highly restive, though o riented. TTER OPERATOR * Anna Abbott MD - 10/26/2022 [...] assessed for need for restraints. Please page [phone] with any questions. Anna Abbott MD Voalte me TTER OPERATOR Associated attestation - Jose Gallo MD - 10/27/2022 10:12 AM SPLITTER OPERATOR Attending Note Patient and imaging reviewed with resident/ TUBE TESTER. Patient seen and examined. I ag ree [...] smoker 25 pk-yr, CAD and stenting, on CAR HEAD LINER INSTALLER ASA81, who neurosurgery wa s consulted for [...] Home Equipment: Cane;Walker;Wheelchair-manual Prior Function Level Of [place]: Independent with ADLs and functional transfers;Needed ass [...] of Assistance: For balance;For safety considerations;For [facility] deficit End of Activity Status: Instructed patient [...] personal care ADLs;All home functioning ADLs Therapist: VINH Petersen [id number] Date: 10/25/2022 TTER OPERATOR * Shelly Ceja, PT - 10/25/2022 [...] r 25 pk-yr, CAD and stenting, on CAR HEAD LINER INSTALLER ASA81, who neurosurgery was consulted for r [...] mobility Therapist Shelly Ceja, PT Date 10/25/2022 TTER OPERATOR * Chris Wallis MD - 10/25/2022 [...] likely representing a evolving late subacute right SPOUT LINER infarct. 2. New hypodensities within the mixed [...] Redemonstration of a small-moderately sized subacute right SPOUT LINER territory infarct without evidence of hemorrhagic conversion. [...] right upper lobe opacity and patchy underlying dzlayyhzcyg-btlk-xr-bud opacities throughout the visualized lungs. There is [...] chronic right subdural hemorrhage 2) Subacute Right SPOUT LINER stroke 3) Essential tremor Impression: Patient presents [...] starting when safe from Neurosurgery standpoint > PT/OT/COMPLAINT COORDINATOR consult eval and treat > Rehab consult for assessment of post stroke care > Order NUR55 "RN Stroke Dysphagia screening (swallow eval)" > Please call [facility] community health nurse staff ([phone]) for non-ICU patient and [facility] community health nurse staff [phone] to perform the NIHSS and dysphagia screen. > Strict NPO until swallow evaluation completed > SCDs for DVT prevention Patient seen and discussed with Dr. Dean, who will attest the original c onsult note Chris Wallis MD PGY-2 Neurology Resident Available on Voalte TTER OPERATOR Associated attestation - Judith Dena MD - 10/29/2022 8:37 PM SPLITTER OPERATOR ATTESTATION (LATE ENTRY) I saw and [...] October 25, 2022 Neurology/Movement Disorders Attending Pager [phone] * Isamar Newell, ANGELITA-TUBE TESTER - 10/25/2022 7:35 AM CST Neurosurgery Progress [...] Brightly awake, engaged in exam and conversation HAVASUPAI Oriented x 3 STUART, follows commands A/P: [...] been working on best intervention, CT head 10/24 with some mixed density otherwise stable, awaiting final recs from Neurology Stroke in terms of anti-platelet, etc. Anticipate may be more of a candidate for MMA th an sherley holes. Addendum: Right upper [...] assessed for need for restraints. Please page [phone] with any questions. GABRIELLA Hernandes Vomadelynte me TTER OPERATOR documented in this encounter H&P Notes * Carlos Hernandez MD - 10/31/2022 3:16 PM CST History and Physical Update Note No changes to HPI from 10/27/22 and progress note from 10/28/22 documented by [facility] pulmonary service. PET CT performed since that time was limited but demonstra toby hypermetabolic activity of the dominant R lesion and hilar/mediastinal lymph nodes. Discussed with patient and daughter, will proceed with robotic guided T BBx of R lesion with EBUS lymph node station biopsies for staging. Carlos Hernandez MD Pager : Voalte TTER OPERATOR Source Note - Esequiel Suarez III, MD - 10/27/2022 11:38 AM SPLITTER OPERATOR Pulmonary and Critical Care Medicine Consult [...] discovered. Pulmonary consult for bronch oscopy. 1. 473-ejit-hdnh smoker; currently smoking 1/2 pack/day 2. Right [...] and hilar lymphadenopathy, and emphysematous changes. Pul carlos consulted for bronchoscopy. He is unaware of any prior pulmonary issues. He has never been hospitalized for any respiratory issues. It sounds as though he has had pulmonary function test ing in the past, results unknown. He does not use inhalers. He has a 510-fstt-hhkb smoking history; currently smoking 1/2 pack/day. Review [...] 7.1 TOTBILI 0.4 ALBUMIN 4.0 Recent Labs 10/24/22 2138 10/26/22 0959 10/27/22 0416 HGB 12.5* 11.7* 11.9* HCT 37.4* 34.9* 35.1* WBC 7.5 7.4 6.3 PLTCT 116* 98* 92* INR 1.2 -- -- No results for input(s): PHART, PCO2A, PO2ART, HCO3A, W2LEOTERA in the last 72 h ours. Radiology [...] recommended. 8. Marked coronary artery calcification. Esequiel Saurez III, MD Pager [phone] TTER OPERATOR documented in this encounter Procedure Notes * Portillo March MD - 10/28/2022 9:57 AM CST Immediate Post Procedure Note 10/28/22 Attending Physician: Portillo March MD Director Imaging(s): none Procedure(s): diagnostic cerebral angiogram - particle [...] 9282 Codin - US access rt Ulnar 88212 - Embosphere embolization of right middle meningeal artery 12893 - right internal carotid artery selection 12736 - right middle meningeal artery selection 57140 - embolization 63304 - post embo angiogram TTER OPERATOR * Hermann Shah MD - 10/27/2022 11:45 PM CST Images from the original note were not included. INPATIENT >1 HOUR EEG REPORT Scot Bell 1940 [id number] Date of service: 10/27/22 History: This is a 82 y.o. male presenting with R. SDH, R SPOUT LINER stroke, and enceph alopathy Pertinent medications: Scheduled [...] shiva dy is performed from 2202 to 2308 on 10/27/22 . Description: In the most [...] - no significant changes. Hermann Shah MD TTER OPERATOR * Hermann Shah MD - 10/26/2022 6:21 PM CST Images from the original note were not included. INPATIENT >1 HOUR EEG REPORT Scot Bell 1940 [id number] Date of service: 10/26/22 History: This is a 82 y.o. male presenting with R. SDH, R SPOUT LINER stroke, and enceph alopathy Pertinent medications: Scheduled [...] study was performed using digital electroencephalographic recording [employer] 10-20 electrode placement was used [...] interpretations in this study. Hermann Shah MD TTER OPERATOR documented in this encounter Consult Notes [...] discovered. Pulmonary consult for bronch oscopy. 1. 490-jcwv-ayfa smoker; currently smoking 1/2 pack/day 2. Right [...] does not use inhalers. He has a 502-ppgn-hpcx smoking history; currently smoking 1/2 pack/day. Review [...] rashes on exposed skin Lab: Recent Labs 10/24/22 2138 10/26/22 0959 10/27/22 0416 NA 141 138 140 K 3.9 3.6 3.8 CL 105 106 106 CO2 26 21 24 BUN 27* 19 18 CR 1.01 1.01 0.97 GLU 95 136* 96 GAP 10 11 10 MG 2.2 -- -- CA 9.3 9.0 8.7 Recent Labs 10/24/228 ALKPHOS 105 AST 65* ALT 63* TOTPROT 7.1 TOTBILI 0.4 ALBUMIN 4.0 Recent Labs 10/24/22 2138 10/26/22 0959 10/27/22 0416 HGB 12.5* 11.7* 11.9* HCT 37.4* 34.9* 35.1* WBC 7.5 7.4 6.3 PLTCT 116* 98* 92* INR 1.2 -- -- No results for input(s): PHART, PCO2A, PO2ART, HCO3A, X0DHXNUFA in the last 72 h ours. Radiology [...] artery calcification. Esequiel Suarez III, MD Pager [phone] TTER OPERATOR * Linda Johnson, BUSINESS SYSTEM CONSULTANT-TUBE TESTER - 10/27/2022 11:29 AM CSTAssociated Order(s): CONSULT [...] Please page with any questions or concerns. Linda Johnson APRN-TUBE TESTER Pgr [phone] IR Team Pager [phone] (After-hours and Weekends) Procedure: R MMA embolization [...] air) Intensity Pain Scale (Self Report): 5 (10/27/22922) Vitals: 10/25/22901 Weight: 58.5 kg (129 lb) [...] 0.04 0 - 0.20 K/UL Radiology: Reviewed. TTER OPERATOR * Case Wood MD - 10/27/2022 7:16 AM CSTAssociated Order(s): CONSULT REHABILITATION MEDICINE PHYSICIAN ATTESTATION I personally performed the torres portions of the E/M visit, discussed case with re sident and concur with resident documentation of history, physical exam, assessm ent, and treatment plan unless otherwise noted. Staff name: Caes Wood MD Date: 10/27/2022 Physical Medicine & Rehabilitation Consult Service Name: Scot Bell : 1940 Age: 82 y. o. Admission Date: 10/24/2022 LOS: 2 Date of Service: 10/27/22 Financial Class: Payor: Payor: [employer] MEDICARE / Plan: [employer] MEDICARE PPO / [...] a 82 y.o. male admitted to [facility] on 10/24/2022 with the following issues: [...] and wondering about placement closer to home ([facility]). Education provided on options of both IRF [...] with oral agents prior to transfer to [facility]. Thank you for this consultation. Rehabilitation Medicine will continue to karri matos. Impairments: cognitive impairments, loss of coordination, neurogenic [...] medical history of Arthritis, Ble eding disorder ([facility]), Hypertension, PAD (peripheral artery disease) ([facility]), and T remor. Admitted to [facility] on 10/24/2022 as a transfer from OSH with CT head findi ngs including right subdural hemorrhage (acute and chronic) with some associated midline shift as well as areas of low density in the brain concerning for recent ischemic injury. Patient admitted to neurosurgery service with neurology foll khoi for stroke work-up (ANSELMO pending at this time). Additionally, CT chest fou nd new lung mass and oncology was additionally consulted; planned work-up at thi s point includes bronc, PET. EEG on 10/26/2022 without epileptiform signs but w ith findings indicative of mild to moderate encephalopathy. Acute hospital stay has been complicated by impaired cognition, fatigue, weakness, and impaired ADLs and mobility. Pt is working with PT and OT to address functional and mobility deficits, and re [facility] medicine is now consulted for post-acute rehab/placement [...] declined the need for ADLs this session COMPLAINT COORDINATOR COGNITIVE EVALUATION SUMMARY PRAGMATICS: BEHAVIOR: AUDITORY COMPREHENSION: ORIENTATION: AUDITORY ATTENTION/WORKING MEMORY: AUDITORY MEMORY/SUSTAINED ATTENTION: NEW LEARNING: SEQUENCING/ORGANIZATION: PROBLEM SOLVING: REASONING: MATH/MONEY SKILLS: VISUAL PERCEPTUAL: SWALLOW EVALUATION SUMMARY Review of Systems A 14 point review of systems was negative except for: that noted in the HPI Physical Exam BP: 140/63 (10/27 353) Temp: 36.8 C (98.2 F) (10/27 353) Pulse: 73 (10/27 353) Respirations: 16 PER MINUTE (10/27 353) SpO2: 95 % (10/27 353) O2 Device: None (Room air) (10/27 353) [...] with a dominant small to moderate-sized right SPOUT LINER territory infarct. Unchanged associated right occip itotemporal [...] Redemonstration of a small-moderately sized subacute right SPOUT LINER territory inf arct without evidence of hemorrhagic [...] upper lobe opacity and patchy un derlying aywjwplqlat-llqk-ca-bud opacities throughout the visualized lungs. Ther e [...] Redemonstration of a small-moderately sized subacute right SPOUT LINER territory inf arct without evidence of hemorrhagic [...] upper lobe opacity and patchy un derlying fqztiqbdbho-fwzk-qr-bud opacities throughout the visualized lungs. Ther e [...] likely representing a evolving late subacute right SPOUT LINER infarct . 2. New hypodensities within the [...] TORSO (SKULL-THIGHS) (Results Pending) Marguerite Aparicio MD TTER OPERATOR * Rafal Amaya MD - 10/26/2022 1:51 PM CSTAssociated Order(s): CONSULT ONCOLOGY PHYSICIAN Hematology/Oncology History and Physical Name: Scot Barreral Address: [address] [place] [id number] Date seen: 10/26/22 Setting: Inpt Admit date: [...] 2 spray, Each Nostril , QDAY, Isamar Newell APRN-TUBE TESTER, 2 spray at 10/26/22 0941 hydrALAZINE (APRESOLINE) [...] mg, 500 mg, Oral, BID, Isamar Newell , BUSINESS SYSTEM CONSULTANT-TUBE TESTER, 500 mg at 10/26/22 0940 metoprolol tartrate [...] spray 2 spray, 2 spray, Each Nostri l, PRN, Leoncio Grimm MD, 2 spray at 10/25/22 2350 Social History Tobacco Use Smoking status: Every Day Packs/day: 0.50 Types: Cigarettes Smokeless tobacco: Never Vaping Use Vaping Use: Never used Substance Use Topics Alcohol use: Not Currently Drug use: Not Currently Lives with two sons in [facility] Family History Problem Relation Age [...] with a dominant small to moderate-sized right SPOUT LINER territory infarct. Unchanged associated right occipitotemporal mass [...] Bell Rafal Amaya MD Division of Hematology/Oncology [facility] [place] TTER OPERATOR * Connie Dahl MD - 10/25/2022 [...] questions arise over the weekend. Assessment/Plan: Scot Blel is a 82 y.o. 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 US showed Atherosclerotic disease resulting in a severe, likely near occlusive luminal stenosis of the left cervical vertebral origin. - stroke work up initiated by neurology - defer need for vascular intervention to neuro/neurosurgery - CAR HEAD LINER INSTALLER statin - ASA once able from a [...] malignancy. -Would recommend nutrition consult #HTN - CAR HEAD LINER INSTALLER metoprolol #HLD - CAR HEAD LINER INSTALLER statin #PAD - hx of Stenting/balloon angioplasty to RLE. Has chronic claudication sympt oms. -CAR HEAD LINER INSTALLER statin, holding ASA # - s/p TAVR [...] times per day for pain, off since Sep due to SDH - BB, statin -holding [...] Consult team can be reached at pager [phone] Total floor/unit time (reviewing and writing notes, examining the patient, revie wing test results etc) spent was 70 minutes of which > 50% was spent in care coordination and bedside counseling. __ Primary Care Physician: Jorge Luis Cuba Chief Complaint: Nasal congestion History of Present Illness: Scot Bell is a 82 y.o. male here with multiple ac [place] medical problems with a chief complaint of [...] (Room air) (10/25 902) SpO2 Pulse: 74 (10/250) BP: (114-154)/(59-76) Temp: [36.6 C (97.9 F)-37.2 [...] Range Color,UA YELLOW Turbidity,UA CLEAR CLEAR-CLEAR Specific [place]-Urine 1.028 1.005 - 1.030 pH,UA 5.0 5.0 [...] have reviewed chart. Connie Dahl MD Pager: [phone] Voalte: Connie Dahl TTER OPERATOR * Nehemias Blanchard MD - 10/24/2022 10:57 PM CSTAssociated Order(s): CONSULT NEUROSURGERY PHYSICIAN Neurosurgery Consult History and Physical Examination Scot Bell Admission Date: 10/24/2022 Assessment/Plan: Scot Bell is a 82 y.o. male with PMH of HTN, tremor, current smoker 25 pk-yr, CAD and stenting, on CAR HEAD LINER INSTALLER ASA81, who neurosurgery was consulted for right [...] attending Dr. Cheema on - Please call [phone] with any changes in neurologic exam, questions, or concerns. Nehemias Blanchard MD Voalte Tx Chief Complaint: R SDH History of Present Illness: Scot Bell is a 82 y.o. male with PMH of HTN, tremor, current smoker 25 pk-yr, CAD and stenting, on CAR HEAD LINER INSTALLER ASA81, who neurosurgery was consulted for right [...] plans for return appointment after evaluation of place nt into the trial. The patient's daughter, Tamika, called the clinic phone today from [facility] the patient had been confused today and has had intermittent confusion w ith intermittent numbness/weakness in the lower extremities. He was reporting he adache. CT was obtained at [facility] which was reviewed by Dr. March. He was advised to present to for stroke workup. On bedside evaluation, the [...] has no known allergies. Medications: Not on CAR HEAD LINER INSTALLER AC per patient, ASA81 noted in chart [...] SDH with minimal 3-4 mm midline shift. TTER OPERATOR Associated attestation - Portillo March MD - 10/31/2022 6:42 AM SPLITTER OPERATOR ATTESTATION I personally performed the torres [...] Portillo March MD Date: 10/31/2022 * Petr Almonte DO - 10/24/2022 10:27 PM CSTAssociated Order(s): CONSULT NEUROLOGY PHYSICIAN Neurology Consultation Name: Scot Bell Admission Date: 10/24/2022 LOS: 0 days ED31/ ASSESSMENT: Active Problems: * No active hospital [...] likely representing a evolving late subacute right SPOUT LINER infarct. 2. New hypodensities within the mixed [...] chronic right subdural hemorrhage 2) Subacute Right SPOUT LINER stroke 3) Essential tremor Impression: Patient presents [...] Neurosurgery standpoint > CBC, BMP routine > PT/OT/COMPLAINT COORDINATOR consult eval and treat > Rehab consult for assessment of post stroke care > Order NUR55 "RN Stroke Dysphagia screening (swallow eval)" > Please call [facility] community health nurse staff ([phone]) for non-ICU patient and [facility] community health nurse staff [phone]) to perform the NIHSS and dysphagia screen. > Strict NPO until swallow evaluation completed > SCDs for DVT prevention > If concern remains for focal motor seizures of LLE, consider starting Keppra Thank you for allowing us to participate in the care of this patient. Please pag e neurology automatic centrifugal station operator with any further questions or concerns. Patient plan of care discussed with Dr. Dean and communicated to primary team. Petr Almonte, DO Neurology, PGY-2 Available on Voalte Consult pager [phone] __ History of Present Illness: Scot Bell [...] possible recent ischemic injury, and came to [facility] for further workup/management. He denies any visual [...] Range Color,UA YELLOW Turbidity,UA CLEAR CLEAR-CLEAR Specific [place]-Urine 1.028 1.005 - 1.030 pH,UA 5.0 5.0 [...] Petr Almonte DO Neurology Resident Consult pager [phone] TTER OPERATOR Associated attestation - Judith Dean MD - 10/29/2022 8:36 PM SPLITTER OPERATOR ATTESTATION (LATE ENTRY) I personally performed [...] basal and mesial occipitotemporal [posterior cerebral arterial] SPOUT LINER t erritory [ischemic stroke] and a tiny [...] 27, 2022 then October 10, 2022 then [facility] 2021 and now October 24, 2022), it [...] size in the right posterior cerebral arterial (SPOUT LINER) territory. The tiny right lateral cerebellar stroke [...] arteries [SHAHNAZ Villatoro et al. Stroke (2020 );52(7):4122-3377. PMID: [id number]]. - Familial essential tremor. The patient was [...] from overnight. Please also see the pr teodoro note written by Dr. Wallis today, October 25, 2022 after rounds for jennifer tional details. Thank you for requesting a neurology consultation. Neurology will continue to fo llow closely but please call with any questions. Judith Dean MD Date: October 25, 2022 Neurology/Movement Disorders Attending Pager [phone] or Voalte documented in this encounter Nursing Notes * Hermann Shah MD - 10/27/2022 11:25 PM CST Reviewed 1 hr stat EEG - Continuous generalized delta theta slowing with reactivity. No epileptiform activity or seizures. Full report to follow. Hermann Shah MD TTER OPERATOR documented in this encounter ED Notes * Hunter Hernandez MD - 10/25/2022 10:03 AM CST Images from the original note were not included. Scot Bell is a 82 y.o. male. Chief Complaint: Chief Complaint Patient presents with Extremity Weakness All extremity weakness - tremors - gargled speech - all symptoms x2 weeks - se en at [facility] today and told he has a [...] who ordered a head CT at a [facility] facility in [place], [place] head done around noon today - [...] YELLOW Final Turbidity,UA CLEAR CLEAR-CLEAR Final Specific [place]-Urine 1.028 1.005 - 1.030 Final pH,UA 5.0 [...] Redemonstration of a moderate sized subacute right SPOUT LINER territory infarct wit hout evidence of significant [...] with a dominant small to moderate-sized right SPOUT LINER territory infarct. Unchanged associated right occip itotemporal [...] Redemonstration of a small-moderately sized subacute right SPOUT LINER territory inf arct without evidence of hemorrhagic [...] upper lobe opacity and patchy un derlying nbuiqvaogbr-hxeo-oa-bud opacities throughout the visualized lungs. Ther e [...] Redemonstration of a small-moderately sized subacute right SPOUT LINER territory inf arct without evidence of hemorrhagic [...] upper lobe opacity and patchy un derlying cqgxvlofhun-alya-bm-bud opacities throughout the visualized lungs. Ther e [...] likely representing a evolving late subacute right SPOUT LINER infarct . 2. New hypodensities within the [...] [phone] Collection Time Result Time P [place] R [place] T [place] 10/24/22 22:25:58 10/27/22 19:25:58 72 -21 78 Final result Impression: Normal sinus rhythm Minimal voltage criteria for LVH, may be normal variant ( Hernandez product ) Anterior infarct , age undetermined Abnormal ECG When compared with ECG of 12-OCT-2022 18:47, Anterior infarct is now present ST no longer depressed in Lateral leads Confirmed by Ricardo Sparrow ([id number]) on 10/27/2022 7:25:55 PM Medical Decision Making: [...] documentation stated Dr. March had received i maging and requested ED evaluation, however no imaging [...] stroke likely representing evolving late subacute right SPOUT LINER infarct and concer ns of internal bleeding [...] presentation/management was discussed with the following qualified [facility] career and technology education teacher and/or other relevant professionals: None Risk evaluation: [...] Total Stroke Scale Score: 4 Total Score MDM Reviewed: nursing note and vitals Interpretation: labs, [...] Medications: Current Discharge Medication List Procedure Notes: DO Siomara Cárdenas DO Emergency Medicine, PGY-3 Pager #[phone], also available on Voalte [phone] Attestation / Supervision Note concerning Scot Bell: I personally performed t he torres portions of the E/M visit, discussed case with resident and concur with heidi valdes documentation of history, physical exam, assessment, and treatment plan unless otherwise noted. Hunter Henrandez MD FACEP Attestation / Supervision Note concerning Scot Bell: I personally performed t he torres portions of the E/M visit, discussed case with resident and concur with r shandent documentation of history, physical exam, assessment, and treatment plan unless otherwise noted. Hunter Hernandez MD FACEP TTER OPERATOR * Lexie Ch RN - 10/25/2022 1:41 AM CST Report from ARMANDO Jha TTER OPERATOR * Yudelka Cheng RN - 10/24/2022 [...] PAD (peripheral artery disease) (HCC) Tremor \\ TTER OPERATOR documented in this encounter Miscellaneous Notes [...] ADL's and mobility outcomes 11/05/2022 1147 by Kathy Reid RN [...] by Kathy Reid RN Outcome: Goal Ongoing TTER OPERATOR * Care Plan - Chris Roberson [...] Goal: Maximize functional communication Outcome: Goal Ongoing TTER OPERATOR * Care Plan - Chris Roberson [...] Goal: Maximize functional communication Outcome: Goal Ongoing TTER OPERATOR * Care Plan - Chris Roberson [...] Goal: Maximize functional communication Outcome: Goal Ongoing TTER OPERATOR * Care Plan - Chris Roberson [...] Goal: Maximize functional communication Outcome: Goal Ongoing TTER OPERATOR * Care Plan - Dottie Montes RD - 10/31/2022 3:45 PM CST Problem: Nutrition Deficit Goal: Adequate nutritional intake Outcome: Goal Ongoing Flowsheets (Taken 10/31/2022 [id number]) Adequate nutritional intake: Promote oral intake Assess nutritional status Clinical Nutrition is following for increased metabolic demands. RD met with micky newell and family at bedside this afternoon. NPO [...] thin with +temporal/intercostal wasting. Estimated Calorie Needs: 1778-3044 (27-30 kcal/kg current weight) Estimated Protein Needs: [...] butter, oil , peanut butter, etc. Dottie Montes, , RD, LD, [facility] Office: [phone] [facility] TTER OPERATOR * Care Plan - Chris Roberson [...] Goal: Maximize functional communication Outcome: Goal Ongoing TTER OPERATOR * Acute Stroke Response - Shanelle Dudley RN - 10/27/2022 7:19 PM SPLITTER OPERATOR RN Stroke Activation Summary Date of Service: 10/27/2022 Scot Bell is a 82 y.o. male. : 1940 7[birth year] Allergies: Patient has no known allergies. Patient Arrival: (Pt already inpatient on ca7) ASRT Arrival: 1918 Location of Response : [facility] 8339 Page Received: 1915 Clinical Presentation: Visual changes, [...] review imaging. RN handoff: ARMANDO Schmidt RN TTER OPERATOR * Care Plan - Chris Roberson [...] Goal: Maximize ADL functioning Outcome: Goal Ongoing TTER OPERATOR documented in this encounter Plan of Treatment Date/Time Name Type Priority Associated Diag noses 10/31/2022 4:15 PM SPLITTER OPERATOR CYTOLOGY FNA LYMPH NODE Pathology Routine Order Schedule Name Type Priority Associated Diag noses ONE TIME for 1 Occurrences starting 10/11 until 10/31/2022 CYTOLOGY FNA LYMPH NODE Pathology Routine documented as of this encounter Goals Goal Patient Associated Recent Progress Patient-Stat Aut hor Goal Type Problems ed? Recover from illness Hospital On track (10/25/2022 Yes Pina Flores, 4:08 PM SPLITTER OPERATOR) RN Note: "To get better and go home" documented as of this encounter Procedures Comments Procedure Name Priority Date/Time Associated Diag nosis CBC Routine 11/05/2022 4:04 AM SPLITTER OPERATOR COMPREHENSIVE METABOLIC Routine 11/05/2022 PANEL 4:04 AM SPLITTER OPERATOR CONSULT VASCULAR ACCESS Routine 11/04/2022 TEAM 1:05 AM SPLITTER OPERATOR HC CBC W/ AUTOMATED DIFF Routine 11/03/2022 4:13 AM SPLITTER OPERATOR HC COMPREHENSIVE Routine 11/03/2022 METABOLIC PANEL 4:13 AM SPLITTER OPERATOR CONSULT VASCULAR ACCESS Routine 11/02/2022 TEAM 5:48 PM SPLITTER OPERATOR HC CBC W/ AUTOMATED DIFF Routine 11/02/2022 4:04 AM SPLITTER OPERATOR HC COMPREHENSIVE Routine 11/02/2022 METABOLIC PANEL 4:04 AM SPLITTER OPERATOR HC CBC W/ AUTOMATED DIFF Routine 11/01/2022 4:02 AM SPLITTER OPERATOR HC COMPREHENSIVE Routine 11/01/2022 METABOLIC PANEL 4:02 AM SPLITTER OPERATOR ROBOT ASSISTED 10/31/2022 Lung mass BRONCHOSCOPY WITH 3:29 PM SPLITTER OPERATOR IMAGE-GUIDED NAVIGATION- FLEXIBLE CT CHEST WO CONTRAST STAT 10/31/2022 2:41 PM SPLITTER OPERATOR BRONCHOSCOPY 10/31/2022 2:34 PM SPLITTER OPERATOR HC CBC W/ AUTOMATED DIFF Routine 10/31/2022 4:26 AM SPLITTER OPERATOR HC COMPREHENSIVE Routine 10/31/2022 METABOLIC PANEL 4:26 AM SPLITTER OPERATOR NM PET SCAN TORSO BLAYNE 10/30/2022 (SKULL-THIGHS) 2:16 PM SPLITTER OPERATOR HC CBC W/ AUTOMATED DIFF Routine 10/30/2022 4:21 AM SPLITTER OPERATOR HC BASIC METABOLIC PANEL Routine 10/30/2022 4:21 AM SPLITTER OPERATOR ANSELMO W/O CONTRAST Routine 10/29/2022 3:47 PM SPLITTER OPERATOR HC CBC W/ AUTOMATED DIFF Routine 10/29/2022 3:57 AM SPLITTER OPERATOR HC BASIC METABOLIC PANEL Routine 10/29/2022 3:57 AM SPLITTER OPERATOR IR CEREBRAL ANEURYSM Routine 10/28/2022 EMBOLIZATION 9:46 AM SPLITTER OPERATOR TELEMETRY STRIPS-SCAN 10/28/2022 12:00 AM SPLITTER OPERATOR TELEMETRY STRIPS-SCAN 10/28/2022 12:00 AM SPLITTER OPERATOR TELEMETRY STRIPS-SCAN 10/28/2022 12:00 AM SPLITTER OPERATOR TELEMETRY STRIPS-SCAN 10/28/2022 12:00 AM SPLITTER OPERATOR TELEMETRY STRIPS-SCAN 10/28/2022 12:00 AM SPLITTER OPERATOR TELEMETRY STRIPS-SCAN 10/28/2022 12:00 AM SPLITTER OPERATOR TELEMETRY STRIPS-SCAN 10/28/2022 12:00 AM SPLITTER OPERATOR TELEMETRY STRIPS-SCAN 10/28/2022 12:00 AM SPLITTER OPERATOR TELEMETRY STRIPS-SCAN 10/28/2022 12:00 AM SPLITTER OPERATOR TELEMETRY STRIPS-SCAN 10/28/2022 12:00 AM SPLITTER OPERATOR TELEMETRY STRIPS-SCAN 10/28/2022 12:00 AM SPLITTER OPERATOR TELEMETRY STRIPS-SCAN 10/28/2022 12:00 AM SPLITTER OPERATOR TELEMETRY STRIPS-SCAN 10/28/2022 12:00 AM SPLITTER OPERATOR TELEMETRY STRIPS-SCAN 10/28/2022 12:00 AM SPLITTER OPERATOR TELEMETRY STRIPS-SCAN 10/28/2022 12:00 AM SPLITTER OPERATOR TELEMETRY STRIPS-SCAN 10/28/2022 12:00 AM SPLITTER OPERATOR TELEMETRY STRIPS-SCAN 10/28/2022 12:00 AM SPLITTER OPERATOR TELEMETRY STRIPS-SCAN 10/28/2022 12:00 AM SPLITTER OPERATOR TELEMETRY STRIPS-SCAN 10/28/2022 12:00 AM SPLITTER OPERATOR TELEMETRY STRIPS-SCAN 10/28/2022 12:00 AM SPLITTER OPERATOR TELEMETRY STRIPS-SCAN 10/28/2022 12:00 AM SPLITTER OPERATOR TELEMETRY STRIPS-SCAN 10/28/2022 12:00 AM SPLITTER OPERATOR TELEMETRY STRIPS-SCAN 10/28/2022 12:00 AM SPLITTER OPERATOR TELEMETRY STRIPS-SCAN 10/28/2022 12:00 AM SPLITTER OPERATOR EEG DEPARTMENT ORDER STAT 10/27/2022 9:21 PM SPLITTER OPERATOR CBC 10/27/2022 8:55 PM SPLITTER OPERATOR BASIC METABOLIC PANEL 10/27/2022 8:55 PM SPLITTER OPERATOR CONSULT VASCULAR ACCESS Routine 10/27/2022 TEAM 8:22 PM SPLITTER OPERATOR HC CBC,AUTOMATED 91 STAT 10/27/2022 7:[address] HEAD WO CONTRAST STAT 10/27/2022 7:46 PM SPLITTER OPERATOR HC CBC W/ AUTOMATED DIFF Routine 10/27/2022 4:16 AM SPLITTER OPERATOR HC BASIC METABOLIC PANEL Routine 10/27/2022 4:16 AM SPLITTER OPERATOR HC IRON BINDING CAPACITY Routine 10/26/2022 + %SAT 9:59 AM SPLITTER OPERATOR MI BLOOD SMEAR PERIPHERAL Routine 10/26/2022 INTERP PHYS W/WRIT REPORT 9:59 AM SPLITTER OPERATOR HC CBC W/ AUTOMATED DIFF Routine 10/26/2022 9:59 AM SPLITTER OPERATOR HC FOLATE, SERUM Routine 10/26/2022 9:59 AM SPLITTER OPERATOR HC VITAMIN B12 Routine 10/26/2022 9:59 AM SPLITTER OPERATOR HC BASIC METABOLIC PANEL Routine 10/26/2022 9:59 AM SPLITTER OPERATOR EEG DEPARTMENT ORDER Routine 10/26/2022 8:[address] CHEST W CONTRAST Routine 10/26/2022 4:20 AM SPLITTER OPERATOR MRI HEAD WO CONTRAST Routine 10/25/2022 12:30 PM SPLITTER OPERATOR 2D + DOPPLER ECHO W/ Routine 10/25/2022 CONTRAST 12:04 PM SPLITTER OPERATOR CTA NECK WO/W CONT Routine 10/25/2022 8:45 AM SPLITTER OPERATOR CTA HEAD WO/W CONT Routine 10/25/2022 8:45 AM SPLITTER OPERATOR HC HEMOGLOBIN A1C Routine 10/25/2022 7:12 AM SPLITTER OPERATOR HC Routine 10/25/2022 LIPID-5:CHOL/TRG/HDL/LDL+ 7:12 AM SPLITTER OPERATOR VLDL CT HEAD WO CONTRAST STAT 10/24/2022 10:57 PM SPLITTER OPERATOR ECG 12-LEAD STAT 10/24/2022 10:25 PM SPLITTER OPERATOR CHEST SINGLE VIEW STAT 10/24/2022 9:50 PM SPLITTER OPERATOR POC GLUCOSE 10/24/2022 9:40 PM SPLITTER OPERATOR CLEAR TOP EXTRA URINE STAT 10/24/2022 TUBE 9:38 PM SPLITTER OPERATOR UA LEOS TOP TUBE STAT 10/24/2022 9:38 PM SPLITTER OPERATOR URINALYSIS MICROSCOPIC STAT 10/24/2022 REFLEX TO CULTURE 9:38 PM SPLITTER OPERATOR HC URINALYSIS UAR STAT 10/24/2022 9:38 PM SPLITTER OPERATOR HC TSH SCREEN STAT 10/24/2022 9:38 PM SPLITTER OPERATOR HC PT(INR) STAT 10/24/2022 9:38 PM SPLITTER OPERATOR HC CBC W/ AUTOMATED DIFF STAT 10/24/2022 9:38 PM SPLITTER OPERATOR HC MAGNESIUM STAT 10/24/2022 9:38 PM SPLITTER OPERATOR HC COMPREHENSIVE STAT 10/24/2022 METABOLIC PANEL 9:[address] HEAD EXTERNAL IMAGING Routine 10/24/2022 12:00 AM SPLITTER OPERATOR TELEMETRY STRIPS-SCAN 10/24/2022 12:00 AM SPLITTER OPERATOR TELEMETRY STRIPS-SCAN 10/24/2022 12:00 AM SPLITTER OPERATOR TELEMETRY STRIPS-SCAN 10/24/2022 12:00 AM SPLITTER OPERATOR TELEMETRY STRIPS-SCAN 10/24/2022 12:00 AM SPLITTER OPERATOR TELEMETRY STRIPS-SCAN 10/24/2022 12:00 AM SPLITTER OPERATOR TELEMETRY STRIPS-SCAN 10/24/2022 12:00 AM SPLITTER OPERATOR TELEMETRY STRIPS-SCAN 10/24/2022 12:00 AM SPLITTER OPERATOR TELEMETRY STRIPS-SCAN 10/24/2022 12:00 AM SPLITTER OPERATOR TELEMETRY STRIPS-SCAN 10/24/2022 12:00 AM SPLITTER OPERATOR TELEMETRY STRIPS-SCAN 10/24/2022 12:00 AM SPLITTER OPERATOR TELEMETRY STRIPS-SCAN 10/24/2022 12:00 AM SPLITTER OPERATOR documented in this encounter Results * (ABNORMAL) COMPREHENSIVE METABOLIC PANEL (11/05/2022 4:04 AM SPLITTER OPERATOR) Pathologist Signature Component Value Ref Test Method Analysis Performed A t Range Time Sodium 141 137 - 11/05/2022 [facility] DEPT PAT H AND 147 5:19 AM LAB MEDICINE MMOL/L SPLITTER OPERATOR Potassium 3.5 3.5 - 11/05/2022 [facility] DEPT PAT H AND 5.1 5:19 AM LAB MEDICINE MMOL/L SPLITTER OPERATOR Chloride 105 98 - 110 11/05/2022 [facility] DEPT PAT H AND MMOL/L 5:19 AM LAB MEDICINE SPLITTER OPERATOR Glucose 95 70 - 100 11/05/2022 [facility] DEPT PAT H AND MG/DL 5:19 AM LAB MEDICINE SPLITTER OPERATOR Blood Urea Nitrogen 21 7 - 25 11/05/2022 [facility] DEPT PATH AND MG/DL 5:19 AM LAB MEDICINE SPLITTER OPERATOR Creatinine 0.77 0.4 - 11/05/2022 [facility] DEPT PAT H AND 1.24 5:19 AM LAB MEDICINE MG/DL SPLITTER OPERATOR Calcium 8.9 8.5 - 11/05/2022 [facility] PAT H AND 10.6 5:19 AM LAB MEDICINE MG/DL SPLITTER OPERATOR Total Protein 6.8 6.0 - 11/05/2022 [facility] DEPT P ATH AND 8.0 G/DL 5:19 AM LAB MEDICINE SPLITTER OPERATOR Total Bilirubin 0.5 0.3 - 11/05/2022 [facility] DEPT PATH AND 1.2 5:19 AM LAB MEDICINE MG/DL SPLITTER OPERATOR Albumin 3.4 (L) 3.5 - 11/05/2022 [facility] DEPT PAT H AND 5.0 G/DL 5:19 AM LAB MEDICINE SPLITTER OPERATOR Alk Phosphatase 105 25 - 110 11/05/2022 [facility] DEPT PATH AND U/L 5:19 AM LAB MEDICINE SPLITTER OPERATOR AST (SGOT) 62 (H) 7 - 40 11/05/2022 [facility] DEPT PAT H AND U/L 5:19 AM LAB MEDICINE SPLITTER OPERATOR CO2 22 21 - 30 11/05/2022 [facility] DEPT PAT H AND MMOL/L 5:19 AM LAB MEDICINE SPLITTER OPERATOR ALT (SGPT) 54 7 - 56 11/05/2022 [facility] DEPT PAT H AND U/L 5:19 AM LAB MEDICINE SPLITTER OPERATOR Anion Gap 14 (H) 3 - 12 11/05/2022 [facility] PAT H AND 5:19 AM LAB MEDICINE SPLITTER OPERATOR eGFR >60 >60 11/05/2022 [facility] DE[facility] PAT H AND mL/min 5:19 AM LAB MEDICINE SPLITTER OPERATOR Comment: eGFR calculated using the CKD-EPIcr_R equation Anatomical Location / Laterality Collection Method / Volume Eva ection Time Received Time Specimen (Source) BLOOD / Unknown 11/05/2022 4:04 AM SPLITTER OPERATOR 11/05/20 4:05 AM SPLITTER OPERATOR Jose Manuel Montague MD LABORATORY ORDERABLES City/State/ZIP Code Phone Number Performing Address [place] [address] [facility] DEPT PATH AND [address] [facility] LAB MEDICINE * (ABNORMAL) CBC (11/05/2022 4:04 AM SPLITTER OPERATOR) Pathologist Signature Component Value Ref Test Method Analysis Performed A t Range Time White Blood Cells 8.3 4.5 - 11/05/2022 [facility] DE PT PATH AND 11.0 4:58 AM LAB MEDICINE K/UL SPLITTER OPERATOR RBC 3.63 (L) 4.4 - 11/05/2022 [facility] DEPT PAT H AND 5.5 M/UL 4:58 AM LAB MEDICINE SPLITTER OPERATOR Hemoglobin 12.0 (L) 13.5 - 11/05/2022 [facility] DEPT PAT H AND 16.5 4:58 AM LAB MEDICINE GM/DL SPLITTER OPERATOR Hematocrit 35.7 (L) 40 - 50 11/05/2022 [facility] DEPT PAT H AND % 4:58 AM LAB MEDICINE SPLITTER OPERATOR MCV 98.3 80 - 100 11/05/2022 [facility] DEPT PAT H AND FL 4:58 AM LAB MEDICINE SPLITTER OPERATOR MCH 32.9 26 - 34 11/05/2022 [facility] DEPT PAT H AND PG 4:58 AM LAB MEDICINE SPLITTER OPERATOR MCHC 33.5 32.0 - 11/05/2022 [facility] DEPT PAT H AND 36.0 4:58 AM LAB MEDICINE G/DL SPLITTER OPERATOR RDW 13.8 11 - 15 11/05/2022 [facility] DEPT PAT H AND % 4:58 AM LAB MEDICINE SPLITTER OPERATOR Platelet Count 333 150 - 11/05/2022 [facility] DEPT PATH AND 400 K/UL 4:58 AM LAB MEDICINE SPLITTER OPERATOR MPV 8.9 7 - 11 11/05/2022 [facility] DEPT PAT H AND FL 4:58 AM LAB MEDICINE SPLITTER OPERATOR Anatomical Location / Laterality Collection Method / Volume Eva ection Time Received Time Specimen (Source) BLOOD / Unknown 11/05/2022 4:04 AM SPLITTER OPERATOR 11/05/20 4:05 AM SPLITTER OPERATOR Jose Manuel Montague MD LABORATORY ORDERABLES City/State/ZIP Code Phone Number Performing Address [place] [address] [facility] DEPT PATH AND [address] [facility] LAB MEDICINE * (ABNORMAL) CBC AND DIFF (11/03/2022 4:13 AM SPLITTER OPERATOR) Pathologist Signature Component Value Ref Test Method Analysis Performed A t Range Time White Blood Cells 9.0 4.5 - 11/03/2022 [facility] DE PT PATH AND 11.0 5:08 AM LAB MEDICINE K/UL SPLITTER OPERATOR RBC 3.59 (L) 4.4 - 11/03/2022 [facility] DEPT PAT H AND 5.5 M/UL 5:08 AM LAB MEDICINE SPLITTER OPERATOR Hemoglobin 11.9 (L) 13.5 - 11/03/2022 [facility] DEPT PAT H AND 16.5 5:08 AM LAB MEDICINE GM/DL SPLITTER OPERATOR Hematocrit 35.3 (L) 40 - 50 11/03/2022 [facility] DEPT PAT H AND % 5:08 AM LAB MEDICINE SPLITTER OPERATOR MCV 98.3 80 - 100 11/03/2022 [facility] DEPT PAT H AND FL 5:08 AM LAB MEDICINE SPLITTER OPERATOR MCH 33.1 26 - 34 11/03/2022 [facility] DEPT PAT H AND PG 5:08 AM LAB MEDICINE SPLITTER OPERATOR MCHC 33.7 32.0 - 11/03/2022 [facility] DEPT PAT H AND 36.0 5:08 AM LAB MEDICINE G/DL SPLITTER OPERATOR RDW 14.1 11 - 15 11/03/2022 [facility] DEPT PAT H AND % 5:08 AM LAB MEDICINE SPLITTER OPERATOR Platelet Count 247 150 - 11/03/2022 [facility] DEPT PATH AND 400 K/UL 5:08 AM LAB MEDICINE SPLITTER OPERATOR MPV 9.3 7 - 11 11/03/2022 [facility] DEPT PAT H AND FL 5:08 AM LAB MEDICINE SPLITTER OPERATOR Neutrophils 79 (H) 41 - 77 11/03/2022 [facility] DEPT PAT H AND % 5:08 AM LAB MEDICINE SPLITTER OPERATOR Lymphocytes 7 (L) 24 - 44 11/03/2022 [facility] DEPT PAT H AND % 5:08 AM LAB MEDICINE SPLITTER OPERATOR Monocytes 12 4 - 12 % 11/03/2022 [facility] DEPT PAT H AND 5:08 AM LAB MEDICINE SPLITTER OPERATOR Eosinophils 2 0 - 5 % 11/03/2022 [facility] DEPT PAT H AND 5:08 AM LAB MEDICINE SPLITTER OPERATOR Basophils 0 0 - 2 % 11/03/2022 [facility] DEPT PAT H AND 5:08 AM LAB MEDICINE SPLITTER OPERATOR Absolute Neutrophil 7.11 (H) 1.8 - 11/03/2022 [facility] DEPT PATH AND Count 7.0 K/UL 5:08 AM LAB MEDICINE SPLITTER OPERATOR Absolute Lymph Count 0.60 (L) 1.0 - 11/03/2022 [facility] DEPT PATH AND 4.8 K/UL 5:08 AM LAB MEDICINE SPLITTER OPERATOR Absolute Monocyte 1.12 (H) 0 - 0.80 11/03/2022 [facility] DE PT PATH AND Count K/UL 5:08 AM LAB MEDICINE SPLITTER OPERATOR Absolute Eosinophil 0.19 0 - 0.45 11/03/2022 [facility] DEPT PATH AND Count K/UL 5:08 AM LAB MEDICINE SPLITTER OPERATOR Absolute Basophil 0.02 0 - 0.20 11/03/2022 [facility] DE PT PATH AND Count K/UL 5:08 AM LAB MEDICINE SPLITTER OPERATOR Anatomical Location / Laterality Collection Method / Volume Eva ection Time Received Time Specimen (Source) BLOOD / Unknown 11/03/2022 4:13 AM SPLITTER OPERATOR 11/03/20 4:14 AM SPLITTER OPERATOR Sahil Mejia MD LABORATORY ORDERABLES City/State/ZIP Code Phone Number Performing Address [place] [address] [facility] DEPT PATH AND [address] [facility] LAB MEDICINE * (ABNORMAL) COMPREHENSIVE METABOLIC PANEL (11/03/2022 4:13 AM SPLITTER OPERATOR) Pathologist Signature Component Value Ref Test Method Analysis Performed A t Range Time Sodium 141 137 - 11/03/2022 [facility] DEPT PAT H AND 147 5:35 AM LAB MEDICINE MMOL/L SPLITTER OPERATOR Potassium 3.6 3.5 - 11/03/2022 [facility] DEPT PAT H AND 5.1 5:35 AM LAB MEDICINE MMOL/L SPLITTER OPERATOR Chloride 105 98 - 110 11/03/2022 [facility] DEPT PAT H AND MMOL/L 5:35 AM LAB MEDICINE SPLITTER OPERATOR Glucose 105 (H) 70 - 100 11/03/2022 [facility] DEPT PAT H AND MG/DL 5:35 AM LAB MEDICINE SPLITTER OPERATOR Blood Urea Nitrogen 25 7 - 25 11/03/2022 [facility] DEPT PATH AND MG/DL 5:35 AM LAB MEDICINE SPLITTER OPERATOR Creatinine 0.84 0.4 - 11/03/2022 [facility] DEPT PAT H AND 1.24 5:35 AM LAB MEDICINE MG/DL SPLITTER OPERATOR Calcium 8.6 8.5 - 11/03/2022 [facility] DEPT PAT H AND 10.6 5:35 AM LAB MEDICINE MG/DL SPLITTER OPERATOR Total Protein 6.4 6.0 - 11/03/2022 [facility] DEPT P ATH AND 8.0 G/DL 5:35 AM LAB MEDICINE SPLITTER OPERATOR Total Bilirubin 0.5 0.3 - 11/03/2022 [facility] DEPT PATH AND 1.2 5:35 AM LAB MEDICINE MG/DL SPLITTER OPERATOR Albumin 3.5 3.5 - 11/03/2022 [facility] DEPT PAT H AND 5.0 G/DL 5:35 AM LAB MEDICINE SPLITTER OPERATOR Alk Phosphatase 88 25 - 110 11/03/2022 [facility] DEPT PATH AND U/L 5:35 AM LAB MEDICINE SPLITTER OPERATOR AST (SGOT) 43 (H) 7 - 40 11/03/2022 [facility] DEPT PAT H AND U/L 5:35 AM LAB MEDICINE SPLITTER OPERATOR CO2 26 21 - 30 11/03/2022 [facility] DEPT PAT H AND MMOL/L 5:35 AM LAB MEDICINE SPLITTER OPERATOR ALT (SGPT) 35 7 - 56 11/03/2022 [facility] DEPT PAT H AND U/L 5:35 AM LAB MEDICINE SPLITTER OPERATOR Anion Gap 10 3 - 12 11/03/2022 [facility] DEPT PAT H AND 5:35 AM LAB MEDICINE SPLITTER OPERATOR eGFR >60 >60 11/03/2022 [facility] DEPT PAT H AND mL/min 5:35 AM LAB MEDICINE SPLITTER OPERATOR Comment: eGFR calculated using the CKD-EPIcr_R equation Anatomical Location / Laterality Collection Method / Volume Eva ection Time Received Time Specimen (Source) BLOOD / Unknown 11/03/2022 4:13 AM SPLITTER OPERATOR 11/03/20 4:14 AM SPLITTER OPERATOR Sahil Mejia MD LABORATORY ORDERABLES City/State/ZIP Code Phone Number Performing Address [place] [address] [facility] DEPT PATH AND [address] [facility] LAB MEDICINE * (ABNORMAL) CBC AND DIFF (11/02/2022 4:04 AM SPLITTER OPERATOR) Pathologist Signature Component Value Ref Test Method Analysis Performed A t Range Time White Blood Cells 7.9 4.5 - 11/02/2022 [facility] DE PT PATH AND 11.0 4:54 AM LAB MEDICINE K/UL SPLITTER OPERATOR RBC 3.48 (L) 4.4 - 11/02/2022 [facility] DEPT PAT H AND 5.5 M/UL 4:54 AM LAB MEDICINE SPLITTER OPERATOR Hemoglobin 11.5 (L) 13.5 - 11/02/2022 [facility] DEPT PAT H AND 16.5 4:54 AM LAB MEDICINE GM/DL SPLITTER OPERATOR Hematocrit 34.5 (L) 40 - 50 11/02/2022 [facility] DEPT PAT H AND % 4:54 AM LAB MEDICINE SPLITTER OPERATOR MCV 99.3 80 - 100 11/02/2022 [facility] DEPT PAT H AND FL 4:54 AM LAB MEDICINE SPLITTER OPERATOR MCH 33.1 26 - 34 11/02/2022 [facility] DEPT PAT H AND PG 4:54 AM LAB MEDICINE SPLITTER OPERATOR MCHC 33.3 32.0 - 11/02/2022 [facility] DEPT PAT H AND 36.0 4:54 AM LAB MEDICINE G/DL SPLITTER OPERATOR RDW 14.2 11 - 15 11/02/2022 [facility] DEPT PAT H AND % 4:54 AM LAB MEDICINE SPLITTER OPERATOR Platelet Count 197 150 - 11/02/2022 [facility] DEPT PATH AND 400 K/UL 4:54 AM LAB MEDICINE SPLITTER OPERATOR MPV 9.3 7 - 11 11/02/2022 [facility] DEPT PAT H AND FL 4:54 AM LAB MEDICINE SPLITTER OPERATOR Neutrophils 76 41 - 77 11/02/2022 [facility] DEPT PAT H AND % 4:54 AM LAB MEDICINE SPLITTER OPERATOR Lymphocytes 9 (L) 24 - 44 11/02/2022 [facility] DEPT PAT H AND % 4:54 AM LAB MEDICINE SPLITTER OPERATOR Monocytes 13 (H) 4 - 12 % 11/02/2022 [facility] DEPT PAT H AND 4:54 AM LAB MEDICINE SPLITTER OPERATOR Eosinophils 2 0 - 5 % 11/02/2022 [facility] DEPT PAT H AND 4:54 AM LAB MEDICINE SPLITTER OPERATOR Basophils 0 0 - 2 % 11/02/2022 [facility] DEPT PAT H AND 4:54 AM LAB MEDICINE SPLITTER OPERATOR Absolute Neutrophil 6.02 1.8 - 11/02/2022 [facility] DEPT PATH AND Count 7.0 K/UL 4:54 AM LAB MEDICINE SPLITTER OPERATOR Absolute Lymph Count 0.70 (L) 1.0 - 11/02/2022 [facility] DEPT PATH AND 4.8 K/UL 4:54 AM LAB MEDICINE SPLITTER OPERATOR Absolute Monocyte 1.03 (H) 0 - 0.80 11/02/2022 [facility] DE PT PATH AND Count K/UL 4:54 AM LAB MEDICINE SPLITTER OPERATOR Absolute Eosinophil 0.16 0 - 0.45 11/02/2022 [facility] DEPT PATH AND Count K/UL 4:54 AM LAB MEDICINE SPLITTER OPERATOR Absolute Basophil 0.03 0 - 0.20 11/02/2022 [facility] DE PT PATH AND Count K/UL 4:54 AM LAB MEDICINE SPLITTER OPERATOR Anatomical Location / Laterality Collection Method / Volume Eva ection Time Received Time Specimen (Source) BLOOD / Unknown 11/02/2022 4:04 AM SPLITTER OPERATOR 11/02/20 4:05 AM SPLITTER OPERATOR Sahil Mejia MD LABORATORY ORDERABLES City/State/ZIP Code Phone Number Performing Address [place] [address] [facility] DEPT PATH AND [address] [facility] LAB MEDICINE * (ABNORMAL) COMPREHENSIVE METABOLIC PANEL (11/02/2022 4:04 AM SPLITTER OPERATOR) Pathologist Signature Component Value Ref Test Method Analysis Performed A t Range Time Sodium 140 137 - 11/02/2022 [facility] DEPT PAT H AND 147 5:20 AM LAB MEDICINE MMOL/L SPLITTER OPERATOR Potassium 3.8 3.5 - 11/02/2022 [facility] DEPT PAT H AND 5.1 5:20 AM LAB MEDICINE MMOL/L SPLITTER OPERATOR Chloride 104 98 - 110 11/02/2022 [facility] DEPT PAT H AND MMOL/L 5:20 AM LAB MEDICINE SPLITTER OPERATOR Glucose 93 70 - 100 11/02/2022 [facility] DEPT PAT H AND MG/DL 5:20 AM LAB MEDICINE SPLITTER OPERATOR Blood Urea Nitrogen 35 (H) 7 - 25 11/02/2022 [facility] DEPT PATH AND MG/DL 5:20 AM LAB MEDICINE SPLITTER OPERATOR Creatinine 1.03 0.4 - 11/02/2022 [facility] DEPT PAT H AND 1.24 5:20 AM LAB MEDICINE MG/DL SPLITTER OPERATOR Calcium 8.6 8.5 - 11/02/2022 [facility] DEPT PAT H AND 10.6 5:20 AM LAB MEDICINE MG/DL SPLITTER OPERATOR Total Protein 6.1 6.0 - 11/02/2022 [facility] DEPT P ATH AND 8.0 G/DL 5:20 AM LAB MEDICINE SPLITTER OPERATOR Total Bilirubin 0.5 0.3 - 11/02/2022 [facility] DEPT PATH AND 1.2 5:20 AM LAB MEDICINE MG/DL SPLITTER OPERATOR Albumin 3.4 (L) 3.5 - 11/02/2022 [facility] DEPT PAT H AND 5.0 G/DL 5:20 AM LAB MEDICINE SPLITTER OPERATOR Alk Phosphatase 81 25 - 110 11/02/2022 [facility] DEPT PATH AND U/L 5:20 AM LAB MEDICINE SPLITTER OPERATOR AST (SGOT) 49 (H) 7 - 40 11/02/2022 [facility] DEPT PAT H AND U/L 5:20 AM LAB MEDICINE SPLITTER OPERATOR CO2 28 21 - 30 11/02/2022 [facility] DEPT PAT H AND MMOL/L 5:20 AM LAB MEDICINE SPLITTER OPERATOR ALT (SGPT) 38 7 - 56 11/02/2022 [facility] DEPT PAT H AND U/L 5:20 AM LAB MEDICINE SPLITTER OPERATOR Anion Gap 8 3 - 12 11/02/2022 [facility] DEPT PAT H AND 5:20 AM LAB MEDICINE SPLITTER OPERATOR eGFR >60 >60 11/02/2022 [facility] DEPT PAT H AND mL/min 5:20 AM LAB MEDICINE SPLITTER OPERATOR Comment: eGFR calculated using the CKD-EPIcr_R equation Anatomical Location / Laterality Collection Method / Volume Eva ection Time Received Time Specimen (Source) BLOOD / Unknown 11/02/2022 4:04 AM SPLITTER OPERATOR 11/02/20 4:05 AM SPLITTER OPERATOR Sahil Mejia MD LABORATORY ORDERABLES City/State/ZIP Code Phone Number Performing Address [place] [address] [facility] DEPT PATH AND [address] [facility] LAB MEDICINE * (ABNORMAL) CBC AND DIFF (11/01/2022 4:02 AM SPLITTER OPERATOR) Pathologist Signature Component Value Ref Test Method Analysis Performed A t Range Time White Blood Cells 6.1 4.5 - 11/01/2022 [facility] DE PT PATH AND 11.0 4:30 AM LAB MEDICINE K/UL SPLITTER OPERATOR RBC 3.51 (L) 4.4 - 11/01/2022 [facility] DEPT PAT H AND 5.5 M/UL 4:30 AM LAB MEDICINE SPLITTER OPERATOR Hemoglobin 11.8 (L) 13.5 - 11/01/2022 [facility] DEPT PAT H AND 16.5 4:30 AM LAB MEDICINE GM/DL SPLITTER OPERATOR Hematocrit 34.8 (L) 40 - 50 11/01/2022 [facility] DEPT PAT H AND % 4:30 AM LAB MEDICINE SPLITTER OPERATOR MCV 99.2 80 - 100 11/01/2022 [facility] DEPT PAT H AND FL 4:30 AM LAB MEDICINE SPLITTER OPERATOR MCH 33.5 26 - 34 11/01/2022 [facility] DEPT PAT H AND PG 4:30 AM LAB MEDICINE SPLITTER OPERATOR MCHC 33.8 32.0 - 11/01/2022 [facility] DEPT PAT H AND 36.0 4:30 AM LAB MEDICINE G/DL SPLITTER OPERATOR RDW 14.0 11 - 15 11/01/2022 [facility] DEPT PAT H AND % 4:30 AM LAB MEDICINE SPLITTER OPERATOR Platelet Count 165 150 - 11/01/2022 [facility] DEPT PATH AND 400 K/UL 4:30 AM LAB MEDICINE SPLITTER OPERATOR MPV 8.8 7 - 11 11/01/2022 [facility] DEPT PAT H AND FL 4:30 AM LAB MEDICINE SPLITTER OPERATOR Neutrophils 74 41 - 77 11/01/2022 [facility] DEPT PAT H AND % 4:30 AM LAB MEDICINE SPLITTER OPERATOR Lymphocytes 9 (L) 24 - 44 11/01/2022 [facility] DEPT PAT H AND % 4:30 AM LAB MEDICINE SPLITTER OPERATOR Monocytes 16 (H) 4 - 12 % 11/01/2022 [facility] DEPT PAT H AND 4:30 AM LAB MEDICINE SPLITTER OPERATOR Eosinophils 1 0 - 5 % 11/01/2022 [facility] DEPT PAT H AND 4:30 AM LAB MEDICINE SPLITTER OPERATOR Basophils 0 0 - 2 % 11/01/2022 [facility] DEPT PAT H AND 4:30 AM LAB MEDICINE SPLITTER OPERATOR Absolute Neutrophil 4.50 1.8 - 11/01/2022 [facility] DEPT PATH AND Count 7.0 K/UL 4:30 AM LAB MEDICINE SPLITTER OPERATOR Absolute Lymph Count 0.53 (L) 1.0 - 11/01/2022 [facility] DEPT PATH AND 4.8 K/UL 4:30 AM LAB MEDICINE SPLITTER OPERATOR Absolute Monocyte 1.00 (H) 0 - 0.80 11/01/2022 [facility] DE PT PATH AND Count K/UL 4:30 AM LAB MEDICINE SPLITTER OPERATOR Absolute Eosinophil 0.06 0 - 0.45 11/01/2022 [facility] DEPT PATH AND Count K/UL 4:30 AM LAB MEDICINE SPLITTER OPERATOR Absolute Basophil 0.02 0 - 0.20 11/01/2022 [facility] DE PT PATH AND Count K/UL 4:30 AM LAB MEDICINE SPLITTER OPERATOR Anatomical Location / Laterality Collection Method / Volume Eva ection Time Received Time Specimen (Source) BLOOD / Unknown 11/01/2022 4:02 AM SPLITTER OPERATOR 11/01/20 4:03 AM SPLITTER OPERATOR Sahil Mejia MD LABORATORY ORDERABLES City/State/ZIP Code Phone Number Performing Address [place] [address] [facility] DEPT PATH AND [address] [facility] LAB MEDICINE * (ABNORMAL) COMPREHENSIVE METABOLIC PANEL (11/01/2022 4:02 AM SPLITTER OPERATOR) Pathologist Signature Component Value Ref Test Method Analysis Performed A t Range Time Sodium 145 137 - 11/01/2022 [facility] DEPT PAT H AND 147 4:56 AM LAB MEDICINE MMOL/L SPLITTER OPERATOR Potassium 3.6 3.5 - 11/01/2022 [facility] DEPT PAT H AND 5.1 4:56 AM LAB MEDICINE MMOL/L SPLITTER OPERATOR Chloride 109 98 - 110 11/01/2022 [facility] DEPT PAT H AND MMOL/L 4:56 AM LAB MEDICINE SPLITTER OPERATOR Glucose 89 70 - 100 11/01/2022 [facility] DEPT PAT H AND MG/DL 4:56 AM LAB MEDICINE SPLITTER OPERATOR Blood Urea Nitrogen 28 (H) 7 - 25 11/01/2022 [facility] DEPT PATH AND MG/DL 4:56 AM LAB MEDICINE SPLITTER OPERATOR Creatinine 1.01 0.4 - 11/01/2022 [facility] DEPT PAT H AND 1.24 4:56 AM LAB MEDICINE MG/DL SPLITTER OPERATOR Calcium 8.7 8.5 - 11/01/2022 [facility] DEPT PAT H AND 10.6 4:56 AM LAB MEDICINE MG/DL SPLITTER OPERATOR Total Protein 6.1 6.0 - 11/01/2022 [facility] DEPT P ATH AND 8.0 G/DL 4:56 AM LAB MEDICINE SPLITTER OPERATOR Total Bilirubin 0.5 0.3 - 11/01/2022 [facility] DEPT PATH AND 1.2 4:56 AM LAB MEDICINE MG/DL SPLITTER OPERATOR Albumin 3.3 (L) 3.5 - 11/01/2022 [facility] DEPT PAT H AND 5.0 G/DL 4:56 AM LAB MEDICINE SPLITTER OPERATOR Alk Phosphatase 83 25 - 110 11/01/2022 [facility] DEPT PATH AND U/L 4:56 AM LAB MEDICINE SPLITTER OPERATOR AST (SGOT) 63 (H) 7 - 40 11/01/2022 [facility] DEPT PAT H AND U/L 4:56 AM LAB MEDICINE SPLITTER OPERATOR CO2 24 21 - 30 11/01/2022 [facility] DEPT PAT H AND MMOL/L 4:56 AM LAB MEDICINE SPLITTER OPERATOR ALT (SGPT) 40 7 - 56 11/01/2022 [facility] DEPT PAT H AND U/L 4:56 AM LAB MEDICINE SPLITTER OPERATOR Anion Gap 12 3 - 12 11/01/2022 [facility] DEPT PAT H AND 4:56 AM LAB MEDICINE SPLITTER OPERATOR eGFR >60 >60 11/01/2022 [facility] DEPT PAT H AND mL/min 4:56 AM LAB MEDICINE SPLITTER OPERATOR Comment: eGFR calculated using the CKD-EPIcr_R equation Anatomical Location / Laterality Collection Method / Volume Eva ection Time Received Time Specimen (Source) BLOOD / Unknown 11/01/2022 4:02 AM SPLITTER OPERATOR 11/01/20 4:03 AM SPLITTER OPERATOR Sahil Mejia MD LABORATORY ORDERABLES City/State/ZIP Code Phone Number Performing Address [place] [address] [facility] DEPT PATH AND [address] [facility]. LAB MEDICINE * CT CHEST WO CONTRAST (10/31/2022 2:41 PM SPLITTER OPERATOR) Modality Anatomical Region Laterality Computed Tomography CHEST Anatomical Location / Laterality Collection Method / Volume Eva ection Time Received Time Specimen (Source) 10/31/2022 2:54 PM SPLITTER OPERATOR Impressions 10/31/2022 3:29 PM SPLITTER OPERATOR 1. Slight decrease in size of [...] 10/31/2022 2:54 PM. Narrative 10/31/2022 3:[address] CHEST Clinical Indication: navigational bronchoscopic [...] Similar mediastinal and hilar lymphadenopathy with a escrow representative right paratracheal node measuring 1.6 cm [...] Similar mediastinal and hilar lymphadenopathy with a escrow representative right paratracheal node measuring 1.6 cm [...] CT ORDERABLES * BRONCHOSCOPY (10/31/2022 2:34 PM SPLITTER OPERATOR) Pathologist Signature Component Value Ref Test Method Analysis Performed A t Range Time Provation Report Patient [facility] OTHER RESULTS Name: Scot Bell Procedure Date: 10/31/2022 2:34 PM CSN: [id number] Date of : 1940 Gender: Male Attending Physician: Delano Sawant , , [id number] Procedure: Bronchoscopy Indications: Right upper lobe mass Providers: Delano Sawant (Doctor), Carlos Hernandez (Fellow), Elisabeth Cordero (Nurse), Danuta Pearson (Accounting Clerks Supervisor) Referring Physician: Referral Self Medications: Tetricaine 0.25%/Epinep [...] Received Time Specimen (Source) 10/31/2022 2:34 PM SPLITTER OPERATOR Referral Self GI BRONCHOSCOPY ORDERABLES City/State/ZIP Code Phone Number Performing Address Organization [facility] OTHER RESULTS * (ABNORMAL) COMPREHENSIVE METABOLIC PANEL (10/31/2022 4:26 AM SPLITTER OPERATOR) Pathologist Signature Component Value Ref Test Method Analysis Performed A t Range Time Sodium 139 137 - 10/31/2022 [facility] DEPT PAT H AND 147 6:26 AM LAB MEDICINE MMOL/L SPLITTER OPERATOR Potassium 3.7 3.5 - 10/31/2022 [facility] DEPT PAT H AND 5.1 6:26 AM LAB MEDICINE MMOL/L SPLITTER OPERATOR Chloride 103 98 - 110 10/31/2022 [facility] DEPT PAT H AND MMOL/L 6:26 AM LAB MEDICINE SPLITTER OPERATOR Glucose 85 70 - 100 10/31/2022 [facility] DEPT PAT H AND MG/DL 6:26 AM LAB MEDICINE SPLITTER OPERATOR Blood Urea Nitrogen 21 7 - 25 10/31/2022 [facility] DEPT PATH AND MG/DL 6:26 AM LAB MEDICINE SPLITTER OPERATOR Creatinine 0.84 0.4 - 10/31/2022 [facility] DEPT PAT H AND 1.24 6:26 AM LAB MEDICINE MG/DL SPLITTER OPERATOR Calcium 8.8 8.5 - 10/31/2022 [facility] DEPT PAT H AND 10.6 6:26 AM LAB MEDICINE MG/DL SPLITTER OPERATOR Total Protein 6.6 6.0 - 10/31/2022 [facility] DEPT P ATH AND 8.0 G/DL 6:26 AM LAB MEDICINE SPLITTER OPERATOR Total Bilirubin 0.7 0.3 - 10/31/2022 [facility] DEPT PATH AND 1.2 6:26 AM LAB MEDICINE MG/DL SPLITTER OPERATOR Albumin 3.7 3.5 - 10/31/2022 [facility] DEPT PAT H AND 5.0 G/DL 6:26 AM LAB MEDICINE SPLITTER OPERATOR Alk Phosphatase 92 25 - 110 10/31/2022 [facility] DEPT PATH AND U/L 6:26 AM LAB MEDICINE SPLITTER OPERATOR AST (SGOT) 107 (H) 7 - 40 10/31/2022 [facility] DEPT PAT H AND U/L 6:26 AM LAB MEDICINE SPLITTER OPERATOR CO2 22 21 - 30 10/31/2022 [facility] DEPT PAT H AND MMOL/L 6:26 AM LAB MEDICINE SPLITTER OPERATOR ALT (SGPT) 50 7 - 56 10/31/2022 [facility] DEPT PAT H AND U/L 6:26 AM LAB MEDICINE SPLITTER OPERATOR Anion Gap 14 (H) 3 - 12 10/31/2022 [facility] DEPT PAT H AND 6:26 AM LAB MEDICINE SPLITTER OPERATOR eGFR >60 >60 10/31/2022 [facility] DEPT PAT H AND mL/min 6:26 AM LAB MEDICINE SPLITTER OPERATOR Comment: eGFR calculated using the CKD-EPIcr_R equation Anatomical Location / Laterality Collection Method / Volume Eva ection Time Received Time Specimen (Source) BLOOD / Unknown 10/31/2022 4:26 AM SPLITTER OPERATOR 10/31/20 4:27 AM SPLITTER OPERATOR Sahil Mejia MD LABORATORY ORDERABLES City/State/ZIP Code Phone Number Performing Address [place] [address] [facility] DEPT PATH AND [address] [facility] LAB MEDICINE * (ABNORMAL) CBC AND DIFF (10/31/2022 4:26 AM SPLITTER OPERATOR) Pathologist Signature Component Value Ref Test Method Analysis Performed A t Range Time White Blood Cells 7.5 4.5 - 10/31/2022 [facility] DE PT PATH AND 11.0 6:00 AM LAB MEDICINE K/UL SPLITTER OPERATOR RBC 3.77 (L) 4.4 - 10/31/2022 [facility] DEPT PAT H AND 5.5 M/UL 6:00 AM LAB MEDICINE SPLITTER OPERATOR Hemoglobin 12.8 (L) 13.5 - 10/31/2022 [facility] DEPT PAT H AND 16.5 6:00 AM LAB MEDICINE GM/DL SPLITTER OPERATOR Hematocrit 37.7 (L) 40 - 50 10/31/2022 [facility] DEPT PAT H AND % 6:00 AM LAB MEDICINE SPLITTER OPERATOR MCV 99.8 80 - 100 10/31/2022 [facility] DEPT PAT H AND FL 6:00 AM LAB MEDICINE SPLITTER OPERATOR MCH 33.8 26 - 34 10/31/2022 [facility] DEPT PAT H AND PG 6:00 AM LAB MEDICINE SPLITTER OPERATOR MCHC 33.9 32.0 - 10/31/2022 [facility] DEPT PAT H AND 36.0 6:00 AM LAB MEDICINE G/DL SPLITTER OPERATOR RDW 14.5 11 - 15 10/31/2022 [facility] DEPT PAT H AND % 6:00 AM LAB MEDICINE SPLITTER OPERATOR Platelet Count 157 150 - 10/31/2022 [facility] DEPT PATH AND 400 K/UL 6:00 AM LAB MEDICINE SPLITTER OPERATOR MPV 9.1 7 - 11 10/31/2022 [facility] DEPT PAT H AND FL 6:00 AM LAB MEDICINE SPLITTER OPERATOR Neutrophils 78 (H) 41 - 77 10/31/2022 [facility] DEPT PAT H AND % 6:00 AM LAB MEDICINE SPLITTER OPERATOR Lymphocytes 7 (L) 24 - 44 10/31/2022 [facility] DEPT PAT H AND % 6:00 AM LAB MEDICINE SPLITTER OPERATOR Monocytes 13 (H) 4 - 12 % 10/31/2022 [facility] DEPT PAT H AND 6:00 AM LAB MEDICINE SPLITTER OPERATOR Eosinophils 1 0 - 5 % 10/31/2022 [facility] DEPT PAT H AND 6:00 AM LAB MEDICINE SPLITTER OPERATOR Basophils 1 0 - 2 % 10/31/2022 [facility] DEPT PAT H AND 6:00 AM LAB MEDICINE SPLITTER OPERATOR Absolute Neutrophil 5.91 1.8 - 10/31/2022 [facility] DEPT PATH AND Count 7.0 K/UL 6:00 AM LAB MEDICINE SPLITTER OPERATOR Absolute Lymph Count 0.55 (L) 1.0 - 10/31/2022 [facility] DEPT PATH AND 4.8 K/UL 6:00 AM LAB MEDICINE SPLITTER OPERATOR Absolute Monocyte 1.01 (H) 0 - 0.80 10/31/2022 [facility] DE PT PATH AND Count K/UL 6:00 AM LAB MEDICINE SPLITTER OPERATOR Absolute Eosinophil 0.04 0 - 0.45 10/31/2022 [facility] DEPT PATH AND Count K/UL 6:00 AM LAB MEDICINE SPLITTER OPERATOR Absolute Basophil 0.04 0 - 0.20 10/31/2022 [facility] DE PT PATH AND Count K/UL 6:00 AM LAB MEDICINE SPLITTER OPERATOR Anatomical Location / Laterality Collection Method / Volume Eva ection Time Received Time Specimen (Source) BLOOD / Unknown 10/31/2022 4:26 AM SPLITTER OPERATOR 10/31/20 4:27 AM SPLITTER OPERATOR Chary Smith MD LABORATORY ORDERABLES City/State/ZIP Code Phone Number Performing Address [place] [address] [facility] DEPT PATH AND [address] [facility]. LAB MEDICINE * NM PET SCAN TORSO (SKULL-THIGHS) (10/30/2022 2:16 PM SPLITTER OPERATOR) Modality Anatomical Region Laterality Nuclear Medicine BODY/CAP Anatomical Location / Laterality Collection Method / Volume Eva ection Time Received Time Specimen (Source) 10/30/2022 5:37 PM SPLITTER OPERATOR Impressions 10/31/2022 9:33 AM SPLITTER OPERATOR Limited examination due to diffuse muscular [...] 10/30/2022 5:37 PM. Narrative 10/31/2022 9:33 AM SPLITTER OPERATOR NM PET SCAN TORSO (SKULL-THIGHS) Radiopharmaceutical: 11.9 mCi F-18 Fluorodeoxyglucose (FDG) IV. Clinical Indication: Right upper lobe lung mass. Technique: PET imaging was performed from the skull to thighs 113 minutes after tracer administration. Low dose non-contrast CT imaging was performed for attenuation correction and localization purposes. Current mean hepatic SUV (reported for quality checker purposes) is 1.4. Blood glucose level [...] Current mean hepatic SUV (reported for quality checker purposes) is 1.4. Blood glucose level [...] on 10/30/2022 5:37 PM. Rafal Amaya MD [facility] MED ORDERABLES * (ABNORMAL) BASIC METABOLIC PANEL (10/30/2022 4:21 AM SPLITTER OPERATOR) Pathologist Signature Component Value Ref Test Method Analysis Performed A t Range Time Sodium 141 137 - 10/30/2022 [facility] DEPT PAT H AND 147 6:07 AM LAB MEDICINE MMOL/L SPLITTER OPERATOR Potassium 4.2 3.5 - 10/30/2022 [facility] DEPT PAT H AND 5.1 6:07 AM LAB MEDICINE MMOL/L SPLITTER OPERATOR Chloride 110 98 - 110 10/30/2022 [facility] DEPT PAT H AND MMOL/L 6:07 AM LAB MEDICINE SPLITTER OPERATOR CO2 16 (L) 21 - 30 10/30/2022 [facility] DEPT PAT H AND MMOL/L 6:07 AM LAB MEDICINE SPLITTER OPERATOR Anion Gap 15 (H) 3 - 12 10/30/2022 [facility] DEPT PAT H AND 6:07 AM LAB MEDICINE SPLITTER OPERATOR Glucose 67 (L) 70 - 100 10/30/2022 [facility] DEPT PAT H AND MG/DL 6:07 AM LAB MEDICINE SPLITTER OPERATOR Blood Urea Nitrogen 26 (H) 7 - 25 10/30/2022 [facility] DEPT PATH AND MG/DL 6:07 AM LAB MEDICINE SPLITTER OPERATOR Creatinine 0.97 0.4 - 10/30/2022 [facility] DEPT PAT H AND 1.24 6:07 AM LAB MEDICINE MG/DL SPLITTER OPERATOR Calcium 8.5 8.5 - 10/30/2022 [facility] DEPT PAT H AND 10.6 6:07 AM LAB MEDICINE MG/DL SPLITTER OPERATOR eGFR >60 >60 10/30/2022 [facility] DEPT PAT H AND mL/min 6:07 AM LAB MEDICINE SPLITTER OPERATOR Comment: eGFR calculated using the CKD-EPIcr_R equation Anatomical Location / Laterality Collection Method / Volume Eva ection Time Received Time Specimen (Source) BLOOD / Unknown 10/30/2022 4:21 AM SPLITTER OPERATOR 10/30/20 4:22 AM SPLITTER OPERATOR Chary Smith MD LABORATORY ORDERABLES City/State/ZIP Code Phone Number Performing Address [place] [address] [facility] DEPT PATH AND [address] [facility] LAB MEDICINE * (ABNORMAL) CBC AND DIFF (10/30/2022 4:21 AM SPLITTER OPERATOR) Pathologist Signature Component Value Ref Test Method Analysis Performed A t Range Time White Blood Cells 7.5 4.5 - 10/30/2022 [facility] DE PT PATH AND 11.0 5:42 AM LAB MEDICINE K/UL SPLITTER OPERATOR RBC 3.71 (L) 4.4 - 10/30/2022 [facility] DEPT PAT H AND 5.5 M/UL 5:42 AM LAB MEDICINE SPLITTER OPERATOR Hemoglobin 12.6 (L) 13.5 - 10/30/2022 [facility] DEPT PAT H AND 16.5 5:42 AM LAB MEDICINE GM/DL SPLITTER OPERATOR Hematocrit 38.0 (L) 40 - 50 10/30/2022 [facility] DE[facility] PAT H AND % 5:42 AM LAB MEDICINE SPLITTER OPERATOR MCV 102.3 (H) 80 - 100 10/30/2022 [facility] PAT H AND FL 5:42 AM LAB MEDICINE SPLITTER OPERATOR MCH 34.0 26 - 34 10/30/2022 [facility] PAT H AND PG 5:42 AM LAB MEDICINE SPLITTER OPERATOR MCHC 33.2 32.0 - 10/30/2022 [facility] DEPT PAT H AND 36.0 5:42 AM LAB MEDICINE G/DL SPLITTER OPERATOR RDW 14.8 11 - 15 10/30/2022 [facility] DEPT PAT H AND % 5:42 AM LAB MEDICINE SPLITTER OPERATOR Platelet Count 138 (L) 150 - 10/30/2022 [facility] DEPT PATH AND 400 K/UL 5:42 AM LAB MEDICINE SPLITTER OPERATOR MPV 9.6 7 - 11 10/30/2022 [facility] PAT H AND FL 5:42 AM LAB MEDICINE SPLITTER OPERATOR Neutrophils 85 (H) 41 - 77 10/30/2022 [facility] DEPT PAT H AND % 5:42 AM LAB MEDICINE SPLITTER OPERATOR Lymphocytes 5 (L) 24 - 44 10/30/2022 [facility] DEPT PAT H AND % 5:42 AM LAB MEDICINE SPLITTER OPERATOR Monocytes 7 4 - 12 % 10/30/2022 [facility] DEPT PAT H AND 5:42 AM LAB MEDICINE SPLITTER OPERATOR Eosinophils 2 0 - 5 % 10/30/2022 [facility] DEPT PAT H AND 5:42 AM LAB MEDICINE SPLITTER OPERATOR Basophils 1 0 - 2 % 10/30/2022 [facility] DEPT PAT H AND 5:42 AM LAB MEDICINE SPLITTER OPERATOR Absolute Neutrophil 6.40 1.8 - 10/30/2022 [facility] DEPT PATH AND Count 7.0 K/UL 5:42 AM LAB MEDICINE SPLITTER OPERATOR Absolute Lymph Count 0.40 (L) 1.0 - 10/30/2022 [facility] DEPT PATH AND 4.8 K/UL 5:42 AM LAB MEDICINE SPLITTER OPERATOR Absolute Monocyte 0.60 0 - 0.80 10/30/2022 [facility] DE PT PATH AND Count K/UL 5:42 AM LAB MEDICINE SPLITTER OPERATOR Absolute Eosinophil 0.10 0 - 0.45 10/30/2022 [facility] DEPT PATH AND Count K/UL 5:42 AM LAB MEDICINE SPLITTER OPERATOR Absolute Basophil 0.10 0 - 0.20 10/30/2022 [facility] DE PT PATH AND Count K/UL 5:42 AM LAB MEDICINE SPLITTER OPERATOR Anatomical Location / Laterality Collection Method / Volume Eva ection Time Received Time Specimen (Source) BLOOD / Unknown 10/30/2022 4:21 AM SPLITTER OPERATOR 10/30/20 4:22 AM SPLITTER OPERATOR Chary Smith MD LABORATORY ORDERABLES City/State/ZIP Code Phone Number Performing Address [place] [address] [facility] DEPT PATH AND [address] [facility]. LAB MEDICINE * ANSELMO W/O CONTRAST (10/29/2022 3:47 PM SPLITTER OPERATOR) Pathologist Signature Component Value Ref Test [...] Time Specimen (Source) Narrative 10/29/2022 5:34 PM SPLITTER OPERATOR ANSELMO: 1. There was no thrombus [...] (ABNORMAL) BASIC METABOLIC PANEL (10/29/2022 3:57 AM SPLITTER OPERATOR) Pathologist Signature Component Value Ref Test Method Analysis Performed A t Range Time Sodium 141 137 - 10/29/2022 [facility] DEPT PAT H AND 147 5:15 AM LAB MEDICINE MMOL/L SPLITTER OPERATOR Potassium 3.9 3.5 - 10/29/2022 [facility] DEPT PAT H AND 5.1 5:15 AM LAB MEDICINE MMOL/L SPLITTER OPERATOR Chloride 106 98 - 110 10/29/2022 [facility] DEPT PAT H AND MMOL/L 5:15 AM LAB MEDICINE SPLITTER OPERATOR CO2 24 21 - 30 10/29/2022 [facility] DEPT PAT H AND MMOL/L 5:15 AM LAB MEDICINE SPLITTER OPERATOR Anion Gap 11 3 - 12 10/29/2022 [facility] DEPT PAT H AND 5:15 AM LAB MEDICINE SPLITTER OPERATOR Glucose 90 70 - 100 10/29/2022 [facility] DEPT PAT H AND MG/DL 5:15 AM LAB MEDICINE SPLITTER OPERATOR Blood Urea Nitrogen 26 (H) 7 - 25 10/29/2022 [facility] DEPT PATH AND MG/DL 5:15 AM LAB MEDICINE SPLITTER OPERATOR Creatinine 1.04 0.4 - 10/29/2022 [facility] DEPT PAT H AND 1.24 5:15 AM LAB MEDICINE MG/DL SPLITTER OPERATOR Calcium 8.7 8.5 - 10/29/2022 [facility] DEPT PAT H AND 10.6 5:15 AM LAB MEDICINE MG/DL SPLITTER OPERATOR eGFR >60 >60 10/29/2022 [facility] DEPT PAT H AND mL/min 5:15 AM LAB MEDICINE SPLITTER OPERATOR Comment: eGFR calculated using the CKD-EPIcr_R equation Anatomical Location / Laterality Collection Method / Volume Eva ection Time Received Time Specimen (Source) BLOOD / Unknown 10/29/2022 3:57 AM SPLITTER OPERATOR 10/29/20 3:58 AM SPLITTER OPERATOR Chary Smith MD LABORATORY ORDERABLES City/State/ZIP Code Phone Number Performing Address [place] [address] [facility] DEPT PATH AND [address] [facility] LAB MEDICINE * (ABNORMAL) CBC AND DIFF (10/29/2022 3:57 AM SPLITTER OPERATOR) Pathologist Signature Component Value Ref Test Method Analysis Performed A t Range Time White Blood Cells 4.5 4.5 - 10/29/2022 [facility] PT PATH AND 11.0 4:51 AM LAB MEDICINE K/UL SPLITTER OPERATOR RBC 3.31 (L) 4.4 - 10/29/2022 [facility] DEPT PAT H AND 5.5 M/UL 4:51 AM LAB MEDICINE SPLITTER OPERATOR Hemoglobin 11.3 (L) 13.5 - 10/29/2022 [facility] DEPT PAT H AND 16.5 4:51 AM LAB MEDICINE GM/DL SPLITTER OPERATOR Hematocrit 33.2 (L) 40 - 50 10/29/2022 [facility] DEPT PAT H AND % 4:51 AM LAB MEDICINE SPLITTER OPERATOR MCV 100.3 (H) 80 - 100 10/29/2022 [facility] DEPT PAT H AND FL 4:51 AM LAB MEDICINE SPLITTER OPERATOR MCH 34.1 (H) 26 - 34 10/29/2022 [facility] DE[facility] PAT H AND PG 4:51 AM LAB MEDICINE SPLITTER OPERATOR MCHC 34.0 32.0 - 10/29/2022 [facility] DEPT PAT H AND 36.0 4:51 AM LAB MEDICINE G/DL SPLITTER OPERATOR RDW 14.4 11 - 15 10/29/2022 [facility] DEPT PAT H AND % 4:51 AM LAB MEDICINE SPLITTER OPERATOR Platelet Count 107 (L) 150 - 10/29/2022 [facility] DEPT PATH AND 400 K/UL 4:51 AM LAB MEDICINE SPLITTER OPERATOR MPV 9.5 7 - 11 10/29/2022 [facility] DEPT PAT H AND FL 4:51 AM LAB MEDICINE SPLITTER OPERATOR Neutrophils 71 41 - 77 10/29/2022 [facility] DEPT PAT H AND % 4:51 AM LAB MEDICINE SPLITTER OPERATOR Lymphocytes 12 (L) 24 - 44 10/29/2022 [facility] DEPT PAT H AND % 4:51 AM LAB MEDICINE SPLITTER OPERATOR Monocytes 16 (H) 4 - 12 % 10/29/2022 [facility] DEPT PAT H AND 4:51 AM LAB MEDICINE SPLITTER OPERATOR Eosinophils 0 0 - 5 % 10/29/2022 [facility] DEPT PAT H AND 4:51 AM LAB MEDICINE SPLITTER OPERATOR Basophils 1 0 - 2 % 10/29/2022 [facility] DEPT PAT H AND 4:51 AM LAB MEDICINE SPLITTER OPERATOR Absolute Neutrophil 3.17 1.8 - 10/29/2022 [facility] DEPT PATH AND Count 7.0 K/UL 4:51 AM LAB MEDICINE SPLITTER OPERATOR Absolute Lymph Count 0.56 (L) 1.0 - 10/29/2022 [facility] DEPT PATH AND 4.8 K/UL 4:51 AM LAB MEDICINE SPLITTER OPERATOR Absolute Monocyte 0.74 0 - 0.80 10/29/2022 [facility] DE PT PATH AND Count K/UL 4:51 AM LAB MEDICINE SPLITTER OPERATOR Absolute Eosinophil 0.02 0 - 0.45 10/29/2022 [facility] DEPT PATH AND Count K/UL 4:51 AM LAB MEDICINE SPLITTER OPERATOR Absolute Basophil 0.02 0 - 0.20 10/29/2022 [facility] DE PT PATH AND Count K/UL 4:51 AM LAB MEDICINE SPLITTER OPERATOR Anatomical Location / Laterality Collection Method / Volume Eva ection Time Received Time Specimen (Source) BLOOD / Unknown 10/29/2022 3:57 AM SPLITTER OPERATOR 10/29/20 3:58 AM SPLITTER OPERATOR Chary Smith MD LABORATORY ORDERABLES City/State/ZIP Code Phone Number Performing Address [place] [address] [facility] DEPT PATH AND [address] [facility] LAB MEDICINE * IR CEREBRAL ANEURYSM EMBOLIZATION (10/28/2022 9:46 AM SPLITTER OPERATOR) Modality Anatomical Region Laterality X-Ray Angiography Anatomical Location / Laterality Collection Method / Volume Eva ection Time Received Time Specimen (Source) 10/29/2022 7:22 PM SPLITTER OPERATOR Narrative 10/29/2022 7:37 PM SPLITTER OPERATOR Date of Service: 10/28/2022 Surgeon: Portillo March MD Transit Bus Operator: None Preoperative Diagnosis: 1. 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 All bubbles [...] of heparin were given IV. A 5 British Lundy 2 select diagnostic catheter was introduced. [...] catheter. This allowed advancement of the 5 British diagnostic catheter into the distal external carotid [...] of Service: 10/28/2022 Surgeon: Portillo March MD Transit Bus Operator: None Preoperative Diagnosis: 1. Right acute on [...] was used to place a Terumo 6 British slender sheath in the vessel. All bubbles [...] of heparin were given IV. A 5 British Lundy 2 select diagnostic catheter was introduced. [...] catheter. This allowed advancement of the 5 British diagnostic catheter into the distal external carotid [...] 10/29/2022 7:22 PM. Isamar Newell IR ORDERABLES BUSINESS SYSTEM CONSULTANT-TUBE TESTER * TELEMETRY STRIPS-SCAN (10/28/2022 12:00 AM SPLITTER OPERATOR) Narrative 10/28/2022 12:00 AM SPLITTER OPERATOR Ordered by an unspecified provider. Scanned Document PROCEDURE DUMMY ORDERS * TELEMETRY STRIPS-SCAN (10/28/2022 12:00 AM SPLITTER OPERATOR) Narrative 10/28/2022 12:00 AM SPLITTER OPERATOR Ordered by an unspecified provider. Scanned Document PROCEDURE DUMMY ORDERS * TELEMETRY STRIPS-SCAN (10/28/2022 12:00 AM SPLITTER OPERATOR) Narrative 10/28/2022 12:00 AM SPLITTER OPERATOR Ordered by an unspecified provider. Scanned Document PROCEDURE DUMMY ORDERS * TELEMETRY STRIPS-SCAN (10/28/2022 12:00 AM SPLITTER OPERATOR) Narrative 10/28/2022 12:00 AM SPLITTER OPERATOR Ordered by an unspecified provider. Scanned Document PROCEDURE DUMMY ORDERS * TELEMETRY STRIPS-SCAN (10/28/2022 12:00 AM SPLITTER OPERATOR) Narrative 10/28/2022 12:00 AM SPLITTER OPERATOR Ordered by an unspecified provider. Scanned Document PROCEDURE DUMMY ORDERS * TELEMETRY STRIPS-SCAN (10/28/2022 12:00 AM SPLITTER OPERATOR) Narrative 10/28/2022 12:00 AM SPLITTER OPERATOR Ordered by an unspecified provider. Scanned Document PROCEDURE DUMMY ORDERS * TELEMETRY STRIPS-SCAN (10/28/2022 12:00 AM SPLITTER OPERATOR) Narrative 10/28/2022 12:00 AM SPLITTER OPERATOR Ordered by an unspecified provider. Scanned Document PROCEDURE DUMMY ORDERS * TELEMETRY STRIPS-SCAN (10/28/2022 12:00 AM SPLITTER OPERATOR) Narrative 10/28/2022 12:00 AM SPLITTER OPERATOR Ordered by an unspecified provider. Scanned Document PROCEDURE DUMMY ORDERS * TELEMETRY STRIPS-SCAN (10/28/2022 12:00 AM SPLITTER OPERATOR) Narrative 10/28/2022 12:00 AM SPLITTER OPERATOR Ordered by an unspecified provider. Scanned Document PROCEDURE DUMMY ORDERS * TELEMETRY STRIPS-SCAN (10/28/2022 12:00 AM SPLITTER OPERATOR) Narrative 10/28/2022 12:00 AM SPLITTER OPERATOR Ordered by an unspecified provider. Scanned Document PROCEDURE DUMMY ORDERS * TELEMETRY STRIPS-SCAN (10/28/2022 12:00 AM SPLITTER OPERATOR) Narrative 10/28/2022 12:00 AM SPLITTER OPERATOR Ordered by an unspecified provider. Scanned Document PROCEDURE DUMMY ORDERS * TELEMETRY STRIPS-SCAN (10/28/2022 12:00 AM SPLITTER OPERATOR) Narrative 10/28/2022 12:00 AM SPLITTER OPERATOR Ordered by an unspecified provider. Scanned Document PROCEDURE DUMMY ORDERS * TELEMETRY STRIPS-SCAN (10/28/2022 12:00 AM SPLITTER OPERATOR) Narrative 10/28/2022 12:00 AM SPLITTER OPERATOR Ordered by an unspecified provider. Scanned Document PROCEDURE DUMMY ORDERS * TELEMETRY STRIPS-SCAN (10/28/2022 12:00 AM SPLITTER OPERATOR) Narrative 10/28/2022 12:00 AM SPLITTER OPERATOR Ordered by an unspecified provider. Scanned Document PROCEDURE DUMMY ORDERS * TELEMETRY STRIPS-SCAN (10/28/2022 12:00 AM SPLITTER OPERATOR) Narrative 10/28/2022 12:00 AM SPLITTER OPERATOR Ordered by an unspecified provider. Scanned Document PROCEDURE DUMMY ORDERS * TELEMETRY STRIPS-SCAN (10/28/2022 12:00 AM SPLITTER OPERATOR) Narrative 10/28/2022 12:00 AM SPLITTER OPERATOR Ordered by an unspecified provider. Scanned Document PROCEDURE DUMMY ORDERS * TELEMETRY STRIPS-SCAN (10/28/2022 12:00 AM SPLITTER OPERATOR) Narrative 10/28/2022 12:00 AM SPLITTER OPERATOR Ordered by an unspecified provider. Scanned Document PROCEDURE DUMMY ORDERS * TELEMETRY STRIPS-SCAN (10/28/2022 12:00 AM SPLITTER OPERATOR) Narrative 10/28/2022 12:00 AM SPLITTER OPERATOR Ordered by an unspecified provider. Scanned Document PROCEDURE DUMMY ORDERS * TELEMETRY STRIPS-SCAN (10/28/2022 12:00 AM SPLITTER OPERATOR) Narrative 10/28/2022 12:00 AM SPLITTER OPERATOR Ordered by an unspecified provider. Scanned Document PROCEDURE DUMMY ORDERS * TELEMETRY STRIPS-SCAN (10/28/2022 12:00 AM SPLITTER OPERATOR) Narrative 10/28/2022 12:00 AM SPLITTER OPERATOR Ordered by an unspecified provider. Scanned Document PROCEDURE DUMMY ORDERS * TELEMETRY STRIPS-SCAN (10/28/2022 12:00 AM SPLITTER OPERATOR) Narrative 10/28/2022 12:00 AM SPLITTER OPERATOR Ordered by an unspecified provider. Scanned Document PROCEDURE DUMMY ORDERS * TELEMETRY STRIPS-SCAN (10/28/2022 12:00 AM SPLITTER OPERATOR) Narrative 10/28/2022 12:00 AM SPLITTER OPERATOR Ordered by an unspecified provider. Scanned Document PROCEDURE DUMMY ORDERS * TELEMETRY STRIPS-SCAN (10/28/2022 12:00 AM SPLITTER OPERATOR) Narrative 10/28/2022 12:00 AM SPLITTER OPERATOR Ordered by an unspecified provider. Scanned Document PROCEDURE DUMMY ORDERS * TELEMETRY STRIPS-SCAN (10/28/2022 12:00 AM SPLITTER OPERATOR) Narrative 10/28/2022 12:00 AM SPLITTER OPERATOR Ordered by an unspecified provider. Scanned Document PROCEDURE DUMMY ORDERS * (ABNORMAL) CBC (10/27/2022 8:55 PM SPLITTER OPERATOR) Pathologist Signature Component Value Ref Test Method Analysis Performed A t Range Time White Blood Cells 5.9 4.5 - 10/27/2022 [facility] DE PT PATH AND 11.0 9:28 PM LAB MEDICINE K/UL SPLITTER OPERATOR RBC 3.76 (L) 4.4 - 10/27/2022 [facility] DEPT PAT H AND 5.5 M/UL 9:28 PM LAB MEDICINE SPLITTER OPERATOR Hemoglobin 12.7 (L) 13.5 - 10/27/2022 [facility] DEPT PAT H AND 16.5 9:28 PM LAB MEDICINE GM/DL SPLITTER OPERATOR Hematocrit 37.0 (L) 40 - 50 10/27/2022 [facility] DEPT PAT H AND % 9:28 PM LAB MEDICINE SPLITTER OPERATOR MCV 98.5 80 - 100 10/27/2022 [facility] DEPT PAT H AND FL 9:28 PM LAB MEDICINE SPLITTER OPERATOR MCH 33.8 26 - 34 10/27/2022 [facility] DEPT PAT H AND PG 9:28 PM LAB MEDICINE SPLITTER OPERATOR MCHC 34.3 32.0 - 10/27/2022 [facility] DEPT PAT H AND 36.0 9:28 PM LAB MEDICINE G/DL SPLITTER OPERATOR RDW 14.4 11 - 15 10/27/2022 [facility] DEPT PAT H AND % 9:28 PM LAB MEDICINE SPLITTER OPERATOR Platelet Count 100 (L) 150 - 10/27/2022 [facility] DEPT PATH AND 400 K/UL 9:28 PM LAB MEDICINE SPLITTER OPERATOR MPV 9.1 7 - 11 10/27/2022 [facility] DEPT PAT H AND FL 9:28 PM LAB MEDICINE SPLITTER OPERATOR Anatomical Location / Laterality Collection Method / Volume Eva ection Time Received Time Specimen (Source) 10/27/2022 8:55 PM SPLITTER OPERATOR 10/27/20 9:05 PM SPLITTER OPERATOR Nehemias Blanchard MD LABORATORY ORDERABLES City/State/ZIP Code Phone Number Performing Address [place] [address] [facility] DEPT PATH AND [address] [facility] LAB MEDICINE * (ABNORMAL) BASIC METABOLIC PANEL (10/27/2022 8:55 PM SPLITTER OPERATOR) Pathologist Signature Component Value Ref Test Method Analysis Performed A t Range Time Sodium 139 137 - 10/27/2022 [facility] DEPT PAT H AND 147 9:51 PM LAB MEDICINE MMOL/L SPLITTER OPERATOR Potassium 3.9 3.5 - 10/27/2022 [facility] DEPT PAT H AND 5.1 9:51 PM LAB MEDICINE MMOL/L SPLITTER OPERATOR Chloride 102 98 - 110 10/27/2022 [facility] DEPT PAT H AND MMOL/L 9:51 PM LAB MEDICINE SPLITTER OPERATOR CO2 26 21 - 30 10/27/2022 [facility] DEPT PAT H AND MMOL/L 9:51 PM LAB MEDICINE SPLITTER OPERATOR Anion Gap 11 3 - 12 10/27/2022 [facility] DEPT PAT H AND 9:51 PM LAB MEDICINE SPLITTER OPERATOR Glucose 115 (H) 70 - 100 10/27/2022 [facility] DEPT PAT H AND MG/DL 9:51 PM LAB MEDICINE SPLITTER OPERATOR Blood Urea Nitrogen 26 (H) 7 - 25 10/27/2022 [facility] DEPT PATH AND MG/DL 9:51 PM LAB MEDICINE SPLITTER OPERATOR Creatinine 1.11 0.4 - 10/27/2022 [facility] DEPT PAT H AND 1.24 9:51 PM LAB MEDICINE MG/DL SPLITTER OPERATOR Calcium 8.7 8.5 - 10/27/2022 [facility] DEPT PAT H AND 10.6 9:51 PM LAB MEDICINE MG/DL SPLITTER OPERATOR eGFR >60 >60 10/27/2022 [facility] DEPT PAT H AND mL/min 9:51 PM LAB MEDICINE SPLITTER OPERATOR Comment: eGFR calculated using the CKD-EPIcr_R equation Anatomical Location / Laterality Collection Method / Volume Eva ection Time Received Time Specimen (Source) 10/27/2022 8:55 PM SPLITTER OPERATOR 10/27/20 22 9:05 PM SPLITTER OPERATOR Nehemias Blanchard MD LABORATORY ORDERABLES City/State/ZIP Code Phone Number Performing Address [place] [address] [facility] DEPT PATH AND [address] [place] . LAB MEDICINE * (ABNORMAL) CBC (10/27/2022 7:58 PM SPLITTER OPERATOR) Pathologist Signature Component Value Ref Test Method Analysis Performed A t Range Time White Blood Cells 5.8 4.5 - 10/27/2022 [facility] DE PT PATH AND 11.0 9:03 PM LAB MEDICINE K/UL SPLITTER OPERATOR RBC 3.81 (L) 4.4 - 10/27/2022 [facility] DEPT PAT H AND 5.5 M/UL 9:03 PM LAB MEDICINE SPLITTER OPERATOR Hemoglobin 12.8 (L) 13.5 - 10/27/2022 [facility] DEPT PAT H AND 16.5 9:03 PM LAB MEDICINE GM/DL SPLITTER OPERATOR Hematocrit 38.1 (L) 40 - 50 10/27/2022 [facility] DEPT PAT H AND % 9:03 PM LAB MEDICINE SPLITTER OPERATOR MCV 100.0 80 - 100 10/27/2022 [facility] DEPT PAT H AND FL 9:03 PM LAB MEDICINE SPLITTER OPERATOR MCH 33.7 26 - 34 10/27/2022 [facility] DEPT PAT H AND PG 9:03 PM LAB MEDICINE SPLITTER OPERATOR MCHC 33.7 32.0 - 10/27/2022 [facility] DEPT PAT H AND 36.0 9:03 PM LAB MEDICINE G/DL SPLITTER OPERATOR RDW 14.3 11 - 15 10/27/2022 [facility] DEPT PAT H AND % 9:03 PM LAB MEDICINE SPLITTER OPERATOR Platelet Count 97 (L) 150 - 10/27/2022 [facility] DEPT PATH AND 400 K/UL 9:03 PM LAB MEDICINE SPLITTER OPERATOR MPV 9.3 7 - 11 10/27/2022 [facility] DEPT PAT H AND FL 9:03 PM LAB MEDICINE SPLITTER OPERATOR Anatomical Location / Laterality Collection Method / Volume Eva ection Time Received Time Specimen (Source) BLOOD / Unknown 10/27/2022 7:58 PM SPLITTER OPERATOR 10/27/20 8:50 PM SPLITTER OPERATOR Portillo March MD LABORATORY ORDERABLES City/State/ZIP Code Phone Number Performing Address [place] [address] [facility] DEPT PATH AND [address] [facility] LAB MEDICINE * CT HEAD WO CONTRAST (10/27/2022 7:46 PM SPLITTER OPERATOR) Modality Anatomical Region Laterality Computed Tomography Head Anatomical Location / Laterality Collection Method / Volume Eva ection Time Received Time Specimen (Source) 10/27/2022 7:38 PM SPLITTER OPERATOR Impressions 10/27/2022 8:05 PM SPLITTER OPERATOR 1. No acute intracranial hemorrhage. 2. 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 Narrative 10/27/2022 8:05 PM SPLITTER OPERATOR EXAM: CT HEAD HISTORY: Decreased consciousness. Stroke activation. TECHNIQUE: Multiple contiguous axial images were obtained of the brain without intravenous contrast. COMPARISON: CT and MRI head 10/25/2022. 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 on 10/27/2022 8:05 PM. Dictated by Fernando Luong M.D. on 10/27/2022 7:38 PM. Portillo March MD CT ORDERABLES * (ABNORMAL) CBC AND DIFF (10/27/2022 4:16 AM SPLITTER OPERATOR) Pathologist Signature Component Value Ref Test Method Analysis Performed A t Range Time White Blood Cells 6.3 4.5 - 10/27/2022 [facility] DE PT PATH AND 11.0 4:53 AM LAB MEDICINE K/UL SPLITTER OPERATOR RBC 3.52 (L) 4.4 - 10/27/2022 [facility] DEPT PAT H AND 5.5 M/UL 4:53 AM LAB MEDICINE SPLITTER OPERATOR Hemoglobin 11.9 (L) 13.5 - 10/27/2022 [facility] DEPT PAT H AND 16.5 4:53 AM LAB MEDICINE GM/DL SPLITTER OPERATOR Hematocrit 35.1 (L) 40 - 50 10/27/2022 [facility] DEPT PAT H AND % 4:53 AM LAB MEDICINE SPLITTER OPERATOR MCV 99.7 80 - 100 10/27/2022 [facility] DEPT PAT H AND FL 4:53 AM LAB MEDICINE SPLITTER OPERATOR MCH 33.8 26 - 34 10/27/2022 [facility] DEPT PAT H AND PG 4:53 AM LAB MEDICINE SPLITTER OPERATOR MCHC 33.9 32.0 - 10/27/2022 [facility] DEPT PAT H AND 36.0 4:53 AM LAB MEDICINE G/DL SPLITTER OPERATOR RDW 14.2 11 - 15 10/27/2022 [facility] DEPT PAT H AND % 4:53 AM LAB MEDICINE SPLITTER OPERATOR Platelet Count 92 (L) 150 - 10/27/2022 [facility] DEPT PATH AND 400 K/UL 4:53 AM LAB MEDICINE SPLITTER OPERATOR MPV 9.0 7 - 11 10/27/2022 [facility] DEPT PAT H AND FL 4:53 AM LAB MEDICINE SPLITTER OPERATOR Neutrophils 77 41 - 77 10/27/2022 [facility] DEPT PAT H AND % 4:53 AM LAB MEDICINE SPLITTER OPERATOR Lymphocytes 6 (L) 24 - 44 10/27/2022 [facility] DEPT PAT H AND % 4:53 AM LAB MEDICINE SPLITTER OPERATOR Monocytes 15 (H) 4 - 12 % 10/27/2022 [facility] DEPT PAT H AND 4:53 AM LAB MEDICINE SPLITTER OPERATOR Eosinophils 1 0 - 5 % 10/27/2022 [facility] DEPT PAT H AND 4:53 AM LAB MEDICINE SPLITTER OPERATOR Basophils 1 0 - 2 % 10/27/2022 [facility] DEPT PAT H AND 4:53 AM LAB MEDICINE SPLITTER OPERATOR Absolute Neutrophil 4.87 1.8 - 10/27/2022 [facility] DEPT PATH AND Count 7.0 K/UL 4:53 AM LAB MEDICINE SPLITTER OPERATOR Absolute Lymph Count 0.39 (L) 1.0 - 10/27/2022 [facility] DEPT PATH AND 4.8 K/UL 4:53 AM LAB MEDICINE SPLITTER OPERATOR Absolute Monocyte 0.97 (H) 0 - 0.80 10/27/2022 [facility] DE PT PATH AND Count K/UL 4:53 AM LAB MEDICINE SPLITTER OPERATOR Absolute Eosinophil 0.05 0 - 0.45 10/27/2022 [facility] DEPT PATH AND Count K/UL 4:53 AM LAB MEDICINE SPLITTER OPERATOR Absolute Basophil 0.04 0 - 0.20 10/27/2022 [facility] DE PT PATH AND Count K/UL 4:53 AM LAB MEDICINE SPLITTER OPERATOR Anatomical Location / Laterality Collection Method / Volume Eva ection Time Received Time Specimen (Source) BLOOD / Unknown 10/27/2022 4:16 AM SPLITTER OPERATOR 10/27/20 4:17 AM SPLITTER OPERATOR Portillo March MD LABORATORY ORDERABLES City/State/ZIP Code Phone Number Performing Address [place] [address] [facility] DEPT PATH AND [address] [facility] LAB MEDICINE * BASIC METABOLIC PANEL (10/27/2022 4:16 AM SPLITTER OPERATOR) Pathologist Signature Component Value Ref Test Method Analysis Performed A t Range Time Sodium 140 137 - 10/27/2022 [facility] DEPT PAT H AND 147 5:17 AM LAB MEDICINE MMOL/L SPLITTER OPERATOR Potassium 3.8 3.5 - 10/27/2022 [facility] DEPT PAT H AND 5.1 5:17 AM LAB MEDICINE MMOL/L SPLITTER OPERATOR Chloride 106 98 - 110 10/27/2022 [facility] DEPT PAT H AND MMOL/L 5:17 AM LAB MEDICINE SPLITTER OPERATOR CO2 24 21 - 30 10/27/2022 [facility] DEPT PAT H AND MMOL/L 5:17 AM LAB MEDICINE SPLITTER OPERATOR Anion Gap 10 3 - 12 10/27/2022 [facility] DEPT PAT H AND 5:17 AM LAB MEDICINE SPLITTER OPERATOR Glucose 96 70 - 100 10/27/2022 [facility] DEPT PAT H AND MG/DL 5:17 AM LAB MEDICINE SPLITTER OPERATOR Blood Urea Nitrogen 18 7 - 25 10/27/2022 [facility] DEPT PATH AND MG/DL 5:17 AM LAB MEDICINE SPLITTER OPERATOR Creatinine 0.97 0.4 - 10/27/2022 [facility] DEPT PAT H AND 1.24 5:17 AM LAB MEDICINE MG/DL SPLITTER OPERATOR Calcium 8.7 8.5 - 10/27/2022 [facility] DEPT PAT H AND 10.6 5:17 AM LAB MEDICINE MG/DL SPLITTER OPERATOR eGFR >60 >60 10/27/2022 [facility] DEPT PAT H AND mL/min 5:17 AM LAB MEDICINE SPLITTER OPERATOR Comment: eGFR calculated using the CKD-EPIcr_R equation Anatomical Location / Laterality Collection Method / Volume Eva ection Time Received Time Specimen (Source) BLOOD / Unknown 10/27/2022 4:16 AM SPLITTER OPERATOR 10/27/20 22 4:17 AM SPLITTER OPERATOR Portillo March MD LABORATORY ORDERABLES City/State/ZIP Code Phone Number Performing Address [place] [address] [facility] DEPT PATH AND [address] [facility] LAB MEDICINE * (ABNORMAL) CBC AND DIFF (10/26/2022 9:59 AM SPLITTER OPERATOR) Pathologist Signature Component Value Ref Test Method Analysis Performed A t Range Time White Blood Cells 7.4 4.5 - 10/26/2022 [facility] DE PT PATH AND 11.0 10:41 AM LAB MEDICINE K/UL SPLITTER OPERATOR RBC 3.50 (L) 4.4 - 10/26/2022 [facility] DEPT PAT H AND 5.5 M/UL 10:41 AM LAB MEDICINE SPLITTER OPERATOR Hemoglobin 11.7 (L) 13.5 - 10/26/2022 [facility] DEPT PAT H AND 16.5 10:41 AM LAB MEDICINE GM/DL SPLITTER OPERATOR Hematocrit 34.9 (L) 40 - 50 10/26/2022 [facility] DEPT PAT H AND % 10:41 AM LAB MEDICINE SPLITTER OPERATOR MCV 99.7 80 - 100 10/26/2022 [facility] DEPT PAT H AND FL 10:41 AM LAB MEDICINE SPLITTER OPERATOR MCH 33.5 26 - 34 10/26/2022 [facility] DEPT PAT H AND PG 10:41 AM LAB MEDICINE SPLITTER OPERATOR MCHC 33.6 32.0 - 10/26/2022 [facility] DEPT PAT H AND 36.0 10:41 AM LAB MEDICINE G/DL SPLITTER OPERATOR RDW 13.8 11 - 15 10/26/2022 [facility] DEPT PAT H AND % 10:41 AM LAB MEDICINE SPLITTER OPERATOR Platelet Count 98 (L) 150 - 10/26/2022 [facility] DEPT PATH AND 400 K/UL 10:41 AM LAB MEDICINE SPLITTER OPERATOR MPV 9.1 7 - 11 10/26/2022 [facility] DEPT PAT H AND FL 10:41 AM LAB MEDICINE SPLITTER OPERATOR Neutrophils 81 (H) 41 - 77 10/26/2022 [facility] DEPT PAT H AND % 10:41 AM LAB MEDICINE SPLITTER OPERATOR Lymphocytes 4 (L) 24 - 44 10/26/2022 [facility] DEPT PAT H AND % 10:41 AM LAB MEDICINE SPLITTER OPERATOR Monocytes 13 (H) 4 - 12 % 10/26/2022 [facility] DEPT PAT H AND 10:41 AM LAB MEDICINE SPLITTER OPERATOR Eosinophils 1 0 - 5 % 10/26/2022 [facility] DEPT PAT H AND 10:41 AM LAB MEDICINE SPLITTER OPERATOR Basophils 1 0 - 2 % 10/26/2022 [facility] DEPT PAT H AND 10:41 AM LAB MEDICINE SPLITTER OPERATOR Absolute Neutrophil 6.06 1.8 - 10/26/2022 [facility] DEPT PATH AND Count 7.0 K/UL 10:41 AM LAB MEDICINE SPLITTER OPERATOR Absolute Lymph Count 0.28 (L) 1.0 - 10/26/2022 [facility] DEPT PATH AND 4.8 K/UL 10:41 AM LAB MEDICINE SPLITTER OPERATOR Absolute Monocyte 0.97 (H) 0 - 0.80 10/26/2022 [facility] DE PT PATH AND Count K/UL 10:41 AM LAB MEDICINE SPLITTER OPERATOR Absolute Eosinophil 0.06 0 - 0.45 10/26/2022 [facility] DEPT PATH AND Count K/UL 10:41 AM LAB MEDICINE SPLITTER OPERATOR Absolute Basophil 0.05 0 - 0.20 10/26/2022 [facility] DE PT PATH AND Count K/UL 10:41 AM LAB MEDICINE SPLITTER OPERATOR Anatomical Location / Laterality Collection Method / Volume Eva ection Time Received Time Specimen (Source) BLOOD / Unknown 10/26/2022 9:59 AM SPLITTER OPERATOR 10/26/20 10:00 AM SPLITTER OPERATOR Portillo March MD LABORATORY ORDERABLES City/State/ZIP Code Phone Number Performing Address [place] [address] [facility] DEPT PATH AND [address] [facility] LAB MEDICINE * (ABNORMAL) BASIC METABOLIC PANEL (10/26/2022 9:59 AM SPLITTER OPERATOR) Pathologist Signature Component Value Ref Test Method Analysis Performed A t Range Time Sodium 138 137 - 10/26/2022 [facility] DEPT PAT H AND 147 10:53 AM LAB MEDICINE MMOL/L SPLITTER OPERATOR Potassium 3.6 3.5 - 10/26/2022 [facility] DEPT PAT H AND 5.1 10:53 AM LAB MEDICINE MMOL/L SPLITTER OPERATOR Chloride 106 98 - 110 10/26/2022 [facility] DEPT PAT H AND MMOL/L 10:53 AM LAB MEDICINE SPLITTER OPERATOR CO2 21 21 - 30 10/26/2022 [facility] DEPT PAT H AND MMOL/L 10:53 AM LAB MEDICINE SPLITTER OPERATOR Anion Gap 11 3 - 12 10/26/2022 [facility] DEPT PAT H AND 10:53 AM LAB MEDICINE SPLITTER OPERATOR Glucose 136 (H) 70 - 100 10/26/2022 [facility] DEPT PAT H AND MG/DL 10:53 AM LAB MEDICINE SPLITTER OPERATOR Blood Urea Nitrogen 19 7 - 25 10/26/2022 [facility] DEPT PATH AND MG/DL 10:53 AM LAB MEDICINE SPLITTER OPERATOR Creatinine 1.01 0.4 - 10/26/2022 [facility] DEPT PAT H AND 1.24 10:53 AM LAB MEDICINE MG/DL SPLITTER OPERATOR Calcium 9.0 8.5 - 10/26/2022 [facility] DEPT PAT H AND 10.6 10:53 AM LAB MEDICINE MG/DL SPLITTER OPERATOR eGFR >60 >60 10/26/2022 [facility] DEPT PAT H AND mL/min 10:53 AM LAB MEDICINE SPLITTER OPERATOR Comment: eGFR calculated using the CKD-EPIcr_R equation Anatomical Location / Laterality Collection Method / Volume Eva ection Time Received Time Specimen (Source) BLOOD / Unknown 10/26/2022 9:59 AM SPLITTER OPERATOR 10/26/20 10:00 AM SPLITTER OPERATOR Portillo March MD LABORATORY ORDERABLES [facility]/ZIP Code Phone Number Performing Address [place] [address] [employer] DEPT PATH AND [address] LAB MEDICINE * PERIPHERAL SMEAR (10/26/2022 9:59 AM SPLITTER OPERATOR) Pathologist Signature Component Value Ref Test Method Analysis Performed A t Range Time Peripheral Smear WHITE BLOOD 10/28/2022 [facility] DEPT PA TH AND CELLS APPEAR 9:59 PM LAB MEDICINE NORMAL, WITH SPLITTER OPERATOR MILD LYMPHOPENIA AND MILD INCREASE IN MATURE MONOCYTES. SEVERE NORMOCHROMIC ANEMIA AND MILD THROMBOCYTOP ENIA ARE PRESENT, WITHOUT SCHISTOCYTES OR MORPHOLOGIC FEATURES OF A HEMOLYTIC PROCESS. Pathologist INTERPRETED 10/28/2022 [facility] DEPT PATH AND Signature BY EGNEVA 9:59 PM LAB MEDICINE FRITZ AHN M.D. By the PATH SIGNATURE ABOVE, I attest that I have personally formulated the final interpretati on expressed in this report and that the above diagnosis is based upon my examination of the slides and/or other material indicated in this report. Anatomical Location / Laterality Collection Method / Volume Eva ection Time Received Time Specimen (Source) BLOOD / Unknown 10/26/2022 9:59 AM SPLITTER OPERATOR 10/26/20 10:00 AM SPLITTER OPERATOR Connie Dahl MD LABORATORY ORDERABLES [facility]/State/ZIP Code Phone Number Performing Address [place] [address] [facility] DEPT PATH AND [address] LAB MEDICINE * FOLATE, SERUM (10/26/2022 9:59 AM SPLITTER OPERATOR) Pathologist Signature Component Value Ref Test Method Analysis Performed A t Range Time Serum Folate >22.3 >3.9 10/26/2022 [facility] DEPT PA TH AND NG/ML 11:21 AM LAB MEDICINE SPLITTER OPERATOR Anatomical Location / Laterality Collection Method / Volume Eva ection Time Received Time Specimen (Source) BLOOD / Unknown 10/26/2022 9:59 AM SPLITTER OPERATOR 10/26/20 10:00 AM SPLITTER OPERATOR Connie Dahl MD LABORATORY ORDERABLES City/State/ZIP Code Phone Number Performing Address [place] [address] [facility] DEPT PATH AND [address] LAB MEDICINE * (ABNORMAL) VITAMIN B12 (10/26/2022 9:59 AM SPLITTER OPERATOR) Pathologist Signature Component Value Ref Test Method Analysis Performed A t Range Time Vitamin B12 1,331 (H) 180 - 10/26/2022 [facility] DEPT PAT H AND 914 11:21 AM LAB MEDICINE PG/ML SPLITTER OPERATOR Anatomical Location / Laterality Collection Method / Volume Eva ection Time Received Time Specimen (Source) BLOOD / Unknown 10/26/2022 9:59 AM SPLITTER OPERATOR 10/26/20 10:00 AM SPLITTER OPERATOR Connie Dahl MD LABORATORY ORDERABLES [facility]/ZIP Code Phone Number Performing Address [place] [address] [facility] DEPT PATH AND [address] LAB MEDICINE * (ABNORMAL) IRON + BINDING CAPACITY + %SAT+ FERRITIN (10/26/2022 9:59 AM SPLITTER OPERATOR) Pathologist Signature Component Value Ref Test Method Analysis Performed A t Range Time Iron 28 (L) 50 - 185 10/26/2022 [facility] DEPT PAT H AND MCG/DL 10:53 AM LAB MEDICINE SPLITTER OPERATOR Iron Binding-TIBC 359 270 - 10/26/2022 [facility] DE PT PATH AND 380 10:53 AM LAB MEDICINE MCG/DL SPLITTER OPERATOR % Saturation 8 (L) 28 - 42 10/26/2022 [facility] DEPT PA TH AND % 10:53 AM LAB MEDICINE SPLITTER OPERATOR Ferritin 38 30 - 300 10/26/2022 [facility] DEPT PAT H AND NG/ML 11:09 AM LAB MEDICINE SPLITTER OPERATOR Anatomical Location / Laterality Collection Method / Volume Eva ection Time Received Time Specimen (Source) BLOOD / Unknown 10/26/2022 9:59 AM SPLITTER OPERATOR 10/26/20 10:00 AM SPLITTER OPERATOR Connie Dahl MD LABORATORY ORDERABLES [facility]/ZIP Code Phone Number Performing Address [place] [address] [facility] DEPT PATH AND [address] LAB MEDICINE * (ABNORMAL) CT CHEST W CONTRAST (10/26/2022 4:20 AM SPLITTER OPERATOR) Modality Anatomical Region Laterality Computed Tomography CHEST Anatomical Location / Laterality Collection Method / Volume Eva ection Time Received Time Specimen (Source) 10/26/2022 8:23 AM SPLITTER OPERATOR Impressions 10/26/2022 8:35 AM SPLITTER OPERATOR 1. Small right upper lobe mass [...] 10/26/2022 8:23 AM. Narrative 10/26/2022 8:[address] Chest Clinical Indication: Right upper [...] moderate mediastinal and bilateral hilar lymphadenopathy. A escrow representative left lower paratracheal conglomerate measures 3.7 [...] moderate mediastinal and bilateral hilar lymphadenopathy. A escrow representative left lower paratracheal conglomerate measures 3.7 [...] 10/26/2022 8:[address] ORDERABLES BUSINESS SYSTEM CONSULTANT-TUBE TESTER * MRI HEAD WO CONTRAST (10/25/2022 12:30 PM SPLITTER OPERATOR) Modality Anatomical Region Laterality Magnetic Resonance Head Anatomical Location / Laterality Collection Method / Volume Eva ection Time Received Time Specimen (Source) 10/25/2022 12:46 PM SPLITTER OPERATOR Impressions 10/25/2022 1:00 PM SPLITTER OPERATOR 1. 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 Unchanged associated right occipitotemporal mass [...] 10/25/2022 12:46 PM. Narrative 10/25/2022 1:00 PM SPLITTER OPERATOR EXAM: MRI BRAIN HISTORY: Right posterior [...] with a dominant small to moderate-sized right SPOUT LINER territory infarct. Unchanged associated right occipitotemporal mass [...] DOPPLER ECHO W/ CONTRAST (10/25/2022 12:04 PM SPLITTER OPERATOR) Pathologist Signature Component Value Ref Test [...] Time Specimen (Source) Narrative 10/25/2022 12:46 PM SPLITTER OPERATOR 1. Normal LV size and hyperdynamic [...] CTA NECK WO/W CONT (10/25/2022 8:45 AM SPLITTER OPERATOR) Modality Anatomical Region Laterality Computed Tomography HEAD/NECK Anatomical Location / Laterality Collection Method / Volume Eva ection Time Received Time Specimen (Source) 10/25/2022 9:05 AM SPLITTER OPERATOR Impressions 10/25/2022 9:49 AM SPLITTER OPERATOR CTA head: 1. Redemonstration of a small-moderate ly sized subacute right SPOUT LINER territory infarct without evidence of hemorrhagic conversion. [...] right upper lobe opacity and patchy underlying wzprexipweh-ctxu-ug-bud opacities throughout the visualized lungs. There is [...] on 10/25/2022 9:49 AM. Dictated by Hunter Mratinez DO on 10/25/2022 9:05 AM. Narrative 10/25/2022 9:49 AM SPLITTER OPERATOR EXAM: CTA HEAD AND NECK HISTORY: [...] sized subacute right basal and mesial occipitotemporal SPOUT LINER territory infarct and a tiny recent right [...] sized subacute right basal and mesial occipitotemporal SPOUT LINER territory infarct and a tiny recent right [...] of a small-moderatel y sized subacute right SPOUT LINER territory infarct without evidence of hemorrhagic conversion. [...] right upper lobe opacity and patchy underlying keypoqqqqsm-bxud-hy-bud opacities throughout the visualized lungs. There is [...] CTA HEAD WO/W CONT (10/25/2022 8:45 AM SPLITTER OPERATOR) Modality Anatomical Region Laterality Computed Tomography Head Anatomical Location / Laterality Collection Method / Volume Eva ection Time Received Time Specimen (Source) 10/25/2022 9:05 AM SPLITTER OPERATOR Impressions 10/25/2022 9:49 AM SPLITTER OPERATOR CTA head: 1. Redemonstration of a small-moderate ly sized subacute right SPOUT LINER territory infarct without evidence of hemorrhagic conversion. [...] right upper lobe opacity and patchy underlying bomgpknpqil-repq-uh-bud opacities throughout the visualized lungs. There is [...] 10/25/2022 9:05 AM. Narrative 10/25/2022 9:49 AM SPLITTER OPERATOR EXAM: CTA HEAD AND NECK HISTORY: [...] sized subacute right basal and mesial occipitotemporal SPOUT LINER territory infarct and a tiny recent right [...] sized subacute right basal and mesial occipitotemporal SPOUT LINER territory infarct and a tiny recent right [...] of a small-moderatel y sized subacute right SPOUT LINER territory infarct without evidence of hemorrhagic conversion. [...] right upper lobe opacity and patchy underlying lqlqhwktbvv-ycsi-zc-bud opacities throughout the visualized lungs. There is [...] ORDERABLES * HEMOGLOBIN A1C (10/25/2022 7:12 AM SPLITTER OPERATOR) Pathologist Signature Component Value Ref Test Method Analysis Performed A t Range Time Hemoglobin A1C 5.7 4.0 - 10/25/2022 [employer] DEPT PATH AND 6.0 % 11:09 AM LAB MEDICINE SPLITTER OPERATOR Comment: The ADA recommends that most patients with type 1 and type 2 diabetes maintain an A1c level <7%. Anatomical Location / Laterality Collection Method / Volume Eva ection Time Received Time Specimen (Source) BLOOD / Unknown 10/25/2022 7:12 AM SPLITTER OPERATOR 10/25/20 7:13 AM SPLITTER OPERATOR Portillo March MD LABORATORY ORDERABLES City/State/ZIP Code Phone Number Performing Address [place] [address] [facility] DEPT PATH AND [address] [facility] LAB MEDICINE * (ABNORMAL) LIPID PROFILE (10/25/2022 7:12 AM SPLITTER OPERATOR) Pathologist Signature Component Value Ref Test Method Analysis Performed A t Range Time Cholesterol 115 <200 10/25/2022 [facility] DEPT PAT H AND MG/DL 8:05 AM LAB MEDICINE SPLITTER OPERATOR Triglycerides 190 (H) <150 10/25/2022 [facility] DEPT P ATH AND MG/DL 8:05 AM LAB MEDICINE SPLITTER OPERATOR HDL 25 (L) >40 10/25/2022 [facility] DEPT PAT H AND MG/DL 8:05 AM LAB MEDICINE SPLITTER OPERATOR LDL 62 <100 10/25/2022 [facility] DEPT PAT H AND mg/dL 8:05 AM LAB MEDICINE SPLITTER OPERATOR VLDL 38 MG/DL 10/25/2022 [facility] DEPT PAT H AND 8:05 AM LAB MEDICINE SPLITTER OPERATOR Non HDL Cholesterol 90 MG/DL 10/25/2022 [facility] DEPT PATH AND 8:05 AM LAB MEDICINE SPLITTER OPERATOR Comment: Calculated non-HDL Cholesterol (non-HDL-C) indirectly measures LDL-C, Lp(a), IDL-C, and VLDL-C. It is a surrogate marker for Apoprotein B. Goal should be less than 130 mg/dL. Anatomical Location / Laterality Collection Method / Volume Eva ection Time Received Time Specimen (Source) BLOOD / Unknown 10/25/2022 7:12 AM SPLITTER OPERATOR 10/25/20 7:13 AM SPLITTER OPERATOR Portillo March MD LABORATORY ORDERABLES City/State/ZIP Code Phone Number Performing Address [place] [address] [facility] [address] [facility] LAB MEDICINE * CT HEAD WO CONTRAST (10/24/2022 10:57 PM SPLITTER OPERATOR) Modality Anatomical Region Laterality Computed Tomography Head Anatomical Location / Laterality Collection Method / Volume Eva ection Time Received Time Specimen (Source) 10/24/2022 11:02 PM SPLITTER OPERATOR Addenda Addendum by Gee Page MD on 10/24/2022 11:22 PM SPLITTER OPERATOR Finalized by Gee Page MD, PhD [...] 10/24/2022 11:17 PM. Impressions 10/24/2022 11:16 PM SPLITTER OPERATOR 1. Development of a moderate-sized hyp odensity within the posterior medial occipitotemporal lobe likely representing a evolving late subacute right SPOUT LINER infarct. 2. New hypodensities within the mixed [...] in this report Narrative 10/24/2022 11:16 PM SPLITTER OPERATOR EXAM: CT HEAD HISTORY: CT today [...] spaces along the inferior lentiform nuclei. The estarda white matter interfaces are otherwise maintained. The basal cisterns are patent. The mastoid air cells and visualized paranasal sinuses are well-aerated. Bilateral lens replacements. IMPRESSION 1. Development of a moderate-sized hypo density within the posterior medial occipitotemporal lobe likely representing a evolving late subacute right SPOUT LINER infarct. 2. New hypodensities within the mixed [...] MTZ * ECG 12-LEAD (10/24/2022 10:25 PM SPLITTER OPERATOR) Pathologist Signature Component Value Ref Test [...] Received Time Specimen (Source) 10/24/2022 10:25 PM SPLITTER OPERATOR 10/27/20 7:25 PM SPLITTER OPERATOR Impressions [facility]USE - 10/27/2022 7:25 PM SPLITTER OPERATOR Normal sinus rhythm Minimal voltage criteria for LVH, may be normal variant ( Hernandez product ) Anterior infarct , age undetermined Abnormal ECG When compared with ECG of 12-OCT-2022 18:47, Anterior infarct is now present ST no longer depressed in Lateral leads Confirmed by Ricardo Sparrow ([id number]) on 10/27/2022 7:25:55 PM Narrative Procedure Note Ricardo Sparrow MD - 10/27/2022 IMPRESSION Normal sinus rhythm Minimal voltage criteria for LVH, may be normal variant ( Hernandez product ) Anterior infarct , age undetermined Abnormal ECG When compared with ECG of 12-OCT-2022 18:47, Anterior infarct is now present ST no longer depressed in Lateral leads Confirmed by Riacrdo Sparrow ([id number]) on 10/27/2022 7:25:55 PM Rigoberto N ECG ORDERABLES [facility] City/State/ZIP Code Phone Number Performing Address Organization [facility] * CHEST SINGLE VIEW (10/24/2022 9:50 PM SPLITTER OPERATOR) Modality Anatomical Region Laterality Computed Radiography CHEST Anatomical Location / Laterality Collection Method / Volume Eva ection Time Received Time Specimen (Source) 10/24/2022 10:16 PM SPLITTER OPERATOR Impressions 10/24/2022 10:18 PM SPLITTER OPERATOR Patchy groundglass opacity scattered throughout both lungs concerning for diffuse infectious etiology versus pulmonary edema. Finalized by Gee Page MD, PhD on 10/24/2022 10:18 PM. Dictated by Gee Page MD, PhD on 10/24/2022 10:16 PM. Narrative 10/24/2022 10:18 PM SPLITTER OPERATOR CHEST SINGLE VIEW Clinical indication: concern [...] MD, PhD on 10/24/2022 10:16 PM. Rigoberto Gomez DIAGNOSTIC IMAGING ORDERABL ES [facility] * POC GLUCOSE (10/24/2022 9:40 PM SPLITTER OPERATOR) Pathologist Signature Component Value Ref Test Method Analysis Performed A t Range Time Glucose, POC 98 70 - 100 10/24/2022 [facility] DEPT PA TH AND MG/DL 9:42 PM LAB MEDICINE POC SPLITTER OPERATOR Anatomical Location / Laterality Collection Method / Volume Eva ection Time Received Time Specimen (Source) 10/24/2022 9:40 PM SPLITTER OPERATOR 10/24/20 9:42 PM SPLITTER OPERATOR Unknown Unknown OTHER LABORATORY City/State/ZIP Code Phone Number Performing Address [place] [address] [facility] DEPT PATH AND [address] [facility] LAB MEDICINE POC * TSH WITH FREE T4 REFLEX (10/24/2022 9:38 PM SPLITTER OPERATOR) Pathologist Signature Component Value Ref Test Method Analysis Performed A t Range Time TSH 1.43 0.35 - 10/24/2022 [facility] DEPT PAT H AND 5.00 10:32 PM LAB MEDICINE MCU/ML SPLITTER OPERATOR Anatomical Location / Laterality Collection Method / Volume Eva ection Time Received Time Specimen (Source) BLOOD / Unknown 10/24/2022 9:38 PM SPLITTER OPERATOR 10/24/20 9:47 PM SPLITTER OPERATOR Rigoberto Gomez LABORATORY ORDERABLES [facility] City/State/ZIP Code Phone Number Performing Address [place] [address] [facility] DEPT PATH AND [address] LAB MEDICINE * CLEAR TOP EXTRA URINE TUBE (10/24/2022 9:38 PM SPLITTER OPERATOR) Anatomical Location / Laterality Collection Method / Volume Eva ection Time Received Time Specimen (Source) URINE SPECIMEN / Unknown 10/24/2022 9:38 PM SPLITTER OPERATOR 10/24/2022 9:50 PM SPLITTER OPERATOR Rigoberto N URINE ORDERABLES [facility]/State/ZIP Code Phone Number Performing Address [place] [address] [facility] DEPT PATH AND [address] [facility] LAB MEDICINE * UA LEOS TOP TUBE (10/24/2022 9:38 PM SPLITTER OPERATOR) Pathologist Signature Component Value Ref Test Method Analysis Performed A t Range Time UA Reflex Culture Criteria for 10/28/2022 [facility] DEPT P ATH AND reflex to 11:34 AM LAB MEDICINE culture are SPLITTER OPERATOR WBC>10, Positive Nitrite, and/or >=+1 leukocytes. If quantity is not sufficient, an addendum will follow. Anatomical Location / Laterality Collection Method / Volume Eva ection Time Received Time Specimen (Source) URINE SPECIMEN / Unknown 10/24/2022 9:38 PM SPLITTER OPERATOR 10/24/2022 9:50 PM SPLITTER OPERATOR Rigoberto N URINE ORDERABLES [facility]/State/ZIP Code Phone Number Performing Address [place] [address] [facility] DEPT PATH AND [address] [facility] LAB MEDICINE * URINALYSIS MICROSCOPIC REFLEX TO CULTURE (10/24/2022 9:38 PM SPLITTER OPERATOR) Pathologist Signature Component Value Ref Test Method Analysis Performed A t Range Time WBCs,UA 0-2 0 - 2 10/24/2022 [facility] DEPT PAT H AND /HPF 10:20 PM LAB MEDICINE SPLITTER OPERATOR RBCs,UA PACKED 0 - 3 10/24/2022 [facility] DEPT PAT H AND /HPF 10:20 PM LAB MEDICINE SPLITTER OPERATOR Comment,UA Criteria for 10/24/2022 [facility] DEPT PATH AND reflex to 10:20 PM LAB MEDICINE culture are SPLITTER OPERATOR WBC>10, Positive Nitrite, and/or >=+1 leukocytes. If quantity is not sufficient, an addendum will follow. Squamous Epithelial 0-2 0 - 5 10/24/2022 [facility] DEPT PATH AND Cells 10:20 PM LAB MEDICINE SPLITTER OPERATOR Anatomical Location / Laterality Collection Method / Volume Eva ection Time Received Time Specimen (Source) URINE SPECIMEN / Unknown 10/24/2022 9:38 PM SPLITTER OPERATOR 10/24/2022 9:50 PM SPLITTER OPERATOR Rigoberto N URINE ORDERABLES [facility] City/State/ZIP Code Phone Number Performing Address [place] [address] [facility] DEPT PATH AND [address] [facility] LAB MEDICINE * (ABNORMAL) URINALYSIS DIPSTICK REFLEX TO CULTURE (10/24/2022 9:38 PM SPLITTER OPERATOR) Pathologist Signature Component Value Ref Test Method Analysis Performed A t Range Time Color,UA YELLOW 10/24/2022 [facility] DEPT PATH AND 10:20 PM LAB MEDICINE SPLITTER OPERATOR Turbidity,UA CLEAR CLEAR-CL 10/24/2022 [facility] DEPT PA TH AND EAR 10:20 PM LAB MEDICINE SPLITTER OPERATOR Specific 1.028 1.005 - 10/24/2022 [facility] DEPT PAT H AND [place]-Urine 1.030 10:20 PM LAB MEDICINE SPLITTER OPERATOR Comment: NOTE NEW REFERENCE RANGES pH,UA 5.0 5.0 - 10/24/2022 [facility] DEPT PAT H AND 8.0 10:20 PM LAB MEDICINE SPLITTER OPERATOR Protein,UA 2+ (A) NEG-NEG 10/24/2022 [facility] DEPT PAT H AND 10:20 PM LAB MEDICINE SPLITTER OPERATOR Glucose,UA NEG NEG-NEG 10/24/2022 [facility] DEPT PAT H AND 10:20 PM LAB MEDICINE SPLITTER OPERATOR Ketones,UA NEG NEG-NEG 10/24/2022 [facility] DEPT PAT H AND 10:20 PM LAB MEDICINE SPLITTER OPERATOR Bilirubin,UA NEG NEG-NEG 10/24/2022 [facility] DEPT PA TH AND 10:20 PM LAB MEDICINE SPLITTER OPERATOR Blood,UA 3+ (A) NEG-NEG 10/24/2022 [facility] DEPT PAT H AND 10:20 PM LAB MEDICINE SPLITTER OPERATOR Urobilinogen,UA NORMAL NORM-NOR 10/24/2022 [facility] DEPT PATH AND MAL 10:20 PM LAB MEDICINE SPLITTER OPERATOR Nitrite,UA NEG NEG-NEG 10/24/2022 [facility] DEPT PAT H AND 10:20 PM LAB MEDICINE SPLITTER OPERATOR Leukocytes,UA NEG NEG-NEG 10/24/2022 [facility] DEPT P ATH AND 10:20 PM LAB MEDICINE SPLITTER OPERATOR Urine Ascorbic Acid, NEG NEG-NEG 10/24/2022 [facility] DEPT PATH AND UA 10:20 PM LAB MEDICINE SPLITTER OPERATOR Anatomical Location / Laterality Collection Method / Volume Eva ection Time Received Time Specimen (Source) URINE SPECIMEN / Unknown 10/24/2022 9:38 PM SPLITTER OPERATOR 10/24/2022 9:50 PM SPLITTER OPERATOR Rigoberto N URINE ORDERABLES [facility]/ZIP Code Phone Number Performing Address [place] [address] [employer] DEPT PATH AND [address] LAB MEDICINE * MAGNESIUM (10/24/2022 9:38 PM SPLITTER OPERATOR) Pathologist Signature Component Value Ref Test Method Analysis Performed A t Range Time Magnesium 2.2 1.6 - 10/24/2022 [facility] DEPT PAT H AND 2.6 10:20 PM LAB MEDICINE mg/dL SPLITTER OPERATOR Anatomical Location / Laterality Collection Method / Volume Eva ection Time Received Time Specimen (Source) BLOOD / Unknown 10/24/2022 9:38 PM SPLITTER OPERATOR 10/24/20 9:47 PM SPLITTER OPERATOR Rigoberto N LABORATORY ORDERABLES [facility]/ZIP Code Phone Number Performing Address [place] [address] [facility] DEPT PATH AND [address] [facility] . LAB MEDICINE * PROTIME INR (PT) (10/24/2022 9:38 PM SPLITTER OPERATOR) Pathologist Signature Component Value Ref Test Method Analysis Performed A t Range Time Protime 13.5 9.5 - 10/24/2022 [facility] DEPT PAT H AND 14.2 SEC 10:11 PM LAB MEDICINE SPLITTER OPERATOR INR 1.2 0.8 - 10/24/2022 [facility] DEPT PAT H AND 1.2 10:11 PM LAB MEDICINE SPLITTER OPERATOR Anatomical Location / Laterality Collection Method / Volume Eva ection Time Received Time Specimen (Source) BLOOD / Unknown 10/24/2022 9:38 PM SPLITTER OPERATOR 10/24/20 9:47 PM SPLITTER OPERATOR Rigoberto N LABORATORY ORDERABLES [facility]/ZIP Code Phone Number Performing Address [place] [address] [facility] DEPT PATH AND [address] LAB MEDICINE * (ABNORMAL) COMPREHENSIVE METABOLIC PANEL (10/24/2022 9:38 PM SPLITTER OPERATOR) Pathologist Signature Component Value Ref Test Method Analysis Performed A t Range Time Sodium 141 137 - 10/24/2022 [facility] DEPT PAT H AND 147 10:20 PM LAB MEDICINE MMOL/L SPLITTER OPERATOR Potassium 3.9 3.5 - 10/24/2022 [facility] DEPT PAT H AND 5.1 10:20 PM LAB MEDICINE MMOL/L SPLITTER OPERATOR Chloride 105 98 - 110 10/24/2022 [facility] DEPT PAT H AND MMOL/L 10:20 PM LAB MEDICINE SPLITTER OPERATOR Glucose 95 70 - 100 10/24/2022 [facility] DEPT PAT H AND MG/DL 10:20 PM LAB MEDICINE SPLITTER OPERATOR Blood Urea Nitrogen 27 (H) 7 - 25 10/24/2022 [facility] DEPT PATH AND MG/DL 10:20 PM LAB MEDICINE SPLITTER OPERATOR Creatinine 1.01 0.4 - 10/24/2022 [facility] DEPT PAT H AND 1.24 10:20 PM LAB MEDICINE MG/DL SPLITTER OPERATOR Calcium 9.3 8.5 - 10/24/2022 [facility] DEPT PAT H AND 10.6 10:20 PM LAB MEDICINE MG/DL SPLITTER OPERATOR Total Protein 7.1 6.0 - 10/24/2022 [facility] DEPT P ATH AND 8.0 G/DL 10:20 PM LAB MEDICINE SPLITTER OPERATOR Total Bilirubin 0.4 0.3 - 10/24/2022 [facility] DEPT PATH AND 1.2 10:20 PM LAB MEDICINE MG/DL SPLITTER OPERATOR Albumin 4.0 3.5 - 10/24/2022 [facility] DEPT PAT H AND 5.0 G/DL 10:20 PM LAB MEDICINE SPLITTER OPERATOR Alk Phosphatase 105 25 - 110 10/24/2022 [facility] DEPT PATH AND U/L 10:20 PM LAB MEDICINE SPLITTER OPERATOR AST (SGOT) 65 (H) 7 - 40 10/24/2022 [facility] DEPT PAT H AND U/L 10:20 PM LAB MEDICINE SPLITTER OPERATOR CO2 26 21 - 30 10/24/2022 [facility] DEPT PAT H AND MMOL/L 10:20 PM LAB MEDICINE SPLITTER OPERATOR ALT (SGPT) 63 (H) 7 - 56 10/24/2022 [facility] DEPT PAT H AND U/L 10:20 PM LAB MEDICINE SPLITTER OPERATOR Anion Gap 10 3 - 12 10/24/2022 [facility] DEPT PAT H AND 10:20 PM LAB MEDICINE SPLITTER OPERATOR eGFR >60 >60 10/24/2022 [facility] DEPT PAT H AND mL/min 10:20 PM LAB MEDICINE SPLITTER OPERATOR Comment: eGFR calculated using the CKD-EPIcr_R equation Anatomical Location / Laterality Collection Method / Volume Eva ection Time Received Time Specimen (Source) BLOOD / Unknown 10/24/2022 9:38 PM SPLITTER OPERATOR 10/24/20 9:47 PM SPLITTER OPERATOR Rigoberto Gomez LABORATORY ORDERABLES [place] City/State/ZIP Code Phone Number Performing Address [place] [address] [facility] DEPT PATH AND [address] [facility] LAB MEDICINE * (ABNORMAL) CBC AND DIFF (10/24/2022 9:38 PM SPLITTER OPERATOR) Pathologist Signature Component Value Ref Test Method Analysis Performed A t Range Time White Blood Cells 7.5 4.5 - 10/24/2022 [facility] DE PT PATH AND 11.0 9:56 PM LAB MEDICINE K/UL SPLITTER OPERATOR RBC 3.71 (L) 4.4 - 10/24/2022 [facility] DEPT PAT H AND 5.5 M/UL 9:56 PM LAB MEDICINE SPLITTER OPERATOR Hemoglobin 12.5 (L) 13.5 - 10/24/2022 [facility] DEPT PAT H AND 16.5 9:56 PM LAB MEDICINE GM/DL SPLITTER OPERATOR Hematocrit 37.4 (L) 40 - 50 10/24/2022 [facility] DEPT PAT H AND % 9:56 PM LAB MEDICINE SPLITTER OPERATOR MCV 101.0 (H) 80 - 100 10/24/2022 [facility] DEPT PAT H AND FL 9:56 PM LAB MEDICINE SPLITTER OPERATOR MCH 33.6 26 - 34 10/24/2022 [facility] DEPT PAT H AND PG 9:56 PM LAB MEDICINE SPLITTER OPERATOR MCHC 33.3 32.0 - 10/24/2022 [facility] DEPT PAT H AND 36.0 9:56 PM LAB MEDICINE G/DL SPLITTER OPERATOR RDW 14.4 11 - 15 10/24/2022 [facility] DEPT PAT H AND % 9:56 PM LAB MEDICINE SPLITTER OPERATOR Platelet Count 116 (L) 150 - 10/24/2022 [facility] DEPT PATH AND 400 K/UL 9:56 PM LAB MEDICINE SPLITTER OPERATOR MPV 9.2 7 - 11 10/24/2022 [facility] DEPT PAT H AND FL 9:56 PM LAB MEDICINE SPLITTER OPERATOR Neutrophils 73 41 - 77 10/24/2022 [facility] DEPT PAT H AND % 9:56 PM LAB MEDICINE SPLITTER OPERATOR Lymphocytes 12 (L) 24 - 44 10/24/2022 [facility] DEPT PAT H AND % 9:56 PM LAB MEDICINE SPLITTER OPERATOR Monocytes 11 4 - 12 % 10/24/2022 [facility] DEPT PAT H AND 9:56 PM LAB MEDICINE SPLITTER OPERATOR Eosinophils 3 0 - 5 % 10/24/2022 [facility] DEPT PAT H AND 9:56 PM LAB MEDICINE SPLITTER OPERATOR Basophils 1 0 - 2 % 10/24/2022 [facility] DEPT PAT H AND 9:56 PM LAB MEDICINE SPLITTER OPERATOR Absolute Neutrophil 5.48 1.8 - 10/24/2022 [facility] DEPT PATH AND Count 7.0 K/UL 9:56 PM LAB MEDICINE SPLITTER OPERATOR Absolute Lymph Count 0.89 (L) 1.0 - 10/24/2022 [facility] DEPT PATH AND 4.8 K/UL 9:56 PM LAB MEDICINE SPLITTER OPERATOR Absolute Monocyte 0.85 (H) 0 - 0.80 10/24/2022 [facility] DE PT PATH AND Count K/UL 9:56 PM LAB MEDICINE SPLITTER OPERATOR Absolute Eosinophil 0.24 0 - 0.45 10/24/2022 [facility] DEPT PATH AND Count K/UL 9:56 PM LAB MEDICINE SPLITTER OPERATOR Absolute Basophil 0.06 0 - 0.20 10/24/2022 [facility] DE PT PATH AND Count K/UL 9:56 PM LAB MEDICINE SPLITTER OPERATOR MDW (Monocyte 20.2 <20.7 10/24/2022 [facility] DEPT P ATH AND Distribution Width) 9:56 PM LAB MEDICINE SPLITTER OPERATOR Comment: MDW greater than 20.0, together [...] (Source) BLOOD / Unknown 10/24/2022 9:38 PM SPLITTER OPERATOR 10/24/20 9:47 PM SPLITTER OPERATOR Rigoberto Gomez LABORATORY ORDERABLES [place] City/State/ZIP Code Phone Number Performing Address [place] [address] [facility] DEPT PATH AND [address] [facility]. LAB MEDICINE * CT HEAD EXTERNAL IMAGING (10/24/2022 12:00 AM SPLITTER OPERATOR) Anatomical Location / Laterality Collection Method / Volume Eva ection Time Received Time Specimen (Source) Narrative Scheduling, Silent - 10/28/2022 8:29 AM SPLITTER OPERATOR This order has been auto finalized and does not contain a result. Radiologist RADIOLOGY EXTERNAL ORDERABL ES Outpatient * TELEMETRY STRIPS-SCAN (10/24/2022 12:00 AM SPLITTER OPERATOR) Narrative 10/24/2022 12:00 AM SPLITTER OPERATOR Ordered by an unspecified provider. Scanned Document PROCEDURE DUMMY ORDERS * TELEMETRY STRIPS-SCAN (10/24/2022 12:00 AM SPLITTER OPERATOR) Narrative 10/24/2022 12:00 AM SPLITTER OPERATOR Ordered by an unspecified provider. Scanned Document PROCEDURE DUMMY ORDERS * TELEMETRY STRIPS-SCAN (10/24/2022 12:00 AM SPLITTER OPERATOR) Narrative 10/24/2022 12:00 AM SPLITTER OPERATOR Ordered by an unspecified provider. Scanned Document PROCEDURE DUMMY ORDERS * TELEMETRY STRIPS-SCAN (10/24/2022 12:00 AM SPLITTER OPERATOR) Narrative 10/24/2022 12:00 AM SPLITTER OPERATOR Ordered by an unspecified provider. Scanned Document PROCEDURE DUMMY ORDERS * TELEMETRY STRIPS-SCAN (10/24/2022 12:00 AM SPLITTER OPERATOR) Narrative 10/24/2022 12:00 AM SPLITTER OPERATOR Ordered by an unspecified provider. Scanned Document PROCEDURE DUMMY ORDERS * TELEMETRY STRIPS-SCAN (10/24/2022 12:00 AM SPLITTER OPERATOR) Narrative 10/24/2022 12:00 AM SPLITTER OPERATOR Ordered by an unspecified provider. Scanned Document PROCEDURE DUMMY ORDERS * TELEMETRY STRIPS-SCAN (10/24/2022 12:00 AM SPLITTER OPERATOR) Narrative 10/24/2022 12:00 AM SPLITTER OPERATOR Ordered by an unspecified provider. Scanned Document PROCEDURE DUMMY ORDERS * TELEMETRY STRIPS-SCAN (10/24/2022 12:00 AM SPLITTER OPERATOR) Narrative 10/24/2022 12:00 AM SPLITTER OPERATOR Ordered by an unspecified provider. Scanned Document PROCEDURE DUMMY ORDERS * TELEMETRY STRIPS-SCAN (10/24/2022 12:00 AM SPLITTER OPERATOR) Narrative 10/24/2022 12:00 AM SPLITTER OPERATOR Ordered by an unspecified provider. Scanned Document PROCEDURE DUMMY ORDERS * TELEMETRY STRIPS-SCAN (10/24/2022 12:00 AM SPLITTER OPERATOR) Narrative 10/24/2022 12:00 AM SPLITTER OPERATOR Ordered by an unspecified provider. Scanned Document PROCEDURE DUMMY ORDERS * TELEMETRY STRIPS-SCAN (10/24/2022 12:00 AM SPLITTER OPERATOR) Narrative 10/24/2022 12:00 AM SPLITTER OPERATOR Ordered by an unspecified provider. 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) Cerebrovascular accident (CVA), unspeci fied mechanism ([facility]) Transaminitis Nonspecific elevation of levels of saldivar saminase or lactic acid dehydrogenase (LDH) Mass of right lung Lung mass Swelling, mass, or lump in chest SDH (subdural hematoma) Subdural hemorrhage Essential tremor Essential and other specified forms of tremor Acute arterial ischemic stroke, multifo milagro, multiple vascular territories ([facility]) Unspecified cerebral artery occlusion w ith cerebral [...] forms of tremor PAD (peripheral artery disease) ([facility]) Peripheral vascular disease, unspecifie d Delirium Other alteration of consciousness Thrombocytopenia ([facility]) Thrombocytopenia, unspecified Primary hypertension Unspecified essential hypertension 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 Chronic low back pain Lumbago Lung mass Swelling, mass, or lump in chest documented in this encounter Admitting Diagnoses Diagnosis SDH (subdural hematoma) Subdural hemorrhage documented in this encounter Administered Medications Action Date Dose Rate Site Medication Order MAR Action 11/05/2022 7:01 AM SPLITTER OPERATOR 1,000 mg acetaminophen (TYLENOL EXTRA STRENGTH) Given tablet 1,000 mg 1,000 mg, Oral, EVERY 8 HOURS, First dose (after last modification) on Fri10/30/22 at 0600, Until Discontinued, TOTAL ACETAMINOPHEN DOSE NOT TO EXCEED 4GM DAILY, Admission/Obs/Extended Recovery 1,000 mg Given 11/04/2022 9:21 PM SPLITTER OPERATOR 1,000 mg Given 11/03/2022 8:31 PM SPLITTER OPERATOR 1,000 mg Given 11/03/2022 2:32 PM SPLITTER OPERATOR 1,000 mg Given 11/02/2022 8:43 PM SPLITTER OPERATOR 1,000 mg Given 11/02/2022 2:22 PM SPLITTER OPERATOR 1,000 mg Given 11/02/2022 5:21 AM SPLITTER OPERATOR 1,000 mg Given 11/01/2022 9:06 PM SPLITTER OPERATOR 1,000 mg Given 10/31/2022 9:02 PM SPLITTER OPERATOR 1,000 mg Given 10/31/2022 2:03 PM SPLITTER OPERATOR 1,000 mg Given 10/31/2022 5:53 AM SPLITTER OPERATOR 1,000 mg Given 10/30/2022 9:48 PM SPLITTER OPERATOR 1,000 mg Given 10/30/2022 2:35 PM SPLITTER OPERATOR 11/05/2022 9:13 AM SPLITTER OPERATOR 81 mg aspirin EC tablet 81 mg Given 81 mg, Oral, DAILY, First dose on Fri11/01/22 at 0900, Until Discontinued 81 mg Given 11/04/2022 9:28 AM SPLITTER OPERATOR 81 mg Given 11/03/2022 8:57 AM SPLITTER OPERATOR 81 mg Given 11/02/2022 9:17 AM SPLITTER OPERATOR 81 mg Given 11/01/2022 10:33 AM SPLITTER OPERATOR 11/05/2022 9:13 AM SPLITTER OPERATOR 80 mg atorvastatin (LIPITOR) tablet 80 mg Given 80 mg, Oral, DAILY, First dose on Fri10/25/22 at 0900, Until Discontinued, Admission/Obs/Extended Recovery 80 mg Given 11/04/2022 9:28 AM SPLITTER OPERATOR 80 mg Given 11/03/2022 8:57 AM SPLITTER OPERATOR 80 mg Given 11/02/2022 9:17 AM SPLITTER OPERATOR 80 mg Given 11/01/2022 10:33 AM SPLITTER OPERATOR 80 mg Given 10/31/2022 8:55 AM SPLITTER OPERATOR 80 mg Given 10/30/2022 8:13 AM SPLITTER OPERATOR 80 mg Given 10/29/2022 8:42 AM SPLITTER OPERATOR 80 mg Given 10/28/2022 2:18 PM SPLITTER OPERATOR 80 mg Given 10/27/2022 8:04 AM SPLITTER OPERATOR 80 mg Given 10/26/2022 9:39 AM SPLITTER OPERATOR 80 mg Given 10/25/2022 9:19 AM SPLITTER OPERATOR 11/04/2022 9:28 AM SPLITTER OPERATOR 12.5 mg carvediloL (COREG) tablet 12.5 mg Given 12.5 mg, Oral, TWICE DAILY, First dose on Martine 10/31/22 at 0900, Until Discontinued, Hold for heart rate < 60 bpm or systolic BP < 100 12.5 mg Given 11/03/2022 8:57 AM SPLITTER OPERATOR 12.5 mg Given 11/02/2022 8:43 PM SPLITTER OPERATOR 12.5 mg Given 11/02/2022 9:17 AM SPLITTER OPERATOR 12.5 mg Given 11/01/2022 9:06 PM SPLITTER OPERATOR 12.5 mg Given 11/01/2022 10:33 AM SPLITTER OPERATOR 12.5 mg Given 10/31/2022 9:01 PM SPLITTER OPERATOR 12.5 mg Given 10/31/2022 8:55 AM SPLITTER OPERATOR 11/02/2022 8:43 PM SPLITTER OPERATOR 10 mL dextromethorphan/guaiFENesin Given (ROBITUSSIN-DM) oral syrup 10 mL 10 mL, Oral, EVERY 6 HOURS PRN, Starting on 10/26/22 at 0652, Until 11/05/22 at 1437, Cough, Delivers Guaifenesin 100mg and Dextromethorphan 10mg per 5ml 10 mL Given 10/27/2022 11:17 AM SPLITTER OPERATOR 10 mL Given 10/26/2022 11:31 PM SPLITTER OPERATOR 10 mL Given 10/26/2022 5:32 PM SPLITTER OPERATOR 11/05/2022 9:13 AM SPLITTER OPERATOR 100 mg docusate (COLACE) capsule 100 mg Given 100 mg, Oral, TWICE DAILY, First dose o n 10/25/22 at 0100, Until Discontinued, Hold for loose stools, Admission/Obs/Extended Recovery 100 mg Given 11/03/2022 8:32 PM SPLITTER OPERATOR 100 mg Given 11/03/2022 8:57 AM SPLITTER OPERATOR 100 mg Given 11/02/2022 8:43 PM SPLITTER OPERATOR 100 mg Given 11/02/2022 9:17 AM SPLITTER OPERATOR 100 mg Given 11/01/2022 9:06 PM SPLITTER OPERATOR 100 mg Given 10/31/2022 8:55 AM SPLITTER OPERATOR 100 mg Given 10/30/2022 9:48 PM SPLITTER OPERATOR 100 mg Given 10/30/2022 8:13 AM SPLITTER OPERATOR 100 mg Given 10/29/2022 8:42 PM SPLITTER OPERATOR 100 mg Given 10/29/2022 8:42 AM SPLITTER OPERATOR 100 mg Given 10/28/2022 8:11 PM SPLITTER OPERATOR 100 mg Given 10/28/2022 2:19 PM SPLITTER OPERATOR 100 mg Given 10/27/2022 9:45 PM SPLITTER OPERATOR 100 mg Given 10/27/2022 8:03 AM SPLITTER OPERATOR 100 mg Given 10/26/2022 8:22 PM SPLITTER OPERATOR 100 mg Given 10/26/2022 9:39 AM SPLITTER OPERATOR 100 mg Given 10/25/2022 8:27 PM SPLITTER OPERATOR 100 mg Given 10/25/2022 9:19 AM SPLITTER OPERATOR 100 mg Given 10/25/2022 2:45 AM SPLITTER OPERATOR 11/04/2022 9:21 PM SPLITTER OPERATOR 40 mg Abdomina l Tissue enoxaparin [...] mg Abdominal Tissue Given 11/03/2022 8:32 PM SPLITTER OPERATOR 40 mg Abdomen:LLQ Given 11/02/2022 8:43 PM SPLITTER OPERATOR 40 mg Abdomen:LLQ Given 11/01/2022 9:06 PM SPLITTER OPERATOR 40 mg Abdominal Tissue Given 11/01/2022 10:34 AM SPLITTER OPERATOR 10/26/2022 2:14 AM SPLITTER OPERATOR 1 lozenge eucalyptus-menthoL (HALLS) lozenge 1 Given lozenge 1 lozenge, Oral, EVERY 2 HOURS PRN, Starting on Fri10/25/22 at 2130, Until Fri11/05/22 at 1437, Mouth/Throat Pain 1 lozenge Given 10/26/2022 12:24 AM SPLITTER OPERATOR 11/05/2022 9:13 AM SPLITTER OPERATOR 324 mg ferrous gluconate tablet 324 mg Given 324 mg, Oral, EVERY 48 HOURS, First dos e on Fri10/30/22 at 0900, Until Discontinued, Each 324mg ferrous gluconate delivers 37.5mg elemental iron. 324 mg Given 11/03/2022 8:58 AM SPLITTER OPERATOR 324 mg Given 11/01/2022 10:36 AM SPLITTER OPERATOR 324 mg Given 10/30/2022 8:16 AM SPLITTER OPERATOR 11/05/2022 9:14 AM SPLITTER OPERATOR 2 sprays fluticasone propionate (FLONASE) nasal Given spray 2 spray 2 spray, Each Nostril, DAILY, First dos e on Fri10/25/22 at 1400, Until Discontinued 2 sprays Given 11/04/2022 9:28 AM SPLITTER OPERATOR 2 sprays Given 11/03/2022 8:59 AM SPLITTER OPERATOR 2 sprays Given 11/02/2022 9:18 AM SPLITTER OPERATOR 2 sprays Given 11/01/2022 10:35 AM SPLITTER OPERATOR 2 sprays Given 10/31/2022 8:56 AM SPLITTER OPERATOR 2 sprays Given 10/30/2022 8:14 AM SPLITTER OPERATOR 2 sprays Given 10/29/2022 8:42 AM SPLITTER OPERATOR 2 sprays Given 10/28/2022 2:19 PM SPLITTER OPERATOR 2 sprays Given 10/27/2022 8:05 AM SPLITTER OPERATOR 2 sprays Given 10/26/2022 9:41 AM SPLITTER OPERATOR 2 sprays Given 10/25/2022 4:21 PM SPLITTER OPERATOR 11/05/2022 4:02 AM SPLITTER OPERATOR 20 mg hydrALAZINE (APRESOLINE) tablet 20 mg Given 20 mg, Oral, EVERY 8 HOURS PRN, Starting on Fri10/31/22 at 0751, Until Fri11/05/22 at 1437, Systolic Blood Pressure..., SBP >160 10/31/2022 6:00 AM SPLITTER OPERATOR 10 mg labetaloL (NORMODYNE) injection 10 mg Given 10 mg, Intravenous, EVERY 15 MIN PRN, Starting on Fri10/30/22 at 1150, Until Fri11/05/22 at 1437, Systolic Blood Pressure..., >160 11/04/2022 9:29 AM SPLITTER OPERATOR 1 patch Back lidocaine (LIDODERM) 5 [...] patch Back Patch/Topical Applied 11/03/2022 8:58 AM SPLITTER OPERATOR 1 patch Back Patch/Topical Applied 11/02/2022 9:17 AM SPLITTER OPERATOR 1 patch Abdominal Tissue Patch/Topical Applied 11/01/2022 10:33 AM SPLITTER OPERATOR 1 patch Back Patch/Topical Applied 10/31/2022 8:55 AM SPLITTER OPERATOR 1 patch Back Patch/Topical Applied 10/30/2022 8:12 AM SPLITTER OPERATOR 1 patch Back Patch/Topical Applied 10/29/2022 8:42 AM SPLITTER OPERATOR 1 patch Back Patch/Topical Applied 10/28/2022 2:19 PM SPLITTER OPERATOR 1 patch Back Patch/Topical Applied 10/27/2022 8:04 AM SPLITTER OPERATOR 1 patch Back Patch/Topical Applied 10/26/2022 9:40 AM SPLITTER OPERATOR 11/05/2022 9:13 AM SPLITTER OPERATOR 500 mg methocarbamoL (ROBAXIN) tablet 500 mg Given 500 mg, Oral, TWICE DAILY, First dose o n Fri10/25/22 at 0730, Until Discontinue d 500 mg Given 11/04/2022 9:21 PM SPLITTER OPERATOR 500 mg Given 11/04/2022 9:28 AM SPLITTER OPERATOR 500 mg Given 11/03/2022 8:31 PM SPLITTER OPERATOR 500 mg Given 11/03/2022 8:57 AM SPLITTER OPERATOR 500 mg Given 11/02/2022 8:43 PM SPLITTER OPERATOR 500 mg Given 11/02/2022 9:17 AM SPLITTER OPERATOR 500 mg Given 11/01/2022 9:06 PM SPLITTER OPERATOR 500 mg Given 11/01/2022 10:33 AM SPLITTER OPERATOR 500 mg Given 10/31/2022 9:01 PM SPLITTER OPERATOR 500 mg Given 10/31/2022 8:55 AM SPLITTER OPERATOR 500 mg Given 10/30/2022 9:48 PM SPLITTER OPERATOR 500 mg Given 10/30/2022 8:13 AM SPLITTER OPERATOR 500 mg Given 10/29/2022 8:42 PM SPLITTER OPERATOR 500 mg Given 10/29/2022 8:42 AM SPLITTER OPERATOR 500 mg Given 10/28/2022 8:11 PM SPLITTER OPERATOR 500 mg Given 10/27/2022 9:44 PM SPLITTER OPERATOR 500 mg Given 10/27/2022 8:05 AM SPLITTER OPERATOR 500 mg Given 10/26/2022 8:22 PM SPLITTER OPERATOR 500 mg Given 10/26/2022 9:40 AM SPLITTER OPERATOR 500 mg Given 10/25/2022 8:27 PM SPLITTER OPERATOR 500 mg Given 10/25/2022 7:41 AM SPLITTER OPERATOR 11/03/2022 8:58 AM SPLITTER OPERATOR 10 mL milk of magnesia (CONC) oral suspension Given 10 mL 10 mL, Oral, DAILY, First dose on Fri10/25/22 at 0900, Until Discontinued, May hold if BM within 24 hours of dose. 10 mL CONC = 30 mL MOM, Admission/Obs/Extended Recovery 10 mL Given 11/02/2022 9:17 AM SPLITTER OPERATOR 10 mL Given 10/31/2022 8:55 AM SPLITTER OPERATOR 10 mL Given 10/26/2022 9:40 AM SPLITTER OPERATOR 10 mL Given 10/25/2022 9:19 AM SPLITTER OPERATOR nicotine (polacrilex) (COMMIT) lozenge 2 mg 2 mg, Oral, EVERY 1 HOUR PRN, Starting on Fri10/25/22 at 1421, Until Fri11/05/22 at 1437, Cravings, Do not use more than one lozenge at a time. Max 5 lozenges every 6 hours, 20 lozenges/day 11/03/2022 8:58 AM SPLITTER OPERATOR 17 g polyethylene glycol 3350 (MIRALAX) Given packet 17 g 17 g (1 packet), Oral, DAILY, First dos e on Fri10/28/22 at 1400, Until Discontinued, 8.5 GRAMS = 0.5 PACKET 17 GRAMS = 1 PACKET 34 GRAMS = 2 PACKETS 17 g Given 11/02/2022 9:18 AM SPLITTER OPERATOR 17 g Given 11/01/2022 10:34 AM SPLITTER OPERATOR 17 g Given 10/28/2022 2:18 PM SPLITTER OPERATOR 11/03/2022 8:31 PM SPLITTER OPERATOR 1 tablet senna/docusate (SENOKOT-S) tablet 1 Given tablet 1 tablet, Oral, TWICE DAILY, First dose on Fri10/25/22 at 0100, Until Discontinued, Hold for loose stools. If patient unable to take tablet, give 10 mL of senna/docusate (SENOKOT-S) solution. Send [employer] message to pharmacy., If patient unable to take tablet, give 10 mL of senna/docusate (SENOKOT-S) solution., Admission/Obs/Extended Recovery 1 tablet Given 11/03/2022 8:57 AM SPLITTER OPERATOR 1 tablet Given 11/02/2022 8:43 PM SPLITTER OPERATOR 1 tablet Given 11/02/2022 9:17 AM SPLITTER OPERATOR 1 tablet Given 11/01/2022 9:06 PM SPLITTER OPERATOR 1 tablet Given 10/31/2022 8:55 AM SPLITTER OPERATOR 1 tablet Given 10/30/2022 9:48 PM SPLITTER OPERATOR 1 tablet Given 10/30/2022 8:13 AM SPLITTER OPERATOR 1 tablet Given 10/29/2022 8:42 AM SPLITTER OPERATOR 1 tablet Given 10/28/2022 8:11 PM SPLITTER OPERATOR 1 tablet Given 10/28/2022 2:18 PM SPLITTER OPERATOR 1 tablet Given 10/27/2022 9:44 PM SPLITTER OPERATOR 1 tablet Given 10/26/2022 8:22 PM SPLITTER OPERATOR 1 tablet Given 10/26/2022 9:39 AM SPLITTER OPERATOR 1 tablet Given 10/25/2022 8:27 PM SPLITTER OPERATOR 1 tablet Given 10/25/2022 9:19 AM SPLITTER OPERATOR 1 tablet Given 10/25/2022 2:45 AM SPLITTER OPERATOR 10/25/2022 11:50 PM SPLITTER OPERATOR 2 sprays sodium chloride (SEA MIST) 0.65 % nasal Given spray 2 spray 2 spray, Each Nostril, NEEDED, Starting on Fri10/25/22 at 2231, Until Fri11/05/22 at 1437, Congestion 11/03/2022 8:57 AM SPLITTER OPERATOR 50 mg traMADoL (ULTRAM) tablet 50 mg Given 50 mg, Oral, EVERY 6 HOURS PRN, Starting on Fri10/28/22 at 0516, Until Fri11/05/22 at 1437, Pain PO 50 mg Given 11/02/2022 4:01 PM SPLITTER OPERATOR 50 mg Given 11/01/2022 1:43 PM SPLITTER OPERATOR 50 mg Given 10/31/2022 11:07 PM SPLITTER OPERATOR 50 mg Given 10/30/2022 10:32 PM SPLITTER OPERATOR 50 mg Given 10/30/2022 2:36 PM SPLITTER OPERATOR 50 mg Given 10/30/2022 6:08 AM SPLITTER OPERATOR 50 mg Given 10/29/2022 5:57 PM SPLITTER OPERATOR 50 mg Given 10/28/2022 5:30 AM SPLITTER OPERATOR documented in this encounter Discontinued Medications Start Date End Date Medication Sig Discontinue Reason 10/27/2022 aspirin 325 mg tablet Take 81 mg Removed from by mouth [employer]ER Med List daily. Plus one extra prn [...] Recently Administered Medications Times are shown in SPLITTER OPERATOR. 11/04/2022 11/05/2022 Medication Order 11/03/2022 0541 [...] Patien t 10/30/22 at 0600, Until Discontinued, sleeping)1432 (Given TOTAL ACETAMINOPHEN DOSE NOT TO EXCEED - Provider: Alannah ndrew 4GM DAILY, Admission/Obs/Extended ARMANDO Roberson)2030 (Giv en Recovery - Provider: Delicia Braden RN)2116 (Canceled Entry - Provider: Delicia Braden RN) 927 (Given - Provider: Chris Roberson RN) 912 (Given - Provider: Kathy Reid, RN ) aspirin EC tablet 81 mg 0857 (Given - 81 mg, Oral, DAILY, First dose on Fri Provider: Andr ew 11/01/22 at 0900, Until Discontinued ARMANDO Roberson) 09 (Given - Provider: Chris Roberson RN) 912 (Given - Provider: Kathy Reid, RN ) atorvastatin (LIPITOR) tablet 80 mg 0857 (Given - 80 mg, Oral, DAILY, First dose on Fri Provider: Andr ew 10/25/22 at 0900, Until Discontinued, ARMANDO Roberson) [...] (Patch/Topical Removed - Provider: Yelena Oviedo RN) 0914 (Med Not Given - Provider: Kathy espinoza [...] TWICE DAILY, First dose on Provider: Alannah ndrleandra Fri10/25/22 at 0730, Until Discontinued ARMANDO Roberson)20 (Given - Provider: Delicia Braden RN) 0923 (Med Not Given - Provider: Chris duran RN - Reason: Loose stools) 0914 (Med Not Given - Provider: Kathy espinoza RN - Reason: Patient Refused) milk of magnesia (CONC) oral suspension 0858 (Given - 10 mL Provider: Chris 10 mL, Oral, DAILY, First dose on Fri ARMANDO Roberson) 10/25/22 at 0900, Until Discontinued, May hold if BM within 24 hours of dose. 10 mL CONC = 30 mL MOM, Admission/Obs/Extended Recovery 0923 (Med Not Given - Provider: Chris duran RN - Reason: Loose stools) 0915 (Med Not Given - Provider: Kathy espinoza RN - Reason: Patient Refused) polyethylene glycol 3350 (MIRALAX) 0858 (Given - packet 17 g Provider: Chris 17 g (1 packet), Oral, DAILY, First dose ARAMNDO Roberson) on Fri10/28/22 at 1400, Until Discontinued, 8.5 GRAMS = 0.5 PACKET 17 GRAMS = 1 PACKET 34 GRAMS = 2 PACKETS 0924 (Med Not Given - Provider: Chris duran RN - Reason: Loose stools)212 (Med Not Given - Provider: Yelena Oviedo RN - Reason: Loose stools) 0915 (Med Not Given - Provider: Kathy espinoza RN - Reason: Patient Refused) senna/docusate (SENOKOT-S) tablet 1 0857 (Given - tablet Provider: Chris Leggett tablet, Oral, TWICE DAILY, First dose ARMANDO Roberson)203 1 (Given on Fri10/25/22 at 0100, Until - Provider: Delicia Zamarripa, Hold for loose stools. If ARMANDO Braden) patient unable to take tablet, give 10 mL of senna/docusate (SENOKOT-S) solution. Send [facility] message to pharmacy., If patient unable to take tablet, give 10 mL of senna/docusate (SENOKOT-S) solution., Admission/Obs/Extended Recovery 11/04/2022 11/05/2022 Medication Order 11/03/2022 dextromethorphan/guaiFENesin (ROBITUSSIN-DM) oral syrup 10 mL 10 mL, Oral, EVERY 6 HOURS PRN, Starting on 10/26/22 at 0652, Until Fri11/05/22 at 1437, Cough, [...] Have Count Last Ordered Date Been Administered aspirin EC tablet 81 mg 1 11/01/2022 enoxaparin (LOVENOX) syringe 40 mg 1 10/27/2022 ibuprofen (MOTRIN) tablet 600 mg 2 11/0110/30/2022 acetaminophen (TYLENOL EXTRA STRENGTH) 2 10/31/2022 tablet 1,000 mg carvediloL (COREG) tablet 12.5 mg 1 10/11 diphenhydrAMINE HCL (BENADRYL) injection 1 10/31/2022 25 mg fentaNYL citrate PF (SUBLIMAZE) 1 2021 injection 25-50 mcg haloperidol lactate (HALDOL) injection 1 1 10/31/2022 mg hydrALAZINE (APRESOLINE) tablet 20 mg 1 10/31/2022 lactated ringers infusion 1 10/31/2022 10/25/2022 oxyCODONE (ROXICODONE) tablet 5-10 mg 2 10/31/2022 traZODone (DESYREL) tablet 25 mg 1 10/31 ferrous gluconate tablet 324 mg 1 202110/25/2022 hydrALAZINE (APRESOLINE) injection 10 mg 2 10/30/2022 10/25/2022 labetaloL (NORMODYNE) injection 10 mg 2 10/30/2022 LORazepam (ATIVAN) tablet 0.25 mg 1 10/11 RP DX F-18 FDG injection 10 millicurie 1 10/30/2022 bisacodyL (DULCOLAX) rectal suppository 1 10/28/2022 10 mg iohexoL (OMNIPAQUE-300) 300 mg/mL 1 10/10 injection 60 mL 10/25/2022 lidocaine (LIDODERM) 5 % topical patch 1 2 10/28/2022 patch nitroglycerin(#) injection 1 10/28/2022 polyethylene glycol 3350 (MIRALAX) 1 packet 17 g traMADoL (ULTRAM) tablet 50 mg 1 022 verapamiL (ISOPTIN) injection 1 10/28/20 diphenhydrAMINE HCL (BENADRYL) 50 mg in 1 10/27/2022 dextrose 5% (D5W) 50 mL IVPB diphenhydrAMINE HCL (BENADRYL) capsule 1 10/27/2022 50 mg magnesium sulfate 1 g/D5W 100 mL IVPB 1 10/27/2022 prochlorperazine (COMPAZINE) injection 1 10/27/2022 10 mg dextromethorphan/guaiFENesin 1 2 (ROBITUSSIN-DM) oral syrup 10 mL iohexoL (OMNIPAQUE-350) 350 mg/mL 1 10/10 injection 70 mL oxyCODONE (ROXICODONE) tablet 2.5-5 mg 1 10/26/2022 sodium chloride 0.9 % infusion 1 10/2610/25/2022 sodium chloride PF 0.9% injection 50 mL 2 10/26/2022 acetaminophen (TYLENOL) tablet 650 mg 2 10/25/2022 atorvastatin (LIPITOR) tablet 80 mg 1 docusate (COLACE) capsule 100 mg 1 10/25 eucalyptus-menthoL (HALLS) lozenge 1 1 1 12/26/2021 lozenge fluticasone propionate (FLONASE) nasal 1 10/25/2022 spray 2 spray iohexoL (OMNIPAQUE-350) 350 mg/mL 1 10/10 injection 60 mL levETIRAcetam (KEPPRA) IV push 1,000 mg 1 10/25/2022 levETIRAcetam (KEPPRA) tablet 500 mg 2 1 12/26/2021 methocarbamoL (ROBAXIN) tablet 500 mg 1 10/25/2022 metoprolol tartrate (LOPRESSOR) tablet 1 10/25/2022 50 mg milk of magnesia (CONC) oral suspension 1 10/25/2022 10 mL nicotine (polacrilex) (COMMIT) lozenge 2 1 10/25/2022 mg ondansetron (ZOFRAN) injection 4 mg 1 perflutren lipid microspheres (DEFINITY) 1 10/25/2022 injection 1-10 Diluted mL senna/docusate (SENOKOT-S) tablet 1 1 tablet sodium chloride (SEA MIST) 0.65 % nasal 1 10/25/2022 spray 2 spray First Ordered Date Procedures Count Last Ordered [...] PUMP IV CONTROL UNIT W/MODULES 1 022 [facility] JES BED AIRFLOW PUMP 1 10/27/20 HEATING, MACHINE AK WITH PAD 1 2 [...] Date APPOINTMENT REQUEST: [facility] 1 11/05/2022 ([place]) APPOINTMENT REQUEST: NEUROSURGERY 2 10/11 First Ordered [...] Concerns Noted Time Assessment 11/05/2022 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
--- OUTSIDE RECORDS SUMMARY | 2022-11-05 14:59 | XMS REPORT | Encounter Summary ---
Author Author [facility] Organization [facility] Address Unknown Phone Unavailable Care Team Providers Care Director Safety Name Role Phone Jorge Luis Cuba MD PCP Reason for Visit * Reason Comments Office Visit Follow Up Assessment for SQUID trial * Consult, Test & Treat (Routine) - New Request Diagnoses / Procedures Referred By Contact Referred To Conta ct Specialty Neurosurgery Referral ID Status Reason Start Date Expiration Visits Vi sits Date Requested Authorized [id number] New Request 10/11/2022 10/11/2023 1 1 Encounter Details Care Team Description Date Type Department Cecilia Ramirez MD [address] [facility] [address] [place] [address] 10/15/2022 Nurse Only Neurosurgery: [facility] [place] [place] [address] [place] [address] Social History Date Tobacco Use Types Packs/Day Years Used Smoking Tobacco: Every Cigarettes 0.5 Day Smokeless Tobacco: Never Tobacco Cessation: Ready to Quit: Not As ked; Counseling Given: Not Answered Comments Alcohol Use Standard Drinks/Week Not Currently 0 (1 standard drink = 0.6 o z pure alcohol) Sex Assigned at Date Recorded Not on file Date Recorded COVID-19 Exposure Response 10/15/2022 8:18 AM HOME HEALTH CARE PROVIDER In the last 10 days, have you been in contact with N o / Unsure someone who was confirmed or suspected to have Coronavirus/COVID-19? documented as of this encounter Last Filed Vital Signs Reading Time Taken Comments Vital Sign 141/67 10/15/2022 8:28 AM HOME HEALTH CARE PROVIDER Blood Pressure 52 10/15/2022 8:28 AM HOME HEALTH CARE PROVIDER Pulse 36.7 C (98 F) 10/15/2022 8:28 AM HOME HEALTH CARE PROVIDER Temperature - - Respiratory Rate - - Oxygen Saturation - - Inhaled Oxygen Concentration 58.9 kg (129 lb 14.4 oz) 10/15/2022 8:28 AM HOME HEALTH CARE PROVIDER Weight 170.2 cm (5' 7") 10/15/2022 8:28 AM HOME HEALTH CARE PROVIDER Height 20.35 10/15/2022 8:28 AM HOME HEALTH CARE PROVIDER Body Mass Index documented in this encounter Functional Status Date of Assessment Functional Status Response 10/12/2022 Does the patient have a hearing impairment: [...] as of this encounter Miscellaneous Notes * Research - Carmelo Alatorre RN - 10/15/2022 8:30 AM CST Research Informed Consent Note NAME: Scot Bell :1940 A GE: 82 y.o. IRB Number: [id number] Consent Approval Dates: 04/22/2022-04/21/2023 Clinical research participation and research nature of the trial were discussed with subject. The subject was alert and oriented during consent discussion and w as accompanied by his daughter. Subject was informed that study is voluntary and he may withdraw consent at any time for any reason by notifying study team. Yeison dickinson purpose, procedures, benefits, risks and duration of the study, confidentia lity information and compensation were discussed. Alternatives to participation were discussed per consent form. Subject verbalized understanding. Subject was provided time to review the consent form. All questions asked were answered. Subject voiced desire to participate in the study and signed the info rmed consent form without coercion and undue influence. A copy of the signed co nsent was given to the subject as well as contact information for the study team . A copy of the consent form was e-mailed to [facility] ([facility]) for scanning into the subject's medical record. No research procedures took place prior to consenting. HEALTH CARE PROVIDER documented in this encounter Plan of Treatment Not on filedocumented as of this encounter Visit Diagnoses Not on filedocumented in this encounter Additional Health Concerns Noted Time Assessment 09/27/2022 8:16 AM HOME HEALTH CARE PROVIDER A fall risk assessment has been complet ed for the patient 09/27/2022 8:15 AM HOME HEALTH CARE PROVIDER PHQ-2 Depression Total Score: 0 documented as of this encounter Care Teams Start Date End Date Director Safety Relationship Specialty 09/10/22 Jorge Luis Cuba MD PCP - [address] [address] documented as of this encounter
--- OUTSIDE RECORDS SUMMARY | 2022-11-05 14:59 | XMS REPORT | Encounter Summary ---
Author Author [facility] Organization [facility] Address Unknown Phone Unavailable Care Team Providers Care Egg Worker Name Role Phone Jorge Luis Cuba MD PCP Reason for Referral * Consult, Test & Treat (Routine) - Authorized Diagnoses / Procedures Referred By Contact Referred To Conta ct Specialty Diagnoses Essential tremor Francisco Michel MD [address] [place] [address] Case Meadows MD [address] [facility] [address] [address] Neurosurgery Referral ID Status Reason Start Date Expiration Visits Vi sits Date Requested Authorized [id number] Authorized Specialty Services 09/10/2022 09/11/2023 1 1 Required Answer Question Focused Ultrasound Referral Reason: Reason for Visit * Reason Comments New Patient * Consult, Test & Treat (Routine) - Authorized Diagnoses / Procedures Referred By Contact Referred To Conta [facility] Specialty Diagnoses [place] [address] [facility] [address] [place] [address] Francisco Michel MD [address] [place] [address] Neurology Referral ID Status Reason Start Date Expiration Visits Vi sits Date Requested Authorized [id number] Authorized 01/11/2022 01/11/2023 1 1 Encounter Details Care Team Description Date Type Department Francisco Michel MD [address] [place] [address] Essential tremor (Primary Dx); Cognitive change 09/10/2022 Office Visit Neurology: [facility] [address] [place] [place] [id number] Social History Date Tobacco Use Types Packs/Day Years Used Smoking Tobacco: Every Cigarettes 0.5 Day Smokeless Tobacco: Never Comments Alcohol Use Standard Drinks/Week Not Currently 0 (1 standard drink = 0.6 o z pure alcohol) Sex Assigned at Date Recorded Not on file Date Recorded COVID-19 Exposure Response 09/10/2022 7:50 AM CDT In the last 10 days, have you been in contact with N o / Unsure someone who was confirmed or suspected to have Coronavirus/COVID-19? documented as of this encounter Last Filed Vital Signs Reading Time Taken Comments Vital Sign 130/73 09/10/2022 8:27 AM CDT Blood Pressure 52 09/10/2022 8:27 AM CDT Pulse - - Temperature - - Respiratory Rate - - Oxygen Saturation - - Inhaled Oxygen Concentration 61.3 kg (135 lb 3.2 oz) 09/10/2022 8:17 AM CDT Weight 167 cm (5' 5.75") 09/10/2022 8:17 AM CDT Height 21.99 09/10/2022 8:17 AM CDT Body Mass Index documented in this encounter Functional Status Date of Assessment Functional Status Response 09/10/2022 Does the patient have a hearing impairment: Yes 09/10/2022 Does the patient have a visual impairment: Yes 09/10/2022 Does the patient have impaired ambulation: No 09/10/2022 Does the patient have an activity of daily living Ye s (ADL) impairment: 09/10/2022 Does the patient have an instrumental activity of Ye s daily living (IADL) impairment: Date of Assessment Cognitive Status Response 09/10/2022 Does the patient have a cognitive impairment: No documented as of this encounter Progress Notes * Lolita Vega MD - 09/10/2022 8:00 AM CDT Date of Service: 09/10/2022 Subjective: Scot Bell is a 82 y.o. male. History of Present Illness The patient is right handed whose symptoms began at age 17 and his initial sympt om was tremor in his hand, probably his right hand, as he first noticed it when writing. He was diagnosed with Essential tremor in 1971 and presently complains of eating and handwriting as his main disability related to his tremor. His trem or has worsened over the past few decades, probably worse around late 1960s-sammy y . His tremor improves with alcohol and he has a family history of tremor in his father and one sister. Says he was on propanolol (Inderal) for some time, and was told to increase his medication after a workup at in 1971. However, after increasing the dose, his pulse was very low for 2 hours after, so he stopp ed taking the higher dose and went back to his previous dose. He last took propa nolol around 2007 b/c it was waking him up at night.He has taken "everything" in the past for his tremor, but cannot recall the names of these medications. One had a side effect of making him feel like he was drunk. Several didn't help. Symptoms Scale: Memory problems: Slight, not bothersome Hallucinations/delusions: None Depression: None Anxiety: None Apathy: None Impulsive behavior: None Nighttime sleep: Mild, wake up to go to bathroom Daytime sleepiness: None Vivid dreams: None REM sleep behavior disorder: None Restless leg syndrome: None Pain or muscle cramps: None Urination: No problems Constipation: None Dizziness or lightheadedness: None Tiredness/Fatigue: Mild, occasionally tired Falling: I have not fallen Personal care assistance: Moderate, I have some difficulty and need some help da devaughn Total Score: Total Score: 8 Assistive Devices: Assistive devices for getting around: None TREMOR DISABILITY: Speaking: Slight voice tremulousness, only when "nervous" Feeding with a spoon: Severely abnormal. Cannot feed with a spoon.if eating thi n or warm/hot foods. Only uses a spoon if something cold and thick. Drinking from a glass: Severely abnormal. Cannot drink from a glass or uses str aw or sippy cup. Hygiene: Moderately abnormal. Unable to do most fine tasks unless changes strat egy such as using two hands or using less affected hand. Dressing: Mildly abnormal. Able to do everything but has difficulty due to trem or. Pouring: Severely abnormal. Cannot pour. Carrying items, plates, trays, etc: Moderately abnormal. Uses strategies such a s holding tightly against body to carry. Using [place]: Moderately abnormal. Needs to use two hands or other strategies to put torres in lock. Writing: Severely abnormal. Cannot write. Working: Mildly abnormal. Tremor interferes with work; able to do everything, b ut with errors. Overall disability with the most affected task: Severely abnormal. Cannot do th e task. Social impact: Avoids participating in some social situations or professional me etings because of tremor. Review of Systems A complete ROS was performed and is negative except as documented above. Objective: aspirin EC 81 mg tablet Take 81 mg by mouth daily. Plus one extra prn atorvastatin (LIPITOR) 80 mg tablet Take 80 mg by mouth daily. metoprolol tartrate (LOPRESSOR) 50 mg tablet Take 50 mg by mouth twice daily . MULTIVITAMIN PO Take 1 capsule by mouth daily. Vitals: 09/10/22 0817 09/10/22 08 BP: 133/65 130/73 BP Source: Arm, Left Upper Arm, Left Upper Pulse: 52 52 PainSc: Zero Weight: 61.3 kg (135 lb 3.2 oz) Height: 167 cm (5' 5.75") Body mass index is 21.99 kg/m. Physical Exam Constitutional: Appears well-developed and well-nourished. No distress. HENT: Head: Normocephalic and atraumatic. Right Ear: External ear normal. Left Ear: External ear normal. Nose: Nose normal. Mouth/Throat: Oropharynx is clear and moist. No oropharyngeal exudate. Eyes: Conjunctivae and EOM are normal. Right eye exhibits no discharge. Left eye exhibits no discharge. No scleral icterus. Skin: Not diaphoretic. No active lesions NEUROLOGICAL EXAMINATION: Mental Status: Alert and Oriented. Visuospatial/Executive Points: 4/5 Naming Points: 3/3 Attention Points: 6/6 Language Points: 0/3 Abstraction Points: 1/2 Delayed Recall Points: 2/5 Orientation Points: 6/6 Education <or= 12 Years: 0/1 MOCA Score (out of 30): 22 Cranial Nerve Examination: II through XII were unremarkable. Motor Examination: Bulk of muscles and strength was unremarkable. There was no evidence of bradykinesia or rigidity. Sensory Examination: Unremarkable. Coordination: There is normal truncal stability. Tkapiz-kz-gnmvfo-nose testing shows dysmetria. He could arise from the chair with his arms folded. Gait: His gait was slowed, with normal stride length and amplitude, good heel t o toe movement. He appears unsteady, sometimes leaning towards the right and the n the left. Romberg sign was negative and positive. Tandem gait was Abnormal- h ad difficulty performing with unsteadiness and leaning towards one side of the o ther. Involuntary Movements: There was moderate head tremor, slight voice tremor, mil d face tremor. There was none resting tremor on the right side and no resting tr emor on the left side. There was moderate postural and marked kinetic tremor on the right side and moderate postural and marked kinetic tremor on the left side. His handwriting was markedly impaired. There was marked difficulty drawing the archimedes spiral. There were no other unusual movements at the present time. Deep tendon reflexes: Were decreased bilaterally at the biceps, triceps, brachi oradialis, knees and ankles. Geriatric Depression Scale: 0 suggesting no depression. Sullivan Sleepiness Scale: 4 suggesting no daytime drowsiness. PDQ39 suggest that the symptoms impact the Quality of Life as: PDQ 39 IMPACT Mobility Percent: 20 % ADL Percent: 75 % Emotional Percent: 0 % Social Stigma Percent: 25 % Social Support Percent: 0 % Cognition Percent: 0 % Communication Percent: 0 % Body Discomfort Percent: 0 % PDQ Total Percent: 19.23 % Essential Tremor Rating Scale: ETRS Total Score: 74 Assessment and Plan: Problem Essential Tremor Symptoms began in as teenager, initial symptoms was right hand tremor. Diagnose d with Essential tremor in 1971. Tremor improves with alcohol. There is family h istory of tremor. 09/10/2022 ETRS Total Score: 74 Quest Percent: Total Score (%): 32 % PDQ Total P ercent: 19.23 % Essential tremor Patient is a 82 y.o. year old male who presents with Essential tremor and on exa mination has postural and kinetic tremor on both sides along with a family histo ry of tremors and his tremors improve with alcohol. My assessment is that the pa tiealexandra most likely has Essential tremor and we discussed the diagnosis and progno sis in detail. He has medication resistant disabling tremor and is a reasonable candidate for focused ultrasound (FUS) of the thalamic nucleus. The risks and be nefits of surgery including the chance of 60-80% improvement in the targeted multani b was discussed with the patient. In addition the risks of surgery including int racranial bleed, stroke, weakness, numbness, worsening of cognition, post operat lyudmila confusion and, behavior changes were discussed. Cognitive change Patient denies any cognitive issues and we will monitor. The patient was seen and examined with attending physician, Dr. Francisco Michel. * Francisco Michel MD - 09/10/2022 8:00 AM CDT ATTESTATION I have personally interviewed and examined Scot Bell and reviewed the histor y, examination, impression, and plan of care as outlined by the resident. I pers onally participated in patient counseling and coordination of care. I agree wi th the assessment and plan as documented by the fellow, Dr Vega. Patient has long standing history of Essential tremor and has tried multiple med ications and is a reasonable candidate for focused ultrasound of VIM nucleus. Staff name: Francisco Michel MD Date: 09/10/2022 documented in this encounter Plan of Treatment Order Schedule Name Type Priority Associated Diag noses Ordered: 09/10/2022 AMB REFERRAL TO Outpatient Routine Essential trem or NEUROSURGERY Referral documented as of this encounter Visit Diagnoses Diagnosis Essential tremor - Primary Essential and other specified forms of tremor Cognitive change Other signs and symptoms involving cogn ition * Assessment & Plan Note - Francisco Michel MD - 09/10/2022 4:57 PM CDTAssociated Problem(s): Cognitive change Patient denies any cognitive issues and we will monitor. * Assessment & Plan Note - Lolita Vega MD - 09/10/2022 4:51 PM CDT Associated Problem(s): Essential tremor Patient is a 82 y.o. year old male who presents with Essential tremor and on exa mination has postural and kinetic tremor on both sides along with a family histo ry of tremors and his tremors improve with alcohol. My assessment is that the jesus rader most likely has Essential tremor and we discussed the diagnosis and progno sis in detail. He has medication resistant disabling tremor and is a reasonable candidate for focused ultrasound (FUS) of the thalamic nucleus. The risks and be nefits of surgery including the chance of 60-80% improvement in the targeted multani b was discussed with the patient. In addition the risks of surgery including int racranial bleed, stroke, weakness, numbness, worsening of cognition, post operat lyudmila confusion and, behavior changes were discussed. documented in this encounter Historical Medications * This list may reflect changes made after this encounter. Start Date End Date Medication Sig Dispensed Refills vitamins, multiple cap Take 1 0 capsule by mouth daily. 10/27/2022 aspirin 325 mg tablet Take 81 mg by 0 mouth daily. Plus one extra prn added in this encounter Additional Health Concerns Noted Time Assessment 09/10/2022 8:23 AM CDT A fall risk assessment has been complet ed for the patient 09/10/2022 8:23 AM CDT PHQ-2 Depression Total Score: 0 documented as of this encounter Care Teams Start Date End Date Egg Worker Relationship Specialty 09/10/22 Jorge Luis Cuba MD PCP - [address] [address] documented as of this encounter
--- OUTSIDE RECORDS SUMMARY | 2022-11-05 14:59 | XMS REPORT | Encounter Summary ---
Author Author [facility] Organization [facility] Address Unknown Phone Unavailable Care Team Providers Care Mortgage Loan Closer Name Role Phone Jorge Luis Cuba MD PCP Reason for Visit * Auth/Cert (Routine) Diagnoses / Procedures Referred By Contact Referred To Conta ct Specialty Diagnoses SDH (subdural hematoma) Referral ID Status Reason Start Date Expiration Visits Vi sits Date Requested Authorized [id number] 1 1 Encounter Details Care Team Description Date Type Department Tyler Hart MD [address] [place] [address] Elizabeth Harkins CRNA [id number] [place] [address] 10/29/2022 Anesthesia Cardiology:[facility] 4000 [facility]. [address], [address] [place] [phone] Anesthesia Record Responsible Anesthesiologist Anesthesia Start Time Anesthesi a Stop Time Procedure Name Tyler Hart MD 10/29/22 1447 10/29/22 1532 TRANSESOPHAGEAL ECHO Date Time Event Comment 1425 AN Equip Check 2021 143 1447 Anes Start 1447 An Start Data 1447 Start Supplemental O2 1451 Anesthesia Ready 1531 an stop data 1532 An Stop I completed my SBAR handoff to the receiving nurse. Meds Name Total lidocaine PF 2% 100mg/5mL vial 40 mg propofol (DIPRIVAN) 200 mg/ 20 mL 60 mg injection (VIAL) propofol (DIPRIVAN) infusion 222.3 mg glycopyrrolate (ROBINUL) 0.2 mg ePHEDrine inj 10 mg sodium chloride 0.9% (500mL) 300 mL * Name O2 * No blood administrations on file. Removal Type Details Placement 11/02/22 1703 by Chris Roberson RN Peripheral 10/24/22; 2013; RN; R; Antecubital; 10/24/222013 by TESS Cheng G; No; 1; 11/02/22; 1703 ARMANDO Jha 10/30/22 07 by Chris Roberson RN Peripheral 10/27/22; 2051; IV Therapy; Forearm; 10/27/222051 by TESS Lynn G; 0 cm; No; Ultrasound; 1 (blood drawn OBINNA Robledo with PIV start. no printer available); 1.25 inches; 10/30/22; 0700 11/02/22 1703 by Chris Roberson RN Peripheral 10/28/22; 0817; Provider; L; Hand; 18 G ; 10/28/22 0817 by TESS Harkins No; 1; 11/02/22; 1703 Elizabeth Segundo, MUSHROOM PRESS OPERATOR 11/05/22 1237 by Rashawn, Junk Removal Specialist Puncture 10/28/22; 0843; Right; (ulnar); 10/28 0843 by Rafat, Wound 11/05/22; 1237 ARMANDO Luna (Sheath) documented in this encounter Social History Date Tobacco Use Types Packs/Day Years Used Smoking Tobacco: Every Cigarettes 0.5 Day Smokeless Tobacco: Never Comments Alcohol Use Standard Drinks/Week Not Currently 0 (1 standard drink = 0.6 o z pure alcohol) Sex Assigned at Date Recorded Not on file Date Recorded COVID-19 Exposure Response 10/24/2022 5:04 PM SALES SUPPORT ADVISOR In the last 10 days, have you [...] OR Notes * Anesthesia Postprocedure Evaluation - Tyler Hart MD - 10/29/2022 3:50 PM CST Post-Anesthesia Evaluation Name: Scot Bell : 1940 Age: 82 y.o. Sex : male Procedure Information Anesthesia Start Date/Time: 10/29/22 1447 Scheduled providers: Tyler Hart MD Procedure: TRANSESOPHAGEAL ECHO Location: [facility] Post-Anesthesia Vitals BP: 138/42 (10/29 1540) Pulse: 62 (10/29 1540) Respirations: 18 PER MINUTE (10/29 1540) SpO2: 96 % (10/29 1540) O2 Device: None (Room air) (10/29 1540) Height: 170.2 cm (5' 7.01") (10/29 1540) Vitals Value Taken Time BP 138/42 10/29/22 1540 Temp Pulse 62 10/29/22 1540 Respirations 18 PER MINUTE 10/29/22 1540 SpO2 96 % 10/29/22 1540 O2 Device None (Room air) 10/29/22 1540 ABP ART BP Post Anesthesia Evaluation Note Evaluation location: pre/post Patient participation: recovered; patient unable to participate at baseline (enc ephalopathic pre-op) Level of consciousness: alert Pain score: 1 Pain management: adequate Hydration: normovolemia Temperature: 36.0C - 38.4C Airway patency: adequate Perioperative Events Post-op nausea and vomiting: no PONV Postoperative Status Cardiovascular status: hemodynamically stable Respiratory status: spontaneous ventilation Additional comments: Post-Anesthesia Evaluation Attestation: The indicated post-anethesia care was pr ovided. Staff name: Tyler Hart MD Perioperative Events There were no known notable events for this encounter. S SUPPORT ADVISOR * Anesthesia Preprocedure Evaluation - Tyler Hart MD - 10/29/2022 2:13 PM CST Anesthesia Pre-Procedure Evaluation Name: Scot Bell : 1940 Age: 82 y.o. 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 Physical Assessment Vital Signs (last filed in past 24 hours): BP: 128/68 (10/29 1100) Temp: 36.5 C (97.7 F) (10/29 1100) Pulse: 49 (10/29 1100) Respirations: 18 PER MINUTE (10/29 1100) SpO2: 95 % (10/29 1100) O2 Device: None (Room air) (10/29 1100) Patient History No Known Allergies Current Medications [...] reviewed Nursing notes reviewed Pertinent labs reviewed No history of anesthetic complications No family history of anesthetic complications Airway - negative Pulmonary Current smoker ( 1/2 ppd x60 years); patient did not smoke on day of surgery tobacco use recent dx of lung mass - scheduled for bronch and PET scan Cardiovascular Beta Candis therapy: Yes Beta blockers within 24 hours: Yes Hypertension, well controlled Coronary artery disease PTCA ( 2018) PVD Hyperlipidemia 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 GI/Hepatic/Renal No hx of liver disease No renal disease Neuro/Psych CVA ( left sided weakness), residual symptoms Neuropathy ( bilat feet) Essential tremor Musculoskeletal Back pain Arthritis Endocrine/Other Anemia Constitution - negative Physical Exam Airway [...] 10/29/2022 MAGNUS 16 10/29/2022 AMC 0.74 10/29/2022 EOSA 0 10/29/2022 ABC 0.02 10/29/2022 MCV 100.3 10/29/2022 MCH 34.1 10/29/2022 MCHC 34.0 10/29/2022 MPV 9.5 10/29/2022 RDW 14.4 10/29/2022 General Chemistry: Lab Results Component Value Date NA 141 10/29/2022 K 3.9 10/29/2022 CL 106 10/29/2022 CO2 24 10/29/2022 GAP 11 10/29/2022 BUN 26 10/29/2022 CR 1.04 10/29/2022 GLU 90 10/29/2022 CA 8.7 10/29/2022 ALBUMIN 4.0 10/24/2022 MG 2.2 10/24/2022 TOTBILI 0.4 10/24/2022 Coagulation: Lab Results Component Value Date PT 13.5 10/24/2022 INR 1.2 10/24/2022 Echo 10/15/22 Interpretation Summary 1. Normal LV size and hyperdynamic systolic function. LVEF 82% 2. Mild LVH with grade 2 moderate left ventricular diastolic dysfunction. 3. Normal RV size and systolic function. 4. 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 Gradients measured across th e aortic valve were elevated with mean gradient of 43 mmHg and peak velocity of 5 m/s. However, there is eccentric mitral regurgitation jet that may be contami nating these tracings. The flow across the bioprosthetic aortic valve does not appear to be significantly turbulent. LVOT VTI was elevated and aliasing due to the hyperdynamic LV function of 82%. Therefore it was not possible to obtain D or valve area. Recommend ANSELMO to better evaluate aortic valve function if cli nically indicated. There is mild eccentric aortic valve regurgitation 5. Moderate eccentric mitral valve regurgitation. 6. Mild to moderate tricuspid valve regurgitation 7. Estimated peak systolic PA pressure of 28 mmHg No previous echo for comparison. Anesthesia Plan ASA score: 3 Plan: MAC NPO status: acceptable Informed Consent Anesthetic plan and risks discussed with patient (daughter). Use of blood products discussed with patient Blood Consent: consented Plan discussed with: anesthesiologist and MUSHROOM PRESS OPERATOR. S SUPPORT ADVISOR documented in this encounter Plan of Treatment Not on filedocumented as of this encounter Goals Goal Patient Associated Recent Progress Patient-Stat Aut hor Goal Type Problems ed? Recover from illness Hospital On track (10/25/2022 Yes Pina Flores, 4:08 PM SALES SUPPORT ADVISOR) RN Note: "To get better and go home" documented as of this encounter Visit Diagnoses Not on filedocumented in this encounter Administered Medications Action Date Dose Rate Site Medication Order MAR Action 10/29/2022 3:24 PM SALES SUPPORT ADVISOR 10 mg ePHEDrine injection Given Intravenous, INTRA-PROCEDURE MED, Starting on Fri10/29/22 at 1524, Until Fri10/29/22 at 1532, Anesthesia Intra-op 10/29/2022 2:47 PM SALES SUPPORT ADVISOR 0.2 mg glycopyrrolate (ROBINUL) injection Given Intravenous, INTRA-PROCEDURE MED, Starting on e 10/29/22 at 1447, Until e 10/29/22 at 1532, Anesthesia Intra-op 10/29/2022 2:48 PM SALES SUPPORT ADVISOR 40 mg lidocaine PF 20 mg/mL (2 %) injection Given Intravenous, INTRA-PROCEDURE MED, Starting on 10/29/22 at 1448, Until 10/29/22 at 1532, Anesthesia Intra-op 10/29/2022 3:22 PM SALES SUPPORT ADVISOR 80 mcg/kg/min 28.08 mL/hr propofol (DIPRIVAN) infusion Dose/Rate 20 mL, Intravenous, INTRA-PROCEDURE Change MED(CONT), Starting on Fri10/29/22 at 1448, Until Fri10/29/22 at 1532, Anesthesia Intra-op 100 mcg/kg/min 35.1 mL/hr Dose/Rate Change 10/29/2022 2:52 PM SALES SUPPORT ADVISOR 80 mcg/kg/min 28.08 mL/hr Given - New Bag 10/29/2022 2:48 PM SALES SUPPORT ADVISOR 10/29/2022 2:52 PM SALES SUPPORT ADVISOR 20 mg propofol (DIPRIVAN) injection Given Intravenous, INTRA-PROCEDURE MED, Starting on Fri10/29/22 at 1448, Until Fri10/29/22 at 1532, Anesthesia Intra-op 40 mg Given 10/29/2022 2:48 PM SALES SUPPORT ADVISOR 10/29/2022 2:47 PM SALES SUPPORT ADVISOR sodium chloride 0.9 % infusion Given - New Intravenous, INTRA-PROCEDURE MED(CONT), Bag Starting on Fri10/29/22 at 1447, Until Fri10/29/22 at 1532, Anesthesia Intra-op documented in this encounter Additional Health Concerns Noted Time Assessment 10/29/2022 7:15 AM SALES SUPPORT ADVISOR A fall risk assessment has been complet ed for the patient 09/27/2022 8:15 AM SALES SUPPORT ADVISOR PHQ-2 Depression Total Score: 0 documented as of this encounter Care Teams Start Date End Date Mortgage Loan Closer Relationship Specialty 09/10/22 Jorge Luis Cuba MD PCP - General [address] [address] documented as of this encounter
--- OUTSIDE RECORDS SUMMARY | 2022-11-05 14:59 | XMS REPORT | Encounter Summary ---
Author Author [facility] Organization [facility] Address Unknown Phone Unavailable Care Team Providers Care Glassine Machine Tender Name Role Phone Jorge Luis Cuba MD PCP Reason for Visit * Auth/Cert (Routine) Diagnoses / Procedures Referred By Contact Referred To Conta ct Specialty Diagnoses SDH (subdural hematoma) Referral ID Status Reason Start Date Expiration Visits Vi sits Date Requested Authorized [id number] 1 1 Encounter Details Care Team Description Date Type Department Portillo March MD [address] [place] [address] 10/27/2022 Hospital Vascular Access Tea m: Encounter Main [place], [facility] 4000 [facility]. [address], [address] [place] [address] Social History Date Tobacco Use Types Packs/Day Years Used Smoking Tobacco: Every Cigarettes 0.5 Day Smokeless Tobacco: Never Comments Alcohol Use Standard Drinks/Week Not Currently 0 (1 standard drink = 0.6 o z pure alcohol) Sex Assigned at Date Recorded Not on file Date Recorded COVID-19 Exposure Response 10/24/2022 5:04 PM TELEPHONIC NURSE In the last 10 days, have you [...] impairment: No documented as of this encounter Medications at Time of Discharge [...] Take 1 0 capsule by mouth daily. 07/29/2022 11/05/2022 metoprolol tartrate Take 50 mg by 0 (LOPRESSOR) 50 mg tablet mouth twice daily. documented as of this encounter Discharge Disposition Code Departure Means Destination Disposition Home Home or Self Care documented in this encounter Plan of Treatment Not on filedocumented as of this encounter Goals Goal Patient Associated Recent Progress Patient-Stat Aut hor Goal Type Problems ed? Recover from illness Hospital On track (10/25/2022 Yes Pina Flores, 4:08 PM TELEPHONIC NURSE) RN Note: "To get better and go home" documented as of this encounter Procedures Comments Procedure Name Priority Date/Time Associated Diag nosis CONSULT VASCULAR ACCESS Routine 10/27/2022 TEAM 8:22 PM TELEPHONIC NURSE documented in this encounter Visit Diagnoses Not on filedocumented in this encounter Orders First Ordered Date Procedures Count Last Ordered Date CONSULT VASCULAR ACCESS TEAM 1 2 documented in this encounter Additional Health Concerns Noted Time Assessment 10/27/2022 10:38 PM TELEPHONIC NURSE A fall risk assessment has been complet ed for the patient 09/27/2022 8:15 AM TELEPHONIC NURSE PHQ-2 Depression Total Score: 0 documented as of this encounter Care Teams Start Date End Date Glassine Machine Tender Relationship Specialty 09/10/22 Jorge Luis Cuba MD PCP - [address] [address] documented as of this encounter
--- OUTSIDE RECORDS SUMMARY | 2022-11-05 14:59 | XMS REPORT | Encounter Summary ---
Author Author [facility] Organization [facility] Address Unknown Phone Unavailable Care Team Providers Care Punch Press Operator Name Role Phone Jorge Luis Cuba MD PCP Encounter Details Care Team Description Date Type Department Clyde Rogers MD [address] [place] [address] ERRONEOUS ENCOUNTER--DISREGARD (Primary Dx) 10/10/2022 Orders Only Neurosurgery: Main [place], [address], [address] [place] [address] Social History Date Tobacco Use Types Packs/Day Years Used Smoking Tobacco: Every Cigarettes 0.5 Day Smokeless Tobacco: Never Comments Alcohol Use Standard Drinks/Week Not Currently 0 (1 standard drink = 0.6 o z pure alcohol) Sex Assigned at Date Recorded Not on file Date Recorded COVID-19 Exposure Response 09/27/2022 7:41 AM CORPORATE ATTORNEY In the last 10 days, have you been in contact with N o / Unsure someone who was confirmed or suspected to have Coronavirus/COVID-19? documented as of this encounter Functional Status Date of Assessment Functional Status Response 09/27/2022 Does the patient have a hearing impairment: Yes 09/27/2022 Does the patient have a visual [...] filedocumented as of this encounter Visit Diagnoses Diagnosis ERRONEOUS ENCOUNTER--DISREGARD - Primar y documented in this encounter Additional Health Concerns Noted Time Assessment 09/27/2022 8:16 AM CORPORATE ATTORNEY A fall risk assessment has been complet ed for the patient 09/27/2022 8:15 AM CORPORATE ATTORNEY PHQ-2 Depression Total Score: 0 documented as of this encounter Care Teams Start Date End Date Punch Press Operator Relationship Specialty 09/10/22 Jorge Luis Cuba MD PCP - [address] [address] documented as of this encounter
--- OUTSIDE RECORDS SUMMARY | 2022-11-05 14:59 | XMS REPORT | Encounter Summary ---
Author Author [facility] Organization [facility] Address Unknown Phone Unavailable Care Team Providers Care Calcine Furnace Tender Name Role Phone Jorge Luis Cuba MD PCP Reason for Visit * Reason Onset Date Comments Other 10/09/2022 Encounter Details Care Team Description Date Type Department Clyde Rogers MD [address] [place], [place] [id number] Other 10/09/2022 Telephone Neurosurgery: Main [place], [address], [address] [place] [address] Social History Date Tobacco Use Types Packs/Day Years Used Smoking Tobacco: Every Cigarettes 0.5 Day Smokeless Tobacco: Never Comments Alcohol Use Standard Drinks/Week Not Currently 0 (1 standard drink = 0.6 o z pure alcohol) Sex Assigned at Date Recorded Not on file Date Recorded COVID-19 Exposure Response 09/27/2022 7:41 AM SPINAL SURGEON In the last 10 days, have you [...] as of this encounter Miscellaneous Notes * Telephone Encounter - Lorrie Sorto RN - 10/09/2022 12:44 PM CST This RN received call from Scot Hsieh's dtr. She reports that she has multipl e questions still for Dr Rogers. She has questions in regards to stopping aspir in, possible fall and eating difficulties. This RN advised pt to keep appt. AL SURGEON documented in this encounter Plan of Treatment Not on filedocumented as of this encounter Visit Diagnoses Not on filedocumented in this encounter Additional Health Concerns Noted Time Assessment 09/27/2022 8:16 AM SPINAL SURGEON A fall risk assessment has been complet ed for the patient 09/27/2022 8:15 AM SPINAL SURGEON PHQ-2 Depression Total Score: 0 documented as of this encounter Care Teams Start Date End Date Calcine Furnace Tender Relationship Specialty 09/10/22 Jorge Luis Cuba MD PCP - [address] [address] documented as of this encounter
--- OUTSIDE RECORDS SUMMARY | 2022-11-05 14:59 | XMS REPORT | Encounter Summary ---
Author Author [facility] Organization [facility] Address Unknown Phone Unavailable Care Team Providers Care Websphere Commerce Architect Name Role Phone Jorge Luis Cuba MD PCP Encounter Details Care Team Description Date Type Department 09/27/2022 Travel Social History Date Tobacco Use Types Packs/Day Years Used Smoking Tobacco: Every Cigarettes 0.5 Day Smokeless Tobacco: Never Comments Alcohol Use Standard Drinks/Week Not Currently 0 (1 standard drink = 0.6 o z pure alcohol) Sex Assigned at Date Recorded Not on file Date Recorded COVID-19 Exposure Response 09/27/2022 7:41 AM PATENT LAWYER In the last 10 days, have you [...] Concerns Noted Time Assessment 09/27/2022 8:16 AM PATENT LAWYER A fall risk assessment has been complet ed for the patient 09/27/2022 8:15 AM PATENT LAWYER PHQ-2 Depression Total Score: 0 documented as of this encounter Care Teams Start Date End Date Websphere Commerce Architect Relationship Specialty 09/10/22 Jorge Luis Cuba MD PCP - General Family [address] [place] [address], [place] [address] documented as of this encounter
--- OUTSIDE RECORDS SUMMARY | 2022-11-05 14:59 | XMS REPORT | Encounter Summary ---
Author Author [facility] Organization [facility] Address Unknown Phone Unavailable Care Team Providers Care Peer Financial Counselor Name Role Phone Jorge Luis Cuba MD PCP Reason for Referral * Radiology Services (Routine) - Authorized Diagnoses / Procedures Referred By Contact Referred To Conta ct Specialty Diagnoses Essential tremor Procedures CT HEAD WO CONTRAST Clyde Rogers MD [address] [place] [address], [address] [place] [phone] Radiology Referral ID Status Reason Start Date Expiration Visits Vi sits Date Requested Authorized [id number] Authorized 10/10/2022 10/10/2023 1 1 LIAN JAIL OFFICER Reason for Visit * Radiology Services (Routine) - Authorized Diagnoses / Procedures Referred By Contact Referred To Conta ct Specialty Diagnoses Essential tremor Procedures CT HEAD WO CONTRAST Clyde Rogers MD [address] [place] [address], [address] [place] [address] Radiology Referral ID Status Reason Start Date Expiration Visits Vi sits Date Requested Authorized [id number] Authorized 10/10/2022 10/10/2023 1 1 Encounter Details Care Team Description Date Type Department Clyde Rogers MD [address] [place], [place] [id number] 10/10/2022 Hospital Imaging, CT: [facility] [place], Encounter [facility] [address] [facility]. [address], [address] [place] [address] Social History Date Tobacco Use Types Packs/Day Years Used Smoking Tobacco: Every Cigarettes 0.5 Day Smokeless Tobacco: Never Comments Alcohol Use Standard Drinks/Week Not Currently 0 (1 standard drink = 0.6 o z pure alcohol) Sex Assigned at Date Recorded Not on file Date Recorded COVID-19 Exposure Response 10/10/2022 3:06 PM CIVILIAN JAIL OFFICER In the last 10 days, have you [...] Date End Date Medication Sig Dispensed Refills 07/29/2022 atorvastatin (LIPITOR) 80 Take 80 mg by 0 mg tablet mouth daily. vitamins, multiple cap Take 1 0 capsule by mouth daily. 10/27/2022 aspirin 325 mg tablet Take 81 mg by 0 mouth daily. Plus one extra prn 07/29/2022 11/05/2022 metoprolol tartrate Take 50 mg by 0 (LOPRESSOR) 50 mg tablet mouth twice daily. documented as of this encounter Discharge Disposition Code Departure Means Destination Disposition Home Home or Self Care documented in this encounter Plan of Treatment Not on filedocumented as of this encounter Procedures Comments Procedure Name Priority Date/Time Associated Diag nosis CT HEAD WO CONTRAST Routine 10/10/2022 Essential tremor 3:45 PM CIVILIAN JAIL OFFICER documented in this encounter Results * CT HEAD WO CONTRAST (10/10/2022 3:45 PM CIVILIAN JAIL OFFICER) Modality Anatomical Region Laterality Computed Tomography Head Anatomical Location / Laterality Collection Method / Volume Eva ection Time Received Time Specimen (Source) 10/10/2022 3:51 PM CIVILIAN JAIL OFFICER Impressions 10/10/2022 3:58 PM CIVILIAN JAIL OFFICER 1. Similar appearance of mixed density right cerebral convexity subdural hemorrhage measuring up to 12 mm with right cerebral hemispheric mass effect and approximately 4 mm of leftward midline shift. 2. Mild patchy hypodensities within th e supratentorial white matter, likely secondary to chronic microvascular ischemic changes. Finalized by Hunter Ferris M.D. on 10/10/2022 3:58 PM. Dictated by Hunter Ferris M.D. on 10/10/2022 3:51 PM. Narrative 10/10/2022 3:58 PM CIVILIAN JAIL OFFICER EXAM: CT HEAD HISTORY: Essential tremor. Follow-up subdural hemorrhage. TECHNIQUE: Multiple contiguous axial images were obtained of the brain without intravenous contrast. COMPARISON: Neuronavigational CT head from 09/27/2022. FINDINGS: Redemonstration of a mixed density right cerebral convexity subdural hemorrhage measuring up to 12 mm (coronal image 34) with right cerebral mass effect. There is unchanged approximately 4 mm leftward midline shift measured at the septum pellucidum. There are mild patchy hypodensities within the supratentorial white matter. No hydrocephalus. The basal cisterns are patent. The mastoid air cells and visualized paranasal sinuses are well-aerated. Bilateral lens replacements. Procedure Note Hunter Ferris MD - 10/10/2022 EXAM: CT HEAD HISTORY: Essential tremor. Follow-up subdural hemorrhage. TECHNIQUE: Multiple contiguous axial images were obtained of the brain without intravenous contrast. COMPARISON: Neuronavigational CT head from 09/27/2022. FINDINGS: Redemonstration of a mixed density right cerebral convexity subdural hemorrhage measuring up to 12 mm (coronal image 34) with right cerebral mass effect. There is unchanged approximately 4 mm leftward midline shift measured at the septum pellucidum. There are mild patchy hypodensities within the supratentorial white matter. No hydrocephalus. The basal cisterns are patent. The mastoid air cells and visualized paranasal sinuses are well-aerated. Bilateral lens replacements. IMPRESSION 1. Similar appearance of mixed density right cerebral convexity subdural hemorrhage measuring up to 12 mm with right cerebral hemispheric mass effect and approximately 4 mm of leftward midline shift. 2. Mild patchy hypodensities within the supratentorial white matter, likely secondary to chronic microvascular ischemic changes. Finalized by Hunter Ferris M.D. on 10/10/2022 3:58 PM. Dictated by Hunter Ferris M.D. on 10/10/2022 3:[address] ORDERABLES documented in this encounter Visit Diagnoses Diagnosis Essential tremor Essential and other specified forms of tremor documented in this encounter Additional Health Concerns Noted Time Assessment 09/27/2022 8:16 AM CIVILIAN JAIL OFFICER A fall risk assessment has been complet ed for the patient 09/27/2022 8:15 AM CIVILIAN JAIL OFFICER PHQ-2 Depression Total Score: 0 documented as of this encounter Care Teams Start Date End Date Peer Financial Counselor Relationship Specialty 09/10/22 Jorge Luis Cuba MD PCP - [address] [address] documented as of this encounter
--- OUTSIDE RECORDS SUMMARY | 2022-11-05 14:59 | XMS REPORT | Encounter Summary ---
Author Author [facility] Organization [facility] Address Unknown Phone Unavailable Care Team Providers Care Room Worker Name Role Phone Jorge Luis Cuba MD PCP Reason for Referral * Radiology Services (Routine) - Authorized Diagnoses / Procedures Referred By Contact Referred To Conta ct Specialty Diagnoses Essential tremor Procedures CT HEAD WO CONTRAST Clyde Rogers MD [address] [place] [address], [address] [place] [phone] Radiology Referral ID Status Reason Start Date Expiration Visits Vi sits Date Requested Authorized [id number] Authorized 09/27/2022 09/27/2023 1 1 EL OILER Reason for Visit * Radiology Services (Routine) - Authorized Diagnoses / Procedures Referred By Contact Referred To Conta ct Specialty Diagnoses Essential tremor Procedures CT HEAD WO CONTRAST Clyde Rogers MD [address] [place] [address], [address] [place] [address] Radiology Referral ID Status Reason Start Date Expiration Visits Vi sits Date Requested Authorized [id number] Authorized 09/27/2022 09/27/2023 1 1 Encounter Details Care Team Description Date Type Department Clyde Rogers MD [address] [place], [place] [id number] 09/27/2022 Hospital Imaging, CT: [facility] [place], Encounter [facility] [address] Includes [facility]. [address] 2, [address] [place] [address] Social History Date Tobacco Use Types Packs/Day Years Used Smoking Tobacco: Every Cigarettes 0.5 Day Smokeless Tobacco: Never Comments Alcohol Use Standard Drinks/Week Not Currently 0 (1 standard drink = 0.6 o z pure alcohol) Sex Assigned at Date Recorded Not on file Date Recorded COVID-19 Exposure Response 09/27/2022 7:41 AM SHOVEL OILER In the last 10 days, have you [...] Diag nosis CT HEAD WO CONTRAST Routine 09/27/2022 Essential tremor 9:57 AM SHOVEL OILER documented in this encounter Results * CT HEAD WO CONTRAST (09/27/2022 9:57 AM SHOVEL OILER) Modality Anatomical Region Laterality Computed Tomography Head Anatomical Location / Laterality Collection Method / Volume Eva ection Time Received Time Specimen (Source) 09/27/2022 10:32 AM SHOVEL OILER Impressions 09/27/2022 10:47 AM SHOVEL OILER 1. Neuronavigational CT of the head de monstrating mixed density right cerebral convexity subdural hemorrhage measuring up to 12 mm with approximately 4 mm of leftward midline shift. Findings sent and acknowledged by Dr. Clyde Rogers via secure Voalte message on 09/27/2022 10:39 AM. Finalized by Hunter Ferris M.D. on 09/27/2022 10:47 AM. Dictated by Hunter Ferris M.D. on 09/27/2022 10:32 AM. Narrative 09/27/2022 10:47 AM SHOVEL OILER EXAM: CT HEAD (NEURONAVIGATIONAL) HISTORY: Presurgical planning. Essential tremor. TECHNIQUE: Multiple contiguous axial images were obtained of the brain according to treatment planning protocol. COMPARISON: None FINDINGS: Evaluation of the parenchyma is limited by neuronavigational technique. There is a mixed density right cerebral convexity subdural hemorrhage measuring up to 12 mm with right cerebral mass effect. There is approximately 4 mm leftward midline shift measured at the septum pellucidum. The ventricles and subarachnoid spaces are normal in size and configuration. The basal cisterns are patent. The mastoid air cells and visualized paranasal sinuses are well-aerated. Bilateral lens replacements. Procedure Note Hunter Ferris MD - 09/27/2022 EXAM: CT HEAD (NEURONAVIGATIONAL) HISTORY: Presurgical planning. Essential tremor. TECHNIQUE: Multiple contiguous axial images were obtained of the brain according to treatment planning protocol. COMPARISON: None FINDINGS: Evaluation of the parenchyma is limited by neuronavigational technique. There is a mixed density right cerebral convexity subdural hemorrhage measuring up to 12 mm with right cerebral mass effect. There is approximately 4 mm leftward midline shift measured at the septum pellucidum. The ventricles and subarachnoid spaces are normal in size and configuration. The basal cisterns are patent. The mastoid air cells and visualized paranasal sinuses are well-aerated. Bilateral lens replacements. IMPRESSION 1. Neuronavigational CT of the head dem onstrating mixed density right cerebral convexity subdural hemorrhage measuring up to 12 mm with approximately 4 mm of leftward midline shift. Findings sent and acknowledged by Dr. Clyde Rogers via secure Voalte message on 09/27/2022 10:39 AM. Finalized by Hunter Ferris M.D. on 09/27/2022 10:47 AM. Dictated by Hunter Ferris M.D. on 09/27/2022 10:[address] ORDERABLES MD documented in this encounter Visit Diagnoses Diagnosis Essential tremor Essential and other specified forms of tremor documented in this encounter Additional Health Concerns Noted Time Assessment 09/27/2022 8:16 AM SHOVEL OILER A fall risk assessment has been complet ed for the patient 09/27/2022 8:15 AM SHOVEL OILER PHQ-2 Depression Total Score: 0 documented as of this encounter Care Teams Start Date End Date Room Worker Relationship Specialty 09/10/22 Jorge Luis Cuba MD PCP - [address] [address] documented as of this encounter
--- OUTSIDE RECORDS SUMMARY | 2022-11-05 14:59 | XMS REPORT | Encounter Summary ---
Author Author [facility] Organization [facility] Address Unknown Phone Unavailable Care Team Providers Care Hydro Generation Manager Name Role Phone Jorge Luis Cuba MD PCP Reason for Referral * Radiology Services (Routine) - New Request Diagnoses / Procedures Referred By Contact Referred To Conta ct Specialty Diagnoses Subdural hematoma Procedures CT HEAD WO CONTRAST Portillo March MD [address] [place] [address] Referral ID Status Reason Start Date Expiration Visits Vi sits Date Requested Authorized [id number] New Request 10/24/2022 10/24/2023 1 1 E SETTER Encounter Details Care Team Description [place] [address] [place] [address] Subdural hematoma (Primary Dx) 10/24/2022 Orders Only Neurosurgery: Main [place], [address], [address] [place] [id number] Social History Date Tobacco Use Types Packs/Day Years Used Smoking Tobacco: Every Cigarettes 0.5 Day Smokeless Tobacco: Never Comments Alcohol Use Standard Drinks/Week Not Currently 0 (1 standard drink = 0.6 o z pure alcohol) Sex Assigned at Date Recorded Not on file Date Recorded COVID-19 Exposure Response 10/15/2022 8:18 AM VALVE SETTER In the last 10 days, have you [...] as of this encounter Progress Notes * Angelica Naik, RN - 10/24/2022 10:16 AM CST Called patient's daughter, Мария, to coordinate new order for CTH wo contrast per Dr March. Used 2 patient identifiers. Мария requested imaging to be done at [facility]. Called [facility] and spoke to radiology department who stated patient would be able to come for CTH at any time. Order faxed and reques toby images be clouded to [facility] and report faxed back to [facility] once complete. Called Мария back, using 2 patient identifiers, and informed her of open availabi lity at [facility]. They will obtain after 11:30. E SETTER documented in this encounter Plan of Treatment Order Schedule Name Type Priority Associated Diag noses Expected: 10/24/2022 (Approximate), Expi res: 10/24/2023 CT HEAD WO CONTRAST Imaging Routine Subdural h ematoma documented as of this encounter Visit Diagnoses Diagnosis Subdural hematoma - Primary Subdural hemorrhage documented in this encounter Additional Health Concerns Noted Time Assessment 09/27/2022 8:16 AM VALVE SETTER A fall risk assessment has been complet ed for the patient 09/27/2022 8:15 AM VALVE SETTER PHQ-2 Depression Total Score: 0 documented as of this encounter Care Teams Start Date End Date Hydro Generation Manager Relationship Specialty 09/10/22 Jorge Luis Cuba MD PCP - [address] [address] documented as of this encounter
--- OUTSIDE RECORDS SUMMARY | 2022-11-05 14:59 | XMS REPORT | Encounter Summary ---
Author Author [facility] Organization [facility] Address Unknown Phone Unavailable Care Team Providers Care Carburetor Specialist Name Role Phone Jorge Luis Cuba MD PCP Encounter Details Care Team Description Date Type Department Clyde Rogers MD [address] [place] [address] 09/30/2022 Documentation Neurosurgery: Main [place], [address], [address] [place] [address] Social History Date Tobacco Use Types Packs/Day Years Used Smoking Tobacco: Every Cigarettes 0.5 Day Smokeless Tobacco: Never Comments Alcohol Use Standard Drinks/Week Not Currently 0 (1 standard drink = 0.6 o z pure alcohol) Sex Assigned at Date Recorded Not on file Date Recorded COVID-19 Exposure Response 09/27/2022 7:41 AM ZINC PLATE CUTTER In the last 10 days, have you [...] as of this encounter Progress Notes * Sarah Horn BSN - 09/30/2022 2:[address] to be clouded to [facility] in [place] OBINNA Lezama [phone] Requested SDR to be calculated by [facility] in [place] PLATE CUTTER documented in this encounter Plan of Treatment Not on filedocumented as of this encounter Visit Diagnoses Not on filedocumented in this encounter Additional Health Concerns Noted Time Assessment 09/27/2022 8:16 AM ZINC PLATE CUTTER A fall risk assessment has been complet ed for the patient 09/27/2022 8:15 AM ZINC PLATE CUTTER PHQ-2 Depression Total Score: 0 documented as of this encounter Care Teams Start Date End Date Carburetor Specialist Relationship Specialty 09/10/22 Jorge Luis Cuba MD PCP - [address] [address] documented as of this encounter
--- OUTSIDE RECORDS SUMMARY | 2022-11-05 14:59 | XMS REPORT | Encounter Summary ---
Author Author [facility] Organization [facility] Address Unknown Phone Unavailable Care Team Providers Care Packing Machine Inspector Name Role Phone Jorge Luis Cuba MD PCP Reason for Referral * Radiology Services (Routine) - Authorized Diagnoses / Procedures Referred By Contact Referred To Conta ct Specialty Diagnoses Essential tremor Procedures CT HEAD WO CONTRAST Clyde Rogers MD [address] [place] [address] [facility]. [address], [address] [place] [address] Radiology Referral ID Status Reason Start Date Expiration Visits Vi sits Date Requested Authorized [id number] Authorized 09/27/2022 09/27/2023 1 1 ERCIAL LINES ACCOUNT ASSISTANT Reason for Visit * Reason Comments New Patient essential tremors; discuss FUS; referred by Dr. Marilu Morocho Neurology; bi-lat hand tremors; head tremors; difficulty eating; started at age 17 Encounter Details Care Team Description Date Type Department Clyde Rogers MD [address] [place] [address] Essential tremor (Primary Dx) 09/27/2022 Office Visit Neurosurgery: Main [place], [facility] [address], [address] [place] [address] Social History Date Tobacco Use Types Packs/Day Years Used Smoking Tobacco: Every Cigarettes 0.5 Day Smokeless Tobacco: Never Tobacco Cessation: Ready to Quit: No; Co unseling Given: Yes Comments Alcohol Use Standard Drinks/Week Not Currently 0 (1 standard drink = 0.6 o z pure alcohol) Sex Assigned at Date Recorded Not on file Date Recorded COVID-19 Exposure Response 09/27/2022 7:41 AM COMMERCIAL LINES ACCOUNT ASSISTANT In the last 10 days, have you been in contact with N o / Unsure someone who was confirmed or suspected to have Coronavirus/COVID-19? documented as of this encounter Last Filed Vital Signs Reading Time Taken Comments Vital Sign 151/47 09/27/2022 8:09 AM COMMERCIAL LINES ACCOUNT ASSISTANT Blood Pressure 55 09/27/2022 8:09 AM COMMERCIAL LINES ACCOUNT ASSISTANT Pulse - - Temperature - - Respiratory Rate 99% 09/27/2022 8:09 AM COMMERCIAL LINES ACCOUNT ASSISTANT Oxygen Saturation - - Inhaled Oxygen Concentration 56.8 kg (125 lb 3.2 oz) 09/27/2022 8:09 AM COMMERCIAL LINES ACCOUNT ASSISTANT Weight - - Height 20.36 09/10/2022 8:17 AM CDT Body Mass Index [...] as of this encounter Progress Notes * Clyde Rogers MD - 09/27/2022 8:30 AM CST Date of Service: 09/27/2022 Subjective: History obtained from Scot Bell is a 82 y.o. male. History of Present Illness History from Patient and daughet Mr. Ravi is a right-handed 82-year-old male who presents with essential tremo r and consideration for FUS. He has had a tremor since he was 17 years old. He notes bilateral upper extremity tremor as well as head tremor. He notes that is generally symmetrical. Given that he is right-handed he is mostly concerned w ith his right hand and tremor. He has significant difficulty with his activitie s of daily living including eating, cooking, buttoning his clothes, putting on g lasses, and using his phone. He denies any slowness or rigidity. He has failed multiple medications including Inderal for his tremor. Medical History: Diagnosis Date Arthritis Bleeding disorder (HCC) Hypertension PAD (peripheral artery disease) (HCC) Tremor Surgical History: Procedure Laterality Date BACK SURGERY 2016 SURGERY 2017 Iliac stents HEART VALVE SURGERY 2018 HERNIA REPAIR Double Family History Problem Relation Age of Onset Tremor Father Cancer Brother Cancer Son Social History Socioeconomic History Marital status: Single Tobacco Use Smoking status: Every Day Packs/day: 0.50 Types: Cigarettes Smokeless tobacco: Never Substance and Sexual Activity Alcohol use: Not Currently Drug use: Not Currently Objective: aspirin EC 81 mg tablet Take 81 mg by mouth daily. Plus one extra prn atorvastatin (LIPITOR) 80 mg tablet Take 80 mg by mouth daily. metoprolol tartrate (LOPRESSOR) 50 mg tablet Take 50 mg by mouth twice daily . MULTIVITAMIN PO Take 1 capsule by mouth daily. Vitals: 09/27/22 0809 BP: (!) 151/47 BP Source: Arm, Right Upper Pulse: 55 SpO2: 99% PainSc: Zero Weight: 56.8 kg (125 lb 3.2 oz) Height: (P) 167 cm (5' 5.75") Body mass index is 20.36 kg/m (pended). Physical Exam Alert and oriented x 4 CNII-XII: PERRL; sensation intact and equal to light touch bilaterally; extraoc ular muscle movements normal bilaterally; eyebrow raise, eye closure, and smile symmetrical and normal strength; diminished hearing bilaterally; palate raise sy mmetrical; shoulder shrug 5/5 strength bilaterally; Tongue protrusion symmetrica l. Strength 5/5 in all extremities Sensation intact to light touch throughout No pronator drift Normal [id number] TETRAS Score 1 2 3 4 1 Head 3 Barely Visible Noticeable Obvious Gross/Disfiguring 2 Face 0 Barely Visible Noticeable Obvious Gross/Disfiguring 3 Voice 2 Slight, aah or eee During aaah or eee and minimal in speech Obvious tr emor in speech Some words difficult to understand 4 RUE F2N 3 Barely visible 1-3cm 5-10cm >20cm 5 LUE F2N 4 Barely visible 1-3cm 5-10cm >20cm 6 RUE Wing 2 Barely visible 1-3cm 5-10cm >20cm 7 RUE Wing 2 Barely visible 1-3cm 5-10cm >20cm 8 LE 1 Barely visible Obvious but mild <5cm >5cm 9 Spiral R 4 Barely visible Obvious tremor Portions not recognizable Figure not recognizable 10 Spiral L 4 Barely visible Obvious tremor Portions not recognizable Figure not recognizable 11 Handwriting 4 Barely visible Obvious tremor Portions illegible Completely Ill egible 12 Dot R 2 Barely visible 1-3cm 5-10cm >20cm 13 Dot L 3 Barely visible 1-3cm 5-10cm >20cm 14 Trunk 0 Barely visible 1-3cm 5-10cm >20cm Total 34 Dominant hand: right Imaging: None today for this visit Assessment and Plan: Mr. Green is an 82-year-old male who presents today for evaluation for focused ultrasound. He is right-handed. He has a significant bilateral hand tremor as well as a component of head tremor. The tremors have significantly affected his activities of daily living and he has difficulty eating as well as cooking and taking care of day-to-day tasks. Physical exam is notable for a tetras score of 34. Physical exam is otherwise remarkable for hearing loss right greater than left. Of note the patient is a smoker. Based on the patient's symptoms I tavon ricci he is a good candidate for surgical intervention. I did discuss the 2 current available surgical interventions for essential tremo r, deep brain stimulation and focused ultrasound. The torres difference between th e two treatements at this time is that deep brain stimulation is able to treat b ilateral tremor while focused ultrasound is only a unilateral treatment. I disc ussed this with the patient and they noted understanding. In this patient's wilder e he is also a smoker which makes him a poor candidate for a long-term implant s uch as deep brain stimulation. He noted that he felt he would have significant improvement in his quality of life with treatment of just the right hand. There fore we discussed the focused ultrasound treatment. We discussed the planning f or the procedure which includes a CT head. We also discussed the process of the procedure which includes placement of a headframe forehead fixation throughout the procedure. Laying flat in an MRI scanner for an extended period of time typ ically around 3 hours. The patient does not note issues with claustrophobia. A lso described likely sensations including cold water on the head, vertigo, falli ng back sensation and mild nausea. The patient noted all understanding of all t his and wished to proceed. At this point we will work towards establishing a ti me for the surgery. FUS L Thalamus for R hand Clyde Rogers MD Addendum: CT head was obtained today for surgical planning. Unfortunately note d on the subdural was a 12 mm right cerebral convexity mixed density subdural he matoma with 4 mm of leftward shift. This is an incidental finding as the patien t was completely asymptomatic. We have contacted the patient to update them on this finding. I will refer him on to one of my endovascular colleagues for pote ntial MMA embolization. ERCIAL LINES ACCOUNT ASSISTANT documented in this encounter Miscellaneous Notes * Patient Instructions - Lorrie Sorto RN - 09/27/2022 8:30 AM CST Please call me with concerns or questions. Lorrie Sorto RN, BSN Field Assembly Supervisor Dr. Clyde Rogers Neurosurgery [facility] [phone] FAX [phone] ERCIAL LINES ACCOUNT ASSISTANT documented in this encounter Plan of Treatment Not on filedocumented as of this encounter Results * CT HEAD WO CONTRAST (09/27/2022 9:57 AM COMMERCIAL LINES ACCOUNT ASSISTANT) Modality Anatomical Region Laterality Computed Tomography Head Anatomical Location / Laterality Collection Method / Volume Eva ection Time Received Time Specimen (Source) 09/27/2022 10:32 AM COMMERCIAL LINES ACCOUNT ASSISTANT Impressions 09/27/2022 10:47 AM COMMERCIAL LINES ACCOUNT ASSISTANT 1. Neuronavigational CT of the head de [...] 09/27/2022 10:32 AM. Narrative 09/27/2022 10:47 AM COMMERCIAL LINES ACCOUNT ASSISTANT EXAM: CT HEAD (NEURONAVIGATIONAL) HISTORY: Presurgical planning. [...] Essential and other specified forms of tremor Essential tremor Essential and other specified forms of tremor documented in this encounter Additional Health Concerns Noted Time Assessment 09/27/2022 8:16 AM COMMERCIAL LINES ACCOUNT ASSISTANT A fall risk assessment has been complet ed for the patient 09/27/2022 8:15 AM COMMERCIAL LINES ACCOUNT ASSISTANT PHQ-2 Depression Total Score: 0 documented as of this encounter Care Teams Start Date End Date Packing Machine Inspector Relationship Specialty 09/10/22 Jorge Luis Cuba MD PCP - [place] [address] [place] [address] documented as of this encounter
--- OUTSIDE RECORDS SUMMARY | 2022-11-05 14:59 | XMS REPORT | Encounter Summary ---
Author Author [facility] Organization [facility] Address Unknown Phone Unavailable Care Team Providers Care Pulper Name Role Phone Jorge Luis Cuba MD PCP Reason for Visit * Reason Comments Tremors Encounter Details Care Team Description Date Type Department Clyde Rogers MD [address] [place] [address] Essential tremor (Primary Dx) 10/10/2022 Office Visit Neurosurgery: [facility], [address], [address] [place] [address] Social History Date Tobacco Use Types Packs/Day Years Used Smoking Tobacco: Every Cigarettes 0.5 Day Smokeless Tobacco: Never Comments Alcohol Use Standard Drinks/Week Not Currently 0 (1 standard drink = 0.6 o z pure alcohol) Sex Assigned at Date Recorded Not on file Date Recorded COVID-19 Exposure Response 10/10/2022 3:06 PM GERENTOLOGICAL PHYSIOTHERAPIST In the last 10 days, have you been in contact with N o / Unsure someone who was confirmed or suspected to have Coronavirus/COVID-19? documented as of this encounter Last Filed Vital Signs Reading Time Taken Comments Vital Sign 124/53 10/10/2022 4:00 PM GERENTOLOGICAL PHYSIOTHERAPIST Blood Pressure 63 10/10/2022 4:00 PM GERENTOLOGICAL PHYSIOTHERAPIST Pulse - - Temperature - - Respiratory Rate 99% 10/10/2022 4:00 PM GERENTOLOGICAL PHYSIOTHERAPIST Oxygen Saturation - - Inhaled Oxygen Concentration - - Weight - - Height - - Body Mass Index documented in this encounter [...] Progress Notes * Clyde Rogers MD - 10/10/2022 3:30 PM CST Mr. Green is an 82-year-old male who presents at this time on follow-up for pr ior incidental findings of a right-sided subdural hematoma. The findings were n oted on a CT done for work-up for focused ultrasound procedure for essential eden mor. He has not had any issues over the last couple of weeks. His CT head obta ined today notes stability of the subdural hematoma. At this point he will disc uss potential MMA embolization with Dr. March one of my colleagues. We will see him back in a few months to discuss moving forward with a focused ultrasound procedure. Clyde Rogers MD NTOLOGICAL PHYSIOTHERAPIST documented in this encounter Plan of Treatment Not on filedocumented as of this encounter Visit Diagnoses Diagnosis Essential tremor - Primary Essential and other specified forms of tremor documented in this encounter Additional Health Concerns Noted Time Assessment 09/27/2022 8:16 AM GERENTOLOGICAL PHYSIOTHERAPIST A fall risk assessment has been complet ed for the patient 09/27/2022 8:15 AM GERENTOLOGICAL PHYSIOTHERAPIST PHQ-2 Depression Total Score: 0 documented as of this encounter Care Teams Start Date End Date Pulper Relationship Specialty 09/10/22 Jorge Luis Cuba MD PCP - General [place] [address] [place] [id number] documented as of this encounter
--- OUTSIDE RECORDS SUMMARY | 2022-11-05 14:59 | XMS REPORT | Encounter Summary ---
Author Author [facility] Organization [facility] Address Unknown Phone Unavailable Care Team Providers Care Editor Greeting Card Name Role Phone Jorge Luis Cuba MD PCP Reason for Visit * Reason Comments Provider Discussion About Here to discuss a possible trial for treatment of subdural hematomas that Patient we are participating in at . Encounter Details Care Team Description Date Type Department Portillo March MD [address] [place] [address] Provider Discussion About Patient (Here to discuss a possible trial for treatment of subdural hematomas that we are participating in at .) 10/10/2022 Documentation Neurosurgery: [facility] [place], [address], [address] [place] [address] Social History Date Tobacco Use Types Packs/Day Years Used Smoking Tobacco: Every Cigarettes 0.5 Day Smokeless Tobacco: Never Comments Alcohol Use Standard Drinks/Week Not Currently 0 (1 standard drink = 0.6 o z pure alcohol) Sex Assigned at Date Recorded Not on file Date Recorded COVID-19 Exposure Response 10/15/2022 8:18 AM GARLAND MACHINE OPERATOR In the last 10 days, [...] as of this encounter Progress Notes * Portillo March MD - 10/10/2022 11:59 PM CST Date of Service: 10/10/2022 Subjective: Scot Bell is a 82 y.o. male who I am stepping into see quickly today to discu ss a potential trial that we are participating in a [facility] in relation to his overal l an incidentally found subdural hematoma. History of Present Illness Scot was being evaluated for his tremors which have been worsening really sign ificantly over the last year. He has also noted some gait difficulties and sens ation changes really within the last 3 months. Otherwise he has not noted any w eakness or severe falls or significant headaches that he has noticed. He does h ave an coronary atherosclerotic disease history and is taking aspirin 81 mg. On his imaging evaluation for his potential focused ultrasound for his tremor he was found to have a right sided chronic appearing subdural hematoma collection over the right hemisphere. This does measure over 1 cm on the convexity and low s have some flattening of the cortex on that side with a mild amount of 3 to 4 m m of midline shift. Overall he does seem to be clinically stable without any significant worsening i n his neurological baseline which is approximately an MRI as of 1. This may hav e been even slightly better than this a year ago. However he does continue to d o most of his work and drives and takes care of himself without significant flores ges in his overall function. The tremor does seem to be the relation to some of these difficulties. We discussed that given the findings of the subdural hematoma that we discussed the potential involvement in a clinical trial that is looking at observing medic al management and observation versus embolization of middle meningeal artery wit h a treatment of subdural hematomas. We discussed at this time that if he is in terested I would like him to come back to speak in more detail about the study w ith our clinical coordinator before he would sign any consent. Review of Systems Negative except HPI Objective: aspirin EC 81 mg tablet Take 81 mg by mouth daily. Plus one extra prn atorvastatin (LIPITOR) 80 mg tablet Take 80 mg by mouth daily. metoprolol tartrate (LOPRESSOR) 50 mg tablet Take 50 mg by mouth twice daily . MULTIVITAMIN PO Take 1 capsule by mouth daily. There were no vitals filed for this visit. There is no height or weight on file to calculate BMI. Physical Exam Awake, alert, oriented Answers all questions with appropriate response normal rhythm, rate, tone Strength on individual testing seems to be equal throughout with no evidence of focal weakness Full kiln placer strength bilaterally No evidence of significant drift Does have his baseline tremor in both upper extremities as well as some truncal level. Gait is mildly slowed minimal imbalance on testing He subjectively has some sensation decreased however on testing this is not very discernible between the 2 sides. Reflexes normal Right subdural hematoma (chronic in appearance) Imaging: There is a right chronic appearing convexity subdural hematoma with maximal dime nsion at approximately 1.2 cm on the convexity. There is some mild flattening o f the cortex as well as some mild 3 to 4 mm midline shift. Assessment and Plan: Scot is a pleasant 82-year-old male who has a history of being on aspirin 81 m g for his history of coronary artery disease and stenting. 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 He does not remember any significant falls or trauma that would be re lated to this. However, he has noticed some increasing mobility and gait imbalances as well as some sensation changes more affecting his lower extremities. Overall he is being evaluated for his tremor and plans for focused ultrasound tr eatment in relation to this. However, we discussed potential for involvement in a clinical trial looking at the treatment of his subdural hematoma. At this point we will have him come back for another appointment with our clinic al research team for further screening and evaluation of his participation in th e trial as he is interested in going to that neck step. Portillo March MD [id number] AND MACHINE OPERATOR documented in this encounter Plan of Treatment Not on filedocumented as of this encounter Visit Diagnoses Not on filedocumented in this encounter Additional Health Concerns Noted Time Assessment 09/27/2022 8:16 AM GARLAND MACHINE OPERATOR A fall risk assessment has been complet ed for the patient 09/27/2022 8:15 AM GARLAND MACHINE OPERATOR PHQ-2 Depression Total Score: 0 documented as of this encounter Care Teams Start Date End Date Editor Greeting Card Relationship Specialty 09/10/22 Jorge Luis Cuba MD PCP - [address] [address] documented as of this encounter
--- OUTSIDE RECORDS SUMMARY | 2022-11-05 14:59 | XMS REPORT | Encounter Summary ---
Author Author [facility] Organization [facility] Address Unknown Phone Unavailable Care Team Providers Care Cell Attendant Name Role Phone Jorge Luis Cuba MD PCP Reason for Visit * Auth/Cert (Routine) Diagnoses / Procedures Referred By Contact Referred To Conta ct Specialty Diagnoses SDH (subdural hematoma) Referral ID Status Reason Start Date Expiration Visits Vi sits Date Requested Authorized [id number] 1 1 Encounter Details Care Team Description Date Type Department Mila Ceballos MD [address] [address] Elizabeth Harkins CRNA [id number] [place] [address] 10/28/2022 Anesthesia [facility] [address] [facility] [address] 2 [place] [id number] Anesthesia Record Responsible Anesthesiologist Anesthesia Start Time Anesthesi a Stop Time Procedure Name Mila Ceballos MD 10/28/22 0805 10/28/22 1001 IR CEREBRAL ANEURYSM EMBOLIZATION Date Time Event Comment 724 AN Equip Check 2021 0800 0804 Out of Pre Procedure 0805 Anes Start 0806 In Room 0807 An Start Data 0810 An Induction The patient was ree valuated immediately before moderate or deep sedation use and before anesthesia induction. 0816 An Intubation 0818 Anesthesia Ready 0834 Proc Start 0954 An Extubation 0955 an stop data 1001 An Stop I completed my SBAR handoff to the receiving nurse. Meds Name Total fentaNYL PF (SUBLIMAZE) injection 75 mcg lidocaine (2%) 200 mg/10mL Injection 60 mg syringe propofol (DIPRIVAN) 200 mg/ 20 mL 130 mg injection (VIAL) rocuronium (ZEMURON) injection 60 mg ondansetron (ZOFRAN) injection 4 mg dexamethasone (DECADRON) 4 mg/mL 4 mg injection sugammadex (BRIDION) 100 mg/mL iv soln 400 mg artificial tears (dextran 2 drop 70/hypromellose) ophthalmic drops ePHEDrine 50 mg/mL 50 mg in sodium 30 mg chloride PF 0.9% 5 mL IV syringe heparin 1,000units/mL 3,000 Units lactated ringers (1000mL) 800 mL * Name O2 N2O Inspired Sevoflurane Inspired Sevoflurane * No blood administrations on file. Removal Type Details Placement 11/02/221702 by Chris Roberson RN Peripheral 10/24/22; 2013; RN; R; Antecubital; 10/24/222013 by TESS Cheng G; No; 1; 11/02/22; 1702 ARMANDO Jha 10/30/22699 by Chris Roberson RN Peripheral 10/27/22; 2051; IV Therapy; Forearm; 10/27/222051 by TESS Lynn G; 0 cm; No; Ultrasound; 1 (blood drawn OBINNA Robledo with PIV start. no printer available); 1.25 inches; 10/30/22; 0700 10/28/22 0954 by Elizabeth Harkins CRNA ETT 10/28/22; 0816; Ventilated by mask (1); 10/28/22 0816 by Torin Direct laryngoscopy, Stylet; Elizabeth Segundo CRNA Single-Lumen, Cuffed; ETT Size: 7.5mm; Mac; Blade Size: 3; Cricoid Pressure: No; Oral; 1-Full view of the glottis; 1 insertion attempt; Auscultation, ETCO2 Detector; Vol of Air in Cuff: 8 mL; Taped at Gums: 23 centimeters; atraumatic, dentition unchanged; 10/28/22; 0954 11/02/22 1703 by Chris Roberson RN Peripheral 10/28/22; 0817; Provider; L; Hand; 18 G ; 10/28/22 0817 by TESS Harkins No; 1; 11/02/22; 1703 Elizabeth Segundo, NYLON WINDER 10/28/22 0943 by Cheryl Douglass RN Arterial 10/28/22; 0841; (right ulnar); 5 FR; 10/28/22 0841 by Aaron Douglass (monitored by physician throughout the ARMANDO Lunacentrifuge separator tender); Correct Procedure, Correct Equipment / Implants Available, Marking Waived, Not Side Specific, Correct Patient Position, Correct Patient; 10/28/22; 0943; Y 11/05/22 1237 by Rashawn Career Orientation Teacher Puncture 10/28/22; 0843; Right; (ulnar); 10/28 0843 [...] Recorded COVID-19 Exposure Response 10/24/2022 5:04 PM CHASSIS INSPECTOR In the last 10 days, have you [...] OR Notes * Anesthesia Postprocedure Evaluation - Mila Ceballos MD - 10/28/2022 10:18 AM CST Post-Anesthesia Evaluation Name: Scot Bell : 1940 Age: 82 y.o. Sex : male Procedure Information Anesthesia Start Date/Time: 10/28/22 0805 Scheduled providers: Mila Ceballos MD; Cheryl Douglass RN; Eric Glass, RT(R) (),LRT Procedure: IR CEREBRAL ANEURYSM EMBOLIZATION Location: Interventional Radiology: [facility] Post-Anesthesia Vitals BP: 101/77 (10/28 1000) Temp: 36.2 C (97.1 F) (10/28 1000) Pulse: 70 (10/28 1000) Respirations: 20 PER MINUTE (10/28 1000) SpO2: 97 % (10/28 1000) SpO2 Pulse: 71 (10/28 1000) O2 Device: None (Room air) (10/28 1000) Vitals Value Taken Time BP 101/77 10/28/22 1000 Temp 36.2 C (97.1 F) 10/28/22 1000 Pulse 70 10/28/22 1000 Respirations 20 PER MINUTE 10/28/22 1000 SpO2 97 % 10/28/22 1000 O2 Device None (Room air) 10/28/22 1000 ABP ART BP Post Anesthesia Evaluation Note Evaluation location: Pre/Post Patient participation: recovered; patient participated in evaluation Level of consciousness: sleepy but conscious and confused Pain score: 0 Pain management: adequate Hydration: normovolemia Temperature: 36.0C - 38.4C Airway patency: adequate Perioperative Events Post-op nausea and vomiting: no PONV Postoperative Status Cardiovascular status: hemodynamically stable Respiratory status: spontaneous ventilation and supplemental oxygen (3L NAC) Follow-up needed: none Additional comments: PACU Meds Given none Dispo: return to inpatient bed Perioperative Events There were no known notable events for this encounter. Mila Ceballos MD, MS, CCC/SUPERVISOR ELECTRONICS TESTING 10/28/2022 10:19 AM Partner Management Consultant, Dept of Anesthesiology [phone] or available by Voalte SIS INSPECTOR * Anesthesia Preprocedure Evaluation - Elizabeth Harkins CRNA - 10/28/2022 7:47 AM CST Anesthesia Pre-Procedure Evaluation Name: Scot Bell : 1940 Age: 82 y.o. 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 5)Mass-like RUL Opacity 6)Tree-in-bud opacitiesandMediastinal and Hilar LAD Physical Assessment Vital Signs (last filed in past 24 hours): BP: 127/76 (10/28 729) Temp: 36.4 C (97.6 F) (10/28 729) Pulse: 56 (10/28 729) Respirations: 20 PER MINUTE (10/28 729) SpO2: 95 % (10/28 729) O2 Device: None (Room air) (10/28 729) SpO2 Pulse: 57 (10/28 729) Patient History No Known Allergies Current Medications [...] artery disease PTCA ( 2018) PVD Hyperlipidemia Neuro/Psych CVA ( left sided weakness), residual symptoms Neuropathy ( bilat feet) Essential tremor Musculoskeletal Back pain Arthritis Endocrine/Other - negative Constitution - negative Physical Exam Airway Findings Mallampati: II TM distance: >3 FB Neck ROM: full Mouth opening: good Airway patency: adequate Dental Findings: Lower dentures and upper dentures Cardiovascular Findings: Negative Rhythm: regular Rate: normal Abdominal Findings: Abdominal exam deferred Neurological Findings: Altered mental status Constitutional findings: Negative Diagnostic Tests Hematology: Lab Results Component Value Date HGB 12.7 10/27/2022 HCT 37.0 10/27/2022 PLTCT 100 10/27/2022 WBC 5.9 10/27/2022 NEUT 77 10/27/2022 ANC 4.87 10/27/2022 ALC 0.39 10/27/2022 MAGNUS 15 10/27/2022 AMC 0.97 10/27/2022 EOSA 1 10/27/2022 ABC 0.04 10/27/2022 MCV 98.5 10/27/2022 MCH 33.8 10/27/2022 MCHC 34.3 10/27/2022 MPV 9.1 10/27/2022 RDW 14.4 10/27/2022 General Chemistry: Lab Results Component Value Date NA 139 10/27/2022 K 3.9 10/27/2022 CL 102 10/27/2022 CO2 26 10/27/2022 GAP 11 10/27/2022 BUN 26 10/27/2022 CR 1.11 10/27/2022 GLU 115 10/27/2022 CA 8.7 10/27/2022 ALBUMIN 4.0 10/24/2022 MG 2.2 10/24/2022 TOTBILI 0.4 10/24/2022 Coagulation: Lab Results Component Value Date PT 13.5 10/24/2022 INR 1.2 10/24/2022 Anesthesia Plan ASA score: 3 Plan: general Induction method: intravenous NPO status: acceptable Informed Consent Anesthetic plan and risks discussed with patient (daughter). Use of blood products discussed with patient Blood Consent: consented Plan discussed with: anesthesiologist and NYLON WINDER. SIS INSPECTOR Associated attestation - Mila Ceballos MD - 10/28/2022 8:53 AM CHASSIS INSPECTOR I have seen the patient on the DOS (10/28/2022) and agree with the history, phys ical and anesthesia plan as above. Risks, benefits and alternatives of general a nesthesia including, but not limited to possible awareness of procedure, sore th roat, oral/dental injury during airway manipulation, allergic reactions, PONV, a spiration, delayed/prolonged emergence, possible neurologic, cardiac or pulmonar y complications, discussed with patient/HCPOA who reports understanding. Patient /HCPOA agrees to proceed with planned anesthetic after risks/benefits/alternativ es explained. The anesthetic for this patient will be General and the ASA score is ASA III with: SDH, aneurysm, Metabolic encephalopathy now here for: MMA. All questions have been answered to patient/HCPOA satisfaction. Mila Ceballos MD, MS, CCC/SUPERVISOR ELECTRONICS TESTING 10/28/2022 8:52 AM Partner Management Consultant, Department of Anesthesiology [phone] or available by Voalte documented in this encounter Plan of Treatment Not on filedocumented as of this encounter Goals Goal Patient Associated Recent Progress Patient-Stat Aut hor Goal Type Problems ed? Recover from illness Hospital On track (10/25/2022 Yes Pina Flores, 4:08 PM CHASSIS INSPECTOR) RN Note: "To get better and go home" documented as of this encounter Visit Diagnoses Not on filedocumented in this encounter Administered Medications Action Date Dose Rate Site Medication Order MAR Action 10/28/2022 8:16 AM CHASSIS INSPECTOR 2 drops artificial tears (PF) single dose Given ophthalmic solution Both Eyes, INTRA-PROCEDURE MED, Startin g on Fri10/28/22 at 0816, Until Fri10/28/22 at 1001, Anesthesia Intra-op 10/28/2022 8:23 AM CHASSIS INSPECTOR 4 mg dexamethasone sodium phosphate Given (DECADRON) injection Intravenous, INTRA-PROCEDURE MED, Starting on Fri10/28/22 at 0823, Until Fri10/28/22 at 1001, Anesthesia Intra-op 10/28/2022 9:26 AM CHASSIS INSPECTOR 10 mg ePHEDrine 50 mg/mL 50 mg in sodium Bolus chloride PF 0.9% 5 mL IV syringe 5 mL, Intravenous, INTRA-PROCEDURE MED(CONT), Starting on Fri10/28/22 at 0838, Until Fri10/28/22 at 1001, Anesthesia Intra-op 5 mg Bolus 10/28/2022 9:10 AM CHASSIS INSPECTOR 10 mg Bolus 10/28/2022 8:46 AM CHASSIS INSPECTOR 5 mg Given - New Bag 10/28/2022 8:38 AM CHASSIS INSPECTOR 10/28/2022 8:55 AM CHASSIS INSPECTOR 25 mcg fentaNYL citrate PF (SUBLIMAZE) Given injection Intravenous, INTRA-PROCEDURE MED, Starting on Fri10/28/22 at 0810, Until Fri10/28/22 at 1001, Anesthesia Intra-op 50 mcg Given 10/28/2022 8:10 AM CHASSIS INSPECTOR 10/28/2022 8:42 AM CHASSIS INSPECTOR 3,000 Units heparin (porcine) injection Given Intravenous, INTRA-PROCEDURE MED, Starting on Fri10/28/22 at 0842, Until Fri10/28/22 at 1001, Anesthesia Intra-op 10/28/2022 8:05 AM CHASSIS INSPECTOR lactated ringers infusion Given - New Intravenous, INTRA-PROCEDURE MED(CONT), Bag Starting on Fri10/28/22 at 0805, Until Fri10/28/22 at 1001, Anesthesia Intra-op 10/28/2022 8:10 AM CHASSIS INSPECTOR 60 mg lidocaine (PF) injection Given Intravenous, INTRA-PROCEDURE MED, Starting on Fri10/28/22 at 0810, Until Fri10/28/22 at 1001, Anesthesia Intra-op 10/28/2022 9:43 AM CHASSIS INSPECTOR 4 mg ondansetron (ZOFRAN) injection Given Intravenous, INTRA-PROCEDURE MED, Starting on Fri10/28/22 at 0943, Until Fri10/28/22 at 1001, Anesthesia Intra-op 10/28/2022 8:12 AM CHASSIS INSPECTOR 30 mg propofol (DIPRIVAN) injection Given Intravenous, INTRA-PROCEDURE MED, Starting on Fri10/28/22 at 0811, Until Fri10/28/22 at 1001, Anesthesia Intra-op 100 mg Given 10/28/2022 8:11 AM CHASSIS INSPECTOR 10/28/2022 9:32 AM CHASSIS INSPECTOR 10 mg rocuronium injection Given Intravenous, INTRA-PROCEDURE MED, Starting on Fri10/28/22 at 0813, Until Fri10/28/22 at 1001, Anesthesia Intra-op 10 mg Given 10/28/2022 8:55 AM CHASSIS INSPECTOR 40 mg Given 10/28/2022 8:13 AM CHASSIS INSPECTOR 10/28/2022 9:51 AM CHASSIS INSPECTOR 200 mg sugammadex (BRIDION) injection Given Intravenous, INTRA-PROCEDURE MED, Starting on Fri10/28/22 at 0951, Until Fri10/28/22 at 1001, Anesthesia Intra-op 200 mg Given 10/28/2022 9:48 AM CHASSIS INSPECTOR documented in this encounter Additional Health Concerns Noted Time Assessment 10/27/2022 10:38 PM CHASSIS INSPECTOR A fall risk assessment has been complet ed for the patient 09/27/2022 8:15 AM CHASSIS INSPECTOR PHQ-2 Depression Total Score: 0 documented as of this encounter Care Teams Start Date End Date Cell Attendant Relationship Specialty 09/10/22 Jorge Luis Cuba MD PCP - General [address] [address] documented as of this encounter
--- OUTSIDE RECORDS SUMMARY | 2022-11-05 14:59 | XMS REPORT | Encounter Summary ---
Author Author [facility] Organization [facility] Address Unknown Phone Unavailable Care Team Providers Care Detonator Assembler Name Role Phone Jorge Luis Cuba MD PCP Reason for Referral * Radiology Services (Routine) - Authorized Diagnoses / Procedures Referred By Contact Referred To Conta ct Specialty Diagnoses Essential tremor Procedures CT HEAD WO CONTRAST Clyde Rogers MD [address] [place] [address] [place] [address] Radiology Referral ID Status Reason Start Date Expiration Visits Vi sits Date Requested Authorized [id number] Authorized 10/10/2022 10/10/2023 1 1 CTURAL TECHNICIAN Reason for Visit * Reason Onset Date Comments Imaging 10/10/2022 Encounter Details Care Team Description Date Type Department Clyde Rogers MD [address] [place] [address] Imaging 10/10/2022 Telephone Neurosurgery: [facility] [place] [address], [address] [place] [address] Social History Date Tobacco Use Types Packs/Day Years Used Smoking Tobacco: Every Cigarettes 0.5 Day Smokeless Tobacco: Never Comments Alcohol Use Standard Drinks/Week Not Currently 0 (1 standard drink = 0.6 o z pure alcohol) Sex Assigned at Date Recorded Not on file Date Recorded COVID-19 Exposure Response 09/27/2022 7:41 AM STRUCTURAL TECHNICIAN In the last 10 days, have you [...] CT HEAD WO CONTRAST (10/10/2022 3:45 PM STRUCTURAL TECHNICIAN) Modality Anatomical Region Laterality Computed Tomography Head Anatomical Location / Laterality Collection Method / Volume Eva ection Time Received Time Specimen (Source) 10/10/2022 3:51 PM STRUCTURAL TECHNICIAN Impressions 10/10/2022 3:58 PM STRUCTURAL TECHNICIAN 1. Similar appearance of mixed density right [...] 10/10/2022 3:51 PM. Narrative 10/10/2022 3:58 PM STRUCTURAL TECHNICIAN EXAM: CT HEAD HISTORY: Essential tremor. Follow-up [...] 10/10/2022 3:[address] ORDERABLES MD documented in this encounter Visit Diagnoses Diagnosis Essential tremor - Primary Essential and other specified forms of tremor Essential tremor Essential and other specified forms of tremor documented in this encounter Additional Health Concerns Noted Time Assessment 09/27/2022 8:16 AM STRUCTURAL TECHNICIAN A fall risk assessment has been complet ed for the patient 09/27/2022 8:15 AM STRUCTURAL TECHNICIAN PHQ-2 Depression Total Score: 0 documented as of this encounter Care Teams Start Date End Date Detonator Assembler Relationship Specialty 09/10/22 Jorge Luis Cuba MD PCP - [address] [address] documented as of this encounter
--- OUTSIDE RECORDS SUMMARY | 2022-11-05 14:59 | XMS REPORT | Encounter Summary ---
Author Author [facility] Organization [facility] Address Unknown Phone Unavailable Care Team Providers Care Podopediatrician Name Role Phone PCP Unavailable Reason for Visit * Reason Onset Date Comments General Question 09/09/2022 Encounter Details Care Team Description Date Type Department Francisco Michel MD [address] [place] [address] General Question 09/09/2022 Telephone Neurology: [facility] [address] [facility] [place] [address] Social History Date Tobacco Use Types Packs/Day Years Used Smoking Tobacco: Every Cigarettes 0.5 Day Smokeless Tobacco: Never Comments Alcohol Use Standard Drinks/Week Not Currently 0 (1 standard drink = 0.6 o z pure alcohol) Sex Assigned at Date Recorded Not on file documented as of this encounter Miscellaneous Notes * Telephone Encounter - Ester Lugo RN - 09/09/2022 2:31 PM CDT Requested stat records from pts pcp Dr.jay Cuba at from [facility] at . Awaiting for results. Per pts radha pts phone number is [phone] documented in this encounter Plan of Treatment Not on filedocumented as of this encounter Visit Diagnoses Not on filedocumented in this encounter
--- OUTSIDE RECORDS SUMMARY | 2022-11-05 14:59 | XMS REPORT | Encounter Summary ---
Author Author [facility] Organization [facility] Address Unknown Phone Unavailable Care Team Providers Care General Production Manager Name Role Phone Jorge Luis Cuba MD PCP Encounter Details Care Team Description Date Type Department 10/24/2022 Travel Social History Date Tobacco Use Types Packs/Day Years Used Smoking Tobacco: Every Cigarettes 0.5 Day Smokeless Tobacco: Never Comments Alcohol Use Standard Drinks/Week Not Currently 0 (1 standard drink = 0.6 o z pure alcohol) Sex Assigned at Date Recorded Not on file Date Recorded COVID-19 Exposure Response 10/24/2022 5:04 PM TEXTILE SCRAP SALVAGER In the last 10 days, have you [...] Concerns Noted Time Assessment 09/27/2022 8:16 AM TEXTILE SCRAP SALVAGER A fall risk assessment has been complet ed for the patient 09/27/2022 8:15 AM TEXTILE SCRAP SALVAGER PHQ-2 Depression Total Score: 0 documented as of this encounter Care Teams Start Date End Date General Production Manager Relationship Specialty 09/10/22 Jorge Luis Cuba MD PCP - General Family [address] [place] [address], [place] [address] documented as of this encounter
--- OUTSIDE RECORDS SUMMARY | 2022-11-05 14:59 | XMS REPORT | Encounter Summary ---
Author Author [facility] Organization [facility] Address Unknown Phone Unavailable Care Team Providers Care Dope Firer Name Role Phone Jorge Luis Cuba MD PCP Reason for Visit * Reason Onset Date Comments Other 09/27/2022 Encounter Details Care Team Description Date Type Department Clyde Rogers MD [address] [place], [place] [id number] Other 09/27/2022 Telephone Neurosurgery: Main [place], [address], [address] [place] [address] Social History Date Tobacco Use Types Packs/Day Years Used Smoking Tobacco: Every Cigarettes 0.5 Day Smokeless Tobacco: Never Comments Alcohol Use Standard Drinks/Week Not Currently 0 (1 standard drink = 0.6 o z pure alcohol) Sex Assigned at Date Recorded Not on file Date Recorded COVID-19 Exposure Response 09/27/2022 7:41 AM PELLET MACHINE OPERATOR In the last 10 days, [...] Telephone Encounter - Lorrie Sorto RN - 09/27/2022 12:51 PM CST This RN spoke with Мария, Mr. Bell's dtr. This RN relayed to her that we have a n apt for Dr. Rogers made for Mr. Bell for 10/10/2022 at 330pm. By then, per Dr Rogers, we should have more information on where we are with possibility of FUS in future. Мария v/u and agreed with plan of care. ET MACHINE OPERATOR documented in this encounter Plan of Treatment Not on filedocumented as of this encounter Visit Diagnoses Not on filedocumented in this encounter Additional Health Concerns Noted Time Assessment 09/27/2022 8:16 AM PELLET MACHINE OPERATOR A fall risk assessment has been complet ed for the patient 09/27/2022 8:15 AM PELLET MACHINE OPERATOR PHQ-2 Depression Total Score: 0 documented as of this encounter Care Teams Start Date End Date Dope Firer Relationship Specialty 09/10/22 Jorge Luis Cuba MD PCP - General [place] [address] [place] [address] documented as of this encounter
--- OUTSIDE RECORDS SUMMARY | 2022-11-05 14:59 | XMS REPORT | Encounter Summary ---
Author Author [facility] Organization [facility] Address Unknown Phone Unavailable Care Team Providers Care Laboratory Assistant Name Role Phone Jorge Luis Cuba MD PCP Reason for Visit * Reason Onset Date Comments Research 10/23/2022 Encounter Details Care Team Description Date Type Department Portillo March MD [facility] [place], [place] [id number] Research 10/23/2022 Telephone Neurosurgery: Main [place], [address], [address] [place] [address] Social History Date Tobacco Use Types Packs/Day Years Used Smoking Tobacco: Every Cigarettes 0.5 Day Smokeless Tobacco: Never Comments Alcohol Use Standard Drinks/Week Not Currently 0 (1 standard drink = 0.6 o z pure alcohol) Sex Assigned at Date Recorded Not on file Date Recorded COVID-19 Exposure Response 10/15/2022 8:18 AM CLAIM AGENT In the last 10 days, have you [...] * Research - Carmelo Alatorre RN - 10/23/2022 12:44 PM CST Contact patient's daughter to discuss proceeding with study for patient and the randomization process. She voiced understanding. She reports that since the 10/15/2022 visit for consent and screening, patient's lower extremity numbness had increased and he has had several near falls and is using a wheelchair for safety. This is a decline from the 10/15/2022 visit, wher e patient was walking without assistance. Discussed with Dr March. Have adv ised her to bring patient to emergency room for evaluation. M AGENT documented in this encounter Plan of Treatment Not on filedocumented as of this encounter Visit Diagnoses Not on filedocumented in this encounter Additional Health Concerns Noted Time Assessment 09/27/2022 8:16 AM CLAIM AGENT A fall risk assessment has been complet ed for the patient 09/27/2022 8:15 AM CLAIM AGENT PHQ-2 Depression Total Score: 0 documented as of this encounter Care Teams Start Date End Date Laboratory Assistant Relationship Specialty 09/10/22 Jorge Luis [place] [address] documented as of this encounter
--- OUTSIDE RECORDS SUMMARY | 2022-11-05 14:59 | XMS REPORT | Encounter Summary ---
Author Author [facility] Organization [facility] Address Unknown Phone Unavailable Care Team Providers Care Sales Representative Trainee Name Role Phone Jorge Luis Cuba MD PCP Encounter Details Care Team Description Date Type Department 10/24/2022 Hospital Imaging: [facility] [place] [address], [address] [place] [address] Social History Date Tobacco Use Types Packs/Day Years Used Smoking Tobacco: Every Cigarettes 0.5 Day Smokeless Tobacco: Never Comments Alcohol Use Standard Drinks/Week Not Currently 0 (1 standard drink = 0.6 o z pure alcohol) Sex Assigned at Date Recorded Not on file Date Recorded COVID-19 Exposure Response 10/24/2022 5:04 PM RESEARCH MANAGER In the last 10 days, have [...] Priority Date/Time Associated Diag nosis CT HEAD EXTERNAL IMAGING Routine 10/24/2022 12:00 AM RESEARCH MANAGER documented in this encounter Results * CT HEAD EXTERNAL IMAGING (10/24/2022 12:00 AM RESEARCH MANAGER) Anatomical Location / Laterality Collection Method / Volume Eva ection Time Received Time Specimen (Source) Narrative Scheduling, Silent - 10/28/2022 8:29 AM RESEARCH MANAGER This order has been auto finalized and does not contain a result. Radiologist RADIOLOGY EXTERNAL ORDERABL ES Outpatient documented in this encounter Visit Diagnoses Not on filedocumented in this encounter Additional Health Concerns Noted Time Assessment 09/27/2022 8:16 AM RESEARCH MANAGER A fall risk assessment has been complet ed for the patient 09/27/2022 8:15 AM RESEARCH MANAGER PHQ-2 Depression Total Score: 0 documented as of this encounter Care Teams Start Date End Date Sales Representative Trainee Relationship Specialty 09/10/22 Jorge Luis Cuba MD PCP - [address] [address] documented as of this encounter
--- OUTSIDE RECORDS SUMMARY | 2022-11-05 14:59 | XMS REPORT | Encounter Summary ---
Author Author [facility] Organization [facility] Address Unknown Phone Unavailable Care Team Providers Care Sourcing Assistant Name Role Phone Jorge Luis Cuba MD PCP Reason for Visit * Auth/Cert (Routine) Diagnoses / Procedures Referred By Contact Referred To Conta ct Specialty Diagnoses SDH (subdural hematoma) Referral ID Status Reason Start Date Expiration Visits Vi sits Date Requested Authorized [id number] 1 1 Encounter Details Care Team Description Date Type Department Portillo March MD [address] [place] [address] 10/29/2022 Hospital Cardiology:Center f or Encounter [facility] [address] [facility], [address] [place] [address] Social History Date Tobacco Use Types Packs/Day Years Used Smoking Tobacco: Every Cigarettes 0.5 Day Smokeless Tobacco: Never Comments Alcohol Use Standard Drinks/Week Not Currently 0 (1 standard drink = 0.6 o z pure alcohol) Sex Assigned at Date Recorded Not on file Date Recorded COVID-19 Exposure Response 10/24/2022 5:04 PM JOB FORWARDER In the last 10 days, have you been in contact with N o / Unsure someone who was confirmed or suspected to have Coronavirus/COVID-19? documented as of this encounter Last Filed Vital Signs Reading Time Taken Comments Vital Sign 136/62 10/29/2022 3:45 PM JOB FORWARDER Blood Pressure 56 10/29/2022 3:45 PM JOB FORWARDER Pulse - - Temperature - - Respiratory Rate 98% 10/29/2022 3:45 PM JOB FORWARDER Oxygen Saturation - - Inhaled Oxygen Concentration 58.5 kg (129 lb) 10/29/2022 3:40 PM JOB FORWARDER Weight 170.2 cm (5' 7.01") 10/29/2022 3:40 PM JOB FORWARDER Height 20.2 10/29/2022 3:40 PM JOB FORWARDER Body Mass Index documented in this encounter [...] documented in this encounter Progress Notes * Elsie Pisano RN - 10/29/2022 1:45 PM CST Pre-Operative Assessment for ANSELMO or Cardioversion Date of Service: 10/29/2022 Scot Bell is a 82 y.o. y.o. male. With significant HTN, stroke..., who is ref erred for ANSELMO Indication: embolic event . he has been compliant with his none Missed dose: N/Aand ... bleeding. he is Pos itive for: Loose/False teeth and Hx. Chest surgery/radiation and Positive for: S moker. GI procedures:unknown When: When/Date: n/a Chest pain: No SOB: No Medical History: Medical History: Diagnosis Date Arthritis Bleeding disorder (HCC) Hypertension PAD (peripheral artery disease) (HCC) Tremor Surgical History: Surgical History: Procedure Laterality Date BACK SURGERY 2016 SURGERY 2017 Iliac stents HEART VALVE SURGERY 2018 HERNIA REPAIR Double Social History Social History Tobacco Use Smoking status: Every Day Packs/day: 0.50 Types: Cigarettes Smokeless tobacco: Never Vaping Use Vaping Use: Never used Substance Use Topics Alcohol use: Not Currently Drug use: Not Currently Allergies No Known Allergies Current Medications Current Facility-Administered Medications on File Prior to Encounter Medication Dose Route Frequency Provider Last Rate Last Admin acetaminophen (TYLENOL) tablet 650 mg 650 mg Oral Q6H while awake Patricia Dahl MD 650 mg at 10/29/22 0842 atorvastatin (LIPITOR) tablet 80 mg 80 mg Oral QDAY Nehemias Blanchard MD 8 0 mg at 10/29/22 0842 dextromethorphan/guaiFENesin (ROBITUSSIN-DM) oral syrup 10 mL 10 mL Oral Q6 H PRN Anna Abbott MD 10 mL at 10/27/22 1117 docusate (COLACE) capsule 100 mg 100 mg Oral BID Nehemias Blanchard MD 100 mg at 10/29/22 0842 eucalyptus-menthoL (HALLS) lozenge 1 lozenge 1 lozenge Oral Q2H PRN Leoncio Grimm MD 1 lozenge at 10/26/22 0214 fluticasone propionate (FLONASE) nasal spray 2 spray 2 spray Each Nostril Q DAY Isamar Newell APRN-FIELD ASSEMBLY SUPERVISOR 2 spray at 10/29/22 0842 hydrALAZINE (APRESOLINE) injection 10 mg 10 mg Intravenous Q6H PRN Nehemias Blanchard MD 10 mg at 10/25/22 0554 ibuprofen (MOTRIN) tablet 600 mg 600 mg Oral Q6H PRN Nehemias Blanchard MD 600 mg at 10/29/22 1245 labetaloL (NORMODYNE) injection 10 mg 10 mg Intravenous Q15 MIN PRN Nehemias Blanchard MD lidocaine (LIDODERM) 5 % topical patch 1 patch 1 patch Topical QDAY Connie Dahl MD 1 patch at 10/29/22 0842 methocarbamoL (ROBAXIN) tablet 500 mg 500 mg Oral BID Isamar Newell AP RN-FIELD ASSEMBLY SUPERVISOR 500 mg at 10/29/22 0842 metoprolol tartrate (LOPRESSOR) tablet 50 mg 50 mg Oral BID Nehemias Blanchard MD 50 mg at 10/29/22 0842 milk of magnesia (CONC) oral suspension 10 mL 10 mL Oral QDAY Nehemias Blanchard MD 10 mL at 10/26/22 0940 nicotine (polacrilex) (COMMIT) lozenge 2 mg 2 mg Oral Q1H PRN Ronnie Dahl MD ondansetron (ZOFRAN) injection 4 mg 4 mg Intravenous Q6H PRN Nehemias Blanchard MD oxyCODONE (ROXICODONE) tablet 2.5-5 mg 2.5-5 mg Oral Q4H PRN Noel Abbott MD 5 mg at 10/28/22 0639 polyethylene glycol 3350 (MIRALAX) packet 17 g 1 packet Oral QDAY Isamar Newell APRN-FIELD ASSEMBLY SUPERVISOR 17 g at 10/28/22 1418 senna/docusate (SENOKOT-S) tablet 1 tablet 1 tablet Oral BID Nehemias Blanchard MD 1 tablet at 10/29/22 0842 sodium chloride (SEA MIST) 0.65 % nasal spray 2 spray 2 spray Each Nostril PRN Leoncio Grimm MD 2 spray at 10/25/22 8090 traMADoL (ULTRAM) tablet 50 mg 50 mg Oral Q6H PRN Nehemias Blanchard MD 50 mg at 10/28/22 0530 Current Outpatient Medications on File Prior to Encounter Medication Sig Dispense Refill acetaminophen SR (TYLENOL) 650 mg tablet Take 650 mg by mouth every 8 hours as needed for Pain. atorvastatin (LIPITOR) 80 mg tablet Take 80 mg by mouth daily. metoprolol tartrate (LOPRESSOR) 50 mg tablet Take 50 mg by mouth twice daily . vitamins, B complex tab Take 1 tablet by mouth daily. vitamins, multiple cap Take 1 capsule by mouth daily. Vitals Estimated body mass index is 20.2 kg/m as calculated from the following: Height as of 10/25/22: 170.2 cm (5' 7"). Weight as of 10/25/22: 58.5 kg (129 lb). Patient appears alert and oriented: Yes NPO: for greater than 8 hours Inpatient IV status: rfa 20 Diagnostic Tests White Blood Cells Date Value Ref Range Status 10/29/2022 4.5 4.5 - 11.0 K/UL Final Hemoglobin Date Value Ref Range Status 10/29/2022 11.3 (L) 13.5 - 16.5 GM/DL Final Hematocrit Date Value Ref Range Status 10/29/2022 33.2 (L) 40 - 50 % Final Platelet Count Date Value Ref Range Status 10/29/2022 107 (L) 150 - 400 K/UL Final Sodium Date Value Ref Range Status 10/29/2022 141 137 - 147 MMOL/L Final Potassium Date Value Ref Range Status 10/29/2022 3.9 3.5 - 5.1 MMOL/L Final Magnesium Date Value Ref Range Status 10/24/2022 2.2 1.6 - 2.6 mg/dL Final Blood Urea Nitrogen Date Value Ref Range Status 10/29/2022 26 (H) 7 - 25 MG/DL Final Creatinine Date Value Ref Range Status 10/29/2022 1.04 0.4 - 1.24 MG/DL Final Glucose Date Value Ref Range Status 10/29/2022 90 70 - 100 MG/DL Final Last MAC INR Flow Sheet Entry: Last recorded Lab results: INR Date Value Ref Range Status 10/24/2022 1.2 0.8 - 1.2 Final No results found for: PTT Blood Cultures Resulted Micro Last 72 Hrs No results found Last ANSELMO date: None Last Cardioversion date: None Echo procedures within the past 30 days: No results found. Device Information on File No results found for: GENERATOR, EPDEVTYP Additional Comments: None Plan: Dr. Caraballo will plan to proceed with the ANSELMO. FORWARDER documented in this encounter Plan of Treatment Order Schedule Name Type Priority Associated Diag noses Ordered: 10/29/2022 ECG-SCAN Procedures documented as of this encounter Goals Goal Patient Associated Recent Progress Patient-Stat Aut hor Goal Type Problems ed? Recover from illness Hospital On track (10/25/2022 Yes Pina Flores, 4:08 PM JOB FORWARDER) RN Note: "To get better and go home" documented as of this encounter Procedures Comments Procedure Name Priority Date/Time Associated Diag nosis ANSELMO W/O CONTRAST Routine 10/29/2022 3:47 PM JOB FORWARDER documented in this encounter Visit Diagnoses Not on filedocumented in this encounter Orders First Ordered Date Order Set Communication Count Last Ordered D ate ADD AGITATE SALINE BUBBLE STUDY TO ECHO 1 10/29/2022 documented in this encounter Additional Health Concerns Noted Time Assessment 10/29/2022 7:15 AM JOB FORWARDER A fall risk assessment has been complet ed for the patient 09/27/2022 8:15 AM JOB FORWARDER PHQ-2 Depression Total Score: 0 documented as of this encounter Care Teams Start Date End Date Sourcing Assistant Relationship Specialty 09/10/22 Jorge Luis Cuba MD PCP - [address] [address] documented as of this encounter
--- OUTSIDE RECORDS SUMMARY | 2022-11-05 14:59 | XMS REPORT | Encounter Summary ---
Author Author [facility] Organization [facility] Address Unknown Phone Unavailable Care Team Providers Care Cruise Staff Member Name Role Phone Jorge Luis Cuba MD PCP Reason for Visit * Reason Onset Date Comments Other 09/09/2022 Pre Charting Encounter Details Care Team Description Date Type Department Francisco Michel MD [address] [place] [address] Other (Pre Charting) 09/09/2022 Telephone Neurology: [facility] [address] [facility] [place] [address] Social History Date Tobacco Use Types Packs/Day Years Used Smoking Tobacco: Every Cigarettes 0.5 Day Smokeless Tobacco: Never Comments Alcohol Use Standard Drinks/Week Not Currently 0 (1 standard drink = 0.6 o z pure alcohol) Sex Assigned at Date Recorded Not on file Date Recorded COVID-19 Exposure Response 10/10/2022 3:06 PM CNC MAINTENANCE MECHANIC In the last 10 days, have you been in contact with N o / Unsure someone who was confirmed or suspected to have Coronavirus/COVID-19? documented as of this encounter Plan of Treatment Not on filedocumented as of this encounter Visit Diagnoses Not on filedocumented in this encounter Historical Medications * This list may reflect changes made after this encounter. Start Date End Date Medication Sig Dispensed Refills 07/29/2022 atorvastatin (LIPITOR) 80 Take 80 mg by 0 mg tablet mouth daily. 07/29/2022 11/05/2022 metoprolol tartrate Take 50 mg by 0 (LOPRESSOR) 50 mg tablet mouth twice daily. added in this encounter Care Teams Start Date End Date Cruise Staff Member Relationship Specialty 09/10/22 Jorge Luis Cuba MD PCP - General [address] [address] documented as of this encounter
--- OUTSIDE RECORDS SUMMARY | 2022-11-05 14:59 | XMS REPORT | Encounter Summary ---
Author Author [facility] Organization [facility] Address Unknown Phone Unavailable Care Team Providers Care Lithographic Press Operator Name Role Phone Jorge Luis Cuba MD PCP Reason for Visit * Reason Onset Date Comments General Question 10/22/2022 Encounter Details Care Team Description Date Type Department Portillo March MD [address] [place] [address] General Question 10/22/2022 Telephone Neurosurgery: Main [place], [address], [address] [place] [address] Social History Date Tobacco Use Types Packs/Day Years Used Smoking Tobacco: Every Cigarettes 0.5 Day Smokeless Tobacco: Never Comments Alcohol Use Standard Drinks/Week Not Currently 0 (1 standard drink = 0.6 o z pure alcohol) Sex Assigned at Date Recorded Not on file Date Recorded COVID-19 Exposure Response 10/15/2022 8:18 AM INSPECTOR ALUMINUM BOAT In the last 10 days, have you [...] encounter Miscellaneous Notes * Telephone Encounter - Angelica Naik, RN - 10/22/2022 2:52 PM INSPECTOR ALUMINUM BOAT Received call from Marcelina at [facility] regarding procedure plan and ASA schedule. Dr. March and Carmelo RN notified of call as no procedure seen scheduled at this time. Call back made to discuss with Marcelina, priya FREGOSO. Received call back from Marcelina. Notified of communication with Dr. March and Rebeca lucas RN regarding research study and no certain timing of procedure at this time. I nformed Marcelina we would be in touch if moving forward. ECTOR ALUMINUM BOAT documented in this encounter Plan of Treatment Not on filedocumented as of this encounter Visit Diagnoses Not on filedocumented in this encounter Additional Health Concerns Noted Time Assessment 09/27/2022 8:16 AM INSPECTOR ALUMINUM BOAT A fall risk assessment has been complet ed for the patient 09/27/2022 8:15 AM INSPECTOR ALUMINUM BOAT PHQ-2 Depression Total Score: 0 documented as of this encounter Care Teams Start Date End Date Lithographic Press Operator Relationship Specialty 09/10/22 Jorge Luis Cuba MD PCP - [place] [address] [place] [id number] documented as of this encounter
--- OUTSIDE RECORDS SUMMARY | 2022-11-05 14:59 | XMS REPORT | Encounter Summary ---
Author Author [facility] Organization [facility] Address Unknown Phone Unavailable Care Team Providers Care Criminal Lawyer Name Role Phone Jorge Luis Cuba MD PCP Reason for Visit * Reason Onset Date Comments Other 09/12/2022 Encounter Details Care Team Description Date Type Department Clyde Rogers MD [address] [place], [place] [phone] Other 09/12/2022 Telephone Neurosurgery: Main [place], [address], [address] [place] [address] Social History Date Tobacco Use [...] Telephone Encounter - Lorrie Sorto RN - 09/12/2022 3:34 PM CDT Sarah Horn RN, FUS coordinator requested that I contact pt to schedule him f or Dr Rogers because of Dr Meadows's full schedule. This RN called Mr. Bell and spoke to pt-he requested that I contact his dtr, Мария who takes him to his apts. This RN called and spoke to Мария and we scheduled pt with Dr Galan for 09/10 for consult. documented in this encounter Plan of Treatment Not on filedocumented as of this encounter Visit Diagnoses Not on filedocumented in this encounter Additional Health Concerns Noted Time Assessment 09/10/2022 8:23 AM CDT A fall risk assessment has been complet ed for the patient 09/10/2022 8:23 AM CDT PHQ-2 Depression Total Score: 0 documented as of this encounter Care Teams Start Date End Date Criminal Lawyer Relationship Specialty 09/10/22 Jorge Luis Cuba MD PCP - General [facility] [address] [place] [id number] documented as of this encounter
--- OUTSIDE RECORDS SUMMARY | 2022-11-05 14:59 | XMS REPORT | Encounter Summary ---
Author Author [facility] Organization [facility] Address Unknown Phone Unavailable Care Team Providers Care Polytechn[employer] Registrar Name Role Phone Jorge Luis Cuba MD PCP Reason for Visit * Reason Comments Numbness Bilateral lower extremity n umbness. Reports that he was here in a clinic last Friday and had a CT of his head down - where they reportedly found a hematoma. Encounter Details Care Team Description Date Type Department Ezio Webb MD [address] [place] [address] 10/12/2022 Emergency Emergency Departmen t: [facility], [facility] [address] [facility] [address] [place] [address] Social History Date Tobacco Use Types Packs/Day Years Used Smoking Tobacco: Every Cigarettes 0.5 Day Smokeless Tobacco: Never Comments Alcohol Use Standard Drinks/Week Not Currently 0 (1 standard drink = 0.6 o z pure alcohol) Sex Assigned at Date Recorded Not on file Date Recorded COVID-19 Exposure Response 10/10/2022 3:06 PM BONDING MACHINE OPERATOR In the last 10 days, have you been in contact with N o / Unsure someone who was confirmed or suspected to have Coronavirus/COVID-19? documented as of this encounter Last Filed Vital Signs Reading Time Taken Comments Vital Sign 134/65 10/12/2022 11:00 PM BONDING MACHINE OPERATOR Blood Pressure 68 10/12/2022 11:00 PM BONDING MACHINE OPERATOR Pulse 36.8 C (98.2 F) 10/12/2022 6:54 PM BONDING MACHINE OPERATOR Temperature - - Respiratory Rate 95% 10/12/2022 11:00 PM BONDING MACHINE OPERATOR Oxygen Saturation - - Inhaled Oxygen [...] No documented as of this encounter Discharge Instructions * Discharge Instructions* Boo Puckett MD - 10/12/2022 10:47 PM CST You were seen at the [facility] Emergency Department. Your CT of your head was stable from prior images. Please make sure to follow-u p with your neurosurgeon at your scheduled appointment next Friday. You can al ways return to the emergency department for any new or worsening weakness, falls , or any other concern. Your workup showed no imminent life threatening emergencies. Thus, we feel safe letting you go home at this time. Please follow-up with the provider indicated i n your discharge paperwork. If you are following up with a doctor not in the [facility] network, please have your doctor's office contact medical records so your doctor can obtain full records from your visit today and go over them. Please report to nearest emergency department for any sudden decline in overall health, new symptoms, or any other concern. ING MACHINE OPERATOR documented in this encounter Medications at Time [...] Discharge Disposition Code Departure Means Destination Disposition Walk-out Home or Self Care documented in this encounter ED Notes * Ibis Nguyen RN - 10/12/2022 11:38 PM CST Patient educated on discharge instructions, home care, and follow up care. Patie nt verbalized understanding and had all questions answered by this RN at this ti me. Pt AOX4, VSS, and PIV removed. Pt ambulates out of department with steady ga it with family members. ING MACHINE OPERATOR * Ezio Webb MD - 10/12/2022 7:33 PM CST Images from the original note were not included. Scot Bell is a 82 y.o. male. Chief Complaint: Chief Complaint Patient presents with Numbness Bilateral lower extremity numbness. Reports that he was here in a clinic last Friday and had a CT of his head down - where they reportedly found a hematoma . History of Present Illness: Patient reports 1x week ago he experienced a brief episode of bilateral LE "numb ness" that last for a couple minutes then resolved. Patient initally thought not tameka of it until today. This afternoon ~1630 patient reports he was standing in his house when his bilateral LE suddenly went "numb" patient was unable to stand on his own and fell. In clarifying what patient means by "numb" he denies loss of sensation but feels "like both my legs gave out". Patients family was in the room and was able to catch the patient and lower him to the ground. No lighthea dedness, dizziness or other symptoms associated with the episode. Since patient reports the numbness is still persistent prompting him to present to ED for fur ther w/u. Family reports patient felt baseline this AM reporting he drove to the grocery store and unloaded groceries by himself LKN ~1200. Patient denies recent fall. Per chart review, patient has a h/o known subdural hematoma which was an incidental finding on head CT 09/27 done for work-up for focused ultrasound pro cedure for essential tremor. Most recent head CT 10/10 w/ no acute changes repor toby. Review of Systems: Review of Systems Constitutional: Negative for fever. HENT: Negative for sore throat. Eyes: Negative for visual disturbance. Respiratory: Negative for shortness of breath. Cardiovascular: Negative for chest pain. Gastrointestinal: Negative for abdominal pain. Genitourinary: Negative for dysuria. Musculoskeletal: Negative for back pain. Skin: Negative for rash. Neurological: Positive for numbness (BLE). Negative for headaches. Allergies: Patient has no known allergies. Past Medical History: Medical History: Diagnosis Date Arthritis Bleeding disorder (HCC) Hypertension PAD (peripheral artery disease) (HCC) Tremor Past Surgical History: Surgical History: Procedure Laterality Date BACK SURGERY 2016 SURGERY 2017 Iliac stents HEART VALVE SURGERY 2018 HERNIA REPAIR Double Pertinent medical and surgical history reviewed Social History: Social History Tobacco Use Smoking [...] T BP P RR SPO2P SPO2 User 10/12/22 2130 -- 146/65 60 25 PER MINUTE 60 95 % HP 10/12/22 2100 -- 154/62 60 25 PER MINUTE 61 97 % HP 10/12/22 1854 36.8 C (98.2 F) 108/96 88 20 PER MINUTE -- 100 % OK Physical Exam: Physical Exam Vitals and nursing note reviewed. Constitutional: Appearance: Normal appearance. He is normal weight. HENT: Head: Normocephalic and atraumatic. Eyes: Extraocular Movements: Extraocular movements intact. Conjunctiva/sclera: Conjunctivae normal. Cardiovascular: Rate and Rhythm: Normal rate and regular rhythm. Pulmonary: Effort: Pulmonary effort is normal. Breath sounds: Normal breath sounds. Abdominal: General: Bowel sounds are normal. There is no distension. Palpations: Abdomen is soft. Tenderness: There is no abdominal tenderness. Musculoskeletal: General: Normal range of motion. Cervical back: Neck supple. Skin: General: Skin is warm and dry. Neurological: General: No focal deficit present. Mental Status: He is oriented to person, place, and time. Mental status is at baseline. Cranial Nerves: Cranial nerves 2-12 are intact. No cranial nerve deficit. Sensory: Sensation is intact. No sensory deficit. Motor: Motor function is intact. No weakness or pronator drift. Coordination: Coordination is intact. Gait: Gait is intact. Comments: Bilateral UE and LE motor strength 5/5 Psychiatric: Mood and Affect: Mood normal. Behavior: Behavior normal. Laboratory Results: Labs Reviewed CBC AND DIFF - Abnormal Result Value Ref Range Status White Blood Cells 8.5 4.5 - 11.0 K/UL Final RBC 3.46 (*) 4.4 - 5.5 M/UL Final Hemoglobin 11.8 (*) 13.5 - 16.5 GM/DL Final Hematocrit 34.6 (*) 40 - 50 % Final MCV 100.0 80 - 100 FL Final MCH 34.0 26 - 34 PG Final MCHC 34.0 32.0 - 36.0 G/DL Final RDW 13.8 11 - 15 % Final Platelet Count 141 (*) 150 - 400 K/UL Final MPV 9.0 7 - 11 FL Final Neutrophils 79 (*) 41 - 77 % Final Lymphocytes 8 (*) 24 - 44 % Final Monocytes 9 4 - 12 % Final Eosinophils 3 0 - 5 % Final Basophils 1 0 - 2 % Final Absolute Neutrophil Count 6.77 1.8 - 7.0 K/UL Final Absolute Lymph Count 0.71 (*) 1.0 - 4.8 K/UL Final Absolute Monocyte Count 0.75 0 - 0.80 K/UL Final Absolute Eosinophil Count 0.25 0 - 0.45 K/UL Final Absolute Basophil Count 0.04 0 - 0.20 K/UL Final MDW (Monocyte Distribution Width) 18.7 <20.7 Final COMPREHENSIVE METABOLIC PANEL - Abnormal Sodium 140 137 - 147 MMOL/L Final Potassium 3.6 3.5 - 5.1 MMOL/L Final Chloride 103 98 - 110 MMOL/L Final Glucose 136 (*) 70 - 100 MG/DL Final Blood Urea Nitrogen 21 7 - 25 MG/DL Final Creatinine 1.19 0.4 - 1.24 MG/DL Final Calcium 9.2 8.5 - 10.6 MG/DL Final Total Protein 6.4 6.0 - 8.0 G/DL Final Total Bilirubin 0.3 0.3 - 1.2 MG/DL Final Albumin 3.8 3.5 - 5.0 G/DL Final Alk Phosphatase 108 25 - 110 U/L Final AST (SGOT) 25 7 - 40 U/L Final CO2 29 21 - 30 MMOL/L Final ALT (SGPT) 20 7 - 56 U/L Final Anion Gap 8 3 - 12 Final eGFR >60 >60 mL/min Final URINALYSIS DIPSTICK REFLEX TO CULTURE - Abnormal Color,UA YELLOW Final Turbidity,UA CLEAR CLEAR-CLEAR Final Specific Allen-Urine 1.009 1.005 - 1.030 Final pH,UA 7.0 5.0 - 8.0 Final Protein,UA NEG NEG-NEG Final Glucose,UA NEG NEG-NEG Final Ketones,UA NEG NEG-NEG Final Bilirubin,UA NEG NEG-NEG Final Blood,UA 2+ (*) NEG-NEG Final Urobilinogen,UA NORMAL NORM-NORMAL Final Nitrite,UA NEG NEG-NEG Final Leukocytes,UA NEG NEG-NEG Final Urine Ascorbic Acid, UA POS (*) NEG-NEG Final URINALYSIS MICROSCOPIC REFLEX TO CULTURE WBCs,UA NONE 0 - 2 /HPF Final RBCs,UA 2-10 0 - 3 /HPF Final Comment,UA Final Value: Criteria for reflex to culture are WBC>10, Positive Nitrite, and/or >=+1 leukocytes. If quantity is not sufficient, an addendum will follow. UA LEOS TOP TUBE CLEAR TOP EXTRA URINE TUBE Radiology Interpretation: CT HEAD WO CONTRAST Final Result 1. No significant change in the right cerebral convexity mixed density subdural hematoma with regional mass effect causing 4 mm of leftward midline shift. 2. Mild patchy supratentorial white matter hypodensities, likely sequela of chr onic microvascular ischemic change. By my electronic signature, I attest that I have personally reviewed the images for this examination and formulated the interpretations and opinions expressed i n this report Finalized by Romulo Kulkarni M.D. on 10/12/2022 8:49 PM. Dictated by Cayden chase MD on 10/12/2022 8:34 PM. EKG: ECG Results ECG 12-LEAD (Final result) Collection Time Result Time VT RATE P-R Interval QRS DURATION Q-T Interval QTC Calc Bazett 10/12/22 18:47:34 10/12/22 23:18:35 62 204 104 442 448 Collection Time Result Time P Rochester R Rochester T Rochester 10/12/22 18:47:34 10/12/22 23:18:35 75 7 50 Final result Impression: Normal sinus rhythm No acute ST or T wave changes No previous ECGs available in MUSE Confirmed by Ezio Webb ([id number]) on 10/12/2022 11:18:33 PM ED Course: Patient is a 82 y.o. male with a past medical history of subdural hematoma who p resented to the ED for weakness, numbness. - Initial vitals were significant for HTN, otherwise unremarkable - See physical exam as noted above--No neuro deficits - Differential diagnosis includes but is not limited to Worsening subdural, UTI, metabolic abnormality. Bilateral nature of symptoms makes thrombotic or embolic stroke unlikely. Patient does not describe symptoms that would suggest syncope or near syncope. - EKG was obtained and showed normal sinus rhythm - Labs were obtained and showed CBC without leukocytosis, CMP without RACHAEL - Imaging was obtained and showed CT head stable from previous ED Course: Patient was seen and evaluated by resident and attending physician. Initial con cern was for possible worsening subdural hematoma. Labs and imaging were obtain ed as above and showed stable head CT. Patient was able to walk with minimal as sistance and was steady on his feet. Patient also has appropriate follow-up wit h neurosurgery in approximately 3 days. 500 mL LR given for possible dehydratio n. Labs and imaging otherwise unremarkable for medical conditions that need to be treated at this time. All findings discussed with patient and the appropriate ness for discharge at this time. Patient was agreeable to the above plan and a greeable to discharge. - Findings discussed with patient and the plan for discharge. Patient understand s and agrees with plan. Patient reassessed with appropriate vital signs and symp samm control for discharge. Provided patient with discharge information, strict r eturn precautions, and follow up instructions. Patient verbalized understanding. All questions were answered prior to discharge. The patient was discharged from the emergency department in stable condition, demonstrating a clear understandi ng of return precautions and agreeable to follow up planning. -Dispo: Discharge home ED Scoring: MDM Reviewed: nursing note and vitals Interpretation: labs and CT scan Facility Administered Meds: Medications lactated ringers infusion (500 mL Intravenous Given - New Bag 10/12/222138) Active Problem List/Diagnosis Related to Current Presentation: Clinical Impression: Clinical Impression Numbness Disposition/Follow up ED Disposition ED Disposition Discharge Jorge Luis Cuba MD [address] [facility] [id number] Emergency Department: [facility], [facility] [address] [facility] [address] [facility] [id number] As needed, If symptoms worsen [facility]: [facility] [address] [facility] [id number] [facility] [address] Medications: New Prescriptions No medications on file Procedure Notes: Procedures Attestation / Supervision: IKathy am scribing for and in the presence of MD Kathy Alvarez MD Emergency Medicine PGY-2 ED ATTENDING ATTESTATION Attestation / Supervision Note concerning Scot Bell: I personally performed t he torres portions of the E/M visit, discussed case with resident and concur with heidi valdes documentation of history, physical exam, assessment, and treatment plan unless otherwise noted. Ezio Webb MD ING MACHINE OPERATOR * Leidy Bhardwaj RN - 10/12/2022 7:26 PM CST 82 y.o M present to the ED with CC of Numbness. Pt reports an episode of numbnes s and weakness in his right arm and leg for about a minute. Pt states that tonig ht numbness and weakness in BLE. Pt states his son had to catch him from falling several times tonight. Pt has a know hematoma in the left side of his head that he has been seen for here. Pt endorses in "feeling like I am going to pass out" but denies dizziness. Pt denies CP, SOB, N/V and fevers. Pt presents to the room by wheelchair. A&Ox4. Airway patent and pt is able to speak freely without difficulty. Breathing is spontaneous & unlabored. Skin color is appropriate for race. Warm and dry. Bed is lowest position and locked. Side rails up. Call light within reach. Christofer nuous SpO2 and cardiac monitoring with BP cuff in place. Patient Belongings Include: Christopher Shoes Red plaid shirt Cell Phone Wallet Patient verbalize responsibility to belongings. ING MACHINE OPERATOR documented in this encounter Plan of Treatment Not on filedocumented as of this encounter Procedures Comments Procedure Name Priority Date/Time Associated Diag nosis CT HEAD WO CONTRAST STAT 10/12/2022 8:36 PM BONDING MACHINE OPERATOR CLEAR TOP EXTRA URINE STAT 10/12/2022 TUBE 8:08 PM BONDING MACHINE OPERATOR UA LEOS TOP TUBE STAT 10/12/2022 8:08 PM BONDING MACHINE OPERATOR URINALYSIS MICROSCOPIC STAT 10/12/2022 REFLEX TO CULTURE 8:08 PM BONDING MACHINE OPERATOR HC URINALYSIS UAR STAT 10/12/2022 8:08 PM BONDING MACHINE OPERATOR HC CBC W/ AUTOMATED DIFF STAT 10/12/2022 8:08 PM BONDING MACHINE OPERATOR HC COMPREHENSIVE STAT 10/12/2022 METABOLIC PANEL 8:08 PM BONDING MACHINE OPERATOR ECG 12-LEAD STAT 10/12/2022 6:47 PM BONDING MACHINE OPERATOR documented in this encounter Results * CT HEAD WO CONTRAST (10/12/2022 8:36 PM BONDING MACHINE OPERATOR) Modality Anatomical Region Laterality Computed Tomography Head Anatomical Location / Laterality Collection Method / Volume Eva ection Time Received Time Specimen (Source) 10/12/2022 8:34 PM BONDING MACHINE OPERATOR Impressions 10/12/2022 8:49 PM BONDING MACHINE OPERATOR 1. No significant change in the right cerebral convexity mixed density subdural hematoma with regional mass effect causing 4 mm of leftward midline shift. 2. Mild patchy supratentorial white ma tter hypodensities, likely sequela of chronic microvascular ischemic change. By my electronic signature, I attest that I have personally reviewed the images for this examination and formulated the interpretations and opinions expressed in this report Finalized by Romulo Kulkarni M.D. on 10/12/2022 8:49 PM. Dictated by Cayden Cardona MD on 10/12/2022 8:34 PM. Narrative 10/12/2022 8:49 PM BONDING MACHINE OPERATOR EXAM: CT HEAD HISTORY: Weakness. Known subdural hemorrhage. TECHNIQUE: Multiple contiguous axial images were obtained of the brain without intravenous contrast. COMPARISON: CT head 10/10/2022, 09/27/2022. FINDINGS: Similar appearance of the right cerebral convexity mixed density subdural hematoma including hyperdense components, measuring up to 12 mm in thickness (series 601 image 29), previously 12 mm. There is similar mass effect on the left cerebrum resulting in mild right lateral ventricle effacement and 4 mm of leftward midline shift (series 601 image 40). No new intracranial hemorrhage or extra-axial fluid collection. No herniation. The ventricles remain nondistended. The ventricles and subarachnoid spaces are otherwise normal in size and configuration. Mild patchy supratentorial white matter hypodensities. Dilated perivascular spaces along the inferior lentiform nuclei. The estrada white matter interfaces are maintained. The basal cisterns are patent. The mastoid air cells and visualized paranasal sinuses are well-aerated. Bilateral lens replacements. Procedure Note Romulo Kulkarni MD - 10/12/2022 EXAM: CT HEAD HISTORY: Weakness. Known subdural hemorrhage. TECHNIQUE: Multiple contiguous axial images were obtained of the brain without intravenous contrast. COMPARISON: CT head 10/10/2022, 09/27/2022. FINDINGS: Similar appearance of the right cerebral convexity mixed density subdural hematoma including hyperdense components, measuring up to 12 mm in thickness (series 601 image 29), previously 12 mm. There is similar mass effect on the left cerebrum resulting in mild right lateral ventricle effacement and 4 mm of leftward midline shift (series 601 image 40). No new intracranial hemorrhage or extra-axial fluid collection. No herniation. The ventricles remain nondistended. The ventricles and subarachnoid spaces are otherwise normal in size and configuration. Mild patchy supratentorial white matter hypodensities. Dilated perivascular spaces along the inferior lentiform nuclei. The estrada white matter interfaces are maintained. The basal cisterns are patent. The mastoid air cells and visualized paranasal sinuses are well-aerated. Bilateral lens replacements. IMPRESSION 1. No significant change in the right c erebral convexity mixed density subdural hematoma with regional mass effect causing 4 mm of leftward midline shift. 2. Mild patchy supratentorial white mat ter hypodensities, likely sequela of chronic microvascular ischemic change. By my electronic signature, I attest that I have personally reviewed the images for this examination and formulated the interpretations and opinions expressed in this report Finalized by Romulo Kulkarni M.D. on 10/12/2022 8:49 PM. Dictated by Cayden Cardona MD on 10/12/2022 8:34 PM. Ezio Webb MD CT ORDERABLES * CLEAR TOP EXTRA URINE TUBE (10/12/2022 8:08 PM BONDING MACHINE OPERATOR) Anatomical Location / Laterality Collection Method / Volume Eva ection Time Received Time Specimen (Source) URINE SPECIMEN / Unknown 10/12/2022 8:08 PM BONDING MACHINE OPERATOR 10/12/2022 8:30 PM BONDING MACHINE OPERATOR Ezio Webb MD URINE ORDERABLES [facility]/State/ZIP Code Phone Number Performing Address Organization [address] DEPT PATH AND [address] LAB MEDICINE * UA LEOS TOP TUBE (10/12/2022 8:08 PM BONDING MACHINE OPERATOR) Pathologist Signature Component Value Ref Test Method Analysis Performed A t Range Time UA Reflex Culture Criteria for 10/14/2022 [facility] DEPT P ATH AND reflex to 4:54 PM LAB MEDICINE culture are BONDING MACHINE OPERATOR WBC>10, Positive Nitrite, and/or >=+1 leukocytes. If quantity is not sufficient, an addendum will follow. Anatomical Location / Laterality Collection Method / Volume Eva ection Time Received Time Specimen (Source) URINE SPECIMEN / Unknown 10/12/2022 8:08 PM BONDING MACHINE OPERATOR 10/12/2022 8:30 PM BONDING MACHINE OPERATOR Ezio Webb MD URINE ORDERABLES [facility]/State/ZIP Code Phone Number Performing Address Organization [address] DEPT PATH AND [address] [facility]. LAB MEDICINE * URINALYSIS MICROSCOPIC REFLEX TO CULTURE (10/12/2022 8:08 PM BONDING MACHINE OPERATOR) Pathologist Signature Component Value Ref Test Method Analysis Performed A t Range Time WBCs,UA NONE 0 - 2 10/12/2022 [facility] DEPT PAT H AND /HPF 9:10 PM LAB MEDICINE BONDING MACHINE OPERATOR RBCs,UA 2-10 0 - 3 10/12/2022 [facility] DEPT PAT H AND /HPF 9:10 PM LAB MEDICINE BONDING MACHINE OPERATOR Comment,UA Criteria for 10/12/2022 [facility] DEPT PATH AND reflex to 9:10 PM LAB MEDICINE culture are BONDING MACHINE OPERATOR WBC>10, Positive Nitrite, and/or >=+1 leukocytes. If quantity is not sufficient, an addendum will follow. Anatomical Location / Laterality Collection Method / Volume Eva ection Time Received Time Specimen (Source) URINE SPECIMEN / Unknown 10/12/2022 8:08 PM BONDING MACHINE OPERATOR 10/12/2022 8:30 PM BONDING MACHINE OPERATOR Ezio Webb MD URINE ORDERABLES City/State/ZIP Code Phone Number Performing Address [place] [address] [facility] DEPT PATH AND [address] [facility] LAB MEDICINE * (ABNORMAL) URINALYSIS DIPSTICK REFLEX TO CULTURE (10/12/2022 8:08 PM BONDING MACHINE OPERATOR) Pathologist Signature Component Value Ref Test Method Analysis Performed A t Range Time Color,UA YELLOW 10/12/2022 [facility] DEPT PATH AND 9:10 PM LAB MEDICINE BONDING MACHINE OPERATOR Turbidity,UA CLEAR CLEAR-CL 10/12/2022 [facility] DEPT PA TH AND EAR 9:10 PM LAB MEDICINE BONDING MACHINE OPERATOR Specific 1.009 1.005 - 10/12/2022 [facility] DEPT PAT H AND Allen-Urine 1.030 9:10 PM LAB MEDICINE BONDING MACHINE OPERATOR Comment: NOTE NEW REFERENCE RANGES pH,UA 7.0 5.0 - 10/12/2022 [facility] DEPT PAT H AND 8.0 9:10 PM LAB MEDICINE BONDING MACHINE OPERATOR Protein,UA NEG NEG-NEG 10/12/2022 [facility] DEPT PAT H AND 9:10 PM LAB MEDICINE BONDING MACHINE OPERATOR Glucose,UA NEG NEG-NEG 10/12/2022 [facility] DEPT PAT H AND 9:10 PM LAB MEDICINE BONDING MACHINE OPERATOR Ketones,UA NEG NEG-NEG 10/12/2022 [facility] DEPT PAT H AND 9:10 PM LAB MEDICINE BONDING MACHINE OPERATOR Bilirubin,UA NEG NEG-NEG 10/12/2022 [facility] DEPT PA TH AND 9:10 PM LAB MEDICINE BONDING MACHINE OPERATOR Blood,UA 2+ (A) NEG-NEG 10/12/2022 [facility] DEPT PAT H AND 9:10 PM LAB MEDICINE BONDING MACHINE OPERATOR Urobilinogen,UA NORMAL NORM-NOR 10/12/2022 [facility] DEPT PATH AND MAL 9:10 PM LAB MEDICINE BONDING MACHINE OPERATOR Nitrite,UA NEG NEG-NEG 10/12/2022 [facility] DEPT PAT H AND 9:10 PM LAB MEDICINE BONDING MACHINE OPERATOR Leukocytes,UA NEG NEG-NEG 10/12/2022 [facility] DEPT P ATH AND 9:10 PM LAB MEDICINE BONDING MACHINE OPERATOR Urine Ascorbic Acid, POS (A) NEG-NEG 10/12/2022 [facility] DEPT PATH AND UA 9:10 PM LAB MEDICINE BONDING MACHINE OPERATOR Comment: Ascorbic acid is found in various food supplies and dietary supplements, and is reported to cause strong interference with Macroscopic Urinalysis testing for glucose, blood and nitrite, and can result in a false negative result. Anatomical Location / Laterality Collection Method / Volume Eva ection Time Received Time Specimen (Source) URINE SPECIMEN / Unknown 10/12/2022 8:08 PM BONDING MACHINE OPERATOR 10/12/2022 8:30 PM BONDING MACHINE OPERATOR Ezio Webb MD URINE ORDERABLES City/State/ZIP Code Phone Number Performing [place] [address] [facility] DEPT PATH AND [address] [facility]. LAB MEDICINE * (ABNORMAL) COMPREHENSIVE METABOLIC PANEL (10/12/2022 8:08 PM BONDING MACHINE OPERATOR) Pathologist Signature Component Value Ref Test Method Analysis Performed A t Range Time Sodium 140 137 - 10/12/2022 [facility] DEPT PAT H AND 147 9:10 PM LAB MEDICINE MMOL/L BONDING MACHINE OPERATOR Potassium 3.6 3.5 - 10/12/2022 [facility] DEPT PAT H AND 5.1 9:10 PM LAB MEDICINE MMOL/L BONDING MACHINE OPERATOR Chloride 103 98 - 110 10/12/2022 [facility] DEPT PAT H AND MMOL/L 9:10 PM LAB MEDICINE BONDING MACHINE OPERATOR Glucose 136 (H) 70 - 100 10/12/2022 [facility] DEPT PAT H AND MG/DL 9:10 PM LAB MEDICINE BONDING MACHINE OPERATOR Blood Urea Nitrogen 21 7 - 25 10/12/2022 [facility] DEPT PATH AND MG/DL 9:10 PM LAB MEDICINE BONDING MACHINE OPERATOR Creatinine 1.19 0.4 - 10/12/2022 [facility] DEPT PAT H AND 1.24 9:10 PM LAB MEDICINE MG/DL BONDING MACHINE OPERATOR Calcium 9.2 8.5 - 10/12/2022 [facility] DEPT PAT H AND 10.6 9:10 PM LAB MEDICINE MG/DL BONDING MACHINE OPERATOR Total Protein 6.4 6.0 - 10/12/2022 [facility] DEPT P ATH AND 8.0 G/DL 9:10 PM LAB MEDICINE BONDING MACHINE OPERATOR Total Bilirubin 0.3 0.3 - 10/12/2022 [facility] DEPT PATH AND 1.2 9:10 PM LAB MEDICINE MG/DL BONDING MACHINE OPERATOR Albumin 3.8 3.5 - 10/12/2022 [facility] DEPT PAT H AND 5.0 G/DL 9:10 PM LAB MEDICINE BONDING MACHINE OPERATOR Alk Phosphatase 108 25 - 110 10/12/2022 [facility] DEPT PATH AND U/L 9:10 PM LAB MEDICINE BONDING MACHINE OPERATOR AST (SGOT) 25 7 - 40 10/12/2022 [facility] DEPT PAT H AND U/L 9:10 PM LAB MEDICINE BONDING MACHINE OPERATOR CO2 29 21 - 30 10/12/2022 [facility] DEPT PAT H AND MMOL/L 9:10 PM LAB MEDICINE BONDING MACHINE OPERATOR ALT (SGPT) 20 7 - 56 10/12/2022 [facility] DEPT PAT H AND U/L 9:10 PM LAB MEDICINE BONDING MACHINE OPERATOR Anion Gap 8 3 - 12 10/12/2022 [facility] DEPT PAT H AND 9:10 PM LAB MEDICINE BONDING MACHINE OPERATOR eGFR >60 >60 10/12/2022 [facility] DEPT PAT H AND mL/min 9:10 PM LAB MEDICINE BONDING MACHINE OPERATOR Comment: eGFR calculated using the CKD-EPIcr_R equation Anatomical Location / Laterality Collection Method / Volume Eva ection Time Received Time Specimen (Source) BLOOD / Unknown 10/12/2022 8:08 PM BONDING MACHINE OPERATOR 10/12/20 22 8:30 PM BONDING MACHINE OPERATOR Ezio Webb MD LABORATORY ORDERABLES City/State/ZIP Code Phone Number Performing Address [place] [address] [facility] DEPT PATH AND [address] [facility] LAB MEDICINE * (ABNORMAL) CBC AND DIFF (10/12/2022 8:08 PM BONDING MACHINE OPERATOR) Pathologist Signature Component Value Ref Test Method Analysis Performed A t Range Time White Blood Cells 8.5 4.5 - 10/12/2022 [facility] PT PATH AND 11.0 8:55 PM LAB MEDICINE K/UL BONDING MACHINE OPERATOR RBC 3.46 (L) 4.4 - 10/12/2022 [facility] DEPT PAT H AND 5.5 M/UL 8:55 PM LAB MEDICINE BONDING MACHINE OPERATOR Hemoglobin 11.8 (L) 13.5 - 10/12/2022 [facility] DEPT PAT H AND 16.5 8:55 PM LAB MEDICINE GM/DL BONDING MACHINE OPERATOR Hematocrit 34.6 (L) 40 - 50 10/12/2022 [facility] DEPT PAT H AND % 8:55 PM LAB MEDICINE BONDING MACHINE OPERATOR MCV 100.0 80 - 100 10/12/2022 [facility] DEPT PAT H AND FL 8:55 PM LAB MEDICINE BONDING MACHINE OPERATOR MCH 34.0 26 - 34 10/12/2022 [facility] DEPT PAT H AND PG 8:55 PM LAB MEDICINE BONDING MACHINE OPERATOR MCHC 34.0 32.0 - 10/12/2022 [facility] DEPT PAT H AND 36.0 8:55 PM LAB MEDICINE G/DL BONDING MACHINE OPERATOR RDW 13.8 11 - 15 10/12/2022 [facility] DEPT PAT H AND % 8:55 PM LAB MEDICINE BONDING MACHINE OPERATOR Platelet Count 141 (L) 150 - 10/12/2022 [facility] DEPT PATH AND 400 K/UL 8:55 PM LAB MEDICINE BONDING MACHINE OPERATOR MPV 9.0 7 - 11 10/12/2022 [facility] DEPT PAT H AND FL 8:55 PM LAB MEDICINE BONDING MACHINE OPERATOR Neutrophils 79 (H) 41 - 77 10/12/2022 [facility] DEPT PAT H AND % 8:55 PM LAB MEDICINE BONDING MACHINE OPERATOR Lymphocytes 8 (L) 24 - 44 10/12/2022 [facility] DEPT PAT H AND % 8:55 PM LAB MEDICINE BONDING MACHINE OPERATOR Monocytes 9 4 - 12 % 10/12/2022 [facility] DEPT PAT H AND 8:55 PM LAB MEDICINE BONDING MACHINE OPERATOR Eosinophils 3 0 - 5 % 10/12/2022 [facility] DEPT PAT H AND 8:55 PM LAB MEDICINE BONDING MACHINE OPERATOR Basophils 1 0 - 2 % 10/12/2022 [facility] DEPT PAT H AND 8:55 PM LAB MEDICINE BONDING MACHINE OPERATOR Absolute Neutrophil 6.77 1.8 - 10/12/2022 [facility] DEPT PATH AND Count 7.0 K/UL 8:55 PM LAB MEDICINE BONDING MACHINE OPERATOR Absolute Lymph Count 0.71 (L) 1.0 - 10/12/2022 [facility] DEPT PATH AND 4.8 K/UL 8:55 PM LAB MEDICINE BONDING MACHINE OPERATOR Absolute Monocyte 0.75 0 - 0.80 10/12/2022 [facility] DE PT PATH AND Count K/UL 8:55 PM LAB MEDICINE BONDING MACHINE OPERATOR Absolute Eosinophil 0.25 0 - 0.45 10/12/2022 [facility] DEPT PATH AND Count K/UL 8:55 PM LAB MEDICINE BONDING MACHINE OPERATOR Absolute Basophil 0.04 0 - 0.20 10/12/2022 [facility] DE PT PATH AND Count K/UL 8:55 PM LAB MEDICINE BONDING MACHINE OPERATOR MDW (Monocyte 18.7 <20.7 10/12/2022 [facility] DEPT P ATH AND Distribution Width) 8:55 PM LAB MEDICINE BONDING MACHINE OPERATOR Comment: MDW greater than 20.0, together [...] Received Time Specimen (Source) BLOOD / Unknown 10/12/2022 8:08 PM BONDING MACHINE OPERATOR 10/12/20 8:30 PM BONDING MACHINE OPERATOR Ezio Webb MD LABORATORY ORDERABLES City/State/ZIP Code Phone Number Performing [place] [address] [facility] DEPT PATH AND [address] [facility] MEDICINE * ECG 12-LEAD (10/12/2022 6:47 PM BONDING MACHINE OPERATOR) Pathologist Signature Component Value Ref Test [...] Received Time Specimen (Source) 10/12/2022 6:47 PM BONDING MACHINE OPERATOR 10/12/20 11:18 PM BONDING MACHINE OPERATOR Impressions GE MUSE - 10/12/2022 11:18 PM BONDING MACHINE OPERATOR Normal sinus rhythm No acute ST or [...] Phone Number Performing Address Organization [facility] M[facility] documented in this encounter Visit Diagnoses Diagnosis Numbness - Primary Disturbance of skin sensation documented in this encounter Administered Medications Action Date Dose Rate Site Medication Order MAR Action 10/12/2022 9:39 PM BONDING MACHINE OPERATOR 500 mL 999 mL/hr lactated ringers infusion Given - New 500 mL, 500 mL, Intravenous, at 999 Bag mL/hr, BOLUS, 1 dose, On 10/12/22 at 2145 LACTATED RINGERS IV SOLP (Cabinet Override) NOW, 1 dose, On 10/12/22 at 2145, Created by cabinet override, Created by cabinet override documented in this encounter Active and Recently Administered Medications Times are shown in BONDING MACHINE OPERATOR. 10/11/2022 10/12/2022 Medication Order 10/10/20229 (Given - New Bag - Provider: Concha Teresa, RN)[id number] (Infusion Stopped - Provider: Ibis Nguyen RN) lactated ringers infusion (COMPLETED) 500 mL, 500 mL, Intravenous, at 999 mL/hr, BOLUS, 1 dose, On 10/12/22 at 2145 documented in this encounter Additional Health Concerns Noted Time Assessment 09/27/2022 8:16 AM BONDING MACHINE OPERATOR A fall risk assessment has been complet ed for the patient 09/27/2022 8:15 AM BONDING MACHINE OPERATOR PHQ-2 Depression Total Score: 0 documented as of this encounter Care Teams Start Date End Date Polytechnic Registrar Relationship Specialty 09/10/22 Jorge Luis Cuba MD PCP - [address] [address] documented as of this encounter
--- OUTSIDE RECORDS SUMMARY | 2022-11-05 14:59 | XMS REPORT | Encounter Summary ---
Author Author [facility] Organization [facility] Address Unknown Phone Unavailable Care Team Providers Care Facility Maintenance Worker Name Role Phone Jorge Luis Cuba MD PCP Reason for Visit * Auth/Cert (Routine) Diagnoses / Procedures Referred By Contact Referred To Conta ct Specialty Diagnoses SDH (subdural hematoma) Referral ID Status Reason Start Date Expiration Visits Vi sits Date Requested Authorized [id number] 1 1 Encounter Details Care Team Description Date Type Department 10/27/2022 Hospital Vascular Access Tea m: Encounter Main [place], [facility] [address], [address] [place] [address] Social History Date Tobacco Use Types Packs/Day Years Used Smoking Tobacco: Every Cigarettes 0.5 Day Smokeless Tobacco: Never Comments Alcohol Use Standard Drinks/Week Not Currently 0 (1 standard drink = 0.6 o z pure alcohol) Sex Assigned at Date Recorded Not on file Date Recorded COVID-19 Exposure Response 10/24/2022 5:04 PM AQUATIC BIOLOGIST In the last 10 days, have you [...] track (10/25/2022 Yes Pina Flores, 4:08 PM AQUATIC BIOLOGIST) RN Note: "To get better and go home" documented as of this encounter Visit Diagnoses Not on filedocumented in this encounter Additional Health Concerns Noted Time Assessment 10/27/2022 10:38 PM AQUATIC BIOLOGIST A fall risk assessment has been complet ed for the patient 09/27/2022 8:15 AM AQUATIC BIOLOGIST PHQ-2 Depression Total Score: 0 documented as of this encounter Care Teams Start Date End Date Facility Maintenance Worker Relationship Specialty 09/10/22 Jorge Luis Cuba MD PCP - General [address] [address] documented as of this encounter
--- OUTSIDE RECORDS SUMMARY | 2022-11-05 14:59 | XMS REPORT | Encounter Summary ---
Author Author [facility] Organization [facility] Address Unknown Phone Unavailable Care Team Providers Care Management Engineer Name Role Phone Jorge Luis Cuba MD PCP Encounter Details Care Team Description Date Type Department 10/10/2022 Travel Social History Date Tobacco Use Types Packs/Day Years Used Smoking Tobacco: Every Cigarettes 0.5 Day Smokeless Tobacco: Never Comments Alcohol Use Standard Drinks/Week Not Currently 0 (1 standard drink = 0.6 o z pure alcohol) Sex Assigned at Date Recorded Not on file Date Recorded COVID-19 Exposure Response 10/10/2022 3:06 PM SWING TENDER In the last 10 days, have you [...] Concerns Noted Time Assessment 09/27/2022 8:16 AM SWING TENDER A fall risk assessment has been complet ed for the patient 09/27/2022 8:15 AM SWING TENDER PHQ-2 Depression Total Score: 0 documented as of this encounter Care Teams Start Date End Date Management Engineer Relationship Specialty 09/10/22 Jorge Luis Cuba MD PCP - General Family [address] [place] [address], [place] [address] documented as of this encounter
--- OUTSIDE RECORDS SUMMARY | 2022-11-05 14:59 | XMS REPORT | Encounter Summary ---
Author Author [facility] Organization [facility] Address Unknown Phone Unavailable Care Team Providers Care Cutting And Printing Machine Operator Name Role Phone Jorge Luis Cuba MD PCP Encounter Details Care Team Description Date Type Department 09/10/2022 Travel Social History Date Tobacco Use Types [...] encounter Care Teams Start Date End Date Cutting And Printing Machine Operator Relationship Specialty 09/10/22 Jorge Luis Cuba MD PCP - General [address] [address] documented as of this encounter
--- OUTSIDE RECORDS SUMMARY | 2022-11-05 14:59 | XMS REPORT | Encounter Summary ---
Author Author [facility] Organization [facility] Address Unknown Phone Unavailable Care Team Providers Care Metal Numerical Tool Programmer Name Role Phone Jorge Luis Cuba MD PCP Encounter Details Care Team Description Date Type Department Clyde Rogers MD [address] [place] [id number] 10/01/2022 Documentation Neurosurgery: Main [place], [address], [address] [place] [address] Social History Date Tobacco Use Types Packs/Day Years Used Smoking Tobacco: Every Cigarettes 0.5 Day Smokeless Tobacco: Never Comments Alcohol Use Standard Drinks/Week Not Currently 0 (1 standard drink = 0.6 o z pure alcohol) Sex Assigned at Date Recorded Not on file Date Recorded COVID-19 Exposure Response 09/27/2022 7:41 AM ANALOG DEVICE DESIGNER In the last 10 days, have you [...] Progress Notes * Sarah Horn BSN - 10/01/2022 9:24 AM CST Images from the original note were not included. This skull density ratio (SDR) was calculated for MgFUS by [employer] [facility] [place], [place] from the most recently available non-contrast CT Head images. This is conside red to be 0.52 with proceeding with MgFUS. The patient will have an appointm ent scheduled with Neurosurgery to further discuss these results and their optio ns for treatment. OG DEVICE DESIGNER documented in this encounter Plan of Treatment Not on filedocumented as of this encounter Visit Diagnoses Not on filedocumented in this encounter Additional Health Concerns Noted Time Assessment 09/27/2022 8:16 AM ANALOG DEVICE DESIGNER A fall risk assessment has been complet ed for the patient 09/27/2022 8:15 AM ANALOG DEVICE DESIGNER PHQ-2 Depression Total Score: 0 documented as of this encounter Care Teams Start Date End Date Metal Numerical Tool Programmer Relationship Specialty 09/10/22 Jorge Luis Cuba MD PCP - [address] [address] documented as of this encounter
--- NOTE | 2022-11-05 15:02 | Physical Therapy Evaluation ---
PT Evaluation-General Medical Diagnosis Admission Date Nov 05, 2022 at 14:30 Medical Diagnosis: CVA Onset Date: Nov 05, 2022 Therapy Diagnosis Therapy Diagnosis: generalized weakness/impaired mobility Precautions Precautions/Isolations: Fall Prevention, Standard Precautions Referral Physician: Noemy Reason for Referral: Evaluation/Treatment Medical History Pertinent Medical History: CAD, CVA, HTN, Smoking Additional Medical History essential tremor, subdural hematoma Current History Subacute right medial occipitotemporal stroke (R ATTENDING RADIOLOGIST) Reviewed History: Yes Social History Home: Single Level Current Living Status: Children Entry Into Home: Stairs With Railing PT Steps Into Home: 2 Prior Prior Level of Function SCALE: Activities may be completed with or without assistive devices. 2-Ascshwpxrl-arriudz completes the activity by him/herself with no assistance from a helper. 5-Set-up or Clean-up Assistance-helper sets up or cleans up; patient completes activity. [place] assists only prior to or following the activity. 4-Supervision or Touching Assistance-helper provides verbal cues and/or touching/steadying and/or contact guard assistance as patient completes activity. Assistance may be provided throughout the activity or intermittently. 3-Partial/Moderate Assistance-helper does LESS THAN HALF the effort. [place] lifts, holds or supports trunk or limbs, but provides less than half the effort. 2-Substantial/Maximal Assistance-helper does MORE THAN HALF the effort. [place] lifts or holds trunk or limbs and provides more than half the effort. 9-Dmfdmmbck-icmilc does ALL the effort. Patient does none of the effort to complete the activity. Or, the assistance of 2 or more helpers is required for the patient to complete the activity. If activity was not attempted, code reason: 7-Patient Refused. 9-Not Applicable-not attempted and the patient did not perform the activity before the current illness, exacerbation or injury. 10-Not Attempted due to Environmental Limitations-(lack of equipment, weather restraints, etc.). 88-Not Attempted due to Medical Conditions or Safety Concerns. Bed Mobility: 6 Transfers (B,C,W/C): 6 Gait: 6 Stairs: 6 Wheelchair Mobility: 9 Indoor Mobility (Ambulation): Independent Stairs: Independent Prior Devices Use: Walker per daughter report PT Evaluation-Current Subjective Patient and family agree to PT. Patient reports fatigue. Pain Section J - Health Conditions 1. Rarely or not at all 2. Occasionally 3. Frequently 4. Almost constantly 8. Unable to answer Pain Effect on Sleep: 8 Pain Interference with Therapy: 8 Pain Interference w/Day-to-Day: 8 Objective Patient Orientation: Person ROM/Strength ROM Lower Extremities bilateral LE WFL Strength Lower Extremities right knee flexion/extension 3/5; hip flexion 3/5; DF/PF 3/5 left knee flexion/extension 3-/5; hip flexion 3-/5/ DF/PF 3-/5 Integumentary/Posture Bowel Incontinence: No Bladder Incontinence: No Posture slightly kyphotic Neuromuscular (Tone, Coordination, Reflexes) noted ataxia with gait/essential tremors bilateral UE's Sensory Vision: left def. Hearing: Functional Sensation Right Lower Extremit: Intact Sensation Left Lower Extremity: Intact Transfers Roll Left & Right (QC): 4 Sit to Lying (QC): 3 (mod assist) Lying to Sitting/Side of Bed(Q: 4 Sit to Stand (QC): 3 Chair/Prx-nw-Ujend Xfer(QC): 3 Toilet Transfer (QC): 3 Car Transfer (QC): 3 (mod assist) Gait Does the Patient Walk?: Yes Mode of Locomotion: Walk Anticipated Mode of Locomotion: Walk Walk 10 feet (QC): 3 Walk 50 ft with 2 Turns(QC): 3 Walk 150 ft (QC): 3 Walking 10ft/uneven surface-QC: 3 Distance: 150' Gait Assistive Device: FWW Comments/Gait Description SENIOR DATA WAREHOUSE ARCHITECT initially/FWW use for balance and safety Wheelchair Training Does the Pt Use a Wheelchair?: No Wheel 50 ft with 2 turns (QC): 88 Wheel 150 ft (QC): 88 Type of Wheelchair: Manual Stairs #of Steps: 4 1 Step (curb) (QC): 3 (mod assist) 4 Steps (QC): 3 (mod assist) 12 Steps (QC): 88 Balance Sitting Static: Fair Sitting Dynamic: Fair Standing Static: Fair (fair -) Standing Dynamic: Fair (fair -) Picking up an Object (QC): 88 Assessment/Needs Patient will benefit from skilled PT to address functional strength and mobility to improve current LOF to safely return to home with family at maximum LOF. Patient has noted deficits with functional mobility, static and dynamic balance (standing and sitting) and functional strength, as well as, safety concerns. Rehab Potential: Fair PT Retirement Goals Legal Examiner Goals PT Retirement Goals Time Frame: Dec 07, 2022 Roll Left to Right (QC): 6 Sit to Lying (QC): 6 Lying-Sitting on Side/Bed(QC): 6 Sit to Stand (QC): 4 (SBA for safety) Chair/Lyd-lb-Gtath Xfer(QC): 4 (SBA) Toilet/Commode Transfer (QC): 4 (SBA for safety) Car Transfer (QC): 4 (SBA for safety) Does the Patient Walk: Yes Walk 10 feet (QC): 4 (SBA for safety due to ataxia) Walk 10ft-Uneven Surface(QC): 4 (SBA for safety due to ataxia) Walk 50ft with 2 Turns (QC): 4 (SBA due to ataxia) Walk 150 ft (QC): 4 (SBA for safety due to ataxia) Does the Pt use WC or Scooter?: No Wheel 50 feet with 2 turns (QC: 3 Type: Manual Wheel 150 feet: 3 Type: Manual 1 Step (curb) (QC): 4 (CGA for safety) 4 Steps (QC): 4 (CGA for safety) 12 Steps (QC): 4 (CGA for safety) Picking up an Object (QC): 1 (due to balance deficits) PT Plan Problem List Problem List: Activity Tolerance, Functional Strength, Safety, Balance, Gait, Transfer, Bed Mobility Treatment/Plan Treatment Plan: Continue Plan of Care Treatment Plan: Bed Mobility, Concurrent Therapy, Education, Functional Activity Michael, Functional Strength, Group Therapy, Gait, Safety, Therapeutic Exercise, Transfers Treatment Duration: Dec 07, 2022 Frequency: At least 5 of 7 days/Wk (IRF) Estimated Hrs Per Day: 1.5 hours per day Patient and/or Family Agrees t: Yes Safety Risks/Education Patient Education: Gait Training, Steps, Safety Issues Teaching Recipient: Patient Teaching Methods: Demonstration, Discussion Response to Teaching: Verbalize Understanding, Return Demonstration, Unable to Comprehend, Reinforcement Needed Time Time In: 1430 Time Out: 1440 DATE: Nov 05, 2022 Total Billed Treatment Time: 10 Total Billed Treatment 1 visit EVModC 10 min BRIDGET MARRERO PT Nov 05, 2022 15:02
[2022-11-05 15:35] VITALS: BP 129/72
--- NOTE | 2022-11-05 15:40 | Occupational Therapy Eval ---
OT Evaluation-General/PLF Medical Diagnosis Admission Date Nov 05, 2022 at 14:30 Medical Diagnosis: CVA Onset Date: Nov 05, 2022 Therapy Diagnosis Therapy Diagnosis: reduced adl status Precautions Precautions/Isolations: Fall Prevention, Standard Precautions Safety Interventions: Bed Exit Alarm Referral Physician: Noemy Velez Reason: Evaluation/Treatment Medical History Pertinent Medical History: Arthritis, CAD, CVA, HTN, Smoking Additional Medical History chronic subdural hematoma, essential tremors, Current History Pt presented to hospital with increased bilateral L>R weakness and numbness. 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 CT of chest reveals lung mass. Pt is a poor historian, oriented to self and birthday only. Word finding difficulties evident, possible expressive/receptive aphasia. Pt with bilateral UE tremors causing difficulty with feeding and FM tasks. Per chart, pt lives with 2 sons, 1 of those sons is gone a lot. Pt reports he is indep with adls but "sometimes" has difficulty with FM tasks such as buttoning, fastening belt, etc. His son completes all IADLs. Pt owns a walker and a cane but does not use at baseline. Reviewed History: Yes Social History Home: Single Level Current Living Status: Children Entry Into Home: Stairs With Railing Steps Into Home: 2 ADL-Prior Level of Function SCALE: Activities may be completed with or without assistive devices. 4-Ojqgtxeyno-aveyngi completes the activity by him/herself with no assistance from a helper. 5-Set-up or Clean-up Assistance-helper sets up or cleans up; patient completes activity. [place] assists only prior to or following the activity. 4-Supervision or Touching Assistance-helper provides verbal cues and/or touching/steadying and/or contact guard assistance as patient completes activity. Assistance may be provided throughout the activity or intermittently. 3-Partial/Moderate Assistance-helper does LESS THAN HALF the effort. [place] lifts, holds or supports trunk or limbs, but provides less than half the effort. 2-Substantial/Maximal Assistance-helper does MORE THAN HALF the effort. [place] lifts or holds trunk or limbs and provides more than half the effort. 7-Zvdrajlkg-dbmgyx does ALL the effort. Patient does none of the effort to complete the activity. Or, the assistance of 2 or more helpers is required for the patient to complete the activity. If activity was not attempted, code reason: 7-Patient Refused. 9-Not Applicable-not attempted and the patient did not perform the activity before the current illness, exacerbation or injury. 10-Not Attempted due to Environmental Limitations-(lack of equipment, weather restraints, etc.). 88-Not Attempted due to Medical Conditions or Safety Concerns. Self Care: Unknown Functional Cognition: Unknown DME/Equipment: Bath Chair, Tub/Shower OT Current Status Subjective Pt denies pain but does report fatigue from travel. Co-treat with PT for part of treatment secondary to fatigue, poor mobility, high fall risk, and the need of 2 skilled clinicians to progress indep and safety with adls and functional mobility. Appearance Pt left sitting in recliner, all needs within reach. OT modified call light to have raised button due to visual deficits. Pt able to demonstrate ability to use post modification. Mental Status/Objective Patient Orientation: Person, Confused Current Glasses/Contacts: Yes Hearing Aids: No Dentures/Partials: Yes Hand Dominance: Right Upper Extremity ROM Bilateral shoulder: ~150 degrees Elbows-distally WNL however with uncoordinated movements secondary to tremors. Upper Extremity Strength 4/5 throughout ADL-Treatment Eating (QC): 1 Oral Hygiene (QC): 1 Shower/Bathe Self (QC): 10 Upper Body Dressing (QC): 3 (assist with buttons only) Lower Body Dressing (QC): 3 (assist with button and belt) On/Off Footwear (QC): 4 Toileting Hygiene (QC): 7 Pt reports fatigue from travel prior to starting any activity. Several rest breaks required throughout assessment/treatment. Pt is able to stand with SBA- CGA. Slightly unsteady on feet. Initially, hand held assist provided but tra nsitioned to using a walker. With AD, pt requires mod-max cues for walker management and object avoidance secondary to L visual field cut. Pt was able to don/doff shirt in standing with CGA for safety. Dependent for completing all buttons due to severe essential tremors. Tremors also causing difficulty with oral care, thus needing assist with each step of task. Pt given education on compensatory strategies such as squeezing toothpaste directly into mouth. Even with built up handle on toothbrush, pt requires HOHA to complete. OT introduced pt to reducing degrees of freedom and resting elbows/wrists on wall. With modified position, tremors do seem to reduce in intensity. Attempt to try actual task in modified position in future sessions. Pt reports he is unable to feed self due to the severity of his tremors. RN notified that pt will need assist at this time. He states he has already tried built up handles, weighted utensils and curved silverware with no success. Pt was able to reach feet in order to don pants and socks however requires extra time due to tremors. Steadying assist and assist with management of button/belt required in standing. Very little to no initiation observed during adls. Several verbal and tactile cues needed to start each task. Other Treatments While standing at white board pt cued to erase letters A-D in alphabetical order. 50% out of the letters placed slightly to left to encourage scanning towards left. Pt unable to erase, point, or identify letter when therapist po ints to it. When cued to turn head, he does but does not appear to gaze in correct direction. When numbers and letters are written directly in midline, pt unable to verbalize correctly. Education OT Patient Education: Correct positioning, Energy conservation, Modified ADL techniques, Purpose of tx/functional activities, Rehab process, Safety issues, Transfer techniques, W/C management Teaching Recipient: Patient Teaching Methods: Demonstration, Discussion Response to Teaching: Reinforcement Needed BIMS CAM BIMS Expression of Ideas and Wants: Frequently Understanding Verbal Content: Sometimes Understands Brief Interview/Mental Status: Yes IRF TISHA BIMS: IRF TISHA BIMS Response (Comments) Value Repitition of Three Words One 1 Recalls Socks No, Could Not Recall 0 Recalls Blue No, Could Not Recall 0 Recalls Bed No, Could Not Recall 0 Year Missed by 5 Yrs/No Answer 0 Month Missed by 1 Mo/No Answer 0 Day Incorrect or No Answer 0 Total [address] Asses[address] 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 2=Patient will verbalize/demonstrate understanding of assistive devices/modifications for ADL. 3=Patient will improve strength/tolerance for activity to enable patient to perform ADL's. OT Education/Plan Problem List/Assessment Assessment: Decreased Activ Tolerance, Decreased Safety Aware, Decreased UE Strength, Impaired Bed Mobility, Impaired Cognition, Impaired Coordination, Impaired Funct Balance, Impaired Self-Care Skills, Restricted Funct UE ROM, Visual-Perceptual Deficit Discharge Recommendations Plan/Recommendations: Continue POC Therapy Discharge Recommendati: Post Acute OT Treatment Plan/Plan of Care Treatment,Training & Education: Yes Patient would benefit from OT for education, treatment and training to promote independence in ADL's, mobility, safety and/or upper extremity function for ADL's. Plan of Care: ADL Retraining, Caregiver Training, Cognitive Retraining, Functional Mobility, Group Exercise/Act as Ind, UE Funct Exercise/Act, UE Neuromus Re-Ed/Coord, Visual/Perceptual Retrain Treatment Duration: Nov 22, 2022 Frequency: At least 5 of 7 days/Wk (IRF) Estimated Hrs Per Day: 1.5 hours per day Rehab Potential: Fair Time Start Time: 14:40 Stop Time: 16:10 DATE: Nov 05, 2022 Total Time Billed (hr/min): 90 Billed Treatment Time 1 visit EVM (10 min) ADL x4 (60 min) FA (20 min) OT eval: ([id number]) Co-treat: [id number] (80 min) Estelle Morales OT Nov 05, 2022 15:40
--- NOTE | 2022-11-05 16:05 | Progress Note ---
MARIA LUISA SORIA 11/05/22 1605: Progress Note CC: CVA (subacute Right BUTTON BUTTONHOLE MARKER infarct 2/2 acute on chronic right subdural hemorrhage) HPI: Dani Bell is an 82yo M lifelong smoker with h/o heart and various blood vessel pathologies, presenting to the IRF of [facility] s/p CVA. He is being transfered from [facility], where he went in for complaints of b/l leg numbness and a dull headache. The Neurology dept. obtained a head CT that revealed multiple locations of brain infarcts and signs of acute on chronic hematoma. 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 He reported that he was independent of ADLs before the stroke, and now presents with the goal to regain strength and ambulation. 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 Hes smoked all his life .5 PPD. Denies drinking or recreational drugs. Doesnt recall having any major hobbies or excersise routines. FH: Tremor- Father Cancer- Brother, Son ROS: Constitutional: no symptoms reported EENTM: no symptoms reported Respiratory: no symptoms reported Cardiovascular: no symptoms reported Gastrointestinal: no symptoms reported Genitourinary: no symptoms reported Musculoskeletal: b/l LE weakness Skin: no symptoms reported Psychiatric/Neurological: Headache Exam: V/S: T(36.9) HR(63) RR(18) BP(129/72) SpO2(95 RA) General Appearance: no acute distress, fatigued Respiratory: Chest Non Tender, Lungs Clear, Normal Breath Sounds, No Accessory Muscle Use, No Respiratory Distress Cardiovascular: Regular Rate, Rhythm, No Murmurs, no rubs Gastrointestinal: Normal Bowel Sounds, no distension, no tenderness, soft Extremity: No Pedal Edema, normal peripheral pulse, essential tremors Neurologic/Psychiatric: Alert, Confused/disoriented, Full body tremors Skin: Normal Color, Warm/Dry Labs: unremarkable or N/A A: CVA RUL lung cancer b/l hilar LAD Chronic back pain Essential Tremor PAD CAD Tobacco abuse Advanced age Altered Mental Status 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 I reviewed and verified all information documented by the medical student and made modifications to such information, when appropriate. I personally performed the physical exam and medical decision making. Maria Luz Whaley Nov 05, 2022,20:39 MARIA LUISA SORIA Nov 05, 2022 16:05 MARIA LUZ WHALEY DO Nov 05, 2022 20:39
--- NOTE | 2022-11-05 16:15 | Physical Therapy Daily Note ---
PT Daily Note-Current Subjective Pt sitting on EOM working w/OT upon arrival. Pt agrees to PT/OT co-treat. Pt reports very tired to start tx. Pain Location: No Pain Reported Section J - Health Conditions 1. Rarely or not at all 2. Occasionally 3. Frequently 4. Almost constantly 8. Unable to answer Pain Effect on Sleep: 8 Pain Interference with Therapy: 8 Pain Interference w/Day-to-Day: 8 Mental Status Patient Orientation: Person Transfers SCALE: Activities may be completed with or without assistive devices. 7-Cvavnxhdob-hwtlccj completes the activity by him/herself with no assistance from a helper. 5-Set-up or Clean-up Assistance-helper sets up or cleans up; patient completes activity. [place] assists only prior to or following the activity. 4-Supervision or Touching Assistance-helper provides verbal cues and/or touching/steadying and/or contact guard assistance as patient completes activity. Assistance may be provided throughout the activity or intermittently. 3-Partial/Moderate Assistance-helper does LESS THAN HALF the effort. [place] lifts, holds or supports trunk or limbs, but provides less than half the effort. 2-Substantial/Maximal Assistance-helper does MORE THAN HALF the effort. [place] lifts or holds trunk or limbs and provides more than half the effort. 4-Tzkpjjtyj-qdszvd does ALL the effort. Patient does none of the effort to complete the activity. Or, the assistance of 2 or more helpers is required for the patient to complete the activity. If activity was not attempted, code reason: 7-Patient Refused. 9-Not Applicable-not attempted and the patient did not perform the activity before the current illness, exacerbation or injury. 10-Not Attempted due to Environmental Limitations-(lack of equipment, weather restraints, etc.). 88-Not Attempted due to Medical Conditions or Safety Concerns. Sit to Stand (QC): 4 Weight Bearing Full Weight Bearing Full Weight Bearing Gait Training Does the Patient Walk?: Yes Distance: 150' Walk 10 feet (QC): 4 Walk 50 ft with 2 Turns(QC): 4 Walk 150 ft (QC): 4 Gait Persons Needed: 1 Gait Assistive Device: FWW Wheelchair Training Does the Pt Use a Wheelchair?: Yes Type of Wheelchair: Manual Exercises Seated Therapy Exercises: Ankle pumps, Long arc quads, Hip flexion, Hip abd/add, Glut set Seated Reps: 15 Treatments Co-treat with PT for part of treatment secondary to fatigue, poor mobility, high fall risk, and the need of 2 skilled clinicians to progress indep and safety with adls and functional mobility. After OT finishes eval, PHARMACOLOGY ASSOCIATE joins tx. Pt amb. in hallway resting in [facility] and completes ADLs (see OT note). After ADLs, pt completes Seated Ex and Nurse & Med. Student visit with pt while resting. Pt returns to Therapy Gym to work on tracking and visual activity. After multiple attempts to find both letters and numbers during tracking, pt returns to room to rest in recliner. Pt left sitting in recliner, all needs within reach. OT modified call light to have raised button due to visual deficits. Pt able to demonstrate ability to use post modification. Assessment Current Status: Fair Progress Pt demonstrates very fatigued during tx, frequent RB. Pt has difficulty answering questions when asked due to both fatigue and possible aphasia. Visual field deficit is also demonstrated and increases need for both VC & TC during tx. PT Lap Welder Goals Lap Welder Goals PT Lap Welder Goals Time Frame: Dec 07, 2022 Roll Left & Right (QC): 6 Sit to Lying (QC): 6 Lying-Sitting on Side/Bed(QC): 6 Sit to Stand (QC): 4 (SBA for safety) Chair/Aay-yw-Iqfho Xfer(QC): 4 (SBA) Toilet Transfer (QC): 4 (SBA for safety) Car Transfer (QC): 4 (SBA for safety) Does the Patient Walk: Yes Walk 10 feet (QC): 4 (SBA for safety due to ataxia) Walk 50ft with 2 Turns (QC): 4 (SBA due to ataxia) Walk 150 ft (QC): 4 (SBA for safety due to ataxia) Walking 10ft on Uneven Surface: 4 (SBA for safety due to ataxia) 1 Step (curb) (QC): 4 (CGA for safety) 4 Steps (QC): 4 (CGA for safety) 12 Steps (QC): 4 (CGA for safety) Picking up an Object (QC): 1 (due to balance deficits) Does the Pt use WC or Scooter?: No Wheel 50 feet with 2 turns (QC: 3 Type: Manual Wheel 150 feet: 3 Type: Manual PT Plan Problem List Problem List: Activity Tolerance, Functional Strength Treatment/Plan Treatment Plan: Continue Plan of Care Treatment Plan: Bed Mobility, Concurrent Therapy, Education, Functional Activity Michael, Functional Strength, Group Therapy, Gait, Safety, Therapeutic Exercise, Transfers Treatment Duration: Dec 07, 2022 Frequency: At least 5 of 7 days/Wk (IRF) Estimated Hrs Per Day: 1.5 hours per day Patient and/or Family Agrees t: Yes Safety Risks/Education Patient Education: Correct Positioning, Safety Issues Teaching Recipient: Patient Teaching Methods: Discussion Response to Teaching: Reinforcement Needed Time Time In: 1450 Time Out: 1610 DATE: Nov 05, 2022 Total Billed Treatment Time: 80 Total Billed Treatment Co-treat: [id number] (80 min) 1,EX (15m), GT x2 (30m), FA x3 (35m) FABRIZIO RANGEL PTA Nov 05, 2022 16:15
[2022-11-05] MEDS ORDERED: ACETAMINOPHEN 325 MG TABLET ONE (16:55)
[2022-11-05] MEDS: ACETAMINOPHEN 325 MG TABLET PO PRN (17:00)
--- NOTE | 2022-11-05 17:36 | PM&R Post Admission Assessment ---
PM&R HP Date of Visit: Nov 05, 2022 Time of Visit: 17:30 History of Present Illness CC: CVA (subacute Right SHOVEL OILER infarct 2/2 acute on chronic right subdural hemorrhage) HPI: Dani Bell is an 82yo M lifelong smoker with h/o heart and various blood vessel pathologies, presenting to the IRF of [facility] s/p CVA. He is being transfered from [facility], where he went in for complaints of b/l leg numbness and a dull headache. The Neurology dept. obtained a head CT that revealed multiple locations of brain infarcts and signs of acute on chronic hematoma. 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 He reported that he was independent of ADLs before the stroke, and now presents with the goal to regain strength and ambulation. 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 Hes smoked all his life .5 PPD. Denies drinking or recreational drugs. Doesnt recall having any major hobbies or excersise routines. FH: Tremor- Father Cancer- Brother, Son ROS: Constitutional: no symptoms reported EENTM: no symptoms reported Respiratory: no symptoms reported Cardiovascular: no symptoms reported Gastrointestinal: no symptoms reported Genitourinary: no symptoms reported Musculoskeletal: b/l LE weakness Skin: no symptoms reported Psychiatric/Neurological: Headache Exam: V/S: T(36.9) HR(63) RR(18) BP(129/72) SpO2(95 RA) General Appearance: no acute distress, fatigued Respiratory: Chest Non Tender, Lungs Clear, Normal Breath Sounds, No Accessory Muscle Use, No Respiratory Distress Cardiovascular: Regular Rate, Rhythm, No Murmurs, no rubs Gastrointestinal: Normal Bowel Sounds, no distension, no tenderness, soft Extremity: No Pedal Edema, normal peripheral pulse, essential tremors Neurologic/Psychiatric: Alert, Confused/disoriented, Full body tremors Skin: Normal Color, Warm/Dry Labs: unremarkable or N/A A: CVA RUL lung cancer b/l hilar LAD Chronic back pain Essential Tremor PAD CAD Tobacco abuse Advanced age Altered Mental Status left cervical verterbral artery near occlusive stenosis Dysphagia P: Oncology consult Respiratory consult aggressive OT/PT/ST CBC CMP Supportive care SORIAMARIA LUISA Nov 05, 2022 16:05 Past Gapsxjy-Uzwzyj-Opunor Hx Past Med/Social Hx: Reviewed Nursing Past Med/Soc Hx, Reviewed and Corrections made Patient Social History Marrital Status: single Employed/Student: retired Alcohol Use: Denies Use Smoking Status: Current Everyday Smoker Past Medical History Respiratory: COPD Cardiac: Coronary Artery Disease, High Cholesterol, Hypertension, Peripheral Vascular Neurological: Dementia, Stroke Loss of Vision: Bilateral Hearing Impairment: Hard of Hearing Prior Level of Function Bed Mobility: 6 Transfers: 6 Gait: 6 Stairs: 6 Wheelchair Mobility: 9 Indoor Mobility (Ambulation): Independent Stairs: Independent Prior Devices Use: Walker Self Care: Unknown Functional Cognition: Unknown Current Level of Fuctioning Roll Left to Right: 4 Sit to Lyin (mod assist) Lying to Sitting/Side of Bed: 4 Sit to Stand: 4 Chair/Itu-rx-Mptxi Xfer: 3 Car Transfer: 3 (mod assist) Does the Patient Walk: Yes Mode of Locomotion: Walk Anticipated Mode of Locomotion: Walk Walk 10 feet: 4 Walk 50 ft with 2 Turns: 4 Walk 150 ft: 4 Walking 10ft on uneven surface: 3 Gait Assistive Device: FWW Does the Pt Use a Wheelchair: Yes Wheel 50 ft with 2 turns: 88 Wheel 150 ft: 88 Type of Wheelchair: Manual #of Steps: 4 1 Step (curb): 3 (mod assist) 4 Steps: 3 (mod assist) 12 Steps: 88 Picking up an Object: 88 Eatin Oral Hygiene: 1 Shower/Bathe Self: 10 Upper Body Dressin (assist with buttons only) Lower Body Dressin (assist with button and belt) On/Off Footwear: 4 Toileting Hygiene: 7 PM&R Allergy/Meds/Data Review Allergies Coded Allergies: No Known Drug Allergies (Unverified , 11/05/22) Home Medications Scheduled Aspirin (Aspirin EC), 81 MG PO DAILY, (Reported) Atorvastatin Calcium (Atorvastatin Calcium), 80 MG PO DAILY, (Reported) Carvedilol (Carvedilol), 12.5 MG PO BID WITH MEALS, (Reported) Ferrous Gluconate (Ferrous Gluconate), 324 MG PO Q48H, (Reported) Methocarbamol (Methocarbamol), 500 MG PO BID, (Reported) Metoprolol Tartrate (Metoprolol Tartrate), 50 MG PO BID, (Reported) Multivitamin (Multivitamin), 1 EACH PO DAILY, (Reported) Sennosides/Docusate Sodium (Senna S Tablet), 1 EACH PO BID, (Reported) Vitamin B Complex (Vitamin B Complex), 1 EACH PO DAILY, (Reported) Scheduled PRN Acetaminophen (Tylenol Arthritis), 650 MG PO Q8H PRN for PAIN-MILD (1-4), (Reported) Hydralazine HCl (Hydralazine HCl), 20 MG PO Q8H PRN for SBP >160, (Reported) Tramadol HCl (Tramadol HCl), 50 MG PO Q6H PRN for PAIN-MODERATE (5-7), (Reported) Current Medications Current Medications Reviewed Review of Systems Constitutional: see HPI, dizziness, malaise, weakness EENTM: no symptoms reported Respiratory: no symptoms reported Cardiovascular: no symptoms reported Gastrointestinal: no symptoms reported Genitourinary: no symptoms reported Musculoskeletal: back pain, joint pain Skin: no symptoms reported Psychiatric/Neurological: Anxiety, Depressed, Numbness, Weakness All Other Systems Reviewed Negative Unless Noted: Yes Physical Exam Physical Exam Vital Signs Vital Signs - First Documented 11/05/22 15:35 Temp 36.9 Pulse 63 Resp 18 B/P (MAP) 129/72 (91) Pulse Ox 95 O2 Delivery Room Air Capillary Refill : Height, Weight, BMI Height: '" Weight: lbs. oz. kg; 18.98 BMI Method: General Appearance: No Apparent Distress, WD/WN, Chronically ill Eyes: Bilateral Eye Normal Inspection, Bilateral Eye PERRL HEENT: PERRL/EOMI, Normal ENT Inspection, Pharynx Normal Neck: Full Range of Motion, Normal Inspection, Non Tender, Supple, Carotid Bruit Respiratory: Chest Non Tender, Lungs Clear, No Accessory Muscle Use, No Respiratory Distress, Decreased Breath Sounds Cardiovascular: Regular Rate, Rhythm, No Edema, No Gallop, No JVD, No Murmur, Normal Peripheral Pulses Gastrointestinal: Normal Bowel Sounds, No Organomegaly, No Pulsatile Mass, Non Tender, Soft Back: Normal Inspection, No CVA Tenderness, No Vertebral Tenderness Extremity: Normal Capillary Refill, Normal Inspection, Normal Range of Motion, Non Tender, No Calf Tenderness, No Pedal Edema Neurologic/Psychiatric: Alert, analytical sciences director II-XII Norm as Tested, Abnormal Gait, Depressed Affect, Disoriented, Motor Weakness, Sensory Deficit, Other (Tremor noted upper extremities, generalized ataxia) Skin: Normal Color, Warm/Dry Lymphatic: No Adenopathy PM&R Medical Assessment & Plan REHAB/MEDICAL ASSESSMENT AND PLAN: REHAB IMPAIRMENT GROUP: CVA ETIOLOGIC DIAGNOSIS: CVA The comorbidities that impact the patients function and/or functional outcome by: end stage COPD, smoker, lung mass, flat affect REHAB PLAN: The patient is being admitted to our comprehensive inpatient rehabilitation facility and can tolerate the intensity of service consisting of at least: 180 minutes of therapy a day, 5 out of 7 days a week Rehab treatment will consist of: PT and OT will focus on use of assistive device increase falls increase independence in ADLs in order to go back home to independent living The patient/family has a good understanding of our discharge process and will benefit from an interdisciplinary inpatient rehabilitation program. The patient has potential to make improvement and is in need of at least two of the following multidisciplinary therapies including but not limited to physical, occupational, speech, and prosthetics and orthotics. Additionally the patient will need services from respiratory, nutritional services, wound care, psychology, etc. (Customize this to each patient). Given the patients complex condition and risk of further medical complications, rehabilitation services cannot be safely or effectively provided at a lower level of care such as a retirement facility. BARRIERS TO DISCHARGE: Cognitive deficit ESTIMATED LOS: 14 days DISPOSITION: Home with family RELEVANT CHANGES SINCE PREADMISSION SCREENING: I have compared the patients medical and functional status at the time of the preadmission screening and there are: No changes PROGNOSIS: Fair to poor given presumed cancer REHABILITATION GOALS: 1. [PT and OT will focus on use of assistive device increase falls increase independence in ADLs in order to go back home to independent living All the above goals were reviewed with the patient and he/she is in agreement. By signing this document, I acknowledge that I have personally performed a full physical examination on this patient within 24 hours of admission to this inpatient rehabilitation facility and have determined the patient to be able to tolerate the above course of treatment at an intensive level for a reasonable period of time. I will be completing a detailed individualized Plan of Care for this patient by day #4 of the patients stay based upon the Preadmission Screen, the Post-Admission Evaluation, and the therapy evaluations. Admission Dx/Comorbidities: (1) Subdural hematoma ICD Codes: S06.5XAA - Traumatic subdural hemorrhage with loss of consciousness status unknown, initial encounter Assessment/Plan Assessment and Plan Assess & Plan/Chief Complaint A: CVA RUL lung mass with suspected metastasis b/l hilar LAD on CT scan Chronic back pain Essential Tremor PAD CAD Tobacco abuse Advanced age Altered Mental Status left cervical verterbral artery near occlusive stenosis Dysphagia Plan: Supportive care Inpatient rehab protocol Fall risk Regain independent function VIVI WHALEY DO Nov 05, 2022 17:36
[2022-11-05 18:13] VITALS: BP 131/73
[2022-11-05] MEDS: polyethylene glycoL POWDER 17 GM (MIRALAX) PACK PO SCH (19:35)
[2022-11-05] MEDS: SENNA W/DOCUSATE (SENOKOT S) TABLET PO SCH ×2 (19:36→20:20)
[2022-11-05 20:11] VITALS: BP 148/72
[2022-11-05] MEDS: DOCUSATE SODIUM 100 MG (COLACE) CAP PO SCH (20:20)
[2022-11-05] MEDS: METHOCARBAMOL 500 MG (ROBAXIN) TABLET PO SCH (20:20)
[2022-11-05] MEDS: DICLOFENAC 1% GEL 100 GM (VOLTAREN) TUBE TOP SCH (20:20)
--- NOTE | 2022-11-06 05:26 | PM&R Progress Note ---
Subjective HPI/CC On Admission Date Seen by Provider: Nov 06, 2022 Time Seen by Provider: 11:00 Subjective/Events-last exam 11/06/2022: Patient doing well Participating in therapy Appears to be very weak Expressive aphasia a challenge for communication Reviewed labs Review of Systems General: Fatigue, Malaise Neurological: Weakness, Incoordination Objective Exam Vital Signs Vital Signs Date Time Temp Pulse Resp B/P (MAP) Pulse Ox O2 Delivery O2 Flow Rate FiO2 11/06/22 20:30 Room Air 11/06/22 19:58 36.1 51 20 169/63 (98) 96 Capillary Refill : General Appearance: No Apparent Distress, WD/WN, Chronically ill HEENT: PERRL/EOMI, Normal ENT Inspection, Pharynx Normal Neck: Full Range of Motion, Normal Inspection, Non Tender, Supple, Carotid Bruit Respiratory: Chest Non Tender, Lungs Clear, No Accessory Muscle Use, No Respiratory Distress, Decreased Breath Sounds Cardiovascular: Regular Rate, Rhythm, No Edema, No Gallop, No JVD, No Murmur, Normal Peripheral Pulses Gastrointestinal: Normal Bowel Sounds, No Organomegaly, No Pulsatile Mass, Non Tender, Soft Back: Normal Inspection, No CVA Tenderness, No Vertebral Tenderness Extremity: Normal Capillary Refill, Normal Inspection, Normal Range of Motion, Non Tender, No Calf Tenderness, No Pedal Edema Neurologic/Psychiatric: 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 FIM Transfers Therapy Code Descriptions/Definitions Functional Vance Measure: 0=Not Assessed/NA 4=Minimal Assistance 1=Total Assistance 5=Supervision or Setup 2=Maximal Assistance 6=Modified Vance 3=Moderate Assistance 7=Complete IndependenceSCALE: Activities may be completed with or without assistive devices. 9-Xxyypiorct-pejucnx completes the activity by him/herself with no assistance from a helper. 5-Set-up or Clean-up Assistance-helper sets up or cleans up; patient completes activity. [place] assists only prior to or following the activity. 4-Supervision or Touching Assistance-helper provides verbal cues and/or touching/steadying and/or contact guard assistance as patient completes activity. Assistance may be provided throughout the activity or intermittently. 3-Partial/Moderate Assistance-helper does LESS THAN HALF the effort. [place] lifts, holds or supports trunk or limbs, but provides less than half the effort. 2-Substantial/Maximal Assistance-helper does MORE THAN HALF the effort. [place] lifts or holds trunk or limbs and provides more than half the effort. 6-Kioocfdls-cudcdg does ALL the effort. Patient does none of the effort to complete the activity. Or, the assistance of 2 or more helpers is required for the patient to complete the activity. If activity was not attempted, code reason: 7-Patient Refused. 9-Not Applicable-not attempted and the patient did not perform the activity before the current illness, exacerbation or injury. 10-Not Attempted due to Environmental Limitations-(lack of equipment, weather restraints, etc.). 88-Not Attempted due to Medical Conditions or Safety Concerns. Roll Left to Right (QC): 4 Sit to Lying (QC): 3 (mod assist) Sit to Stand (QC): 4 Chair/Lzz-fx-Imlxh Xfer(QC): 3 Car Transfer (QC): 3 (mod assist) Gait Training Does the Patient Walk?: Yes Distance: 150' Walk 10 feet (QC): 4 Walk 50 ft with 2 Turns(QC): 4 Walk 150 ft (QC): 4 Walking 10ft/uneven surface-QC: 3 Gait Persons Needed: 1 Gait Assistive Device: FWW Wheelchair Training Does the Pt Use a Wheelchair?: Yes Wheel 50 ft with 2 turns (QC): 88 Wheel 150 ft (QC): 88 Type of Wheelchair: Manual Stair Training #of Steps: 4 1 Step (curb) (QC): 3 (mod assist) 4 Steps (QC): 3 (mod assist) 12 Steps (QC): 88 Balance Picking up an Object (QC): 88 ADL-Treatment Eating (QC): 1 Oral Hygiene (QC): 1 Shower/Bathe Self (QC): 10 Upper Body Dressing (QC): 3 (assist with buttons only) Lower Body Dressing (QC): 3 (assist with button and belt) On/Off Footwear (QC): 4 Toileting Hygiene (QC): 7 Assessment/Plan Assessment and Plan Assess & Plan/Chief Complaint A: CVA RUL lung mass with suspected metastasis b/l hilar LAD on CT scan Chronic back pain Essential Tremor PAD CAD Tobacco abuse Advanced age Altered Mental Status left cervical verterbral artery near occlusive stenosis Dysphagia Hypokalemia 3.3 Anemia Mild leukocytosis Plan: Supportive care Inpatient rehab protocol Fall risk Regain independent function 11/06/2022: Aggressive rehab Pain control Supportive care (1) Subdural hematoma VIVI WHALEY DO Nov 06, 2022 05:26
--- NOTE | 2022-11-06 05:26 | Individualized Plan of Care ---
Individualized Plan of Care Rehab Nursing IPOC Order Admission Date Nov 05, 2022 at 14:30 Current Orders Orders Admission Order(Inpt,Obs,Sdc) (11/05/22 11:08) Vital Signs: Per Unit Policy ( 08,16,00 (11/05/22 11:08) Jose Espinal , (11/05/22 11:08) Sequential Compression Device (11/05/22 11:08) Field Automobile Adjuster-Inpt Rehab Con (11/05/22 11:08) Rehab Nursing Orders-Ipoc (11/05/22 11:08) Physical Therapy Rehab Orders (11/05/22 11:08) Occupational Therapy Rehab Ord (11/05/22 11:08) Speech Therapy Rehab Orders (11/05/22 11:08) Cbc With Automated Diff (11/06/22 06:00) Comprehensive Metabolic Panel (11/06/22 06:00) Precautions (Aru) (11/05/22 11:08) Weekly Weight WEEK (11/05/22 11:08) Rehab-Intensity Of Therapy (11/05/22 11:08) Initiate Admission Nursing Pro .admission (11/05/22 11:08) Alprazolam Tablet (Xanax Tablet) (11/05/22 11:15) Calcium Carbonate Chew Tablet (Antacid C (11/05/22 11:15) Diphenhydramine Tablet (Benadryl Tablet) (11/05/22 11:15) Docusate Sodium Capsule (Colace Capsule) (11/05/22 21:00) Docusate Sodium Capsule (Colace Capsule) (11/05/22 11:15) Bisacodyl Suppository (Dulcolax Supposit (11/05/22 11:15) Lactulose Oral Solution (Enulose Oral So (11/05/22 11:15) Na Phos/Na Biphos Enema (Fleet Enema Fran (11/05/22 11:15) Guaifenesin/Codeine Syrup (Robitussin Ac (11/05/22 11:15) Loperamide Tablet (Imodium Tablet) (11/05/22 11:15) Melatonin Tablet (Melatonin Tablet) (11/05/22 11:15) Polyethylene Glycol Powder Pkt (Miralax (11/05/22 21:00) Ondansetron Oral Dissolve Tab (Zofran (11/05/22 11:15) Senna S Tablet (Senokot S Tablet) (11/05/22 21:00) Acetaminophen Tablet/Caplet (Tylenol T (11/05/22 11:15) Vte Contraindication (11/05/22 11:08) Initiate Admission Nursing Pro .admission (11/05/22 11:08) Admission Arrival Bed Request (11/05/22 14:48) Follow-Up Appointment (11/05/22 15:04) General/Regular (11/05/22 Lunch) Ensure Plus Vanilla (11/05/22 16:39) Acetaminophen Tablet/Caplet (Tylenol T (11/05/22 16:55) Heating Pad (11/05/22 17:30) Diclofenac 1% Gel (Voltaren 1% Gel) (11/05/22 21:00) Acetaminophen Arthritis (Tylenol Arthrit (11/05/22 17:45) Aspirin Enteric Coated Tablet (Ecotrin T (11/06/22 09:00) Atorvastatin Tablet (Lipitor Tablet) (11/06/22 09:00) Carvedilol Tablet (Coreg Tablet) (11/05/22 18:00) Hydralazine Tablet (Apresoline Tablet) (11/05/22 17:45) Methocarbamol Tablet (Robaxin Tablet) (11/05/22 21:00) Senna S Tablet (Senokot S Tablet) (11/05/22 21:00) Tramadol Tablet (Ultram Tablet) (11/05/22 17:45) Therapeutic Multivitamin Tab (Vitamins, (11/06/22 07:00) (Nf) Vitamin B Complex (11/06/22 09:00) Ibuprofen Tablet (Motrin Tablet) (11/05/22 17:45) Ferrous Sulfate Tablet (Feosol Tablet) (11/06/22 07:15) Speech Therapy Orders (11/06/22 08:38) Ensure Enlive BID (11/06/22 11:50) Sb6: Soft And Bite-Sized (11/06/22 Breakfast) Patient Visit (11/06/22 ) Dysphagia Evaluation Std (11/06/22 ) Dysphagia Therapy (11/06/22 ) Patient Visit (11/06/22 ) Functional Activities, Ea 15 (11/06/22 ) Gait Training, Ea 15 Min (11/06/22 ) Exercise Therap, Ea 15 Min (11/06/22 ) Sb6: Soft And Bite-Sized (11/06/22 Dinner) Potassium Chloride (Tablet) (Klor Con Ta (11/07/22 07:00) Rehab Nursing Orders: Ongoing Assess. of Cognitive Status, Ongoing Assess. of Function Status, Bladder Management, Bladder Scan, Bladder Training, Bowel Management, Bowel Training, Disease Management & Educaiton, DVT Prophylaxis, Fall Prevention, Fluid/Electrolyte/Nutrition Mgmt, Infection Prevention, Medication Management & Education, Management of Risks & Complications, Mallika gement of Skin Intergrity, Nutrition Management, Pain Management, Patient/Family Support, Safety Management, Swallow Precautions Intensity of Therapy to be met Patient to be seen: Min.3h per day/5 of 7d PT IPOC Problem List: Activity Tolerance, Functional Strength Treatment Plan: Continue Plan of Care Bed Mobility, Concurrent Therapy, Education, Functional Activity Michael, Functional Strength, Group Therapy, Gait, Safety, Therapeutic Exercise, Transfers Treatment Duration: Dec 07, 2022 Frequency: At least 5 of 7 days/Wk (IRF) Estimated Hrs Per Day: 1.5 hours per day OT IPOC Problems: Decreased Activ Tolerance, Decreased Safety Aware, Decreased UE Strength, Impaired Bed Mobility, Impaired Cognition, Impaired Coordination, Impaired Funct Balance, Impaired Self-Care Skills, Restricted Funct UE ROM, Visual-Perceptual Deficit OT Treatment, Training and Edu: Yes Plan of Care: ADL Retraining, Caregiver Training, Cognitive Retraining, Functional Mobility, Group Exercise/Act as Ind, UE Funct Exercise/Act, UE Neuromus Re-Ed/Coord, Visual/Perceptual Retrain Treatment Duration: Nov 22, 2022 Frequency: At least 5 of 7 days/Wk (IRF) Estimated Hrs Per Day: 1.[address] IPOC Speech Therapy Treatment Plan: Continue Plan of Care Treatment Duration: Nov 06, 2022 Frequency: Modified Program (IRF) Estimated Hrs Per Day: Other Field Automobile Adjuster/Case Mgmt Field Automobile Adjuster/Case Managemen: Discharge Planning Dietitian/Roof Technician Dietitian/Roof Technician to monitor nutritional status and make changes and/or recommendations as needed and work with speech pathology on dietary upgrades as the occur. Physician IPOC Medical Issues being managed closely and that require the 24 hour availability of a physician: Recent catastrophic stroke will require close monitoring along with lung mass and a smoker presumed neoplastic will be higher risk for decompensation Medical Issues: Bowel/Bladder Function, DVT Prophylaxis, Falls Precautions, Fluid/Electrolyte/Nutrition Balance, Infection Protection, Pain Management Brief Synthesis of Preadmission Screen, Post-Admission Evaluation, and Therapy Evaluations: PT and OT will focus on regaining function with use of assistive devices and sp eech therapy will work on cognition in order to return back to independent living Medical Prognosis: Fair Anticipated Length of Stay: 10 days VIVI WHALEY DO Nov 06, 2022 05:26
[2022-11-06 05:36] LABS: BASOPHILS # (AUTO) 0.1 10^3/uL (0.0-0.1); BASOPHILS % (AUTO) 1 % (0-10); EOSINOPHILS # (AUTO) 0.2 10^3/uL (0.0-0.3); EOSINOPHILS % (AUTO) 2 % (0-10); HEMATOCRIT 35 % (40-54); LYMPHOCYTES # (AUTO) 0.9 10^3/uL (1.0-4.0); LYMPHOCYTES % (AUTO) 8 % (12-44); MEAN CORPUSCULAR HEMOGLOBIN 33 pg (25-34); MEAN CORPUSCULAR HGB CONC 35 g/dL (32-36); MEAN CORPUSCULAR VOLUME 96 fL (80-99); MEAN PLATELET VOLUME 10.2 fL (9.0-12.2); MONOCYTES # (AUTO) 1.3 10^3/uL (0.0-1.0); MONOCYTES % (AUTO) 11 % (0-12); NEUTROPHILS # (AUTO) 8.5 10^3/uL (1.8-7.8); NEUTROPHILS % (AUTO) 76 % (42-75); PLATELET COUNT 371 10^3/uL (130-400); WHITE BLOOD COUNT 11.1 10^3/uL (4.3-11.0)
[2022-11-06 06:07] LABS: ALBUMIN 3.4 GM/DL (3.2-4.5); BILIRUBIN,TOTAL 0.5 MG/DL (0.1-1.0); CALCIUM 9.1 MG/DL (8.5-10.1); CREATININE SERUM 0.78 MG/DL (0.60-1.30); POTASSIUM 3.3 MMOL/L (3.6-5.0); TOTAL PROTEIN 6.7 GM/DL (6.4-8.2)
[2022-11-06] MEDS: MULTIVIT W/MINERALS TAB (THERAGRAN M) PO SCH (06:32)
[2022-11-06] MEDS: FERROUS SULF 325 MG (IRON) TAB PO SCH (07:14)
[2022-11-06] MEDS: DOCUSATE SODIUM 100 MG (COLACE) CAP PO SCH ×2 (07:48→20:17)
[2022-11-06] MEDS: METHOCARBAMOL 500 MG (ROBAXIN) TABLET PO SCH ×2 (07:48→20:29)
[2022-11-06] MEDS: ASPIRIN E.C. 81 MG (ECOTRIN) TAB PO SCH (07:48)
[2022-11-06] MEDS: DICLOFENAC 1% GEL 100 GM (VOLTAREN) TUBE TOP SCH ×4 (07:49→20:30)
[2022-11-06] MEDS: SENNA W/DOCUSATE (SENOKOT S) TABLET PO SCH ×4 (07:50→20:17)
[2022-11-06] MEDS: ACETAMINOPHEN 325 MG TABLET PO PRN ×2 (07:51→17:33)
[2022-11-06] MEDS: polyethylene glycoL POWDER 17 GM (MIRALAX) PACK PO SCH ×2 (07:51→20:17)
[2022-11-06 08:00] VITALS: BP 170/84
[2022-11-06] MEDS ORDERED: NON-FORMULARY MEDICATION 1 EA EA (Vitamin B Complex 1 EACH) PO SCH (09:00)
--- NOTE | 2022-11-06 09:07 | Occupational Ther Daily Note ---
OT Current Status-Daily Note Subjective Pt reports chronic pain in back, no numerical value given. Mental Status/Objective Patient Orientation: Person ADL-Treatment Therapy Code Descriptions/Definitions Functional [place] Measure: 0=Not Assessed/NA 4=Minimal Assistance 1=Total Assistance 5=Supervision or Setup 2=Maximal Assistance 6=Modified [place] 3=Moderate Assistance 7=Complete IndependenceSCALE: Activities may be completed with or without assistive devices. 6-Jzjixjngnc-tiabmwr completes the activity by him/herself with no assistance from a helper. 5-Set-up or Clean-up Assistance-helper sets up or cleans up; patient completes activity. [place] assists only prior to or following the activity. 4-Supervision or Touching Assistance-helper provides verbal cues and/or touching/steadying and/or contact guard assistance as patient completes activity. Assistance may be provided throughout the activity or intermittently. 3-Partial/Moderate Assistance-helper does LESS THAN HALF the effort. [place] lifts, holds or supports trunk or limbs, but provides less than half the effort. 2-Substantial/Maximal Assistance-helper does MORE THAN HALF the effort. [place] lifts or holds trunk or limbs and provides more than half the effort. 6-Qoigkutuz-jpwqwa does ALL the effort. Patient does none of the effort to complete the activity. Or, the assistance of 2 or more helpers is required for the patient to complete the activity. If activity was not attempted, code reason: 7-Patient Refused. 9-Not Applicable-not attempted and the patient did not perform the activity before the current illness, exacerbation or injury. 10-Not Attempted due to Environmental Limitations-(lack of equipment, weather restraints, etc.). 88-Not Attempted due to Medical Conditions or Safety Concerns. Shower/Bathe Self (QC): 3 Upper Body Dressing (QC): 2 Lower Body Dressing (QC): 4 On/Off Footwear: 5 Toileting Hygiene (QC): 3 Toilet Transfer (QC): 4 Pt sitting on toilet at OT arrival. Assist needed for rectal kaela care secondary to tremors. Sponge bath completed seated at sink. Assist only to wash buttocks. Pt was able to reach all body parts, however had difficulty with getting thorough cleaning again due to intense tremors. Poor motor planning exhibited when given shirt to don. "I don't know what to do." Step by step sequencing cues needed. Max a to thread UEs and bring overhead. When given enough time, pt was able to thread BLE's through underwear/pants but needed cues for correct or ientation. CGA for safety as he stood to pull clothing over his hips. Other Treatment Mod cues/assist for walker management and directional/scanning cues Education OT Patient Education: Correct positioning, Energy conservation, Modified ADL techniques, Purpose of tx/functional activities, Safety issues Teaching Recipient: Patient Teaching Methods: Demonstration, Discussion Response to Teaching: Reinforcement Needed OT Short Term Goals Short Term Goals Time Frame: Nov 13, 2022 Eatin Oral hygiene: 2 Toileting hygiene: 3 Shower/bathe self: 3 Upper body dressin Lower body dressin Putting on/taking off footwear: 5 OT Information Resources Manager Goals Information Resources Manager Goals Time Frame: Nov 22, 2022 Acute change in mental status: 1 Inattention: 2 Disorganized thinkin Altered level of consciousness: 0 Eating (QC): 3 Oral Hygiene (QC): 3 Toileting Hygiene (QC): 5 Shower/Bathe Self (QC): 5 Upper Body Dressing (QC): 5 Lower Body Dressing (QC): 5 On/Off Footwear (QC): 5 Additional Goals: 1-Demonstrate ADL Tasks, 2-Verbalize Understanding, 3- ImproveStrength/Michael 1=Demonstrate adherence to instructed precautions during ADL tasks. 2=Patient will verbalize/demonstrate understanding of assistive devices/modifications for ADL. 3=Patient will improve strength/tolerance for activity to enable patient to perform ADL's. OT Education/Plan Problem List/Assessment Assessment: Decreased Activ Tolerance, Decreased Safety Aware, Decreased UE Strength, Impaired Cognition, Impaired Coordination, Impaired Funct Balance, Impaired Self-Care Skills, Restricted Funct UE ROM, Visual-Perceptual Deficit Discharge Recommendations Plan/Recommendations: Continue POC Therapy Discharge Recommendati: Post Acute OT Treatment Plan/Plan of Care Treatment,Training & Education: Yes Patient would benefit from OT for education, treatment and training to promote independence in ADL's, mobility, safety and/or upper extremity function for ADL's. Plan of Care: ADL Retraining, Caregiver Training, Cognitive Retraining, Functional Mobility, Group Exercise/Act as Ind, UE Funct Exercise/Act, UE Neuromus Re-Ed/Coord, Visual/Perceptual Retrain Treatment Duration: Nov 22, 2022 Frequency: At least 5 of 7 days/Wk (IRF) Estimated Hrs Per Day: 1.5 hours per day Rehab Potential: Fair Time Start Time: 08:30 Stop Time: 09:15 DATE: Nov 06, 2022 Total Time Billed (hr/min): 45 Billed Treatment Time 1 visit ADL x3 Estelle Morales OT Nov 06, 2022 09:07
[2022-11-06 09:11] VITALS: BP_SYST 100; BP_SYST 170; BP_DIAS 59; BP_DIAS 84
[2022-11-06 09:24] VITALS: BP 119/69
--- NOTE | 2022-11-06 09:34 | ST Dysphagia Evaluation ---
Speech Evaluation-General Medical Diagnosis CVA Onset Date: Nov 05, 2022 Therapy Diagnosis Therapy Diagnosis: Mild Oropharyngeal Dysphagia Precautions Precautions: Fall, Pressure Ulcer, Aspiration Precautions/Isolations: Aspiration, Fall Prevention, Standard Precautions Referral Referring Physician: Dr. Salguero Reason for Referral: Evaluation/Treatment Medical History Pertinent Medical History: Arthritis, CAD, CVA, HTN, Smoking Current History The patient is an 82 year-old male with a past medical history significant for arthritis, CAD, CVA, HTN, smoking, chronic subdural hematoma, and essential tremors, who presented to the hospital with increased bilateral left>right weakness and numbness. 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 A CT of the chest revealed a lung mass. Reviewed History: Yes Social History Current Living Status: Children Speech PLF/Current-Dysphagia Prior Level of Function The patient was unable to provide the clinician with prior medical history regarding his P.O. intake secondary to the present expressive aphasia. Subjective The patient's RN contacted the clinician on this date and stated the staff had concerns regarding the patient's oropharyngeal swallowing function secondary to a choking incident which occurred with thin liquids during teeth brushing. Due to the concern, speech language pathology will complete a clinical bedside swallowing evaluation on this date. Per patient's RN, the patient consumed pills one at a time with thin liquids without difficulties. The patient was seated upright in bed, awake and alert, upon entrance to his room by the clinician. The patient greeted the clinician appropriately and was agreeable to participation in the clinical bedside swallowing evaluation. Cognitive Status Patient Orientation: Person Oral Motor Skills Dentition: Edentalous Denture Type: Full- Upper Current Food Consistancy: Regular, Thin Liquids Ability to Follow Directions: Fair Oral Expression Ability: Moderate Impairment Voice Voice Phonatory-Based Quality: Normal Voice Pitch: Normal Voice Loudness: Normal Face Facial Symmetry: Symmetrical (Grossly symmetrical at rest.) Oral-Facial Assessment Oral-Facial Dentition: Normal Labial Seal Description: Normal Smile: Normal Puff Cheeks: Normal Lingual Protrusion: Normal Lingual ROM: Normal Lingual Strength: Normal Volitional Dry Swallow: Yes Can Clear Throat Volitionally: Yes Dysphagia Evaluation Consistencies Presented: Regular, Thin Liquid, Pureed The patient was able to draw material from a teaspoon and straw appropriately. The clinician provided the boluses to the patient due to the patient's baseline tremors. A Gerald cup was attempted, however, remained with reduced benefit due to the severity of the patient's tremors. The patient displayed prolonged mastication and bolus formation. Complete oral bolus transfer was accomplished. Mild oral residue remained following the swallow which was reduced with a subsequent swallow of thin liquid. Laryngeal elevation was present to palpation. The patient consumed two teaspoons of thin liquid, eight straw drinks of thin li quid, five teaspoons of puree, and a bite of a saltine cracker. The patient displayed one delayed throat clear following one of eight straw drinks of thin liquid. Additional s/s of suspected aspiration were not displayed with the remaining P.O. trials. The patient's vocal quality remained clear following each bolus provided. Recommendations: - SB6 (Soft and Bite Sized) with thin liquids, as tolerated. - Fully upright and alert for P.O. intake. - Small, single bite and sips. - Alternate solids and liquids on a 1:1 ratio to improve oral and pharyngeal clearance. - Monitor for s/s of suspected aspiration with P.O. intake. If demonstrated, contact speech pathology. The results and recommendations were discussed and shared with the patient following the study. Additionally, the clinician discussed the results with the patient's treating RN. Dysphagia Evaluation Summary The patient demonstrated mild oropharyngeal dysphagia characterized by decreased lingual coordination, prolonged mastication of solid consistencies, and intermittent poor airway protection in the presence of bolus material. Speech Short Term Goals Short Term Goals Short Term Goals 1. The patient will demonstrate safe swallowing strategies with 80% accuracy, independently. Time Frame-STG: One Week. Speech Paymaster Of Purses Goals Paymaster Of Purses Goals 1. The patient will tolerate the least restrictive diet consistency without s/s of suspected aspiration. Time Frame: Two Weeks. Speech-Plan Treatment Plan Speech Therapy Treatment Plan: Continue Plan of Care Treatment Duration: Nov 20, 2022 Frequency: Modified [place] (IRF) (Four to five times per day.) Estimated Hrs Per Day: .5 hour per day Rehab Potential: Fair Pt/Family Agrees to Plan: Yes Safety Risks/Education Teaching Recipient: Patient Teaching Methods: Discussion Response to Teaching: Reinforcement Needed Education Topics Provided: Results, Recommendations, Safe Swallowing Strategies Time Speech Therapy Time In: 11:30 Speech Therapy Time Out: 12:00 DATE: Nov 06, 2022 Total Billed Time: 30 Billed Treatment Time 1, MISHA GARCIA ELIZABETH ST Nov 06, 2022 09:34
--- NOTE | 2022-11-06 10:56 | Physical Therapy Daily Note ---
PT Daily Note-Current Subjective Pt. up in recliner, agrees to Rx, Pt. states he doesnt really remember when asked where he lives and where he grew up. Pt. asks for a drink of water several times during the rx and shares that he cannot hold the cup (uncontrolled shaking) Pt. denies pain or dizziness or fatigue Pain Location: No Pain Reported Section J - Health Conditions 1. Rarely or not at all 2. Occasionally 3. Frequently 4. Almost constantly 8. Unable to answer Pain Effect on Sleep: 1 Pain Interference with Therapy: 1 Pain Interference w/Day-to-Day: 1 Appearance thin , pale, does not make eye contact, has difficulty focusing eyes for tasks Mental Status Patient Orientation: Person Transfers SCALE: Activities may be completed with or without assistive devices. 2-Kiispubnpq-zuytofr completes the activity by him/herself with no assistance from a helper. 5-Set-up or Clean-up Assistance-helper sets up or cleans up; patient completes activity. [place] assists only prior to or following the activity. 4-Supervision or Touching Assistance-helper provides verbal cues and/or touching/steadying and/or contact guard assistance as patient completes activity. Assistance may be provided throughout the activity or intermittently. 3-Partial/Moderate Assistance-helper does LESS THAN HALF the effort. [place] lifts, holds or supports trunk or limbs, but provides less than half the effort. 2-Substantial/Maximal Assistance-helper does MORE THAN HALF the effort. [place] lifts or holds trunk or limbs and provides more than half the effort. 1-Bxshxlcbi-mkseai does ALL the effort. Patient does none of the effort to complete the activity. Or, the assistance of 2 or more helpers is required for the patient to complete the activity. If activity was not attempted, code reason: 7-Patient Refused. 9-Not Applicable-not attempted and the patient did not perform the activity before the current illness, exacerbation or injury. 10-Not Attempted due to Environmental Limitations-(lack of equipment, weather restraints, etc.). 88-Not Attempted due to Medical Conditions or Safety Concerns. Roll Left & Right (QC): 4 Sit to Lying (QC): 4 Lying to Sitting/Side of Bed(Q: 4 Sit to Stand (QC): 6 Chair/Tgk-oh-Iumwy Xfer(QC): 4 pt. requires instruction and tactile guidance for rolling, sup to sit to sup as well as approach to chair when walking and backing to chair Weight Bearing Full Weight Bearing Full Weight Bearing Gait Training Does the Patient Walk?: Yes Walk 10 feet (QC): 4 Walk 50 ft with 2 Turns(QC): 4 Walk 150 ft (QC): 4 Gait Persons Needed: 1 Gait Assistive Device: FWW pt. needs min to mod assist to move, steer and turn FWW . Pt takes has small step length and hesitates to forward the walker Exercises Supine Ex: Bridging, Ankle pumps, Quad Set, Rolling, Glut sets, Heel Slides, Short Arc Quads, Scooting, Straight leg raise, Hip abd/add Supine Reps: 12 Seated Therapy Exercises: Ankle pumps, Sit to stand, Long arc quads, Hip flexion, Hip abd/add Seated Reps: 15 NuStep Minutes: 10 NuStep Workload: 1 Treatments TRFs, gait, therex, balance and coordination drills Assessment Current Status: Fair Progress needs safety and guidance assist for all as well as CGA to min for balance and stability. PT Carpet Binder Goals Correction Goals PT Correction Goals Time Frame: Dec 07, 2022 Roll Left & Right (QC): 6 Sit to Lying (QC): 6 Lying-Sitting on Side/Bed(QC): 6 Sit to Stand (QC): 4 (SBA for safety) Chair/Ceh-lu-Ymwvb Xfer(QC): 4 (SBA) Toilet Transfer (QC): 4 (SBA for safety) Car Transfer (QC): 4 (SBA for safety) Does the Patient Walk: Yes Walk 10 feet (QC): 4 (SBA for safety due to ataxia) Walk 50ft with 2 Turns (QC): 4 (SBA due to ataxia) Walk 150 ft (QC): 4 (SBA for safety due to ataxia) Walking 10ft on Uneven Surface: 4 (SBA for safety due to ataxia) 1 Step (curb) (QC): 4 (CGA for safety) 4 Steps (QC): 4 (CGA for safety) 12 Steps (QC): 4 (CGA for safety) Picking up an Object (QC): 1 (due to balance deficits) Does the Pt use WC or Scooter?: No Wheel 50 feet with 2 turns (QC: 3 Type: Manual Wheel 150 feet: 3 Type: Manual PT Plan Treatment/Plan Treatment Plan: Continue Plan of Care Treatment Plan: Bed Mobility, Concurrent Therapy, Education, Functional Activity Michael, Functional Strength, Group Therapy, Gait, Safety, Therapeutic Exercise, Transfers Treatment Duration: Dec 07, 2022 Frequency: At least 5 of 7 days/Wk (IRF) Estimated Hrs Per Day: 1.5 hours per day Patient and/or Family Agrees t: Yes Safety Risks/Education Patient Education: Gait Training, Transfer Techniques, Correct Positioning, Disease Process, Safety Issues Teaching Recipient: Patient Teaching Methods: Demonstration, Discussion Response to Teaching: Return Demonstration (with tactile and VCs), Reinforcement Needed Time Time In: 930 Time Out: 1100 DATE: Nov 06, 2022 Total Billed Treatment Time: 90 Total Billed Treatment 1,GT30m,FA30m,EX30m ARIANE MEYER UKE OPERATOR Nov 06, 2022 10:56
--- NOTE | 2022-11-06 11:49 | Occupational Ther Daily Note ---
OT Current Status-Daily Note Subjective Pt alert, sitting in recliner. Pt agrees to therapy. No c/o pain Mental Status/Objective Patient Orientation: Person, Place, Time, Situation ADL-Treatment Therapy Code Descriptions/Definitions Functional [place] Measure: 0=Not Assessed/NA 4=Minimal Assistance 1=Total Assistance 5=Supervision or Setup 2=Maximal Assistance 6=Modified [place] 3=Moderate Assistance 7=Complete IndependenceSCALE: Activities may be completed with or without assistive devices. 7-Zjbzncmsmh-fucxjkd completes the activity by him/herself with no assistance fr om a helper. 5-Set-up or Clean-up Assistance-helper sets up or cleans up; patient completes activity. [place] assists only prior to or following the activity. 4-Supervision or Touching Assistance-helper provides verbal cues and/or touching/steadying and/or contact guard assistance as patient completes activity. Assistance may be provided throughout the activity or intermittently. 3-Partial/Moderate Assistance-helper does LESS THAN HALF the effort. [place] lifts, holds or supports trunk or limbs, but provides less than half the effort. 2-Substantial/Maximal Assistance-helper does MORE THAN HALF the effort. [place] lifts or holds trunk or limbs and provides more than half the effort. 7-Fkaspkyxr-qpfijl does ALL the effort. Patient does none of the effort to complete the activity. Or, the assistance of 2 or more helpers is required for the patient to complete the activity. If activity was not attempted, code reason: 7-Patient Refused. 9-Not Applicable-not attempted and the patient did not perform the activity before the current illness, exacerbation or injury. 10-Not Attempted due to Environmental Limitations-(lack of equipment, weather restraints, etc.). 88-Not Attempted due to Medical Conditions or Safety Concerns. Other Treatment Working on scanning and mobility while ambulating throughout [facility]. Pt able to coordinate L turns more easily than R turns. Assist needed to adjust FWW during R turns. Pt requires verbal cues to turn L/R and straight with mobility. Pt is able to see items on L side more readily than R side. Discussed this with OTR/L. Pt given Gerald cup due to hand tremors when drinking. After session, pt lying in bed with call light/phone in reach. All needs met in room. OT Short Term Goals Short Term Goals Time Frame: Nov 13, 2022 Eatin Oral hygiene: 2 Toileting hygiene: 3 Shower/bathe self: 3 Upper body dressin Lower body dressin Putting on/taking off footwear: 5 OT Wrapper Counter Goals Assisted Goals Time Frame: Nov 22, 2022 Acute change in mental status: 1 Inattention: 2 Disorganized thinkin Altered level of consciousness: 0 Eating (QC): 3 Oral Hygiene (QC): 3 Toileting Hygiene (QC): 5 Shower/Bathe Self (QC): 5 Upper Body Dressing (QC): 5 Lower Body Dressing (QC): 5 On/Off Footwear (QC): 5 Additional Goals: 1-Demonstrate ADL Tasks, 2-Verbalize Understanding, 3- ImproveStrength/Michael 1=Demonstrate adherence to instructed precautions during ADL tasks. 2=Patient will verbalize/demonstrate understanding of assistive devices/modifications for ADL. 3=Patient will improve strength/tolerance for activity to enable patient to perform ADL's. OT Education/Plan Problem List/Assessment Assessment: Decreased Activ Tolerance, Decreased Safety Aware, Impaired Coordination, Impaired Self-Care Skills, Visual-Perceptual Deficit Discharge Recommendations Plan/Recommendations: Continue POC Treatment Plan/Plan of Care Patient would benefit from OT for education, treatment and training to promote independence in ADL's, mobility, safety and/or upper extremity function for ADL's. Plan of Care: ADL Retraining, Caregiver Training, Cognitive Retraining, Functional Mobility, Group Exercise/Act as Ind, UE Funct Exercise/Act, UE Neuromus Re-Ed/Coord, Visual/Perceptual Retrain Treatment Duration: Nov 22, 2022 Frequency: At least 5 of 7 days/Wk (IRF) Estimated Hrs Per Day: 1.5 hours per day Rehab Potential: Fair Time Start Time: 11:00 Stop Time: 11:30 DATE: Nov 06, 2022 Total Time Billed (hr/min): 30 Billed Treatment Time 1 visit-FA 2 (30 min) GARRETT HOLDER Nov 06, 2022 11:49
[2022-11-06] MEDS: IBUPROFEN TABLET 200 MG TAB PO PRN ×2 (12:43→20:30)
[2022-11-06 17:31] VITALS: BP 162/75
[2022-11-06 19:58] VITALS: BP 169/63
[2022-11-07] MEDS: MULTIVIT W/MINERALS TAB (THERAGRAN M) PO SCH (06:52)
[2022-11-07] MEDS: KCL 10 MEQ TAB (MICRO K) PO SCH (06:52)
[2022-11-07 07:36] VITALS: BP 153/74
--- NOTE | 2022-11-07 08:16 | Occupational Ther Daily Note ---
OT Current Status-Daily Note Subjective Pt has difficulty expressing wants/needs. Appearance Pt left sitting in recliner, all needs within reach. Mental Status/Objective Patient Orientation: Person ADL-Treatment Therapy Code Descriptions/Definitions Functional [place] Measure: 0=Not Assessed/NA 4=Minimal Assistance 1=Total Assistance 5=Supervision or Setup 2=Maximal Assistance 6=Modified [place] 3=Moderate Assistance 7=Complete IndependenceSCALE: Activities may be completed with or without assistive devices. 8-Eezcjmngco-qnskhlm completes the activity by him/herself with no assistance from a helper. 5-Set-up or Clean-up Assistance-helper sets up or cleans up; patient completes activity. [place] assists only prior to or following the activity. 4-Supervision or Touching Assistance-helper provides verbal cues and/or touching/steadying and/or contact guard assistance as patient completes activity. Assistance may be provided throughout the activity or intermittently. 3-Partial/Moderate Assistance-helper does LESS THAN HALF the effort. [place] lift s, holds or supports trunk or limbs, but provides less than half the effort. 2-Substantial/Maximal Assistance-helper does MORE THAN HALF the effort. [place] lifts or holds trunk or limbs and provides more than half the effort. 2-Vibnxjllu-dmhywr does ALL the effort. Patient does none of the effort to complete the activity. Or, the assistance of 2 or more helpers is required for the patient to complete the activity. If activity was not attempted, code reason: 7-Patient Refused. 9-Not Applicable-not attempted and the patient did not perform the activity before the current illness, exacerbation or injury. 10-Not Attempted due to Environmental Limitations-(lack of equipment, weather restraints, etc.). 88-Not Attempted due to Medical Conditions or Safety Concerns. Eating (QC): 2 Entire session focused on improving independence with eating. Multiple compensatory/adaptive strategies trialed. Not only does pt struggle with BUE tremors but also his head shaking intensely when he attempts to bring silverware to mouth. OT provided pt with built up handle and curved right spoon. 2.5# wrist weights added to R hand and bedside table was raised to where pt's right shoulder was resting on table and in slightly less than 90 degrees abduction. Focus on providing proximal stability and reducing distance from food to mouth. Mod deep pressure applied to dorsal side of hand and R shoulder. With these modifications, pt was able to feed self. Pt is unable to verbalize his wants/needs and expressing when he is finished or wants more. He did eat all of his cream of wheat and apple sauce but requires cues to initiate every bite. Significant time required to complete meal. Education OT Patient Education: Correct positioning, Modified ADL techniques, Purpose of tx/functional activities, Use of adapted equipment Teaching Recipient: Patient Teaching Methods: Demonstration, Discussion Response to Teaching: Verbalize Understanding, Return Demonstration, Reinforcement Needed OT Short Term Goals Short Term Goals Time Frame: Nov 13, 2022 Eatin Oral hygiene: 2 Toileting hygiene: 3 Shower/bathe self: 3 Upper body dressin Lower body dressin Putting on/taking off footwear: 5 OT Retirement Goals Retirement Goals Time Frame: Nov 22, 2022 Acute change in mental status: 1 Inattention: 2 Disorganized thinkin Altered level of consciousness: 0 Eating (QC): 3 Oral Hygiene (QC): 3 Toileting Hygiene (QC): 5 Shower/Bathe Self (QC): 5 Upper Body Dressing (QC): 5 Lower Body Dressing (QC): 5 On/Off Footwear (QC): 5 Additional Goals: 1-Demonstrate ADL Tasks, 2-Verbalize Understanding, 3- ImproveStrength/Michael 1=Demonstrate adherence to instructed precautions during ADL tasks. 2=Patient will verbalize/demonstrate understanding of assistive devices/modifications for ADL. 3=Patient will improve strength/tolerance for activity to enable patient to perform ADL's. OT Education/Plan Problem List/Assessment Assessment: Decreased Activ Tolerance, Decreased Safety Aware, Decreased UE Strength, Impaired Cognition, Impaired Coordination, Impaired Funct Balance, Impaired Self-Care Skills, Restricted Funct UE ROM, Visual-Perceptual Deficit Discharge Recommendations Plan/Recommendations: Continue POC Therapy Discharge Recommendati: Post Acute OT (Pt will possibly need meterman care if unable to get 24/7 assist. ) Treatment Plan/Plan of Care Patient would benefit from OT for education, treatment and training to promote independence in ADL's, mobility, safety and/or upper extremity function for ADL's. Plan of Care: ADL Retraining, Caregiver Training, Cognitive Retraining, Functional Mobility, Group Exercise/Act as Ind, UE Funct Exercise/Act, UE Neuromus Re-Ed/Coord, Visual/Perceptual Retrain Treatment Duration: Nov 22, 2022 Frequency: At least 5 of 7 days/Wk (IRF) Estimated Hrs Per Day: 1.5 hours per day Rehab Potential: Fair Time Start Time: 07:15 Stop Time: 08:15 DATE: Nov 07, 2022 Total Time Billed (hr/min): 60 Billed Treatment Time 1 visit ADL x4 Estelle Morales OT Nov 07, 2022 08:16
[2022-11-07] MEDS: ASPIRIN E.C. 81 MG (ECOTRIN) TAB PO SCH (08:24)
[2022-11-07] MEDS: METHOCARBAMOL 500 MG (ROBAXIN) TABLET PO SCH ×2 (08:25→20:27)
[2022-11-07] MEDS: DOCUSATE SODIUM 100 MG (COLACE) CAP PO SCH ×2 (08:25→20:30)
[2022-11-07] MEDS: polyethylene glycoL POWDER 17 GM (MIRALAX) PACK PO SCH ×2 (08:26→20:30)
[2022-11-07] MEDS: SENNA W/DOCUSATE (SENOKOT S) TABLET PO SCH ×4 (08:26→20:30)
[2022-11-07] MEDS: DICLOFENAC 1% GEL 100 GM (VOLTAREN) TUBE TOP SCH ×5 (08:28→20:28)
--- NOTE | 2022-11-07 10:02 | Occupational Ther Daily Note ---
OT Current Status-Daily Note Subjective When asked if patient needed to use the toilet he verbalizes "I can try." Pt was continent of urine in toilet. Appearance Pt returned to sitting in recliner, all needs within reach, alarm set. Mental Status/Objective Patient Orientation: Person ADL-Treatment Therapy Code Descriptions/Definitions Functional [place] Measure: 0=Not Assessed/NA 4=Minimal Assistance 1=Total Assistance 5=Supervision or Setup 2=Maximal Assistance 6=Modified [place] 3=Moderate Assistance 7=Complete IndependenceSCALE: Activities may be completed with or without assistive devices. 9-Dxgrvqsnxz-wbtvazv completes the activity by him/herself with no assistance from a helper. 5-Set-up or Clean-up Assistance-helper sets up or cleans up; patient completes activity. [place] assists only prior to or following the activity. 4-Supervision or Touching Assistance-helper provides verbal cues and/or touching/steadying and/or contact guard assistance as patient completes activity. Assistance may be provided throughout the activity or intermittently. 3-Partial/Moderate Assistance-helper does LESS THAN HALF the effort. [place] lifts, holds or supports trunk or limbs, but provides less than half the effort. 2-Substantial/Maximal Assistance-helper does MORE THAN HALF the effort. [place] lifts or holds trunk or limbs and provides more than half the effort. 5-Hbdhfzdxc-ugohxt does ALL the effort. Patient does none of the effort to complete the activity. Or, the assistance of 2 or more helpers is required for the patient to complete the activity. If activity was not attempted, code reason: 7-Patient Refused. 9-Not Applicable-not attempted and the patient did not perform the activity before the current illness, exacerbation or injury. 10-Not Attempted due to Environmental Limitations-(lack of equipment, weather restraints, etc.). 88-Not Attempted due to Medical Conditions or Safety Concerns. Toileting Hygiene (QC): 2 Toilet Transfer (QC): 4 When asked if patient needed to use the toilet he verbalizes "I can try." Pt was continent of urine in toilet. Sit<>stand: SBA. Max cues for scanning and object avoidance while ambulating to/from bathroom. Pt does not initiate clothing management, despite verbal and tactile cues given. Thus, he is dependent to complete each step. Slow but steady gait with mobility. Education OT Patient Education: Correct positioning, Modified ADL techniques, Purpose of tx/functional activities, Safety issues, Transfer techniques Teaching Recipient: Patient Teaching Methods: Discussion Response to Teaching: Unable to Return Demonstration, Reinforcement Needed OT Short Term Goals Short Term Goals Time Frame: Nov 13, 2022 Eatin Oral hygiene: 2 Toileting hygiene: 3 Shower/bathe self: 3 Upper body dressin Lower body dressin Putting on/taking off footwear: 5 OT Assisted Goals Assisted Goals Time Frame: Nov 22, 2022 Acute change in mental status: 1 Inattention: 2 Disorganized thinkin Altered level of consciousness: 0 Eating (QC): 3 Oral Hygiene (QC): 3 Toileting Hygiene (QC): 5 Shower/Bathe Self (QC): 5 Upper Body Dressing (QC): 5 Lower Body Dressing (QC): 5 On/Off Footwear (QC): 5 Additional Goals: 1-Demonstrate ADL Tasks, 2-Verbalize Understanding, 3- ImproveStrength/Michael 1=Demonstrate adherence to instructed precautions during ADL tasks. 2=Patient will verbalize/demonstrate understanding of assistive devices/modifications for ADL. 3=Patient will improve strength/tolerance for activity to enable patient to perform ADL's. OT Education/Plan Problem List/Assessment Assessment: Decreased Activ Tolerance, Decreased Safety Aware, Decreased UE Strength, Impaired Cognition, Impaired Coordination, Impaired I ADL's, Impaired Self-Care Skills, Visual-Perceptual Deficit Discharge Recommendations Plan/Recommendations: Continue POC Treatment Plan/Plan of Care Treatment,Training & Education: Yes Patient would benefit from OT for education, treatment and training to promote independence in ADL's, mobility, safety and/or upper extremity function for ADL's. Plan of Care: ADL Retraining, Caregiver Training, Cognitive Retraining, Functional Mobility, Group Exercise/Act as Ind, UE Funct Exercise/Act, UE Neuromus Re-Ed/Coord, Visual/Perceptual Retrain Treatment Duration: Nov 22, 2022 Frequency: At least 5 of 7 days/Wk (IRF) Estimated Hrs Per Day: 1.5 hours per day Rehab Potential: Fair Time Start Time: 09:44 Stop Time: 10:02 DATE: Nov 07, 2022 Total Time Billed (hr/min): 18 Billed Treatment Time 1 visit ADL Estelle Morales OT Nov 07, 2022 10:02
--- NOTE | 2022-11-07 10:44 | PM&R Progress Note ---
Subjective HPI/CC On Admission Date Seen by Provider: Nov 07, 2022 Time Seen by Provider: 12:00 Subjective/Events-last exam 11/07/2022: Patient doing really well Improved expressive aphasia Lungs are clear Eating and drinking pretty well No other concerns 11/06/2022: Patient doing well Participating in therapy Appears to be very weak Expressive aphasia a challenge for communication Reviewed labs Review of Systems General: Fatigue, Malaise Neurological: Weakness, Incoordination, Change in speech Objective Exam Vital Signs Vital Signs Date Time Temp Pulse Resp B/P (MAP) Pulse Ox O2 Delivery O2 Flow Rate FiO2 11/07/22 20:30 Room Air 11/07/22 19:29 36.4 59 16 129/69 (89) 95 Capillary Refill : General Appearance: No Apparent Distress, WD/WN, Chronically ill HEENT: PERRL/EOMI, Normal ENT Inspection, Pharynx Normal Neck: Full Range of Motion, Normal Inspection, Non Tender, Supple, Carotid Bruit Respiratory: Chest Non Tender, Lungs Clear, No Accessory Muscle Use, No Respiratory Distress, Decreased Breath Sounds Cardiovascular: Regular Rate, Rhythm, No Edema, No Gallop, No JVD, No Murmur, Normal Peripheral Pulses Gastrointestinal: Normal Bowel Sounds, No Organomegaly, No Pulsatile Mass, Non Tender, Soft Back: Normal Inspection, No CVA Tenderness, No Vertebral Tenderness Extremity: Normal Capillary Refill, Normal Inspection, Normal Range of Motion, Non Tender, No Calf Tenderness, No Pedal Edema Neurologic/Psychiatric: Alert, paper inspector II-XII Norm as Tested, Abnormal Gait, Depressed Affect, Disoriented, Motor Weakness, Sensory Deficit, Other (Tremor noted upper extremities, generalized ataxia) Skin: Normal Color, Warm/Dry Lymphatic: No Adenopathy Results/Procedures Lab Patient resulted labs reviewed. FIM Transfers Therapy Code Descriptions/Definitions Functional [place] Measure: 0=Not Assessed/NA 4=Minimal Assistance 1=Total Assistance 5=Supervision or Setup 2=Maximal Assistance 6=Modified [place] 3=Moderate Assistance 7=Complete IndependenceSCALE: Activities may be completed with or without assistive devices. 7-Wncwggnrgh-adnyewk completes the activity by him/herself with no assistance from a helper. 5-Set-up or Clean-up Assistance-helper sets up or cleans up; patient completes activity. [place] assists only prior to or following the activity. 4-Supervision or Touching Assistance-helper provides verbal cues and/or touching/steadying and/or contact guard assistance as patient completes activity. Assistance may be provided throughout the activity or intermittently. 3-Partial/Moderate Assistance-helper does LESS THAN HALF the effort. [place] lifts, holds or supports trunk or limbs, but provides less than half the effort. 2-Substantial/Maximal Assistance-helper does MORE THAN HALF the effort. [place] lifts or holds trunk or limbs and provides more than half the effort. 8-Yqicwivld-skdsuc does ALL the effort. Patient does none of the effort to complete the activity. Or, the assistance of 2 or more helpers is required for the patient to complete the activity. If activity was not attempted, code reason: 7-Patient Refused. 9-Not Applicable-not attempted and the patient did not perform the activity before the current illness, exacerbation or injury. 10-Not Attempted due to Environmental Limitations-(lack of equipment, weather restraints, etc.). 88-Not Attempted due to Medical Conditions or Safety Concerns. Roll Left to Right (QC): 4 Sit to Lying (QC): 4 Sit to Stand (QC): 6 Chair/Vkr-qe-[place]aj[place] Xfer(QC): 4 Car Transfer (QC): 3 (mod assist) Gait Training Does the Patient Walk?: Yes Distance: 150' Walk 10 feet (QC): 4 Walk 50 ft with 2 Turns(QC): 4 Walk 150 ft (QC): 4 Walking 10ft/uneven surface-QC: 3 Gait Persons Needed: 1 Gait Assistive Device: FWW Wheelchair Training Does the Pt Use a Wheelchair?: Yes Wheel 50 ft with 2 turns (QC): 88 Wheel 150 ft (QC): 88 Type of Wheelchair: Manual Stair Training #of Steps: 4 1 Step (curb) (QC): 3 (mod assist) 4 Steps (QC): 3 (mod assist) 12 Steps (QC): 88 Balance Picking up an Object (QC): 88 ADL-Treatment Eating (QC): 2 Oral Hygiene (QC): 1 Shower/Bathe Self (QC): 3 Upper Body Dressing (QC): 2 Lower Body Dressing (QC): 4 On/Off Footwear (QC): 5 Toileting Hygiene (QC): 2 Toilet Transfer (QC): 4 Assessment/Plan Assessment and Plan Assess & Plan/Chief Complaint 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 intake (1) Subdural hematoma VIVI WHALEY DO Nov 07, 2022 10:44
--- NOTE | 2022-11-07 11:01 | Physical Therapy Daily Note ---
PT Daily Note-Current Subjective Pt. sitting in recliner, quiet but responds when spoken to. Denies pain Pain Location: No Pain Reported Section J - Health Conditions 1. Rarely or not at all 2. Occasionally 3. Frequently 4. Almost constantly 8. Unable to answer Pain Effect on Sleep: 1 Pain Interference with Therapy: 1 Pain Interference w/Day-to-Day: 1 Transfers SCALE: Activities may be completed with or without assistive devices. 6-Gdgzwcfajv-dvudqpl completes the activity by him/herself with no assistance from a helper. 5-Set-up or Clean-up Assistance-helper sets up or cleans up; patient completes activity. [place] assists only prior to or following the activity. 4-Supervision or Touching Assistance-helper provides verbal cues and/or touching/steadying and/or contact guard assistance as patient completes activity. Assistance may be provided throughout the activity or intermittently. 3-Partial/Moderate Assistance-helper does LESS THAN HALF the effort. [place] lifts, holds or supports trunk or limbs, but provides less than half the effort. 2-Substantial/Maximal Assistance-helper does MORE THAN HALF the effort. [place] lifts or holds trunk or limbs and provides more than half the effort. 6-Damrcjwxq-bxhtut does ALL the effort. Patient does none of the effort to complete the activity. Or, the assistance of 2 or more helpers is required for the patient to complete the activity. If activity was not attempted, code reason: 7-Patient Refused. 9-Not Applicable-not attempted and the patient did not perform the activity before the current illness, exacerbation or injury. 10-Not Attempted due to Environmental Limitations-(lack of equipment, weather restraints, etc.). 88-Not Attempted due to Medical Conditions or Safety Concerns. Roll Left & Right (QC): 4 Sit to Lying (QC): 4 Lying to Sitting/Side of Bed(Q: 4 Sit to Stand (QC): 4 Chair/Xnp-nz-Sisam Xfer(QC): 4 pt. requires instruction 70% of time, delays beginning the task and waits or questions what he should do Weight Bearing Full Weight Bearing Full Weight Bearing Gait Training Does the Patient Walk?: Yes Walk 10 feet (QC): 4 Walk 50 ft with 2 Turns(QC): 4 Walk 150 ft (QC): 4 Gait Persons Needed: 1 Gait Assistive Device: FWW pt. denies visual issues but needs steering of FWW for every turn even subtle direction turns. no LOB , takes small steps, shuffles at times Exercises Supine Ex: Bridging, Rolling, Lower trunk rotation, Short Arc Quads, Scooting, Straight leg raise, Hip abd/add Supine Reps: 15 NuStep Minutes: 10 NuStep Workload: 1 Treatments TRFs, gait, therex, balance Assessment Current Status: Good Progress gives good effort, fatigues with activity, needs supervision/ CGA for all mobility PT Television Writer Goals Snf Goals PT Snf Goals Time Frame: Dec 07, 2022 Roll Left & Right (QC): 6 Sit to Lying (QC): 6 Lying-Sitting on Side/Bed(QC): 6 Sit to Stand (QC): 4 (SBA for safety) Chair/Imm-oq-Wztxp Xfer(QC): 4 (SBA) Toilet Transfer (QC): 4 (SBA for safety) Car Transfer (QC): 4 (SBA for safety) Does the Patient Walk: Yes Walk 10 feet (QC): 4 (SBA for safety due to ataxia) Walk 50ft with 2 Turns (QC): 4 (SBA due to ataxia) Walk 150 ft (QC): 4 (SBA for safety due to ataxia) Walking 10ft on Uneven Surface: 4 (SBA for safety due to ataxia) 1 Step (curb) (QC): 4 (CGA for safety) 4 Steps (QC): 4 (CGA for safety) 12 Steps (QC): 4 (CGA for safety) Picking up an Object (QC): 1 (due to balance deficits) Does the Pt use WC or Scooter?: No Wheel 50 feet with 2 turns (QC: 3 Type: Manual Wheel 150 feet: 3 Type: Manual PT Plan Treatment/Plan Treatment Plan: Continue Plan of Care Treatment Plan: Bed Mobility, Concurrent Therapy, Education, Functional Activity Michael, Functional Strength, Group Therapy, Gait, Safety, Therapeutic Exercise, Transfers Treatment Duration: Dec 07, 2022 Frequency: At least 5 of 7 days/Wk (IRF) Estimated Hrs Per Day: 1.5 hours per day Patient and/or Family Agrees t: Yes Safety Risks/Education Patient Education: Gait Training, Transfer Techniques, Correct Positioning, Safety Issues Teaching Recipient: Patient Teaching Methods: Demonstration, Discussion Response to Teaching: Verbalize Understanding, Return Demonstration, Reinforcement Needed Time Time In: 1000 Time Out: 1100 DATE: Nov 07, 2022 Total Billed Treatment Time: 60 Total Billed Treatment 1,GT30m,EX30m ARIANE MEYER CERTIFIED CAREGIVER Nov 07, 2022 11:01
--- NOTE | 2022-11-07 12:47 | ST Cognitive Linguistic Eval ---
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 Salguero Reason for Referral: Evaluation/Treatment Medical History Pertinent Medical History: Arthritis, CAD, CVA, HTN, Smoking Current History The patient is an 82 year-old male with a past medical history significant for arthritis, CAD, CVA, HTN, smoking, chronic subdural hematoma, and essential tremors, who presented to the hospital with increased bilateral left>right weakness and numbness. A head CT revealed a subacute R ACCREDITATION COORDINATOR. A CT of the chest revealed a lung mass. Reviewed History: Yes Social History Current Living Status: Children Speech PLF-Current Status Prior Level of Function Due to the patient's expressive and receptive language deficits, the patient was unable to provide prior level of function information to the clinician. Subjective The patient was seated upright in his recliner, awake and alert, upon entrance to the patient's room by the clinician. The patient greeted the clinician ap propriately and was agreeable to participation in the cognitive linguistic assessment. Language Eval: Auditory Comprehends Simple Yes/No Ques: Functional (87.5% accuracy with mild verbal repetition of question.) Indent/Objects Multiple Concepcion: Mild (Mild to moderate.) Follows 1-Step Commands: Mild (With additional processing time provided.) Follows General Conversations: Moderate Language Eval: Verbal Language Completes Spontaneous Greeting: Functional Produces Auto, Serial Info: Moderate Imitates Simple Words/Phrases: Moderate Word Finding: Severe Requests Basic Needs: Moderate States Basic Personal Info: Moderate Cognitive Patient Orientation The patient was not oriented to month, year, or location through verbalizations, yes/no responses, or identification in a field of two. Objective Cognitive Domain The patient's cognitive evaluation will occur at a later time following improvement of language skills. Objective Impression The patient demonstrated a receptive and expressive language impairment (expressive>receptive). The patient does display 87.5% accuracy with simple yes and no questions. Yes and no questions should be utilized at this time for the most effective method of communication for the patient. A communication board was introduced on this date and will continue to be practiced throughout skilled treatment sessions. Speech Short Term Goals Short Term Goals Short Term Goals 1. The patient will demonstrate safe swallowing strategies with 80% accuracy, independently. 2. The patient will display 85% accuracy with confrontational naming of familiar items. Time Frame-STG: One Week. Speech Care Home Goals Care Home Goals 1. The patient will tolerate the least restrictive diet consistency without s/s of suspected aspiration. 1. The patient will demonstrate increased cognitive linguistic skills for safe discharge to the least restrictive environment. Time Frame: Two Weeks. Speech-Plan Treatment Plan Speech Therapy Treatment Plan: Continue Plan of Care Treatment Duration: Nov 06, 2022 Frequency: Modified Program (IRF) Estimated Hrs Per Day: .5 hour per day Rehab Potential: Guarded Safety Risks/Education Teaching Recipient: Patient Teaching Methods: Discussion Response to Teaching: Reinforcement Needed Education Topics Provided: Results, Recommendations, Plan of Care Time Speech Therapy Time In: 09:00 Speech Therapy Time Out: 09:30 DATE: Nov 07, 2022 Total Billed Time: 30 Billed Treatment Time 1, TAMICA HESS [facility] Nov 07, 2022 12:47
--- NOTE | 2022-11-07 13:22 | Physical Therapy Daily Note ---
PT Daily Note-Current Subjective Pt. agreed to Rx. Pain Location: No Pain Reported Section J - Health Conditions 1. Rarely or not at all 2. Occasionally 3. Frequently 4. Almost constantly 8. Unable to answer Pain Effect on Sleep: 1 Pain Interference with Therapy: 1 Pain Interference w/Day-to-Day: 1 Mental Status Patient Orientation: Normal For Age Transfers SCALE: Activities may be completed with or without assistive devices. 4-Kzoqpsbfid-ggznama completes the activity by him/herself with no assistance from a helper. 5-Set-up or Clean-up Assistance-helper sets up or cleans up; patient completes activity. [place] assists only prior to or following the activity. 4-Supervision or Touching Assistance-helper provides verbal cues and/or touching/steadying and/or contact guard assistance as patient completes activity. Assistance may be provided throughout the activity or intermittently. 3-Partial/Moderate Assistance-helper does LESS THAN HALF the effort. [place] lifts, holds or supports trunk or limbs, but provides less than half the effort. 2-Substantial/Maximal Assistance-helper does MORE THAN HALF the effort. [place] lifts or holds trunk or limbs and provides more than half the effort. 3-Bxwoxjoqa-gjhucg does ALL the effort. Patient does none of the effort to complete the activity. Or, the assistance of 2 or more helpers is required for the patient to complete the activity. If activity was not attempted, code reason: 7-Patient Refused. 9-Not Applicable-not attempted and the patient did not perform the activity before the current illness, exacerbation or injury. 10-Not Attempted due to Environmental Limitations-(lack of equipment, weather restraints, etc.). 88-Not Attempted due to Medical Conditions or Safety Concerns. all TRFs CGA to SBA Weight Bearing Full Weight Bearing Full Weight Bearing Gait Training Does the Patient Walk?: Yes Gait Assistive Device: FWW 150frw0 FWW CGA and full guidance and steering of FWW required, no LOB, slightly improved gait pattern Exercises Seated Therapy Exercises: Ankle pumps, Sit to stand Seated Reps: 10 Treatments gait, sit to stands, LE EX, up in recliner in reclined position after Rx, call vergara at hand and alarm insitu Assessment Current Status: Good Progress PT Hydropress Operator Goals Assisted Goals PT Hydropress Operator Goals Time Frame: Dec 07, 2022 Roll Left & Right (QC): 6 Sit to Lying (QC): 6 Lying-Sitting on Side/Bed(QC): 6 Sit to Stand (QC): 4 (SBA for safety) Chair/Ztd-wg-Pllzu Xfer(QC): 4 (SBA) Toilet Transfer (QC): 4 (SBA for safety) Car Transfer (QC): 4 (SBA for safety) Does the Patient Walk: Yes Walk 10 feet (QC): 4 (SBA for safety due to ataxia) Walk 50ft with 2 Turns (QC): 4 (SBA due to ataxia) Walk 150 ft (QC): 4 (SBA for safety due to ataxia) Walking 10ft on Uneven Surface: 4 (SBA for safety due to ataxia) 1 Step (curb) (QC): 4 (CGA for safety) 4 Steps (QC): 4 (CGA for safety) 12 Steps (QC): 4 (CGA for safety) Picking up an Object (QC): 1 (due to balance deficits) Does the Pt use WC or Scooter?: No Wheel 50 feet with 2 turns (QC: 3 Type: Manual Wheel 150 feet: 3 Type: Manual PT Plan Treatment/Plan Treatment Plan: Continue Plan of Care Treatment Plan: Bed Mobility, Concurrent Therapy, Education, Functional Activity Michael, Functional Strength, Group Therapy, Gait, Safety, Therapeutic Exercise, Transfers Treatment Duration: Dec 07, 2022 Frequency: At least 5 of 7 days/Wk (IRF) Estimated Hrs Per Day: 1.5 hours per day Patient and/or Family Agrees t: Yes Safety Risks/Education Patient Education: Gait Training, Transfer Techniques, Correct Positioning Response to Teaching: Reinforcement Needed Time Time In: 1245 Time Out: 1300 DATE: Nov 07, 2022 Total Billed Treatment Time: 15 Total Billed Treatment 1,GT15m ARIANE MEYER CHAIR FINISHER Nov 07, 2022 13:22
[2022-11-07 17:43] VITALS: BP 131/68
[2022-11-07 19:29] VITALS: BP 129/69
[2022-11-07] MEDS: guaiFENesin/CODEINE (ROBITUSSIN AC) 10ML UDC PO PRN (20:41)
--- NOTE | 2022-11-08 05:26 | PM&R Progress Note ---
Subjective HPI/CC On Admission Date Seen by Provider: Nov 08, 2022 Time Seen by Provider: 12:00 Subjective/Events-last exam 11/08/2022: Patient doing pretty well Daughter at the bedside Participating pretty well Likely neoplasm will progress 11/07/2022: Patient doing really well Improved expressive aphasia Lungs are clear Eating and drinking pretty well No other concerns 11/06/2022: Patient doing well Participating in therapy Appears to be very weak Expressive aphasia a challenge for communication Reviewed labs Review of Systems General: Fatigue, Malaise Objective Exam Vital Signs Vital Signs Date Time Temp Pulse Resp B/P (MAP) Pulse Ox O2 Delivery O2 Flow Rate FiO2 11/08/22 17:15 58 124/72 (89) 11/08/22 09:31 Room Air 11/08/22 07:18 36.6 16 95 Capillary Refill : General Appearance: No Apparent Distress, WD/WN, Chronically ill HEENT: PERRL/EOMI, Normal ENT Inspection, Pharynx Normal Neck: Full Range of Motion, Normal Inspection, Non Tender, Supple, Carotid Bruit Respiratory: Chest Non Tender, Lungs Clear, No Accessory Muscle Use, No Respiratory Distress, Decreased Breath Sounds Cardiovascular: Regular Rate, Rhythm, No Edema, No Gallop, No JVD, No Murmur, Normal Peripheral Pulses Gastrointestinal: Normal Bowel Sounds, No Organomegaly, No Pulsatile Mass, Non Tender, Soft Back: Normal Inspection, No CVA Tenderness, No Vertebral Tenderness Extremity: Normal Capillary Refill, Normal Inspection, Normal Range of Motion, Non Tender, No Calf Tenderness, No Pedal Edema Neurologic/Psychiatric: Alert, cash on delivery clerk II-XII Norm as Tested, Abnormal Gait, Depressed Affect, Disoriented, Motor Weakness, Sensory Deficit, Other (Tremor n oted upper extremities, generalized ataxia) Skin: Normal Color, Warm/Dry Lymphatic: No Adenopathy Results/Procedures Lab Patient resulted labs reviewed. FIM Transfers Therapy Code Descriptions/Definitions Functional [place] Measure: 0=Not Assessed/NA 4=Minimal Assistance 1=Total Assistance 5=Supervision or Setup 2=Maximal Assistance 6=Modified [place] 3=Moderate Assistance 7=Complete IndependenceSCALE: Activities may be completed with or without assistive devices. 1-Rycclpczyx-eqolfvc completes the activity by him/herself with no assistance from a helper. 5-Set-up or Clean-up Assistance-helper sets up or cleans up; patient completes activity. [place] assists only prior to or following the activity. 4-Supervision or Touching Assistance-helper provides verbal cues and/or touching/steadying and/or contact guard assistance as patient completes activity. Assistance may be provided throughout the activity or intermittently. 3-Partial/Moderate Assistance-helper does LESS THAN HALF the effort. [place]inosaur lifts, holds or supports trunk or limbs, but provides less than half the effort. 2-Substantial/Maximal Assistance-helper does MORE THAN HALF the effort. [place]inosaur lifts or holds trunk or limbs and provides more than half the effort. 6-Jrwxqkahl-bisxfl does ALL the effort. Patient does none of the effort to complete the activity. Or, the assistance of 2 or more helpers is required for the patient to complete the activity. If activity was not attempted, code reason: 7-Patient Refused. 9-Not Applicable-not attempted and the patient did not perform the activity before the current illness, exacerbation or injury. 10-Not Attempted due to Environmental Limitations-(lack of equipment, weather restraints, etc.). 88-Not Attempted due to Medical Conditions or Safety Concerns. Roll Left to Right (QC): 4 Sit to Lying (QC): 4 Sit to Stand (QC): 4 Chair/Pbs-qs-Lcmvz Xfer(QC): 4 Car Transfer (QC): 3 (mod assist) Gait Training Does the Patient Walk?: Yes Distance: 150' Walk 10 feet (QC): 4 Walk 50 ft with 2 Turns(QC): 4 Walk 150 ft (QC): 4 Walking 10ft/uneven surface-QC: 3 Gait Persons Needed: 1 Gait Assistive Device: FWW Wheelchair Training Does the Pt Use a Wheelchair?: Yes Wheel 50 ft with 2 turns (QC): 88 Wheel 150 ft (QC): 88 Type of Wheelchair: Manual Stair Training #of Steps: 4 1 Step (curb) (QC): 3 (mod assist) 4 Steps (QC): 3 (mod assist) 12 Steps (QC): 88 Balance Picking up an Object (QC): 88 ADL-Treatment Eating (QC): 2 Oral Hygiene (QC): 1 Shower/Bathe Self (QC): 3 Upper Body Dressing (QC): 2 Lower Body Dressing (QC): 4 On/Off Footwear (QC): 5 Toileting Hygiene (QC): 2 Toilet Transfer (QC): 4 Assessment/Plan Assessment and Plan Assess & Plan/Chief Complaint 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 intake 11/08/2022: Supportive care Monitor closely (1) Subdural hematoma VIVI WHALEY DO Nov 08, 2022 05:26
[2022-11-08] MEDS: KCL 10 MEQ TAB (MICRO K) PO SCH (06:32)
[2022-11-08] MEDS: FERROUS SULF 325 MG (IRON) TAB PO SCH (06:32)
[2022-11-08] MEDS: MULTIVIT W/MINERALS TAB (THERAGRAN M) PO SCH (06:32)
[2022-11-08 07:18] VITALS: BP 137/77
[2022-11-08] MEDS: METHOCARBAMOL 500 MG (ROBAXIN) TABLET PO SCH ×2 (07:44→20:34)
[2022-11-08] MEDS: IBUPROFEN TABLET 200 MG TAB PO PRN ×2 (07:45→20:34)
--- NOTE | 2022-11-08 07:58 | Occupational Ther Daily Note ---
OT Current Status-Daily Note Subjective Pt has difficulty expressing self however was able to state that he is in a lot of pain, located in his back. He is unable to give a numerical value or verbalize what happened to cause the pain. He does grimace with small movements. RN notified and pain meds were given. Appearance Pt returned to sitting in recliner, daughter in room at end of 2nd treatment. Mental Status/Objective Patient Orientation: Person ADL-Treatment Therapy Code Descriptions/Definitions Functional [place] Measure: 0=Not Assessed/NA 4=Minimal Assistance 1=Total Assistance 5=Supervision or Setup 2=Maximal Assistance 6=Modified [place] 3=Moderate Assistance 7=Complete IndependenceSCALE: Activities may be completed with or without assistive devices. 0-Zrbgfrohbe-nubwblt completes the activity by him/herself with no assistance from a helper. 5-Set-up or Clean-up Assistance-helper sets up or cleans up; patient completes a ctivity. [place] assists only prior to or following the activity. 4-Supervision or Touching Assistance-helper provides verbal cues and/or touching/steadying and/or contact guard assistance as patient completes activity. Assistance may be provided throughout the activity or intermittently. 3-Partial/Moderate Assistance-helper does LESS THAN HALF the effort. [place] lifts, holds or supports trunk or limbs, but provides less than half the effort. 2-Substantial/Maximal Assistance-helper does MORE THAN HALF the effort. [place] lifts or holds trunk or limbs and provides more than half the effort. 2-Lscbbgdco-fxvbln does ALL the effort. Patient does none of the effort to complete the activity. Or, the assistance of 2 or more helpers is required for the patient to complete the activity. If activity was not attempted, code reason: 7-Patient Refused. 9-Not Applicable-not attempted and the patient did not perform the activity before the current illness, exacerbation or injury. 10-Not Attempted due to Environmental Limitations-(lack of equipment, weather restraints, etc.). 88-Not Attempted due to Medical Conditions or Safety Concerns. Oral Hygiene (QC): 2 Shower/Bathe Self (QC): 2 Upper Body Dressing (QC): 1 Lower Body Dressing (QC): 4 On/Off Footwear: 4 Toileting Hygiene (QC): 3 Toilet Transfer (QC): 4 (1st session): pt sitting in chair at OT arrival. He had just finished eating breakfast with assist provided for feeding from nursing aid. Pt was able to verbalize that he is having significant pain in his back and grimaces with small movements. RN notified. Pt sat to shave with electric razor. Assist/cues for positioning to aid in reducing intensity of tremors. Pt held arms close to body with elbows flexed. Bilateral hands holding electric razor. Similar to eating, pt's head shakes along with tremors in UE's. OT stabilized wrists and provided deep pressure to hand/forearm to reduce tremors. Mod a still needed for thoroughness. Pt able to wash face with extra time. Max a to brush dentures due to severity of tremors. (2nd session): Pt still complaining of back pain. His daughter is present and reports that this is normal. Shower performed; 90% completed in sitting. Pt is able to reach all body parts but needs cues to initiate washing each body part. At times, pt requires physical assist to direct hand towards correct body part. Steadying assist and assist needed to wash buttocks required. Pt has poor motor planning when donning shirt, thus needing step by step cues/assist. Per daughter , pt only wears button up shirts and that is why donning a shirt over his head seems "awkward." Education on modifying buttons with velcro. Pt able to don pants over feet with extra time. Verbal and tactile cues needed to initiate pulling pants over his hips. Pt appears to have some R sided neglect throughout mobility and adls. Needs cues/assist to scan and initiate use of Right side of body. Education OT Patient Education: Correct positioning, Modified ADL techniques, Purpose of tx/functional activities, Safety issues Teaching Recipient: Patient Teaching Methods: Demonstration, Discussion Response to Teaching: Reinforcement Needed OT Short Term Goals Short Term Goals Time Frame: Nov 13, 2022 Eatin Oral hygiene: 2 Toileting hygiene: 3 Shower/bathe self: 3 Upper body dressin Lower body dressin Putting on/taking off footwear: 5 OT Corn Crop Supervisor Goals Snf Goals Time Frame: Nov 22, 2022 Acute change in mental status: 1 Inattention: 2 Disorganized thinkin Altered level of consciousness: 0 Eating (QC): 3 Oral Hygiene (QC): 3 Toileting Hygiene (QC): 5 Shower/Bathe Self (QC): 5 Upper Body Dressing (QC): 5 Lower Body Dressing (QC): 5 On/Off Footwear (QC): 5 Additional Goals: 1-Demonstrate ADL Tasks, 2-Verbalize Understanding, 3- ImproveStrength/Michael 1=Demonstrate adherence to instructed precautions during ADL tasks. 2=Patient will verbalize/demonstrate understanding of assistive devices/modifications for ADL. 3=Patient will improve strength/tolerance for activity to enable patient to perform ADL's. OT Education/Plan Problem List/Assessment Assessment: Decreased Activ Tolerance, Decreased Safety Aware, Decreased UE Strength, Impaired Cognition, Impaired Coordination, Impaired Funct Balance, Impaired Self-Care Skills, Restricted Funct UE ROM, Visual-Perceptual Deficit Discharge Recommendations Plan/Recommendations: Continue POC Therapy Discharge Recommendati: Other, See Comments (LTC vs home with daughter as daughter reports she is able to provide necessary assist ) Treatment Plan/Plan of Care Treatment,Training & Education: Yes Patient would benefit from OT for education, treatment and training to promote independence in ADL's, mobility, safety and/or upper extremity function for ADL's. Plan of Care: ADL Retraining, Caregiver Training, Cognitive Retraining, Functional Mobility, Group Exercise/Act as Ind, UE Funct Exercise/Act, UE Neuromus Re-Ed/Coord, Visual/Perceptual Retrain Treatment Duration: Nov 22, 2022 Frequency: At least 5 of 7 days/Wk (IRF) Estimated Hrs Per Day: 1.5 hours per day Rehab Potential: Guarded Time Start Time: 07:30 (0930) Stop Time: 08:00 (1030) DATE: Nov 08, 2022 Total Time Billed (hr/min): 90 Billed Treatment Time 1st visit ADL x2 (30 min) 2nd visit ADL x4 (60 min) Estelle Morales OT Nov 08, 2022 07:57
[2022-11-08] MEDS: ASPIRIN E.C. 81 MG (ECOTRIN) TAB PO SCH (08:14)
[2022-11-08] MEDS: DOCUSATE SODIUM 100 MG (COLACE) CAP PO SCH ×2 (08:15→20:34)
[2022-11-08] MEDS: SENNA W/DOCUSATE (SENOKOT S) TABLET PO SCH ×4 (08:15→20:35)
[2022-11-08] MEDS: polyethylene glycoL POWDER 17 GM (MIRALAX) PACK PO SCH ×2 (08:18→20:35)
[2022-11-08] MEDS: DICLOFENAC 1% GEL 100 GM (VOLTAREN) TUBE TOP SCH ×4 (08:19→20:35)
--- NOTE | 2022-11-08 08:41 | Physical Therapy Daily Note ---
PT Daily Note-Current Subjective Pt. up in recliner, nursing present. Pt. c/o pain "20/10" in low back. Pt. agrees to try gait but wants to get in bed or some position that might help address pain. Nursing gave appropriate meds to address pain Pain Numeric Pain Scale: 10-Worst Possible Pain Location: Medial Location Body Site: Back (low) Pain Description: Ache Section J - Health Conditions 1. Rarely or not at all 2. Occasionally 3. Frequently 4. Almost constantly 8. Unable to answer Pain Effect on Sleep: 8 Pain Interference with Therapy: 4 Pain Interference w/Day-to-Day: 4 Appearance pt. with flat affect and grimace Transfers SCALE: Activities may be completed with or without assistive devices. 0-Zqixlmjocm-cepnzpx completes the activity by him/herself with no assistance from a helper. 5-Set-up or Clean-up Assistance-helper sets up or cleans up; patient completes activity. [place] assists only prior to or following the activity. 4-Supervision or Touching Assistance-helper provides verbal cues and/or touching/steadying and/or contact guard assistance as patient completes activity. Assistance may be provided throughout the activity or intermittently. 3-Partial/Moderate Assistance-helper does LESS THAN HALF the effort. [place] lif ts, holds or supports trunk or limbs, but provides less than half the effort. 2-Substantial/Maximal Assistance-helper does MORE THAN HALF the effort. [place] lifts or holds trunk or limbs and provides more than half the effort. 1-Brucoscju-lvzzdo does ALL the effort. Patient does none of the effort to complete the activity. Or, the assistance of 2 or more helpers is required for the patient to complete the activity. If activity was not attempted, code reason: 7-Patient Refused. 9-Not Applicable-not attempted and the patient did not perform the activity before the current illness, exacerbation or injury. 10-Not Attempted due to Environmental Limitations-(lack of equipment, weather restraints, etc.). 88-Not Attempted due to Medical Conditions or Safety Concerns. Roll Left & Right (QC): 4 Sit to Lying (QC): 4 Sit to Stand (QC): 4 Chair/Lfp-cf-Rmiof Xfer(QC): 4 pt. needs CGA and guidance for all , steering and turning etc, uses FWW Weight Bearing Full Weight Bearing Full Weight Bearing Gait Training Does the Patient Walk?: Yes Walk 10 feet (QC): 4 Walk 50 ft with 2 Turns(QC): 4 Walk 150 ft (QC): 4 Gait Persons Needed: 1 Gait Assistive Device: FWW gait 150ft x 2, pt agrees to try gait to see if it will help with pain but it did not. pt. needs full assist to guide and turn device , has firm customer service sales associate on FWW , small step length and flexed posture over FWW, guarded movements Exercises Supine Ex: Bridging, Ankle pumps, Quad Set, Rolling, Scooting, Hip abd/add Supine Reps: 10 Treatments LE ex, TRFs, gait, positioning for comfort to address pain, warm pack to low back, in bed after Rx, rails up, alarm insitu, vergara at hand Assessment Current Status: Poor Progress pain in low back limits participation today PT Fpc Goals Fpc Goals PT Fpc Goals Time Frame: Dec 07, 2022 Roll Left & Right (QC): 6 Sit to Lying (QC): 6 Lying-Sitting on Side/Bed(QC): 6 Sit to Stand (QC): 4 (SBA for safety) Chair/Uyp-ov-Lxade Xfer(QC): 4 (SBA) Toilet Transfer (QC): 4 (SBA for safety) Car Transfer (QC): 4 (SBA for safety) Does the Patient Walk: Yes Walk 10 feet (QC): 4 (SBA for safety due to ataxia) Walk 50ft with 2 Turns (QC): 4 (SBA due to ataxia) Walk 150 ft (QC): 4 (SBA for safety due to ataxia) Walking 10ft on Uneven Surface: 4 (SBA for safety due to ataxia) 1 Step (curb) (QC): 4 (CGA for safety) 4 Steps (QC): 4 (CGA for safety) 12 Steps (QC): 4 (CGA for safety) Picking up an Object (QC): 1 (due to balance deficits) Does the Pt use WC or Scooter?: No Wheel 50 feet with 2 turns (QC: 3 Type: Manual Wheel 150 feet: 3 Type: Manual PT Plan Treatment/Plan Treatment Plan: Continue Plan of Care Treatment Plan: Bed Mobility, Concurrent Therapy, Education, Functional Activity Michael, Functional Strength, Group Therapy, Gait, Safety, Therapeutic Ex ercise, Transfers Treatment Duration: Dec 07, 2022 Frequency: At least 5 of 7 days/Wk (IRF) Estimated Hrs Per Day: 1.5 hours per day Patient and/or Family Agrees t: Yes Safety Risks/Education Patient Education: Gait Training, Transfer Techniques, Correct Positioning, Disease Process, Safety Issues Teaching Recipient: Patient Response to Teaching: Reinforcement Needed Time Time In: 800 Time Out: 845 DATE: Nov 08, 2022 Total Billed Treatment Time: 45 Total Billed Treatment 1,GT,20m,FA15m,EX10m ARIANE MEYER PTA Nov 08, 2022 08:41
[2022-11-08] MEDS: ACETAMINOPHEN ER 650 MG (TYLENOL ARTHRITIS) PO PRN (11:36)
--- NOTE | 2022-11-08 11:49 | Physical Therapy Daily Note ---
PT Daily Note-Current Subjective Pt. found sitting up in recliner, curled up with feet on floor, head near his knees and hands on his head. Pt. c/o pain continues in low back at "20/10" Pt states he has not found a position to help ease his pain. Pt. states the activity he participated in during PT this morning did not help ease pain. Nurse was contacted and she states pt has been medicated orally several times this morning since 730 am and has had no relief. Nurse also states pts family does not want him to have stronger meds as he becomes confused. Pain Section J - Health Conditions 1. Rarely or not at all 2. Occasionally 3. Frequently 4. Almost constantly 8. Unable to answer Pain Effect on Sleep: 8 Pain Interference with Therapy: 4 Pain Interference w/Day-to-Day: 4 Mental Status Patient Orientation: Listless Transfers SCALE: Activities may be completed with or without assistive devices. 6-Qvkoxaovhh-tpywmtl completes the activity by him/herself with no assistance from a helper. 5-Set-up or Clean-up Assistance-helper sets up or cleans up; patient completes activity. [place] assists only prior to or following the activity. 4-Supervision or Touching Assistance-helper provides verbal cues and/or touching/steadying and/or contact guard assistance as patient completes activity. Assistance may be provided throughout the activity or intermittently. 3-Partial/Moderate Assistance-helper does LESS THAN HALF the effort. [place] lifts, holds or supports trunk or limbs, but provides less than half the effort. 2-Substantial/Maximal Assistance-helper does MORE THAN HALF the effort. [place] lifts or holds trunk or limbs and provides more than half the effort. 2-Vlkqitinp-fihrui does ALL the effort. Patient does none of the effort to complete the activity. Or, the assistance of 2 or more helpers is required for the patient to complete the activity. If activity was not attempted, code reason: 7-Patient Refused. 9-Not Applicable-not attempted and the patient did not perform the activity before the current illness, exacerbation or injury. 10-Not Attempted due to Environmental Limitations-(lack of equipment, weather restraints, etc.). 88-Not Attempted due to Medical Conditions or Safety Concerns. sit to stand and repositioned in chair. all CGA Weight Bearing Full Weight Bearing Full Weight Bearing Exercises Seated Therapy Exercises: Ankle pumps, Sit to stand, Long arc quads Seated Reps: 8 Treatments repositioning for attempts at alleviating pain Assessment Current Status: Poor Progress pain greatly limits pts ability to participate in Rx PT Skilled Nursing Goals Skilled Nursing Goals PT Occupational Medicine Officer Goals Time Frame: Dec 07, 2022 Roll Left & Right (QC): 6 Sit to Lying (QC): 6 Lying-Sitting on Side/Bed(QC): 6 Sit to Stand (QC): 4 (SBA for safety) Chair/Vuh-jt-Ziash Xfer(QC): 4 (SBA) Toilet Transfer (QC): 4 (SBA for safety) Car Transfer (QC): 4 (SBA for safety) Does the Patient Walk: Yes Walk 10 feet (QC): 4 (SBA for safety due to ataxia) Walk 50ft with 2 Turns (QC): 4 (SBA due to ataxia) Walk 150 ft (QC): 4 (SBA for safety due to ataxia) Walking 10ft on Uneven Surface: 4 (SBA for safety due to ataxia) 1 Step (curb) (QC): 4 (CGA for safety) 4 Steps (QC): 4 (CGA for safety) 12 Steps (QC): 4 (CGA for safety) Picking up an Object (QC): 1 (due to balance deficits) Does the Pt use WC or Scooter?: No Wheel 50 feet with 2 turns (QC: 3 Type: Manual Wheel 150 feet: 3 Type: Manual PT Plan Treatment/Plan Treatment Plan: Continue Plan of Care Treatment Plan: Bed Mobility, Concurrent Therapy, Education, Functional Activity Michael, Functional Strength, Group Therapy, Gait, Safety, Therapeutic Exercise, Transfers Treatment Duration: Dec 07, 2022 Frequency: At least 5 of 7 days/Wk (IRF) Estimated Hrs Per Day: 1.5 hours per day Patient and/or Family Agrees t: Yes Safety Risks/Education Patient Education: Correct Positioning Time Time In: 1115 Time Out: 1130 DATE: Nov 08, 2022 Total Billed Treatment Time: 15 Total Billed Treatment 1,FARichm ARIANE MEYER ENERGY SALES BROKER Nov 08, 2022 11:49
--- NOTE | 2022-11-08 13:53 | Physical Therapy Daily Note ---
PT Daily Note-Current Subjective Pt. seated in recliner upon entering room and states he is feeling much better and has no pain in his back right now. Pt. at first declines PT Rx and activity but with encouragement pt. is agreeable to short walking and seated ex. Pain Location: No Pain Reported Section J - Health Conditions 1. Rarely or not at all 2. Occasionally 3. Frequently 4. Almost constantly 8. Unable to answer Pain Effect on Sleep: 8 Pain Interference with Therapy: 1 Pain Interference w/Day-to-Day: 3 Appearance head and UE tremors Transfers SCALE: Activities may be completed with or without assistive devices. 9-Fgwpshzjpt-izrbfcs completes the activity by him/herself with no assistance from a helper. 5-Set-up or Clean-up Assistance-helper sets up or cleans up; patient completes activity. [place] assists only prior to or following the activity. 4-Supervision or Touching Assistance-helper provides verbal cues and/or touching/steadying and/or contact guard assistance as patient completes activity. Assistance may be provided throughout the activity or intermittently. 3-Partial/Moderate Assistance-helper does LESS THAN HALF the effort. [place] lifts, holds or supports trunk or limbs, but provides less than half the effort. 2-Substantial/Maximal Assistance-helper does MORE THAN HALF the effort. [place] lifts or holds trunk or limbs and provides more than half the effort. 8-Zeltwsbzj-lphifb does ALL the effort. Patient does none of the effort to complete the activity. Or, the assistance of 2 or more helpers is required for the patient to complete the activity. If activity was not attempted, code reason: 7-Patient Refused. 9-Not Applicable-not attempted and the patient did not perform the activity before the current illness, exacerbation or injury. 10-Not Attempted due to Environmental Limitations-(lack of equipment, weather restraints, etc.). 88-Not Attempted due to Medical Conditions or Safety Concerns. sit to stand min to CGA Weight Bearing Full Weight Bearing Full Weight Bearing Gait Training Does the Patient Walk?: Yes Gait Assistive Device: FWW 30ft x 5 FWW, pt. with some noted LLE weakness and L knee melting at first. this improved and LLE seemed much more stable after walking a bit. pt. needs full assist to steer FWW and turn when needed, vision deficit Exercises Seated Therapy Exercises: Ankle pumps, Sit to stand, Long arc quads, Hip flexion, Hip abd/add Seated Reps: 8 Treatments gait, TRFs Assessment Current Status: Good Progress pain improved, tolerated PT RX PT Secondary Set Up Man Goals Custodial Goals PT Secondary Set Up Man Goals Time Frame: Dec 07, 2022 Roll Left & Right (QC): 6 Sit to Lying (QC): 6 Lying-Sitting on Side/Bed(QC): 6 Sit to Stand (QC): 4 (SBA for safety) Chair/Ose-hc-Kfgtj Xfer(QC): 4 (SBA) Toilet Transfer (QC): 4 (SBA for safety) Car Transfer (QC): 4 (SBA for safety) Does the Patient Walk: Yes Walk 10 feet (QC): 4 (SBA for safety due to ataxia) Walk 50ft with 2 Turns (QC): 4 (SBA due to ataxia) Walk 150 ft (QC): 4 (SBA for safety due to ataxia) Walking 10ft on Uneven Surface: 4 (SBA for safety due to ataxia) 1 Step (curb) (QC): 4 (CGA for safety) 4 Steps (QC): 4 (CGA for safety) 12 Steps (QC): 4 (CGA for safety) Picking up an Object (QC): 1 (due to balance deficits) Does the Pt use WC or Scooter?: No Wheel 50 feet with 2 turns (QC: 3 Type: Manual Wheel 150 feet: 3 Type: Manual PT Plan Treatment/Plan Treatment Plan: Continue Plan of Care Treatment Plan: Bed Mobility, Concurrent Therapy, Education, Functional Activ ity Michael, Functional Strength, Group Therapy, Gait, Safety, Therapeutic Exercise, Transfers Treatment Duration: Dec 07, 2022 Frequency: At least 5 of 7 days/Wk (IRF) Estimated Hrs Per Day: 1.5 hours per day Patient and/or Family Agrees t: Yes Safety Risks/Education Patient Education: Gait Training, Transfer Techniques, Correct Positioning, Safety Issues Time Time In: 1330 Time Out: 1400 DATE: Nov 08, 2022 Total Billed Treatment Time: 30 Total Billed Treatment 1,GT30m ARIANE MEYER TAX APPRAISER Nov 08, 2022 13:53
[2022-11-08 17:15] VITALS: BP 124/72
[2022-11-08 20:05] VITALS: BP 144/75
[2022-11-08] MEDS: guaiFENesin/CODEINE (ROBITUSSIN AC) 10ML UDC PO PRN (20:34)
--- NOTE | 2022-11-09 05:54 | PM&R Progress Note ---
Subjective HPI/CC On Admission Date Seen by Provider: Nov 09, 2022 Time Seen by Provider: 06:00 Subjective/Events-last exam 11/09/2022: Patient doing well More communication ability No other concerns Back pain is improved with heating pad 11/08/2022: Patient doing pretty well Daughter at the bedside Participating pretty well Likely neoplasm will progress 11/07/2022: Patient doing really well Improved expressive aphasia Lungs are clear Eating and drinking pretty well No other concerns 11/06/2022: Patient doing well Participating in therapy Appears to be very weak Expressive aphasia a challenge for communication Reviewed labs Review of Systems General: Fatigue, Malaise Objective Exam Vital Signs Vital Signs Date Time Temp Pulse Resp B/P (MAP) Pulse Ox O2 Delivery O2 Flow Rate FiO2 11/09/22 09:11 Room Air 11/09/22 08:00 36.5 55 20 122/67 (85) 95 Capillary Refill : General Appearance: No Apparent Distress, WD/WN, Chronically ill HEENT: PERRL/EOMI, Normal ENT Inspection, Pharynx Normal Neck: Full Range of Motion, Normal Inspection, Non Tender, Supple, Carotid Bruit Respiratory: Chest Non Tender, Lungs Clear, No Accessory Muscle Use, No Respiratory Distress, Decreased Breath Sounds Cardiovascular: Regular Rate, Rhythm, No Edema, No Gallop, No JVD, No Murmur, Normal Peripheral Pulses Gastrointestinal: Normal Bowel Sounds, No Organomegaly, No Pulsatile Mass, Non Tender, Soft Back: Normal Inspection, No CVA Tenderness, No Vertebral Tenderness Extremity: Normal Capillary Refill, Normal Inspection, Normal Range of Motion, Non Tender, No Calf Tenderness, No Pedal Edema Neurologic/Psychiatric: Alert, operations supervisor 2nd shift II-XII Norm as Tested, Abnormal Gait, Depressed Affect, Disoriented, Motor Weakness, Sensory Deficit, Other (Tremor noted upper extremities, generalized ataxia) Skin: Normal Color, Warm/Dry Lymphatic: No Adenopathy Results/Procedures Lab Patient resulted labs reviewed. FIM Transfers Therapy Code Descriptions/Definitions Functional [place] Measure: 0=Not Assessed/NA 4=Minimal Assistance 1=Total Assistance 5=Supervision or Setup 2=Maximal Assistance 6=Modified [place] 3=Moderate Assistance 7=Complete IndependenceSCALE: Activities may be completed with or without assistive devices. 8-Uorsrnrurz-iomyvur completes the activity by him/herself with no assistance from a helper. 5-Set-up or Clean-up Assistance-helper sets up or cleans up; patient completes activity. [place] assists only prior to or following the activity. 4-Supervision or Touching Assistance-helper provides verbal cues and/or touching/steadying and/or contact guard assistance as patient completes activity. Assistance may be provided throughout the activity or intermittently. 3-Partial/Moderate Assistance-helper does LESS THAN HALF the effort. [place] lifts, holds or supports trunk or limbs, but provides less than half the effort. 2-Substantial/Maximal Assistance-helper does MORE THAN HALF the effort. [place] lifts or holds trunk or limbs and provides more than half the effort. 2-Yzuqpibfe-dmivbj does ALL the effort. Patient does none of the effort to complete the activity. Or, the assistance of 2 or more helpers is required for the patient to complete the activity. If activity was not attempted, code reason: 7-Patient Refused. 9-Not Applicable-not attempted and the patient did not perform the activity before the current illness, exacerbation or injury. 10-Not Attempted due to Environmental Limitations-(lack of equipment, weather restraints, etc.). 88-Not Attempted due to Medical Conditions or Safety Concerns. Roll Left to Right (QC): 4 Sit to Lying (QC): 4 Sit to Stand (QC): 4 Chair/Slf-zi-Qqdjc Xfer(QC): 4 Car Transfer (QC): 3 (mod assist) Gait Training Does the Patient Walk?: Yes Distance: 150' Walk 10 feet (QC): 4 Walk 50 ft with 2 Turns(QC): 4 Walk 150 ft (QC): 4 Walking 10ft/uneven surface-QC: 3 Gait Persons Needed: 1 Gait Assistive Device: FWW Wheelchair Training Does the Pt Use a Wheelchair?: Yes Wheel 50 ft with 2 turns (QC): 88 Wheel 150 ft (QC): 88 Type of Wheelchair: Manual Stair Training #of Steps: 4 1 Step (curb) (QC): 3 (mod assist) 4 Steps (QC): 3 (mod assist) 12 Steps (QC): 88 Balance Picking up an Object (QC): 88 ADL-Treatment Eating (QC): 2 Oral Hygiene (QC): 2 Shower/Bathe Self (QC): 2 Upper Body Dressing (QC): 1 Lower Body Dressing (QC): 4 On/Off Footwear (QC): 4 Toileting Hygiene (QC): 3 Toilet Transfer (QC): 4 Assessment/Plan Assessment and Plan Assess & Plan/Chief Complaint 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 intake 11/08/2022: Supportive care Monitor closely 11/09/2022: Doing well Heating pad for back pain rather than pain medication that could confuse him (1) Subdural hematoma VIVI WHALEY DO Nov 09, 2022 05:54
[2022-11-09] MEDS: KCL 10 MEQ TAB (MICRO K) PO SCH (05:59)
[2022-11-09] MEDS: MULTIVIT W/MINERALS TAB (THERAGRAN M) PO SCH (05:59)
[2022-11-09] MEDS: IBUPROFEN TABLET 200 MG TAB PO PRN (06:29)
[2022-11-09] MEDS: DOCUSATE SODIUM 100 MG (COLACE) CAP PO SCH ×2 (07:57→21:35)
[2022-11-09] MEDS: ASPIRIN E.C. 81 MG (ECOTRIN) TAB PO SCH (07:57)
[2022-11-09] MEDS: METHOCARBAMOL 500 MG (ROBAXIN) TABLET PO SCH ×2 (07:58→21:28)
[2022-11-09] MEDS: SENNA W/DOCUSATE (SENOKOT S) TABLET PO SCH ×4 (07:59→21:35)
[2022-11-09 08:00] VITALS: BP 122/67
[2022-11-09] MEDS: DICLOFENAC 1% GEL 100 GM (VOLTAREN) TUBE TOP SCH ×4 (08:02→21:31)
[2022-11-09] MEDS: polyethylene glycoL POWDER 17 GM (MIRALAX) PACK PO SCH ×2 (08:02→21:35)
--- NOTE | 2022-11-09 12:06 | Physical Therapy Daily Note ---
PT Daily Note-Current Subjective Pt reports he is doing today. Reports back pain but does not rate. Pain Section J - Health Conditions 1. Rarely or not at all 2. Occasionally 3. Frequently 4. Almost constantly 8. Unable to answer Pain Effect on Sleep: 8 Pain Interference with Therapy: 1 Pain Interference w/Day-to-Day: 3 Mental Status Patient Orientation: Person, Confused, Place Transfers SCALE: Activities may be completed with or without assistive devices. 1-Zrwxmmzadl-gntksux completes the activity by him/herself with no assistance from a helper. 5-Set-up or Clean-up Assistance-helper sets up or cleans up; patient completes activity. [place] assists only prior to or following the activity. 4-Supervision or Touching Assistance-helper provides verbal cues and/or touching/steadying and/or contact guard assistance as patient completes activity. Assistance may be provided throughout the activity or intermittently. 3-Partial/Moderate Assistance-helper does LESS THAN HALF the effort. [place] lifts, holds or supports trunk or limbs, but provides less than half the effort. 2-Substantial/Maximal Assistance-helper does MORE THAN HALF the effort. [place] lifts or holds trunk or limbs and provides more than half the effort. 4-Rqdzlprvg-anstta does ALL the effort. Patient does none of the effort to complete the activity. Or, the assistance of 2 or more helpers is required for the patient to complete the activity. If activity was not attempted, code reason: 7-Patient Refused. 9-Not Applicable-not attempted and the patient did not perform the activity before the current illness, exacerbation or injury. 10-Not Attempted due to Environmental Limitations-(lack of equipment, weather restraints, etc.). 88-Not Attempted due to Medical Conditions or Safety Concerns. Sit to Stand (QC): 4 Toilet Transfer (QC): 3 Weight Bearing Full Weight Bearing Full Weight Bearing Gait Training Does the Patient Walk?: Yes Distance: 150' x 2 Walk 10 feet (QC): 3 Walk 50 ft with 2 Turns(QC): 3 Walk 150 ft (QC): 3 Gait Persons Needed: 1 Gait Assistive Device: FWW guide/advance FWW Exercises Seated Therapy Exercises: Long arc quads Seated Reps: 15 Treatments Pt TFs from recliner and amb to BR. TFs to toilet w/ Varun and verbal cue. No BM . Pt able to clean self and then amb to therapy gym w/ Varun/CGA. Performs seated exs in therapy gym then amb back to room. Pt TFs to recliner. All needs met and call light in hand as PT departs. Assessment Current Status: Fair Progress Pt requires recurrent cues to be reminded what he's doing and where he is going. Still requires Varun to advance and guide FWW. Requires verbal and tactile cues in order to perform all TFs. PT Prison Goals Pre Parole Counseling Aide Goals PT Pre Parole Counseling Aide Goals Time Frame: Dec 07, 2022 Roll Left & Right (QC): 6 Sit to Lying (QC): 6 Lying-Sitting on Side/Bed(QC): 6 Sit to Stand (QC): 4 (SBA for safety) Chair/Puy-uj-Idnpu Xfer(QC): 4 (SBA) Toilet Transfer (QC): 4 (SBA for safety) Car Transfer (QC): 4 (SBA for safety) Does the Patient Walk: Yes Walk 10 feet (QC): 4 (SBA for safety due to ataxia) Walk 50ft with 2 Turns (QC): 4 (SBA due to ataxia) Walk 150 ft (QC): 4 (SBA for safety due to ataxia) Walking 10ft on Uneven Surface: 4 (SBA for safety due to ataxia) 1 Step (curb) (QC): 4 (CGA for safety) 4 Steps (QC): 4 (CGA for safety) 12 Steps (QC): 4 (CGA for safety) Picking up an Object (QC): 1 (due to balance deficits) Does the Pt use WC or Scooter?: No Wheel 50 feet with 2 turns (QC: 3 Type: Manual Wheel 150 feet: 3 Type: Manual PT Plan Problem List Problem List: Safety, Balance, Gait, Transfer Treatment/Plan Treatment Plan: Continue Plan of Care Treatment Plan: Bed Mobility, Concurrent Therapy, Education, Functional Activity Michael, Functional Strength, Group Therapy, Gait, Safety, Therapeutic Exercise, Transfers Treatment Duration: Dec 07, 2022 Frequency: At least 5 of 7 days/Wk (IRF) Estimated Hrs Per Day: 1.5 hours per day Patient and/or Family Agrees t: Yes Safety Risks/Education Patient Education: Gait Training, Transfer Techniques, Correct Positioning Teaching Recipient: Patient Teaching Methods: Demonstration, Discussion Response to Teaching: Return Demonstration Time Time In: 829 Time Out: 854 DATE: Nov 09, 2022 Total Billed Treatment Time: 25 Total Billed Treatment 1, Gt x2 25min LATONYA GO STAFFING COORDINATOR Nov 09, 2022 12:06
[2022-11-09 19:54] VITALS: BP 136/63
[2022-11-09] MEDS: guaiFENesin/CODEINE (ROBITUSSIN AC) 10ML UDC PO PRN (21:28)
--- NOTE | 2022-11-10 04:50 | PM&R Progress Note ---
Subjective HPI/CC On Admission Date Seen by Provider: Nov 10, 2022 Time Seen by Provider: 06:00 Subjective/Events-last exam 11/10/2021: Patient doing well No other concerns Back pain continues to be an issue Family does not want strong pain medication because it can cause some confusion 11/09/2022: Patient doing well More communication ability No other concerns Back pain is improved with heating pad 11/08/2022: Patient doing pretty well Daughter at the bedside Participating pretty well Likely neoplasm will progress 11/07/2022: Patient doing really well Improved expressive aphasia Lungs are clear Eating and drinking pretty well No other concerns 11/06/2022: Patient doing well Participating in therapy Appears to be very weak Expressive aphasia a challenge for communication Reviewed labs Review of Systems General: Fatigue, Malaise Musculoskeletal: back pain Neurological: Confusion Objective Exam Vital Signs Vital Signs Date Time Temp Pulse Resp B/P (MAP) Pulse Ox O2 Delivery O2 Flow Rate FiO2 11/10/22 08:00 36.7 62 16 132/76 (94) 97 Room Air Capillary Refill : General Appearance: No Apparent Distress, WD/WN, Chronically ill HEENT: PERRL/EOMI, Normal ENT Inspection, Pharynx Normal Neck: Full Range of Motion, Normal Inspection, Non Tender, Supple, Carotid Bruit Respiratory: Chest Non Tender, Lungs Clear, No Accessory Muscle Use, No Respiratory Distress, Decreased Breath Sounds Cardiovascular: Regular Rate, Rhythm, No Edema, No Gallop, No JVD, No Murmur, Normal Peripheral Pulses Gastrointestinal: Normal Bowel Sounds, No Organomegaly, No Pulsatile Mass, Non Tender, Soft Back: Normal Inspection, No CVA Tenderness, No Vertebral Tenderness Extremity: Normal Capillary Refill, Normal Inspection, Normal Range of Motion, Non Tender, No Calf Tenderness, No Pedal Edema Neurologic/Psychiatric: Alert, bar assistant II-XII Norm as Tested, Abnormal Gait, Depressed Affect, Disoriented, Motor Weakness, Sensory Deficit, Other (Tremor noted upper extremities, generalized ataxia) Skin: Normal Color, Warm/Dry Lymphatic: No Adenopathy Results/Procedures Lab Patient resulted labs reviewed. FIM Transfers Therapy Code Descriptions/Definitions Functional [place] Measure: 0=Not Assessed/NA 4=Minimal Assistance 1=Total Assistance 5=Supervision or Setup 2=Maximal Assistance 6=Modified [place] 3=Moderate Assistance 7=Complete IndependenceSCALE: Activities may be completed with or without assistive devices. 4-Tskmfqbzgt-qdnlzkh completes the activity by him/herself with no assistance from a helper. 5-Set-up or Clean-up Assistance-helper sets up or cleans up; patient completes activity. [place] assists only prior to or following the activity. 4-Supervision or Touching Assistance-helper provides verbal cues and/or touching/steadying and/or contact guard assistance as patient completes activity. Assistance may be provided throughout the activity or intermittently. 3-Partial/Moderate Assistance-helper does LESS THAN HALF the effort. [place] lifts, holds or supports trunk or limbs, but provides less than half the effort. 2-Substantial/Maximal Assistance-helper does MORE THAN HALF the effort. [place] lifts or holds trunk or limbs and provides more than half the effort. 3-Uudvvtgbd-etaxpq does ALL the effort. Patient does none of the effort to complete the activity. Or, the assistance of 2 or more helpers is required for the patient to complete the activity. If activity was not attempted, code reason: 7-Patient Refused. 9-Not Applicable-not attempted and the patient did not perform the activity before the current illness, exacerbation or injury. 10-Not Attempted due to Environmental Limitations-(lack of equipment, weather restraints, etc.). 88-Not Attempted due to Medical Conditions or Safety Concerns. Roll Left to Right (QC): 4 Sit to Lying (QC): 4 Sit to Stand (QC): 4 Chair/Wpc-dc-Vlvvy Xfer(QC): 4 Car Transfer (QC): 3 (mod assist) Gait Training Does the Patient Walk?: Yes Distance: 150' x 2 Walk 10 feet (QC): 3 Walk 50 ft with 2 Turns(QC): 3 Walk 150 ft (QC): 3 Walking 10ft/uneven surface-QC: 3 Gait Persons Needed: 1 Gait Assistive Device: FWW Wheelchair Training Does the Pt Use a Wheelchair?: Yes Wheel 50 ft with 2 turns (QC): 88 Wheel 150 ft (QC): 88 Type of Wheelchair: Manual Stair Training #of Steps: 4 1 Step (curb) (QC): 3 (mod assist) 4 Steps (QC): 3 (mod assist) 12 Steps (QC): 88 Balance Picking up an Object (QC): 88 ADL-Treatment Eating (QC): 2 Oral Hygiene (QC): 2 Shower/Bathe Self (QC): 2 Upper Body Dressing (QC): 1 Lower Body Dressing (QC): 4 On/Off Footwear (QC): 4 Toileting Hygiene (QC): 3 Toilet Transfer (QC): 4 Assessment/Plan Assessment and Plan Assess & Plan/Chief Complaint 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 intake 11/08/2022: Supportive care Monitor closely 11/09/2022: Doing well Heating pad for back pain rather than pain medication that could confuse him 11/10/2021: Supportive care (1) Subdural hematoma VIVI WHALEY DO Nov 10, 2022 04:50
[2022-11-10] MEDS: KCL 10 MEQ TAB (MICRO K) PO SCH (06:44)
[2022-11-10] MEDS: MULTIVIT W/MINERALS TAB (THERAGRAN M) PO SCH (06:44)
[2022-11-10] MEDS: FERROUS SULF 325 MG (IRON) TAB PO SCH (06:44)
[2022-11-10 08:00] VITALS: BP 132/76
[2022-11-10] MEDS: DOCUSATE SODIUM 100 MG (COLACE) CAP PO SCH ×2 (08:22→21:32)
[2022-11-10] MEDS: SENNA W/DOCUSATE (SENOKOT S) TABLET PO SCH ×4 (08:22→21:32)
[2022-11-10] MEDS: METHOCARBAMOL 500 MG (ROBAXIN) TABLET PO SCH ×2 (08:22→21:09)
[2022-11-10] MEDS: ASPIRIN E.C. 81 MG (ECOTRIN) TAB PO SCH (08:22)
[2022-11-10] MEDS: polyethylene glycoL POWDER 17 GM (MIRALAX) PACK PO SCH ×2 (08:23→21:32)
[2022-11-10] MEDS: DICLOFENAC 1% GEL 100 GM (VOLTAREN) TUBE TOP SCH ×4 (08:49→21:08)
[2022-11-10] MEDS: IBUPROFEN TABLET 200 MG TAB PO PRN ×2 (10:00→18:14)
[2022-11-10] MEDS: ACETAMINOPHEN ER 650 MG (TYLENOL ARTHRITIS) PO PRN (15:26)
[2022-11-10 20:00] VITALS: BP 124/65
[2022-11-11] MEDS: ACETAMINOPHEN 325 MG TABLET PO PRN (00:48)
[2022-11-11] MEDS: KCL 10 MEQ TAB (MICRO K) PO SCH (06:33)
[2022-11-11] MEDS: MULTIVIT W/MINERALS TAB (THERAGRAN M) PO SCH (06:33)
--- NOTE | 2022-11-11 07:18 | PM&R Progress Note ---
Subjective HPI/CC On Admission Date Seen by Provider: Nov 11, 2022 Time Seen by Provider: 10:00 Subjective/Events-last exam 11/11/2021: Improved status Daughter here using electric shaver to shave home Oncology appt 11/21 No pain except back 11/10/2021: Patient doing well No other concerns Back pain continues to be an issue Family does not want strong pain medication because it can cause some confusion 11/09/2022: Patient doing well More communication ability No other concerns Back pain is improved with heating pad 11/08/2022: Patient doing pretty well Daughter at the bedside Participating pretty well Likely neoplasm will progress 11/07/2022: Patient doing really well Improved expressive aphasia Lungs are clear Eating and drinking pretty well No other concerns 11/06/2022: Patient doing well Participating in therapy Appears to be very weak Expressive aphasia a challenge for communication Reviewed labs Review of Systems General: Fatigue, Malaise Objective Exam Vital Signs Vital Signs Date Time Temp Pulse Resp B/P (MAP) Pulse Ox O2 Delivery O2 Flow Rate FiO2 11/11/22 08:43 Room Air 11/11/22 07:49 36.1 50 14 154/83 (106) 95 Capillary Refill : General Appearance: No Apparent Distress, WD/WN, Chronically ill HEENT: PERRL/EOMI, Normal ENT Inspection, Pharynx Normal Neck: Full Range of Motion, Normal Inspection, Non Tender, Supple, Carotid Bruit Respiratory: Chest Non Tender, Lungs Clear, No Accessory Muscle Use, No Respiratory Distress, Decreased Breath Sounds Cardiovascular: Regular Rate, Rhythm, No Edema, No Gallop, No JVD, No Murmur, Normal Peripheral Pulses Gastrointestinal: Normal Bowel Sounds, No Organomegaly, No Pulsatile Mass, Non Tender, Soft Back: Normal Inspection, No CVA Tenderness, No Vertebral Tenderness Extremity: Normal Capillary Refill, Normal Inspection, Normal Range of Motion, Non Tender, No Calf Tenderness, No Pedal Edema Neurologic/Psychiatric: Alert, security system administrator II-XII Norm as Tested, Abnormal Gait, Depressed Affect, Disoriented, Motor Weakness, Sensory Deficit, Other (Tremor noted upper extremities, generalized ataxia) Skin: Normal Color, Warm/Dry Lymphatic: No Adenopathy Results/Procedures Lab Laboratory Tests 11/11/22 07:05 Patient resulted labs reviewed. FIM Transfers Therapy Code Descriptions/Definitions Functional [place] Measure: 0=Not Assessed/NA 4=Minimal Assistance 1=Total Assistance 5=Supervision or Setup 2=Maximal Assistance 6=Modified [place] 3=Moderate Assistance 7=Complete IndependenceSCALE: Activities may be completed with or without assistive devices. 2-Niowaugqwn-dxpnfyw completes the activity by him/herself with no assistance from a helper. 5-Set-up or Clean-up Assistance-helper sets up or cleans up; patient completes activity. [place] assists only prior to or following the activity. 4-Supervision or Touching Assistance-helper provides verbal cues and/or touching/steadying and/or contact guard assistance as patient completes activity. Assistance may be provided throughout the activity or intermittently. 3-Partial/Moderate Assistance-helper does LESS THAN HALF the effort. [place] lifts, holds or supports trunk or limbs, but provides less than half the effort. 2-Substantial/Maximal Assistance-helper does MORE THAN HALF the effort. [place] lifts or holds trunk or limbs and provides more than half the effort. 3-Vhvfkdxeq-jvvlgj does ALL the effort. Patient does none of the effort to com plete the activity. Or, the assistance of 2 or more helpers is required for the patient to complete the activity. If activity was not attempted, code reason: 7-Patient Refused. 9-Not Applicable-not attempted and the patient did not perform the activity before the current illness, exacerbation or injury. 10-Not Attempted due to Environmental Limitations-(lack of equipment, weather restraints, etc.). 88-Not Attempted due to Medical Conditions or Safety Concerns. Roll Left to Right (QC): 4 Sit to Lying (QC): 4 Sit to Stand (QC): 4 Chair/Jhz-ef-Osudy Xfer(QC): 4 Car Transfer (QC): 3 (mod assist) Gait Training Does the Patient Walk?: Yes Distance: 150' x 2 Walk 10 feet (QC): 3 Walk 50 ft with 2 Turns(QC): 3 Walk 150 ft (QC): 3 Walking 10ft/uneven surface-QC: 3 Gait Persons Needed: 1 Gait Assistive Device: FWW Wheelchair Training Does the Pt Use a Wheelchair?: Yes Wheel 50 ft with 2 turns (QC): 88 Wheel 150 ft (QC): 88 Type of Wheelchair: Manual Stair Training #of Steps: 4 1 Step (curb) (QC): 3 (mod assist) 4 Steps (QC): 3 (mod assist) 12 Steps (QC): 88 Balance Picking up an Object (QC): 88 ADL-Treatment Eating (QC): 2 Oral Hygiene (QC): 2 Shower/Bathe Self (QC): 2 Upper Body Dressing (QC): 1 Lower Body Dressing (QC): 4 On/Off Footwear (QC): 4 Toileting Hygiene (QC): 3 Toilet Transfer (QC): 4 Assessment/Plan Assessment and Plan Assess & Plan/Chief Complaint 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 intake 11/08/2022: Supportive care Monitor closely 11/09/2022: Doing well Heating pad for back pain rather than pain medication that could confuse him 11/10/2021: Supportive care 11/11/2021: Oncology appt at (1) Subdural hematoma VIVI WHALEY DO Nov 11, 2022 07:18
[2022-11-11 07:21] LABS: BASOPHILS # (AUTO) 0.1 10^3/uL (0.0-0.1); BASOPHILS % (AUTO) 1 % (0-10); EOSINOPHILS # (AUTO) 0.4 10^3/uL (0.0-0.3); EOSINOPHILS % (AUTO) 4 % (0-10); HEMATOCRIT 34 % (40-54); HEMOGLOBIN 11.5 g/dL (13.3-17.7); LYMPHOCYTES # (AUTO) 0.8 10^3/uL (1.0-4.0); LYMPHOCYTES % (AUTO) 8 % (12-44); MEAN CORPUSCULAR HEMOGLOBIN 33 pg (25-34); MEAN CORPUSCULAR HGB CONC 34 g/dL (32-36); MEAN CORPUSCULAR VOLUME 98 fL (80-99); MONOCYTES # (AUTO) 1.1 10^3/uL (0.0-1.0); MONOCYTES % (AUTO) 12 % (0-12); NEUTROPHILS % (AUTO) 74 % (42-75); PLATELET COUNT 315 10^3/uL (130-400); WHITE BLOOD COUNT 9.5 10^3/uL (4.3-11.0)
[2022-11-11 07:40] LABS: ALBUMIN 3.5 GM/DL (3.2-4.5); BILIRUBIN,TOTAL 0.3 MG/DL (0.1-1.0); CREATININE SERUM 0.82 MG/DL (0.60-1.30); POTASSIUM 4.2 MMOL/L (3.6-5.0); TOTAL PROTEIN 6.7 GM/DL (6.4-8.2)
[2022-11-11 07:49] VITALS: BP 154/83
[2022-11-11] MEDS: polyethylene glycoL POWDER 17 GM (MIRALAX) PACK PO SCH ×2 (07:55→20:00)
[2022-11-11] MEDS: ASPIRIN E.C. 81 MG (ECOTRIN) TAB PO SCH (07:55)
[2022-11-11] MEDS: METHOCARBAMOL 500 MG (ROBAXIN) TABLET PO SCH ×2 (07:55→21:14)
[2022-11-11] MEDS: SENNA W/DOCUSATE (SENOKOT S) TABLET PO SCH ×4 (07:56→20:00)
[2022-11-11] MEDS: DICLOFENAC 1% GEL 100 GM (VOLTAREN) TUBE TOP SCH ×4 (07:56→21:14)
[2022-11-11] MEDS: DOCUSATE SODIUM 100 MG (COLACE) CAP PO SCH ×2 (07:56→20:00)
--- NOTE | 2022-11-11 08:17 | Occupational Ther Daily Note ---
OT Current Status-Daily Note Subjective Pt denies back pain this date. Limited communication. Appearance Pt returned to sitting in recliner, all needs within reach at therapy departure. Mental Status/Objective Patient Orientation: Person ADL-Treatment Therapy Code Descriptions/Definitions Functional [place] Measure: 0=Not Assessed/NA 4=Minimal Assistance 1=Total Assistance 5=Supervision or Setup 2=Maximal Assistance 6=Modified [place] 3=Moderate Assistance 7=Complete IndependenceSCALE: Activities may be completed with or without assistive devices. 8-Eqzvhvffcf-lpzorgw completes the activity by him/herself with no assistance from a helper. 5-Set-up or Clean-up Assistance-helper sets up or cleans up; patient completes activity. [place] assists only prior to or following the activity. 4-Supervision or Touching Assistance-helper provides verbal cues and/or touching/steadying and/or contact guard assistance as patient completes activity. Assistance may be provided throughout the activity or intermittently. 3-Partial/Moderate Assistance-helper does LESS THAN HALF the effort. [place] lifts, holds or supports trunk or limbs, but provides less than half the effort. 2-Substantial/Maximal Assistance-helper does MORE THAN HALF the effort. [place] lifts or holds trunk or limbs and provides more than half the effort. 3-Ghezlwtpd-orphis does ALL the effort. Patient does none of the effort to complete the activity. Or, the assistance of 2 or more helpers is required for the patient to complete the activity. If activity was not attempted, code reason: 7-Patient Refused. 9-Not Applicable-not attempted and the patient did not perform the activity before the current illness, exacerbation or injury. 10-Not Attempted due to Environmental Limitations-(lack of equipment, weather restraints, etc.). 88-Not Attempted due to Medical Conditions or Safety Concerns. Eating (QC): 2 Upper Body Dressing (QC): 2 On/Off Footwear: 4 (OT doned toby hose, pt able to don socks) Toileting Hygiene (QC): 3 Toilet Transfer (QC): 4 Pt with little motivation to feed self this date. Same methods tried as last feeding session. Pt was able to feed self with adaptations and mod a, however He reports fatigue after 2-3 bites. RN reports pt had taken Tramadol earlier in the morning and has reported fatigue ever since. Max a to feed remaining portion of meal. Pt does not express wants/needs and OT often has to ask if he is full or wants another bite. Max a to don overhead shirt as pt has difficulty motor planning/sequencing steps. Tremors also cause difficulty threading BUE's into sleeves. Pt does not initiate any activity despite extra time given. Other Treatment Pt performed UE exercises with 2# wrist weighted donned to bilateral UE's. Intermittent AAROM for correct form and control of tremors. Tremors not as intense during exercises as they are during adls. 1x10 all planes. Education OT Patient Education: Energy conservation, Exercise program, Modified ADL techniques, Purpose of tx/functional activities Teaching Recipient: Patient Teaching Methods: Demonstration, Discussion Response to Teaching: Reinforcement Needed OT Short Term Goals Short Term Goals Time Frame: Nov 13, 2022 Eatin Oral hygiene: 2 Toileting hygiene: 3 Shower/bathe self: 3 Upper body dressin Lower body dressin Putting on/taking off footwear: 5 OT Stem Mounter Goals Senior Care Goals Time Frame: Nov 22, 2022 Acute change in mental status: 1 Inattention: 2 Disorganized thinkin Altered level of consciousness: 0 Eating (QC): 3 Oral Hygiene (QC): 3 Toileting Hygiene (QC): 5 Shower/Bathe Self (QC): 5 Upper Body Dressing (QC): 5 Lower Body Dressing (QC): 5 On/Off Footwear (QC): 5 Additional Goals: 1-Demonstrate ADL Tasks, 2-Verbalize Understanding, 3- ImproveStrength/Michael 1=Demonstrate adherence to instructed precautions during ADL tasks. 2=Patient will verbalize/demonstrate understanding of assistive dev ices/modifications for ADL. 3=Patient will improve strength/tolerance for activity to enable patient to perform ADL's. OT Education/Plan Problem List/Assessment Assessment: Decreased Activ Tolerance, Decreased Safety Aware, Decreased UE Strength, Impaired Coordination, Impaired Self-Care Skills, Restricted Funct UE ROM Discharge Recommendations Plan/Recommendations: Continue POC Treatment Plan/Plan of Care Treatment,Training & Education: Yes Patient would benefit from OT for education, treatment and training to promote i ndependence in ADL's, mobility, safety and/or upper extremity function for ADL's. Plan of Care: ADL Retraining, Caregiver Training, Cognitive Retraining, Functional Mobility, Group Exercise/Act as Ind, UE Funct Exercise/Act, UE Neurom us Re-Ed/Coord, Visual/Perceptual Retrain Treatment Duration: Nov 22, 2022 Frequency: At least 5 of 7 days/Wk (IRF) Estimated Hrs Per Day: 1.5 hours per day Rehab Potential: Guarded Time Start Time: 07:15 Stop Time: 08:30 DATE: Nov 11, 2022 Total Time Billed (hr/min): 75 Billed Treatment Time 1 visit ADL x4 (55 min) EX (20 min) Estelle Morales OT Nov 11, 2022 08:17
[2022-11-11] MEDS: IBUPROFEN TABLET 200 MG TAB PO PRN ×2 (09:22→21:14)
--- NOTE | 2022-11-11 12:19 | Physical Therapy Daily Note ---
PT Daily Note-Current Subjective Pt sitting in recliner upon arrival. Pt agrees to PT. Pain Location: Lower Location Body Site: Back Pain Description: Ache Comment: Reported but not rated Section J - Health Conditions 1. Rarely or not at all 2. Occasionally 3. Frequently 4. Almost constantly 8. Unable to answer Pain Effect on Sleep: 8 Pain Interference with Therapy: 1 Pain Interference w/Day-to-Day: 3 Mental Status Patient Orientation: Person, Confused, Place Transfers SCALE: Activities may be completed with or without assistive devices. 4-Olhndpdtmz-ljlzwnh completes the activity by him/herself with no assistance from a helper. 5-Set-up or Clean-up Assistance-helper sets up or cleans up; patient completes activity. [place] assists only prior to or following the activity. 4-Supervision or Touching Assistance-helper provides verbal cues and/or t ouching/steadying and/or contact guard assistance as patient completes activity. Assistance may be provided throughout the activity or intermittently. 3-Partial/Moderate Assistance-helper does LESS THAN HALF the effort. [place] lifts, holds or supports trunk or limbs, but provides less than half the effort. 2-Substantial/Maximal Assistance-helper does MORE THAN HALF the effort. [place] lifts or holds trunk or limbs and provides more than half the effort. 2-Yyvxwgewx-hqaqqi does ALL the effort. Patient does none of the effort to complete the activity. Or, the assistance of 2 or more helpers is required for the patient to complete the activity. If activity was not attempted, code reason: 7-Patient Refused. 9-Not Applicable-not attempted and the patient did not perform the activity before the current illness, exacerbation or injury. 10-Not Attempted due to Environmental Limitations-(lack of equipment, weather restraints, etc.). 88-Not Attempted due to Medical Conditions or Safety Concerns. Sit to Stand (QC): 3 Toilet Transfer (QC): 3 Weight Bearing Full Weight Bearing Full Weight Bearing Gait Training Does the Patient Walk?: Yes Distance: 150' Walk 10 feet (QC): 3 Walk 50 ft with 2 Turns(QC): 3 Walk 150 ft (QC): 3 Gait Persons Needed: 1 Gait Assistive Device: FWW Min A for VC & TC due to visual deficits. BROKERAGE PURCHASE AND SALE CLERK assists to keep pt from running into objects during amb. Treatments Pt's daughter discusses AE needs, Family Training and how HH works during tx. Pt TF to standing then amb. to BR. Pt amb. in hallway at Min A (see Gait) before returning to room to rest at end of tx. All needs met, call light in hand. Assessment Current Status: Fair Progress Visual Deficits severely limit independence during tx. Pt demonstrates lack of confidence/unsure in self during amb. VC & TC needed to assist during amb. PT Commercial Sheet Metal Foreman Goals Correction Goals PT Commercial Sheet Metal Foreman Goals Time Frame: Dec 07, 2022 Roll Left & Right (QC): 6 Sit to Lying (QC): 6 Lying-Sitting on Side/Bed(QC): 6 Sit to Stand (QC): 4 (SBA for safety) Chair/Dtp-bq-Hlgsr Xfer(QC): 4 (SBA) Toilet Transfer (QC): 4 (SBA for safety) Car Transfer (QC): 4 (SBA for safety) Does the Patient Walk: Yes Walk 10 feet (QC): 4 (SBA for safety due to ataxia) Walk 50ft with 2 Turns (QC): 4 (SBA due to ataxia) Walk 150 ft (QC): 4 (SBA for safety due to ataxia) Walking 10ft on Uneven Surface: 4 (SBA for safety due to ataxia) 1 Step (curb) (QC): 4 (CGA for safety) 4 Steps (QC): 4 (CGA for safety) 12 Steps (QC): 4 (CGA for safety) Picking up an Object (QC): 1 (due to balance deficits) Does the Pt use WC or Scooter?: No Wheel 50 feet with 2 turns (QC: 3 Type: Manual Wheel 150 feet: 3 Type: Manual PT Plan Problem List Problem List: Safety, Gait Treatment/Plan Treatment Plan: Continue Plan of Care Treatment Plan: Bed Mobility, Concurrent Therapy, Education, Functional Activity Michael, Functional Strength, Group Therapy, Gait, Safety, Therapeutic Exercise, Transfers Treatment Duration: Dec 07, 2022 Frequency: At least 5 of 7 days/Wk (IRF) Estimated Hrs Per Day: 1.5 hours per day Patient and/or Family Agrees t: Yes Safety Risks/Education Patient Education: Gait Training, Transfer Techniques, Correct Positioning, Safety Issues Teaching Recipient: Patient, Family Teaching Methods: Discussion Response to Teaching: Verbalize Understanding Time Time In: 1100 Time Out: 1200 DATE: Nov 11, 2022 Total Billed Treatment Time: 60 Total Billed Treatment 1, GT x2 (30m) & FA x2 (30m) FABRIZIO RANGEL BROKERAGE PURCHASE AND SALE CLERK Nov 11, 2022 12:19
--- NOTE | 2022-11-11 13:49 | Speech Therapy Daily Note ---
Speech Daily Progress Note Subjective Date Seen by Provider: Nov 11, 2022 Time Seen by Provider: 09:30 The patient was seated upright in his recliner, awake, upon entrance to his room by the clinician. The patient greeted the clinician appropriately and was agreeable to participation in the speech, language, and dysphagia treatment session. The patient's family member was present at bedside throughout the treatment session. To note, the patient appeared greatly fatigued on this date, requiring maximum verbal prompting from the clinician for continued alertness and participation. Objective The patient continues to respond appropriately to simple yes and no questions. Due to the patient's fatigue, the patient's family member was utilized to aid the clinician in brainstorming functional phrases the patient could practice to improve his spoken communication. The phrases are: - My name is Scot. - I like to smoke meat. - Hi, how ya' doing? 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 - I live [place] [facility]. Confrontational naming was attempted with familiar objects (spoon and straw). The patient was unable to state the name of either item with function cue, tactile cue, or phonemic cue, identify the item in a field of two, or identify the item with yes or no questions. The patient's fatigue appeared to greatly impact his performance on this date. A review of the patient's swallowing strategies were completed and trials of thin liquid via straw were provided by the clinician. Overt s/s of suspected aspiration were not displayed with straw drinks on this date. Assessment Assessment Current Status: Poor Progress Treatment Plan Continue Plan of Care Speech Short Term Goals Short Term Goals Short Term Goals 1. The patient will demonstrate safe swallowing strategies with 80% accuracy, independently. 2. The patient will display 85% accuracy with confrontational naming of familiar items. Time Frame-STG: One Week. Speech Director Compensation Goals Usp Goals 1. The patient will tolerate the least restrictive diet consistency without s/s of suspected aspiration. 1. The patient will demonstrate increased cognitive linguistic skills for safe discharge to the least restrictive environment. Time Frame: Two Weeks. Speech-Plan Treatment Plan Speech Therapy Treatment Plan: Continue Plan of Care Treatment Duration: Nov 06, 2022 Frequency: Modified Program (IRF) Estimated Hrs Per Day: .5 hour per day Rehab Potential: Guarded Safety Risks/Education Teaching Recipient: Patient, Family Teaching Methods: Demonstration, Discussion Response to Teaching: Reinforcement Needed Education Topics Provided: Results, Recommendations, Plan of Care Time Speech Therapy Time In: 09:30 Speech Therapy Time Out: 10:00 DATE: Nov 11, 2022 Total Billed Time: 30 Billed Treatment Time 1, MISHA DAVEY [facility] Nov 11, 2022 13:49
--- NOTE | 2022-11-11 14:35 | Physical Therapy Daily Note ---
PT Daily Note-Current Subjective Pt sitting in recliner w/daughter present upon arrival. Pt agrees to PT. Pain Section J - Health Conditions 1. Rarely or not at all 2. Occasionally 3. Frequently 4. Almost constantly 8. Unable to answer Pain Effect on Sleep: 8 Pain Interference with Therapy: 1 Pain Interference w/Day-to-Day: 3 Mental Status Patient Orientation: Person, Place Transfers SCALE: Activities may be completed with or without assistive devices. 9-Bjuborfiuh-wakulwt completes the activity by him/herself with no assistance from a helper. 5-Set-up or Clean-up Assistance-helper sets up or cleans up; patient completes activity. [place] assists only prior to or following the activity. 4-Supervision or Touching Assistance-helper provides verbal cues and/or touching/steadying and/or contact guard assistance as patient completes activity. Assistance may be provided throughout the activity or intermittently. 3-Partial/Moderate Assistance-helper does LESS THAN HALF the effort. [place] lifts, holds or supports trunk or limbs, but provides less than half the effort. 2-Substantial/Maximal Assistance-helper does MORE THAN HALF the effort. [place] lifts or holds trunk or limbs and provides more than half the effort. 3-Gunihrejn-ghzhkx does ALL the effort. Patient does none of the effort to complete the activity. Or, the assistance of 2 or more helpers is required for the patient to complete the activity. If activity was not attempted, code reason: 7-Patient Refused. 9-Not Applicable-not attempted and the patient did not perform the activity before the current illness, exacerbation or injury. 10-Not Attempted due to Environmental Limitations-(lack of equipment, weather restraints, etc.). 88-Not Attempted due to Medical Conditions or Safety Concerns. Weight Bearing Full Weight Bearing Full Weight Bearing Treatments SALES OUTFITTER, pt & daughter discuss question of where AE could be obtained or rented/loaned as daughter asked. Pt resting in recliner w/all needs met, call light in hand. Assessment Current Status: Fair Progress Pt still demonstrates aphasic responses when talked to during tx. PT Custodial Goals Custodial Goals PT Custodial Goals Time Frame: Dec 07, 2022 Roll Left & Right (QC): 6 Sit to Lying (QC): 6 Lying-Sitting on Side/Bed(QC): 6 Sit to Stand (QC): 4 (SBA for safety) Chair/Vum-bo-Mcsbi Xfer(QC): 4 (SBA) Toilet Transfer (QC): 4 (SBA for safety) Car Transfer (QC): 4 (SBA for safety) Does the Patient Walk: Yes Walk 10 feet (QC): 4 (SBA for safety due to ataxia) Walk 50ft with 2 Turns (QC): 4 (SBA due to ataxia) Walk 150 ft (QC): 4 (SBA for safety due to ataxia) Walking 10ft on Uneven Surface: 4 (SBA for safety due to ataxia) 1 Step (curb) (QC): 4 (CGA for safety) 4 Steps (QC): 4 (CGA for safety) 12 Steps (QC): 4 (CGA for safety) Picking up an Object (QC): 1 (due to balance deficits) Does the Pt use WC or Scooter?: No Wheel 50 feet with 2 turns (QC: 3 Type: Manual Wheel 150 feet: 3 Type: Manual PT Plan Treatment/Plan Treatment Plan: Continue Plan of Care Treatment Plan: Bed Mobility, Concurrent Therapy, Education, Functional Activity Michael, Functional Strength, Group Therapy, Gait, Safety, Therapeutic Exercise, Transfers Treatment Duration: Dec 07, 2022 Frequency: At least 5 of 7 days/Wk (IRF) Estimated Hrs Per Day: 1.5 hours per day Patient and/or Family Agrees t: Yes Time Time In: 1315 Time Out: 1330 DATE: Nov 11, 2022 Total Billed Treatment Time: 15 Total Billed Treatment 1, FA (15m) FABRIZIO RANGEL SALES OUTFITTER Nov 11, 2022 14:35
[2022-11-11 20:55] VITALS: BP 162/74
--- NOTE | 2022-11-12 05:59 | PM&R Progress Note ---
Subjective HPI/CC On Admission Date Seen by Provider: Nov 12, 2022 Time Seen by Provider: 09:00 Subjective/Events-last exam 11/12/2021: Patient doing very well Conversing much better Walking around well 11/11/2021: Improved status Daughter here using electric shaver to shave home Oncology appt 11/21 No pain except back 11/10/2021: Patient doing well No other concerns Back pain continues to be an issue Family does not want strong pain medication because it can cause some confusion 11/09/2022: Patient doing well More communication ability No other concerns Back pain is improved with heating pad 11/08/2022: Patient doing pretty well Daughter at the bedside Participating pretty well Likely neoplasm will progress 11/07/2022: Patient doing really well Improved expressive aphasia Lungs are clear Eating and drinking pretty well No other concerns 11/06/2022: Patient doing well Participating in therapy Appears to be very weak Expressive aphasia a challenge for communication Reviewed labs Review of Systems General: Fatigue, Malaise Objective Exam Vital Signs Vital Signs Date Time Temp Pulse Resp B/P (MAP) Pulse Ox O2 Delivery O2 Flow Rate FiO2 11/12/22 21:05 Room Air 11/12/22 19:42 36.2 55 16 121/65 (83) 94 Capillary Refill : General Appearance: No Apparent Distress, WD/WN, Chronically ill HEENT: PERRL/EOMI, Normal ENT Inspection, Pharynx Normal Neck: Full Range of Motion, Normal Inspection, Non Tender, Supple, Carotid Bruit Respiratory: Chest Non Tender, Lungs Clear, No Accessory Muscle Use, No Respiratory Distress, Decreased Breath Sounds Cardiovascular: Regular Rate, Rhythm, No Edema, No Gallop, No JVD, No Murmur, Normal Peripheral Pulses Gastrointestinal: Normal Bowel Sounds, No Organomegaly, No Pulsatile Mass, Non Tender, Soft Back: Normal Inspection, No CVA Tenderness, No Vertebral Tenderness Extremity: Normal Capillary Refill, Normal Inspection, Normal Range of Motion, Non Tender, No Calf Tenderness, No Pedal Edema Neurologic/Psychiatric: Alert, research nutritionist II-XII Norm as Tested, Abnormal Gait, Depressed Affect, Disoriented, Motor Weakness, Sensory Deficit, Other (Tremor noted upper extremities, generalized ataxia) Skin: Normal Color, Warm/Dry Lymphatic: No Adenopathy Results/Procedures Lab Patient resulted labs reviewed. FIM Transfers Therapy Code Descriptions/Definitions Functional [place] Measure: 0=Not Assessed/NA 4=Minimal Assistance 1=Total Assistance 5=Supervision or Setup 2=Maximal Assistance 6=Modified [place] 3=Moderate Assistance 7=Complete IndependenceSCALE: Activities may be completed with or without assistive devices. 4-Iwftatqfug-ctudciw completes the activity by him/herself with no assistance from a helper. 5-Set-up or Clean-up Assistance-helper sets up or cleans up; patient completes activity. [place] assists only prior to or following the activity. 4-Supervision or Touching Assistance-helper provides verbal cues and/or touching/steadying and/or contact guard assistance as patient completes activity. Assistance may be provided throughout the activity or intermittently. 3-Partial/Moderate Assistance-helper does LESS THAN HALF the effort. [place] lifts, holds or supports trunk or limbs, but provides less than half the effort. 2-Substantial/Maximal Assistance-helper does MORE THAN HALF the effort. [place] lifts or holds trunk or limbs and provides more than half the effort. 7-Tbfozukcb-pgmxgx does ALL the effort. Patient does none of the effort to complete the activity. Or, the assistance of 2 or more helpers is required for the patient to complete the activity. If activity was not attempted, code reason: 7-Patient Refused. 9-Not Applicable-not attempted and the patient did not perform the activity before the current illness, exacerbation or injury. 10-Not Attempted due to Environmental Limitations-(lack of equipment, weather restraints, etc.). 88-Not Attempted due to Medical Conditions or Safety Concerns. Roll Left to Right (QC): 4 Sit to Lying (QC): 4 Sit to Stand (QC): 3 Chair/Agy-vq-Rimkw Xfer(QC): 4 Car Transfer (QC): 3 (mod assist) Gait Training Does the Patient Walk?: Yes Distance: 150' Walk 10 feet (QC): 3 Walk 50 ft with 2 Turns(QC): 3 Walk 150 ft (QC): 3 Walking 10ft/uneven surface-QC: 3 Gait Persons Needed: 1 Gait Assistive Device: FWW Wheelchair Training Does the Pt Use a Wheelchair?: Yes Wheel 50 ft with 2 turns (QC): 88 Wheel 150 ft (QC): 88 Type of Wheelchair: Manual Stair Training #of Steps: 4 1 Step (curb) (QC): 3 (mod assist) 4 Steps (QC): 3 (mod assist) 12 Steps (QC): 88 Balance Picking up an Object (QC): 88 ADL-Treatment Eating (QC): 2 Oral Hygiene (QC): 2 Shower/Bathe Self (QC): 2 Upper Body Dressing (QC): 2 Lower Body Dressing (QC): 4 On/Off Footwear (QC): 4 (OT doned toby hose, pt able to don socks) Toileting Hygiene (QC): 3 Toilet Transfer (QC): 4 Assessment/Plan Assessment and Plan Assess & Plan/Chief Complaint 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 intake 11/08/2022: Supportive care Monitor closely 11/09/2022: Doing well Heating pad for back pain rather than pain medication that could confuse him 11/10/2021: Supportive care 11/11/2021: Oncology appt at 11/12/2021: Much improved (1) Subdural hematoma VIVI WHALEY DO Nov 12, 2022 05:59
[2022-11-12] MEDS: KCL 10 MEQ TAB (MICRO K) PO SCH (06:37)
[2022-11-12] MEDS: FERROUS SULF 325 MG (IRON) TAB PO SCH (06:37)
[2022-11-12] MEDS: MULTIVIT W/MINERALS TAB (THERAGRAN M) PO SCH (06:37)
[2022-11-12 07:49] VITALS: BP 167/76
--- NOTE | 2022-11-12 08:20 | Occupational Ther Daily Note ---
OT Current Status-Daily Note Subjective Pt was able to verbalize that he needed to use the toilet. Denies pain Appearance Pt left sitting in recliner, all needs within reach. Mental Status/Objective Patient Orientation: Person ADL-Treatment Therapy Code Descriptions/Definitions Functional [place] Measure: 0=Not Assessed/NA 4=Minimal Assistance 1=Total Assistance 5=Supervision or Setup 2=Maximal Assistance 6=Modified [place] 3=Moderate Assistance 7=Complete IndependenceSCALE: Activities may be completed with or without assistive devices. 0-Zithxcoyep-tprjnqj completes the activity by him/herself with no assistance from a helper. 5-Set-up or Clean-up Assistance-helper sets up or cleans up; patient completes activity. [place] assists only prior to or following the activity. 4-Supervision or Touching Assistance-helper provides verbal cues and/or touching/steadying and/or contact guard assistance as patient completes activity. Assistance may be provided throughout the activity or intermittently. 3-Partial/Moderate Assistance-helper does LESS THAN HALF the effort. [place] lifts, holds or supports trunk or limbs, but provides less than half the effort. 2-Substantial/Maximal Assistance-helper does MORE THAN HALF the effort. [place] lifts or holds trunk or limbs and provides more than half the effort. 6-Ynmzexwun-ksgvra does ALL the effort. Patient does none of the effort to complete the activity. Or, the assistance of 2 or more helpers is required for the patient to complete the activity. If activity was not attempted, code reason: 7-Patient Refused. 9-Not Applicable-not attempted and the patient did not perform the activity before the current illness, exacerbation or injury. 10-Not Attempted due to Environmental Limitations-(lack of equipment, weather restraints, etc.). 88-Not Attempted due to Medical Conditions or Safety Concerns. Eating (QC): 1 (per nursing report) Shower/Bathe Self (QC): 4 Upper Body Dressing (QC): 2 Lower Body Dressing (QC): 3 On/Off Footwear: 4 Toileting Hygiene (QC): 3 (Pt does not initiate kaela care despite cues, thus a ssist provided.) Toilet Transfer (QC): 4 Pt agreeable to shower. He was able to wash all body parts, yet requires cues to initiate washing and switching to next body part. Slight improvement seen as pt only needed cues to initiate ~50% of body parts vs 100%. Close supervision as he stands to wash kaela area/buttocks. Pt continues to need max a to don overhead s beverley as he demonstrates poor motor planning, sequencing, and BUE tremors. Poor initiation and sequencing observed this date when donning LB clothing, thus needing assist to start pants over R foot. Pt able to thread over L with extra time for sequencing. He stood with SBA, again needs time and cues to start clothing management. Pt is steady on feet but does not initiate any mobility this date. When OT stops advancing walker, pt also stops. He needs max a for management of walker, especially with turns. Since pt does not exhibit any unsteadiness when standing, he may do better with Hand held assist vs use of walker. Other Treatment Pt performed UE exercises with 3# wrist weighted donned to bilateral UE's. Intermittent AAROM for correct form and control of tremors. Tremors not as intense during exercises as they are during adls. 1x12 all planes. Education OT Patient Education: Correct positioning, Exercise program, Modified ADL techniques, Purpose of tx/functional activities, Safety issues, Transfer techniques Teaching Recipient: Patient Teaching Methods: Discussion Response to Teaching: Return Demonstration, Reinforcement Needed OT Short Term Goals Short Term Goals Time Frame: Nov 13, 2022 Eatin Oral hygiene: 2 Toileting hygiene: 3 Shower/bathe self: 3 Upper body dressin Lower body dressin Putting on/taking off footwear: 5 OT Group Home Goals Group Home Goals Time Frame: Nov 22, 2022 Acute change in mental status: 1 Inattention: 2 Disorganized thinkin Altered level of consciousness: 0 Eating (QC): 3 Oral Hygiene (QC): 3 Toileting Hygiene (QC): 5 Shower/Bathe Self (QC): 5 Upper Body Dressing (QC): 5 Lower Body Dressing (QC): 5 On/Off Footwear (QC): 5 Additional Goals: 1-Demonstrate ADL Tasks, 2-Verbalize Understanding, 3- ImproveStrength/Michael 1=Demonstrate adherence to instructed precautions during ADL tasks. 2=Patient will verbalize/demonstrate understanding of assistive devices/joslyn fications for ADL. 3=Patient will improve strength/tolerance for activity to enable patient to perform ADL's. OT Education/Plan Problem List/Assessment Assessment: Decreased Activ Tolerance, Decreased Safety Aware, Decreased UE Strength, Impaired Cognition, Impaired Coordination, Impaired Funct Balance, Impaired Self-Care Skills, Restricted Funct UE ROM, Visual-Perceptual Deficit Discharge Recommendations Plan/Recommendations: Continue POC Treatment Plan/Plan of Care Treatment,Training & Education: Yes Patient would benefit from OT for education, treatment and training to promote independence in ADL's, mobility, safety and/or upper extremity function for ADL's. Plan of Care: ADL Retraining, Caregiver Training, Cognitive Retraining, Functional Mobility, Group Exercise/Act as Ind, UE Funct Exercise/Act, UE Neuromus Re-Ed/Coord, Visual/Perceptual Retrain Treatment Duration: Nov 22, 2022 Frequency: At least 5 of 7 days/Wk (IRF) Estimated Hrs Per Day: 1.5 hours per day Rehab Potential: Guarded Time Start Time: 07:20 Stop Time: 08:35 DATE: Nov 12, 2022 Total Time Billed (hr/min): 75 Billed Treatment Time 1 visit ADL x4 (60 min) EX (15 min) Estelle Morales OT Nov 12, 2022 08:20
[2022-11-12] MEDS: METHOCARBAMOL 500 MG (ROBAXIN) TABLET PO SCH ×2 (08:38→20:37)
[2022-11-12] MEDS: DOCUSATE SODIUM 100 MG (COLACE) CAP PO SCH ×2 (08:38→20:36)
[2022-11-12] MEDS: ASPIRIN E.C. 81 MG (ECOTRIN) TAB PO SCH (08:38)
[2022-11-12] MEDS: DICLOFENAC 1% GEL 100 GM (VOLTAREN) TUBE TOP SCH ×4 (08:49→20:38)
[2022-11-12] MEDS: ACETAMINOPHEN 325 MG TABLET PO PRN (08:49)
[2022-11-12] MEDS: SENNA W/DOCUSATE (SENOKOT S) TABLET PO SCH ×4 (08:51→20:37)
[2022-11-12] MEDS: polyethylene glycoL POWDER 17 GM (MIRALAX) PACK PO SCH ×2 (08:51→20:37)
--- NOTE | 2022-11-12 10:06 | Physical Therapy Daily Note ---
PT Daily Note-Current Subjective Patient in recliner pre tx, agrees to PT, has no complaints of pain. Pain Section J - Health Conditions 1. Rarely or not at all 2. Occasionally 3. Frequently 4. Almost constantly 8. Unable to answer Pain Effect on Sleep: 8 Pain Interference with Therapy: 1 Pain Interference w/Day-to-Day: 3 Appearance Patient in recliner post tx with nurse call, phone, tray, all needs met, chair alarm on. Mental Status Patient Orientation: Person, Confused Transfers SCALE: Activities may be completed with or without assistive devices. 0-Rbdbhiwnrh-slpnpnc completes the activity by him/herself with no assistance from a helper. 5-Set-up or Clean-up Assistance-helper sets up or cleans up; patient completes activity. [place] assists only prior to or following the activity. 4-Supervision or Touching Assistance-helper provides verbal cues and/or touching/steadying and/or contact guard assistance as patient completes activity. Assistance may be provided throughout the activity or intermittently. 3-Partial/Moderate Assistance-helper does LESS THAN HALF the effort. [place] lifts, holds or supports trunk or limbs, but provides less than half the effort. 2-Substantial/Maximal Assistance-helper does MORE THAN HALF the effort. [place] lifts or holds trunk or limbs and provides more than half the effort. 1-Uxaywkkax-xbyvvv does ALL the effort. Patient does none of the effort to complete the activity. Or, the assistance of 2 or more helpers is required for the patient to complete the activity. If activity was not attempted, code reason: 7-Patient Refused. 9-Not Applicable-not attempted and the patient did not perform the activity before the current illness, exacerbation or injury. 10-Not Attempted due to Environmental Limitations-(lack of equipment, weather restraints, etc.). 88-Not Attempted due to Medical Conditions or Safety Concerns. Sit to Stand (QC): 3 Chair/Ryy-fs-Wzczr Xfer(QC): 3 cues for positioning and safety , often needs tactile cueing Weight Bearing Full Weight Bearing Full Weight Bearing Gait Training Distance: 150'x3 Walk 10 feet (QC): 3 Walk 50 ft with 2 Turns(QC): 3 Walk 150 ft (QC): 3 Gait Persons Needed: 1 Gait Assistive Device: FWW Patient also ambulated with TORTILLA MAKER and still needs min assist to direct him, needs help guiding walker, doesn't seem to be able to see during ambulation Exercises Standing: Hip Abduction (had a lot of difficulty going to the side), Heel/toe raises, Marching, Mini squats Standing Reps: 20 LAQ alternating for 5 min NuStep Minutes: 15 NuStep Workload: 4 Treatments strengthening, transfers, ambulation Assessment Current Status: Poor Progress patient has tremors, visual impairments, needs guiding during ambulation and transfers PT Care Home Goals Care Home Goals PT Flow Worker Goals Time Frame: Dec 07, 2022 Roll Left & Right (QC): 6 Sit to Lying (QC): 6 Lying-Sitting on Side/Bed(QC): 6 Sit to Stand (QC): 4 (SBA for safety) Chair/Ltm-pi-Hlrsr Xfer(QC): 4 (SBA) Toilet Transfer (QC): 4 (SBA for safety) Car Transfer (QC): 4 (SBA for safety) Does the Patient Walk: Yes Walk 10 feet (QC): 4 (SBA for safety due to ataxia) Walk 50ft with 2 Turns (QC): 4 (SBA due to ataxia) Walk 150 ft (QC): 4 (SBA for safety due to ataxia) Walking 10ft on Uneven Surface: 4 (SBA for safety due to ataxia) 1 Step (curb) (QC): 4 (CGA for safety) 4 Steps (QC): 4 (CGA for safety) 12 Steps (QC): 4 (CGA for safety) Picking up an Object (QC): 1 (due to balance deficits) Does the Pt use WC or Scooter?: No Wheel 50 feet with 2 turns (QC: 3 Type: Manual Wheel 150 feet: 3 Type: Manual PT Plan Problem List Problem List: Activity Tolerance, Functional Strength, Safety, Balance, Gait, Transfer, Bed Mobility, ROM Treatment/Plan Treatment Plan: Continue Plan of Care Treatment Plan: Bed Mobility, Concurrent Therapy, Education, Functional Activity Michael, Functional Strength, Group Therapy, Gait, Safety, Therapeutic Exercise, Transfers Treatment Duration: Dec 07, 2022 Frequency: At least 5 of 7 days/Wk (IRF) Estimated Hrs Per Day: 1.5 hours per day Patient and/or Family Agrees t: Yes Safety Risks/Education Patient Education: Gait Training, Transfer Techniques, Correct Positioning, Safety Issues Teaching Recipient: Patient Teaching Methods: Demonstration, Discussion Response to Teaching: Reinforcement Needed Time Time In: 0900 Time Out: 1015 DATE: Nov 12, 2022 Total Billed Treatment Time: 75 Total Billed Treatment 1 visit EX 30' FA 45' NO MERRILL PT Nov 12, 2022 10:06
[2022-11-12] MEDS: IBUPROFEN TABLET 200 MG TAB PO PRN (10:43)
--- NOTE | 2022-11-12 12:02 | Speech Therapy Daily Note ---
Speech Daily Progress Note Subjective Date Seen by Provider: Nov 12, 2022 Time Seen by Provider: 10:00 The patient was seated upright in his recliner, awake and alert, upon entrance to his room by the clinician. The patient greeted the clinician and was agreeable to participation in the cognitive and dysphagia treatment session. To note, the patient displays increased alertness and participation on this date with a decrease in verbal redirection from the clinician. Objective The patient reported he is tolerating the soft and bite size diet consistency with thin liquids. The patient denied the presence of s/s of suspected aspiration with his current P.O. intake. Safe swallowing strategies were reviewed by the clinician. The patient was able to read five functional phrases aloud to the clinician with additional processing and response time provided. Intermittent initial phonemic cues were provided. The patient was able to repeat each functional phrase with 100% accuracy. The patient additionally responds appropriately with short phrases to the clinician's questions regarding his hobbies and skills. The patient does not exhibit any self-initiation in conversation or tasks. Continued rgzm-lg-[id number] sequencing is required with direct modeling by the clinician. Assessment Assessment Current Status: Fair Progress Treatment Plan Continue Plan of Care Speech Short Term Goals Short Term Goals Short Term Goals 1. The patient will demonstrate safe swallowing strategies with 80% accuracy, independently. 2. The patient will display 85% accuracy with confrontational naming of familiar items. Time Frame-STG: One Week. Speech Alf Goals Alf Goals 1. The patient will tolerate the least restrictive diet consistency without s/s of suspected aspiration. 1. The patient will demonstrate increased cognitive linguistic skills for safe discharge to the least restrictive environment. Time Frame: Two Weeks. Speech-Plan Treatment Plan Speech Therapy Treatment Plan: Continue Plan of Care Treatment Duration: Nov 06, 2022 Frequency: Modified Program (IRF) Estimated Hrs Per Day: .5 hour per day Rehab Potential: Guarded Safety Risks/Education Teaching Recipient: Patient Teaching Methods: Demonstration, Discussion Response to Teaching: Reinforcement Needed Education Topics Provided: Functional Phrases, Sequencing, Swallowing Strategies Time Speech Therapy Time In: 10:00 Speech Therapy Time Out: 10:30 DATE: Nov 12, 2022 Total Billed Time: 30 Billed Treatment Time 1MISHA SLTS LOY, ELIZABETH ST Nov 12, 2022 12:02
[2022-11-12 17:27] VITALS: BP 150/68
[2022-11-12 19:42] VITALS: BP 121/65
[2022-11-13] MEDS: MULTIVIT W/MINERALS TAB (THERAGRAN M) PO SCH (06:18)
[2022-11-13] MEDS: KCL 10 MEQ TAB (MICRO K) PO SCH (06:19)
[2022-11-13 07:11] VITALS: BP 191/74
[2022-11-13 07:30] VITALS: BP 173/70
[2022-11-13] MEDS: ASPIRIN E.C. 81 MG (ECOTRIN) TAB PO SCH (08:17)
[2022-11-13] MEDS: METHOCARBAMOL 500 MG (ROBAXIN) TABLET PO SCH ×2 (08:18→20:49)
[2022-11-13] MEDS: SENNA W/DOCUSATE (SENOKOT S) TABLET PO SCH ×4 (08:22→20:49)
[2022-11-13] MEDS: DOCUSATE SODIUM 100 MG (COLACE) CAP PO SCH ×2 (08:22→20:49)
[2022-11-13] MEDS: polyethylene glycoL POWDER 17 GM (MIRALAX) PACK PO SCH ×2 (08:27→20:49)
[2022-11-13] MEDS: DICLOFENAC 1% GEL 100 GM (VOLTAREN) TUBE TOP SCH ×4 (08:30→20:50)
--- NOTE | 2022-11-13 10:00 | PM&R Progress Note ---
Subjective HPI/CC On Admission Date Seen by Provider: Nov 13, 2022 Time Seen by Provider: 11:00 Subjective/Events-last exam 11/13/2022: More improved every day Increased conversing Pain controlled most of the time 11/12/2022: Patient doing very well Conversing much better Walking around well 11/11/2022: Improved status Daughter here using electric shaver to shave home Oncology appt 11/21 No pain except back 11/10/2022: Patient doing well No other concerns Back pain continues to be an issue Family does not want strong pain medication because it can cause some confusion 11/09/2022: Patient doing well More communication ability No other concerns Back pain is improved with heating pad 11/08/2022: Patient doing pretty well Daughter at the bedside Participating pretty well Likely neoplasm will progress 11/07/2022: Patient doing really well Improved expressive aphasia Lungs are clear Eating and drinking pretty well No other concerns 11/06/2022: Patient doing well Participating in therapy Appears to be very weak Expressive aphasia a challenge for communication Reviewed labs Review of Systems General: Fatigue, Malaise Objective Exam Vital Signs Vital Signs Date Time Temp Pulse Resp B/P (MAP) Pulse Ox O2 Delivery O2 Flow Rate FiO2 11/13/22 20:55 Room Air 11/13/22 20:53 36.0 62 18 130/67 (88) 95 Capillary Refill : General Appearance: No Apparent Distress, WD/WN, Chronically ill HEENT: PERRL/EOMI, Normal ENT Inspection, Pharynx Normal Neck: Full Range of Motion, Normal Inspection, Non Tender, Supple, Carotid Brui t Respiratory: Chest Non Tender, Lungs Clear, No Accessory Muscle Use, No Respiratory Distress, Decreased Breath Sounds Cardiovascular: Regular Rate, Rhythm, No Edema, No Gallop, No JVD, No Murmur, Normal Peripheral Pulses Gastrointestinal: Normal Bowel Sounds, No Organomegaly, No Pulsatile Mass, Non Tender, Soft Back: Normal Inspection, No CVA Tenderness, No Vertebral Tenderness Extremity: Normal Capillary Refill, Normal Inspection, Normal Range of Motion, Non Tender, No Calf Tenderness, No Pedal Edema Neurologic/Psychiatric: Alert, binder layer II-XII Norm as Tested, Abnormal Gait, Depressed Affect, Disoriented, Motor Weakness, Sensory Deficit, Other (Tremor noted upper extremities, generalized ataxia) Skin: Normal Color, Warm/Dry Lymphatic: No Adenopathy Results/Procedures Lab Patient resulted labs reviewed. FIM Transfers Therapy Code Descriptions/Definitions Functional [place] Measure: 0=Not Assessed/NA 4=Minimal Assistance 1=Total Assistance 5=Supervision or Setup 2=Maximal Assistance 6=Modified [place] 3=Moderate Assistance 7=Complete IndependenceSCALE: Activities may be completed with or without assistive devices. 1-Oqqybsyqus-yrhrgsi completes the activity by him/herself with no assistance from a helper. 5-Set-up or Clean-up Assistance-helper sets up or cleans up; patient completes activity. [place] assists only prior to or following the activity. 4-Supervision or Touching Assistance-helper provides verbal cues and/or t ouching/steadying and/or contact guard assistance as patient completes activity. Assistance may be provided throughout the activity or intermittently. 3-Partial/Moderate Assistance-helper does LESS THAN HALF the effort. [place] lifts, holds or supports trunk or limbs, but provides less than half the effort. 2-Substantial/Maximal Assistance-helper does MORE THAN HALF the effort. [place] lifts or holds trunk or limbs and provides more than half the effort. 1-Yqrogttst-jidxtd does ALL the effort. Patient does none of the effort to complete the activity. Or, the assistance of 2 or more helpers is required for the patient to complete the activity. If activity was not attempted, code reason: 7-Patient Refused. 9-Not Applicable-not attempted and the patient did not perform the activity before the current illness, exacerbation or injury. 10-Not Attempted due to Environmental Limitations-(lack of equipment, weather restraints, etc.). 88-Not Attempted due to Medical Conditions or Safety Concerns. Roll Left to Right (QC): 4 Sit to Lying (QC): 4 Sit to Stand (QC): 3 Chair/Sib-ly-Olhkg Xfer(QC): 3 Car Transfer (QC): 3 (mod assist) Gait Training Does the Patient Walk?: Yes Distance: 150'x3 Walk 10 feet (QC): 3 Walk 50 ft with 2 Turns(QC): 3 Walk 150 ft (QC): 3 Walking 10ft/uneven surface-QC: 3 Gait Persons Needed: 1 Gait Assistive Device: FWW Wheelchair Training Does the Pt Use a Wheelchair?: Yes Wheel 50 ft with 2 turns (QC): 88 Wheel 150 ft (QC): 88 Type of Wheelchair: Manual Stair Training #of Steps: 4 1 Step (curb) (QC): 3 (mod assist) 4 Steps (QC): 3 (mod assist) 12 Steps (QC): 88 Balance Picking up an Object (QC): 88 ADL-Treatment Eating (QC): 1 (per nursing report) Oral Hygiene (QC): 2 Shower/Bathe Self (QC): 4 Upper Body Dressing (QC): 2 Lower Body Dressing (QC): 3 On/Off Footwear (QC): 4 Toileting Hygiene (QC): 3 (Pt does not initiate kaela care despite cues, thus assist provided.) Toilet Transfer (QC): 4 Assessment/Plan Assessment and Plan Assess & Plan/Chief Complaint 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 intake 11/08/2022: Supportive care Monitor closely 11/09/2022: Doing well Heating pad for back pain rather than pain medication that could confuse him 11/10/2022: Supportive care 11/11/2022: Oncology appt at 11/12/2022: Much improved 11/13/2022: Supportive care Monitor closely (1) Subdural hematoma VIVI WHALEY DO Nov 13, 2022 10:00
--- NOTE | 2022-11-13 10:10 | Speech Therapy Daily Note ---
Speech Daily Progress Note Subjective Date Seen by Provider: Nov 13, 2022 Time Seen by Provider: 08:45 The patient was seated upright in his recliner, awake and alert, upon entrance to his room by the clinician. The patient greeted the clinician appropriately and was agreeable to participation in the cognitive linguistic and dysphagia treatment session. Objective The patient's RN stated the patient displayed difficulty initiating posterior transfer of pills on this date with water. Due to this, the RN stated she crushed the larger pills and placed the items in a puree. Following crushing, the RN stated the patient was able to consume the medication without difficulty. Due to this, the clinician is recommending crushing medication and placing in puree moving forward with the patient's plan of care. The recommendation was shared with the patient, who agreed to this modification. The patient and clinician reviewed the patient's visual field, including a reduction in the right side. Additionally, safety precautions with the walker and initiation of therapy therapy tasks were discussed in detail. At this time, the patient continues to respond appropriately in short phrases to simple questions poised by the clinician. However, the patient does not initiate conversation or initial action without cueing. The patient continues to require maximum verbal cueing for completion of therapy tasks and participation in structured conversation. Assessment Assessment Current Status: Fair Progress Treatment Plan Continue Plan of Care Speech Short Term Goals Short Term Goals Short Term Goals 1. The patient will demonstrate safe swallowing strategies with 80% accuracy, independently. 2. The patient will display 85% accuracy with confrontational naming of familiar items. Time Frame-STG: One Week. Speech Hand Counter Goals Hand Counter Goals 1. The patient will tolerate the least restrictive diet consistency without s/s of suspected aspiration. 1. The patient will demonstrate increased cognitive linguistic skills for safe discharge to the least restrictive environment. Time Frame: Two Weeks. Speech-Plan Treatment Plan Speech Therapy Treatment Plan: Continue Plan of Care Treatment Duration: Nov 06, 2022 Frequency: Modified Program (IRF) Estimated Hrs Per Day: .5 hour per day Rehab Potential: Guarded Safety Risks/Education Teaching Recipient: Patient Teaching Methods: Demonstration, Discussion Response to Teaching: Reinforcement Needed Education Topics Provided: Safety Precautions, Cueing, Visual Field, Swallowing Precautions Time Speech Therapy Time In: 08:45 Speech Therapy Time Out: 09:15 DATE: Nov 13, 2022 Total Billed Time: 30 Billed Treatment Time 1, SLTS, REID FALK Nov 13, 2022 10:09
--- NOTE | 2022-11-13 10:27 | Physical Therapy Daily Note ---
PT Daily Note-Current Subjective Pt. agrees to Rx, no c/o but states he gets tired with therapies and has some soreness. Pain Location: No Pain Reported Section J - Health Conditions 1. Rarely or not at all 2. Occasionally 3. Frequently 4. Almost constantly 8. Unable to answer Pain Effect on Sleep: 8 Pain Interference with Therapy: 1 Pain Interference w/Day-to-Day: 1 Mental Status Patient Orientation: Confused Transfers SCALE: Activities may be completed with or without assistive devices. 1-Ntasqgtatw-tblpwqg completes the activity by him/herself with no assistance from a helper. 5-Set-up or Clean-up Assistance-helper sets up or cleans up; patient completes activity. [place] assists only prior to or following the activity. 4-Supervision or Touching Assistance-helper provides verbal cues and/or touching/steadying and/or contact guard assistance as patient completes activity. Assistance may be provided throughout the activity or intermittently. 3-Partial/Moderate Assistance-helper does LESS THAN HALF the effort. [place] lifts, holds or supports trunk or limbs, but provides less than half the effort. 2-Substantial/Maximal Assistance-helper does MORE THAN HALF the effort. [place] lifts or holds trunk or limbs and provides more than half the effort. 3-Tmogdltjk-zuwmoe does ALL the effort. Patient does none of the effort to complete the activity. Or, the assistance of 2 or more helpers is required for the patient to complete the activity. If activity was not attempted, code reason: 7-Patient Refused. 9-Not Applicable-not attempted and the patient did not perform the activity before the current illness, exacerbation or injury. 10-Not Attempted due to Environmental Limitations-(lack of equipment, weather restraints, etc.). 88-Not Attempted due to Medical Conditions or Safety Concerns. Roll Left & Right (QC): 4 Sit to Lying (QC): 4 Lying to Sitting/Side of Bed(Q: 4 Sit to Stand (QC): 4 Chair/Htv-gc-Yvghr Xfer(QC): 4 Toilet Transfer (QC): 4 Car Transfer (QC): 3 needs tactile cues to CGA and instruction for all TRFs, Weight Bearing Full Weight Bearing Full Weight Bearing Gait Training Does the Patient Walk?: Yes Walk 10 feet (QC): 4 Walk 50 ft with 2 Turns(QC): 3 Walk 150 ft (QC): 3 Gait Persons Needed: 1 Gait Assistive Device: FWW gait requires therapist to turn and guide FWW all the way, pt. with short steps and flexed posture, does not regard instruction for left or right and needs assist to actually turn the FWW Exercises Supine Ex: Bridging, Ankle pumps, Rolling, Lower trunk rotation, Heel Slides, Short Arc Quads, Scooting, Straight leg raise, Hip abd/add Supine Reps: 15 Seated Therapy Exercises: Ankle pumps, Sit to stand, Long arc quads, Hip flexion, Hip abd/add Seated Reps: 12 NuStep Minutes: 10 NuStep Workload: 1 Treatments toileting, TRFs, gait, therx , in recliner , feet elevated, alarm insitu, warm pack to back, blanket on LEs, many sips of water given during Rx Assessment Current Status: Good Progress needs assist for all mobility PT Halfway Goals Halfway Goals PT Desktop Support Manager Goals Time Frame: Dec 07, 2022 Roll Left & Right (QC): 6 Sit to Lying (QC): 6 Lying-Sitting on Side/Bed(QC): 6 Sit to Stand (QC): 4 (SBA for safety) Chair/Yxg-nv-Ycdrj Xfer(QC): 4 (SBA) Toilet Transfer (QC): 4 (SBA for safety) Car Transfer (QC): 4 (SBA for safety) Does the Patient Walk: Yes Walk 10 feet (QC): 4 (SBA for safety due to ataxia) Walk 50ft with 2 Turns (QC): 4 (SBA due to ataxia) Walk 150 ft (QC): 4 (SBA for safety due to ataxia) Walking 10ft on Uneven Surface: 4 (SBA for safety due to ataxia) 1 Step (curb) (QC): 4 (CGA for safety) 4 Steps (QC): 4 (CGA for safety) 12 Steps (QC): 4 (CGA for safety) Picking up an Object (QC): 1 (due to balance deficits) Does the Pt use WC or Scooter?: No Wheel 50 feet with 2 turns (QC: 3 Type: Manual Wheel 150 feet: 3 Type: Manual PT Plan Treatment/Plan Treatment Plan: Continue Plan of Care Treatment Plan: Bed Mobility, Concurrent Therapy, Education, Functional Activity Michael, Functional Strength, Group Therapy, Gait, Safety, Therapeutic Exercise, Transfers Treatment Duration: Dec 07, 2022 Frequency: At least 5 of 7 days/Wk (IRF) Estimated Hrs Per Day: 1.5 hours per day Patient and/or Family Agrees t: Yes Safety Risks/Education Patient Education: Gait Training, Transfer Techniques, Correct Positioning, Disease Process, Safety Issues Teaching Recipient: Patient Teaching Methods: Demonstration, Discussion Response to Teaching: Unable to Return Demonstration, Unable to Comprehend, Reinforcement Needed Time Time In: 915 Time Out: 1030 DATE: Nov 13, 2022 Total Billed Treatment Time: 75 Total Billed Treatment 1,EX35m,GT25m,FA15m ARIANE MEYER SANITARY INSPECTOR Nov 13, 2022 10:27
--- NOTE | 2022-11-13 11:11 | Occupational Ther Daily Note ---
OT Current Status-Daily Note Subjective Pt was able to better communicate needs this date. "I think i'm getting tired, can I take a break." Appearance Pt returned to sitting in recliner, all needs within reach at OT departure. Mental Status/Objective Patient Orientation: Person ADL-Treatment Therapy Code Descriptions/Definitions Functional [place] Measure: 0=Not Assessed/NA 4=Minimal Assistance 1=Total Assistance 5=Supervision or Setup 2=Maximal Assistance 6=Modified [place] 3=Moderate Assistance 7=Complete IndependenceSCALE: Activities may be completed with or without assistive devices. 1-Ldizvpzoqo-twcdyer completes the activity by him/herself with no assistance from a helper. 5-Set-up or Clean-up Assistance-helper sets up or cleans up; patient completes activity. [place] assists only prior to or following the activity. 4-Supervision or Touching Assistance-helper provides verbal cues and/or touching/steadying and/or contact guard assistance as patient completes activity. Assistance may be provided throughout the activity or intermittently. 3-Partial/Moderate Assistance-helper does LESS THAN HALF the effort. [place] lifts, holds or supports trunk or limbs, but provides less than half the effort. 2-Substantial/Maximal Assistance-helper does MORE THAN HALF the effort. [place] lifts or holds trunk or limbs and provides more than half the effort. 5-Ivxgkoxol-xseouw does ALL the effort. Patient does none of the effort to co mplete the activity. Or, the assistance of 2 or more helpers is required for the patient to complete the activity. If activity was not attempted, code reason: 7-Patient Refused. 9-Not Applicable-not attempted and the patient did not perform the activity before the current illness, exacerbation or injury. 10-Not Attempted due to Environmental Limitations-(lack of equipment, weather restraints, etc.). 88-Not Attempted due to Medical Conditions or Safety Concerns. Lower Body Dressing (QC): 3 (Cues/assist to initiate clothing management, extra time to thread feet) Toileting Hygiene (QC): 3 (cues/assist to initiate clothing management) Other Treatment Pt ambulated to/from therapy gym with hand held assist.Slow but steady gait. Max cues for directions. Pt does not attempt to scan environment but does follow directional cues when given. While in therapy gym, pt participated in arm bike x3 bouts (4:30, 3:30 and 1:25). Pt was able to verbalize that he was tired and needed a break as well as if the resistance was too challenging or easy. No tremors observed during endurance activity. Education OT Patient Education: Modified ADL techniques, Purpose of tx/functional a ctivities, Safety issues Teaching Recipient: Patient Teaching Methods: Discussion Response to Teaching: Return Demonstration, Reinforcement Needed OT Short Term Goals Short Term Goals Time Frame: Nov 13, 2022 Eatin Oral hygiene: 2 Toileting hygiene: 3 Shower/bathe self: 3 Upper body dressin Lower body dressin Putting on/taking off footwear: 5 OT Custom Frame Assembler Goals Custodial Goals Time Frame: Nov 22, 2022 Acute change in mental status: 1 Inattention: 2 Disorganized thinkin Altered level of consciousness: 0 Eating (QC): 3 Oral Hygiene (QC): 3 Toileting Hygiene (QC): 5 Shower/Bathe Self (QC): 5 Upper Body Dressing (QC): 5 Lower Body Dressing (QC): 5 On/Off Footwear (QC): 5 Additional Goals: 1-Demonstrate ADL Tasks, 2-Verbalize Understanding, 3- ImproveStrength/Michael 1=Demonstrate adherence to instructed precautions during ADL tasks. 2=Patient will verbalize/demonstrate understanding of assistive devices/modifications for ADL. 3=Patient will improve strength/tolerance for activity to enable patient to perform ADL's. OT Education/Plan Problem List/Assessment Assessment: Decreased Activ Tolerance, Decreased Safety Aware, Decreased UE Strength, Impaired Cognition, Impaired Coordination, Impaired Funct Balance, Impaired Self-Care Skills, Visual-Perceptual Deficit Discharge Recommendations Plan/Recommendations: Continue POC Treatment Plan/Plan of Care Treatment,Training & Education: Yes Patient would benefit from OT for education, treatment and training to promote independence in ADL's, mobility, safety and/or upper extremity function for ADL's. Plan of Care: ADL Retraining, Caregiver Training, Cognitive Retraining, Functional Mobility, Group Exercise/Act as Ind, UE Funct Exercise/Act, UE Neuromus Re-Ed/Coord, Visual/Perceptual Retrain Treatment Duration: Nov 22, 2022 Frequency: At least 5 of 7 days/Wk (IRF) Estimated Hrs Per Day: 1.5 hours per day Rehab Potential: Guarded Time Start Time: 07:25 Stop Time: 08:15 DATE: Nov 13, 2022 Total Time Billed (hr/min): 50 Billed Treatment Time 1 visit ADL (20 min) EX (15 min) FA (15 min) Estelle Morales OT Nov 13, 2022 11:11
--- NOTE | 2022-11-13 11:29 | Occupational Ther Daily Note ---
OT Current Status-Daily Note Subjective Pt alert, sitting in recliner. Pt agrees to therapy. Pt has difficulty with expressing self, unable to attain pain level if any. Mental Status/Objective Patient Orientation: Person, Non-Verbal/Aphasic ADL-Treatment Therapy Code Descriptions/Definitions Functional [place] Measure: 0=Not Assessed/NA 4=Minimal Assistance 1=Total Assistance 5=Supervision or Setup 2=Maximal Assistance 6=Modified [place] 3=Moderate Assistance 7=Complete IndependenceSCALE: Activities may be completed with or without assistive devices. 7-Aopmhmuooh-ynnilmf completes the activity by him/herself with no assistance from a helper. 5-Set-up or Clean-up Assistance-helper sets up or cleans up; patient completes activity. [place] assists only prior to or following the activity. 4-Supervision or Touching Assistance-helper provides verbal cues and/or touching/steadying and/or contact guard assistance as patient completes activity. Assistance may be provided throughout the activity or intermittently. 3-Partial/Moderate Assistance-helper does LESS THAN HALF the effort. [place] lifts, holds or supports trunk or limbs, but provides less than half the effort. 2-Substantial/Maximal Assistance-helper does MORE THAN HALF the effort. [place] lifts or holds trunk or limbs and provides more than half the effort. 2-Ftxnzozai-oyrkdo does ALL the effort. Patient does none of the effort to complete the activity. Or, the assistance of 2 or more helpers is required for the patient to complete the activity. If activity was not attempted, code reason: 7-Patient Refused. 9-Not Applicable-not attempted and the patient did not perform the activity before the current illness, exacerbation or injury. 10-Not Attempted due to Environmental Limitations-(lack of equipment, weather restraints, etc.). 88-Not Attempted due to Medical Conditions or Safety Concerns. Other Treatment Pt ambulating with close CGA using no AD. Pt ambulated length of 2nd floor hallway and back with 1 lengthy recovery break. Pt requires pc's more than vc's to avoid obstacles. Pt is demonstrating progress with following 1 step directional cues throughout session. Pt fatiguing at end of session and LOB noted with shuffling gait. After session, pt sitting in recliner with call light/phone in reach. Safety measures in place. All needs met. OT Short Term Goals Short Term Goals Time Frame: Nov 13, 2022 Eatin Oral hygiene: 2 Toileting hygiene: 3 Shower/bathe self: 3 Upper body dressin Lower body dressin Putting on/taking off footwear: 5 OT Catalyst Impregnator Goals Catalyst Impregnator Goals Time Frame: Nov 22, 2022 Acute change in mental status: 1 Inattention: 2 Disorganized thinkin Altered level of consciousness: 0 Eating (QC): 3 Oral Hygiene (QC): 3 Toileting Hygiene (QC): 5 Shower/Bathe Self (QC): 5 Upper Body Dressing (QC): 5 Lower Body Dressing (QC): 5 On/Off Footwear (QC): 5 Additional Goals: 1-Demonstrate ADL Tasks, 2-Verbalize Understanding, 3- ImproveStrength/Michael 1=Demonstrate adherence to instructed precautions during ADL tasks. 2=Patient will verbalize/demonstrate understanding of assistive devices/modifications for ADL. 3=Patient will improve strength/tolerance for activity to enable patient to perform ADL's. OT Education/Plan Problem List/Assessment Assessment: Decreased Activ Tolerance, Decreased Safety Aware, Impaired Coordination, Impaired Funct Balance, Visual-Perceptual Deficit Discharge Recommendations Plan/Recommendations: Continue POC Treatment Plan/Plan of Care Patient would benefit from OT for education, treatment and training to promote independence in ADL's, mobility, safety and/or upper extremity function for ADL's. Plan of Care: ADL Retraining, Caregiver Training, Cognitive Retraining, Functional Mobility, Group Exercise/Act as Ind, UE Funct Exercise/Act, UE Neuromus Re-Ed/Coord, Visual/Perceptual Retrain Treatment Duration: Nov 22, 2022 Frequency: At least 5 of 7 days/Wk (IRF) Estimated Hrs Per Day: 1.5 hours per day Rehab Potential: Guarded Time Start Time: 10:50 Stop Time: 11:20 DATE: Nov 13, 2022 Total Time Billed (hr/min): 30 Billed Treatment Time 1 visit-FA 2 (30 min) GARRETT HOLDER Nov 13, 2022 11:29
[2022-11-13] MEDS: SALINE NASAL SPRAY (OCEAN) 45 ML BTL SCH ×3 (14:08→20:49)
[2022-11-13 18:06] VITALS: BP 141/68
[2022-11-13 20:53] VITALS: BP 130/67
--- NOTE | 2022-11-14 05:06 | PM&R Progress Note ---
Subjective HPI/CC On Admission Date Seen by Provider: Nov 14, 2022 Time Seen by Provider: 12:00 Subjective/Events-last exam 11/14/2022: Much improved status Sleeps in between therapies No pain reported except back 11/13/2022: More improved every day Increased conversing Pain controlled most of the time 11/12/2022: Patient doing very well Conversing much better Walking around well 11/11/2022: Improved status Daughter here using electric shaver to shave home Oncology appt 11/21 No pain except back 11/10/2022: Patient doing well No other concerns Back pain continues to be an issue Family does not want strong pain medication because it can cause some confusion 11/09/2022: Patient doing well More communication ability No other concerns Back pain is improved with heating pad 11/08/2022: Patient doing pretty well Daughter at the bedside Participating pretty well Likely neoplasm will progress 11/07/2022: Patient doing really well Improved expressive aphasia Lungs are clear Eating and drinking pretty well No other concerns 11/06/2022: Patient doing well Participating in therapy Appears to be very weak Expressive aphasia a challenge for communication Reviewed labs Review of Systems General: Fatigue, Malaise Objective Exam Vital Signs Vital Signs Date Time Temp Pulse Resp B/P (MAP) Pulse Ox O2 Delivery O2 Flow Rate FiO2 11/14/22 21:40 Room Air 11/14/22 20:04 36.0 55 16 112/65 (81) 97 Capillary Refill : General Appearance: No Apparent Distress, WD/WN, Chronically ill HEENT: PERRL/EOMI, Normal ENT Inspection, Pharynx Normal Neck: Full Range of Motion, Normal Inspection, Non Tender, Supple, Carotid Bruit Respiratory: Chest Non Tender, Lungs Clear, No Accessory Muscle Use, No Respiratory Distress, Decreased Breath Sounds Cardiovascular: Regular Rate, Rhythm, No Edema, No Gallop, No JVD, No Murmur, Normal Peripheral Pulses Gastrointestinal: Normal Bowel Sounds, No Organomegaly, No Pulsatile Mass, Non Tender, Soft Back: Normal Inspection, No CVA Tenderness, No Vertebral Tenderness Extremity: Normal Capillary Refill, Normal Inspection, Normal Range of Motion, Non Tender, No Calf Tenderness, No Pedal Edema Neurologic/Psychiatric: Alert, septic tank servicer II-XII Norm as Tested, Abnormal Gait, Depressed Affect, Disoriented, Motor Weakness, Sensory Deficit, Other (Tremor noted upper extremities, generalized ataxia) Skin: Normal Color, Warm/Dry Lymphatic: No Adenopathy Results/Procedures Lab Patient resulted labs reviewed. FIM Transfers Therapy Code Descriptions/Definitions Functional [place] Measure: 0=Not Assessed/NA 4=Minimal Assistance 1=Total Assistance 5=Supervision or Setup 2=Maximal Assistance 6=Modified [place] 3=Moderate Assistance 7=Complete IndependenceSCALE: Activities may be completed with or without assistive devices. 2-Twmdeczbti-tkcfjog completes the activity by him/herself with no assistance from a helper. 5-Set-up or Clean-up Assistance-helper sets up or cleans up; patient completes activity. [place] assists only prior to or following the activity. 4-Supervision or Touching Assistance-helper provides verbal cues and/or touching/steadying and/or contact guard assistance as patient completes activity. Assistance may be provided throughout the activity or intermittently. 3-Partial/Moderate Assistance-helper does LESS THAN HALF the effort. [place] lifts, holds or supports trunk or limbs, but provides less than half the effort. 2-Substantial/Maximal Assistance-helper does MORE THAN HALF the effort. [place] lifts or holds trunk or limbs and provides more than half the effort. 7-Zfeovymxc-wvzjnw does ALL the effort. Patient does none of the effort to complete the activity. Or, the assistance of 2 or more helpers is required for the patient to complete the activity. If activity was not attempted, code reason: 7-Patient Refused. 9-Not Applicable-not attempted and the patient did not perform the activity before the current illness, exacerbation or injury. 10-Not Attempted due to Environmental Limitations-(lack of equipment, weather restraints, etc.). 88-Not Attempted due to Medical Conditions or Safety Concerns. Roll Left to Right (QC): 4 Sit to Lying (QC): 4 Sit to Stand (QC): 4 Chair/Hib-uc-Fpknp Xfer(QC): 4 Car Transfer (QC): 3 Gait Training Does the Patient Walk?: Yes Distance: 150'x3 Walk 10 feet (QC): 4 Walk 50 ft with 2 Turns(QC): 3 Walk 150 ft (QC): 3 Walking 10ft/uneven surface-QC: 3 Gait Persons Needed: 1 Gait Assistive Device: FWW Wheelchair Training Does the Pt Use a Wheelchair?: Yes Wheel 50 ft with 2 turns (QC): 88 Wheel 150 ft (QC): 88 Type of Wheelchair: Manual Stair Training #of Steps: 4 1 Step (curb) (QC): 3 (mod assist) 4 Steps (QC): 3 (mod assist) 12 Steps (QC): 88 Balance Picking up an Object (QC): 88 ADL-Treatment Eating (QC): 1 (per nursing report) Oral Hygiene (QC): 2 Shower/Bathe Self (QC): 4 Upper Body Dressing (QC): 2 Lower Body Dressing (QC): 3 (Cues/assist to initiate clothing management, extra time to thread feet) On/Off Footwear (QC): 4 Toileting Hygiene (QC): 3 (cues/assist to initiate clothing management) Toilet Transfer (QC): 4 Assessment/Plan Assessment and Plan Assess & Plan/Chief Complaint 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 intake 11/08/2022: Supportive care Monitor closely 11/09/2022: Doing well Heating pad for back pain rather than pain medication that could confuse him 11/10/2022: Supportive care 11/11/2022: Oncology appt at 11/12/2022: Much improved 11/13/2022: Supportive care Monitor closely 11/14/2022: Monitor closely (1) Subdural hematoma VIVI WHALEY DO Nov 14, 2022 05:06
[2022-11-14] MEDS: KCL 10 MEQ TAB (MICRO K) PO SCH (06:30)
[2022-11-14] MEDS: FERROUS SULF 325 MG (IRON) TAB PO SCH (06:30)
[2022-11-14] MEDS: MULTIVIT W/MINERALS TAB (THERAGRAN M) PO SCH (06:30)
[2022-11-14] MEDS: METHOCARBAMOL 500 MG (ROBAXIN) TABLET PO SCH ×2 (07:46→21:23)
[2022-11-14] MEDS: ASPIRIN E.C. 81 MG (ECOTRIN) TAB PO SCH (07:46)
[2022-11-14] MEDS: SENNA W/DOCUSATE (SENOKOT S) TABLET PO SCH ×4 (07:46→21:40)
[2022-11-14] MEDS: polyethylene glycoL POWDER 17 GM (MIRALAX) PACK PO SCH ×2 (07:46→21:40)
[2022-11-14] MEDS: DOCUSATE SODIUM 100 MG (COLACE) CAP PO SCH ×2 (07:46→21:23)
[2022-11-14] MEDS: SALINE NASAL SPRAY (OCEAN) 45 ML BTL SCH ×4 (07:48→21:24)
[2022-11-14] MEDS: DICLOFENAC 1% GEL 100 GM (VOLTAREN) TUBE TOP SCH ×4 (07:49→21:40)
[2022-11-14 08:00] VITALS: BP 144/67
--- NOTE | 2022-11-14 08:29 | Speech Therapy Daily Note ---
Speech Daily Progress Note Subjective Date Seen by Provider: Nov 14, 2022 Time Seen by Provider: 08:45 The patient was seated upright in bed, awake and alert, upon entrance to his room. The patient greeted the clinician appropriately ("brenda") and was agreeable to participation in the language and dysphagia treatment session. Objective The clinician reviewed the patient's current swallowing strategies, specifically the recent modification of crushing medication. The patient denied the presence of s/s of suspected aspiration and verbalized comprehension of the recommendations. - Orientation: The patient was unable to identify the month or year in a field of two with maximum clinician verbal cueing. - Confrontational Naming: The patient displayed 100% accuracy with confrontational naming of familiar objects. - Automatics: With maximum clinician verbal cueing, the patient was able to state the months of the year, days of the week, and count to ten. - Generative Naming: The patient was unable to complete generative naming regardless of maximum clinician verbal cueing. The patient's conversational language has improved in comparison to admission and continues to progress. The patient's initiation remains poor regardless of maximum prompts from the clinician. The clinician practiced initiation topics with the clinician, including greetings and follow up questions. The patient displayed improved accuracy on this date and was encouraged to practice this initiation with staff members. Treatment Plan Continue Plan of Care Speech Short Term Goals Short Term Goals Short Term Goals 1. The patient will demonstrate safe swallowing strategies with 80% accuracy, independently. 2. The patient will display 85% accuracy with confrontational naming of familiar items. Time Frame-STG: One Week. Speech Merchandising Execution Associate Goals Prison Goals 1. The patient will tolerate the least restrictive diet consistency without s/s of suspected aspiration. 1. The patient will demonstrate increased cognitive linguistic skills for safe discharge to the least restrictive environment. Time Frame: Two Weeks. Speech-Plan Treatment Plan Speech Therapy Treatment Plan: Continue Plan of Care Treatment Duration: Nov 06, 2022 Frequency: Modified Program (IRF) Estimated Hrs Per Day: .5 hour per day Rehab Potential: Guarded Safety Risks/Education Teaching Recipient: Patient Teaching Methods: Discussion Response to Teaching: Reinforcement Needed Education Topics Provided: Initiation, Language Progression Time Speech Therapy Time In: 08:45 Speech Therapy Time Out: 09:15 DATE: Nov 14, 2022 Total Billed Time: 30 Billed Treatment Time TAMICA Leggett DYST LOY, [facility]IZ[facility] ST Nov 14, 2022 08:29
--- NOTE | 2022-11-14 10:08 | Occupational Ther Daily Note ---
OT Current Status-Daily Note Subjective Pt alert, sitting in recliner. Pt agrees to therapy. Pt c/o pain, reported to nrsg. Mental Status/Objective Patient Orientation: Person, Place, Non-Verbal/Aphasic, Time, Situation ADL-Treatment Due to increased upper body tremors, assist needed to eat meal. Pt agrees to shower. Pt ambulates to bathroom with hand hold assist. SBA for toilet transfer. Pt attempts to hike pants down over hips though due to tremors assistance given, pt able to hike pants up over hips with close SBA. Assist to cleanse after BM due to tremors. Pt complete shower with SBA sitting 100% of the time. Assist to thread first UE into shirt then pt able to complete other arm and assist to thread head then pt pulled shirt down by self. Due to time constraints, assist given to don pants. After session, pt lying in bed with call light/phone in reach. All needs met in room. Therapy Code Descriptions/Definitions Functional [place] Measure: 0=Not Assessed/NA 4=Minimal Assistance 1=Total Assistance 5=Supervision or Setup 2=Maximal Assistance 6=Modified [place] 3=Moderate Assistance 7=Complete IndependenceSCALE: Activities may be completed with or without assistive devices. 5-Nuuhzenbtx-zrrrsln completes the activity by him/herself with no assistance from a helper. 5-Set-up or Clean-up Assistance-helper sets up or cleans up; patient completes activity. [place] assists only prior to or following the activity. 4-Supervision or Touching Assistance-helper provides verbal cues and/or touching/steadying and/or contact guard assistance as patient completes activity. Assistance may be provided throughout the activity or intermittently. 3-Partial/Moderate Assistance-helper does LESS THAN HALF the effort. [place] lifts, holds or supports trunk or limbs, but provides less than half the effort. 2-Substantial/Maximal Assistance-helper does MORE THAN HALF the effort. [place] lifts or holds trunk or limbs and provides more than half the effort. 7-Blbsnhlzv-vlndpm does ALL the effort. Patient does none of the effort to complete the activity. Or, the assistance of 2 or more helpers is required for the patient to complete the activity. If activity was not attempted, code reason: 7-Patient Refused. 9-Not Applicable-not attempted and the patient did not perform the activity before the current illness, exacerbation or injury. 10-Not Attempted due to Environmental Limitations-(lack of equipment, weather restraints, etc.). 88-Not Attempted due to Medical Conditions or Safety Concerns. Eating (QC): 1 Shower/Bathe Self (QC): 3 Upper Body Dressing (QC): 3 Toileting Hygiene (QC): 3 (mod A) Toilet Transfer (QC): 4 OT Short Term Goals Short Term Goals Time Frame: Nov 13, 2022 Eatin Oral hygiene: 2 Toileting hygiene: 3 Shower/bathe self: 3 Upper body dressin Lower body dressin Putting on/taking off footwear: 5 OT Long-Term Goals Long-Term Goals Time Frame: Nov 22, 2022 Acute change in mental status: 1 Inattention: 2 Disorganized thinkin Altered level of consciousness: 0 Eating (QC): 3 Oral Hygiene (QC): 3 Toileting Hygiene (QC): 5 Shower/Bathe Self (QC): 5 Upper Body Dressing (QC): 5 Lower Body Dressing (QC): 5 On/Off Footwear (QC): 5 Additional Goals: 1-Demonstrate ADL Tasks, 2-Verbalize Understanding, 3- ImproveStrength/Michael 1=Demonstrate adherence to instructed precautions during ADL tasks. 2=Patient will verbalize/demonstrate understanding of assistive devices/modifications for ADL. 3=Patient will improve strength/tolerance for activity to enable patient to perform ADL's. OT Education/Plan Problem List/Assessment Assessment: Decreased Activ Tolerance, Decreased Safety Aware, Impaired Coordination, Impaired Funct Balance, Impaired Self-Care Skills, Visual-Pe rceptual Deficit Discharge Recommendations Plan/Recommendations: Continue POC Treatment Plan/Plan of Care Patient would benefit from OT for education, treatment and training to promote independence in ADL's, mobility, safety and/or upper extremity function for ADL's. Plan of Care: ADL Retraining, Caregiver Training, Cognitive Retraining, Functional Mobility, Group Exercise/Act as Ind, UE Funct Exercise/Act, UE Neuromus Re-Ed/Coord, Visual/Perceptual Retrain Treatment Duration: Nov 22, 2022 Frequency: At least 5 of 7 days/Wk (IRF) Estimated Hrs Per Day: 1.5 hours per day Rehab Potential: Guarded Time Start Time: 07:15 Stop Time: 08:30 DATE: Nov 14, 2022 Total Time Billed (hr/min): 75 Billed Treatment Time 1 visit-ADl 5 (75 min) GARRETT HOLDER Nov 14, 2022 10:08
--- NOTE | 2022-11-14 10:27 | Physical Therapy Daily Note ---
PT Daily Note-Current Subjective Pt. smiles and agrees to Rx. No c/o pain etc Pain Location: No Pain Reported Section J - Health Conditions 1. Rarely or not at all 2. Occasionally 3. Frequently 4. Almost constantly 8. Unable to answer Pain Effect on Sleep: 8 Pain Interference with Therapy: 1 Pain Interference w/Day-to-Day: 1 Transfers SCALE: Activities may be completed with or without assistive devices. 4-Tmufwwkzck-hefvpje completes the activity by him/herself with no assistance from a helper. 5-Set-up or Clean-up Assistance-helper sets up or cleans up; patient completes activity. [place] assists only prior to or following the activity. 4-Supervision or Touching Assistance-helper provides verbal cues and/or touching/steadying and/or contact guard assistance as patient completes activity. Assistance may be provided throughout the activity or intermittently. 3-Partial/Moderate Assistance-helper does LESS THAN HALF the effort. [place] lifts, holds or supports trunk or limbs, but provides less than half the effort. 2-Substantial/Maximal Assistance-helper does MORE THAN HALF the effort. [place] lifts or holds trunk or limbs and provides more than half the effort. 8-Tgprymzft-ikvcmy does ALL the effort. Patient does none of the effort to complete the activity. Or, the assistance of 2 or more helpers is required for the patient to complete the activity. If activity was not attempted, code reason: 7-Patient Refused. 9-Not Applicable-not attempted and the patient did not perform the activity before the current illness, exacerbation or injury. 10-Not Attempted due to Environmental Limitations-(lack of equipment, weather restraints, etc.). 88-Not Attempted due to Medical Conditions or Safety Concerns. Roll Left & Right (QC): 6 Sit to Lying (QC): 4 Lying to Sitting/Side of Bed(Q: 6 Sit to Stand (QC): 6 Chair/Rnu-mg-Hrqvu Xfer(QC): 4 Toilet Transfer (QC): 4 pt. requires assist for TRFs only b/c of vision issues during this Rx Weight Bearing Full Weight Bearing Full Weight Bearing Gait Training Does the Patient Walk?: Yes Walk 10 feet (QC): 4 Walk 50 ft with 2 Turns(QC): 4 Walk 150 ft (QC): 4 Gait Persons Needed: 1 Gait Assistive Device: FWW pt. needs full assist 70% of time to guide walker/propel FWW, pt. does not follow left and right commands and needs walker steered most of Rx, no LOB but needs 70% assist to advance the FWW Exercises Supine Ex: Bridging, Ankle pumps, Rolling, Lower trunk rotation, Heel Slides, Short Arc Quads, Scooting, Straight leg raise, Hip abd/add Supine Reps: 15 Seated Therapy Exercises: Ankle pumps, Sit to stand, Long arc quads, Hip flexion, Hip abd/add Seated Reps: 10 NuStep Minutes: 12 NuStep Workload: 1 Treatments pt. needs assist for TRFs and gait to great degree secondary to poor vision. pt. needs tactile and verbal cues during Rx as he does not follow instruction Assessment Current Status: Good Progress PT Coal Yard Supervisor Goals Coal Yard Supervisor Goals PT Skilled Nursing Goals Time Frame: Dec 07, 2022 Roll Left & Right (QC): 6 Sit to Lying (QC): 6 Lying-Sitting on Side/Bed(QC): 6 Sit to Stand (QC): 4 (SBA for safety) Chair/Rmi-ub-Dmoaj Xfer(QC): 4 (SBA) Toilet Transfer (QC): 4 (SBA for safety) Car Transfer (QC): 4 (SBA for safety) Does the Patient Walk: Yes Walk 10 feet (QC): 4 (SBA for safety due to ataxia) Walk 50ft with 2 Turns (QC): 4 (SBA due to ataxia) Walk 150 ft (QC): 4 (SBA for safety due to ataxia) Walking 10ft on Uneven Surface: 4 (SBA for safety due to ataxia) 1 Step (curb) (QC): 4 (CGA for safety) 4 Steps (QC): 4 (CGA for safety) 12 Steps (QC): 4 (CGA for safety) Picking up an Object (QC): 1 (due to balance deficits) Does the Pt use WC or Scooter?: No Wheel 50 feet with 2 turns (QC: 3 Type: Manual Wheel 150 feet: 3 Type: Manual PT Plan Treatment/Plan Treatment Plan: Continue Plan of Care Treatment Plan: Bed Mobility, Concurrent Therapy, Education, Functional Activit y Michael, Functional Strength, Group Therapy, Gait, Safety, Therapeutic Exercise, Transfers Treatment Duration: Dec 07, 2022 Frequency: At least 5 of 7 days/Wk (IRF) Estimated Hrs Per Day: 1.5 hours per day Patient and/or Family Agrees t: Yes Safety Risks/Education Patient Education: Gait Training, Transfer Techniques, Correct Positioning, Disease Process, Safety Issues Teaching Recipient: Patient Teaching Methods: Demonstration, Discussion Response to Teaching: Verbalize Understanding, Return Demonstration, Reinforcement Needed Time Time In: 915 Time Out: 1030 DATE: Nov 14, 2022 Total Billed Treatment Time: 75 Total Billed Treatment 1,EX40m,GT35m ARIANE MEYER TABLE CUT OFF SAW OPERATOR Nov 14, 2022 10:27
[2022-11-14 17:30] VITALS: BP 126/66
[2022-11-14 20:04] VITALS: BP 112/65
--- NOTE | 2022-11-15 05:27 | PM&R Progress Note ---
Subjective HPI/CC On Admission Date Seen by Provider: Nov 15, 2022 Time Seen by Provider: 12:30 Subjective/Events-last exam 11/15/2022: Supportive care continues Pain is improved Conversing well 11/14/2022: Much improved status Sleeps in between therapies No pain reported except back 11/13/2022: More improved every day Increased conversing Pain controlled most of the time 11/12/2022: Patient doing very well Conversing much better Walking around well 11/11/2022: Improved status Daughter here using electric shaver to shave home Oncology appt 11/21 No pain except back 11/10/2022: Patient doing well No other concerns Back pain continues to be an issue Family does not want strong pain medication because it can cause some confusion 11/09/2022: Patient doing well More communication ability No other concerns Back pain is improved with heating pad 11/08/2022: Patient doing pretty well Daughter at the bedside Participating pretty well Likely neoplasm will progress 11/07/2022: Patient doing really well Improved expressive aphasia Lungs are clear Eating and drinking pretty well No other concerns 11/06/2022: Patient doing well Participating in therapy Appears to be very weak Expressive aphasia a challenge for communication Reviewed labs Review of Systems General: Fatigue, Malaise Objective Exam Vital Signs Vital Signs Date Time Temp Pulse Resp B/P (MAP) Pulse Ox O2 Delivery O2 Flow Rate FiO2 11/15/22 20:53 36.5 54 18 153/69 (97) 99 Room Air Capillary Refill : General Appearance: No Apparent Distress, WD/WN, Chronically ill HEENT: PERRL/EOMI, Normal ENT Inspection, Pharynx Normal Neck: Full Range of Motion, Normal Inspection, Non Tender, Supple, Carotid Bruit Respiratory: Chest Non Tender, Lungs Clear, No Accessory Muscle Use, No Respiratory Distress, Decreased Breath Sounds Cardiovascular: Regular Rate, Rhythm, No Edema, No Gallop, No JVD, No Murmur, Normal Peripheral Pulses Gastrointestinal: Normal Bowel Sounds, No Organomegaly, No Pulsatile Mass, Non Tender, Soft Back: Normal Inspection, No CVA Tenderness, No Vertebral Tenderness Extremity: Normal Capillary Refill, Normal Inspection, Normal Range of Motion, Non Tender, No Calf Tenderness, No Pedal Edema Neurologic/Psychiatric: Alert, single resource boss II-XII Norm as Tested, Abnormal Gait, Depressed Affect, Disoriented, Motor Weakness, Sensory Deficit, Other (Tremor noted upper extremities, generalized ataxia) Skin: Normal Color, Warm/Dry Lymphatic: No Adenopathy Results/Procedures Lab Patient resulted labs reviewed. FIM Transfers Therapy Code Descriptions/Definitions Functional [place] Measure: 0=Not Assessed/NA 4=Minimal Assistance 1=Total Assistance 5=Supervision or Setup 2=Maximal Assistance 6=Modified [place] 3=Moderate Assistance 7=Complete IndependenceSCALE: Activities may be completed with or without assistive devices. 4-Sjecvoyeax-zyccxtq completes the activity by him/herself with no assistance from a helper. 5-Set-up or Clean-up Assistance-helper sets up or cleans up; patient completes activity. [place] assists only prior to or following the activity. 4-Supervision or Touching Assistance-helper provides verbal cues and/or touching/steadying and/or contact guard assistance as patient completes activity. Assistance may be provided throughout the activity or intermittently. 3-Partial/Moderate Assistance-helper does LESS THAN HALF the effort. [place] lifts, holds or supports trunk or limbs, but provides less than half the effort. 2-Substantial/Maximal Assistance-helper does MORE THAN HALF the effort. [place] lifts or holds trunk or limbs and provides more than half the effort. 5-Tncgjadnz-fmodeu does ALL the effort. Patient does none of the effort to complete the activity. Or, the assistance of 2 or more helpers is required for the patient to complete the activity. If activity was not attempted, code reason: 7-Patient Refused. 9-Not Applicable-not attempted and the patient did not perform the activity before the current illness, exacerbation or injury. 10-Not Attempted due to Environmental Limitations-(lack of equipment, weather restraints, etc.). 88-Not Attempted due to Medical Conditions or Safety Concerns. Roll Left to Right (QC): 6 Sit to Lying (QC): 4 Sit to Stand (QC): 6 Chair/Pok-ux-Jfntr Xfer(QC): 4 Car Transfer (QC): 3 Gait Training Does the Patient Walk?: Yes Distance: 150'x3 Walk 10 feet (QC): 4 Walk 50 ft with 2 Turns(QC): 4 Walk 150 ft (QC): 4 Walking 10ft/uneven surface-QC: 3 Gait Persons Needed: 1 Gait Assistive Device: FWW Wheelchair Training Does the Pt Use a Wheelchair?: Yes Wheel 50 ft with 2 turns (QC): 88 Wheel 150 ft (QC): 88 Type of Wheelchair: Manual Stair Training #of Steps: 4 1 Step (curb) (QC): 3 (mod assist) 4 Steps (QC): 3 (mod assist) 12 Steps (QC): 88 Balance Picking up an Object (QC): 88 ADL-Treatment Eating (QC): 1 Oral Hygiene (QC): 2 Shower/Bathe Self (QC): 3 Upper Body Dressing (QC): 3 Lower Body Dressing (QC): 3 (Cues/assist to initiate clothing management, extra time to thread feet) On/Off Footwear (QC): 4 Toileting Hygiene (QC): 3 (mod A) Toilet Transfer (QC): 4 Assessment/Plan Assessment and Plan Assess & Plan/Chief Complaint 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 intake 11/08/2022: Supportive care Monitor closely 11/09/2022: Doing well Heating pad for back pain rather than pain medication that could confuse him 11/10/2022: Supportive care 11/11/2022: Oncology appt at 11/12/2022: Much improved 11/13/2022: Supportive care Monitor closely 11/14/2022: Monitor closely 11/15/2022: Much improved status (1) Subdural hematoma VIVI WHALEY DO Nov 15, 2022 05:27
[2022-11-15] MEDS: KCL 10 MEQ TAB (MICRO K) PO SCH (06:09)
[2022-11-15] MEDS: MULTIVIT W/MINERALS TAB (THERAGRAN M) PO SCH (06:09)
[2022-11-15] MEDS: ASPIRIN E.C. 81 MG (ECOTRIN) TAB PO SCH (07:24)
[2022-11-15] MEDS: polyethylene glycoL POWDER 17 GM (MIRALAX) PACK PO SCH ×2 (07:24→19:53)
[2022-11-15] MEDS: DICLOFENAC 1% GEL 100 GM (VOLTAREN) TUBE TOP SCH ×4 (07:25→20:46)
[2022-11-15] MEDS: METHOCARBAMOL 500 MG (ROBAXIN) TABLET PO SCH ×2 (07:25→20:46)
[2022-11-15] MEDS: DOCUSATE SODIUM 100 MG (COLACE) CAP PO SCH ×2 (07:25→20:46)
[2022-11-15] MEDS: SENNA W/DOCUSATE (SENOKOT S) TABLET PO SCH ×4 (07:26→20:46)
[2022-11-15] MEDS: SALINE NASAL SPRAY (OCEAN) 45 ML BTL SCH ×4 (07:37→20:45)
[2022-11-15 07:55] VITALS: BP 166/83
--- NOTE | 2022-11-15 08:26 | Occupational Ther Daily Note ---
OT Current Status-Daily Note Subjective Pt sitting in recliner, very sleepy. Pt agrees to therapy though takes time to fully wake. No c/o pain at this time. Nrsg in room. Mental Status/Objective Patient Orientation: Person, Unable to Assess (pt fatigued), Non-Verbal/Aphasic ADL-Treatment Working with pt on self feeding. Pt demonstrated intention tremors with feeding. Pt's UE's placed on tray at chest height and pt wt bearing through elbows with built up spoon in hand, food placed on spoon then pt brought mouth to spoon with a small amount of tremors. Pt fatigued quickly and [place] resumed feeding pt. [place] worked on initiation of which food/drink was wanted during th is time, cues for reminders to which pt wanted 50% of the time. Pt would initiate when he was ready for next bite. Pt able to lean forward and place mouth on straw for drink when pt was in position with tray elevated, B UE at chest height. After session, pt sitting in recliner with call light/phone in reach. All needs met in room. Nrsg aware of pt's position. Therapy Code Descriptions/Definitions Functional [place] Measure: 0=Not Assessed/NA 4=Minimal Assistance 1=Total Assistance 5=Supervision or Setup 2=Maximal Assistance 6=Modified [place] 3=Moderate Assistance 7=Complete IndependenceSCALE: Activities may be completed with or without assistive devices. 3-Aniznvgmld-cuxrozs completes the activity by him/herself with no assistance from a helper. 5-Set-up or Clean-up Assistance-helper sets up or cleans up; patient completes activity. [place] assists only prior to or following the activity. 4-Supervision or Touching Assistance-helper provides verbal cues and/or touching/steadying and/or contact guard assistance as patient completes activity. Assistance may be provided throughout the activity or intermittently. 3-Partial/Moderate Assistance-helper does LESS THAN HALF the effort. [place] lifts, holds or supports trunk or limbs, but provides less than half the effort. 2-Substantial/Maximal Assistance-helper does MORE THAN HALF the effort. [place] lifts or holds trunk or limbs and provides more than half the effort. 1-Vawrkibcs-vnfklu does ALL the effort. Patient does none of the effort to complete the activity. Or, the assistance of 2 or more helpers is required for the patient to complete the activity. If activity was not attempted, code reason: 7-Patient Refused. 9-Not Applicable-not attempted and the patient did not perform the activity before the current illness, exacerbation or injury. 10-Not Attempted due to Environmental Limitations-(lack of equipment, weather restraints, etc.). 88-Not Attempted due to Medical Conditions or Safety Concerns. Eating (QC): 2 OT Short Term Goals Short Term Goals Time Frame: Nov 13, 2022 Eatin Oral hygiene: 2 Toileting hygiene: 3 Shower/bathe self: 3 Upper body dressin Lower body dressin Putting on/taking off footwear: 5 OT Intermediate Goals Cinder Crane Operator Goals Time Frame: Nov 22, 2022 Acute change in mental status: 1 Inattention: 2 Disorganized thinkin Altered level of consciousness: 0 Eating (QC): 3 Oral Hygiene (QC): 3 Toileting Hygiene (QC): 5 Shower/Bathe Self (QC): 5 Upper Body Dressing (QC): 5 Lower Body Dressing (QC): 5 On/Off Footwear (QC): 5 Additional Goals: 1-Demonstrate ADL Tasks, 2-Verbalize Understanding, 3- ImproveStrength/Michael 1=Demonstrate adherence to instructed precautions during ADL tasks. 2=Patient will verbalize/demonstrate understanding of assistive devices/modifications for ADL. 3=Patient will improve strength/tolerance for activity to enable patient to perform ADL's. OT Education/Plan Problem List/Assessment Assessment: Decreased Activ Tolerance, Impaired Coordination, Impaired Funct Balance, Impaired Self-Care Skills Discharge Recommendations Plan/Recommendations: Continue POC Treatment Plan/Plan of Care Patient would benefit from OT for education, treatment and training to promote independence in ADL's, mobility, safety and/or upper extremity function for ADL's. Plan of Care: ADL Retraining, Caregiver Training, Cognitive Retraining, Functional Mobility, Group Exercise/Act as Ind, UE Funct Exercise/Act, UE N euromus Re-Ed/Coord, Visual/Perceptual Retrain Treatment Duration: Nov 22, 2022 Frequency: At least 5 of 7 days/Wk (IRF) Estimated Hrs Per Day: 1.5 hours per day Rehab Potential: Guarded Time Start Time: 07:15 Stop Time: 08:30 DATE: Nov 15, 2022 Total Time Billed (hr/min): 75 Billed Treatment Time 1 visit-ADL 5 (75 min) GARRETT HOLDER Nov 15, 2022 08:26
--- NOTE | 2022-11-15 10:30 | Physical Therapy Daily Note ---
PT Daily Note-Current Subjective Pt.. agrees to Rx, no c/o pain. Pain Location: No Pain Reported Section J - Health Conditions 1. Rarely or not at all 2. Occasionally 3. Frequently 4. Almost constantly 8. Unable to answer Pain Effect on Sleep: 8 Pain Interference with Therapy: 1 Pain Interference w/Day-to-Day: 1 Transfers SCALE: Activities may be completed with or without assistive devices. 4-Wmkfcxkbwn-jfouoma completes the activity by him/herself with no assistance from a helper. 5-Set-up or Clean-up Assistance-helper sets up or cleans up; patient completes activity. [place] assists only prior to or following the activity. 4-Supervision or Touching Assistance-helper provides verbal cues and/or touch ing/steadying and/or contact guard assistance as patient completes activity. Assistance may be provided throughout the activity or intermittently. 3-Partial/Moderate Assistance-helper does LESS THAN HALF the effort. [place] lifts, holds or supports trunk or limbs, but provides less than half the effort. 2-Substantial/Maximal Assistance-helper does MORE THAN HALF the effort. [place] lifts or holds trunk or limbs and provides more than half the effort. 9-Jallhcoia-qhjvqx does ALL the effort. Patient does none of the effort to complete the activity. Or, the assistance of 2 or more helpers is required for the patient to complete the activity. If activity was not attempted, code reason: 7-Patient Refused. 9-Not Applicable-not attempted and the patient did not perform the activity before the current illness, exacerbation or injury. 10-Not Attempted due to Environmental Limitations-(lack of equipment, weather restraints, etc.). 88-Not Attempted due to Medical Conditions or Safety Concerns. Roll Left & Right (QC): 4 Sit to Lying (QC): 4 Lying to Sitting/Side of Bed(Q: 4 Sit to Stand (QC): 4 Chair/Pxv-ig-Tkizp Xfer(QC): 4 Toilet Transfer (QC): 4 pt. needs guided every move, to move hands from one surface to another , to initiate the roll or TRF etc all secondary to poor vision Weight Bearing Full Weight Bearing Full Weight Bearing Gait Training Does the Patient Walk?: Yes Walk 10 feet (QC): 4 Walk 50 ft with 2 Turns(QC): 4 Walk 150 ft (QC): 4 Gait Persons Needed: 1 Gait Assistive Device: FWW secondary to vision issues pt. needs min to mod assist to TRF , manage clothes for toileting and to advance FWW and where to go every move Stair Training Stair Training: Handrails/: 2 handrails #of Steps: 4 4 Steps (QC): 3 12 Steps (QC): 88 Stairs: Pattern: Step to needs hand over hand on rails, needs min assist balance and many cues to find to edge of a step to ascend and descend safely every step Exercises Supine Ex: Bridging, Ankle pumps, Quad Set, Rolling, Glut sets, Lower trunk rotation, Heel Slides, Short Arc Quads, Scooting, Straight leg raise, Hip abd/add Supine Reps: 15 NuStep Minutes: 10 NuStep Workload: 2 Treatments TRFs, gait, toileting, ex, balance, stairs Assessment Current Status: Good Progress pt. is dependent for all mobility secondary to vision issues PT Fdc Goals Home Stager Goals PT Fdc Goals Time Frame: Dec 07, 2022 Roll Left & Right (QC): 6 Sit to Lying (QC): 6 Lying-Sitting on Side/Bed(QC): 6 Sit to Stand (QC): 4 (SBA for safety) Chair/Dqx-pu-Hefir Xfer(QC): 4 (SBA) Toilet Transfer (QC): 4 (SBA for safety) Car Transfer (QC): 4 (SBA for safety) Does the Patient Walk: Yes Walk 10 feet (QC): 4 (SBA for safety due to ataxia) Walk 50ft with 2 Turns (QC): 4 (SBA due to ataxia) Walk 150 ft (QC): 4 (SBA for safety due to ataxia) Walking 10ft on Uneven Surface: 4 (SBA for safety due to ataxia) 1 Step (curb) (QC): 4 (CGA for safety) 4 Steps (QC): 4 (CGA for safety) 12 Steps (QC): 4 (CGA for safety) Picking up an Object (QC): 1 (due to balance deficits) Does the Pt use WC or Scooter?: No Wheel 50 feet with 2 turns (QC: 3 Type: Manual Wheel 150 feet: 3 Type: Manual PT Plan Treatment/Plan Treatment Plan: Continue Plan of Care Treatment Plan: Bed Mobility, Concurrent Therapy, Education, Functional Activity Michael, Functional Strength, Group Therapy, Gait, Safety, Therapeutic Exercise, Transfers Treatment Duration: Dec 07, 2022 Frequency: At least 5 of 7 days/Wk (IRF) Estimated Hrs Per Day: 1.5 hours per day Patient and/or Family Agrees t: Yes Safety Risks/Education Patient Education: Gait Training, Transfer Techniques, Steps, Correct Positioning, Disease Process, Safety Issues Teaching Recipient: Patient Response to Teaching: Reinforcement Needed Time Time In: 915 Time Out: 1030 DATE: Nov 15, 2022 Total Billed Treatment Time: 75 Total Billed Treatment 1,GT25m,EX35m,FA15m ARIANE MEYER REAL ESTATE OFFICE SUPERVISOR Nov 15, 2022 10:30
--- NOTE | 2022-11-15 14:29 | Speech Therapy Daily Note ---
Speech Daily Progress Note Subjective Date Seen by Provider: Nov 15, 2022 Time Seen by Provider: 08:45 The patient was seated upright in his recliner, eyes closed and resting, upon entrance to his room by the clinician. The patient greeted the clinician appropriately and was agreeable to participation in the cognitive linguistic and dysphagia treatment session. Objective Upon arrival, the clinician asked the patient a yes/no question regarding his prior therapy. As the patient responded incorrectly, verbal cueing and rephrasing were provided by the clinician. For two additional times, yes and no questions were answered incorrectly, therefore, the clinician shifted the focus of the therapy session towards yes and no questions to re-assess accuracy levels for communication. The patient displayed 80% accuracy with simple yes and no questions. The patient was able to correct with verbal cueing 50% of the time. The patient stated he was unable to view the in-room white board. Due to this, orientation information provided on this white board is not able to be read by the patient. A large font, printable calendar was provided to the patient which he was able to use to locate specific dates. With the calendar in place, the patient's orientation accuracy increased. Swallowing precautions were reviewed and discussed with the patient. The patient denied swallowing concerns or the s/s of suspected aspiration with the clinician. Per patient, he is able to consume pills with increased ease now that we are completing crushing his medication. Assessment Assessment Current Status: Fair Progress Treatment Plan Continue Plan of Care Speech Short Term Goals Short Term Goals Short Term Goals 1. The patient will demonstrate safe swallowing strategies with 80% accuracy, independently. 2. The patient will display 85% accuracy with confrontational naming of familiar items. Time Frame-STG: One Week. Speech Mushroom Cultivator Goals Mushroom Cultivator Goals 1. The patient will tolerate the least restrictive diet consistency without s/s of suspected aspiration. 1. The patient will demonstrate increased cognitive linguistic skills for safe discharge to the least restrictive environment. Time Frame: Two Weeks. Speech-Plan Treatment Plan Speech Therapy Treatment Plan: Continue Plan of Care Treatment Duration: Nov 06, 2022 Frequency: Modified Program (IRF) Estimated Hrs Per Day: .5 hour per day Rehab Potential: Guarded Safety Risks/Education Teaching Recipient: Patient Teaching Methods: Demonstration, Discussion Response to Teaching: Reinforcement Needed Education Topics Provided: Orientation Strategies, Safe Swallowing Precautions Time Speech Therapy Time In: 08:45 Speech Therapy Time Out: 09:15 DATE: Nov 15, 2022 Total Billed Time: 30 Billed Treatment Time 1, TAMICA, REID FALK Nov 15, 2022 14:29
[2022-11-15 17:24] VITALS: BP 129/64
[2022-11-15] MEDS: LACTULOSE SYRUP 10GM/15ML (ENULOSE) 30ML UDC PO PRN ×2 (17:32→17:36)
[2022-11-15 20:53] VITALS: BP 153/69
[2022-11-16] MEDS: KCL 10 MEQ TAB (MICRO K) PO SCH (06:28)
[2022-11-16] MEDS: FERROUS SULF 325 MG (IRON) TAB PO SCH (06:28)
[2022-11-16] MEDS: MULTIVIT W/MINERALS TAB (THERAGRAN M) PO SCH (06:28)
--- NOTE | 2022-11-16 07:12 | PM&R Progress Note ---
Subjective HPI/CC On Admission Date Seen by Provider: Nov 16, 2022 Time Seen by Provider: 11:00 Subjective/Events-last exam 11/16/2022: Patient dramatically improved More alert today Talking well Good attitude 11/15/2022: Supportive care continues Pain is improved Conversing well 11/14/2022: Much improved status Sleeps in between therapies No pain reported except back 11/13/2022: More improved every day Increased conversing Pain controlled most of the time 11/12/2022: Patient doing very well Conversing much better Walking around well 11/11/2022: Improved status Daughter here using electric shaver to shave home Oncology appt 11/21 No pain except back 11/10/2022: Patient doing well No other concerns Back pain continues to be an issue Family does not want strong pain medication because it can cause some confusion 11/09/2022: Patient doing well More communication ability No other concerns Back pain is improved with heating pad 11/08/2022: Patient doing pretty well Daughter at the bedside Participating pretty well Likely neoplasm will progress 11/07/2022: Patient doing really well Improved expressive aphasia Lungs are clear Eating and drinking pretty well No other concerns 11/06/2022: Patient doing well Participating in therapy Appears to be very weak Expressive aphasia a challenge for communication Reviewed labs Review of Systems General: Fatigue, Malaise Objective Exam Vital Signs Vital Signs Date Time Temp Pulse Resp B/P (MAP) Pulse Ox O2 Delivery O2 Flow Rate FiO2 11/16/22 09:06 Room Air 11/16/22 07:30 36.3 72 16 111/72 (85) 96 Capillary Refill : General Appearance: No Apparent Distress, WD/WN, Chronically ill HEENT: PERRL/EOMI, Normal ENT Inspection, Pharynx Normal Neck: Full Range of Motion, Normal Inspection, Non Tender, Supple, Carotid Bruit Respiratory: Chest Non Tender, Lungs Clear, No Accessory Muscle Use, No Respiratory Distress, Decreased Breath Sounds Cardiovascular: Regular Rate, Rhythm, No Edema, No Gallop, No JVD, No Murmur, Normal Peripheral Pulses Gastrointestinal: Normal Bowel Sounds, No Organomegaly, No Pulsatile Mass, Non Tender, Soft Back: Normal Inspection, No CVA Tenderness, No Vertebral Tenderness Extremity: Normal Capillary Refill, Normal Inspection, Normal Range of Motion, Non Tender, No Calf Tenderness, No Pedal Edema Neurologic/Psychiatric: 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 FIM Transfers Therapy Code Descriptions/Definitions Functional [place] Measure: 0=Not Assessed/NA 4=Minimal Assistance 1=Total Assistance 5=Supervision or Setup 2=Maximal Assistance 6=Modified [place] 3=Moderate Assistance 7=Complete IndependenceSCALE: Activities may be completed with or without assistive devices. 5-Ptpuzsuiyy-evnbcdn completes the activity by him/herself with no assistance from a helper. 5-Set-up or Clean-up Assistance-helper sets up or cleans up; patient completes activity. [place] assists only prior to or following the activity. 4-Supervision or Touching Assistance-helper provides verbal cues and/or touching/steadying and/or contact guard assistance as patient completes activity. Assistance may be provided throughout the activity or intermittently. 3-Partial/Moderate Assistance-helper does LESS THAN HALF the effort. [place] lifts, holds or supports trunk or limbs, but provides less than half the effort. 2-Substantial/Maximal Assistance-helper does MORE THAN HALF the effort. [place] lifts or holds trunk or limbs and provides more than half the effort. 7-Ehaoexnhx-nqdkbv does ALL the effort. Patient does none of the effort to complete the activity. Or, the assistance of 2 or more helpers is required for the patient to complete the activity. If activity was not attempted, code reason: 7-Patient Refused. 9-Not Applicable-not attempted and the patient did not perform the activity before the current illness, exacerbation or injury. 10-Not Attempted due to Environmental Limitations-(lack of equipment, weather restraints, etc.). 88-Not Attempted due to Medical Conditions or Safety Concerns. Roll Left to Right (QC): 4 Sit to Lying (QC): 4 Sit to Stand (QC): 4 Chair/Ixx-pa-Wcevg Xfer(QC): 4 Car Transfer (QC): 3 Gait Training Does the Patient Walk?: Yes Distance: 150'x3 Walk 10 feet (QC): 4 Walk 50 ft with 2 Turns(QC): 4 Walk 150 ft (QC): 4 Walking 10ft/uneven surface-QC: 3 Gait Persons Needed: 1 Gait Assistive Device: FWW Wheelchair Training Does the Pt Use a Wheelchair?: Yes Wheel 50 ft with 2 turns (QC): 88 Wheel 150 ft (QC): 88 Type of Wheelchair: Manual Stair Training Stair Training: Handrails/: 2 handrails #of Steps: 4 1 Step (curb) (QC): 3 (mod assist) 4 Steps (QC): 3 12 Steps (QC): 88 Stairs: Pattern: Step to Balance Picking up an Object (QC): 88 ADL-Treatment Eating (QC): 2 Oral Hygiene (QC): 2 Shower/Bathe Self (QC): 3 Upper Body Dressing (QC): 3 Lower Body Dressing (QC): 3 (Cues/assist to initiate clothing management, extra time to thread feet) On/Off Footwear (QC): 4 Toileting Hygiene (QC): 3 (mod A) Toilet Transfer (QC): 4 Assessment/Plan Assessment and Plan Assess & Plan/Chief Complaint 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 intake 11/08/2022: Supportive care Monitor closely 11/09/2022: Doing well Heating pad for back pain rather than pain medication that could confuse him 11/10/2022: Supportive care 11/11/2022: Oncology appt at 11/12/2022: Much improved 11/13/2022: Supportive care Monitor closely 11/14/2022: Monitor closely 11/15/2022: Much improved status 11/16/2022: Supportive care (1) Subdural hematoma VIVI WHALEY DO Nov 16, 2022 07:12
[2022-11-16 07:30] VITALS: BP 111/72
[2022-11-16] MEDS: ASPIRIN E.C. 81 MG (ECOTRIN) TAB PO SCH (08:06)
[2022-11-16] MEDS: DOCUSATE SODIUM 100 MG (COLACE) CAP PO SCH ×2 (08:07→19:28)
[2022-11-16] MEDS: METHOCARBAMOL 500 MG (ROBAXIN) TABLET PO SCH ×2 (08:07→20:05)
[2022-11-16] MEDS: SENNA W/DOCUSATE (SENOKOT S) TABLET PO SCH ×4 (08:07→19:28)
[2022-11-16] MEDS: polyethylene glycoL POWDER 17 GM (MIRALAX) PACK PO SCH ×2 (08:14→19:28)
[2022-11-16] MEDS: SALINE NASAL SPRAY (OCEAN) 45 ML BTL SCH ×4 (09:10→20:07)
[2022-11-16] MEDS: DICLOFENAC 1% GEL 100 GM (VOLTAREN) TUBE TOP SCH ×4 (09:12→20:07)
--- NOTE | 2022-11-16 11:31 | Physical Therapy Daily Note ---
PT Daily Note-Current Subjective Pt sitting in recliner upon arrival. Pt agrees to PT, declining need for BR. Pain Location: No Pain Reported Section J - Health Conditions 1. Rarely or not at all 2. Occasionally 3. Frequently 4. Almost constantly 8. Unable to answer Pain Effect on Sleep: 8 Pain Interference with Therapy: 1 Pain Interference w/Day-to-Day: 1 Mental Status Patient Orientation: Person, Confused, Place Transfers SCALE: Activities may be completed with or without assistive devices. 0-Ygdsnuterb-ivsfgwd completes the activity by him/herself with no assistance from a helper. 5-Set-up or Clean-up Assistance-helper sets up or cleans up; patient completes activity. [place] assists only prior to or following the activity. 4-Supervision or Touching Assistance-helper provides verbal cues and/or touching/steadying and/or contact guard assistance as patient completes activity. Assistance may be provided throughout the activity or intermittently. 3-Partial/Moderate Assistance-helper does LESS THAN HALF the effort. [place] lifts, holds or supports trunk or limbs, but provides less than half the effort. 2-Substantial/Maximal Assistance-helper does MORE THAN HALF the effort. [place] lifts or holds trunk or limbs and provides more than half the effort. 2-Hgvjeootp-hgtlks does ALL the effort. Patient does none of the effort to complete the activity. Or, the assistance of 2 or more helpers is required for the patient to complete the activity. If activity was not attempted, code reason: 7-Patient Refused. 9-Not Applicable-not attempted and the patient did not perform the activity before the current illness, exacerbation or injury. 10-Not Attempted due to Environmental Limitations-(lack of equipment, weather restraints, etc.). 88-Not Attempted due to Medical Conditions or Safety Concerns. Sit to Stand (QC): 4 Weight Bearing Full Weight Bearing Full Weight Bearing Gait Training Distance: 175' x2 Walk 10 feet (QC): 4 Walk 50 ft with 2 Turns(QC): 4 Walk 150 ft (QC): 4 Gait Persons Needed: 1 Gait Assistive Device: FWW VC & TC due to poor vision. Treatments TF to standing and amb. in hallway, taking 1 RB before returning to room to rest in recliner w/all needs met, call light in hand. Assessment Current Status: Fair Progress Pt continues to require VC & TC during TF and amb. due to poor vision. Pt is capable of taking normalized steps but demonstrates apprehension due to lack of confidence in what he sees. PT Abrading Machine Tender Goals Retirement Goals PT Retirement Goals Time Frame: Dec 07, 2022 Roll Left & Right (QC): 6 Sit to Lying (QC): 6 Lying-Sitting on Side/Bed(QC): 6 Sit to Stand (QC): 4 (SBA for safety) Chair/Xnr-pv-Xvjjr Xfer(QC): 4 (SBA) Toilet Transfer (QC): 4 (SBA for safety) Car Transfer (QC): 4 (SBA for safety) Does the Patient Walk: Yes Walk 10 feet (QC): 4 (SBA for safety due to ataxia) Walk 50ft with 2 Turns (QC): 4 (SBA due to ataxia) Walk 150 ft (QC): 4 (SBA for safety due to ataxia) Walking 10ft on Uneven Surface: 4 (SBA for safety due to ataxia) 1 Step (curb) (QC): 4 (CGA for safety) 4 Steps (QC): 4 (CGA for safety) 12 Steps (QC): 4 (CGA for safety) Picking up an Object (QC): 1 (due to balance deficits) Does the Pt use WC or Scooter?: No Wheel 50 feet with 2 turns (QC: 3 Type: Manual Wheel 150 feet: 3 Type: Manual PT Plan Problem List Problem List: Safety, Gait Treatment/Plan Treatment Plan: Continue Plan of Care Treatment Plan: Bed Mobility, Concurrent Therapy, Education, Functional Activity Michael, Functional Strength, Group Therapy, Gait, Safety, Therapeutic Exercise, Transfers Treatment Duration: Dec 07, 2022 Frequency: At least 5 of 7 days/Wk (IRF) Estimated Hrs Per Day: 1.5 hours per day Patient and/or Family Agrees t: Yes Safety Risks/Education Patient Education: Gait Training, Transfer Techniques, Safety Issues Teaching Recipient: Patient Teaching Methods: Discussion Response to Teaching: Reinforcement Needed Time Time In: 1015 Time Out: 1045 DATE: Nov 16, 2022 Total Billed Treatment Time: 30 Total Billed Treatment 1, GT x2 (30m) FABRIZIO RANGEL BACK TACKER Nov 16, 2022 11:31
[2022-11-16 20:28] VITALS: BP 117/62
[2022-11-17] MEDS: MULTIVIT W/MINERALS TAB (THERAGRAN M) PO SCH (06:27)
[2022-11-17] MEDS: KCL 10 MEQ TAB (MICRO K) PO SCH (06:27)
--- NOTE | 2022-11-17 06:57 | PM&R Progress Note ---
Subjective HPI/CC On Admission Date Seen by Provider: Nov 17, 2022 Time Seen by Provider: 15:00 Subjective/Events-last exam 11/17/2022: Patient doing well No concerns Pain is controlled Family training tomorrow 11/16/2022: Patient dramatically improved More alert today Talking well Good attitude 11/15/2022: Supportive care continues Pain is improved Conversing well 11/14/2022: Much improved status Sleeps in between therapies No pain reported except back 11/13/2022: More improved every day Increased conversing Pain controlled most of the time 11/12/2022: Patient doing very well Conversing much better Walking around well 11/11/2022: Improved status Daughter here using electric shaver to shave home Oncology appt 11/21 No pain except back 11/10/2022: Patient doing well No other concerns Back pain continues to be an issue Family does not want strong pain medication because it can cause some confusion 11/09/2022: Patient doing well More communication ability No other concerns Back pain is improved with heating pad 11/08/2022: Patient doing pretty well Daughter at the bedside Participating pretty well Likely neoplasm will progress 11/07/2022: Patient doing really well Improved expressive aphasia Lungs are clear Eating and drinking pretty well No other concerns 11/06/2022: Patient doing well Participating in therapy Appears to be very weak Expressive aphasia a challenge for communication Reviewed labs Review of Systems General: Fatigue, Malaise Objective Exam Vital Signs Vital Signs Date Time Temp Pulse Resp B/P (MAP) Pulse Ox O2 Delivery O2 Flow Rate FiO2 11/17/22 09:22 Room Air 11/17/22 07:16 36.5 89 16 145/73 (97) 98 Capillary Refill : General Appearance: No Apparent Distress, WD/WN, Chronically ill HEENT: PERRL/EOMI, Normal ENT Inspection, Pharynx Normal Neck: Full Range of Motion, Normal Inspection, Non Tender, Supple, Carotid Bruit Respiratory: Chest Non Tender, Lungs Clear, No Accessory Muscle Use, No Respiratory Distress, Decreased Breath Sounds Cardiovascular: Regular Rate, Rhythm, No Edema, No Gallop, No JVD, No Murmur, Normal Peripheral Pulses Gastrointestinal: Normal Bowel Sounds, No Organomegaly, No Pulsatile Mass, Non Tender, Soft Back: Normal Inspection, No CVA Tenderness, No Vertebral Tenderness Extremity: Normal Capillary Refill, Normal Inspection, Normal Range of Motion, Non Tender, No Calf Tenderness, No Pedal Edema Neurologic/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 FIM Transfers Therapy Code Descriptions/Definitions Functional [place] Measure: 0=Not Assessed/NA 4=Minimal Assistance 1=Total Assistance 5=Supervision or Setup 2=Maximal Assistance 6=Modified [place] 3=Moderate Assistance 7=Complete IndependenceSCALE: Activities may be completed with or without assistive devices. 0-Papectmaor-wbixnmx completes the activity by him/herself with no assistance from a helper. 5-Set-up or Clean-up Assistance-helper sets up or cleans up; patient completes activity. [place] assists only prior to or following the activity. 4-Supervision or Touching Assistance-helper provides verbal cues and/or touching/steadying and/or contact guard assistance as patient completes activity. Assistance may be provided throughout the activity or intermittently. 3-Partial/Moderate Assistance-helper does LESS THAN HALF the effort. [place] lifts, holds or supports trunk or limbs, but provides less than half the effort. 2-Substantial/Maximal Assistance-helper does MORE THAN HALF the effort. [place] lifts or holds trunk or limbs and provides more than half the effort. 9-Hwerrgcux-ponydd does ALL the effort. Patient does none of the effort to complete the activity. Or, the assistance of 2 or more helpers is required for the patient to complete the activity. If activity was not attempted, code reason: 7-Patient Refused. 9-Not Applicable-not attempted and the patient did not perform the activity before the current illness, exacerbation or injury. 10-Not Attempted due to Environmental Limitations-(lack of equipment, weather restraints, etc.). 88-Not Attempted due to Medical Conditions or Safety Concerns. Roll Left to Right (QC): 4 Sit to Lying (QC): 4 Sit to Stand (QC): 4 Chair/Jny-ng-Hchts Xfer(QC): 4 Car Transfer (QC): 3 Gait Training Does the Patient Walk?: Yes Distance: 175' x2 Walk 10 feet (QC): 4 Walk 50 ft with 2 Turns(QC): 4 Walk 150 ft (QC): 4 Walking 10ft/uneven surface-QC: 3 Gait Persons Needed: 1 Gait Assistive Device: FWW Wheelchair Training Does the Pt Use a Wheelchair?: Yes Wheel 50 ft with 2 turns (QC): 88 Wheel 150 ft (QC): 88 Type of Wheelchair: Manual Stair Training Stair Training: Handrails/: 2 handrails #of Steps: 4 1 Step (curb) (QC): 3 (mod assist) 4 Steps (QC): 3 12 Steps (QC): 88 Stairs: Pattern: Step to Balance Picking up an Object (QC): 88 ADL-Treatment Eating (QC): 2 Oral Hygiene (QC): 2 Shower/Bathe Self (QC): 3 Upper Body Dressing (QC): 3 Lower Body Dressing (QC): 3 (Cues/assist to initiate clothing management, extra time to thread feet) On/Off Footwear (QC): 4 Toileting Hygiene (QC): 3 (mod A) Toilet Transfer (QC): 4 Assessment/Plan Assessment and Plan Assess & Plan/Chief Complaint 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 intake 11/08/2022: Supportive care Monitor closely 11/09/2022: Doing well Heating pad for back pain rather than pain medication that could confuse him 11/10/2022: Supportive care 11/11/2022: Oncology appt at [facility] 11/12/2022: Much improved 11/13/2022: Supportive care Monitor closely 11/14/2022: Monitor closely 11/15/2022: Much improved status 11/16/2022: Supportive care 11/17/2022: Discharge home Friday (1) Subdural hematoma VIVI WHALEY DO Nov 17, 2022 06:57
[2022-11-17 07:16] VITALS: BP 145/73
[2022-11-17] MEDS: DOCUSATE SODIUM 100 MG (COLACE) CAP PO SCH ×2 (08:44→19:46)
[2022-11-17] MEDS: METHOCARBAMOL 500 MG (ROBAXIN) TABLET PO SCH ×2 (08:44→20:41)
[2022-11-17] MEDS: ASPIRIN E.C. 81 MG (ECOTRIN) TAB PO SCH (08:44)
[2022-11-17] MEDS: SENNA W/DOCUSATE (SENOKOT S) TABLET PO SCH ×4 (08:44→19:47)
[2022-11-17] MEDS: polyethylene glycoL POWDER 17 GM (MIRALAX) PACK PO SCH ×2 (09:08→19:46)
[2022-11-17] MEDS: DICLOFENAC 1% GEL 100 GM (VOLTAREN) TUBE TOP SCH ×4 (09:20→20:52)
[2022-11-17] MEDS: SALINE NASAL SPRAY (OCEAN) 45 ML BTL SCH ×4 (09:20→20:41)
[2022-11-17 20:41] VITALS: BP 122/65
[2022-11-18 05:33] LABS: BASOPHILS # (AUTO) 0.1 10^3/uL (0.0-0.1); BASOPHILS % (AUTO) 1 % (0-10); EOSINOPHILS # (AUTO) 0.3 10^3/uL (0.0-0.3); EOSINOPHILS % (AUTO) 4 % (0-10); HEMATOCRIT 38 % (40-54); LYMPHOCYTES # (AUTO) 0.8 10^3/uL (1.0-4.0); LYMPHOCYTES % (AUTO) 9 % (12-44); MEAN CORPUSCULAR HEMOGLOBIN 33 pg (25-34); MEAN CORPUSCULAR HGB CONC 34 g/dL (32-36); MEAN CORPUSCULAR VOLUME 97 fL (80-99); MEAN PLATELET VOLUME 10.6 fL (9.0-12.2); MONOCYTES % (AUTO) 12 % (0-12); NEUTROPHILS # (AUTO) 6.2 10^3/uL (1.8-7.8); NEUTROPHILS % (AUTO) 73 % (42-75); PLATELET COUNT 194 10^3/uL (130-400); WHITE BLOOD COUNT 8.5 10^3/uL (4.3-11.0)
--- NOTE | 2022-11-18 05:40 | PM&R Progress Note ---
Subjective HPI/CC On Admission Date Seen by Provider: Nov 18, 2022 Time Seen by Provider: 08:30 Subjective/Events-last exam 11/18/2021: Pt is doing well Family training today Labs reviewed Has an appt with oncology 11/17/2022: Patient doing well No concerns Pain is controlled Family training tomorrow 11/16/2022: Patient dramatically improved More alert today Talking well Good attitude 11/15/2022: Supportive care continues Pain is improved Conversing well 11/14/2022: Much improved status Sleeps in between therapies No pain reported except back 11/13/2022: More improved every day Increased conversing Pain controlled most of the time 11/12/2022: Patient doing very well Conversing much better Walking around well 11/11/2022: Improved status Daughter here using electric shaver to shave home Oncology appt 11/21 No pain except back 11/10/2022: Patient doing well No other concerns Back pain continues to be an issue Family does not want strong pain medication because it can cause some confusion 11/09/2022: Patient doing well More communication ability No other concerns Back pain is improved with heating pad 11/08/2022: Patient doing pretty well Daughter at the bedside Participating pretty well Likely neoplasm will progress 11/07/2022: Patient doing really well Improved expressive aphasia Lungs are clear Eating and drinking pretty well No other concerns 11/06/2022: Patient doing well Participating in therapy Appears to be very weak Expressive aphasia a challenge for communication Reviewed labs Review of Systems General: Fatigue, Malaise Objective Exam Vital Signs Vital Signs Date Time Temp Pulse Resp B/P (MAP) Pulse Ox O2 Delivery O2 Flow Rate FiO2 11/18/22 09:00 Room Air 11/18/22 07:31 36.6 60 16 144/76 (98) 97 Capillary Refill : General Appearance: No Apparent Distress, WD/WN, Chronically ill HEENT: PERRL/EOMI, Normal ENT Inspection, Pharynx Normal Neck: Full Range of Motion, Normal Inspection, Non Tender, Supple, Carotid Bruit Respiratory: Chest Non Tender, Lungs Clear, No Accessory Muscle Use, No Respiratory Distress, Decreased Breath Sounds Cardiovascular: Regular Rate, Rhythm, No Edema, No Gallop, No JVD, No Murmur, Normal Peripheral Pulses Gastrointestinal: Normal Bowel Sounds, No Organomegaly, No Pulsatile Mass, Non Tender, Soft Back: Normal Inspection, No CVA Tenderness, No Vertebral Tenderness Extremity: Normal Capillary Refill, Normal Inspection, Normal Range of Motion, Non Tender, No Calf Tenderness, No Pedal Edema Neurologic/Psychiatric: 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 FIM Transfers Therapy Code Descriptions/Definitions Functional [place] Measure: 0=Not Assessed/NA 4=Minimal Assistance 1=Total Assistance 5=Supervision or Setup 2=Maximal Assistance 6=Modified [place] 3=Moderate Assistance 7=Complete IndependenceSCALE: Activities may be completed with or without assistive devices. 6-Xrqqntoame-xqawkik completes the activity by him/herself with no assistance from a helper. 5-Set-up or Clean-up Assistance-helper sets up or cleans up; patient completes activity. [place] assists only prior to or following the activity. 4-Supervision or Touching Assistance-helper provides verbal cues and/or touching/steadying and/or contact guard assistance as patient completes activity. Assistance may be provided throughout the activity or intermittently. 3-Partial/Moderate Assistance-helper does LESS THAN HALF the effort. [place] lifts, holds or supports trunk or limbs, but provides less than half the effort. 2-Substantial/Maximal Assistance-helper does MORE THAN HALF the effort. [place] lifts or holds trunk or limbs and provides more than half the effort. 6-Iupiayknk-lkigpr does ALL the effort. Patient does none of the effort to complete the activity. Or, the assistance of 2 or more helpers is required for the patient to complete the activity. If activity was not attempted, code reason: 7-Patient Refused. 9-Not Applicable-not attempted and the patient did not perform the activity before the current illness, exacerbation or injury. 10-Not Attempted due to Environmental Limitations-(lack of equipment, weather restraints, etc.). 88-Not Attempted due to Medical Conditions or Safety Concerns. Roll Left to Right (QC): 4 Sit to Lying (QC): 4 Sit to Stand (QC): 4 Chair/Sde-gb-Wpsgu Xfer(QC): 4 Car Transfer (QC): 3 Gait Training Does the Patient Walk?: Yes Distance: 175' x2 Walk 10 feet (QC): 4 Walk 50 ft with 2 Turns(QC): 4 Walk 150 ft (QC): 4 Walking 10ft/uneven surface-QC: 3 Gait Persons Needed: 1 Gait Assistive Device: FWW Wheelchair Training Does the Pt Use a Wheelchair?: Yes Wheel 50 ft with 2 turns (QC): 88 Wheel 150 ft (QC): 88 Type of Wheelchair: Manual Stair Training Stair Training: Handrails/: 2 handrails #of Steps: 4 1 Step (curb) (QC): 3 (mod assist) 4 Steps (QC): 3 12 Steps (QC): 88 Stairs: Pattern: Step to Balance Picking up an Object (QC): 88 ADL-Treatment Eating (QC): 2 Oral Hygiene (QC): 2 Shower/Bathe Self (QC): 3 Upper Body Dressing (QC): 3 Lower Body Dressing (QC): 3 (Cues/assist to initiate clothing management, extra time to thread feet) On/Off Footwear (QC): 4 Toileting Hygiene (QC): 3 (mod A) Toilet Transfer (QC): 4 Assessment/Plan Assessment and Plan Assess & Plan/Chief Complaint 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 intake 11/08/2022: Supportive care Monitor closely 11/09/2022: Doing well Heating pad for back pain rather than pain medication that could confuse him 11/10/2022: Supportive care 11/11/2022: Oncology appt at 11/12/2022: Much improved 11/13/2022: Supportive care Monitor closely 11/14/2022: Monitor closely 11/15/2022: Much improved status 11/16/2022: Supportive care 11/17/2022: Discharge home Friday11/18/2021: DC planned (1) Subdural hematoma VIVI WHALEY DO Nov 18, 2022 05:40
[2022-11-18] MEDS: KCL 10 MEQ TAB (MICRO K) PO SCH (05:45)
[2022-11-18] MEDS: MULTIVIT W/MINERALS TAB (THERAGRAN M) PO SCH (05:45)
[2022-11-18] MEDS: FERROUS SULF 325 MG (IRON) TAB PO SCH (05:45)
[2022-11-18 05:54] LABS: ALBUMIN 3.8 GM/DL (3.2-4.5); BILIRUBIN,TOTAL 0.4 MG/DL (0.1-1.0); CALCIUM 9.4 MG/DL (8.5-10.1); CREATININE SERUM 0.97 MG/DL (0.60-1.30); POTASSIUM 4.6 MMOL/L (3.6-5.0)
[2022-11-18 07:31] VITALS: BP 144/76
--- NOTE | 2022-11-18 08:59 | Occupational Ther Daily Note ---
OT Current Status-Daily Note Subjective Pt alert, sitting in recliner. Pt agrees to therapy. No c/o pain at this time. Pt continues to have difficulty initiating verbally and physically. Mental Status/Objective Patient Orientation: Person, Place, Non-Verbal/Aphasic, Time, Situation ADL-Treatment Pt agrees to shower. Pt is dependent for eating due to tremors and initiate difficulties. Hand hold assist to direct pt to bathroom without AD. SBA for toilet transfer. Vc/pc to initiate hiking pants down over hips. Pt able to cleanse self after toileting. After set up, pt able to complete shower sitting on shower bench 75% of the time then using grabbars to stabilize self when standing, SBA after vc to initiate bathing. After set up, pt able to complete lower body dressing with SBA. Set up and positioning clothing, pt able to complete upper body dressing. Set up to complete footwear. Max A for oral care. Daughter in room for family training. After session, pt lying bed with call light/phone in reach. Daughter in room. Therapy Code Descriptions/Definitions Functional [place] Measure: 0=Not Assessed/NA 4=Minimal Assistance 1=Total Assistance 5=Supervision or Setup 2=Maximal Assistance 6=Modified [place] 3=Moderate Assistance 7=Complete IndependenceSCALE: Activities may be completed with or without assistive devices. 1-Exiovgtiqq-enmvuav completes the activity by him/herself with no assistance from a helper. 5-Set-up or Clean-up Assistance-helper sets up or cleans up; patient completes activity. [place] assists only prior to or following the activity. 4-Supervision or Touching Assistance-helper provides verbal cues and/or touching/steadying and/or contact guard assistance as patient completes activity. Assistance may be provided throughout the activity or intermittently. 3-Partial/Moderate Assistance-helper does LESS THAN HALF the effort. [place] lifts, holds or supports trunk or limbs, but provides less than half the effort. 2-Substantial/Maximal Assistance-helper does MORE THAN HALF the effort. [place] lifts or holds trunk or limbs and provides more than half the effort. 9-Rfxsxvhje-afeqzo does ALL the effort. Patient does none of the effort to complete the activity. Or, the assistance of 2 or more helpers is required for the patient to complete the activity. If activity was not attempted, code reason: 7-Patient Refused. 9-Not Applicable-not attempted and the patient did not perform the activity before the current illness, exacerbation or injury. 10-Not Attempted due to Environmental Limitations-(lack of equipment, weather restraints, etc.). 88-Not Attempted due to Medical Conditions or Safety Concerns. Eating (QC): 1 Oral Hygiene (QC): 2 Shower/Bathe Self (QC): 4 Upper Body Dressing (QC): 4 Lower Body Dressing (QC): 4 On/Off Footwear: 4 Toileting Hygiene (QC): 4 Toilet Transfer (QC): 4 BIMS CAM BIMS Expression of Ideas and Wants: Difficulty Understanding Verbal Content: Understands Brief Interview/Mental Status: Yes IRF TISHA BIMS: IRF TISHA BIMS Response (Comments) Value Repitition of Three Words Three 3 Recalls Socks Yes, After Cueing (Wear) 1 Recalls Blue Yes, After Cueing (Color) 1 Recalls Bed Yes, After Cueing 1 Year Correct 3 Month Accurate Within 5 Days 2 Day Correct 1 Total [address] Ass[address] Mental St[address] No Notes: Pt is aphasic and has difficult the word finding but is able to point to items when given choices. OT Short Term Goals Short Term Goals Time Frame: Nov 13, 2022 Eatin Oral hygiene: 2 Toileting hygiene: 3 Shower/bathe self: 3 Upper body dressin Lower body dressin Putting on/taking off footwear: 5 OT Salvage Grinder Goals Jail Goals Time Frame: Nov 22, 2022 Acute change in mental status: 1 Inattention: 2 Disorganized thinkin Altered level of consciousness: 0 Eating (QC): 3 Oral Hygiene (QC): 3 Toileting Hygiene (QC): 5 Shower/Bathe Self (QC): 5 Upper Body Dressing (QC): 5 Lower Body Dressing (QC): 5 On/Off Footwear (QC): 5 Additional Goals: 1-Demonstrate ADL Tasks, 2-Verbalize Understanding, 3-ImproveStrength/Michael 1=Demonstrate adherence to instructed precautions during ADL tasks. 2=Patient will verbalize/demonstrate understanding of assistive devices/modifications for ADL. 3=Patient will improve strength/tolerance for activity to enable patient to perform ADL's. OT Education/Plan Problem List/Assessment Assessment: Decreased Activ Tolerance, Impaired Self-Care Skills Discharge Recommendations Plan/Recommendations: Continue POC Treatment Plan/Plan of Care Patient would benefit from OT for education, treatment and training to promote independence in ADL's, mobility, safety and/or upper extremity function for ADL's. Plan of Care: ADL Retraining, Caregiver Training, Cognitive Retraining, Functional Mobility, Group Exercise/Act as Ind, UE Funct Exercise/Act, UE Neuro mus Re-Ed/Coord, Visual/Perceptual Retrain Treatment Duration: Nov 22, 2022 Frequency: At least 5 of 7 days/Wk (IRF) Estimated Hrs Per Day: 1.5 hours per day Rehab Potential: Guarded Time Start Time: 07:15 Stop Time: 08:45 DATE: Nov 18, 2022 Total Time Billed (hr/min): 90 Billed Treatment Time 1 visit-ADL 6 (90 min) GARRETT HOLDER Nov 18, 2022 08:59
[2022-11-18] MEDS: ASPIRIN E.C. 81 MG (ECOTRIN) TAB PO SCH (09:03)
[2022-11-18] MEDS: METHOCARBAMOL 500 MG (ROBAXIN) TABLET PO SCH ×2 (09:03→21:53)
[2022-11-18] MEDS: SENNA W/DOCUSATE (SENOKOT S) TABLET PO SCH ×4 (09:04→21:54)
[2022-11-18] MEDS: DICLOFENAC 1% GEL 100 GM (VOLTAREN) TUBE TOP SCH ×4 (09:04→21:54)
[2022-11-18] MEDS: SALINE NASAL SPRAY (OCEAN) 45 ML BTL SCH ×4 (09:13→21:54)
[2022-11-18] MEDS: DOCUSATE SODIUM 100 MG (COLACE) CAP PO SCH ×2 (09:27→21:53)
[2022-11-18] MEDS: polyethylene glycoL POWDER 17 GM (MIRALAX) PACK PO SCH ×2 (09:27→21:54)
--- NOTE | 2022-11-18 12:03 | Physical Therapy Daily Note ---
PT Daily Note-Current Subjective Pt sitting in recliner upon arrival. Pt's daughter is present. Pt agrees to PT for Family Training and QC scoring items. Pain Location: No Pain Reported Section J - Health Conditions 1. Rarely or not at all 2. Occasionally 3. Frequently 4. Almost constantly 8. Unable to answer Pain Effect on Sleep: 8 Pain Interference with Therapy: 1 Pain Interference w/Day-to-Day: 1 Mental Status Patient Orientation: Person, Place Transfers SCALE: Activities may be completed with or without assistive devices. 9-Udjgyocfet-gwdgxrv completes the activity by him/herself with no assistance from a helper. 5-Set-up or Clean-up Assistance-helper sets up or cleans up; patient completes activity. [place] assists only prior to or following the activity. 4-Supervision or Touching Assistance-helper provides verbal cues and/or touching/steadying and/or contact guard assistance as patient completes activity. Assistance may be provided throughout the activity or intermittently. 3-Partial/Moderate Assistance-helper does LESS THAN HALF the effort. [place] lifts, holds or supports trunk or limbs, but provides less than half the effort. 2-Substantial/Maximal Assistance-helper does MORE THAN HALF the effort. [place] lifts or holds trunk or limbs and provides more than half the effort. 4-Qengupsrg-bsyith does ALL the effort. Patient does none of the effort to complete the activity. Or, the assistance of 2 or more helpers is required for the patient to complete the activity. If activity was not attempted, code reason: 7-Patient Refused. 9-Not Applicable-not attempted and the patient did not perform the activity before the current illness, exacerbation or injury. 10-Not Attempted due to Environmental Limitations-(lack of equipment, weather restraints, etc.). 88-Not Attempted due to Medical Conditions or Safety Concerns. Roll Left & Right (QC): 5 Sit to Lying (QC): 5 Lying to Sitting/Side of Bed(Q: 4 Sit to Stand (QC): 4 Chair/Hvm-gx-Eocjj Xfer(QC): 4 Toilet Transfer (QC): 4 Car Transfer (QC): 4 VC given due to low vision for sequencing and explanation of task. Weight Bearing Full Weight Bearing Full Weight Bearing Gait Training Does the Patient Walk?: Yes Distance: 150' x2 Walk 10 feet (QC): 4 Walk 50 ft with 2 Turns(QC): 4 Walk 150 ft (QC): 4 Walking 10ft/uneven surface-QC: 4 Gait Persons Needed: 1 Gait Assistive Device: Handheld Assist Pt ambulates w/HAND CARVER instead of FWW and both pt & EXTENSION COURSE COORDINATOR feels more comfortable about how pt moves. Daughter also tries HAND CARVER & feels comfortable. Wheelchair Training Does the Pt Use a Wheelchair?: No Stair Training #of Steps: 4 1 Step (curb) (QC): 4 4 Steps (QC): 4 12 Steps (QC): 88 Stairs: Pattern: Step to VC for sequencing due to low vision Balance Picking up an Object (QC): 88 Special Test Comments Pt is not able to complete standing nor sitting due to not being able to see what he is picking up w or w/o business continuity manager. Treatments Pt completes QC scoring items listed above as well as practices HAND CARVER amb. and car transfers/sit to stands that are daughter led like they will be at home. Both pt and daughter as well as EXTENSION COURSE COORDINATOR feel comfortable with transfers and amb. Pt returns to room to rest in recliner w/all needs met, call light in hand. Assessment Current Status: Good Progress Pt janette. tx well. PT Senior Care Goals Senior Care Goals PT Sound System Installer Goals Time Frame: Dec 07, 2022 Roll Left & Right (QC): 6 Sit to Lying (QC): 6 Lying-Sitting on Side/Bed(QC): 6 Sit to Stand (QC): 4 (SBA for safety) Chair/Txg-ds-Plbjk Xfer(QC): 4 (SBA) Toilet Transfer (QC): 4 (SBA for safety) Car Transfer (QC): 4 (SBA for safety) Does the Patient Walk: Yes Walk 10 feet (QC): 4 (SBA for safety due to ataxia) Walk 50ft with 2 Turns (QC): 4 (SBA due to ataxia) Walk 150 ft (QC): 4 (SBA for safety due to ataxia) Walking 10ft on Uneven Surface: 4 (SBA for safety due to ataxia) 1 Step (curb) (QC): 4 (CGA for safety) 4 Steps (QC): 4 (CGA for safety) 12 Steps (QC): 4 (CGA for safety) Picking up an Object (QC): 1 (due to balance deficits) Does the Pt use WC or Scooter?: No Wheel 50 feet with 2 turns (QC: 3 Type: Manual Wheel 150 feet: 3 Type: Manual PT Plan Treatment/Plan Treatment Plan: Continue Plan of Care Treatment Plan: Bed Mobility, Concurrent Therapy, Education, Functional Activity Michael, Functional Strength, Group Therapy, Gait, Safety, Therapeutic Exercise, Transfers Treatment Duration: Dec 07, 2022 Frequency: At least 5 of 7 days/Wk (IRF) Estimated Hrs Per Day: 1.5 hours per day Patient and/or Family Agrees t: Yes Safety Risks/Education Patient Education: Gait Training, Transfer Techniques Teaching Recipient: Patient, Family Teaching Methods: Discussion Response to Teaching: Verbalize Understanding Time Time In: 1000 Time Out: 1100 DATE: Nov 18, 2022 Total Billed Treatment Time: 60 Total Billed Treatment 1, FA x2 (30m) & GT x2 (30m) FABRIZIO RANGEL EXTENSION COURSE COORDINATOR Nov 18, 2022 12:03
--- NOTE | 2022-11-18 12:57 | Speech Therapy Daily Note ---
Speech Daily Progress Note Subjective Date Seen by Provider: Nov 18, 2022 Time Seen by Provider: 13:45 The patient was seated upright in his recliner, awake and alert, upon entrance to his room by the clinician. The patient greeted the clinician appropriately and was agreeable to participation in the cognitive linguistic and dysphagia treatment session. The patient's daughter was present, who remained at bedside throughout the treatment session. Objective As the patient is scheduled to discharge on the subsequent treatment date, the clinician discussed safe swallowing precautions, the patient's current diet consistency, s/s of suspected aspiration, and modes to encourage verbal communication with the patient and the patient's daughter. The patient is receiving a SB6 diet consistency with thin liquids. The clinician encouraged finger food consistency, as the patient is more likely to self feed with improved ease secondary to his present tremor. S/s of suspected aspiration were discussed in detail, as well as, swallowing precautions. At this time, the patient is having medication crushed and placed in puree. The clinician encouraged the patient to attempt smaller medication one at a time (if able without the s/s of suspected aspiration displayed) and continue to crush larger medication if approved by a pharmacist. The patient was encouraged to continue frequent verbal interaction with his daughter and others, attempting conversation initiation. Additionally, he was recommended to name items in his environment to word towards improved word finding skills and abilities. Assessment Assessment Current Status: Fair Progress Treatment Plan Discontinue ST Speech Short Term Goals Short Term Goals Short Term Goals 1. The patient will demonstrate safe swallowing strategies with 80% accuracy, independently. 2. The patient will display 85% accuracy with confrontational naming of familiar items. Time Frame-STG: One Week. Speech Set O Type Operator Goals Long-Term Goals 1. The patient will tolerate the least restrictive diet consistency without s/s of suspected aspiration. 1. The patient will demonstrate increased cognitive linguistic skills for safe discharge to the least restrictive environment. Time Frame: Two Weeks. Speech-Plan Treatment Plan Speech Therapy Treatment Plan: Discontinue ST Treatment Duration: Nov 06, 2022 Frequency: Modified Program (IRF) Estimated Hrs Per Day: .5 hour per day Rehab Potential: Guarded Safety Risks/Education Teaching Recipient: Patient, Family Teaching Methods: Handout, Discussion Response to Teaching: Verbalize Understanding, Reinforcement Needed Education Topics Provided: Recommendations, Swallowing Strategies, Plan of Care Time Speech Therapy Time In: 13:45 Speech Therapy Time Out: 14:15 DATE: Nov 18, 2022 Total Billed Time: 30 Billed Treatment Time 1, SLTRUPTI, RIED FALK Nov 18, 2022 12:57
--- NOTE | 2022-11-18 14:10 | Physical Therapy Daily Note ---
PT Daily Note-Current Subjective Pt sitting in recliner w/daughter present upon arrival. Pt has not eaten much for lunch. Daughter's only question was about swallowing. EDGE BRUSHER gave basic answer but referred to ST. ST will see pt for tx in a while so question will be addressed. Pain Location: No Pain Reported Section J - Health Conditions 1. Rarely or not at all 2. Occasionally 3. Frequently 4. Almost constantly 8. Unable to answer Pain Effect on Sleep: 8 Pain Interference with Therapy: 1 Pain Interference w/Day-to-Day: 1 Mental Status Patient Orientation: Person, Place, Time, Situation Transfers SCALE: Activities may be completed with or without assistive devices. 9-Sgxvuzsodk-ojofejx completes the activity by him/herself with no assistance from a helper. 5-Set-up or Clean-up Assistance-helper sets up or cleans up; patient completes activity. [place] assists only prior to or following the activity. 4-Supervision or Touching Assistance-helper provides verbal cues and/or touching/steadying and/or contact guard assistance as patient completes act ivity. Assistance may be provided throughout the activity or intermittently. 3-Partial/Moderate Assistance-helper does LESS THAN HALF the effort. [place] lifts, holds or supports trunk or limbs, but provides less than half the effort. 2-Substantial/Maximal Assistance-helper does MORE THAN HALF the effort. [place] lifts or holds trunk or limbs and provides more than half the effort. 3-Eyzmlcxcn-ibjjnu does ALL the effort. Patient does none of the effort to complete the activity. Or, the assistance of 2 or more helpers is required for the patient to complete the activity. If activity was not attempted, code reason: 7-Patient Refused. 9-Not Applicable-not attempted and the patient did not perform the activity before the current illness, exacerbation or injury. 10-Not Attempted due to Environmental Limitations-(lack of equipment, weather restraints, etc.). 88-Not Attempted due to Medical Conditions or Safety Concerns. Weight Bearing Full Weight Bearing Full Weight Bearing Treatments Pt sitting in recliner after lunch. Pt not daughter report have questions other than swallowing question for ST. Nurse is present and all needs met, call light in hand. Pt has all AE or arrangements made to receive what is needed. Pt is ready to d/c tomorrow. Assessment Current Status: Good Progress Pt's low vision is pt's main limitation. PT Alf Goals Alf Goals PT Alf Goals Time Frame: Dec 07, 2022 Roll Left & Right (QC): 6 Sit to Lying (QC): 6 Lying-Sitting on Side/Bed(QC): 6 Sit to Stand (QC): 4 (SBA for safety) Chair/Bbt-ji-Vwhhn Xfer(QC): 4 (SBA) Toilet Transfer (QC): 4 (SBA for safety) Car Transfer (QC): 4 (SBA for safety) Does the Patient Walk: Yes Walk 10 feet (QC): 4 (SBA for safety due to ataxia) Walk 50ft with 2 Turns (QC): 4 (SBA due to ataxia) Walk 150 ft (QC): 4 (SBA for safety due to ataxia) Walking 10ft on Uneven Surface: 4 (SBA for safety due to ataxia) 1 Step (curb) (QC): 4 (CGA for safety) 4 Steps (QC): 4 (CGA for safety) 12 Steps (QC): 4 (CGA for safety) Picking up an Object (QC): 1 (due to balance deficits) Does the Pt use WC or Scooter?: No Wheel 50 feet with 2 turns (QC: 3 Type: Manual Wheel 150 feet: 3 Type: Manual PT Plan Problem List Problem List: Safety Treatment/Plan Treatment Plan: Continue Plan of Care Treatment Plan: Bed Mobility, Concurrent Therapy, Education, Functional Activity Michael, Functional Strength, Group Therapy, Gait, Safety, Therapeutic Exercise, Transfers Treatment Duration: Dec 07, 2022 Frequency: At least 5 of 7 days/Wk (IRF) Estimated Hrs Per Day: 1.5 hours per day Patient and/or Family Agrees t: Yes Time Time In: 1300 Time Out: 1315 DATE: Nov 18, 2022 Total Billed Treatment Time: 15 Total Billed Treatment 1, FA (15m) FABRIZIO RANGEL PTA Nov 18, 2022 14:10
--- NOTE | 2022-11-18 15:11 | Therapy Team Discharge Summary ---
Therapy Discharge Summary Discharge Recommendations Date of Discharge Physical Therapy Roll Left to Right (QC): 5 Sit to Lying (QC): 5 Lying to Sitting/Side of Bed(Q: 4 Sit to Stand (QC): 4 Chair/Ehn-od-Llnin Xfer(QC): 4 Toilet Transfer (QC): 4 Car Transfer (QC): 4 Does the Patient Walk: Yes Mode of Locomotion: Walk Anticipated Mode of Locomotion: Walk Walk 10 feet (QC): 4 Walk 50 ft with 2 Turns(QC): 4 Walk 150 ft (QC): 4 Walking 10ft on uneven surface: 4 Distance: 150' Gait Assistive Device: Handheld Assist Does the Pt Use a Wheelchair: No Wheel 50 ft with 2 turns (QC): 88 Wheel 150 ft (QC): 88 Type of Wheelchair: Manual #of Steps: 4 1 Step (curb) (QC): 4 4 Steps (QC): 4 12 Steps (QC): 88 Balance Sitting Static: Fair Balance Sitting Dynamic: Fair Balance-Standing Static: Fair (fair -) Picking up an Object (QC): 88 Occupational Therapy Decreased Activ Tolerance, Impaired Self-Care Skills Eating (QC): 1 Oral Hygiene (QC): 2 Shower/Bathe Self (QC): 4 Upper Body Dressing (QC): 4 Lower Body Dressing (QC): 4 On/Off Footwear (QC): 4 Toileting Hygiene (QC): 4 Speech-Language Pathology The patient displayed expressive aphasia and oropharyngeal dysphagia upon admission to the acute rehabilitation unit. The patient was able to meet his speech language pathology goals throughout his time and displayed an excellent support system at home. PT Retirement Goals Head Turning Machine Operator Goals PT Retirement Goals Time Frame: Dec 07, 2022 Roll Left to Right (QC): 6 Sit to Lying (QC): 6 Lying-Sitting on Side/Bed(QC): 6 Sit to Stand (QC): 4 (SBA for safety) Chair/Wef-vv-Hujzm Xfer(QC): 4 (SBA) Toilet/Commode Transfer (QC): 4 (SBA for safety) Car Transfer (QC): 4 (SBA for safety) Does the Patient Walk: Yes Walk 10 feet (QC): 4 (SBA for safety due to ataxia) Walk 10ft-Uneven Surface(QC): 4 (SBA for safety due to ataxia) Walk 50ft with 2 Turns (QC): 4 (SBA due to ataxia) Walk 150 ft (QC): 4 (SBA for safety due to ataxia) Does the Pt use WC or Scooter?: No Wheel 50 feet with 2 turns (QC: 3 Type: Manual Wheel 150 feet: 3 Type: Manual 1 Step (curb) (QC): 4 (CGA for safety) 4 Steps (QC): 4 (CGA for safety) 12 Steps (QC): 4 (CGA for safety) Picking up an Object (QC): 1 (due to balance deficits) OT Head Turning Machine Operator Goals Retirement Goals Time Frame: Nov 22, 2022 Acute change in mental status: 1 Inattention: 2 Disorganized thinkin Altered level of consciousness: 0 Eating (QC): 3 Oral Hygiene (QC): 3 Toileting Hygiene (QC): 5 Shower/Bathe Self (QC): 5 Upper Body Dressing (QC): 5 Lower Body Dressing (QC): 5 On/Off Footwear (QC): 5 Additional Goals: 1-Demonstrate ADL Tasks, 2-Verbalize Understanding, 3- ImproveStrength/Michael 1=Demonstrate adherence to instructed precautions during ADL tasks. 2=Patient will verbalize/demonstrate understanding of assistive devices/modifications for ADL. 3=Patient will improve strength/tolerance for activity to enable patient to perform ADL's. Speech Retirement Goals Head Turning Machine Operator Goals 1. The patient will tolerate the least restrictive diet consistency without s/s of suspected aspiration. MET 1. The patient will demonstrate increased cognitive linguistic skills for safe discharge to the least restrictive environment. MET Time Frame: Two Weeks. REID SHARMA Nov 18, 2022 15:11
[2022-11-18 20:30] VITALS: BP 144/76
[2022-11-19] MEDS ORDERED: ATOR80TA76 PO (05:26)
[2022-11-19] MEDS ORDERED: FERR324T22 PO (05:26)
[2022-11-19] MEDS ORDERED: ASPI-1238 PO (05:26)
[2022-11-19] MEDS ORDERED: CARV12.53 PO (05:26)
[2022-11-19] MEDS ORDERED: SENN-145 PO (05:26)
[2022-11-19] MEDS ORDERED: HYDR-3922 PO (05:26)
[2022-11-19] MEDS ORDERED: TRM50T PO (05:26)
[2022-11-19] MEDS ORDERED: METH-731 PO (05:26)
[2022-11-19] MEDS ORDERED: DICL100G13 TOP (05:26)
--- NOTE | 2022-11-19 05:28 | Discharge Summary ---
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 intake 11/08/2022: Supportive care Monitor closely 11/09/2022: Doing well Heating pad for back pain rather than pain medication that could confuse him 11/10/2022: Supportive care 11/11/2022: Oncology appt at 11/12/2022: Much improved 11/13/2022: Supportive care Monitor closely 11/14/2022: Monitor closely 11/15/2022: Much improved status 11/16/2022: Supportive care 11/17/2022: Discharge home Friday11/18/2021: DC planned (1) Subdural hematoma Discharge Summary Discharge Physical Examination Allergies: Coded Allergies: No Known Drug Allergies (Unverified , 11/05/22) Vitals & I&Os Vital Signs Date Time Temp Pulse Resp B/P (MAP) Pulse Ox O2 Delivery O2 Flow Rate FiO2 11/19/22 10:05 63 121/74 (90) 11/19/22 09:30 Room Air 11/19/22 08:00 36.3 14 96 General Appearance: Alert, Oriented X3, Cooperative Respiratory: Clear to Auscultation Cardiovascular: Regular Rate Psych/Mental Status: Mental Status NL Hospital Course Was the Problem List Reviewed?: Yes Pt had an uneventful hospital course for 15 days after he was admitted from after a subdural hemorrhage. 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 Overall he was able to participate in therapy although slowly. He regained enough function for his daughter to take care of him at home. He will have an oncology visit at as scheduled. He will be supported by home health. Labs (last 24 hrs) Laboratory Tests 11/06/22 05:29: White Blood Count 11.1H, Red Blood Count 3.61L, Hemoglobin 12.0L, Hematocrit 35L , Mean Corpuscular Volume 96, Mean Corpuscular Hemoglobin 33, Mean Corpuscular Hemoglobin Concent 35, Red Cell Distribution Width 13.2, Platelet Count 371, M tarik Platelet Volume 10.2, Immature Granulocyte % (Auto) 2, Neutrophils (%) (Auto) 76H, Lymphocytes (%) (Auto) 8L, Monocytes (%) (Auto) 11, Eosinophils (%) (Auto) 2, Basophils (%) (Auto) 1, Neutrophils # (Auto) 8.5H, Lymphocytes # (Auto) 0.9L, Monocytes # (Auto) 1.3H, Eosinophils # (Auto) 0.2, Basophils # (Auto) 0.1, Immature Granulocyte # (Auto) 0.3H, Sodium Level 140, Potassium Level 3.3L, Chloride Level 107, Carbon Dioxide Level 21, Anion Gap 12, Blood Urea Nitrogen 18, Creatinine 0.78, Estimat Glomerular Filtration Rate 90, BUN/Creatinine Ratio 23, Glucose Level 96, Calcium Level 9.1, Corrected Calcium 9.6, Total Bilirubin 0.5, Aspartate Amino Transf (AST/SGOT) 58H, Alanine Aminotransferase (ALT/SGPT) 68H, Alkaline Phosphatase 107, Total Protein 6.7, Albumin 3.4 11/11/22 07:05: White Blood Count 9.5, Red Blood Count 3.48L, Hemoglobin 11.5L, Hematocrit 34L, Mean Corpuscular Volume 98, Mean Corpuscular Hemoglobin 33, Mean Corpuscular Hemoglobin Concent 34, Red Cell Distribution Width 13.6, Platelet Count 315, Mean Platelet Volume 10.0, Immature Granulocyte % (Auto) 1, Neutrophils (%) (Auto) 74, Lymphocytes (%) (Auto) 8L, Monocytes (%) (Auto) 12, Eosinophils (%) (Auto) 4, Basophils (%) (Auto) 1, Neutrophils # (Auto) 7.0, Lymphocytes # (Auto) 0.8L, Monocytes # (Auto) 1.1H, Eosinophils # (Auto) 0.4H, Basophils # (Auto) 0.1, Immature Granulocyte # (Auto) 0.1, Sodium Level 139, Potassium Level 4.2, Chloride Level 106, Carbon Dioxide Level 25, Anion Gap 8, Blood Urea Nitrogen 27H, Creatinine 0.82, Estimat Glomerular Filtration Rate 88, BUN/Creatinine Ratio 33, Glucose Level 98, Calcium Level 9.0, Corrected Calcium 9.4, Total Bilirubin 0.3, Aspartate Amino Transf (AST/SGOT) 36H, Alanine Aminotransferase (ALT/SGPT) 47, Alkaline Phosphatase 105, Total Protein 6.7, Albumin 3.5 11/18/22 05:16: White Blood Count 8.5, Red Blood Count 3.90L, Hemoglobin 13.0L, Hematocrit 38L, Mean Corpuscular Volume 97, Mean Corpuscular Hemoglobin 33, Mean Corpuscular Hemoglobin Concent 34, Red Cell Distribution Width 13.5, Platelet Count 194, Mean Platelet Volume 10.6, Immature Granulocyte % (Auto) 1, Neutrophils (%) (Auto) 73, Lymphocytes (%) (Auto) 9L, Monocytes (%) (Auto) 12, Eosinophils (%) (Auto) 4, Basophils (%) (Auto) 1, Neutrophils # (Auto) 6.2, Lymphocytes # (Auto) 0.8L, Monocytes # (Auto) 1.0, Eosinophils # (Auto) 0.3, Basophils # (Auto) 0.1, Immature Granulocyte # (Auto) 0.1, Sodium Level 139, Potassium Level 4.6, Chloride Level 104, Carbon Dioxide Level 25, Anion Gap 10, Blood Urea Nitrogen 29H, Creatinine 0.97, Estimat Glomerular Filtration Rate 78, BUN/Creatinine Ratio 30, Glucose Level 96, Calcium Level 9.4, Corrected Calcium 9.6, Total Bilirubin 0.4, Aspartate Amino Transf (AST/SGOT) 29, Alanine Aminotransferase (ALT/SGPT) 32, Alkaline Phosphatase 109, Total Protein 7.0, Albumin 3.8 Pending Labs Laboratory Tests 11/06/22 05:29: White Blood Count 11.1, Red Blood Count 3.61, Hemoglobin 12.0, Hematocrit 35, Mean Corpuscular Volume 96, Mean Corpuscular Hemoglobin 33, Mean Corpuscular Hemoglobin Concent 35, Red Cell Distribution Width 13.2, Platelet Count 371, Mean Platelet Volume 10.2, Immature Granulocyte % (Auto) 2, Neutrophils (%) (Auto) 76, Lymphocytes (%) (Auto) 8, Monocytes (%) (Auto) 11, Eosinophils (%) (Auto) 2, Basophils (%) (Auto) 1, Neutrophils # (Auto) 8.5, Lymphocytes # (Auto) 0.9, Monocytes # (Auto) 1.3, Eosinophils # (Auto) 0.2, Basophils # (Auto) 0.1, Immature Granulocyte # (Auto) 0.3, Sodium Level 140, Potassium Level 3.3, Chloride Level 107, Carbon Dioxide Level 21, Anion Gap 12, Blood Urea Nitrogen 18, Creatinine 0.78, Estimat Glomerular Filtration Rate 90, BUN/Creatinine Ratio 23, Glucose Level 96, Calcium Level 9.1, Corrected Calcium 9.6, Total Bilirubin 0.5, Aspartate Amino Transf (AST/SGOT) 58, Alanine Aminotransferase (ALT/SGPT) 68, Alkaline Phosphatase 107, Total Protein 6.7, Albumin 3.4 11/11/22 07:05: White Blood Count 9.5, Red Blood Count 3.48, Hemoglobin 11.5, Hematocrit 34, Mean Corpuscular Volume 98, Mean Corpuscular Hemoglobin 33, Mean Corpuscular Hemoglobin Concent 34, Red Cell Distribution Width 13.6, Platelet Count 315, Mean Platelet Volume 10.0, Immature Granulocyte % (Auto) 1, Neutrophils (%) (Auto) 74, Lymphocytes (%) (Auto) 8, Monocytes (%) (Auto) 12, Eosinophils (%) (Auto) 4, Basophils (%) (Auto) 1, Neutrophils # (Auto) 7.0, Lymphocytes # (Auto) 0.8, Monocytes # (Auto) 1.1, Eosinophils # (Auto) 0.4, Basophils # (Auto) 0.1, Immature Granulocyte # (Auto) 0.1, Sodium Level 139, Potassium Level 4.2, Chloride Level 106, Carbon Dioxide Level 25, Anion Gap 8, Blood Urea Nitrogen 27, Creatinine 0.82, Estimat Glomerular Filtration Rate 88, BUN/Creatinine Ratio 33, Glucose Level 98, Calcium Level 9.0, Corrected Calcium 9.4, Total Bilirubin 0.3, Aspartate Amino Transf (AST/SGOT) 36, Alanine Aminotransferase (ALT/SGPT) 47, Alkaline Phosphatase 105, Total Protein 6.7, Albumin 3.5 11/18/22 05:16: White Blood Count 8.5, Red Blood Count 3.90, Hemoglobin 13.0, Hematocrit 38, Mean Corpuscular Volume 97, Mean Corpuscular Hemoglobin 33, Mean Corpuscular Hemoglobin Concent 34, Red Cell Distribution Width 13.5, Platelet Count 194, Mean Platelet Volume 10.6, Immature Granulocyte % (Auto) 1, Neutrophils (%) (Auto) 73, Lymphocytes (%) (Auto) 9, Monocytes (%) (Auto) 12, Eosinophils (%) (Auto) 4, Basophils (%) (Auto) 1, Neutrophils # (Auto) 6.2, Lymphocytes # (Auto) 0.8, Monocytes # (Auto) 1.0, Eosinophils # (Auto) 0.3, Basophils # (Auto) 0.1, Immature Granulocyte # (Auto) 0.1, Sodium Level 139, Potassium Level 4.6, C hloride Level 104, Carbon Dioxide Level 25, Anion Gap 10, Blood Urea Nitrogen 29, Creatinine 0.97, Estimat Glomerular Filtration Rate 78, BUN/Creatinine Ratio 30, Glucose Level 96, Calcium Level 9.4, Corrected Calcium 9.6, Total Bilirubin 0.4, Aspartate Amino Transf (AST/SGOT) 29, Alanine Aminotransferase (ALT/SGPT) 32, Alkaline Phosphatase 109, Total Protein 7.0, Albumin 3.8 Discharge Home Medications: Active Scripts Active Diclofenac Sodium 1 % Gel..gram. 0 Gm TOP QID qid Tramadol HCl 50 Mg Tablet 50 Mg PO Q6H PRN Senna S Tablet (Sennosides/Docusate Sodium) 8.6 Mg-50 Mg Tablet 1 Each PO BID Methocarbamol 500 Mg Tablet 500 Mg PO BID Hydralazine HCl 10 Mg Tablet 20 Mg PO Q8H PRN TAKE 2 (10MG) TABS Ferrous Gluconate 324 Mg (37.5 Mg Iron) Tablet 324 Mg PO Q48H Carvedilol 12.5 Mg Tablet 12.5 Mg PO BID WITH MEALS Atorvastatin Calcium 80 Mg Tablet 80 Mg PO DAILY Aspirin EC (Aspirin) 81 Mg Tablet.dr 81 Mg PO DAILY Reported Multivitamin 1 Each Tablet 1 Each PO DAILY Vitamin B Complex 1 Each Tablet 1 Each PO DAILY Tylenol Arthritis (Acetaminophen) 650 Mg Tablet.er 650 Mg PO Q8H PRN Instructions to patient/family Please see electronic discharge instructions given to patient. Diagnosis/Problems Diagnosis/Problems (1) Subdural hematoma Clinical Quality Measures DVT/VTE Risk/Contraindication: Contraindications-Pharm: Other *list below* Other: opalural VIVI WHALEY DO Nov 19, 2022 05:28
--- NOTE | 2022-11-19 05:28 | D/C HH Face to Face Order ---
D/C Face to Face Orders Reconcile Patient Problems Problems Reviewed?: Yes Instructions for Patient HH Patient Instructions/FollowUp: PCP 1 week Physician to follow Patient: [facility] Discharge Diet for Home: No Restrictions Patient Problems: Subdural hematoma Patient Data-Allergies,Ht & Wt Patient Allergies: Coded Allergies: No Known Drug Allergies (Unverified , 11/05/22) Home Health Need/Face to Face Date of Face to Face: Nov 19, 2022 Clinical Findings: Generalized weakness and fatigue, Instability, Muscle weakness I have seen Pt dhlm-[id number]: Yes Discharged To: Home Diagnosis/Conditions: Subdural hematoma Patient is Homebound due to: CognItive deficits, Xander fall risk due to instabilty, Muscle weakness Homebound Status Due to the above stated illness, injury or surgical procedure (medical condition or diagnosis) and associated clinical findings, the patient is homebound because of his/her inability to leave home except with aid of a supportive device and/or person AND leaving the home requires a considerable and taxing effort or is medically contraindicated. Pt req the following assistanc: [facility] Health Nursing Orders Home Health Services Order: Nursing Services, Laboratory Inspector-Evaluate & T reat, Physical Therapy-Evaluate & Treat Certify Stmt I certify that this patient is under my care and that I, a nurse practitioner or a physician; a assistant shift supervisor working with me, had a face to face encounter that - meets the physician face to face encounter requirements with this patient as dated. VIVI WHALEY DO Nov 19, 2022 05:28
[2022-11-19] MEDS: KCL 10 MEQ TAB (MICRO K) PO SCH (07:00)
[2022-11-19] MEDS: MULTIVIT W/MINERALS TAB (THERAGRAN M) PO SCH (07:00)
[2022-11-19 08:00] VITALS: BP 98/66
--- NOTE | 2022-11-19 09:44 | Therapy Team Discharge Summary ---
Therapy Discharge Summary Discharge Recommendations Date of Discharge Physical Therapy Patient came to rehab post CVA. Upon evaluation patient performed rolling with SBA, supine to sit CGA/SBA, sit to supine mod assist, sit <-> stand and transfers min/mod assist, car transfer mod assist, ambulated 150' with a RW with min/mod assist (including 50' with at least 2 turns of 90 degrees and 10' over an uneven surface), went up and down 4 steps with mod assist. Patient has been performing bed mobility and transfer training, balance and endurance training, functional strengthening, stair training, gait training, and education. Patient has made fair progress and has met all of his long-term goals except for stairs. Patient has difficulty performing things on his own due to impaired vision. Now, patient performs rolling and sit to supine with setup, supine <-> sit CGA/SBA, sit <-> stand and transfers CGA/SBA, car transfer CGA/SBA, ambulates 150' with [place] with CGA/SBA (including 50' with at least 2 turns of 90 degrees and 10' over an uneven surface), can go up and down 4 steps with CGA/SBA, cannot grape picker an object from the floor due to visual impairments. Patient is being discharged from this facility today and will be discharged from PT at this time. Roll Left to Right (QC): 5 Sit to Lying (QC): 5 Lying to Sitting/Side of Bed(Q: 4 Sit to Stand (QC): 4 Chair/Jlv-wr-Angbl Xfer(QC): 4 Toilet Transfer (QC): 4 Car Transfer (QC): 4 Does the Patient Walk: Yes Mode of Locomotion: Walk Anticipated Mode of Locomotion: Walk Walk 10 feet (QC): 4 Walk 50 ft with 2 Turns(QC): 4 Walk 150 ft (QC): 4 Walking 10ft on uneven surface: 4 Distance: 150' Gait Assistive Device: Handheld Assist Does the Pt Use a Wheelchair: No Wheel 50 ft with 2 turns (QC): 88 Wheel 150 ft (QC): 88 Type of Wheelchair: Manual #of Steps: 4 1 Step (curb) (QC): 4 4 Steps (QC): 4 12 Steps (QC): 88 Balance Sitting Static: Fair Balance Sitting Dynamic: Fair Balance-Standing Static: Fair (fair -) Picking up an Object (QC): 88 Occupational Therapy Decreased Activ Tolerance, Impaired Self-Care Skills Eating (QC): 1 Oral Hygiene (QC): 2 Shower/Bathe Self (QC): 4 Upper Body Dressing (QC): 4 Lower Body Dressing (QC): 4 On/Off Footwear (QC): 4 Toileting Hygiene (QC): 4 PT Skilled Nursing Goals International Marketing Specialist Goals PT Skilled Nursing Goals Time Frame: Dec 07, 2022 Roll Left to Right (QC): 6 Sit to Lying (QC): 6 Lying-Sitting on Side/Bed(QC): 6 Sit to Stand (QC): 4 (SBA for safety) Chair/Sfk-gg-Whrsm Xfer(QC): 4 (SBA) Toilet/Commode Transfer (QC): 4 (SBA for safety) Car Transfer (QC): 4 (SBA for safety) Does the Patient Walk: Yes Walk 10 feet (QC): 4 (SBA for safety due to ataxia) Walk 10ft-Uneven Surface(QC): 4 (SBA for safety due to ataxia) Walk 50ft with 2 Turns (QC): 4 (SBA due to ataxia) Walk 150 ft (QC): 4 (SBA for safety due to ataxia) Does the Pt use WC or Scooter?: No Wheel 50 feet with 2 turns (QC: 3 Type: Manual Wheel 150 feet: 3 Type: Manual 1 Step (curb) (QC): 4 (CGA for safety) 4 Steps (QC): 4 (CGA for safety) 12 Steps (QC): 4 (CGA for safety) Picking up an Object (QC): 1 (due to balance deficits) OT International Marketing Specialist Goals International Marketing Specialist Goals Time Frame: Nov 22, 2022 Acute change in mental status: 1 Inattention: 2 Disorganized thinkin Altered level of consciousness: 0 Eating (QC): 3 Oral Hygiene (QC): 3 Toileting Hygiene (QC): 5 Shower/Bathe Self (QC): 5 Upper Body Dressing (QC): 5 Lower Body Dressing (QC): 5 On/Off Footwear (QC): 5 Additional Goals: 1-Demonstrate ADL Tasks, 2-Verbalize Understanding, 3- ImproveStrength/Michael 1=Demonstrate adherence to instructed precautions during ADL tasks. 2=Patient will verbalize/demonstrate understanding of assistive devices/modifications for ADL. 3=Patient will improve strength/tolerance for activity to enable patient to perform ADL's. Speech Skilled Nursing Goals Skilled Nursing Goals 1. The patient will tolerate the least restrictive diet consistency without s/s of suspected aspiration. MET 1. The patient will demonstrate increased cognitive linguistic skills for safe discharge to the least restrictive environment. MET Time Frame: Two Weeks. NO MERRILL PT Nov 19, 2022 09:44
[2022-11-19 10:00] VITALS: BP 128/78
[2022-11-19 10:05] VITALS: BP 121/74
[2022-11-19] MEDS: METHOCARBAMOL 500 MG (ROBAXIN) TABLET PO SCH (10:06)
[2022-11-19] MEDS: SENNA W/DOCUSATE (SENOKOT S) TABLET PO SCH ×2 (10:06→10:48)
[2022-11-19] MEDS: DOCUSATE SODIUM 100 MG (COLACE) CAP PO SCH (10:06)
[2022-11-19] MEDS: ASPIRIN E.C. 81 MG (ECOTRIN) TAB PO SCH (10:06)
[2022-11-19] MEDS: DICLOFENAC 1% GEL 100 GM (VOLTAREN) TUBE TOP SCH (10:07)
[2022-11-19] MEDS: SALINE NASAL SPRAY (OCEAN) 45 ML BTL SCH (10:27)
[2022-11-19] MEDS: polyethylene glycoL POWDER 17 GM (MIRALAX) PACK PO SCH (10:48)
--- NOTE | 2022-11-19 15:18 | Therapy Team Discharge Summary ---
Therapy Discharge Summary Discharge Recommendations Date of Discharge Therapy D/C Recommendations: Occupational Therapy Home Care Physical Therapy Roll Left to Right (QC): 5 Sit to Lying (QC): 5 Lying to Sitting/Side of Bed(Q: 4 Sit to Stand (QC): 4 Chair/Dal-tu-Uzjys Xfer(QC): 4 Toilet Transfer (QC): 4 Car Transfer (QC): 4 Does the Patient Walk: Yes Mode of Locomotion: Walk Anticipated Mode of Locomotion: Walk Walk 10 feet (QC): 4 Walk 50 ft with 2 Turns(QC): 4 Walk 150 ft (QC): 4 Walking 10ft on uneven surface: 4 Distance: 150' Gait Assistive Device: Handheld Assist Does the Pt Use a Wheelchair: No Wheel 50 ft with 2 turns (QC): 88 Wheel 150 ft (QC): 88 Type of Wheelchair: Manual #of Steps: 4 1 Step (curb) (QC): 4 4 Steps (QC): 4 12 Steps (QC): 88 Balance Sitting Static: Fair Balance Sitting Dynamic: Fair Balance-Standing Static: Fair (fair -) Picking up an Object (QC): 88 Occupational Therapy Pt admitted to [facility] s/p CVA. At [facility], pt was independent with ADLS and functional mobility, no AD. He had assistance with IADLs. Upon initial evaluation, pt was dependent with eating and oral care, CGA footwear, and min A UE/LE dressing, showering and toileting. OT tx focused on increasing safety and independence with ADLs and functional mobility, and increasing BUE strength and activity tolerance. Pt made functional progress towards goals, but did not attain any LTGs. OT recommends continued OT services, and a BSC and SC. Pt discharged home with family support, d/c from OT. Decreased Activ Tolerance, Impaired Self-Care Skills Eating (QC): 1 Oral Hygiene (QC): 2 Shower/Bathe Self (QC): 4 Upper Body Dressing (QC): 4 Lower Body Dressing (QC): 4 On/Off Footwear (QC): 4 Toileting Hygiene (QC): 4 PT Jail Goals Jail Goals PT Jail Goals Time Frame: Dec 07, 2022 Roll Left to Right (QC): 6 Sit to Lying (QC): 6 Lying-Sitting on Side/Bed(QC): 6 Sit to Stand (QC): 4 (SBA for safety) Chair/Byg-ec-Suceq Xfer(QC): 4 (SBA) Toilet/Commode Transfer (QC): 4 (SBA for safety) Car Transfer (QC): 4 (SBA for safety) Does the Patient Walk: Yes Walk 10 feet (QC): 4 (SBA for safety due to ataxia) Walk 10ft-Uneven Surface(QC): 4 (SBA for safety due to ataxia) Walk 50ft with 2 Turns (QC): 4 (SBA due to ataxia) Walk 150 ft (QC): 4 (SBA for safety due to ataxia) Does the Pt use WC or Scooter?: No Wheel 50 feet with 2 turns (QC: 3 Type: Manual Wheel 150 feet: 3 Type: Manual 1 Step (curb) (QC): 4 (CGA for safety) 4 Steps (QC): 4 (CGA for safety) 12 Steps (QC): 4 (CGA for safety) Picking up an Object (QC): 1 (due to balance deficits) OT Sales Lead Goals Jail Goals Time Frame: Nov 22, 2022 Acute change in mental status: 1 Inattention: 2 Disorganized thinkin Altered level of consciousness: 0 Eating (QC): 3 (not met) Oral Hygiene (QC): 3 (not met) Toileting Hygiene (QC): 5 (not met) Shower/Bathe Self (QC): 5 (not met) Upper Body Dressing (QC): 5 (not met) Lower Body Dressing (QC): 5 (not met) On/Off Footwear (QC): 5 (not met) Additional Goals: 1-Demonstrate ADL Tasks, 2-Verbalize Understanding, 3-ImproveStrength/Michael 1=Demonstrate adherence to instructed precautions during ADL tasks. 2=Patient will verbalize/demonstrate understanding of assistive devices/modifications for ADL. 3=Patient will improve strength/tolerance for activity to enable patient to perform ADL's. Speech Sales Lead Goals Sales Lead Goals 1. The patient will tolerate the least restrictive diet consistency without s/s of suspected aspiration. MET 1. The patient will demonstrate increased cognitive linguistic skills for safe discharge to the least restrictive environment. MET Time Frame: Two Weeks. DYLAN CRUZ OT Nov 19, 2022 15:18
== END 2022-11-19 15:00 | disposition home health service (06) | DRG 57 ==
PROVIDERS: ADMIT Internal Medicine; ATTEND Internal Medicine
DX: I69.293 Ataxia following other nontraumatic intracranial hemorrhage (principal); C34.11 Malignant neoplasm of upper lobe, right bronchus or lung; I69.220 Aphasia following other nontraumatic intracranial hemorrhage; I69.393 Ataxia following cerebral infarction; R27.8 Other lack of coordination; R41.82 Altered mental status, unspecified; G25.0 Essential tremor; R13.10 Dysphagia, unspecified; R59.0 Localized enlarged lymph nodes; I65.02 Occlusion and stenosis of left vertebral artery; I10 Essential (primary) hypertension; E78.00 Pure hypercholesterolemia, unspecified; I25.10 Atherosclerotic heart disease of native coronary artery without angina pectoris; I73.9 Peripheral vascular disease, unspecified; F17.210 Nicotine dependence, cigarettes, uncomplicated; M54.50 Low back pain, unspecified; F03.90 Unspecified dementia, unspecified severity, without behavioral disturbance, psychotic disturbance, mood disturbance, and anxiety; E87.6 Hypokalemia; D64.9 Anemia, unspecified; H54.3 Unqualified visual loss, both eyes; H91.10 Presbycusis, unspecified ear; F41.9 Anxiety disorder, unspecified; F32.A Depression, unspecified; Z95.2 Presence of prosthetic heart valve; Z95.820 Peripheral vascular angioplasty status with implants and grafts; Z79.82 Long term (current) use of aspirin
CPT/HCPCS: 36415; 80053; 85025

== ENCOUNTER 2022-12-02 23:36 | Emergency (ER) | payer MEDICARE ==
[~2022-12-02] VITALS: Ht 179.7 cm; Wt 54.0 kg
[2022-12-02 23:36] VITALS: BP 109/98
[~2022-12-02 23:36] MED LIST: ACET-2650 PO; ASPI-1238 PO; ATOR80TA76 PO; CARV12.53 PO; DICL100G13 TOP; FERR324T22 PO; HYDR-3922 PO; METH-731 PO; METO50TA15 PO; MULT-1136 PO; SENN-145 PO; TRM50T PO; VITA1TAB17 PO
--- NOTE | 2022-12-02 23:50 | ED Lower Extremity ---
General Stated Complaint: R KNEE PAIN History of Present Illness Date Seen by Provider: Dec 02, 2022 Time Seen by Provider: 23:45 Initial Comments 82-year-old male with PMH of CAD/lung cancer/CVA/HTN/TAVR, is here with complaints of posterior knee pain and posterior lower thigh pain which began earlier today. Patient's home health care nurse was concerned that he might be developing a leg clot and patient is coming to the ER to rule out a blood clot. Denies lower extremity swelling, trauma, falls, injury, redness, fever, s hortness of breath, chest pain, palpitations. Allergies and Home Medications Allergies Coded Allergies: No Known Drug Allergies (Unverified , 11/05/22) Patient Home Medication List Home Medication List Reviewed: Yes Acetaminophen (Tylenol Arthritis) 650 Mg Tablet.er, 650 MG PO Q8H PRN for PAIN- MILD (1-4), (Reported) Entered as Reported by: BERNARDO HOLLEY on 11/05/22 1334 Aspirin (Aspirin EC) 81 Mg Tablet.dr, 81 MG PO DAILY Prescribed by: VIVI WHALEY on 11/19/22525 Atorvastatin Calcium (Atorvastatin Calcium) 80 Mg Tablet, 80 MG PO DAILY Prescribed by: VIVI WHALEY on 11/19/22525 Carvedilol (Carvedilol) 12.5 Mg Tablet, 12.5 MG PO BID WITH MEALS Prescribed by: VIVI WHALEY on 11/19/22525 Diclofenac Sodium (Diclofenac Sodium) 1 % Gel..gram., 0 GM TOP QID Prescribed by: VIVI WHALEY on 11/19/22525 Ferrous Gluconate (Ferrous Gluconate) 324 Mg (37.5 Mg Iron) Tablet, 324 MG PO Q48H Prescribed by: VIVI WHALEY on 11/19/22525 Hydralazine HCl (Hydralazine HCl) 10 Mg Tablet, 20 MG PO Q8H PRN for SBP >160 Prescribed by: VIVI WHALEY on 11/19/22525 Methocarbamol (Methocarbamol) 500 Mg Tablet, 500 MG PO BID Prescribed by: VIVI WHALEY on 11/19/22525 Multivitamin (Multivitamin) 1 Each Tablet, 1 EACH PO DAILY, (Reported) Entered as Reported by: BERNARDO HOLLEY on 11/05/22 1334 Sennosides/Docusate Sodium (Senna S Tablet) 8.6 Mg-50 Mg Tablet, 1 EACH PO BID Prescribed by: VIVI WHALEY on 11/19/22 0526 Tramadol HCl (Tramadol HCl) 50 Mg Tablet, 50 MG PO Q6H PRN for PAIN-MODERATE (5- 7) Prescribed by: VIVI WHALEY on 11/19/22 0527 Vitamin B Complex (Vitamin B Complex) 1 Each Tablet, 1 EACH PO DAILY, (Reported) Entered as Reported by: BERNARDO HOLLEY on 11/05/22 1334 Review of Systems Constitutional: no symptoms reported EENTM: no symptoms reported Respiratory: no symptoms reported Cardiovascular: no symptoms reported Gastrointestinal: no symptoms reported Genitourinary: no symptoms reported Musculoskeletal: muscle pain Skin: no symptoms reported Psychiatric/Neurological: No Symptoms Reported Past Pmjlucx-Gfumxh-Dflsxg Hx Past Medical History Surgery/Hospitalization HX: DIFFICULT TO OBTAIN INFORMATION. PATIENT IS A POOR HISTORIAN. CHRONIC LOW BACK PAIN, SMOKER, CAD, ESSENTIAL TREMOR, PAD, HTN, HIGH CHOLESTEROL, ACUTE ON CHRONIC SUBDURAL HEMORRHAGE, CVA, LUNG MASS. Coronary Artery Disease, High Cholesterol, Hypertension, Peripheral Vascular Dementia, Stroke Loss of Vision: Bilateral Hearing Impairment: Hard of Hearing Physical Exam Vital Signs Vital Signs - First Documented 12/02/22 23:36 Temp 36.5 Pulse 104 Resp 18 B/P (MAP) 109/98 (102) Pulse Ox 95 O2 Delivery Room Air Capillary Refill : Height, Weight, BMI Height: '" Weight: lbs. oz. kg; 18.98 BMI Method: General Appearance: WD/WN, no apparent distress HEENT: PERRL/EOMI Neck: full range of motion Cardiovascular: normal peripheral pulses, regular rate, rhythm, no edema Respiratory: chest non-tender, lungs clear, normal breath sounds, no respiratory distress Gastrointestinal: non tender, soft Hips: right hip normal inspection Legs: right leg normal inspection, right leg normal range of motion, right leg no evidence of injury, right leg soft tissue tenderness (Posterior knee tenderness within the popliteal fossa and extending into the lower one third of the thigh posteriorly. No redness, no edema, not warm to touch. Homans test negative) Knees: right knee non-tender, right knee normal inspection, right knee normal range of motion, right knee no evidence of injury, right knee soft tissue tenderness (Posterior knee pain) Ankles: right ankle non-tender, right ankle normal inspection Feet: right foot non-tender, right foot normal inspection Neurologic/Tendon: normal sensation, normal motor functions Neurologic/Psychiatric: alert, normal mood/affect, oriented x 3 Skin: normal color Progress/Results/Core Measures Results/Orders Lab Results Laboratory Tests Test 12/02/22 23:55 Range/Units White Blood Count 6.4 4.3-11.0 10^3/uL Red Blood Count 3.47 L 4.30-5.52 10^6/uL Hemoglobin 11.3 L 13.3-17.7 g/dL Hematocrit 33 L 40-54 % Mean Corpuscular Volume 95 80-99 fL Mean Corpuscular Hemoglobin 33 25-34 pg Mean Corpuscular Hemoglobin Concent 34 32-36 g/dL Red Cell Distribution Width 13.8 10.0-14.5 % Platelet Count 113 L 130-400 10^3/uL Mean Platelet Volume 9.8 9.0-12.2 fL Immature Granulocyte % (Auto) 1 % Neutrophils (%) (Auto) 72 42-75 % Lymphocytes (%) (Auto) 11 L 12-44 % Monocytes (%) (Auto) 11 0-12 % Eosinophils (%) (Auto) 4 0-10 % Basophils (%) (Auto) 1 0-10 % Neutrophils # (Auto) 4.6 1.8-7.8 10^3/uL Lymphocytes # (Auto) 0.7 L 1.0-4.0 10^3/uL Monocytes # (Auto) 0.7 0.0-1.0 10^3/uL Eosinophils # (Auto) 0.3 0.0-0.3 10^3/uL Basophils # (Auto) 0.1 0.0-0.1 10^3/uL Immature Granulocyte # (Auto) 0.0 0.0-0.1 10^3/uL Prothrombin Time 15.0 H 12.2-14.7 SEC INR Comment 1.1 0.8-1.4 Activated Partial Thromboplast Time 37 H 24-35 SEC D-Dimer 13.81 H 0.00-0.49 UG/ML Sodium Level 136 135-145 MMOL/L Potassium Level 4.4 3.6-5.0 MMOL/L Chloride Level 101 98-107 MMOL/L Carbon Dioxide Level 27 21-32 MMOL/L Anion Gap 8 5-14 MMOL/L Blood Urea Nitrogen 19 H 7-18 MG/DL Creatinine 0.96 0.60-1.30 MG/DL Estimat Glomerular Filtration Rate 79 BUN/Creatinine Ratio 20 Glucose Level 107 H 70-105 MG/DL Calcium Level 9.3 8.5-10.1 MG/DL Corrected Calcium 9.5 8.5-10.1 MG/DL Total Bilirubin 0.3 0.1-1.0 MG/DL Aspartate Amino Transf (AST/SGOT) 20 5-34 U/L Alanine Aminotransferase (ALT/SGPT) 16 0-55 U/L Alkaline Phosphatase 147 H 40-136 U/L Troponin I < 0.30 <0.30 NG/ML Total Protein 6.5 6.4-8.2 GM/DL Albumin 3.7 3.2-4.5 GM/DL My Orders Orders - SAHRA BRAND MD Cbc With Automated Diff (12/02/22 23:49) Comprehensive Metabolic Panel (12/02/22 23:49) Fibrin Degradation Products (12/02/22 23:49) Protime With Inr (12/02/22 23:49) Partial Thromboplastin Time (12/02/22 23:49) Troponin I Fs (12/02/22 23:49) Vital Signs/I&O 12/02/22 23:36 Temp 36.5 Pulse 104 Resp 18 B/P (MAP) 109/98 (102) Pulse Ox 95 O2 Delivery Room Air Progress Progress Note : Progress Note 1. DVT SUSPICION: - D-dimer: 13.81 - Coag panel - CBC/ CMP: unremarkable - We do not have ultrasound availability at this time. Gave one dose of Lovenox 60mg s.c., in the ER and ordered Doppler ultrasound for the morning. - Gave pt the option of being admitted to [facility] but pt's daughter refused stating she would rather come back in the morning. -The patient was seen in the ED, and treated appropriately to presentation at a specific point in time. Patient is informed that there is a possibility that disease and illness can evolve and change in acuity rapidly or slowly after patient is discharged from the ER. Precautionary advice given to the patient for immediate return to ER if symptoms worsen or do not resolve, and to seek emergency care sooner rather than later. Pt also advised on the importance of PCP follow up and compliance with management and follow up plan with PCP and/or specialist, as this is part of the management plan. Pt verbally expressed understanding. Departure Impression Primary Impression: Elevated d-dimer Additional Impression: Suspected DVT (deep vein thrombosis) Disposition: HOME, SELF-CARE Condition: Stable Departure-Patient Inst. Referrals: KAJAL AYOUB MD (PCP/Family) Primary Care Physician Patient Instructions: Deep Vein Thrombosis (Blood Clots in the Legs) (DC) Add. Discharge Instructions: - We do not have ultrasound availability at this time. Gave one dose of Lovenox 60mg s.c., in the ER and ordered Doppler ultrasound for the morning. -Advised to return to ER immediately if patient develops shortness of breath, c hest pain, palpitations, or symptoms worsen. SAHRA BRAND MD Dec 02, 2022 23:50
[2022-12-02 23:59] LABS: BASOPHILS # (AUTO) 0.1 10^3/uL (0.0-0.1); BASOPHILS % (AUTO) 1 % (0-10); EOSINOPHILS # (AUTO) 0.3 10^3/uL (0.0-0.3); EOSINOPHILS % (AUTO) 4 % (0-10); HEMATOCRIT 33 % (40-54); HEMOGLOBIN 11.3 g/dL (13.3-17.7); LYMPHOCYTES # (AUTO) 0.7 10^3/uL (1.0-4.0); LYMPHOCYTES % (AUTO) 11 % (12-44); MEAN CORPUSCULAR HEMOGLOBIN 33 pg (25-34); MEAN CORPUSCULAR HGB CONC 34 g/dL (32-36); MEAN CORPUSCULAR VOLUME 95 fL (80-99); MEAN PLATELET VOLUME 9.8 fL (9.0-12.2); MONOCYTES # (AUTO) 0.7 10^3/uL (0.0-1.0); MONOCYTES % (AUTO) 11 % (0-12); NEUTROPHILS # (AUTO) 4.6 10^3/uL (1.8-7.8); NEUTROPHILS % (AUTO) 72 % (42-75); PLATELET COUNT 113 10^3/uL (130-400); WHITE BLOOD COUNT 6.4 10^3/uL (4.3-11.0)
[2022-12-03 00:29] LABS: ALANINE AMINOTRANSFERASE 16 U/L (0-55); ALKALINE PHOSPHATASE 147 U/L (40-136); BILIRUBIN,TOTAL 0.3 MG/DL (0.1-1.0); BUN/CREATININE RATIO 20; CALCIUM 9.3 MG/DL (8.5-10.1); CARBON DIOXIDE 27 MMOL/L (21-32); CHLORIDE 101 MMOL/L (98-107); CREATININE SERUM 0.96 MG/DL (0.60-1.30); GFR ESTIMATED 79; GLUCOSE 107 MG/DL (70-105); POTASSIUM 4.4 MMOL/L (3.6-5.0); SODIUM 136 MMOL/L (135-145)
[2022-12-03 00:30] LABS: ALBUMIN 3.7 GM/DL (3.2-4.5); TOTAL PROTEIN 6.5 GM/DL (6.4-8.2)
[2022-12-03 00:48] LABS: INR 1.1 (0.8-1.4)
[2022-12-03 00:49] LABS: FIBRIN DEGRADATION PRODUCTS 13.81 UG/ML (0.00-0.49)
[2022-12-03] MEDS ORDERED: ENOXAPARIN 60 MG/0.6 ML (LOVENOX) SYR SC STA (01:11)
[2022-12-03] MEDS ORDERED: ENOXAPARIN 60 MG/0.6 ML (LOVENOX) SYR ONE (01:16)
== END 2022-12-03 01:30 | disposition home or self-care (01) ==
LOC: EDUNIT# 23:36 → ER FS 23:37
DX: R79.1 Abnormal coagulation profile (principal); M25.561 Pain in right knee; Z87.891 Personal history of nicotine dependence
CPT/HCPCS: 36415; 80053; 84484; 85025; 85379; 85610; 85730

== ENCOUNTER → 2022-12-03 | Outpatient (CLI) | payer MEDICARE ==
--- NOTE | 2022-12-03 12:09 | Diagnostic Imaging Report ---
INDICATION: Right leg pain. Right leg venous Doppler study was performed in the routine fashion with color flow Doppler and waveform analysis. FINDINGS: The right common femoral vein, superficial femoral vein, popliteal vein and visualized portion of the tibial veins show normal compressibility and venous flow patterns. There is normal augmentation. IMPRESSION: No evidence of deep vein thrombosis of the major veins of the right leg. Dictated by: Dictated on workstation # [id number]
== END ==
LOC: RAD 10:30
PROVIDERS: ATTEND Specialist
DX: M79.604 Pain in right leg (principal); R22.41 Localized swelling, mass and lump, right lower limb